=== PATIENT | male | born 1960 | race Caucasian/White ===

== ENCOUNTER → 2016-06-09 | Outpatient (CLI) | payer OTHER ==
--- NOTE | 2016-06-09 14:08 | XR ---
EXAMINATION TYPE: XR chest 2V DATE OF EXAM: 06/09/2016 1:55 PM COMPARISON: NONE HISTORY: Shortness of breath TECHNIQUE: Frontal and lateral views of the chest are obtained. FINDINGS: Scattered senescent parenchymal changes noted. Hyperinflation compatible with COPD. No evidence for infiltrate. No evidence for atelectasis. Heart size is stable. Mediastinal structures are stable and grossly unremarkable. No evidence for hilar prominence. Degenerative changes dorsal spine. IMPRESSION: 1. No evidence for acute pulmonary disease.
== END | disposition home or self-care (01) ==
LOC: RADXRMAIN 13:35
PROVIDERS: ATTEND Family Medicine
DX: F17.200 Nicotine dependence, unspecified, uncomplicated (principal); R93.8 Abnormal findings on diagnostic imaging of other specified body structures
CPT/HCPCS: 71020

== ENCOUNTER → 2018-01-22 | Outpatient (CLI) | payer OTHER ==
[2018-01-22 09:22] LABS: ALT 46 U/L (21-72); AST 28 U/L (17-59); Cholesterol 141 mg/dL (<200); HDL Cholesterol 36 mg/dL (40-60); LDL Cholesterol,Calculated 95 mg/dL (0-99); Triglycerides 49 mg/dL (<150)
== END | disposition home or self-care (01) ==
LOC: LABWHC1 08:12
PROVIDERS: ATTEND Internal Medicine Cardiovascular Disease
DX: E78.2 Mixed hyperlipidemia (principal)
CPT/HCPCS: 36415; 80061; 84450; 84460

== ENCOUNTER 2019-10-10 07:30 | Emergency (ER) | payer OTHER ==
[2019-10-10] MEDS ORDERED: DIPH,PERTUS(ACELL)TETVAC-LF 0.5 ML VIAL IM ONE (07:53)
--- NOTE | 2019-10-10 07:57 | ED ---
General Adult HPI - General Chief complaint: Fall Stated complaint: fall Time Seen by Provider: 10/10/19 07:43 Source: patient, RN notes reviewed, old records reviewed Mode of arrival: ambulatory Limitations: no limitations - History of Present Illness Initial comments: 59 yo male presenting for evaluation of left ankle pain. Patient had fallen from a ladder landing on his left ankle this occurred yesterday. He's had increased pain and swelling in the left ankle since the fall. He denies head neck or back trauma. His only complaint is left ankle pain. He did have an abrasion on the medial aspect of his left ankle and is uncertain of when his last tetanus immunization was. No anticoagulation. - Related Data Home Medications Medication Instructions Recorded Confirmed Aspirin 325 mg PO HS 07/02/14 07/02/14 Previous Rx's Medication Instructions Recorded Aspirin 325 mg PO DAILY tab 07/03/14 Atorvastatin [Lipitor] 80 mg PO HS #90 tab 07/03/14 Metoprolol Tartrate [Lopressor] 25 mg PO BID #180 tab 07/03/14 Nitroglycerin Sl Tabs [Nitrostat] 0.4 mg SUBLINGUAL Q5M PRN #25 tab 07/03/14 Prasugrel [Effient] 10 mg PO DAILY #90 tab 07/03/14 Allergies Allergy/AdvReac Type Severity Reaction Status Date / Time No Known Allergies Allergy Verified 10/10/19 07:39 Review of Systems ROS Statement: Those systems with pertinent positive or pertinent negative responses have been documented in the HPI. ROS Other: All systems not noted in ROS Statement are negative. Past Medical History Past Medical History: Coronary Artery Disease (CAD), GERD/Reflux, Hyperlipidemia, Hypertension, Myocardial Infarction ([place]) Additional Past Medical History / Comment(s): ( NSTEMI 07-02-14), KIDNEY STONES. RT INGUINAL HERNIA History of Any Multi-Drug Resistant Organisms: None Reported Past Surgical History: Appendectomy, Heart Catheterization With Stent, Tonsillectomy Additional Past Surgical History / Comment(s): 1989 HAD POLYP REMOVED FROM THROAT-BENIGN, 07-02-14 STENT TO LAS Past Anesthesia/Blood Transfusion Reactions: No Reported Reaction Date of Last Stent Placement:: 07-02-14 Past Psychological History: No Psychological Hx Reported Smoking Status: Current every day smoker Past Alcohol Use History: None Reported Past Drug Use History: None Reported - Past Family History Father Family Medical History: Myocardial Infarction ([place]) Additional Family Medical History / Comment(s): from massive mi age 42 Mother Family Medical History: Unable to Obtain General Exam Limitations: no limitations General appearance: alert, in no apparent distress Head exam: Present: atraumatic, normocephalic Eye exam: Present: normal appearance, PERRL Neck exam: Present: normal inspection Respiratory exam: Present: normal lung sounds bilaterally. Absent: respiratory distress, wheezes Cardiovascular Exam: Present: regular rate, normal rhythm GI/Abdominal exam: Present: soft. Absent: distended, tenderness, guarding Extremities exam: Present: tenderness, joint swelling, calf tenderness, other (Left ankle is swollen, ecchymotic, there is soft tissue swelling and abrasion on the medial aspect. No laceration noted. Patient is able to move all digits. ) Course Vital Signs 10/10/19 07:33 Temperature 97.7 F Pulse Rate 81 Respiratory 18 Rate Blood Pressure 116/73 O2 Sat by Pulse 99 Oximetry Procedures - Orthopedic Splinting/Casting Injury #1 Side: left Lower Extremity Injury Location: ankle Lower Extremity Immobilizer: stirrup splint Other Orthopedic Equipment: crutches Additional Comments: Patient has normal cap refill, normal sensation, neurovascularly intact both before and after splinting. Medical Decision Making - Medical Decision Making 59-year-old with left ankle injury. X-rays performed, negative for acute fracture dislocation, showing significant soft tissue swelling which is apparent on exam. I'll ultrasound performed which is negative for DVT. Patient has large amount of soft tissue swelling and ecchymosis, there is concern for ligamentous injury. He is placed in a splint in the emergency department. He is instructed to elevate and ice the extremity. He will take Motrin for pain. He has crutches and will be nonweightbearing. He is given orthopedic follow-up. Disposition Clinical Impression: Ankle sprain Disposition: HOME SELF-CARE Condition: Good Instructions (If sedation given, give patient instructions): Ankle Sprain (ED) Is patient prescribed a controlled substance at d/c from ED?: No Referrals: Alethea Dior MD [Primary Care Provider] - 1-2 days Les Ramos DO [Medical Doctor] - 1-2 days Time of Disposition: 09:37
--- NOTE | 2019-10-10 08:34 | XR ---
EXAMINATION TYPE: XR tibia fibula LT, XR ankle complete LT DATE OF EXAM: 10/10/2019 CLINICAL HISTORY: Left ankle and lower extremity pain after fall off of a ladder and subsequent contu varun. TECHNIQUE: Two views of the left leg are obtained. COMPARISON: None. FINDINGS: There is no acute fracture or dislocation seen in the left tibia or fibula. The left knee and ankle joints appear within normal limits. Subcutaneous soft tissue swelling is seen of the mid a nd distal medial left lower extremity. Soft tissue swelling is also seen over the ankle joint. Small calcaneal heel spur. IMPRESSION: Subcutaneous soft tissue swelling over the medial lower extremity and ankle without acute fracture or dislocation seen in the left ankle, tibia or fibula.
--- NOTE | 2019-10-10 09:18 | US ---
EXAMINATION TYPE: US venous doppler duplex LE LT DATE OF EXAM: 10/10/2019 9:07 AM COMPARISON: US 2008 CLINICAL HISTORY: dvt sp trauma. Left lower leg pain and swelling following fall off ladder couple da ys ago SIDE PERFORMED: Left TECHNIQUE: The lower extremity deep venous system is examined utilizing real time linear array sonog danielle with graded compression, doppler sonography and color-flow sonography. VESSELS IMAGED: External Iliac Vein (EIV) Common Femoral Vein Deep Femoral Vein Greater Saphenous Vein * Femoral Vein Popliteal Vein Small Saphenous Vein * Proximal Calf Veins (* superficial vessels) Grayscale, color doppler, spectral doppler imaging performed of the deep veins of the left lower extr emities. There is normal flow, compressibility, vascular waveforms. Left Leg: Appears negative for DVT IMPRESSION: No sonographic evidence of deep venous thrombosis within the left lower extremities.
[2019-10-10 09:54] VITALS: BP 111/84; PULSE 71; RESP 16; TEMP 97.5
== END 2019-10-10 09:54 | disposition home or self-care (01) ==
LOC: EC 07:30
DX: S93.402A Sprain of unspecified ligament of left ankle, initial encounter (principal); I25.10 Atherosclerotic heart disease of native coronary artery without angina pectoris; I10 Essential (primary) hypertension; I25.2 Old myocardial infarction; F17.200 Nicotine dependence, unspecified, uncomplicated; Z23 Encounter for immunization; Z79.82 Long term (current) use of aspirin; Z95.5 Presence of coronary angioplasty implant and graft; W11.XXXA Fall on and from ladder, initial encounter; Y93.89 Activity, other specified; Y92.89 Other specified places as the place of occurrence of the external cause
CPT/HCPCS: 29515; 90471; 90715; 99284

== ENCOUNTER → 2020-07-08 | Outpatient (CLI) | payer OTHER ==
[2020-07-08 20:55] LABS: Chol/HDL Ratio 4.56
== END | disposition home or self-care (01) ==
LOC: LABWHC1 12:13
PROVIDERS: ATTEND Internal Medicine Cardiovascular Disease
DX: E78.2 Mixed hyperlipidemia (principal)
CPT/HCPCS: 36415; 80061; 84450; 84460

== ENCOUNTER → 2021-07-30 | Outpatient (CLI) | payer OTHER ==
--- NOTE | 2021-07-30 10:08 | CTL ---
EXAMINATION TYPE: CT Low Dose Lung DATE OF EXAM ORDERED: 07/30/2021 HISTORY: 61-year-old male presents with history of tobacco use. Lung cancer screening CT DLP: 117.[address] CTDI: 3.1 mGy Automated exposure control for dose reduction was used. SCREENING VISIT: Baseline COMPARISON: Chest x-ray 06/09/2016 TECHNIQUE: Low dose computed tomography scan was performed through the chest with coronal and sagitta l reconstructions. CT DIAGNOSTIC QUALITY: Satisfactory FINDINGS: Heart is normal size without pericardial effusion. Three-vessel coronary artery calcifications are pr esent. Mild to moderate atherosclerotic arch calcifications with a bovine configuration to the aortic arch. Numerous nonenlarged and borderline and mildly enlarged mediastinal lymph nodes are present. These me asure up to 1 cm upper paratracheal, 1.4 cm prevascular space, 1.2 cm short axis AP window, 2.4 x 1.7 cm lower right paratracheal, and 1.7 cm short axis subcarinal. There is moderate to advanced centrilobular emphysema. No consolidation or pleural effusion. There is a 2.4 cm large nodule at the periphery of the right base and smaller 1.0 cm nodule anterior basilar right lower lobe. Further PET/CT evaluation recommended. Visualized upper abdomen shows no gross abnormality. Bones: Mild degenerative disc disease with disc bulges mid to lower thoracic spine. Osteopenia. No os seous destructive process seen. IMPRESSION: 1. COPD with moderate to advanced emphysema. Large 2.4 cm nodule and smaller adjacent 1.0 cm nodule a t the right base. Neoplasm not excluded and further PET/CT evaluation is recommended. 2. Nonspecific numerous nonenlarged and borderline and mildly enlarged mediastinal lymph nodes, large st measuring 2.4 x 1.7 cm lower paratracheal. This can be concurrently evaluated on PET/CT. 3. CAD with 3 vessel coronary artery calcifications. CT LUNG RAD AND CT CHEST RECOMMENDATION: Lung-Rad 4B or 4X Very Suspicious: Follow-up Chest CT with o r without contrast or PET/CT and/or tissue sampling. PET/CT may be used when there is a > 8 mm solid component. S Modifier (other clinically significant findings): None
== END | disposition home or self-care (01) ==
LOC: RADCTMAIN 08:36
PROVIDERS: ATTEND Family Medicine
DX: Z12.2 Encounter for screening for malignant neoplasm of respiratory organs (principal); Z87.891 Personal history of nicotine dependence; R91.1 Solitary pulmonary nodule; J44.9 Chronic obstructive pulmonary disease, unspecified
CPT/HCPCS: 71271

== ENCOUNTER → 2021-08-27 | Outpatient (CLI) | payer OTHER ==
--- NOTE | 2021-08-27 15:50 | PE ---
EXAMINATION TYPE: PET CT fusion skull to thigh DATE OF EXAM: 08/27/2021 COMPARISON: Low-dose lung screening CT July 30, 2021 HISTORY: Solitary pulmonary nodule, abnormal CT. TECHNIQUE: Following the intravenous administration of 11.26 mCi of F-18 FDG, whole body images are performed from the skull base to the midthigh. Images are reviewed on the computer in the coronal, a xial, and sagittal planes. Reconstructed rotating images are created on independent workstation and reviewed on the computer. A localization and attenuation correction CT is performed in conjunction with the PET scan. Blood glucose level equals 91. SCAN: Initial Scan FINDINGS: SKULL BASE AND NECK: No areas of abnormal hypermetabolic uptake. CHEST, MEDIASTINUM, AND HILAR REGION: Persistent moderate to advanced underlying emphysematous change with fairly moderate diffuse fibrosis redemonstrated. Redemonstration of posterior 2.4 x 2.0 cm righ t basilar nodule with abnormal hypermetabolic uptake, max SUV is 4.14 on axial image 131. There is 9 mm smaller nodule just anterior and superior to this without abnormal hypermetabolic uptake redemonst rated. Prominent mediastinal lymph nodes redemonstrated some are greater than 1.0 cm short axis but n o abnormal hypermetabolic uptake. ABDOMEN AND PELVIS: Normal excretion. No adrenal masses are identified. OSSEOUS STRUCTURES: No abnormal hypermetabolic uptake. OTHER CT: Mild to moderate calcified plaque bilateral carotid bulbs. Moderate to severe coronary yani ry calcification redemonstrated. Mild calcified plaque of the aorta extends into branch vessels. Ther e is large right inguinal hernia containing multiple nondilated small bowel loops along with fat and mesenteric vessels. IMPRESSION: Suspicious hypermetabolic uptake in the larger posterior right basilar nodule worrisome f or neoplasm. No abnormal hypermetabolic uptake to suggest abnormal thoracic adenopathy or metastatic disease. Note is made of bowel containing large right inguinal hernia.
== END | disposition home or self-care (01) ==
LOC: RADPETMAIN 08:21
PROVIDERS: ATTEND Family Medicine
DX: K40.90 Unilateral inguinal hernia, without obstruction or gangrene, not specified as recurrent (principal)
CPT/HCPCS: 78815; A9552

== ENCOUNTER → 2021-12-10 | Outpatient (CLI) | payer OTHER ==
--- NOTE | 2021-12-10 11:59 | US ---
EXAMINATION TYPE: US carotid duplex BILAT DATE OF EXAM: 12/10/2021 COMPARISON: NONE CLINICAL HISTORY: I77.9 DISORDER OF ARTERIES AND ARTERIOLES. stenosis TECHNIQUE: Carotid duplex ultrasound examination. Indirect Doppler criteria was utilized. FINDINGS: EXAM MEASUREMENTS: RIGHT: Peak Systolic Velocity (PSV) cm/sec ----- Right CCA: 113 ----- Right ICA: 79.3 ----- Right ECA: 125 ICA/CCA ratio: .7 RIGHT: End Diastole cm/sec ----- Right CCA: 29.9 ----- Right ICA: 33.8 ----- Right ECA: 16.2 LEFT: Peak Systolic Velocity (PSV) cm/sec ----- Left CCA: 96.9 ----- Left ICA: 74.3 ----- Left ECA: 111 ICA/CCA ratio: .8 LEFT: End Diastole cm/sec ----- Left CCA: 21.7 ----- Left ICA: 29 ----- Left ECA: 9.06 VERTEBRALS (direction of flow): Right Vertebral: Antegrade Left Vertebral: Antegrade Rhythm: Normal PATENTS EXAMINER NOTES: Intimal thickening is present. Bilateral plaque visualized. IMPRESSION: Atheromatous plaquing without significant flow-limiting stenosis bilateral carotid vessels. Criteria for Assigning % of Stenosis / Diameter reduction (Estimation based on the indirect measurements of the internal carotid artery velocities (ICA PSV). 1. Normal (no stenosis)=ICA PSV < 125 cm/s: ratio < 2.0: ICA EDV<40 cm/s. 2. Less than 50% stenosis=ICA PSV < 125 cm/s: ratio < 2.0: ICA EDV<40 cm/s. 3. 50 to 69% stenosis=ICA PSV of 125 to 230 cm/s: ration 2.0 ? 4.0: ICA EDV 40-100 cm/s. 4. Greater than 70% stenosis to near occlusion= ICA PSV > 230 cm/s: ratio > 4.0: ICA EDV > 100 cm/s. 5. Near occlusion= ICA PSV velocities may be low or undetectable: variable ratio and ICA EDV. 6. Total occlusion=unable to detect flow.
== END | disposition home or self-care (01) ==
LOC: RADUSWWP 10:55
PROVIDERS: ATTEND Family Medicine
DX: I65.23 Occlusion and stenosis of bilateral carotid arteries (principal)
CPT/HCPCS: 93880

== ENCOUNTER 2022-01-11 12:12 | Day surgery (SDC) | payer OTHER ==
[~2022-01-11 12:12] MED LIST: ALBUTEROL NEB (CONC) 2.5 MG/0.5 ML INHALATION ONE; LACTATED RINGERS 1,000 ML IV SCH; LIDOCAINE 2% (PF) 20 MG/ML 5 ML VIAL INHALATION ONE; LIDOCAINE VISCOUS 300 MG/15 ML CUP MUCOUS MEM ONE; SODIUM CHLORIDE 0.9% 1,000 ML IV SCH
[2022-01-11] MEDS ORDERED: fentaNYL (PF) 50 MCG/ML 2 ML AMP ONE (13:25)
[2022-01-11] MEDS ORDERED: LIDOCAINE 4% LTA KIT (4 ML) TOPICAL ONE (13:25)
[2022-01-11] MEDS ORDERED: PHENYLEPHRINE-0.9% NACL SYG 1,000 MCG/10 ML SYRINGE ONE (13:25)
[2022-01-11] MEDS ORDERED: LIDOCAINE 2% INJ 20 MG/ML (2 ML VIAL) ONE (13:25)
[2022-01-11] MEDS ORDERED: PROPOFOL 10 MG/ML 20 ML VIAL IV ONE (13:25)
[2022-01-11] MEDS ORDERED: SUCCINYLCHOLINE CHLORIDE 200 MG/10 ML VIAL IV ONE (13:25)
[2022-01-11] MEDS ORDERED: ePHEDrine 50 MG/ML 1 ML VIAL ONE (13:25)
[2022-01-11] MEDS ORDERED: MIDAZOLAM 2 MG/2 ML VIAL ONE (13:25)
--- NOTE | 2022-01-11 13:37 | CT ---
EXAMINATION TYPE: CT Chest whitney Higgins Protocol DATE OF EXAM: 01/11/2022 COMPARISON: 08/27/2021, 07/30/2021 HISTORY: Pre bronchial navigation CT DLP: 692 mGycm Automated exposure control for dose reduction was used. FINDINGS: Hypertrophic changes in the spine and chronic rib cage deformities on the right noted small hiatal he rnia is seen. Structures of the upper abdomen demonstrate no additional abnormality. Nonspecific 2 mm lucency involving the left transverse process of T12 with fusion of the vertebral costal junction. T his should be monitored on a short-term basis given the presence of lung nodule. Early metastatic dis ease would be difficult to exclude. Coronary artery calcification and atherosclerotic change aorta. Shotty adenopathy in the mediastinum. Suspect pathologic adenopathy in the left hilum measuring short axis of 1.5 cm. Diffuse emphysematou s changes are seen with centrilobular and paraseptal emphysematous changes. Large mass at the right l zechariah base measuring 3.5 cm noted. Additional right lower lobe pulmonary nodules measuring 1 cm again n oted. IMPRESSION: 1. Preprocedural planning with large right lower lobe lung mass. See above. 2. Diffuse emphysematous changes. 3. Coronary artery calcification. 4. Pathologic adenopathy left hilum measuring 1.5 cm short axis.
[2022-01-11] MEDS ORDERED: SODIUM CHLORIDE 0.9% 500 ML 500 ML IV ONE (15:08)
--- NOTE | 2022-01-11 15:14 | P.PCN ---
Date of Procedure: 01/11/22 Operative Findings: Operative Findings: 1 right lower lobe mass 2 Mediastinal lymphadenopathy Postoperative Diagnosis: 1 right lower lobe mass 2 mediastinal lymphadenopathy Procedure(s) Performed: 1 flexible bronchoscopy, airway inspection 2 navigation bronchoscopy, transbronchial biopsy of a right on the right lower lobe mass, brushing of the right lower lobe mass, transbronchial needle aspirate of the right lower lobe mass 3 endobronchial ultrasound 4 EBUS guided transbronchial needle aspirate of subcarinal station 7 and paratracheal lymph nodes Surgeon: Lisa Barnes Director Orange #1: Renate Christopher Estimated Blood Loss (ml): 5 cc Pathology: TBBX, brushings and needle aspirate of the right lower lobe mass i The TBNA of station 7 and station 4R lymph nodes Condition: stable Disposition: same day Operative Findings: The patient had a preoperative computed tomography scan of the chest using the Veran protocol. The CAT scan images were reviewed. The right lower lobe opacity was identified it was mapped appropriately. The CAT scan images are uploaded into a USB and then into the [employer] tower. After obtaining the consent the patient was taken to the OR suite he was i ntubated and put on mechanical ventilation by anesthesia then the scope was advanced to the ET tube until the Trachea was seen and it was normal and then the elsy appears normal then the scope advanced to the left main and ERIN LB1- LB3 were seen and no endobronchial lesions were seen then the scope advanced to the lingula and the LB4 and LB5 were seen and no endobronchial lesions were seen the scope retracted and advanced to the left lower lobes LB6 to LB12 were seen one by one and no endobronchial lesions, then the scope was retracted back to the elsy and advanced to the Right main and RUL RB1 and RB2 and RB3 were seen one by one and no endobronchial lesions were seen the scope. The bronchoscope was then retracted and advanced to the BI and RML RB4 and RB5 were seen and no endobronchial lesions were seen then it was retracted and advanced to the RLL RB6 to RB12 were seen one by one and no endobronchial lesions. Navigation bronchoscopy was performed. The main elsy and the secondary elsy on the left were used as the reference points and appropriate calibration was done. Following that, using a navigation guidance , the bronchoscope was advanced to the right lower lobe superior segment and various transbronchial biopsies, transbronchial brushings and transbronchial needle aspirate of of the right lower lobe opacity was done without any complications. Then EBUS was used and the lymph nodes were examined. Direct measurement of the mediastinal lymph nodes revealed a 20x15 mm station 4R lymph node, 25x20 mm station 7 lymph node . Several other smaller lymph nodes were seen scattered in the paratracheal region involving precarinal, left paratracheal thoracic area. I performed transbronchial needle aspirate of station 7 and a total of 5 passes FNA without major bleeding station 4 R lymph nodes were a total of 3 passes were obtained. No major bleeding and the scope was removed and taken out in total the patient was send to the floor in stable condition The bronchoscope was removed, the patient will be extubated and then transferred to recovery. A follow-up chest x-ray will be done in recovery.
[2022-01-11 15:23] VITALS: TEMP 97
[2022-01-11 15:24] VITALS: RESP 16
--- NOTE | 2022-01-11 16:09 | XR ---
EXAMINATION TYPE: XR chest 1V DATE OF EXAM: 01/11/2022 4:03 PM COMPARISON: Chest radiographs from 01/07/2022, CT chest 01/11/2022. TECHNIQUE: XR chest 1V Frontal view of the chest. CLINICAL INDICATION:Male, 61 years old with history of RLL biopsy; FINDINGS: Lungs/Pleura: There is flattening of the diaphragm with increased lucency of the lungs. No evidence o f pneumothorax, pleural effusion or focal consolidation. Prominent/coarsened interstitial lung markin gs bilaterally. No pneumothorax, pleural effusion or focal consolidation. Known right lower lobe nodu les not well visualized. Pulmonary vascularity: Unremarkable. Heart/mediastinum: Cardiomediastinal silhouette is unremarkable. Atherosclerotic calcifications are seen in the aorta. Musculoskeletal: No acute osseous pathology. IMPRESSION: 1. No pneumothorax. 2. COPD changes with prominent interstitial lung markings likely representing fibrotic changes. 3. Known right lower lobe nodule is not well visualized.
[2022-01-11 16:24] VITALS: BP 132/79; PULSE 75
== END 2022-01-11 16:50 | disposition home or self-care (01) ==
LOC: ORWHC2ENDO 12:12
PROVIDERS: ATTEND Internal Medicine Critical Care Medicine
DX: R91.1 Solitary pulmonary nodule (principal); I25.2 Old myocardial infarction; I25.10 Atherosclerotic heart disease of native coronary artery without angina pectoris; I10 Essential (primary) hypertension; K21.9 Gastro-esophageal reflux disease without esophagitis; Z79.52 Long term (current) use of systemic steroids; Z79.899 Other long term (current) drug therapy; Z95.5 Presence of coronary angioplasty implant and graft; J44.9 Chronic obstructive pulmonary disease, unspecified; Z90.89 Acquired absence of other organs; Z98.890 Other specified postprocedural states; Z84.89 Family history of other specified conditions; Z87.891 Personal history of nicotine dependence
CPT/HCPCS: 31629; 88104; 88305; 88173; 88342; 88341; 71045; 71250; 31625; 31633; 31627; 31652; J2250; J0330; J3010; J2370; J2704; J2001; 31623

== ENCOUNTER → 2022-01-28 | Outpatient (CLI) | payer OTHER ==
[2022-01-28 10:50] LABS: Partial Thromboplastin Time 24.7 sec (22.0-30.0); Prothrombin Time 10.6 sec (9.0-12.0)
[2022-01-28 14:51] LABS: Basophils # (A) 0.05 X 10*3/uL (0.00-0.10); Basophils % (A) 0.6 %; Eosinophils # (A) 0.12 X 10*3/uL (0.04-0.35); Eosinophils % (A) 1.3 %; HCT 46.7 % (39.6-50.0); HGB 15.8 g/dL (13.0-17.0); Immature Grans, Automated 0.3 %; Lymphocytes # (A) 2.54 X 10*3/uL (0.90-5.00); Lymphocytes % (A) 28.2 %; MCH 32.4 pg (27.0-32.0); MCHC 33.8 g/dL (32.0-37.0); MCV 95.7 fL (80.0-97.0); Mean Platelet Volume 9.4 fL (9.5-12.2); Monocytes # (A) 0.67 X 10*3/uL (0.20-1.00); Monocytes % (A) 7.4 %; NRBC Per 100 WBC 0 /100 WBCS (0.0-0.0); Neutrophils # (A) 5.59 X 10*3/uL (1.80-7.70); Neutrophils % (A) 62.2 %; Platelet Count 195 X 10*3/uL (140-440); RBC 4.88 X 10*6/uL (4.40-5.60); RDW 13.7 % (11.5-14.5)
[2022-01-28 16:13] LABS: African American GFR (CKD) 96.1 (60.0-200.0); Anion Gap 9.3 mmol/L (10.00-18.00); Blood Urea Nitrogen 17.7 mg/dL (9.0-27.0); Carbon Dioxide 23.4 mmol/L (20.0-27.5); Non-African American GFR(CKD) 82.9 (60.0-200.0)
== END | disposition home or self-care (01) ==
LOC: LABPAT 09:28
PROVIDERS: ATTEND Thoracic Surgery (Cardiothoracic Vascular Surgery)
DX: Z01.812 Encounter for preprocedural laboratory examination (principal); R91.1 Solitary pulmonary nodule
CPT/HCPCS: 80051; 82565; 82947; 84520; 85025; 85610; 85730; 86850; 86900; 86901

== ENCOUNTER 2022-02-04 05:52 | Inpatient (IN) | payer OTHER ==
[2022-02-04] MEDS ORDERED: DEXAMETHASONE SOD PHOSPHATE 4 MG/ML 1 ML VIAL IV ONE (05:53)
[2022-02-04] MEDS ORDERED: LACTATED RINGERS 1,000 ML IV SCH (05:53)
[2022-02-04] MEDS ORDERED: MIDAZOLAM 2 MG/2 ML VIAL IV PRN (05:53)
[2022-02-04] MEDS ORDERED: ONDANSETRON 4 MG/2 ML VIAL IVP ONE (05:53)
[2022-02-04] MEDS ORDERED: LIDOCAINE 1% (10MG/ML) FOR IV START INTRADERMA PRN (05:53)
[2022-02-04] MEDS ORDERED: HYDROmorphone 0.5 MG/0.5 ML SYRINGE IVP PRN ×2 (07:00→15:03)
[2022-02-04] MEDS ORDERED: MIDAZOLAM 2 MG/2 ML VIAL IV ONE (07:07)
[2022-02-04] MEDS ORDERED: ALBUMIN HUMAN 5% (25gm) 500 ML VIAL IVPB ONE (07:15)
[2022-02-04] MEDS ORDERED: ROPIVACAINE 5 MG/ML 30 ML VIAL ONE (07:15)
[2022-02-04] MEDS ORDERED: LIDOCAINE 2% INJ 20 MG/ML (2 ML VIAL) ONE (07:15)
[2022-02-04] MEDS ORDERED: GLYCOPYRROLATE 0.2 MG/ML 2 ML VIAL ONE (07:15)
[2022-02-04] MEDS ORDERED: SODIUM CHLORIDE 0.9% (PF) 10 ML VIAL ONE (07:15)
[2022-02-04] MEDS ORDERED: PHENYLEPHRINE-0.9% NACL SYG 1,000 MCG/10 ML SYRINGE ONE (07:15)
[2022-02-04] MEDS ORDERED: NEOSTIGMINE 1 MG/ML 10 ML VIAL ONE (07:15)
[2022-02-04] MEDS ORDERED: DEXAMETHASONE SOD PHOSPHATE 4 MG/ML 1 ML VIAL ONE (07:15)
[2022-02-04] MEDS ORDERED: ePHEDrine 50 MG/ML 1 ML VIAL ONE (07:15)
[2022-02-04] MEDS ORDERED: SUCCINYLCHOLINE CHLORIDE 200 MG/10 ML VIAL IV ONE (07:15)
[2022-02-04] MEDS ORDERED: MIDAZOLAM 2 MG/2 ML VIAL ONE (07:15)
[2022-02-04] MEDS ORDERED: PROPOFOL 10 MG/ML 20 ML VIAL IV ONE (07:15)
[2022-02-04] MEDS ORDERED: fentaNYL (PF) 50 MCG/ML 2 ML AMP ONE (07:15)
[2022-02-04] MEDS ORDERED: ROCURONIUM 10 MG/ML (5 ML VIAL) IV ONE (07:15)
[2022-02-04] MEDS ORDERED: HYDROmorphone (PF) 1 MG/ML ONE (07:15)
[2022-02-04] MEDS ORDERED: BUPIVACAINE (PF) 0.25% 30 ML VIAL SQ ONE ×4 (07:29→08:15)
[2022-02-04 09:30] LABS: Allen Test Performed? Yes
[2022-02-04 09:33] LABS: ABG Base Excess -9.3 mmol/L; ABG HCO3 18 mmol/L (21-25); ABG Oxygen Saturation 89.7 % (94-97); ABG PCO2 45 mmHg (35-45); ABG PH 7.22 (7.35-7.45); ABG PO2 65 mmHg (83-108); ABG TCO2 20 mmol/L (19-24)
[2022-02-04] MEDS ORDERED: LACTATED RINGERS 1,000 ML IV ONE ×2 (10:04→12:57)
[2022-02-04 10:40] LABS: Allen Test Performed? Yes
[2022-02-04 10:43] LABS: ABG Base Excess -8.2 mmol/L; ABG HCO3 19 mmol/L (21-25); ABG Oxygen Saturation 89.7 % (94-97); ABG PCO2 45 mmHg (35-45); ABG PH 7.24 (7.35-7.45); ABG PO2 64 mmHg (83-108); ABG TCO2 21 mmol/L (19-24)
[2022-02-04 11:44] LABS: Allen Test Performed? Yes
[2022-02-04 11:45] LABS: ABG Base Excess -10.7 mmol/L; ABG HCO3 17 mmol/L (21-25); ABG Oxygen Saturation 96.2 % (94-97); ABG PCO2 37 mmHg (35-45); ABG PH 7.25 (7.35-7.45); ABG PO2 88 mmHg (83-108); ABG TCO2 18 mmol/L (19-24)
[2022-02-04 14:42] LABS: Allen Test Performed? Yes
[2022-02-04 14:47] LABS: ABG Base Excess -7.5 mmol/L; ABG HCO3 20 mmol/L (21-25); ABG Oxygen Saturation 99.9 % (94-97); ABG PCO2 48 mmHg (35-45); ABG PH 7.23 (7.35-7.45); ABG PO2 215 mmHg (83-108); ABG TCO2 22 mmol/L (19-24)
[2022-02-04] MEDS ORDERED: IPRATROPIUM-ALBUTEROL 3 ML NEB IH PRN (15:03)
[2022-02-04] MEDS ORDERED: ONDANSETRON 4 MG/2 ML VIAL IVP PRN (15:03)
[2022-02-04] MEDS ORDERED: traMADol 50 MG TAB PO PRN ×2 (15:03)
[2022-02-04] MEDS ORDERED: DEXTROSE 5%-0.45% NACL 1,000 ML IV SCH (15:03)
[2022-02-04] MEDS ORDERED: SODIUM BICARB 8.4% 50 ML SYR (1 MEQ/ML) IV STA (15:24)
--- NOTE | 2022-02-04 15:32 | XR ---
EXAMINATION TYPE: XR chest 1V DATE OF EXAM: 02/04/2022 3:23 PM COMPARISON: Chest radiograph 01/11/2022, CT chest 01/11/2022. TECHNIQUE: XR chest 1V Frontal view of the chest. CLINICAL INDICATION:Male, 61 years old with history of post lobectomy; FINDINGS: Lungs/Pleura: Postsurgical changes from lobectomy with small right apical pneumothorax. COPD changes with similar bibasilar reticular interstitial opacities. Pulmonary vascularity: Unremarkable. Heart/mediastinum: Cardiomediastinal silhouette is unremarkable. Musculoskeletal: No acute osseous pathology. Other findings: None Lines/Tubes: Right thoracotomy tube is present and directed towards the lung apex without evidence of pneumothorax . IMPRESSION: 1. Post surgical changes from lobectomy with small right apical pneumothorax. Right thoracotomy tube tip is demonstrated at the right lung apex. 2. COPD changes with prominent bilateral interstitial reticular opacities likely are present fibroti c changes.
--- NOTE | 2022-02-04 15:36 | P.OP ---
Date of Procedure: 02/04/22 Preoperative Diagnosis: Lung Nodule Postoperative Diagnosis: Right lung carcinoma Procedure(s) Performed: 1. Bronchoscopy 2. Right video assisted thorascopic surgery converted to open anterolateral thoracotomy 3. Right lower lobe wedge resection of lung nodule 4. Right lower lobectomy 5. Mediastinal lymph node dissection 6. Intercostal nerve block 3 levels Implants: #28 F Chest tube Anesthesia: GETA Surgeon: Andrew Drew Estimated Blood Loss (ml): 750 IV fluids (ml): 3,000 Pathology: other (Right lower lobe wedge, lobectomy, LN stations 4,7,12) Condition: stable Disposition: ICU Indications for Procedure: This patient is a 61 year-old male who an extensive smoking history who had a lung cancer screening CT earlier this year that revealed two right lower lobe nodules, one of which was PET avid as well as some mediastinal lymphadenopathy. He underwent EBUS which did show some atypical cells in station 7 but other nodes were negative. He also underwent navigational bronchoscopy in an attempt to biopsy the nodule which was unsuccessful. Given these findings and no evidence of any other metastatic disease the decision was made to proceed with wedge biopsy followed by lobectomy if carcinoma. All risks, benefits and alternatives to surgery were discussed with the patient and he was in agreement to proceed. Operative Findings: Unable to tolerate single lung ventilation towards the end of the procedure. Converted to open to take posterior fissure and lymph nodes. Description of Procedure: The patient was brought to the operating room and placed in the supine position. He was intubated with a double lumen tube and general anesthesia was induced. Bronchoscopy was performed to check placement of the tube and for diagnostic purposes. There were no endobronchial lesions or secretions noted on either side. The patient was positioned in the left lateral decubitus position and the right chest was prepped and draped in the usual sterile fashion. A time-out was performed and antibiotics were given. I made a 2cm incision in the 7th ICS posterior axillary line. I made another 2cm incision 9th ICS mid axillary line and 6th ICS anterior axillary line. 0.25% m arcaine was used to create intercostal nerve blocks in these areas. The right lower lobe was inspected and the tumor was identified. The lung was fibrotic with severe adhesions to the upper lobe. These were taken down with harmonic. Several firings of the endo PARMJIT were used to wedge out the lower lobe mass. This was sent for frozen section analysis which was positive for carcinoma. The harmonic scalpel was used to take down the mediastinal pleura anteriorly and posteriorly as well as the inferior pulmonary ligament. The inferior pulmonary vein was identified, encircled and stapled using a vascular load. Next the anterior great fissure was taken using a firing of the endo PARMJIT purple load. Blunt dissection was carried out in the fissure to locate the ongoing pulmonary artery. The 3 separate branches of the PA were encircled and stapled separately given their proximity to the middle lobe branch. Next the bronchus to the lower lobe was identified, encircled with a vessel loop and stapled after a test clamp was performed which was negative. A level 12 node was taken at this point. At this point, the patient was not tolerating single lung ventilation due to very low reserve. We attempted to isolate and un-isolate multiple times but I could not see adequately enough to take the posterior fissue with the stapler. I decided to convert the procedure to an anterolateral thoracotomy. We then briefly isolated the lung for a few seconds and completed the posterior fissure with 2 firings of the endo PARMJIT purple load. The specimen was passed off to pathology. I then took level 4 and 7 lymph node stations. We could only isolate for a few seconds at a time, There were no major level 8 or 9 nodes noted. The chest was irrigated and a leak test was performed which was negative. A 28F chest tube was placed via the inferior camera incision and the thoracotomy was closed in layers of vicrl and PDS with 4 pericostal sutures. Skin glue was applied and the chest tube was attached to suction without air leak. The patient was extubated by the end of the procedure and went to recovery in stable condition. All counts were correct.
[2022-02-04] MEDS ORDERED: SODIUM BICARB 8.4% 50 ML VIAL (1 MEQ/ML) IV ONE (15:38)
[2022-02-04 16:24] LABS: ABG Base Excess 2.2 mmol/L; ABG HCO3 27 mmol/L (21-25); ABG PCO2 47 mmHg (35-45); ABG PH 7.37 (7.35-7.45); ABG TCO2 29 mmol/L (19-24); Allen Test Performed? Yes
[2022-02-04 16:26] LABS: ABG PO2 57 mmHg (83-108)
--- NOTE | 2022-02-04 16:40 | P.CNPUL ---
History of Present Illness Consult date: 02/04/22 Reason for consult: lung mass History of present illness: 61-year-old male patient with chronic smoking, COPD with a preserved FEV1 of 90% of predicted, And then impaired diffusion capacity of around 30% of predicted, was found to have a large right lower lobe mass and mediastinal lymphadenopathy. This was urgently found on a low-dose CAT scan of the chest that was done on 07/30/2021. PET scan showed also some mild metabolic activity in the right lower lobe pulmonary nodule. The mediastinum showed no metabolic activity. The patient did not follow with any physicians and [place] [facility] mid [place] for the same problem. At that point, I performed a medication bronchoscopy and endobronchial ultrasound and mediastinal lymph node sampling. The medication bronchoscopy was nondiagnostic. Nevertheless, the right lower lobe pulmonary nodule was and a CAT scan of the chest that was done on 01/12/2020 showed a right lower lobe mass measuring 3.5 cm in size. Additional right lower lobe pulmonary nodules measured 1 cm again was noted. The mediastinal lymph nodes were again enlarged and based on that the patient was taken to the operating room for a lobectomy. The patient underwent a initial right video-assisted thoracoscopic surgery that was converted to open anterolateral thoracotomy. 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 Following that, the patient underwent a right lower lobectomy and mediastinal lymph node sampling. Intercostal nerve block at 3 different levels were also done. The patient currently is extubated and the patient is currently on oxygen at 5 L per minute nasal cannula. His chest tube output is minimal at this point in time and there is no evidence of any air leak. . Blood gases showed a pH of 7.23 with a pCO2 of 48 and pO2 of 215 and this was done and FiO2 of 100% while the patient was still intubated. Another blood gases was sent from recovery and is also still pending for now.. The postoperative chest x-ray showed post thoracotomy changes in the right lower lobe. The patient has a right-sided chest tube in place. There could be a tiny right apical pneumothorax. Otherwise there is also some increased interstitial markings bilaterally in addition to COPD. the patient is calm and comfortable. The patient is currently on IV fluids with normal saline at the rate of 75 mL an hour. The patient will have a Bardales catheter inserted. A CBC will be also sent as the patient probably had excessive blood loss intraoperatively. A unit of packed RBCs also on hold for now. The patient is arousable. He is still in the postoperative state and is quite drowsy at very easily arousable. Pain seems to be under adequate control for now. He was given 2 doses of 50 mEq of sodium bicarb and the follow-up blood gases showed a pH of 7.37 with a pCO2 of 47 and a pO2 of 57. I'm going to increase the oxygen flow to 8 L nasal cannula. Review of Systems ROS unobtainable: due to mental status Past Medical History Past Medical History: Coronary Artery Disease (CAD), GERD/Reflux, Hyperlipidemia, Hypertension, Myocardial Infarction ([place]) Additional Past Medical History / Comment(s): PET SCAN ON 08/27/21 SHOWS RIGHT BASILAR LUNG NODULE. ( NSTEMI 07-02-14), KIDNEY STONES. RT INGUINAL HERNIA, emphysema Last Myocardial Infarction Date:: DATE UNKNOWN History of Any Multi-Drug Resistant Organisms: None Reported Past Surgical History: Appendectomy, Heart Catheterization With Stent, Tonsillectomy Additional Past Surgical History / Comment(s): 1989 HAD POLYP REMOVED FROM THROAT-BENIGN, 07-02-14 STENT TO LAS, recent aide. bronchoscopy Past Anesthesia/Blood Transfusion Reactions: No Reported Reaction Date of Last Stent Placement:: 07-02-14 Smoking Status: Current every day smoker - Past Family History Father Family Medical History: Myocardial Infarction ([place]) Additional Family Medical History / Comment(s): from [place] age 42 Mother Family Medical History: Unable to Obtain Medications and Allergies Home Medications Medication Instructions Recorded Confirmed Type Aspirin 325 mg PO HS 07/02/14 02/02/22 History Atorvastatin [Lipitor] 80 mg PO HS #90 tab 07/03/14 02/04/22 Rx Metoprolol Tartrate [Lopressor] 25 mg PO BID #180 tab 07/03/14 02/04/22 Rx Nitroglycerin Sl Tabs [Nitrostat] 0.4 mg SUBLINGUAL Q5M PRN #25 tab 07/03/14 02/04/22 Rx Fluticasone/Umeclidin/Vilanter 1 inhalation INHALATION HS 02/02/22 02/04/22 History [Trelegy Ellipta 100-62.5-25] Allergies Allergy/AdvReac Type Severity Reaction Status Date / Time No Known Allergies Allergy Verified 02/01/22 10:40 Physical Exam Vitals: Vital Signs Temp Pulse Pulse Resp BP BP BP 02/04/22 16:01 96.8 F L 79 16 86/41 02/04/22 15:05 97 F L 72 12 100/52 96/42 02/04/22 07:30 66 16 02/04/22 07:18 69 16 105/73 02/04/22 06:27 97.3 F L 73 18 107/64 Pulse Ox 02/04/22 16:01 95 02/04/22 15:05 98 02/04/22 07:30 95 02/04/22 07:18 96 02/04/22 06:27 95 Intake and Output 02/04/22 02/04/22 02/04/22 06:59 14:59 22:59 Intake Total 400 2650 0 Output Total 750 Balance 400 1900 0 Intake: IV 400 2650 Blood Product 0 Unit 0 Output: Estimated Blood Loss 750 Other: Weight 79.8 kg Gen. appearance the patient is calm and comfortable breathing normally on 5 L O2 nasal cannula. Breathing is nonlabored Head exam was generally normal. There was no scleral icterus or corneal arcus. Mucous membranes were moist. Neck was supple and without jugular venous distension, thyromegaly, or carotid bruits. Carotids were easily palpable bilaterally. There was no adenopathy. Lungs sounds are diminished in the right lung base. No wheezes overall currently crackles this point in time. There is a right-sided chest tube in place. Cardiac exam revealed the PMI to be normally situated and sized. The rhythm was regular and no extrasystoles were noted during several minutes of auscultation. The first and second heart sounds were normal and physiologic splitting of the second heart sound was noted. There were no murmurs, rubs, clicks, or gallops. Abdominal exam revealed normal bowel sounds. The abdomen was soft, non-tender, and without masses, organomegaly, or appreciable enlargement of the abdominal aorta. Examination of the extremities revealed easily palpable radial, femoral and pedal pulses. There was no cyanosis, clubbing or edema. Examination of the skin revealed no evidence of significant rashes, suspicious appearing nevi or other concerning lesions. Surgical wound site over the right chest area is dry clean and intact. The patient has not care line in his left radial artery. Neurologically, he is arousable. Moving all 4 extremities. Neurologic exam is nonfocal. Results - Laboratory Findings ABG ABG pH 7.23 (7.35-7.45) L 02/04/22 14:30 ABG pCO2 48 mmHg (35-45) H 02/04/22 14:30 ABG pO2 215 mmHg (83-108) H 02/04/22 14:30 ABG O2 Saturation 99.9 % (94-97) H 02/04/22 14:30 Abnormal lab findings: Abnormal Labs 01/28/22 02/04/22 02/04/22 09:58 09:19 10:39 ABG pH 7.22 L 7.24 L ABG pCO2 ABG pO2 65 L 64 L ABG HCO3 18 L 19 L ABG Total CO2 ABG O2 Saturation 89.7 L 89.7 L Crossmatch See Detail 02/04/22 02/04/22 11:30 14:30 ABG pH 7.25 L 7.23 L ABG pCO2 48 H ABG pO2 215 H ABG HCO3 17 L 20 L ABG Total CO2 18 L ABG O2 Saturation 99.9 H Crossmatch - Diagnostic Findings Chest x-ray: image reviewed Assessment and Plan Plan: Right lower lobe mass 3.5 cm along with mediastinal lymphadenopathy. No indication bronchoscopy and EBUS sampling of the distal lymph nodes were nondiagnostic. The patient underwent a lesion wedge resection of the right lower lobe followed by a completion right lower lobectomy and mediastinal lymph node sampling. This was initially started with a thoracoscopic approach and following that the patient underwent open anterolateral thoracotomy. Currently postop day #0. The patient was extubated Acute hypoxic history failure currently on 5 L O2 nasal cannula and O2 flow is going to be adjusted. Most recent blood gases were noted COPD with impairment in diffusion capacity, preserved FEV1 based on the preop already function test Chronic smoker Known history of coronary artery disease History of non-ST segment elevation myocardial infarction June 2014 Hypertension Hyperlipidemia Plan Transfer the patient to the intensive care unit Titrate oxygen flow to maintain a saturation above 90% Increase his IV fluids to normal saline at the rate of 125 mL an hour. His blood pressure is currently soft Inserted bardales Do a quick CBC and complete metabolic profile and transfuse if needed Provide the patient incentive spirometer Monitor the output from the right-sided chest tube and currently there is no evidence of any air leak Daily chest x-rays DuoNeb nebulized treatment [id number] Compression devices to lower extremities for DVT prophylaxis We'll continue to follow and the patient is going to be changed to the intensive care unit for now.
[2022-02-04] MEDS ORDERED: SODIUM CHLORIDE 0.9% 1,000 ML IV SCH (16:45)
[2022-02-04] MEDS ORDERED: SODIUM CHLORIDE 0.9% 1,000 ML IV ONE (17:26)
[2022-02-04 17:59] LABS: Glucose,Whole Blood 143 mg/dL (70-110)
[2022-02-04] MEDS: HEPARIN SODIUM,PORCINE/PF 5,000 UNIT/0.5 ML SYRINGE SQ SCH (18:12)
[2022-02-04 18:27] LABS: ALT 27 U/L (4-49); AST 41 U/L (17-59); African American GFR (CKD) >90 (>60 ml/min/1.73 sqM); Alkaline Phosphatase 50 U/L (38-126); Anion Gap 9 mmol/L; Blood Urea Nitrogen 17 mg/dL (9-20); Calcium 7.3 mg/dL (8.4-10.2); Carbon Dioxide 23 mmol/L (22-30); Chloride 104 mmol/L (98-107); Glucose 147 mg/dL (74-99); Non-African American GFR(CKD) >90 (>60 ml/min/1.73 sqM); Potassium 3.9 mmol/L (3.5-5.1); Sodium 136 mmol/L (137-145); Total Bilirubin 1.6 mg/dL (0.2-1.3); Total Protein 4.8 g/dL (6.3-8.2)
[2022-02-04 18:29] LABS: Basophils % (A) 0 %; Eosinophils % (A) 0 %; HCT 35.2 % (39.0-53.0); HGB 11.6 gm/dL (13.0-17.5); Lymphocytes # (A) 0.6 k/uL (1.0-4.8); Lymphocytes % (A) 7 %; MCH 32.5 pg (25.0-35.0); MCHC 33.1 g/dL (31.0-37.0); MCV 98.2 fL (80.0-100.0); Mean Platelet Volume 7.3; Monocytes # (A) 0.4 k/uL (0-1.0); Monocytes % (A) 4 %; Neutrophils # (A) 8.2 k/uL (1.3-7.7); Neutrophils % (A) 89 %; Platelet Count 121 k/uL (150-450); RBC 3.58 m/uL (4.30-5.90); RDW 13.5 % (11.5-15.5); WBC 9.2 k/uL (3.8-10.6)
[2022-02-04] MEDS: IPRATROPIUM-ALBUTEROL 3 ML NEB IH SCH ×2 (18:32→21:00)
[2022-02-04 18:38] LABS: ABG Base Excess 1.1 mmol/L; ABG HCO3 26 mmol/L (21-25); ABG Oxygen Saturation 91.2 % (94-97); ABG PCO2 41 mmHg (35-45); ABG TCO2 27 mmol/L (19-24); Allen Test Performed? Yes
[2022-02-04 18:45] LABS: ABG PO2 56 mmHg (83-108)
[2022-02-04 18:46] LABS: INR 1.1 (<1.2); Partial Thromboplastin Time 24.8 sec (22.0-30.0); Prothrombin Time 11.7 sec (9.0-12.0)
[2022-02-04] MEDS ORDERED: FUROSEMIDE 10 MG/ML 2 ML VIAL IV ONE (18:58)
[2022-02-04] MEDS: POTASSIUM CHLORIDE 10 MEQ in WATER FOR INJECTION 1 100ML.BAG IVPB SCH ×2 (19:13→20:50)
--- NOTE | 2022-02-04 20:13 | XR ---
EXAMINATION TYPE: XR chest 1V portable DATE OF EXAM: 02/04/2022 HISTORY: Shortness of breath. COMPARISON: 02/04/22 TECHNIQUE: Single view of the chest is submitted. FINDINGS: Right-sided chest tube is unchanged in position. Previously noted tiny right apical pneumothorax is n ot redemonstrated at this time. Interstitial infiltrates throughout both lung gleason remain essentially unchanged. The heart is stable. Hilar and mediastinal structures are within normal limits. Degenerative changes are seen of the dorsal spine. IMPRESSION: 1. Right-sided chest tube is unchanged in position. Previously noted tiny right apical pneumothorax is not redemonstrated at this time.
[2022-02-04] MEDS ORDERED: ALBUMIN HUMAN 5% 250 ML in EMPTY BAG 1 BAG IVPB STA (20:22)
[2022-02-04] MEDS ORDERED: ALBUMIN HUMAN 5% 250 ML IVPB ONE (20:28)
[2022-02-04] MEDS ORDERED: ALBUMIN HUMAN 5% 250 ML in EMPTY BAG 1 BAG IVPB ONE (21:30)
[2022-02-05] MEDS: POTASSIUM CHLORIDE 10 MEQ in WATER FOR INJECTION 1 100ML.BAG IVPB SCH (00:42)
[2022-02-05] MEDS: ATORVASTATIN 80 MG TAB PO SCH ×2 (00:43→20:55)
[2022-02-05] MEDS: ASPIRIN 325 MG TAB PO SCH ×2 (00:43→20:55)
[2022-02-05] MEDS: HEPARIN SODIUM,PORCINE/PF 5,000 UNIT/0.5 ML SYRINGE SQ SCH ×3 (00:43→16:55)
[2022-02-05] MEDS: METOPROLOL TARTRATE 25 MG TAB PO SCH ×2 (00:43→08:40)
[2022-02-05 05:20] LABS: Basophils % (A) 0 %; Eosinophils % (A) 0 %; HCT 31.5 % (39.0-53.0); HGB 10.2 gm/dL (13.0-17.5); Lymphocytes # (A) 1.5 k/uL (1.0-4.8); Lymphocytes % (A) 16 %; MCH 31.8 pg (25.0-35.0); MCHC 32.4 g/dL (31.0-37.0); MCV 97.9 fL (80.0-100.0); Mean Platelet Volume 7.7; Monocytes # (A) 0.6 k/uL (0-1.0); Monocytes % (A) 6 %; Neutrophils # (A) 7.4 k/uL (1.3-7.7); Neutrophils % (A) 77 %; Platelet Count 114 k/uL (150-450); RBC 3.22 m/uL (4.30-5.90); RDW 13.9 % (11.5-15.5); WBC 9.6 k/uL (3.8-10.6)
[2022-02-05 05:25] LABS: ALT 28 U/L (4-49); AST 72 U/L (17-59); African American GFR (CKD) >90 (>60 ml/min/1.73 sqM); Alkaline Phosphatase 46 U/L (38-126); Anion Gap 6 mmol/L; Blood Urea Nitrogen 16 mg/dL (9-20); Calcium 7.2 mg/dL (8.4-10.2); Carbon Dioxide 24 mmol/L (22-30); Chloride 101 mmol/L (98-107); Glucose 139 mg/dL (74-99); Non-African American GFR(CKD) >90 (>60 ml/min/1.73 sqM); Sodium 131 mmol/L (137-145); Total Bilirubin 0.7 mg/dL (0.2-1.3); Total Protein 4.7 g/dL (6.3-8.2)
[2022-02-05] MEDS: IPRATROPIUM-ALBUTEROL 3 ML NEB IH SCH ×4 (07:09→19:05)
--- NOTE | 2022-02-05 07:18 | P.PN ---
Subjective Progress Note Date: 02/05/22 Principal diagnosis: Lung nodule, right lung carcinoma. History of current tobacco dependence, COPD, marijuana use, coronary artery disease with myocardial infarction status post drug-eluting stent to the LAD and June 2014, hypertension, hyperlipidemia, family history of premature coronary artery disease POD #1 bronchoscopy, right video-assisted thoracoscopic surgery converted to open with anterolateral thoracotomy, right lower lobe wedge resection of lung nodule with subsequent right lower lobectomy, mediastinal lymph node dissection, intercostal nerve blocks at 3 levels The patient was seen and examined this morning sitting up in bed in the intensive care unit in no acute distress. Denies significant pain and in fact has taken no pain medication since surgery, denies shortness of breath currently although did have some shortness of breath last night which improved after IV Lasix was given. Does complain of some right arm numbness but does state he's had this before when driving, usually relieved with moving the arm. Currently remains on 6 L high flow nasal cannula with oxygen saturation 92-93%. Sandhu catheter was placed in the recovery room and urine output has been adequate overnight. The patient did get 1 unit packed blood cells yesterday. He was assisted to get up into a recliner this morning which he did without difficulty. No other new concerns. Objective - Vital Signs Vital signs: Vital Signs Temp 97.7 F 02/05/22 04:00 Pulse 78 02/05/22 06:00 Resp 19 02/05/22 06:00 BP 91/63 02/05/22 06:00 Pulse Ox 96 02/05/22 06:00 FiO2 Intake & Output 02/04/22 02/05/22 02/05/22 18:59 06:59 18:59 Intake Total 3110 1680 Output Total 1100 1760 Balance 2009 Weight 85.5 kg Intake: IV 2800 1130 Albumin 250 Arterial pressure bag 30 D5 0.45 NaCl- 500 Kefzol 50 Potassium 300 Intake, IV Titration 150 Amount Dextrose 5%-0.45% NaCl 1, 100 000 ml @ 50 mls/hr IV . Q20H BHAVNA Rx#:[id number] ceFAZolin 2 gm In Sodium 50 Chloride 0.9% 50 ml @ 100 mls/hr IVPB Q8HR BHAVNA Rx# :[id number] Oral 400 Blood Product 310 Rc As-1 Unit 310 [id number] Output: Chest Tube Drainage 300 Chest Tube Left 300 Urine 350 1460 Estimated Blood Loss 750 Other: Voiding Method Indwelling Catheter Indwelling Catheter ABP, PAP, CO, CI - Last Documented Arterial Blood Pressure 112/49 - Exam CONSTITUTIONAL: Appears comfortable, cooperative, no acute distress RESPIRATORY: Lungs sounds diminished bilaterally. Respirations even, nonlabored. Currently on 6 L high flow nasal cannula with oxygen saturation 92- 93%. Able to achieve 500-800 mL on incentive spirometry. Strong cough. CARDIOVASCULAR: S1, S2 present. Regular rate and rhythm, sinus rhythm on telemetry. Palpable peripheral pulses bilaterally. No edema present. No calf pain or tenderness noted. SCDs present. GASTROINTESTINAL: Abdomen soft, nontender, nondistended. Active bowel sounds present 4 quadrants. Tolerating clear liquids GENITOURINARY: Sandhu present draining clear, yellow urine. Output 60-90 mL/h overnight INTEGUMENTARY: Skin is warm and dry with evidence of good perfusion. Thoracic incision well approximated and covered with dry intact dressing. NEUROLOGIC: Cranial nerves II through XII intact MUSKULOSKELETAL: Able to move all extremities, strength equal bilaterally PSYCHIATRIC: Alert and oriented to person place and time, appropriate affect, intact judgment and insight INVASIVE LINES AND TUBES: Right pleural chest tubes present and connected to wall suction, minimal intermittent air leak present with coughing, 140 mL serosanguineous drainage overnight, 400 mL since surgery - Allied health notes Allied health notes reviewed: nursing - Labs CBC & Chem 7: 02/05/22 04:47 02/05/22 04:47 Labs: Abnormal Lab Results - Last 24 Hours (Table) 01/28/22 02/04/22 02/04/22 Range/Units 09:58 09:19 10:39 RBC (4.30-5.90) m/uL Hgb (13.0-17.5) gm/dL Hct (39.0-53.0) % Plt Count (150-450) k/uL Neutrophils # (1.3-7.7) k/uL Lymphocytes # (1.0-4.8) k/uL ABG pH 7.22 L 7.24 L (7.35-7.45) ABG pCO2 (35-45) mmHg ABG pO2 65 L 64 L (83-108) mmHg ABG HCO3 18 L 19 L (21-25) mmol/L ABG Total CO2 (19-24) mmol/L ABG O2 Saturation 89.7 L 89.7 L (94-97) % Sodium (137-145) mmol/L Creatinine (0.66-1.25) mg/dL Glucose (74-99) mg/dL POC Glucose (mg/dL) (70-110) mg/dL Calcium (8.4-10.2) mg/dL Total Bilirubin (0.2-1.3) mg/dL AST (17-59) U/L Total Protein (6.3-8.2) g/dL Albumin (3.5-5.0) g/dL Crossmatch See Detail 02/04/22 02/04/22 02/04/22 Range/Units 11:30 14:30 16:16 RBC (4.30-5.90) m/uL Hgb (13.0-17.5) gm/dL Hct (39.0-53.0) % Plt Count (150-450) k/uL Neutrophils # (1.3-7.7) k/uL Lymphocytes # (1.0-4.8) k/uL ABG pH 7.25 L 7.23 L (7.35-7.45) ABG pCO2 48 H 47 H (35-45) mmHg ABG pO2 215 H 57 L* (83-108) mmHg ABG HCO3 17 L 20 L 27 H (21-25) mmol/L ABG Total CO2 18 L 29 H (19-24) mmol/L ABG O2 Saturation 99.9 H 91.0 L (94-97) % Sodium (137-145) mmol/L Creatinine (0.66-1.25) mg/dL Glucose (74-99) mg/dL POC Glucose (mg/dL) (70-110) mg/dL Calcium (8.4-10.2) mg/dL Total Bilirubin (0.2-1.3) mg/dL AST (17-59) U/L Total Protein (6.3-8.2) g/dL Albumin (3.5-5.0) g/dL Crossmatch 02/04/22 02/04/22 02/04/22 Range/Units 17:56 18:02 18:02 RBC 3.58 L (4.30-5.90) m/uL Hgb 11.6 L (13.0-17.5) gm/dL Hct 35.2 L (39.0-53.0) % Plt Count 121 L (150-450) k/uL Neutrophils # 8.2 H (1.3-7.7) k/uL Lymphocytes # 0.6 L (1.0-4.8) k/uL ABG pH (7.35-7.45) ABG pCO2 (35-45) mmHg ABG pO2 (83-108) mmHg ABG HCO3 (21-25) mmol/L ABG Total CO2 (19-24) mmol/L ABG O2 Saturation (94-97) % Sodium 136 L (137-145) mmol/L Creatinine (0.66-1.25) mg/dL Glucose 147 H (74-99) mg/dL POC Glucose (mg/dL) 143 H (70-110) mg/dL Calcium 7.3 L (8.4-10.2) mg/dL Total Bilirubin 1.6 H (0.2-1.3) mg/dL AST (17-59) U/L Total Protein 4.8 L (6.3-8.2) g/dL Albumin 3.0 L (3.5-5.0) g/dL Crossmatch 02/04/22 02/05/22 02/05/22 Range/Units 18:32 04:47 04:47 RBC 3.22 L (4.30-5.90) m/uL Hgb 10.2 L (13.0-17.5) gm/dL Hct 31.5 L (39.0-53.0) % Plt Count 114 L (150-450) k/uL Neutrophils # (1.3-7.7) k/uL Lymphocytes # (1.0-4.8) k/uL ABG pH (7.35-7.45) ABG pCO2 (35-45) mmHg ABG pO2 56 L* (83-108) mmHg ABG HCO3 26 H (21-25) mmol/L ABG Total CO2 27 H (19-24) mmol/L ABG O2 Saturation 91.2 L (94-97) % Sodium 131 L (137-145) mmol/L Creatinine 0.63 L (0.66-1.25) mg/dL Glucose 139 H (74-99) mg/dL POC Glucose (mg/dL) (70-110) mg/dL Calcium 7.2 L (8.4-10.2) mg/dL Total Bilirubin (0.2-1.3) mg/dL AST 72 H (17-59) U/L Total Protein 4.7 L (6.3-8.2) g/dL Albumin 3.0 L (3.5-5.0) g/dL Crossmatch - Imaging and Cardiology Chest x-ray: report reviewed, image reviewed Assessment and Plan Assessment: 1. 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 Acute hypoxic respiratory failure currently on 6 L high flow nasal cannula 3. Current tobacco dependence, smokes 1 pk/day x 44 years 4. COPD, FEV1 90% with DLCO 30% 5. Marijuana use 6. History of coronary artery disease with myocardial infarction status post drug-eluting stent to the LAD and June 2014 7. History of hypertension, treated 8. Hyperlipidemia, treated 9. Family history of premature coronary artery disease Plan: 1. Continue left pleural chest tube to continuous wall suction for another 24 hours. Monitor for air leak resolution 2. Wean O2 as tolerated. Encourage incentive spirometry is 10 times every hour while awake. Bronchodilators per pulmonology 3. Increase activity, ambulate as tolerated. May disconnect suction for short periods of time to allow patient to ambulate in the hallway 4. GI/DVT prophylaxis 5. Monitor daily labs and x-rays. Final pathology pending, will follow 6. Pain control with current medication regimen. Encourage pain medication minimum 3 times daily 7. Discontinue arterial line 8. Discontinue Sandhu catheter. May bladder scan and straight cathed for greater than 300 mL residual 9. Hep-Lock IV 10. Continue home medications 11. Smoking cessation counseling provided, will provide community resources upon discharge. Patient denies need for smoking cessation medications 12. Likely will transfer out of intensive care unit later today 13. More recommendations to follow
[2022-02-05] MEDS ORDERED: MIDODRINE 5 MG TAB PO SCH (08:32)
[2022-02-05] MEDS: PANTOPRAZOLE 40 MG TABLET PO SCH (08:40)
--- NOTE | 2022-02-05 08:51 | P.PN ---
Subjective Progress Note Date: 02/05/22 61-year-old male patient with chronic smoking, COPD with a preserved FEV1 of 90% of predicted, And then impaired diffusion capacity of around 30% of predicted, was found to have a large right lower lobe mass and mediastinal lymphadenopathy. This was urgently found on a low-dose CAT scan of the chest that was done on 07/30/2021. PET scan showed also some mild metabolic activity in the right lower lobe pulmonary nodule. The mediastinum showed no metabolic activity. The patient did not follow with any physicians and he presented to me and mid December for the same problem. At that point, I performed a medication bronchoscopy and endobronchial ultrasound and mediastinal lymph node sampling. The medication bronchoscopy was nondiagnostic. Nevertheless, the right lower lobe pulmonary nodule was and a CAT scan of the chest that was done on 01/12/2020 showed a right lower lobe mass measuring 3.5 cm in size. Additional right lower lobe pulmonary nodules measured 1 cm again was noted. The mediastinal lymph nodes were again enlarged and based on that the patient was taken to the operating room for a lobectomy. The patient underwent a initial right video-assisted thoracoscopic surgery that was converted to open anterolateral thoracotomy. 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 Following that, the patient underwent a right lower lobectomy and mediastinal lymph node sampling. Intercostal nerve block at 3 different levels were also done. The patient currently is extubated and the patient is currently on oxygen at 5 L per minute nasal cannula. His chest tube output is minimal at this point in time and there is no evidence of any air leak. . Blood gases showed a pH of 7.23 with a pCO2 of 48 and pO2 of 215 and this was done and FiO2 of 100% while the patient was still intubated. Another blood gases was sent from recovery and is also still pending for now.. The postoperative chest x-ray showed post thoracotomy changes in the right lower lobe. The patient has a right-sided chest tube in place. There could be a tiny right apical pneumothorax. Otherwise there is also some increased interstitial markings bilaterally in addition to COPD. the patient is calm and comfortable. The patient is currently on IV fluids with normal saline at the rate of 75 mL an hour. The patient will have a Sandhu catheter inserted. A CBC will be also sent as the patient probably had excessive blood loss intraoperatively. A unit of packed RBCs also on hold for now. The patient is arousable. He is still in the postoperative state and is quite drowsy at very easily arousable. Pain seems to be under adequate control for now. He was given 2 doses of 50 mEq of sodium bicarb and the follow-up blood gases showed a pH of 7.37 with a pCO2 of 47 and a pO2 of 57. I'm going to increase the oxygen flow to 8 L nasal cannula. On 02/05/2022, the patient is awake and alert and sitting up on a chair. The patient is currently on 5 L of oxygen by nasal cannula. He has a right-sided chest tube with intermittent air leak and the total amount of output from the right-sided chest tube has been in the order of 600 mL since he arrived from the operating room. His pain is under adequate control for now. His blood pressure is soft with a systolic blood pressure being 79 and the mean arterial pressures around 60. He is in sinus tachycardia. He is slightly bronchospastic and wheezy on examination. Surgical wound site is dry clean and intact. No nausea. No vomiting. No diarrhea. No abdominal pain. Chest x-ray shows no evidence of any pneumothorax. There is background COPD on the chest x-ray in the right- sided chest tube is in a good location. The patient's white cell count of 9.6 with a hemoglobin of 10.2. Platelet count is at 114. BUN is at 60 with a creatinine of 0.6. Sodium level is at 131. IV fluids in the form of 0.9 at the rate of 50 mL an hour. At the same time, the patient is using incentive spirometer, pulling approximately 500. Objective - Vital Signs Vital signs: Vital Signs Temp 97.7 F 02/05/22 04:00 Pulse 88 02/05/22 07:20 Resp 20 02/05/22 07:00 BP 91/63 02/05/22 06:00 Pulse Ox 100 02/05/22 07:00 FiO2 Intake & Output 02/04/22 02/05/22 02/05/22 18:59 06:59 18:59 Intake Total 3110 1733 53 Output Total 1100 1875 100 Balance 2009 Weight 85.5 kg Intake: IV 2800 1183 53 Albumin 250 Arterial pressure bag 33 3 D5 0.45 NaCl- 550 50 Kefzol 50 Potassium 300 Intake, IV Titration 150 Amount Dextrose 5%-0.45% NaCl 1, 100 000 ml @ 50 mls/hr IV . Q20H [facility] Rx#:[id number] ceFAZolin 2 gm In Sodium 50 Chloride 0.9% 50 ml @ 100 mls/hr IVPB Q8HR [facility] Rx# :[id number] Oral 400 Blood Product 310 Rc As-1 Unit 310 [id number] Output: Chest Tube Drainage 350 50 Chest Tube Left 350 50 Urine 350 1525 50 Estimated Blood Loss 750 Other: Voiding Method Indwelling Catheter Indwelling Catheter ABP, PAP, CO, CI - Last Documented Arterial Blood Pressure 92/50 - Exam CONSTITUTIONAL: Appears comfortable, cooperative, no acute distress RESPIRATORY: Lungs sounds diminished bilaterally. Respirations even, nonlabored. Currently on 6 L high flow nasal cannula with oxygen saturation 92- 93%. Able to achieve 500-800 mL on incentive spirometry. Strong cough. CARDIOVASCULAR: S1, S2 present. Regular rate and rhythm, sinus rhythm on telemetry. Palpable peripheral pulses bilaterally. No edema present. No calf pain or tenderness noted. SCDs present. GASTROINTESTINAL: Abdomen soft, nontender, nondistended. Active bowel sounds present 4 quadrants. Tolerating clear liquids GENITOURINARY: Sandhu present draining clear, yellow urine. Output 60-90 mL/h overnight INTEGUMENTARY: Skin is warm and dry with evidence of good perfusion. Thoracic incision well approximated and covered with dry intact dressing. NEUROLOGIC: Cranial nerves II through XII intact MUSKULOSKELETAL: Able to move all extremities, strength equal bilaterally PSYCHIATRIC: Alert and oriented to person place and time, appropriate affect, intact judgment and insight INVASIVE LINES AND TUBES: Right pleural chest tubes present and connected to wall suction, minimal intermittent air leak present with coughing, 140 mL serosanguineous drainage overnight, 400 mL since surgery - Labs CBC & Chem 7: 02/05/22 04:47 02/05/22 04:47 Labs: Abnormal Lab Results - Last 24 Hours (Table) 01/28/22 02/04/22 02/04/22 Range/Units 09:58 09:19 10:39 RBC (4.30-5.90) m/uL Hgb (13.0-17.5) gm/dL Hct (39.0-53.0) % Plt Count (150-450) k/uL Neutrophils # (1.3-7.7) k/uL Lymphocytes # (1.0-4.8) k/uL ABG pH 7.22 L 7.24 L (7.35-7.45) ABG pCO2 (35-45) mmHg ABG pO2 65 L 64 L (83-108) mmHg ABG HCO3 18 L 19 L (21-25) mmol/L ABG Total CO2 (19-24) mmol/L ABG O2 Saturation 89.7 L 89.7 L (94-97) % Sodium (137-145) mmol/L Creatinine (0.66-1.25) mg/dL Glucose (74-99) mg/dL POC Glucose (mg/dL) (70-110) mg/dL Calcium (8.4-10.2) mg/dL Total Bilirubin (0.2-1.3) mg/dL AST (17-59) U/L Total Protein (6.3-8.2) g/dL Albumin (3.5-5.0) g/dL Crossmatch See Detail 02/04/22 02/04/22 02/04/22 Range/Units 11:30 14:30 16:16 RBC (4.30-5.90) m/uL Hgb (13.0-17.5) gm/dL Hct (39.0-53.0) % Plt Count (150-450) k/uL Neutrophils # (1.3-7.7) k/uL Lymphocytes # (1.0-4.8) k/uL ABG pH 7.25 L 7.23 L (7.35-7.45) ABG pCO2 48 H 47 H (35-45) mmHg ABG pO2 215 H 57 L* (83-108) mmHg ABG HCO3 17 L 20 L 27 H (21-25) mmol/L ABG Total CO2 18 L 29 H (19-24) mmol/L ABG O2 Saturation 99.9 H 91.0 L (94-97) % Sodium (137-145) mmol/L Creatinine (0.66-1.25) mg/dL Glucose (74-99) mg/dL POC Glucose (mg/dL) (70-110) mg/dL Calcium (8.4-10.2) mg/dL Total Bilirubin (0.2-1.3) mg/dL AST (17-59) U/L Total Protein (6.3-8.2) g/dL Albumin (3.5-5.0) g/dL Crossmatch 02/04/22 02/04/22 02/04/22 Range/Units 17:56 18:02 18:02 RBC 3.58 L (4.30-5.90) m/uL Hgb 11.6 L (13.0-17.5) gm/dL Hct 35.2 L (39.0-53.0) % Plt Count 121 L (150-450) k/uL Neutrophils # 8.2 H (1.3-7.7) k/uL Lymphocytes # 0.6 L (1.0-4.8) k/uL ABG pH (7.35-7.45) ABG pCO2 (35-45) mmHg ABG pO2 (83-108) mmHg ABG HCO3 (21-25) mmol/L ABG Total CO2 (19-24) mmol/L ABG O2 Saturation (94-97) % Sodium 136 L (137-145) mmol/L Creatinine (0.66-1.25) mg/dL Glucose 147 H (74-99) mg/dL POC Glucose (mg/dL) 143 H (70-110) mg/dL Calcium 7.3 L (8.4-10.2) mg/dL Total Bilirubin 1.6 H (0.2-1.3) mg/dL AST (17-59) U/L Total Protein 4.8 L (6.3-8.2) g/dL Albumin 3.0 L (3.5-5.0) g/dL Crossmatch 02/04/22 02/05/22 02/05/22 Range/Units 18:32 04:47 04:47 RBC 3.22 L (4.30-5.90) m/uL Hgb 10.2 L (13.0-17.5) gm/dL Hct 31.5 L (39.0-53.0) % Plt Count 114 L (150-450) k/uL Neutrophils # (1.3-7.7) k/uL Lymphocytes # (1.0-4.8) k/uL ABG pH (7.35-7.45) ABG pCO2 (35-45) mmHg ABG pO2 56 L* (83-108) mmHg ABG HCO3 26 H (21-25) mmol/L ABG Total CO2 27 H (19-24) mmol/L ABG O2 Saturation 91.2 L (94-97) % Sodium 131 L (137-145) mmol/L Creatinine 0.63 L (0.66-1.25) mg/dL Glucose 139 H (74-99) mg/dL POC Glucose (mg/dL) (70-110) mg/dL Calcium 7.2 L (8.4-10.2) mg/dL Total Bilirubin (0.2-1.3) mg/dL AST 72 H (17-59) U/L Total Protein 4.7 L (6.3-8.2) g/dL Albumin 3.0 L (3.5-5.0) g/dL Crossmatch Assessment and Plan Plan: Right lower lobe mass 3.5 cm along with mediastinal lymphadenopathy. No indication bronchoscopy and EBUS sampling of the distal lymph nodes were nondiagnostic. The patient underwent a lesion wedge resection of the right lower lobe followed by a completion right lower lobectomy and mediastinal lymph node sampling. This was initially started with a thoracoscopic approach and following that the patient underwent open anterolateral thoracotomy. Currently postop day #1. Today's evaluation, the patient is doing well awake and alert in the right-sided chest tube is in place. There is intermittent air leak and that is no evidence of pneumothorax on today's chest x-ray. Output from the chest tube is minimal. Pain is under adequate control Acute hypoxic history failure currently on 5 L O2 nasal cannula and O2 flow is going to be adjusted. COPD with impairment in diffusion capacity, preserved FEV1 based on the preop pulmonary function tests Chronic smoker Known history of coronary artery disease History of non-ST segment elevation myocardial infarction June 2014 Hypertension Hyperlipidemia Plan Keep the patient to the intensive care unit Titrate oxygen flow to maintain a saturation above 90%, currently on 5 L Keep the patient on IV fluids with normal saline today to 50 mL an hour Encourage oral intake and diet will be Gradually advanced pain is under adequate control. Do a quick CBC and complete metabolic profile and transfuse if needed Provide the patient incentive spirometer Monitor the output from the right-sided chest tube and currently there is no evidence of any air leak Daily chest x-rays DuoNeb nebulized treatment [id number] I will start The patient Oma Gutierrez and the patient has provided inhaler from home with his Compression devices to lower extremities for DVT prophylaxis, and addition to heparin subcu Pain control with Tylenol, tramadol and Dilaudid Monitor blood pressure and keep the patient ICU for today.
[2022-02-05] MEDS: SODIUM CHLORIDE 0.9% 1,000 ML IV SCH (09:46)
[2022-02-05] MEDS: MIDODRINE 5 MG TAB PO SCH ×2 (12:35→16:55)
[2022-02-05] MEDS: ACETAMINOPHEN TAB 500 MG TAB PO PRN (17:13)
[2022-02-06] MEDS: METOPROLOL TARTRATE 25 MG TAB PO SCH (00:12)
[2022-02-06] MEDS: HEPARIN SODIUM,PORCINE/PF 5,000 UNIT/0.5 ML SYRINGE SQ SCH ×4 (00:17→23:59)
[2022-02-06] MEDS: ACETAMINOPHEN TAB 500 MG TAB PO PRN ×4 (00:17→21:22)
[2022-02-06 04:36] LABS: HCT 31.8 % (39.0-53.0); HGB 10.6 gm/dL (13.0-17.5); MCH 32.5 pg (25.0-35.0); MCHC 33.2 g/dL (31.0-37.0); Mean Platelet Volume 7.6; Platelet Count 122 k/uL (150-450); RBC 3.24 m/uL (4.30-5.90); RDW 13.7 % (11.5-15.5); WBC 8.7 k/uL (3.8-10.6)
[2022-02-06 04:56] LABS: African American GFR (CKD) >90 (>60 ml/min/1.73 sqM); Anion Gap 6 mmol/L; Blood Urea Nitrogen 15 mg/dL (9-20); Calcium 7.6 mg/dL (8.4-10.2); Carbon Dioxide 25 mmol/L (22-30); Chloride 102 mmol/L (98-107); Glucose 97 mg/dL (74-99); Non-African American GFR(CKD) >90 (>60 ml/min/1.73 sqM); Potassium 3.6 mmol/L (3.5-5.1); Sodium 133 mmol/L (137-145)
[2022-02-06] MEDS ORDERED: Potassium Replacement Protocol 1 EACH MISC MISCELLANE PRN (05:38)
[2022-02-06] MEDS ORDERED: POTASSIUM CHLORIDE ER 20 MEQ TAB.ER PO SCH (06:00)
[2022-02-06] MEDS ORDERED: KETOROLAC 15 MG/ML 1 ML VIAL IVP PRN (07:13)
--- NOTE | 2022-02-06 07:31 | P.PN ---
Subjective Progress Note Date: 02/06/22 Principal diagnosis: Lung nodule, right lung carcinoma. History of current tobacco dependence, COPD, marijuana use, coronary artery disease with myocardial infarction status post drug-eluting stent to the LAD and June 2014, hypertension, hyperlipidemia, family history of premature coronary artery disease POD #2 bronchoscopy, right video-assisted thoracoscopic surgery converted to open with anterolateral thoracotomy, right lower lobe wedge resection of lung nodule with subsequent right lower lobectomy, mediastinal lymph node dissection, intercostal nerve blocks at 3 levels The patient was seen and examined this morning sitting up in the recliner in the intensive care unit in no acute distress. Denies pain and in fact has only taken Tylenol, denies shortness of breath. States right arm numbness has resolved. Currently remains on 4 L high flow nasal cannula with oxygen saturation 100%. Chest tube without air leak this morning. Sandhu catheter discontinued yesterday, patient continues to void. Blood pressure better with initiation of midodrine. Patient has ambulated in the hallway several times with standby assist. Overall patient seems stable. No other new concerns. Objective - Vital Signs Vital signs: Vital Signs Temp 37.5 F L 02/06/22 04:00 Pulse 75 02/06/22 06:00 Resp 20 02/06/22 06:00 BP 110/58 02/06/22 06:00 Pulse Ox 100 02/06/22 06:00 FiO2 Intake & Output 02/05/22 02/06/22 02/06/22 18:59 06:59 18:59 Intake Total 659 950 Output Total 910 1080 Balance -251 -130 Intake: IV 659 550 Arterial pressure bag 9 D5 0.45 NaCl- 100 Sodium Chloride 0.9% 1, 550 550 000 ml @ 50 mls/hr IV . Q20H [facility] Rx#:[id number] Oral 400 Output: Chest Tube Drainage 50 Chest Tube Left 50 Drainage 280 180 Right Chest 280 180 Urine 580 900 Other: Voiding Method Indwelling Catheter Urinal # Voids 1 ABP, PAP, CO, CI - Last Documented Arterial Blood Pressure 85/40 - Exam CONSTITUTIONAL: Appears comfortable, cooperative, no acute distress RESPIRATORY: Lungs sounds diminished bilaterally. Respirations even, nonlabor ed. Currently on 4 L high flow nasal cannula with oxygen saturation 100%, decreased oxygen 2 L nasal cannula with saturation 95%. Able to achieve 1000 mL on incentive spirometry. Strong cough. CARDIOVASCULAR: S1, S2 present. Regular rate and rhythm, sinus rhythm on telemetry. Palpable peripheral pulses bilaterally. No edema present. No calf pain or tenderness noted. SCDs present. GASTROINTESTINAL: Abdomen soft, nontender, nondistended. Active bowel sounds present 4 quadrants. Tolerating diet GENITOURINARY: Continues to void INTEGUMENTARY: Skin is warm and dry with evidence of good perfusion. Thoracic incision well approximated and covered with dry intact dressing. NEUROLOGIC: Cranial nerves II through XII intact MUSKULOSKELETAL: Able to move all extremities, strength equal bilaterally PSYCHIATRIC: Alert and oriented to person place and time, appropriate affect, intact judgment and insight INVASIVE LINES AND TUBES: Right pleural chest tubes present and connected to wall suction, no air leak this morning, 110 mL serosanguineous drainage overnight, 500 mL in the last 24 hours - Labs CBC & Chem 7: 02/06/22 04:16 02/06/22 04:13 Labs: Abnormal Lab Results - Last 24 Hours (Table) 02/06/22 02/06/22 Range/Units 04:13 04:16 RBC 3.24 L (4.30-5.90) m/uL Hgb 10.6 L (13.0-17.5) gm/dL Hct 31.8 L (39.0-53.0) % Plt Count 122 L (150-450) k/uL Sodium 133 L (137-145) mmol/L Calcium 7.6 L (8.4-10.2) mg/dL - Imaging and Cardiology Chest x-ray: image reviewed Assessment and Plan Assessment: 1. 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 Acute hypoxic respiratory failure, currently on 2 L nasal cannula 3. Current tobacco dependence, smokes 1 pk/day x 44 years 4. COPD, FEV1 90% with DLCO 30% 5. Marijuana use 6. History of coronary artery disease with myocardial infarction status post drug-eluting stent to the LAD and June 2014 7. History of hypertension, treated 8. Hyperlipidemia, treated 9. Family history of premature coronary artery disease Plan: 1. Right pleural chest tube placed to waterseal. If no air leak tomorrow and chest x-ray is stable we'll likely discontinue chest tube 2. Wean O2 as tolerated. Encourage incentive spirometry is 10 times every hour while awake. Bronchodilators per pulmonology 3. Increase activity, ambulate as tolerated 4. GI/DVT prophylaxis 5. Monitor daily labs and x-rays. Final pathology pending, will follow 6. Pain control with current medication regimen 7. Hep-Lock IV 8. Lopressor decreased to 12.5 mg twice a day with hold parameters, continue midodrine 9. Smoking cessation counseling provided, will provide community resources upon discharge. Patient denies need for smoking cessation medications 10. Likely will transfer out of intensive care unit later today if blood pressure remains stable 11. More recommendations to follow
--- NOTE | 2022-02-06 07:33 | XR ---
EXAMINATION TYPE: XR chest 1V portable DATE OF EXAM: 02/06/2022 HISTORY: post lobectomy COMPARISON: 02/04/2022 TECHNIQUE: Single view of the chest is submitted. FINDINGS: Right-sided chest tube is in place. No evidence for sizable pneumothorax. Mild right-sided volume los s. Interstitial pattern throughout both lungs persists The heart is stable. Hilar and mediastinal structures are within normal limits. Degenerative changes are seen of the dorsal spine. IMPRESSION: 1. Stable postoperative change without evidence for pneumothorax. 2. Prominent nonspecific interstitial pattern persists.
[2022-02-06] MEDS: IPRATROPIUM-ALBUTEROL 3 ML NEB IH SCH ×4 (08:03→19:19)
[2022-02-06] MEDS: SODIUM CHLORIDE 0.9% 1,000 ML IV SCH (08:33)
[2022-02-06] MEDS: PANTOPRAZOLE 40 MG TABLET PO SCH (08:56)
[2022-02-06] MEDS: MIDODRINE 5 MG TAB PO SCH ×3 (08:56→17:33)
[2022-02-06] MEDS: METOPROLOL TARTRATE 12.5 MG TAB PO SCH ×2 (08:57→21:22)
--- NOTE | 2022-02-06 10:04 | P.PN ---
Subjective Progress Note Date: 02/06/22 61-year-old male patient with chronic smoking, COPD with a preserved FEV1 of 90% of predicted, And then impaired diffusion capacity of around 30% of predicted, was found to have a large right lower lobe mass and mediastinal lymphadenopathy. This was urgently found on a low-dose CAT scan of the chest that was done on 07/30/2021. PET scan showed also some mild metabolic activity in the right lower lobe pulmonary nodule. The mediastinum showed no metabolic activity. The patient did not follow with any physicians and he presented to me and mid December for the same problem. At that point, I performed a medication bronchoscopy and endobronchial ultrasound and mediastinal lymph node sampling. The medication bronchoscopy was nondiagnostic. Nevertheless, the right lower lobe pulmonary nodule was and a CAT scan of the chest that was done on 01/12/2020 showed a right lower lobe mass measuring 3.5 cm in size. Additional right lower lobe pulmonary nodules measured 1 cm again was noted. The mediastinal lymph nodes were again enlarged and based on that the patient was taken to the operating room for a lobectomy. The patient underwent a initial right video-assisted thoracoscopic surgery that was converted to open anterolateral thoracotomy. 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 Following that, the patient underwent a right lower lobectomy and mediastinal lymph node sampling. Intercostal nerve block at 3 different levels were also done. The patient currently is extubated and the patient is currently on oxygen at 5 L per minute nasal cannula. His chest tube output is minimal at this point in time and there is no evidence of any air leak. . Blood gases showed a pH of 7.23 with a pCO2 of 48 and pO2 of 215 and this was done and FiO2 of 100% while the patient was still intubated. Another blood gases was sent from recovery and is also still pending for now.. The postoperative chest x-ray showed post thoracotomy changes in the right lower lobe. The patient has a right-sided chest tube in place. There could be a tiny right apical pneumothorax. Otherwise there is also some increased interstitial markings bilaterally in addition to COPD. the patient is calm and comfortable. The patient is currently on IV fluids with normal saline at the rate of 75 mL an hour. The patient will have a Sandhu catheter inserted. A CBC will be also sent as the patient probably had excessive blood loss intraoperatively. A unit of packed RBCs also on hold for now. The patient is arousable. He is still in the postoperative state and is quite drowsy at very easily arousable. Pain seems to be under adequate control for now. He was given 2 doses of 50 mEq of sodium bicarb and the follow-up blood gases showed a pH of 7.37 with a pCO2 of 47 and a pO2 of 57. I'm going to increase the oxygen flow to 8 L nasal cannula. On 02/05/2022, the patient is awake and alert and sitting up on a chair. The patient is currently on 5 L of oxygen by nasal cannula. He has a right-sided chest tube with intermittent air leak and the total amount of output from the right-sided chest tube has been in the order of 600 mL since he arrived from the operating room. His pain is under adequate control for now. His blood pressure is soft with a systolic blood pressure being 79 and the mean arterial pressures around 60. He is in sinus tachycardia. He is slightly bronchospastic and wheezy on examination. Surgical wound site is dry clean and intact. No nausea. No vomiting. No diarrhea. No abdominal pain. Chest x-ray shows no evidence of any pneumothorax. There is background COPD on the chest x-ray in the right- sided chest tube is in a good location. The patient's white cell count of 9.6 with a hemoglobin of 10.2. Platelet count is at 114. BUN is at 60 with a creatinine of 0.6. Sodium level is at 131. IV fluids in the form of 0.9 at the rate of 50 mL an hour. At the same time, the patient is using incentive spirometer, pulling approximately 500. 02/06/2022, the patient is awake and alert and sitting up on a chair. He is tender spirometer and is pulling approximately 2000. His chest x-ray shows no evidence of any pneumothorax. The right-sided chest tube is still in place and there is no evidence of any significant air leak. Total amount of output since the patient arrived from the operating room is in the order of 900 mL. Pain is under adequate control. The patient underwent a thoracotomy. Hemodynamically stable. No significant hypotension. Blood work from today shows a white cell count of 8.7 with hemoglobin of 10.6. Sodium is at 133, BUN is at 15 with a creatinine of 0.7. No other significant events otherwise for now. Chest tube will be kept for another 24 hours and this will be pulled out tomorrow. He is currently on 2 L and he can possibly be weaned down to room air oxygen. Objective - Vital Signs Vital signs: Vital Signs Temp 97.8 F 02/06/22 08:00 Pulse 78 02/06/22 09:00 Resp 20 02/06/22 09:00 BP 94/55 02/06/22 09:00 Pulse Ox 92 L 02/06/22 09:00 FiO2 Intake & Output 02/05/22 02/06/22 02/06/22 18:59 06:59 18:59 Intake Total 659 950 150 Output Total 910 1080 150 Balance -251 -130 0 Intake: IV 659 550 150 Arterial pressure bag 9 D5 0.45 NaCl- 100 Sodium Chloride 0.9% 1, 550 550 150 000 ml @ 50 mls/hr IV . Q20H [facility] Rx#:[id number] Oral 400 Output: Chest Tube Drainage 50 Chest Tube Left 50 Drainage 280 180 50 Right Chest 280 180 50 Urine 580 900 100 Other: Voiding Method Indwelling Catheter Urinal # Voids 1 1 ABP, PAP, CO, CI - Last Documented Arterial Blood Pressure 85/40 - Exam CONSTITUTIONAL: Appears comfortable, cooperative, no acute distress RESPIRATORY: Lungs sounds diminished bilaterally. Respirations even, nonlabored. Currently on 4 L high flow nasal cannula with oxygen saturation 100%, decreased oxygen 2 L nasal cannula with saturation 95%. Able to achieve 1000 mL on incentive spirometry. Strong cough. CARDIOVASCULAR: S1, S2 present. Regular rate and rhythm, sinus rhythm on telemetry. Palpable peripheral pulses bilaterally. No edema present. No calf pain or tenderness noted. SCDs present. GASTROINTESTINAL: Abdomen soft, nontender, nondistended. Active bowel sounds present 4 quadrants. Tolerating diet GENITOURINARY: Continues to void INTEGUMENTARY: Skin is warm and dry with evidence of good perfusion. Thoracic incision well approximated and covered with dry intact dressing. NEUROLOGIC: Cranial nerves II through XII intact MUSKULOSKELETAL: Able to move all extremities, strength equal bilaterally PSYCHIATRIC: Alert and oriented to person place and time, appropriate affect, intact judgment and insight INVASIVE LINES AND TUBES: Right pleural chest tubes present and connected to wall suction, no air leak this morning, 110 mL serosanguineous drainage overnight, 500 mL in the last 24 hours - Labs CBC & Chem 7: 02/06/22 04:16 02/06/22 04:13 Labs: Abnormal Lab Results - Last 24 Hours (Table) 02/06/22 02/06/22 Range/Units 04:13 04:16 RBC 3.24 L (4.30-5.90) m/uL Hgb 10.6 L (13.0-17.5) gm/dL Hct 31.8 L (39.0-53.0) % Plt Count 122 L (150-450) k/uL Sodium 133 L (137-145) mmol/L Calcium 7.6 L (8.4-10.2) mg/dL Assessment and Plan Plan: Right lower lobe mass 3.5 cm along with mediastinal lymphadenopathy. No in dication bronchoscopy and EBUS sampling of the distal lymph nodes were nondiagnostic. The patient underwent a lesion wedge resection of the right lower lobe followed by a completion right lower lobectomy and mediastinal lymph node sampling. This was initially started with a thoracoscopic approach and following that the patient underwent open anterolateral thoracotomy. Currently postop day #2. Acute hypoxic history failure currently on 2 L O2 nasal cannula and O2 flow is going to be adjusted. COPD with impairment in diffusion capacity, preserved FEV1 based on the preop pulmonary function tests Chronic smoker Known history of coronary artery disease History of non-ST segment elevation myocardial infarction June 2014 Hypertension Hyperlipidemia Plan Keep the patient to the intensive care unit Titrate oxygen flow to maintain a saturation above 90%, currently on 2 L IV fluids to KVO and initiated Lopressor Regular food Monitor the output from the right-sided chest tube and currently there is no evidence of any air leak, the right-sided chest tube has been attached to water seal Daily chest x-rays DuoNeb nebulized treatment [id number] Trelegy Ellipta and the patient has provided inhaler from home with his Compression devices to lower extremities for DVT prophylaxis, and addition to heparin subcu Pain control with Tylenol, tramadol and Dilaudid We'll continue to follow
--- NOTE | 2022-02-06 19:29 | P.ANPRN ---
Procedure Note - Anesthesia - Nerve Block Performed Right Erector Spinae Single Time Out Performed: Yes Date of Procedure: 02/04/22 Procedure Start Time: :06 Procedure Stop Time: 07:12 Location of Patient: PreOp Indication: Acute Post-Operative Pain, Requested by Surgeon Sedation Type: Sedate with meaningful contact maintained Preparation: Sterile Prep Position: Prone Needle Types: Pajunk Needle Gauge: 21 Ultrasound used to visualize needle placement: Yes Ultrasound used to observe medication spread: Yes Blood Aspirated: No Pain Paresthesia on Injection Noted: No Resistance on Injection: Normal Image Stored and Saved: Yes Events: Uneventful and Well Tolerated (ropi .5% 15cc plus ns10cc plus dexamethasone 4mg at T6)
[2022-02-06] MEDS: ATORVASTATIN 80 MG TAB PO SCH (21:22)
[2022-02-06] MEDS: ASPIRIN 325 MG TAB PO SCH (21:22)
[2022-02-07 04:11] LABS: HGB 10.7 gm/dL (13.0-17.5); MCH 31.7 pg (25.0-35.0); MCHC 32.3 g/dL (31.0-37.0); MCV 98.3 fL (80.0-100.0); Mean Platelet Volume 7.3; Platelet Count 137 k/uL (150-450); RBC 3.36 m/uL (4.30-5.90); RDW 13.6 % (11.5-15.5); WBC 9.9 k/uL (3.8-10.6)
[2022-02-07 04:23] LABS: African American GFR (CKD) >90 (>60 ml/min/1.73 sqM); Anion Gap 8 mmol/L; Blood Urea Nitrogen 13 mg/dL (9-20); Calcium 8.1 mg/dL (8.4-10.2); Carbon Dioxide 24 mmol/L (22-30); Chloride 103 mmol/L (98-107); Glucose 87 mg/dL (74-99); Non-African American GFR(CKD) >90 (>60 ml/min/1.73 sqM); Sodium 135 mmol/L (137-145)
[2022-02-07] MEDS ORDERED: FUROSEMIDE 10 MG/ML 2 ML VIAL IV STA ×2 (08:00→16:37)
[2022-02-07] MEDS ORDERED: POTASSIUM CHLORIDE ER 10 MEQ TAB.ER.PRT PO STA (08:00)
[2022-02-07] MEDS: HEPARIN SODIUM,PORCINE/PF 5,000 UNIT/0.5 ML SYRINGE SQ SCH ×3 (08:12→23:22)
[2022-02-07] MEDS: MIDODRINE 5 MG TAB PO SCH ×3 (08:12→17:59)
[2022-02-07] MEDS: METOPROLOL TARTRATE 12.5 MG TAB PO SCH ×2 (08:12→20:55)
[2022-02-07] MEDS: PANTOPRAZOLE 40 MG TABLET PO SCH (08:12)
--- NOTE | 2022-02-07 08:23 | P.PN ---
Subjective Progress Note Date: 02/07/22 Principal diagnosis: Lung nodule, right lung carcinoma. History of chronic ongoing tobacco dependence, COPD with a preoperative FEV1 90% of predicted value and a DLCO of around 30% of predicted value, marijuana use, coronary artery disease with non- ST elevated myocardial infarction status post drug-eluting stent to the LAD and June 2014, ischemic cardiomyopathy with an ejection fraction of 35%, hypertension, hyperlipidemia, family history of premature coronary artery dis ease. POD #3 bronchoscopy, right video-assisted thoracoscopic surgery converted to open with anterolateral thoracotomy, right lower lobe wedge resection of lung nodule with subsequent right lower lobectomy, mediastinal lymph node dissection, intercostal nerve blocks at 3 levels. The patient was seen and examined in follow-up today on 02/07/2022 at his bedside in the intensive care unit. Transfer orders have been placed for 4 S. medical surgical with telemetry and he is waiting for bed. Currently sitting up to the bedside chair, is awake, alert, oriented 3 and is in no acute distress. Currently rates his pain 1 out of 10 on the pain scale and denies any complaints of shortness of breath with sitting in the chair. He reports he has been up ambulating in the intensive care unit hallway with standby assistance from nursing staff and does report that he is slightly short winded with ambulating. Pathology results remain pending. He remains on 2 L nasal cannula of oxygen with oxygen saturations 95% and he is achieving 7434-9418 mL on his incentive spirometry. Bedside telemetry showing normal sinus rhythm heart rate 96 BPM. No further reports of hypotension reported and his blood pressure is currently 110/68 mmHg. He continues on Midorine 10 mg by mouth 3 times a day and meto prolol tartrate 12.5 mg by mouth twice a day. Right pleural chest tube remains in place on water seal, no air leak is present. Draining thin serosanguineous drainage with 90 mL output overnight and 150 mL output in the last 24 hours. Patient does report that there has been some scant leakage of drainage around the chest tube throughout the night. He has been afebrile last 24 hours. Objective - Vital Signs Vital signs: Vital Signs Temp 97.7 F 02/07/22 00:00 Pulse 71 02/07/22 06:00 Resp 22 02/07/22 06:00 BP 110/68 02/07/22 06:00 Pulse Ox 100 02/07/22 06:00 FiO2 Intake & Output 02/06/22 02/07/22 02/07/22 18:59 06:59 18:59 Intake Total 450 Output Total 1170 740 Balance -720 -740 Weight 79.9 kg Intake: IV 150 Sodium Chloride 0.9% 1, 150 000 ml @ 50 mls/hr IV . Q20H [facility] Rx#:[id number] Oral 300 Output: Drainage 100 90 Right Chest 100 90 Urine 1070 650 Other: Voiding Method Urinal Urinal # Voids 1 ABP, PAP, CO, CI - Last Documented Arterial Blood Pressure 85/40 - Exam CONSTITUTIONAL: Appears comfortable, cooperative, no acute distress. Currently sitting up to the bedside chair. RESPIRATORY: Lungs sounds diminished bilaterally. Respirations are symmetrical and nonlabored. Currently on 2 L nasal cannula with oxygen saturation 95%. Able to achieve 2427-7598 mL on his incentive spirometry. Strong nonproductive cough. CARDIOVASCULAR: S1, S2 present, negative for S3, gallop or murmur. Regular rate and rhythm, sinus rhythm on telemetry with heart rate 93 BPM. Palpable peripheral pulses bilaterally. No edema present. No calf pain or tenderness no abby. SCDs present. GASTROINTESTINAL: Abdomen soft, nontender, nondistended. Active bowel sounds p resent 4 quadrants. Passing flatus. Tolerating diet. GENITOURINARY: Continues to void. INTEGUMENTARY: Skin is warm and dry with no clubbing or cyanosis. Right chest thoracotomy incision well approximated and covered with dry intact dressing. NEUROLOGIC: Cranial nerves II through XII intact. No focal deficits. MUSKULOSKELETAL: Able to move all extremities, strength equal bilaterally. PSYCHIATRIC: Alert and oriented to person place and time, appropriate affect, intact judgment and insight. INVASIVE LINES AND TUBES: Right pleural chest tube present and is to waterseal, no air leak this morning, 90 mL thin serosanguineous drainage overnight, 150 mL in the last 24 hours. - Allied health notes Allied health notes reviewed: nursing - Labs CBC & Chem 7: 02/07/22 03:33 02/07/22 03:33 Labs: Abnormal Lab Results - Last 24 Hours (Table) 02/07/22 02/07/22 Range/Units 03:33 03:33 RBC 3.36 L (4.30-5.90) m/uL Hgb 10.7 L (13.0-17.5) gm/dL Hct 33.0 L (39.0-53.0) % Plt Count 137 L (150-450) k/uL Sodium 135 L (137-145) mmol/L Creatinine 0.65 L (0.66-1.25) mg/dL Calcium 8.1 L (8.4-10.2) mg/dL - Imaging and Cardiology Chest x-ray: report reviewed, image reviewed Assessment and Plan Assessment: 1. 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 Acute hypoxic respiratory failure, currently on 2 L nasal cannula 3. Chronic ongoing tobacco dependence, smokes 1 pk/day x 44 years 4. COPD, FEV1 90% with DLCO 30% 5. Marijuana use 6. History of coronary artery disease with myocardial infarction status post drug-eluting stent to the LAD and June 2014 7. History of ischemic cardiomyopathy with an ejection fraction of 35% 8. History of hypertension, treated 9. Hyperlipidemia, treated 10. Family history of premature coronary artery disease Plan: 1. His right pleural chest tube was removed without incident. 2. Wean O2 as tolerated. Encourage incentive spirometry is 10 times every hour while awake. Bronchodilators per pulmonology management. 3. Increase activity, ambulate as tolerated. 4. GI/DVT prophylaxis. 5. Monitor daily labs and chest x-rays. Final pathology pending, will follow. 6. Pain control with current medication regimen. 7. Lasix 20 mg IV 1 now and potassium chloride 10 mEq by mouth 1 now. 8. Continue Lopressor 12.5 mg twice a day with hold parameters, continue midodrine. 9. Smoking cessation counseling provided, will provide community resources upon discharge. Patient denies need for smoking cessation medications. 10. Transfer out of intensive care unit when bed available to fourth floor medical surgical unit with remote telemetry. 11. Discharge planning is in place, anticipate discharge home in the next 24 hours. 12. More recommendations to follow based on patient's clinical course. Time with Patient: Greater than 30
[2022-02-07] MEDS: IPRATROPIUM-ALBUTEROL 3 ML NEB IH SCH ×4 (08:31→20:45)
--- NOTE | 2022-02-07 10:40 | P.PN ---
Subjective Progress Note Date: 02/07/22 Principal diagnosis: Status post thoracotomy, right lower lobectomy, mediastinal lymph node dissection. Postoperative day #3 02/06/2022, the patient is awake and alert and sitting up on a chair. He is tender spirometer and is pulling approximately 2000. His chest x-ray shows no evidence of any pneumothorax. The right-sided chest tube is still in place and there is no evidence of any significant air leak. Total amount of output since the patient arrived from the operating room is in the order of 900 mL. Pain is under adequate control. The patient underwent a thoracotomy. Hemodynamically stable. No significant hypotension. Blood work from today shows a white cell count of 8.7 with hemoglobin of 10.6. Sodium is at 133, BUN is at 15 with a creatinine of 0.7. No other significant events otherwise for now. Chest tube will be kept for another 24 hours and this will be pulled out tomorrow. He is currently on 2 L and he can possibly be weaned down to room air oxygen. Reevaluated today on 02/07/2022, patient remains in the ICU, doing well, his chest tube has been removed, he is on 2 L nasal cannula, he is hemodynamically stable, not in any distress, his other fluids at KVO. Labs are basically unremarkable. WBC count is 9.9 hemoglobin is 10.7. Electrolytes and renal profile are normal. Patient could be transferred to medical surgical floor with telemetry Objective - Vital Signs Vital signs: Vital Signs Temp 97.7 F 02/07/22 00:00 Pulse 71 02/07/22 06:00 Resp 22 02/07/22 06:00 BP 110/68 02/07/22 06:00 Pulse Ox 100 02/07/22 06:00 FiO2 Intake & Output 02/06/22 02/07/22 02/07/22 18:59 06:59 18:59 Intake Total 450 Output Total 1170 740 Balance -720 -740 Weight 79.9 kg Intake: IV 150 Sodium Chloride 0.9% 1, 150 000 ml @ 50 mls/hr IV . Q20H [facility] Rx#:[id number] Oral 300 Output: Drainage 100 90 Right Chest 100 90 Urine 1070 650 Other: Voiding Method Urinal Urinal # Voids 1 ABP, PAP, CO, CI - Last Documented Arterial Blood Pressure 85/40 - Exam Physical Exam: Revealed a 61-year-old white male in no distress Head: Atraumatic, normocephalic. HEENT:[Neck is supple.] [No neck masses.] [No thyromegaly.] [No JVD.] Chest: [Clear throughout, no crackles, no rhonchi, no wheezes.] Cardiac Exam: [Normal S1 and S2, no S3 gallop, no murmur.] Abdomen: [Soft, nontender, no megaly, no rebound, no guarding, normal bowel sounds.] Extremities: [No clubbing, no edema, no cyanosis.] Neurological Exam: [No focal neurologic deficit.] Psychiatric: Normal mood affect and normal mental status examination. Skin: No rashes - Labs CBC & Chem 7: 02/07/22 03:33 02/07/22 03:33 Labs: Abnormal Lab Results - Last 24 Hours (Table) 02/07/22 02/07/22 Range/Units 03:33 03:33 RBC 3.36 L (4.30-5.90) m/uL Hgb 10.7 L (13.0-17.5) gm/dL Hct 33.0 L (39.0-53.0) % Plt Count 137 L (150-450) k/uL Sodium 135 L (137-145) mmol/L Creatinine 0.65 L (0.66-1.25) mg/dL Calcium 8.1 L (8.4-10.2) mg/dL Assessment and Plan Assessment: Impression: Status post thoracotomy, right lower lobectomy and mediastinal lymph node dissection Tobacco dependence syndrome [id number] smoking history Underlying COPD FEV1 90% with low DLCO of 30% History of ischemic cardiomyopathy ejection fraction of 35% with underlying coronary artery disease Benign essential hypertension Recommendation: Continue present supportive care measures Continue incentive spirometry Continue bronchodilators Ambulate Transfer out of ICU to a monitor bed Consider discharge planning in the next 24-48 hours. We will continue to follow Time with Patient: Less than 30
--- NOTE | 2022-02-07 11:55 | XR ---
EXAMINATION TYPE: XR chest 2V DATE OF EXAM: 02/07/2022 COMPARISON: 02/06/2022 HISTORY: 61-year-old male follow-up postlumpectomy TECHNIQUE: PA and lateral views FINDINGS: Right-sided chest tube remains in place. A small right apical pneumothorax is redemonstrated measurin g 1.3 cm, increased compared to 3 mm, previously. Interstitial changes persist but show slight improv ement. Suspect a small loculated pleural air at the right base. There is also blunting of the right c ostophrenic angle, possible trace right effusion. IMPRESSION: 1. Right-sided chest tube in place. A small right-sided pneumothorax is now demonstrated measuring 1. 3 cm. In retrospect, this is in comparison to 3 mm, previously. 2. Interstitial infiltrates show slight improvement. Possible trace right effusion.
[2022-02-07] MEDS: ASPIRIN 325 MG TAB PO SCH (20:55)
[2022-02-07] MEDS: ATORVASTATIN 80 MG TAB PO SCH (20:55)
[2022-02-08 03:25] VITALS: TEMP 97.6
--- NOTE | 2022-02-08 07:30 | P.PN ---
Subjective Progress Note Date: 02/08/22 Principal diagnosis: Lung nodule, right lung carcinoma. History of current tobacco dependence, COPD, marijuana use, coronary artery disease with myocardial infarction status post drug-eluting stent to the LAD and June 2014, hypertension, hyperlipidemia, family history of premature coronary artery disease POD #4 bronchoscopy, right video-assisted thoracoscopic surgery converted to open with anterolateral thoracotomy, right lower lobe wedge resection of lung nodule with subsequent right lower lobectomy, mediastinal lymph node dissection, intercostal nerve blocks at 3 levels The patient was seen and examined this morning sitting up in bed on the medical surgical unit in no acute distress. Denies pain and hasn't taken any pain medication in 24 hours, denies shortness of breath. Was on 2 L nasal cannula, oxygen saturation on room air noted to be between 93-98%, will check oxygen saturation with ambulation. Able to achieve 6392-2885 mL on his incentive spirometer. Chest tube was discontinued yesterday without incident, follow-up chest x-ray remains stable. Patient has ambulated in the hallway several times with standby assist. Overall patient seems stable. No other new concerns. Objective - Vital Signs Vital signs: Vital Signs Temp 97.6 F 02/08/22 02:00 Pulse 72 02/08/22 02:00 Resp 17 02/08/22 02:00 BP 100/64 02/08/22 02:00 Pulse Ox 98 02/08/22 02:00 FiO2 Intake & Output 02/07/22 02/08/22 02/08/22 18:59 06:59 18:59 Intake Total 480 Output Total 1400 Balance -1400 480 Intake: Oral 480 Output: Urine 1400 Other: # Voids 1 ABP, PAP, CO, CI - Last Documented Arterial Blood Pressure 85/40 - Exam CONSTITUTIONAL: Appears comfortable, cooperative, no acute distress RESPIRATORY: Lungs sounds diminished bilaterally. Respirations even, nonlabored. Currently on room air with oxygen saturation 93-98%. Able to achieve 8023-6613 mL on incentive spirometry. Strong cough. CARDIOVASCULAR: S1, S2 present. Regular rate and rhythm. Palpable peripheral pulses bilaterally. No edema present. No calf pain or tenderness noted. SCDs present. GASTROINTESTINAL: Abdomen soft, nontender, nondistended. Active bowel sounds present 4 quadrants. Tolerating diet GENITOURINARY: Continues to void INTEGUMENTARY: Skin is warm and dry with evidence of good perfusion. Thoracic incision well approximated and covered with dry intact dressing. NEUROLOGIC: Cranial nerves II through XII intact MUSKULOSKELETAL: Able to move all extremities, strength equal bilaterally PSYCHIATRIC: Alert and oriented to person place and time, appropriate affect, intact judgment and insight - Allied health notes Allied health notes reviewed: nursing - Labs CBC & Chem 7: 02/07/22 03:33 02/07/22 03:33 - Imaging and Cardiology Chest x-ray: image reviewed Assessment and Plan Assessment: 1. 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 Acute hypoxic respiratory failure, currently on 2 L nasal cannula 3. Current tobacco dependence, smokes 1 pk/day x 44 years 4. COPD, FEV1 90% with DLCO 30% 5. Marijuana use 6. History of coronary artery disease with myocardial infarction status post drug-eluting stent to the LAD and June 2014 7. History of hypertension, treated 8. Hyperlipidemia, treated 9. Family history of premature coronary artery disease Plan: 1. Chest x-ray stable this morning 2. Check oxygen saturation with ambulation on room air. If below 88% will send patient home with oxygen. Encourage incentive spirometry is 10 times every hour while awake. Bronchodilators per pulmonology 3. Increase activity, ambulate as tolerated 4. GI/DVT prophylaxis 5. Final pathology pending, will follow 6. Pain control with current medication regimen 7. Continue midodrine 8. Smoking cessation counseling provided, will provide community resources upon discharge. Patient denies need for smoking cessation medications 9. Discharge planning in progress. Anticipate discharge to home today. Follow -up appointments have been made Note: Home oxygen test performed by RN, at rest oxygen saturation is 88%, with ambulation patient's oxygen saturation drops to 84%, patient will need home oxygen set up with diagnosis COPD.
[2022-02-08] MEDS: IPRATROPIUM-ALBUTEROL 3 ML NEB IH SCH ×2 (08:15→11:30)
[2022-02-08 08:21] VITALS: BP 103/67
[2022-02-08 08:27] VITALS: RESP 18
--- NOTE | 2022-02-08 08:31 | XR ---
EXAMINATION TYPE: XR chest 1V portable DATE OF EXAM: 02/08/2022 HISTORY: Shortness of breath. COMPARISON: 02/07/2022 TECHNIQUE: Single view of the chest is submitted. FINDINGS: Right apical pneumothorax is slightly smaller in size and measures 1.1 cm versus 1.3 cm previously. H ydropneumothorax seen at the right lung base with fluid level noted. Right-sided chest tube has been removed. Hyperinflation of the left lung. Prominence of the pulmonary interstitium persists. The heart is stable. Hilar and mediastinal structures are within normal limits. Degenerative changes are seen of the dorsal spine. IMPRESSION: 1. Right apical pneumothorax is slightly smaller in size. Right basilar hydropneumothorax component persists. Right-sided chest tube has been removed.
[2022-02-08] MEDS: MIDODRINE 5 MG TAB PO SCH (08:50)
[2022-02-08] MEDS: METOPROLOL TARTRATE 12.5 MG TAB PO SCH (08:50)
[2022-02-08] MEDS: HEPARIN SODIUM,PORCINE/PF 5,000 UNIT/0.5 ML SYRINGE SQ SCH (08:50)
[2022-02-08] MEDS: PANTOPRAZOLE 40 MG TABLET PO SCH (08:51)
--- NOTE | 2022-02-08 10:30 | P.DS ---
Providers Date of admission: 02/04/22 05:52 Expected date of discharge: 02/08/22 Attending physician: Andrew Drew MD Consults: 02/04/22 15:03 Consult Physician Routine Consulting Provider: Lisa Barnes Consult Reason/Comments: known to you, post op lobectomy Do you want consulting provider notified?: Already Contacted Primary care physician: Alethea Dior [facility] Course: FINAL DIAGNOSIS: 1. 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 Acute hypoxic respiratory failure 3. Current tobacco dependence 4. COPD, FEV1 90% with DLCO 30% 5. Marijuana use 6. History of coronary artery disease, myocardial infarction, status post drug- eluting stent to the LAD in June 2014 7. History of hypertension, treated 8. Hyperlipidemia, treated 9. Family history of premature coronary artery disease PRINCIPAL PROCEDURE: 1. Bronchoscopy 2. Right video-assisted thoracoscopic surgery converted to open with anterolateral thoracotomy 3. Right lower lobe wedge resection of the lung nodule with subsequent right lower lobectomy 4. Mediastinal lymph node dissection 5. Intercostal nerve blocks at 3 levels HISTORY OF PRESENT ILLNESS: This is a 61-year-old male who follows an outpatient basis with Dr Giacomo Patiño. He had undergone low-dose chest CT back which showed 2 right lower lobe nodules. Subsequently he underwent PET/CT which demonstrated suspicious hypermetabolic uptake in the larger posterior right basilar nodule worrisome for neoplasm. The patient was referred to Dr. Drew from cardiothoracic surgery. Initially he was recommended to undergo EBUS with potential navigational bronchoscopy and biopsy with Dr. Barnes. Unfortunately the samples were nondiagnostic and he was subsequently recommended to undergo right video-assisted thoracoscopic wedge resection with subsequent lobectomy if frozenn section was positive for carcinoma. The usual perioperative course was discussed in detail with the patient, all risks and benefits were explained, all questions were answered, and consent was obtained to proceed with surgery. The patient was scheduled for surgery at the earliest possible date after obtaining cardiac clearance. HOSPITAL COURSE: The patient was brought to the hospital on 02/04/22, taken to the preoperative area, prepared in the usual fashion, and subsequently taken to the operating room where Dr. Drew initially performed a right VATS for wedge resection of the right lower lobe nodule, frozen section was positive for carcinoma and subsequent right lower lobectomy was performed through a converted thoracotomy approach. Upon completion of surgery the patient was extubated and taken to the recovery room for further hemodynamic monitoring. He was eventually admitted to the intensive care unit. He did have some hypotension requiring initiation of midodrine. Chest x-rays remained stable, he did have a small intermittent air leak on postop day #1 which resolved quickly and his chest tube was placed to waterseal. He had no air leak and chest x-ray was stable on postoperative day #3, subsequently the chest tube was discontinued without incident. He was transferred to medical surgical unit for further monitoring and rehabilitation. Follow-up chest x-ray was stable. His oxygen was titrated down although he was to be discharged on 2 LPM NC, he was tolerating oral diet, his pain was controlled, and he was ready to be discharged to home on postoperative day #4. He received written and verbal instruction regarding his medications, activity restrictions, signs and symptoms requiring physician notification, and follow-up appointments. Patient Condition at Discharge: Stable Plan - Discharge Summary Discharge Rx Participant: Yes New Discharge Prescriptions: New Midodrine [ProAmatine] 10 mg PO AC-TID #90 tab Acetaminophen Tab [Tylenol] 1,000 mg PO Q6HR PRN tab PRN Reason: Fever And/ Or Pain Continue Aspirin 325 mg PO HS Atorvastatin [Lipitor] 80 mg PO HS #90 tab Nitroglycerin Sl Tabs [Nitrostat] 0.4 mg SUBLINGUAL Q5M PRN #25 tab PRN Reason: Chest Pain Fluticasone/Umeclidin/Vilanter [Trelegy Ellipta 100-62.5-25] 1 inhalation INHALATION HS Changed Metoprolol Tartrate [Lopressor] 12.5 mg PO BID #180 Discharge Medication List Aspirin 325 mg PO HS 07/02/14 [History] Atorvastatin [Lipitor] 80 mg PO HS #90 tab 07/03/14 [Rx] Nitroglycerin Sl Tabs [Nitrostat] 0.4 mg SUBLINGUAL Q5M PRN #25 tab 07/03/14 [Rx] Fluticasone/Umeclidin/Vilanter [Trelegy Ellipta 100-62.5-25] 1 inhalation IN HALATION HS 02/02/22 [History] Acetaminophen Tab [Tylenol] 1,000 mg PO Q6HR PRN tab 02/08/22 [Rx] Metoprolol Tartrate [Lopressor] 12.5 mg PO BID #180 02/08/22 [Rx] Midodrine [ProAmatine] 10 mg PO AC-TID #90 tab 02/08/22 [Rx] Follow up Appointment(s)/Referral(s): [facility] [NON-STAFF] - As Needed (oxygen) Alethea Dior MD [Primary Care Provider] - As Needed Andrew Drew MD [STAFF PHYSICIAN] - 02/15/22 1:15 pm Lisa Barnes MD [STAFF PHYSICIAN] - 02/22/22 8:30 am Activity/Diet/Wound Care/Special Instructions: DISCHARGE INSTRUCTIONS: 1. No driving for 2 weeks, or until physician gives their ok. 2. No lifting, pushing, or pulling more than 10 pounds for 2 weeks. The physician will advise of any restriction changes. 3. Continue pain control per as needed orders. Alternate acetaminophen (Tylenol) and ibuprofen (Motrin/Advil) for pain. 4. Continue with incentive spirometry and splinting until otherwise directed by the physician. 5. Leave chest tube dressing for 48 hours. After that, remove all dressings and shower daily. 6. Routine incision care. No powders, lotions, ointments on incisions. 7. Please call surgeon/[employer]PER[employer]OR for temp greater than 101 F or purulent drainage from incisions. Discharge Disposition: HOME SELF-CARE
[2022-02-08 11:21] LABS: African American GFR (CKD) 117.2 (60.0-200.0); Anion Gap 8.6 mmol/L (10.00-18.00); Blood Urea Nitrogen 14.7 mg/dL (9.0-27.0); Calcium 8.2 mg/dL (8.7-10.3); Carbon Dioxide 24.4 mmol/L (20.0-27.5); Non-African American GFR(CKD) 101.1 (60.0-200.0)
[2022-02-08 11:52] VITALS: PULSE 99
--- NOTE | 2022-02-08 13:07 | P.PN ---
Subjective Progress Note Date: 02/08/22 02/06/2022, the patient is awake and alert and sitting up on a chair. He is tender spirometer and is pulling approximately 2000. His chest x-ray shows no evidence of any pneumothorax. The right-sided chest tube is still in place and there is no evidence of any significant air leak. Total amount of output since the patient arrived from the operating room is in the order of 900 mL. Pain is under adequate control. The patient underwent a thoracotomy. Hemodynamically stable. No significant hypotension. Blood work from today shows a white cell count of 8.7 with hemoglobin of 10.6. Sodium is at 133, BUN is at 15 with a creatinine of 0.7. No other significant events otherwise for now. Chest tube will be kept for another 24 hours and this will be pulled out tomorrow. He is currently on 2 L and he can possibly be weaned down to room air oxygen. Reevaluated today on 02/07/2022, patient remains in the ICU, doing well, his chest tube has been removed, he is on 2 L nasal cannula, he is hemodynamically stable, not in any distress, his other fluids at KVO. Labs are basically unremarkable. WBC count is 9.9 hemoglobin is 10.7. Electrolytes and renal profile are normal. Patient could be transferred to medical surgical floor with telemetry The patient is seen today 7 2021 in follow-up on the regular medical floor. He is currently sitting up at the bedside. Awake and alert in no acute distress. No worsening shortness of breath, cough or congestion. Maintaining O2 saturations in the 90s on room air. Sodium 135. Potassium 4.0. BUN 15. Creatinine 0.7. Glucose 90. He continues well with the incentive spirometer. He remains on bronchodilators. Pain is well controlled. Chest x-ray reveals a 1.1 cm right apical pneumothorax improved compared to previous. Right basilar hydropneumothorax component persists. Pathology pending. Objective - Vital Signs Vital signs: Vital Signs Temp 97.6 F 02/08/22 08:00 Pulse 99 02/08/22 11:41 Resp 18 02/08/22 08:26 BP 103/67 02/08/22 08:00 Pulse Ox 92 L 02/08/22 08:16 FiO2 Intake & Output 02/07/22 02/08/22 02/08/22 18:59 06:59 18:59 Intake Total 480 480 Output Total 1400 Balance -1400 480 480 Intake: Oral 480 480 Output: Urine 1400 Other: Voiding Method Urinal # Voids 1 ABP, PAP, CO, CI - Last Documented Arterial Blood Pressure 85/40 - Exam CONSTITUTIONAL: Appears comfortable, cooperative, no acute distress RESPIRATORY: Lungs sounds diminished bilaterally. Respirations even, nonlabored. Currently on room air. Able to achieve 2000 mL on incentive spirometry. Strong cough. CARDIOVASCULAR: S1, S2 present. Regular rate and rhythm, sinus rhythm on telemetry. Palpable peripheral pulses bilaterally. No edema present. No calf pain or tenderness noted. SCDs present. GASTROINTESTINAL: Abdomen soft, nontender, nondistended. Active bowel sounds present 4 quadrants. Tolerating diet GENITOURINARY: Continues to void INTEGUMENTARY: Skin is warm and dry with evidence of good perfusion. Thoracic incision well approximated and covered with dry intact dressing. NEUROLOGIC: Cranial nerves II through XII intact MUSKULOSKELETAL: Able to move all extremities, strength equal bilaterally PSYCHIATRIC: Alert and oriented to person place and time, appropriate affect, intact judgment and insight INVASIVE LINES AND TUBES: Right pleural chest tube removed previously - Labs CBC & Chem 7: 02/07/22 03:33 02/08/22 07:00 Labs: Abnormal Lab Results - Last 24 Hours (Table) 02/08/22 Range/Units 07:00 Anion Gap 8.60 L (10.00-18.00) mmol/L BUN/Creatinine Ratio 21.00 H (12.00-20.00) Ratio Calcium 8.2 L (8.7-10.3) mg/dL Assessment and Plan Assessment: Right lower lobe mass 3.5 cm along with mediastinal lymphadenopathy. Previous bronchoscopy and EBUS sampling of the distal lymph nodes were nondiagnostic. The patient underwent a lesion wedge resection of the right lower lobe followed by a completion right lower lobectomy and mediastinal lymph node sampling. This was initially started with a thoracoscopic approach and following that the patient underwent open anterolateral thoracotomy. Currently postop day #4. Acute hypoxic history failure currently on room air COPD with impairment in diffusion capacity, preserved FEV1 based on the preop pulmonary function tests Chronic smoker Known history of coronary artery disease History of non-ST segment elevation myocardial infarction June 2014 Hypertension Hyperlipidemia Plan: The patient was seen and evaluated Currently stable and on room air Will be checked for possible home oxygen Plan is for discharge today Continue with the incentive spirometer Follow up in the office in 1 week I have personally seen and examined the patient, performed the documentation and the assessment and plan as written. Number of minutes spent on the visit: 10.
== END 2022-02-08 12:52 | disposition home or self-care (01) | DRG 163 ==
LOC: 2ORMAIN 05:52 → 2SICU 15:18 → 4SSUR 02-07 17:54
PROVIDERS: ADMIT Thoracic Surgery (Cardiothoracic Vascular Surgery); ATTEND Thoracic Surgery (Cardiothoracic Vascular Surgery)
PROC: 0BJ08ZZ Inspection of Tracheobronchial Tree, Via Natural or Artificial Opening Endoscopic (ICD-10-PCS; 2022-02-04)
PROC: 3E0T3BZ Introduction of Anesthetic Agent into Peripheral Nerves and Plexi, Percutaneous Approach (ICD-10-PCS; 2022-02-04)
PROC: 30233N1 Transfusion of Nonautologous Red Blood Cells into Peripheral Vein, Percutaneous Approach (ICD-10-PCS; 2022-02-04)
PROC: 0BTF0ZZ Resection of Right Lower Lung Lobe, Open Approach (ICD-10-PCS; principal; 2022-02-04 07:30)
PROC: 07T70ZZ Resection of Thorax Lymphatic, Open Approach (ICD-10-PCS; 2022-02-04 07:30)
PROC: 5A0945A Assistance with Respiratory Ventilation, 24-96 Consecutive Hours, High Flow/Velocity Cannula (ICD-10-PCS; 2022-02-05)
PROC: 3E033XZ Introduction of Vasopressor into Peripheral Vein, Percutaneous Approach (ICD-10-PCS; 2022-02-06)
DX: C34.31 Malignant neoplasm of lower lobe, right bronchus or lung (principal); J96.01 Acute respiratory failure with hypoxia; J94.8 Other specified pleural conditions; J93.82 Other air leak; I10 Essential (primary) hypertension; J43.9 Emphysema, unspecified; I95.9 Hypotension, unspecified; F17.210 Nicotine dependence, cigarettes, uncomplicated; I25.10 Atherosclerotic heart disease of native coronary artery without angina pectoris; E78.5 Hyperlipidemia, unspecified; I25.5 Ischemic cardiomyopathy; Z53.32 Thoracoscopic surgical procedure converted to open procedure; Z79.899 Other long term (current) drug therapy; Z79.82 Long term (current) use of aspirin; I25.2 Old myocardial infarction; Z95.5 Presence of coronary angioplasty implant and graft; Z82.49 Family history of ischemic heart disease and other diseases of the circulatory system
CPT/HCPCS: 64999; 71045; 71046; 80048; 80053; 82805; 85025; 85027; 85610; 85730; 86850; 86900; 86901; 86920; 88305; 88307; 88309; 88313; 88331; 88341; 88342; 94640; 94760

== ENCOUNTER 2022-02-21 04:55 | Inpatient (IN) | payer OTHER ==
[2022-02-21] MEDS ORDERED: IPRATROPIUM-ALBUTEROL 3 ML NEB INHALATION STA ×2 (05:08→06:39)
--- NOTE | 2022-02-21 05:09 | ED ---
SOB HPI - General Chief Complaint: Shortness of Breath Stated Complaint: Difficulty Breathing, Post Lung Surgery Time Seen by Provider: 02/21/22 05:08 Source: patient, RN notes reviewed, old records reviewed, Caregiver Mode of arrival: wheelchair Limitations: no limitations - History of Present Illness Initial Comments: This is a 61-year-old male to the emergency department for evaluation. Patient suffers from severe also severe COPD coming in for COPD exacerbation today. Positive nausea significant exertional shortness of breath and dyspnea. Pos itive chest pain MD Complaint: shortness of breath, cough, pain with inspiration, anxiety -: days(s) Severity: moderate, severe Severity scale (1-10): 10 Quality: crushing Consistency: constant Improves With: nothing Known History Of: COPD Context: recent URI Associated Symptoms: chest pain, cough Treatments Prior to Arrival: none, oxygen - Related Data Home Medications Medication Instructions Recorded Confirmed Aspirin 325 mg PO HS 07/02/14 02/02/22 Fluticasone/Umeclidin/Vilanter 1 inhalation INHALATION HS 02/02/22 02/04/22 [Trelegy Ellipta 100-62.5-25] Previous Rx's Medication Instructions Recorded Atorvastatin [Lipitor] 80 mg PO HS #90 tab 07/03/14 Nitroglycerin Sl Tabs [Nitrostat] 0.4 mg SUBLINGUAL Q5M PRN #25 tab 07/03/14 Acetaminophen Tab [Tylenol] 1,000 mg PO Q6HR PRN tab 02/08/22 Metoprolol Tartrate [Lopressor] 12.5 mg PO BID #180 02/08/22 Midodrine [ProAmatine] 10 mg PO AC-TID #90 tab 02/08/22 Allergies Allergy/AdvReac Type Severity Reaction Status Date / Time No Known Allergies Allergy Verified 02/21/22 05:00 Review of Systems ROS Statement: Those systems with pertinent positive or pertinent negative responses have been documented in the HPI. ROS Other: All systems not noted in ROS Statement are negative. Past Medical History Past Medical History: Coronary Artery Disease (CAD), GERD/Reflux, Hyperlipidemia, Hypertension, Myocardial Infarction (AL) Additional Past Medical History / Comment(s): PET SCAN ON 08/27/21 SHOWS RIGHT BASILAR LUNG NODULE. ( NSTEMI 2-18-15), KIDNEY STONES. RT INGUINAL HERNIA, emphysema Last Myocardial Infarction Date:: DATE UNKNOWN History of Any Multi-Drug Resistant Organisms: None Reported Past Surgical History: Appendectomy, Heart Catheterization With Stent, Tonsillectomy Additional Past Surgical History / Comment(s): 1989 HAD POLYP REMOVED FROM THROAT-BENIGN, 07-02-14 STENT TO LAS, recent aide. bronchoscopy Past Anesthesia/Blood Transfusion Reactions: No Reported Reaction Date of Last Stent Placement:: 07-02-14 Past Psychological History: No Psychological Hx Reported Smoking Status: Current every day smoker - Past Family History Father Family Medical History: Myocardial Infarction (AL) Additional Family Medical History / Comment(s): from massive mi age 42 Mother Family Medical History: Unable to Obtain General Exam Limitations: no limitations General appearance: alert, in no apparent distress Head exam: Present: atraumatic, normocephalic, normal inspection Eye exam: Present: normal appearance, PERRL, EOMI. Absent: scleral icterus, conjunctival injection, periorbital swelling ENT exam: Present: normal exam, mucous membranes moist Neck exam: Present: normal inspection. Absent: tenderness, meningismus, lym phadenopathy Respiratory exam: Present: respiratory distress, wheezes, decreased breath sounds, prolonged expiratory. Absent: rales, rhonchi, stridor Cardiovascular Exam: Present: normal rhythm, tachycardia, normal heart sounds. Absent: systolic murmur, diastolic murmur, rubs, gallop, clicks GI/Abdominal exam: Present: soft, normal bowel sounds. Absent: distended, tenderness, guarding, rebound, rigid Extremities exam: Present: normal inspection, full ROM, normal capillary refill. Absent: tenderness, pedal edema, joint swelling, calf tenderness Back exam: Present: normal inspection Neurological exam: Present: alert, oriented X3, CN II-XII intact Psychiatric exam: Present: normal affect, normal mood Skin exam: Present: warm, dry, intact, normal color. Absent: rash Course Vital Signs 02/21/22 02/21/22 02/21/22 05:00 05:07 05:16 Temperature 97.5 F L Pulse Rate 114 H 104 H Respiratory 16 Rate Blood Pressure 121/74 O2 Sat by Pulse 88 L 88 L Oximetry 02/21/22 02/21/22 05:26 05:35 Temperature Pulse Rate 106 H Respiratory 18 Rate Blood Pressure O2 Sat by Pulse Oximetry - Reevaluation(s) Reevaluation #1: 02/21/22 06:46 Medical record is reviewed Reevaluation #2: 02/21/22 06:46 Patient has no real improvement here in the ER still with chest pain shortness of breath Reevaluation #3: 02/21/22 06:46 Patient informed results and questions answered - Consultations Consultation #1: Spoke with PMH were greatly admit the patient Medical Decision Making - Medical Decision Making 61 male to the emergency room for evaluation shortness with cough and congestion. Patient persistent chest pain here in the ER. Patient having severe COPD exacerbation hypoxia PE and right-sided pleural effusion [facility] for further evaluation and management - Lab Data Result diagrams: 02/21/22 05:29 02/21/22 05:29 Lab Results 02/21/22 02/21/22 02/21/22 Range/Units 05:29 05:29 05:29 WBC 12.4 H (3.8-10.6) k/uL RBC 3.90 L (4.30-5.90) m/uL Hgb 12.6 L (13.0-17.5) gm/dL Hct 37.5 L (39.0-53.0) % MCV 96.2 (80.0-100.0) fL MCH 32.4 (25.0-35.0) pg MCHC 33.6 (31.0-37.0) g/dL RDW 14.0 (11.5-15.5) % Plt Count 378 D (150-450) k/uL MPV 7.8 Neutrophils % 82 % Lymphocytes % 8 % Monocytes % 7 % Eosinophils % 2 % Basophils % 1 % Neutrophils # 10.1 H (1.3-7.7) k/uL Lymphocytes # 1.0 (1.0-4.8) k/uL Monocytes # 0.9 (0-1.0) k/uL Eosinophils # 0.2 (0-0.7) k/uL Basophils # 0.1 (0-0.2) k/uL Hypochromasia Moderate PT 10.7 (9.0-12.0) sec INR 1.0 (<1.2) APTT 27.2 (22.0-30.0) sec D-Dimer 4.91 H (<0.60) mg/L FEU Sodium 134 L (137-145) mmol/L Potassium 4.8 (3.5-5.1) mmol/L Chloride 99 (98-107) mmol/L Carbon Dioxide 23 (22-30) mmol/L Anion Gap 12 mmol/L BUN 16 (9-20) mg/dL Creatinine 0.65 L (0.66-1.25) mg/dL Est GFR (CKD-EPI)AfAm >90 (>60 ml/min/1.73 sqM) Est GFR (CKD-EPI)NonAf >90 (>60 ml/min/1.73 sqM) Glucose 120 H (74-99) mg/dL Calcium 8.4 (8.4-10.2) mg/dL Total Bilirubin 0.9 (0.2-1.3) mg/dL AST 56 (17-59) U/L ALT 64 H (4-49) U/L Alkaline Phosphatase 194 H (38-126) U/L Troponin I (0.000-0.034) ng/mL NT-Pro-B Natriuret Pep pg/mL Total Protein 6.2 L (6.3-8.2) g/dL Albumin 3.4 L (3.5-5.0) g/dL 02/21/22 02/21/22 Range/Units 05:29 05:29 WBC (3.8-10.6) k/uL RBC (4.30-5.90) m/uL Hgb (13.0-17.5) gm/dL Hct (39.0-53.0) % MCV (80.0-100.0) fL MCH (25.0-35.0) pg MCHC (31.0-37.0) g/dL RDW (11.5-15.5) % Plt Count (150-450) k/uL MPV Neutrophils % % Lymphocytes % % Monocytes % % Eosinophils % % Basophils % % Neutrophils # (1.3-7.7) k/uL Lymphocytes # (1.0-4.8) k/uL Monocytes # (0-1.0) k/uL Eosinophils # (0-0.7) k/uL Basophils # (0-0.2) k/uL Hypochromasia PT (9.0-12.0) sec INR (<1.2) APTT (22.0-30.0) sec D-Dimer (<0.60) mg/L FEU Sodium (137-145) mmol/L Potassium (3.5-5.1) mmol/L Chloride (98-107) mmol/L Carbon Dioxide (22-30) mmol/L Anion Gap mmol/L BUN (9-20) mg/dL Creatinine (0.66-1.25) mg/dL Est GFR (CKD-EPI)AfAm (>60 ml/min/1.73 sqM) Est GFR (CKD-EPI)NonAf (>60 ml/min/1.73 sqM) Glucose (74-99) mg/dL Calcium (8.4-10.2) mg/dL Total Bilirubin (0.2-1.3) mg/dL AST (17-59) U/L ALT (4-49) U/L Alkaline Phosphatase (38-126) U/L Troponin I <0.012 (0.000-0.034) ng/mL NT-Pro-B Natriuret Pep 513 pg/mL Total Protein (6.3-8.2) g/dL Albumin (3.5-5.0) g/dL - EKG Data -: EKG Interpreted by Me (EKG is sinus tachycardia 102 IA 125 QRS 84 QTC 400) - Radiology Data Radiology results: report reviewed (Chest x-ray CT chest positive for PE, significant right-sided pleural effusion possible pneumonia), image reviewed Critical Care Time Critical Care Time: Yes Total Critical Care Time: 31 Disposition Clinical Impression: Acute pulmonary edema, Community acquired pneumonia, Acute exacerbation of chronic obstructive pulmonary disease, Mass of lower lobe of right lung, Mediast inal lymphadenopathy, Pleural effusion, right, Right pulmonary embolus Disposition: ADMITTED IP TO THIS HOSP Condition: Fair Is patient prescribed a controlled substance at d/c from ED?: No Referrals: Alethea Dior MD [Primary Care Provider] - 1-2 days Time of Disposition: 06:45
--- NOTE | 2022-02-21 05:26 | XR ---
EXAMINATION TYPE: XR chest 1V portable DATE OF EXAM: 02/21/2022 COMPARISON: 02/08/2022 HISTORY: Short of breath TECHNIQUE: FINDINGS: There is some airspace consolidation right lower lobe. There is 50% opacification right hem ithorax. There is coarse interstitial infiltrate throughout the left lower lobe. Heart size is probab ly normal. No obvious heart failure. Bony thorax is intact IMPRESSION: Increasing right lower lobe pneumonia and right pleural effusion compared to old exam. No obvious heart failure.
[2022-02-21 05:59] LABS: Basophils # (A) 0.1 k/uL (0-0.2); Basophils % (A) 1 %; Eosinophils # (A) 0.2 k/uL (0-0.7); Eosinophils % (A) 2 %; HCT 37.5 % (39.0-53.0); HGB 12.6 gm/dL (13.0-17.5); Hypochromasia Moderate; Lymphocytes % (A) 8 %; MCH 32.4 pg (25.0-35.0); MCHC 33.6 g/dL (31.0-37.0); MCV 96.2 fL (80.0-100.0); Mean Platelet Volume 7.8; Monocytes # (A) 0.9 k/uL (0-1.0); Monocytes % (A) 7 %; Neutrophils # (A) 10.1 k/uL (1.3-7.7); Neutrophils % (A) 82 %; WBC 12.4 k/uL (3.8-10.6)
[2022-02-21 06:02] LABS: Platelet Count 378 k/uL (150-450)
[2022-02-21 06:18] LABS: Partial Thromboplastin Time 27.2 sec (22.0-30.0); Prothrombin Time 10.7 sec (9.0-12.0)
[2022-02-21 06:21] LABS: ALT 64 U/L (4-49); AST 56 U/L (17-59); African American GFR (CKD) >90 (>60 ml/min/1.73 sqM); Albumin 3.4 g/dL (3.5-5.0); Alkaline Phosphatase 194 U/L (38-126); Anion Gap 12 mmol/L; Blood Urea Nitrogen 16 mg/dL (9-20); Calcium 8.4 mg/dL (8.4-10.2); Carbon Dioxide 23 mmol/L (22-30); Chloride 99 mmol/L (98-107); Glucose 120 mg/dL (74-99); Non-African American GFR(CKD) >90 (>60 ml/min/1.73 sqM); Potassium 4.8 mmol/L (3.5-5.1); Sodium 134 mmol/L (137-145); Total Bilirubin 0.9 mg/dL (0.2-1.3); Total Protein 6.2 g/dL (6.3-8.2)
--- NOTE | 2022-02-21 06:21 | CT ---
EXAMINATION TYPE: CT angio chest DATE OF EXAM: 02/21/2022 COMPARISON: None HISTORY: SOB CT DLP: 372 mGycm Automated exposure control for dose reduction was used. CONTRAST: Performed with IV Contrast, patient injected with 100 mL of Isovue 370. Images obtained from the thoracic inlet through diaphragm with the IV contrast. There are Three-D pos tprocessed images. There is extensive bullous pulmonary emphysema. There is large right pleural effusion. There is some atelectasis right lower lobe. There is mediastinal and bronchial enlarged lymph nodes up to 2.5 cm. There are multiple filling defects in the right upper lobe and right lower lobe pulmonary artery. The thoracic aorta is atheromatous. No dissection. Heart size is normal. No pericardial effusion. There is apparent right lower lobectomy with a stump of the right lower lobe pulmonary artery seen distally . IMPRESSION: Multiple pulmonary emboli in the right upper lobe and right lower lobe pulmonary artery. Normal right heart size. No evidence of right heart strain. Extensive bullous emphysema. Large loculated right pleural effusion. Mediastinal and bronchial adenop athy. Right pleural effusion is essentially new compared to chest CT scan 01/11/2022. This exam was discussed with emergency room attending staff at 6:15 AM.
[2022-02-21] MEDS ORDERED: NALOXONE 0.4 MG/ML 1 ML VIAL IV PRN (06:39)
[2022-02-21] MEDS ORDERED: HEPARIN SODIUM 1,000 UN/ML (10ML VL) IV ONE (06:39)
[2022-02-21] MEDS ORDERED: ALBUTEROL NEBULIZED 2.5 MG/3 ML INHALATION PRN (06:39)
[2022-02-21] MEDS ORDERED: HEPARIN SODIUM 1,000 UN/ML (10ML VL) IV PRN (06:39)
[2022-02-21] MEDS: HEPARIN SOD,PORK IN 0.45% NACL 25,000 UNIT in 0.45% NACL 1 250ML.BAG IV SCH ×2 (06:52→22:43)
[2022-02-21] MEDS ORDERED: AZITHROMYCIN 500 MG in SODIUM CHLORIDE 0.9% 250 ML IVPB STA (06:54)
[2022-02-21] MEDS: PANTOPRAZOLE 40 MG/10 ML VIAL IV SCH (09:05)
--- NOTE | 2022-02-21 09:13 | P.GSCN ---
History of Present Illness Consult date: 02/21/22 Reason for Consult: Pulmonary embolism Requesting physician: Jorge Talamantes History of present illness: This is a pleasant 61-year-old male with a past medical history of coronary artery disease, tobacco dependence for over 50 years, 1 PPD, hyperlipidemia, and recent diagnosis of small cell and squamous cell carcinoma. Patient recently underwent a right lung wedge resection and right lower lobe lobectomy on 02/04/2022 with discharge on 02/08/2022. He has not yet established with oncology. He came into the emergency department for increased shortness of breath with exertion and right chest pain. States that he can only walk a couple steps without having to rest, needing home oxygen when up and walking. He was noted to be hypoxic on admission with an oxygen level of 88% on room air. He is now on 3 L nasal cannula. Labs were positive for an elevated d-dimer of 4.9. He had a CTA chest that reported multiple pulmonary emboli in the right upper lobe and right lower lobe pulmonary artery. Normal right heart size. No evidence of right heart strain. There is extensive bullous emphysema, large loculated right pleural effusion. Mediastinal and bronchial adenopathy. Right pleural effusion essentially new compared to chest CT 01/11/2022. He is currently sitting up at the bedside. States he does still continue to have right chest sided pain, no shortness of breath while sitting. Denies any fevers or chills, no abdominal pain, nausea or vomiting. Labs: WBC 12.4 hemoglobin 12.6 hematocrit 37 platelet count 378,000 PT 10.7 INR 1.0 d-dimer 4.9 sodium 134 potassium 4.8 BUN 16 creatinine 0.65 glucose 120, total bilirubin 0.9 a L2 64 alk phos 194 troponin less than 0.012 Review of Systems A 14 point review systems was completed all pertinent positives and negatives as stated in the HPI. Past Medical History Past Medical History: Coronary Artery Disease (CAD), GERD/Reflux, Hyperlipidem ia, Hypertension, Myocardial Infarction (CT) Additional Past Medical History / Comment(s): PET SCAN ON 08/27/21 SHOWS RIGHT BASILAR LUNG NODULE. ( NSTEMI 2-18-15), KIDNEY STONES. RT INGUINAL HERNIA, emphysema Last Myocardial Infarction Date:: DATE UNKNOWN History of Any Multi-Drug Resistant Organisms: None Reported Past Surgical History: Appendectomy, Heart Catheterization With Stent, Tonsillectomy Additional Past Surgical History / Comment(s): 1989 HAD POLYP REMOVED FROM THROAT-BENIGN, 07-02-14 STENT TO LAS, recent aide. bronchoscopy Past Anesthesia/Blood Transfusion Reactions: No Reported Reaction Date of Last Stent Placement:: 07-02-14 Past Psychological History: No Psychological Hx Reported Smoking Status: Current every day smoker - Past Family History Father Family Medical History: Myocardial Infarction (CT) Additional Family Medical History / Comment(s): from massive mi age 42 Mother Family Medical History: Unable to Obtain Medications and Allergies Home Medications Medication Instructions Recorded Confirmed Type Aspirin 325 mg PO HS 07/02/14 02/21/22 History Atorvastatin [Lipitor] 80 mg PO HS #90 tab 07/03/14 02/21/22 Rx Nitroglycerin Sl Tabs [Nitrostat] 0.4 mg SUBLINGUAL Q5M PRN #25 tab 07/03/14 02/21/22 Rx Fluticasone/Umeclidin/Vilanter 1 puff INHALATION RT-HS 02/02/22 02/21/22 History [Trelegy Ellipta 100-62.5-25] Acetaminophen Tab [Tylenol] 1,000 mg PO Q6HR PRN tab 02/08/22 02/21/22 Rx Metoprolol Tartrate [Lopressor] 12.5 mg PO BID #180 02/08/22 02/21/22 Rx Midodrine [ProAmatine] 10 mg PO AC-TID #90 tab 02/08/22 02/21/22 Rx Protandim Life Advantage 2 cap PO DAILY 02/21/22 02/21/22 History Allergies Allergy/AdvReac Type Severity Reaction Status Date / Time No Known Allergies Allergy Verified 02/21/22 07:42 Surgical - Exam Vital Signs Temp Pulse Resp BP Pulse Ox 97.5 F L 114 H 16 121/74 88 L 02/21/22 05:00 02/21/22 05:00 02/21/22 05:00 02/21/22 05:00 02/21/22 05:00 General appearance: The patient is alert, oriented, appears in no acute distress. HET: Head is normocephalic and atraumatic. Neck: Supple. Trachea midline. No audible carotid bruit. Heart: S1 S2. Regular rate and rhythm. Tachycardic. Lungs: Clear to auscultation bilaterally. Diminished on the right. Abdomen: Soft, nontender, nondistended. Extremities: Normal skin color and turgor. No cyanosis, rash, ulceration, clubbing, or edema. Neurological: No focal deficits. Alert and oriented. Results - Labs 02/21/22 05:29 02/21/22 05:29 Abnormal Lab Results - Last 24 Hours (Table) 02/21/22 02/21/22 02/21/22 Range/Units 05:29 05:29 05:29 WBC 12.4 H (3.8-10.6) k/uL RBC 3.90 L (4.30-5.90) m/uL Hgb 12.6 L (13.0-17.5) gm/dL Hct 37.5 L (39.0-53.0) % Neutrophils # 10.1 H (1.3-7.7) k/uL D-Dimer 4.91 H (<0.60) mg/L FEU Sodium 134 L (137-145) mmol/L Creatinine 0.65 L (0.66-1.25) mg/dL Glucose 120 H (74-99) mg/dL ALT 64 H (4-49) U/L Alkaline Phosphatase 194 H (38-126) U/L Total Protein 6.2 L (6.3-8.2) g/dL Albumin 3.4 L (3.5-5.0) g/dL Diabetes panel 02/21/22 Range/Units 05:29 Sodium 134 L (137-145) mmol/L Potassium 4.8 (3.5-5.1) mmol/L Chloride 99 (98-107) mmol/L Carbon Dioxide 23 (22-30) mmol/L BUN 16 (9-20) mg/dL Creatinine 0.65 L (0.66-1.25) mg/dL Glucose 120 H (74-99) mg/dL Calcium 8.4 (8.4-10.2) mg/dL AST 56 (17-59) U/L ALT 64 H (4-49) U/L Alkaline Phosphatase 194 H (38-126) U/L Total Protein 6.2 L (6.3-8.2) g/dL Albumin 3.4 L (3.5-5.0) g/dL Calcium panel 10/10/22 Range/Units 05:29 Calcium 8.4 (8.4-10.2) mg/dL Albumin 3.4 L (3.5-5.0) g/dL Pituitary panel 02/21/22 Range/Units 05:29 Sodium 134 L (137-145) mmol/L Potassium 4.8 (3.5-5.1) mmol/L Chloride 99 (98-107) mmol/L Carbon Dioxide 23 (22-30) mmol/L BUN 16 (9-20) mg/dL Creatinine 0.65 L (0.66-1.25) mg/dL Glucose 120 H (74-99) mg/dL Calcium 8.4 (8.4-10.2) mg/dL Adrenal panel 02/21/22 Range/Units 05:29 Sodium 134 L (137-145) mmol/L Potassium 4.8 (3.5-5.1) mmol/L Chloride 99 (98-107) mmol/L Carbon Dioxide 23 (22-30) mmol/L BUN 16 (9-20) mg/dL Creatinine 0.65 L (0.66-1.25) mg/dL Glucose 120 H (74-99) mg/dL Calcium 8.4 (8.4-10.2) mg/dL Total Bilirubin 0.9 (0.2-1.3) mg/dL AST 56 (17-59) U/L ALT 64 H (4-49) U/L Alkaline Phosphatase 194 H (38-126) U/L Total Protein 6.2 L (6.3-8.2) g/dL Albumin 3.4 L (3.5-5.0) g/dL - Imaging Comments: Chest CT angiogram reviewed as stated in HPI Assessment and Plan Assessment: 1. Pulmonary emboli 2. Right pleural effusion 3. Hypoxia 4. Status post wedge resection and right lower lobe lobectomy 02/04/2022 5. 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 History of coronary artery disease status post stenting Plan: 1. Continue IV heparin 2. Consult oncology for recommendations on oral anticoagulation and establish with patient 3. Continue ICU management 4. Echocardiogram pending 5. At this time there is no indication for any vascular surgical intervention 6. Defer oral anticoagulation to oncology, timing dependent on cardiothoracic surgery Thank you for this consultation. The impression and plan of care has been dictated as directed. Dr. Bloom I performed a history and examination of this patient, discussed the same with the dictator. I agree with the dictator's note ,documented as a scribe. Any additional findings or plans will be noted.
--- NOTE | 2022-02-21 09:21 | P.GSCN ---
History of Present Illness Consult date: 02/21/22 Reason for Consult: Known to our service from previous lobectomy Requesting physician: Jorge Talamantes History of present illness: This is a 61-year-old male patient who follows on an outpatient basis with Dr. Giacomo Patiño for primary care and Dr. Barnes for pulmonology. He has a previous medical history of lung cancer status post right lower lobectomy, previous tobacco dependence, COPD, occasional marijuana use, coronary artery disease with myocardial infarction status post drug-eluting stents to the LAD in June 2014, hypertension, hyperlipidemia, and family history of premature coronary artery disease. On 02/04/2022 he underwent right lower lobectomy with lymph node dissection, originally a VATS procedure which converted to full open thoracotomy. His postoperative course was uneventful and he was discharged to home on February 07 on home oxygen at 2 L/m. 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 He was seen last week in follow- up with the surgery and, incision is healing well, no further treatment necessary from thoracic surgery. He was recommended to follow up with oncology for further cancer treatment. He was supposed to follow-up with Dr. Barnes in the in the office tomorrow, unfortunately he developed significant shortness of breath and some right-sided chest pain and reported to [facility] for evaluation and treatment. Chest x-ray demonstrated large right-sided pleural effusion. WBC 12.4, hemoglobin 12.6, d-dimer was quite elevated at 4.91, creatinine 0.65, troponin negative, BNP 513. Subsequently he underwent CTA of the chest which was positive for right-sided upper and lower pulmonary embolism along with right-sided large pleural effusion. He was started on IV heparin and admitted to the intensive care unit. Consultation was placed to vascular surgery for his pulmonary embolism, Dr. Barnes for pulmonary management, and Dr. Drew as the patient is known to our service. Review of Systems Review of systems was completed and was negative except as noted - Cardiovascular Reports as per HPI, Reports chest pain, Reports dyspnea on exertion, Reports shortness of breath Past Medical History Past Medical History: Coronary Artery Disease (CAD), Cancer, GERD/Reflux, Hyperlipidemia, Hypertension, Myocardial Infarction ([place]) Additional Past Medical History / Comment(s): PET SCAN ON 08/27/21 SHOWS RIGHT BASILAR LUNG NODULE. ( NSTEMI 07-02-14), KIDNEY STONES. RT INGUINAL HERNIA, emphysema Last Myocardial Infarction Date:: DATE UNKNOWN History of Any Multi-Drug Resistant Organisms: None Reported Past Surgical History: Appendectomy, Heart Catheterization With Stent, Tonsillectomy Additional Past Surgical History / Comment(s): 1989 HAD POLYP REMOVED FROM THROAT-BENIGN, 07-02-14 STENT TO LAS, recent aide. bronchoscopy; right lower lobectomy through thoracotomy approach 02/04/2022 Past Anesthesia/Blood Transfusion Reactions: No Reported Reaction Date of Last Stent Placement:: 07-02-14 Past Psychological History: No Psychological Hx Reported Smoking Status: Current every day smoker Past Alcohol Use History: None Reported Past Drug Use History: Marijuana - Past Family History Father Family Medical History: Myocardial Infarction ([place]) Additional Family Medical History / Comment(s): from massive mi age 42 Mother Family Medical History: Unable to Obtain Medications and Allergies Home Medications Medication Instructions Recorded Confirmed Type Aspirin 325 mg PO HS 07/02/14 02/21/22 History Atorvastatin [Lipitor] 80 mg PO HS #90 tab 07/03/14 02/21/22 Rx Nitroglycerin Sl Tabs [Nitrostat] 0.4 mg SUBLINGUAL Q5M PRN #25 tab 07/03/14 02/21/22 Rx Fluticasone/Umeclidin/Vilanter 1 puff INHALATION RT-HS 02/02/22 02/21/22 History [Trelegy Ellipta 100-62.5-25] Acetaminophen Tab [Tylenol] 1,000 mg PO Q6HR PRN tab 02/08/22 02/21/22 Rx Metoprolol Tartrate [Lopressor] 12.5 mg PO BID #180 02/08/22 02/21/22 Rx Midodrine [ProAmatine] 10 mg PO AC-TID #90 tab 02/08/22 02/21/22 Rx Protandim Life Advantage 2 cap PO DAILY 02/21/22 02/21/22 History Allergies Allergy/AdvReac Type Severity Reaction Status Date / Time No Known Allergies Allergy Verified 02/21/22 07:42 Surgical - Exam Vital Signs Temp Pulse Resp BP Pulse Ox 97.5 F L 114 H 16 121/74 88 L 02/21/22 05:00 02/21/22 05:00 02/21/22 05:00 02/21/22 05:00 02/21/22 05:00 CONSTITUTIONAL: Awake and alert, appears comfortable, cooperative, well- developed, well-nourished, no pain, no acute distress EYES: Pupils equal, round, reactive to light, normal ocular movement ENT: Moist mucous membranes without oral lesions present NECK: No masses, no bruits, trachea midline RESPIRATORY: Lungs sounds diminished bilaterally, right greater than left. Respirations even, nonlabored. Currently on 3 L nasal cannula. Strong cough. No chest wall deformities. CARDIOVASCULAR: S1, S2 present. Tachy but regular rate and rhythm, sinus tach on telemetry. Palpable peripheral pulses bilaterally. No edema present. No calf pain or tenderness noted. GASTROINTESTINAL: Abdomen soft, nontender, nondistended without masses or organomegaly noted. There is no rebound or guarding present. Active bowel sounds present 4 quadrants. GENITOURINARY: Deferred INTEGUMENTARY: Skin is warm and dry with evidence of good perfusion. Right thoracotomy incision well healed NEUROLOGIC: Cranial nerves II through XII intact, normal coordination, no obvious motor or sensory deficits, speech is normal MUSKULOSKELETAL: Able to move all extremities, strength equal bilaterally, normal posture PSYCHIATRIC: Alert and oriented to person place and time, appropriate affect, intact judgment and insight Results - Labs 02/21/22 05:29 02/21/22 05:29 Abnormal Lab Results - Last 24 Hours (Table) 02/21/22 02/21/22 02/21/22 Range/Units 05:29 05:29 05:29 WBC 12.4 H (3.8-10.6) k/uL RBC 3.90 L (4.30-5.90) m/uL Hgb 12.6 L (13.0-17.5) gm/dL Hct 37.5 L (39.0-53.0) % Neutrophils # 10.1 H (1.3-7.7) k/uL D-Dimer 4.91 H (<0.60) mg/L FEU Sodium 134 L (137-145) mmol/L Creatinine 0.65 L (0.66-1.25) mg/dL Glucose 120 H (74-99) mg/dL ALT 64 H (4-49) U/L Alkaline Phosphatase 194 H (38-126) U/L Total Protein 6.2 L (6.3-8.2) g/dL Albumin 3.4 L (3.5-5.0) g/dL Diabetes panel 02/21/22 Range/Units 05:29 Sodium 134 L (137-145) mmol/L Potassium 4.8 (3.5-5.1) mmol/L Chloride 99 (98-107) mmol/L Carbon Dioxide 23 (22-30) mmol/L BUN 16 (9-20) mg/dL Creatinine 0.65 L (0.66-1.25) mg/dL Glucose 120 H (74-99) mg/dL Calcium 8.4 (8.4-10.2) mg/dL AST 56 (17-59) U/L ALT 64 H (4-49) U/L Alkaline Phosphatase 194 H (38-126) U/L Total Protein 6.2 L (6.3-8.2) g/dL Albumin 3.4 L (3.5-5.0) g/dL Calcium panel 02/21/22 Range/Units 05:29 Calcium 8.4 (8.4-10.2) mg/dL Albumin 3.4 L (3.5-5.0) g/dL Pituitary panel 02/21/22 Range/Units 05:29 Sodium 134 L (137-145) mmol/L Potassium 4.8 (3.5-5.1) mmol/L Chloride 99 (98-107) mmol/L Carbon Dioxide 23 (22-30) mmol/L BUN 16 (9-20) mg/dL Creatinine 0.65 L (0.66-1.25) mg/dL Glucose 120 H (74-99) mg/dL Calcium 8.4 (8.4-10.2) mg/dL Adrenal panel 02/21/22 Range/Units 05:29 Sodium 134 L (137-145) mmol/L Potassium 4.8 (3.5-5.1) mmol/L Chloride 99 (98-107) mmol/L Carbon Dioxide 23 (22-30) mmol/L BUN 16 (9-20) mg/dL Creatinine 0.65 L (0.66-1.25) mg/dL Glucose 120 H (74-99) mg/dL Calcium 8.4 (8.4-10.2) mg/dL Total Bilirubin 0.9 (0.2-1.3) mg/dL AST 56 (17-59) U/L ALT 64 H (4-49) U/L Alkaline Phosphatase 194 H (38-126) U/L Total Protein 6.2 L (6.3-8.2) g/dL Albumin 3.4 L (3.5-5.0) g/dL - Imaging Chest x-ray: report reviewed, image reviewed CT scan - chest: report reviewed, image reviewed Assessment and Plan Assessment: 1. Right-sided pulmonary embolus 2. Right-sided pleural effusion 3. Shortness of breath, chest pain secondary to above 4. Acute on chronic hypoxic respiratory failure, currently on home oxygen 5. 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 Previous tobacco dependence 7. COPD 8. Occasional marijuana use 9. Coronary artery disease with myocardial infarction status post drug-eluting stents to the LAD in June 2014 10. Hypertension 11. Hyperlipidemia 12. Family history of premature coronary artery disease Plan: The patient was seen and examined at the bedside in the emergency room with family present. Chart/diagnostics were reviewed. The case was discussed with Dr. Hodges. We will order incentive spirometry which should be encouraged. Wean O2 as tolerated. Recommend consultation to oncology. Patient may need thoracentesis for removal of pleural effusion, should be completed prior to initiation of oral anticoagulation, will defer to pulmonology. Increase activity as tolerated. Medical management of other comorbidities per internal medicine, pulmonology, vascular surgery. We will continue to follow along while hospitalized and make further recommendations as appropriate. Thank you for this consultation. I have personally seen and examined the patient, performed the documentation and the assessment and plan as written. Number of minutes spent on the visit: 30. BENJAMIN Freire
--- NOTE | 2022-02-21 11:30 | P.CONS ---
History of Present Illness - Reason for Consult Consult date: 02/21/22 - Chief Complaint Shortness of breath - History of Present Illness Mr. 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 He notes waking up on the morning of 02/16/2022, when he noted a pulling sensation in the area of the right upper abdomen/right lower chest wall. Since this time, he has developed progressive dyspnea on exertion, which worsen over the last 2-3 days necessitating the need for persistent supplemental oxygen use. Postoperatively, he had only been using supplemental oxygen at night as a precaution. He then noticed having occasional dyspnea with conversation, which is also new. He denies any fevers, chills, sick contacts, worsening cough, headaches, blurry vision, or ataxia. Given his progressive symptoms, he presented to the ED for additional management and monitoring. In the ED, he was found to have tachycardia with heart rates ranging from the 110s to the 120s. He is saturating in the upper to mid 90s on 3 L of supplemental oxygen. Labs are significant for neutrophilic leukocytosis with white blood cell count 12.4 menses ANC 10.1), d-dimer 4.91, T 64, alkaline phosphatase 194. Troponin was negative with proBNP measured at 513. CT angiogram on 02/21/2022 revealed multiple pulmonary emboli in the right upper lobe and right lower lobe. There is no evidence of right heart strain, but did note large loculated right pleural effusion. He was started on antibiotics incl uding ceftriaxone and azithromycin with blood cultures been obtained. Oncology was counseled that for additional management recommendations. Review of Systems 14 point review of systems was conducted with pertinent positives and negatives as noted per HPI Past Medical History Past Medical History: Coronary Artery Disease (CAD), Cancer, GERD/Reflux, Hyperlipidemia, Hypertension, Myocardial Infarction ([place]) Additional Past Medical History / Comment(s): PET SCAN ON 08/27/21 SHOWS RIGHT BASILAR LUNG NODULE. ( NSTEMI 2-18-15), KIDNEY STONES. RT INGUINAL HERNIA, emphysema Last Myocardial Infarction Date:: DATE UNKNOWN History of Any Multi-Drug Resistant Organisms: None Reported Past Surgical History: Appendectomy, Heart Catheterization With Stent, Tonsillectomy Additional Past Surgical History / Comment(s): 1989 HAD POLYP REMOVED FROM THROAT-BENIGN, 07-02-14 STENT TO LAS, recent aide. bronchoscopy; right lower lobectomy through thoracotomy approach 02/04/2022 Past Anesthesia/Blood Transfusion Reactions: No Reported Reaction Date of Last Stent Placement:: 07-02-14 Past Psychological History: No Psychological Hx Reported Smoking Status: Current every day smoker Past Alcohol Use History: None Reported Past Drug Use History: Marijuana - Past Family History Father Family Medical History: Myocardial Infarction ([place]) Additional Family Medical History / Comment(s): from massive mi age 42 Mother Family Medical History: Unable to Obtain Medications and Allergies Home Medications Medication Instructions Recorded Confirmed Type Aspirin 325 mg PO HS 07/02/14 02/21/22 History Atorvastatin [Lipitor] 80 mg PO HS #90 tab 07/03/14 02/21/22 Rx Nitroglycerin Sl Tabs [Nitrostat] 0.4 mg SUBLINGUAL Q5M PRN #25 tab 07/03/14 02/21/22 Rx Fluticasone/Umeclidin/Vilanter 1 puff INHALATION RT-HS 02/02/22 02/21/22 History [Trelegy Ellipta 100-62.5-25] Acetaminophen Tab [Tylenol] 1,000 mg PO Q6HR PRN tab 02/08/22 02/21/22 Rx Metoprolol Tartrate [Lopressor] 12.5 mg PO BID #180 02/08/22 02/21/22 Rx Midodrine [ProAmatine] 10 mg PO AC-TID #90 tab 02/08/22 02/21/22 Rx Protandim Life Advantage 2 cap PO DAILY 02/21/22 02/21/22 History Allergies Allergy/AdvReac Type Severity Reaction Status Date / Time No Known Allergies Allergy Verified 02/21/22 07:42 Physical Exam Vitals: Vital Signs Temp Pulse Resp BP Pulse Ox 02/21/22 09:03 98.1 F 116 H 18 113/78 97 02/21/22 08:59 122 H 02/21/22 08:45 114 H 02/21/22 05:35 18 02/21/22 05:26 106 H 02/21/22 05:16 104 H 02/21/22 05:07 88 L 02/21/22 05:00 97.5 F L 114 H 16 121/74 88 L Intake and Output 02/20/22 02/21/22 02/21/22 22:59 06:59 14:59 Other: Weight 79.832 kg Seated upright in bed, no acute distress - Constitutional Seated upright in bed, no acute distress General appearance: average body habitus, cooperative, no acute distress, thin - EENT Eyes: EOMI - Respiratory Respiratory: right: diminished (Diminished sounds in the right lung base), left: other (Inspiratory crackles noted at the left lung base), negative: rhonchi, wheezing - Cardiovascular Regular tachycardia ankle Peripheral Edema: left: Trace - Gastrointestinal General gastrointestinal: normal bowel sounds, no tenderness - Musculoskeletal Clubbing of the digits bilaterally - Psychiatric Psychiatric: A&O x's 3, appropriate affect, intact judgment & insight Results CBC & Chem 7: 02/21/22 05:29 02/21/22 05:29 Labs: Abnormal Lab Results - Last 24 Hours (Table) 02/21/22 02/21/22 02/21/22 Range/Units 05:29 05:29 05:29 WBC 12.4 H (3.8-10.6) k/uL RBC 3.90 L (4.30-5.90) m/uL Hgb 12.6 L (13.0-17.5) gm/dL Hct 37.5 L (39.0-53.0) % Neutrophils # 10.1 H (1.3-7.7) k/uL D-Dimer 4.91 H (<0.60) mg/L FEU Sodium 134 L (137-145) mmol/L Creatinine 0.65 L (0.66-1.25) mg/dL Glucose 120 H (74-99) mg/dL ALT 64 H (4-49) U/L Alkaline Phosphatase 194 H (38-126) U/L Total Protein 6.2 L (6.3-8.2) g/dL Albumin 3.4 L (3.5-5.0) g/dL Assessment and Plan Assessment: Mr. Hernandez is a 61-year-old gentleman with a past medical history significant for smoking, COPD, CAD c/b [place], and recently diagnosed limited stage small cell lung cancer with mixed squamous cell histology presenting with progressive dyspnea on exertion and at rest found to have pulmonary emboli and large locul ated right pleural effusion. (1) Right pulmonary embolus Current Visit: Yes Status: Acute Code(s): I26.99 - OTHER PULMONARY EMBOLISM WITHOUT ACUTE COR PULMONALE SNOMED Code(s): 75010537 (2) Pleural effusion, right Current Visit: Yes Status: Acute Code(s): J90 - PLEURAL EFFUSION, NOT ELSEWHERE CLASSIFIED SNOMED Code(s): 94007483 (3) Small cell lung cancer Current Visit: Yes Status: Acute Code(s): C34.90 - MALIGNANT NEOPLASM OF UNSP PART OF UNSP BRONCHUS OR LUNG SNOMED Code(s): 441890544 Plan: #Pulmonary embolism -2 risk factors for pulmonary embolism include recent right lower lobe lobectomy with right resection and mediastinoscopy along with known malignancy. He has not been smoking since his procedure on 02/04/2022 -He does not have any evidence of right heart strain radiographically, but does have tachycardia with supplementary oxygen use -Agree with heparin drip at this time -Prior to discharge, he'll need to be transitioned to oral therapeutic anticoagulation with Eliquis -Recommend obtaining Dopplers of the lower extremities bilaterally to assess for origin of the PE -Given his history of malignancy, he will require indefinite anticoagulation at least during the duration of his treatment #Large right pleural effusion -Noted on CTA, which is new from prior CT chest on 01/11/2022 -He has no clinical signs or symptoms of infection currently -Potential etiologies for his pleural effusion R likely exudative, including secondary to malignancy, pulmonary embolism, or recent surgery -Agree with pulmonology consult for potential diagnostic and therapeutic thoracentesis during admission -He should have this procedure done prior to transitioning to oral Eliquis #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 9 mm nodule seen at that time and the ipsilateral right lower lobe was not SUV avid with no SUV avid lymph nodes -Right lower lobe lobectomy along with additional wedge resection and mediastinal lymph node dissection performed on 02/04/2022 revealed 2 synchronous tumors with the largest measuring 3.5 cm both consistent with small cell lung cancer with foci of moderately differentiated squamous cell carcinoma -2 lymph nodes at R12 and station 7 were positive for small cell carcinoma -He currently has stage IIIB ([id number]) limited stage small cell lung cancer -As part of his staging, he should have brain MRI performed to definitively assess whether he would be a candidate for concurrent chemo radiation therapy. This should ideally be done prior to discharge given the small cell histology to avoid delays in initiating treatment as an outpatient #Neutrophilic leukocytosis -Likely reactive secondary to pulmonary embolism, less likely secondary to infection -Infectious workup ordered along with initiation of antibiotics -Continue to monitor
--- NOTE | 2022-02-21 11:30 | P.CONS ---
History of Present Illness - Reason for Consult Consult date: 02/21/22 - Chief Complaint Shortness of breath - History of Present Illness Mr. Hernandez is a 61-year-old gentleman with a past medical history significant for cigarette smoking/work in a factory complicated by COPD, CAD complicated by [place] status post drug-eluting stent in June 2014, and recently diagnosed limited stage small cell lung cancer status post right lower lobectomy with wedge resection and mediastinal lymph node dissection on 02/04/2022 who presented to the ED with increased shortness of breath. He notes waking up on the morning of 02/16/2022, when he noted a pulling sensation in the area of the right upper abdomen/right lower chest wall. Since this time, he has developed progressive dyspnea on exertion, which worsen over the last 2-3 days necessitating the need for persistent supplemental oxygen use. Postoperatively, he had only been using supplemental oxygen at night as a precaution. He then noticed having occasional dyspnea with conversation, which is also new. He denies any fevers, chills, sick contacts, worsening cough, headaches, blurry vision, or ataxia. Given his progressive symptoms, he presented to the ED for additional management and monitoring. In the ED, he was found to have tachycardia with heart rates ranging from the 110s to the 120s. He is saturating in the upper to mid 90s on 3 L of supplemental oxygen. Labs are significant for neutrophilic leukocytosis with white blood cell count 12.4 menses ANC 10.1), d-dimer 4.91, T 64, alkaline phosphatase 194. Troponin was negative with proBNP measured at 513. CT angiogram on 02/21/2022 revealed multiple pulmonary emboli in the right upper lobe and right lower lobe. There is no evidence of right heart strain, but did note large loculated right pleural effusion. He was started on antibiotics incl uding ceftriaxone and azithromycin with blood cultures been obtained. Oncology was counseled that for additional management recommendations. Review of Systems 14 point review of systems was conducted with pertinent positives and negatives as noted per HPI Past Medical History Past Medical History: Coronary Artery Disease (CAD), Cancer, GERD/Reflux, Hyperlipidemia, Hypertension, Myocardial Infarction ([place]) Additional Past Medical History / Comment(s): PET SCAN ON 08/27/21 SHOWS RIGHT BASILAR LUNG NODULE. ( NSTEMI 2-18-15), KIDNEY STONES. RT INGUINAL HERNIA, emphysema Last Myocardial Infarction Date:: DATE UNKNOWN History of Any Multi-Drug Resistant Organisms: None Reported Past Surgical History: Appendectomy, Heart Catheterization With Stent, Tonsillectomy Additional Past Surgical History / Comment(s): 1989 HAD POLYP REMOVED FROM THROAT-BENIGN, 07-02-14 STENT TO LAS, recent aide. bronchoscopy; right lower lobectomy through thoracotomy approach 02/04/2022 Past Anesthesia/Blood Transfusion Reactions: No Reported Reaction Date of Last Stent Placement:: 07-02-14 Past Psychological History: No Psychological Hx Reported Smoking Status: Current every day smoker Past Alcohol Use History: None Reported Past Drug Use History: Marijuana - Past Family History Father Family Medical History: Myocardial Infarction ([place]) Additional Family Medical History / Comment(s): from massive [place] age 42 Mother Family Medical History: Unable to Obtain Medications and Allergies Home Medications Medication Instructions Recorded Confirmed Type Aspirin 325 mg PO HS 07/02/14 02/21/22 History Atorvastatin [Lipitor] 80 mg PO HS #90 tab 07/03/14 02/21/22 Rx Nitroglycerin Sl Tabs [Nitrostat] 0.4 mg SUBLINGUAL Q5M PRN #25 tab 07/03/14 02/21/22 Rx Fluticasone/Umeclidin/Vilanter 1 puff INHALATION RT-HS 02/02/22 02/21/22 History [Trelegy Ellipta 100-62.5-25] Acetaminophen Tab [Tylenol] 1,000 mg PO Q6HR PRN tab 02/08/22 02/21/22 Rx Metoprolol Tartrate [Lopressor] 12.5 mg PO BID #180 02/08/22 02/21/22 Rx Midodrine [ProAmatine] 10 mg PO AC-TID #90 tab 02/08/22 02/21/22 Rx Protandim Life Advantage 2 cap PO DAILY 02/21/22 02/21/22 History Allergies Allergy/AdvReac Type Severity Reaction Status Date / Time No Known Allergies Allergy Verified 02/21/22 07:42 Physical Exam Vitals: Vital Signs Temp Pulse Resp BP Pulse Ox 02/21/22 09:03 98.1 F 116 H 18 113/78 97 02/21/22 08:59 122 H 02/21/22 08:45 114 H 02/21/22 05:35 18 02/21/22 05:26 106 H 02/21/22 05:16 104 H 02/21/22 05:07 88 L 02/21/22 05:00 97.5 F L 114 H 16 121/74 88 L Intake and Output 02/20/22 02/21/22 02/21/22 22:59 06:59 14:59 Other: Weight 79.832 kg Seated upright in bed, no acute distress - Constitutional Seated upright in bed, no acute distress General appearance: average body habitus, cooperative, no acute distress, thin - EENT Eyes: EOMI - Respiratory Respiratory: right: diminished (Diminished sounds in the right lung base), left: other (Inspiratory crackles noted at the left lung base), negative: rhonchi, wheezing - Cardiovascular Regular tachycardia ankle Peripheral Edema: left: Trace - Gastrointestinal General gastrointestinal: normal bowel sounds, no tenderness - Musculoskeletal Clubbing of the digits bilaterally - Psychiatric Psychiatric: A&O x's 3, appropriate affect, intact judgment & insight Results CBC & Chem 7: 02/21/22 05:29 02/21/22 05:29 Labs: Abnormal Lab Results - Last 24 Hours (Table) 02/21/22 02/21/22 02/21/22 Range/Units 05:29 05:29 05:29 WBC 12.4 H (3.8-10.6) k/uL RBC 3.90 L (4.30-5.90) m/uL Hgb 12.6 L (13.0-17.5) gm/dL Hct 37.5 L (39.0-53.0) % Neutrophils # 10.1 H (1.3-7.7) k/uL D-Dimer 4.91 H (<0.60) mg/L FEU Sodium 134 L (137-145) mmol/L Creatinine 0.65 L (0.66-1.25) mg/dL Glucose 120 H (74-99) mg/dL ALT 64 H (4-49) U/L Alkaline Phosphatase 194 H (38-126) U/L Total Protein 6.2 L (6.3-8.2) g/dL Albumin 3.4 L (3.5-5.0) g/dL Assessment and Plan Assessment: Mr. Hernandez is a 61-year-old gentleman with a past medical history significant for smoking, COPD, CAD c/b [place], and recently diagnosed limited stage small cell lung cancer with mixed squamous cell histology presenting with progressive dyspnea on exertion and at rest found to have pulmonary emboli and large locul ated right pleural effusion. (1) Right pulmonary embolus Current Visit: Yes Status: Acute Code(s): I26.99 - OTHER PULMONARY EMBOLISM WITHOUT ACUTE COR PULMONALE SNOMED Code(s): 55959333 (2) Pleural effusion, right Current Visit: Yes Status: Acute Code(s): J90 - PLEURAL EFFUSION, NOT ELSEWHERE CLASSIFIED SNOMED Code(s): 63801244 (3) Small cell lung cancer Current Visit: Yes Status: Acute Code(s): C34.90 - MALIGNANT NEOPLASM OF UNSP PART OF UNSP BRONCHUS OR LUNG SNOMED Code(s): 936710910 Plan: #Pulmonary embolism -2 risk factors for pulmonary embolism include recent right lower lobe lobectomy with right resection and mediastinoscopy along with known malignancy. He has not been smoking since his procedure on 02/04/2022 -He does not have any evidence of right heart strain radiographically, but does have tachycardia with supplementary oxygen use -Agree with heparin drip at this time -Prior to discharge, he'll need to be transitioned to oral therapeutic anticoagulation with Eliquis -Recommend obtaining Dopplers of the lower extremities bilaterally to assess for origin of the PE -Given his history of malignancy, he will require indefinite anticoagulation at least during the duration of his treatment #Large right pleural effusion -Noted on CTA, which is new from prior CT chest on 01/11/2022 -He has no clinical signs or symptoms of infection currently -Potential etiologies for his pleural effusion R likely exudative, including secondary to malignancy, pulmonary embolism, or recent surgery -Agree with pulmonology consult for potential diagnostic and therapeutic thoracentesis during admission -He should have this procedure done prior to transitioning to oral Eliquis #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 9 mm nodule seen at that time and the ipsilateral right lower lobe was not SUV avid with no SUV avid lymph nodes -Right lower lobe lobectomy along with additional wedge resection and mediastinal lymph node dissection performed on 02/04/2022 revealed 2 synchronous tumors with the largest measuring 3.5 cm both consistent with small cell lung cancer with foci of moderately differentiated squamous cell carcinoma -2 lymph nodes at R12 and station 7 were positive for small cell carcinoma -He currently has stage IIIB ([id number]) limited stage small cell lung cancer -As part of his staging, he should have brain MRI performed to definitively assess whether he would be a candidate for concurrent chemo radiation therapy. This should ideally be done prior to discharge given the small cell histology to avoid delays in initiating treatment as an outpatient #Neutrophilic leukocytosis -Likely reactive secondary to pulmonary embolism, less likely secondary to infection -Infectious workup ordered along with initiation of antibiotics -Continue to monitor
[2022-02-21] MEDS: SODIUM CHLORIDE 0.9% 1,000 ML IV SCH (12:05)
--- NOTE | 2022-02-21 14:38 | P.CNPUL ---
History of Present Illness Consult date: 02/21/22 Reason for consult: dyspnea History of present illness: This is a very pleasant 49-year-old male patient underwent recent right lower lobe resection for underlying lung mass and the patient was discharged home on oxygen at 2 L. The patient was doing while he was ambulating without any major difficulties and he was improving and he was at the point where he took himself off the oxygen. Over the past few days, he became more short of breath when he developed pain across the chest anteriorly and apically and posteriorly worse with breathing and movement. No hemoptysis. No syncope. He came into the emergency department and a CT angiogram was done and the patient was found to have multiple pulmonary emboli in the right upper lobe and right lower lobe pulmonary artery. Normal RV size and there was no evidence of any strain. There is extensive bullous emphysema and a large loculated right-sided pleural effusion. There is also mediastinal and bronchial adenopathy. Right pleural effusion essentially normal and it is postsurgical in nature. Based on this, the patient was hospitalized and he was started on IV heparin. His d-dimer is at 4.9. His PTT therapeutic for now. His chemistry is within normal limits. His BNP level is 513. His troponin level is at 0.01. The white cell count that 12.4 and hemoglobin is 12.6. Is currently sitting up on a chair. No calf pain or tenderness. The surgical notes over the right chest area is very clean and intact. THE patient underwent his surgery and this was a fall (thoracotomy. The patient was found to have moderately differentiated invasive small cell carcinoma along with a synchronous small cell lung cancer stage III the based on the pathologic Review of Systems Constitutional: Reports fatigue, Reports weakness Eyes: denies as per HPI, denies blurred vision, denies bulging eye, denies decreased vision, denies diplopia, denies discharge, denies dry eye, denies irritation, denies itching, denies pain, denies photophobia, denies loss of peripheral vision, denies loss of vision, denies tunnel vision/blind spots Ears: deny: decreased hearing, ear discharge, earache, tinnitus Ears, nose, mouth and throat: Reports as per HPI Breasts: absent: as per HPI, gynecomastia Cardiovascular: Reports as per HPI, Reports chest pain, Reports decreased exercise tolerance, Reports dyspnea on exertion Respiratory: Reports dyspnea Gastrointestinal: Reports as per HPI Genitourinary: Reports as per HPI Musculoskeletal: Reports as per HPI Musculoskeletal: absent: ankle pain, ankle stiffness, ankle swelling Integumentary: Reports as per HPI Neurological: Reports as per HPI Psychiatric: Reports as per HPI Endocrine: Reports as per HPI Hematologic/Lymphatic: Reports as per HPI Allergic/Immunologic: Reports as per HPI Past Medical History Past Medical History: Coronary Artery Disease (CAD), Cancer, GERD/Reflux, Hyperlipidemia, Hypertension, Myocardial Infarction ([place]) Additional Past Medical History / Comment(s): PET SCAN ON 08/27/21 SHOWS RIGHT BASILAR LUNG NODULE. ( NSTEMI 07-02-14), KIDNEY STONES. RT INGUINAL HERNIA, emphysema Last Myocardial Infarction Date:: DATE UNKNOWN History of Any Multi-Drug Resistant Organisms: None Reported Past Surgical History: Appendectomy, Heart Catheterization With Stent, Tonsillectomy Additional Past Surgical History / Comment(s): 1989 HAD POLYP REMOVED FROM THROAT-BENIGN, 07-02-14 STENT TO LAS, recent aide. bronchoscopy; right lower lobectomy through thoracotomy approach 02/04/2022 Past Anesthesia/Blood Transfusion Reactions: No Reported Reaction Date of Last Stent Placement:: 07-02-14 Past Psychological History: No Psychological Hx Reported Smoking Status: Current every day smoker Past Alcohol Use History: None Reported Past Drug Use History: Marijuana - Past Family History Father Family Medical History: Myocardial Infarction ([place]) Additional Family Medical History / Comment(s): from massive mi age 42 Mother Family Medical History: Unable to Obtain Medications and Allergies Home Medications Medication Instructions Recorded Confirmed Type Aspirin 325 mg PO HS 07/02/14 02/21/22 History Atorvastatin [Lipitor] 80 mg PO HS #90 tab 07/03/14 02/21/22 Rx Nitroglycerin Sl Tabs [Nitrostat] 0.4 mg SUBLINGUAL Q5M PRN #25 tab 07/03/14 02/21/22 Rx Fluticasone/Umeclidin/Vilanter 1 puff INHALATION RT-HS 02/02/22 02/21/22 History [Trelegy Ellipta 100-62.5-25] Acetaminophen Tab [Tylenol] 1,000 mg PO Q6HR PRN tab 02/08/22 02/21/22 Rx Metoprolol Tartrate [Lopressor] 12.5 mg PO BID #180 02/08/22 02/21/22 Rx Midodrine [ProAmatine] 10 mg PO AC-TID #90 tab 02/08/22 02/21/22 Rx Protandim Life Advantage 2 cap PO DAILY 02/21/22 02/21/22 History Allergies Allergy/AdvReac Type Severity Reaction Status Date / Time No Known Allergies Allergy Verified 02/21/22 07:42 Physical Exam Vitals: Vital Signs Temp Pulse Resp BP Pulse Ox 02/21/22 13:46 98.2 F 114 H 18 125/70 96 02/21/22 12:08 111 H 20 117/72 98 02/21/22 11:00 112 H 18 124/75 94 L 02/21/22 09:03 98.1 F 116 H 18 113/78 97 02/21/22 08:59 122 H 02/21/22 08:45 114 H 02/21/22 05:35 18 02/21/22 05:26 106 H 02/21/22 05:16 104 H 02/21/22 05:07 88 L 02/21/22 05:00 97.5 F L 114 H 16 121/74 88 L Intake and Output 02/20/22 02/21/22 02/21/22 22:59 06:59 14:59 Other: Weight 79.832 kg CONSTITUTIONAL: Awake and alert, appears comfortable, cooperative, well- developed, well-nourished, no pain, no acute distress EYES: Pupils equal, round, reactive to light, normal ocular movement ENT: Moist mucous membranes without oral lesions present NECK: No masses, no bruits, trachea midline RESPIRATORY: Lungs sounds diminished bilaterally, right greater than left. Respirations even, nonlabored. Currently on 3 L nasal cannula. Strong cough. No chest wall deformities. CARDIOVASCULAR: S1, S2 present. Tachy but regular rate and rhythm, sinus tach on telemetry. Palpable peripheral pulses bilaterally. No edema present. No calf pain or tenderness noted. GASTROINTESTINAL: Abdomen soft, nontender, nondistended without masses or organomegaly noted. There is no rebound or guarding present. Active bowel sounds present 4 quadrants. GENITOURINARY: Deferred INTEGUMENTARY: Skin is warm and dry with evidence of good perfusion. Right thoracotomy incision well healed NEUROLOGIC: Cranial nerves II through XII intact, normal coordination, no obvious motor or sensory deficits, speech is normal MUSKULOSKELETAL: Able to move all extremities, strength equal bilaterally, normal posture PSYCHIATRIC: Alert and oriented to person place and time, appropriate affect, intact judgment and insight Results - Laboratory Findings CBC and BMP: 02/21/22 05:29 02/21/22 05:29 PT/INR, D-dimer PT 10.7 sec (9.0-12.0) 02/21/22 05:29 INR 1.0 (<1.2) 02/21/22 05:29 D-Dimer 4.91 mg/L FEU (<0.60) H 02/21/22 05:29 Abnormal lab findings: Abnormal Labs 02/21/22 02/21/22 02/21/22 05:29 05:29 05:29 WBC 12.4 H RBC 3.90 L Hgb 12.6 L Hct 37.5 L Neutrophils # 10.1 H APTT D-Dimer 4.91 H Sodium 134 L Creatinine 0.65 L Glucose 120 H ALT 64 H Alkaline Phosphatase 194 H Total Protein 6.2 L Albumin 3.4 L Procalcitonin 02/21/22 02/21/22 05:29 12:46 WBC RBC Hgb Hct Neutrophils # APTT 54.6 H D-Dimer Sodium Creatinine Glucose ALT Alkaline Phosphatase Total Protein Albumin Procalcitonin 0.45 H - Diagnostic Findings CT scan - chest: image reviewed Assessment and Plan Plan: Acute bilateral pulmonary embolism post thoracotomy and right lower lobe resection. Acute shortness of breath secondary to pulmonary embolism, rule out underlying DVT. Lung cancer a combination of non-small cell lung cancer , squamous cell car cinoma of the lung, T3 N0 M0 and limited stage small cell lung cancer COPD Right-sided pleural effusion, post thoracotomy History of smoking. His marijuana use History of coronary artery disease with previous CT and previous coronary stenting of the LAD Hypertension Hyperlipidemia Plan Supplement this patient with O2 to maintain a saturation above 90% IV heparin Then a Doppler of the lower legs and with his bilaterally Obtain echocardiogram to evaluate pulmonary artery pressures Minimal tachycardia without any significant hemodynamic instability currently on 2 L O2. The patient can be moved to telemetry unit. Continue bronchodilators and use of incentive spirometer Surgical one-sided dry clean and intact We'll continue to follow
[2022-02-21] MEDS: IPRATROPIUM 0.5 MG/2.5 ML NEBU INHALATION SCH (15:02)
--- NOTE | 2022-02-21 15:45 | US ---
EXAMINATION TYPE: US venous doppler duplex LE BI DATE OF EXAM: 02/21/2022 2:39 PM COMPARISON: Left lower extremity venous ultrasound 10/02/2019. CLINICAL HISTORY: PE. Right PE. On IV heparin. SIDE PERFORMED: Bilateral TECHNIQUE: The lower extremity deep venous system is examined utilizing real time linear array sonog danielle with graded compression, doppler sonography and color-flow sonography. VESSELS IMAGED: Common Femoral Vein Deep Femoral Vein Greater Saphenous Vein * Femoral Vein Popliteal Vein Small Saphenous Vein * Proximal Calf Veins (* superficial vessels) Grayscale, color doppler, spectral doppler imaging performed of the deep veins of the lower extremiti es. There is normal flow, compressibility, vascular waveforms. Right Leg: Negative for DVT Left Leg: Negative for DVT IMPRESSION: No ultrasound evidence of deep venous thrombosis of the bilateral lower extremities.
[2022-02-21] MEDS ORDERED: ACETAMINOPHEN TAB 325 MG TAB PO STA (18:37)
[2022-02-21] MEDS: SYMBICORT 80-4.5 MCG INHALER INHALATION SCH (19:42)
[2022-02-21] MEDS: ATORVASTATIN 80 MG TAB PO SCH (21:41)
[2022-02-21] MEDS: METOPROLOL TARTRATE 12.5 MG TAB PO SCH (21:41)
--- NOTE | 2022-02-21 22:35 | P.HPIM ---
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 Patient had recently right lung wedge resection and right lower lobe lobectomy on 02/04/2022 and was discharged home on 02/08/2022. Patient is supposed to follow-up with oncology as an outpatient. Patient was hypoxic with pulse ox 88% on room air and was placed on oxygen via nasal cannula. He was also tachycardic. He was found to have elevated D-dimer level. Otherwise denied any complaints of leg swelling currently. Patient states that he always had left ankle swelling on and off. Denies any leg pain. Patient has been afebrile. No cough or sputum production. No headache or diz ziness or lightheadedness. CTA chest showed multiple pulmonary emboli in the right upper lobe and right lower lobe pulmonary artery. Normal heart size and no evidence of right heart strain. Extensive bullous emphysema, large loculated right pleural effusion. Mediastinal endobronchial adenopathy. Right pleural effusion essentially new compared to CT scan on 01/11/2022. EKG showed sinus tachycardia with occasional PVCs. Laboratory data showed WBC 12.4 hemoglobin 12.6 and platelets 378 D-dimer level is 4.91 Sodium 134 potassium 4.8 chloride 99 bicarb is 23 BUN 16 and creatinine 0.65 and blood sugar 120, AST 56, ALT 64 and alk phos 194 Review of Systems Constitutional: Patient denies any fever or chills . Generalized weakness. Abdomen: Patient denied any nausea or vomiting or abd. pain Cardiovascular: Patient denies any chest pain or short of breath no palpi tations. Respiratory: patient denied any cough . no sputum production. Patient does have exertional shortness of breath Neurologic: Patient denied any numbness or tingling headache. Musculoskeletal: Patient denies any complaints of joint swelling or deformity. Skin: Negative Psychiatric: Negative Endocrine: No heat or cold intolerance. No recent weight gain. Genitourinary: No dysuria or hematuria. All other 14 point ROS negative except the above Past Medical History Past Medical History: Coronary Artery Disease (CAD), Cancer, GERD/Reflux, Hyperlipidemia, Hypertension, Myocardial Infarction ([place]) Additional Past Medical History / Comment(s): PET SCAN ON 08/27/21 SHOWS RIGHT BASILAR LUNG NODULE. ( NSTEMI 07-02-14), KIDNEY STONES. RT INGUINAL HERNIA, emphysema Last Myocardial Infarction Date:: DATE UNKNOWN History of Any Multi-Drug Resistant Organisms: None Reported Past Surgical History: Appendectomy, Heart Catheterization With Stent, Tonsillectomy Additional Past Surgical History / Comment(s): 1989 HAD POLYP REMOVED FROM THROAT-BENIGN, 07-02-14 STENT TO LAS, recent aide. bronchoscopy; right lower lobectomy through thoracotomy approach 02/04/2022 Past Anesthesia/Blood Transfusion Reactions: No Reported Reaction Date of Last Stent Placement:: 07-02-14 Past Psychological History: No Psychological Hx Reported Smoking Status: Current every day smoker Past Alcohol Use History: None Reported Past Drug Use History: Marijuana - Past Family History Father Family Medical History: Myocardial Infarction ([place]) Additional Family Medical History / Comment(s): from massive mi age 42 Mother Family Medical History: Unable to Obtain Medications and Allergies Home Medications Medication Instructions Recorded Confirmed Type Aspirin 325 mg PO HS 07/02/14 02/21/22 History Atorvastatin [Lipitor] 80 mg PO HS #90 tab 07/03/14 02/21/22 Rx Nitroglycerin Sl Tabs [Nitrostat] 0.4 mg SUBLINGUAL Q5M PRN #25 tab 07/03/14 02/21/22 Rx Fluticasone/Umeclidin/Vilanter 1 puff INHALATION RT-HS 02/02/22 02/21/22 History [Trelegy Ellipta 100-62.5-25] Acetaminophen Tab [Tylenol] 1,000 mg PO Q6HR PRN tab 02/08/22 02/21/22 Rx Metoprolol Tartrate [Lopressor] 12.5 mg PO BID #180 02/08/22 02/21/22 Rx Midodrine [ProAmatine] 10 mg PO AC-TID #90 tab 02/08/22 02/21/22 Rx Protandim Life Advantage 2 cap PO DAILY 02/21/22 02/21/22 History Allergies Allergy/AdvReac Type Severity Reaction Status Date / Time No Known Allergies Allergy Verified 02/21/22 07:42 Physical Exam Vitals: Vital Signs Temp Pulse Resp BP Pulse Ox 02/21/22 09:03 98.1 F 116 H 18 113/78 97 02/21/22 08:59 122 H 02/21/22 08:45 114 H 02/21/22 05:35 18 02/21/22 05:26 106 H 02/21/22 05:16 104 H 02/21/22 05:07 88 L 02/21/22 05:00 97.5 F L 114 H 16 121/74 88 L Intake and Output 02/20/22 02/21/22 02/21/22 22:59 06:59 14:59 Other: Weight 79.832 kg PHYSICAL EXAMINATION: Patient is lying in the bed comfortably, no acute distress, awake alert and orie nted.. HEENT: Normocephalic. Neck is supple. Pupils reactive. Nostrils clear. Oral cavity is moist. Neck reveals no JVD, carotid bruits, or thyromegaly. CHEST EXAMINATION: Trachea is central. Symmetrical expansion. Right basilar diminished sounds. No wheezing or rhonchi.. CARDIAC: Normal S1, S2 with no gallops. No murmurs ABDOMEN: Soft. Bowel sounds present. Nontender. No organomegaly. No abdominal bruits. Extremities: reveal no edema. No clubbing or cyanosis Neurologically awake, alert, oriented x3 with well-coordinated movements. No focal deficits noted Skin: No rash or skin lesions. Psychiatric: Coperative. Nonsuicidal, Musculoskeletal: No joint swelling or deformity. Normal range of motion. Results CBC & Chem 7: 02/21/22 05:29 02/21/22 05:29 Labs: Abnormal Lab Results - Last 24 Hours (Table) 02/21/22 02/21/22 02/21/22 Range/Units 05:29 05:29 05:29 WBC 12.4 H (3.8-10.6) k/uL RBC 3.90 L (4.30-5.90) m/uL Hgb 12.6 L (13.0-17.5) gm/dL Hct 37.5 L (39.0-53.0) % Neutrophils # 10.1 H (1.3-7.7) k/uL D-Dimer 4.91 H (<0.60) mg/L FEU Sodium 134 L (137-145) mmol/L Creatinine 0.65 L (0.66-1.25) mg/dL Glucose 120 H (74-99) mg/dL ALT 64 H (4-49) U/L Alkaline Phosphatase 194 H (38-126) U/L Total Protein 6.2 L (6.3-8.2) g/dL Albumin 3.4 L (3.5-5.0) g/dL Thrombosis Risk Factor Assmnt - DVT/VTE Prophylaxis DVT/VTE Prophylaxis: Pharmacologic Prophylaxis ordered Assessment and Plan Assessment: Acute multiple pulmonary emboli in the right upper lobe and right lower lobe pulmonary artery. 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 There is port right lung wedge resection and right lower lobe lobectomy on 02/04/2022. Large right-sided pleural effusion Mediastinal lymphadenopathy Emphysematous changes /COPD Coronary artery disease history of stent placement Hypertension Hyperlipidemia History of smoking DVT prophylaxis patient is already on heparin drip Plan: Patient will be continued on heparin drip and oxygen supplementation. Continue telemetry monitoring. 2D echocardiogram was ordered and bilateral lower extremity duplex scan to rule out DVT. Patient was given a dose of ceftriaxone and azithromycin. Follow-up CBC and BMP tomorrow Current with duo nebs and incentive spirometry and follow-up closely. Pulmonary, oncology and vascular surgery is on board. Prognosis is guarded at this time. Time with Patient: Greater than 30
[2022-02-22] MEDS: SYMBICORT 80-4.5 MCG INHALER INHALATION SCH ×2 (07:36→20:02)
[2022-02-22] MEDS: IPRATROPIUM 0.5 MG/2.5 ML NEBU INHALATION SCH ×4 (07:36→20:02)
[2022-02-22 08:52] LABS: ALT 52 U/L (4-49); AST 46 U/L (17-59); African American GFR (CKD) >90 (>60 ml/min/1.73 sqM); Alkaline Phosphatase 172 U/L (38-126); Anion Gap 10 mmol/L; Blood Urea Nitrogen 12 mg/dL (9-20); Carbon Dioxide 23 mmol/L (22-30); Chloride 100 mmol/L (98-107); Glucose 99 mg/dL (74-99); Non-African American GFR(CKD) >90 (>60 ml/min/1.73 sqM); Potassium 4.3 mmol/L (3.5-5.1); Sodium 133 mmol/L (137-145); Total Bilirubin 0.9 mg/dL (0.2-1.3); Total Protein 5.7 g/dL (6.3-8.2)
[2022-02-22] MEDS: PANTOPRAZOLE 40 MG/10 ML VIAL IV SCH (08:56)
[2022-02-22] MEDS: METOPROLOL TARTRATE 12.5 MG TAB PO SCH ×2 (08:56→20:50)
[2022-02-22] MEDS: SODIUM CHLORIDE 0.9% 1,000 ML IV SCH (08:57)
[2022-02-22] MEDS ORDERED: AZITHROMYCIN 500 MG in SODIUM CHLORIDE 0.9% 250 ML IVPB SCH (09:00)
--- NOTE | 2022-02-22 09:04 | XR ---
EXAMINATION TYPE: XR chest 1V DATE OF EXAM: 02/22/2022 COMPARISON: Chest x-ray and CT 02/21/2022 HISTORY: Pleural effusion TECHNIQUE: Single frontal view of the chest is obtained. FINDINGS: There is abnormal increased attenuation at the right lung base, the right hemidiaphragm is obscured as on prior exam. Interstitial changes are again seen within the lungs. Heart is obscured. Prominence of the pulmonary artery could be indicative of pulmonary artery hypertension. Aorta is den se. There is no pneumothorax. There are overlying leads. There may be spinal curvature. IMPRESSION: Findings are similar to prior exam and consistent with patient's history of pleural effu varun. Possible interstitial lung disease, pulmonary artery hypertension. There is underlying emphysem a, mediastinal adenopathy.
--- NOTE | 2022-02-22 09:12 | P.PN ---
Subjective Progress Note Date: 02/22/22 Principal diagnosis: Pulmonary emboli Patient seen and examined sitting up at the bedside. No acute changes through the night. He is using his incentive spirometer. He is currently on 4 L nasal cannula, remains tachycardic. He is denying any shortness of breath while at rest, again mostly with exertion. Denies any chest pain. Still has some right sided chest wall discomfort. painting technician at bedside to perform echocardiogram. Yesterday patient underwent venous duplex of bilateral lower extremities which was negative for DVT. Objective - Vital Signs Vital signs: Vital Signs Temp 97.7 F 02/22/22 04:00 Pulse 112 H 02/22/22 07:50 Resp 18 02/22/22 07:50 BP 125/69 02/22/22 04:00 Pulse Ox 91 L 02/22/22 07:37 FiO2 Intake & Output 02/21/22 02/22/22 02/22/22 18:59 06:59 18:59 Intake Total 227.765 Balance 227.765 Weight 79.832 kg Intake: Intake, IV Titration 227.765 Amount Heparin Sod,Pork in 0.45% 227.765 NaCl 25,000 unit In 0.45 % NaCl 1 250ml.bag @ 18 UNITS/KG/HR 14.37 mls/hr IV .[id number] [facility] Rx#: [id number] Other: Voiding Method Toilet Urinal # Voids 1 - Exam General appearance: The patient is alert, oriented, appears in no acute distress. HET: Head is normocephalic and atraumatic. Neck: Supple. Heart: S1 S2. Regular rate and rhythm. Lungs: Diminished.. Abdomen: Soft, nontender, nondistended. Extremities: Normal skin color and turgor. Neurological: No focal deficits. Strength and sensation are grossly intact. - Labs CBC & Chem 7: 02/21/22 05:29 02/22/22 07:58 Labs: Abnormal Lab Results - Last 24 Hours (Table) 02/21/22 02/21/22 02/22/22 Range/Units 05:29 12:46 07:58 APTT 54.6 H (22.0-30.0) sec Sodium 133 L (137-145) mmol/L Creatinine 0.63 L (0.66-1.25) mg/dL Calcium 8.0 L (8.4-10.2) mg/dL ALT 52 H (4-49) U/L Alkaline Phosphatase 172 H (38-126) U/L Total Protein 5.7 L (6.3-8.2) g/dL Albumin 3.0 L (3.5-5.0) g/dL Procalcitonin 0.45 H (0.02-0.09) ng/mL 02/22/22 Range/Units 07:58 APTT 48.3 H (22.0-30.0) sec Sodium (137-145) mmol/L Creatinine (0.66-1.25) mg/dL Calcium (8.4-10.2) mg/dL ALT (4-49) U/L Alkaline Phosphatase (38-126) U/L Total Protein (6.3-8.2) g/dL Albumin (3.5-5.0) g/dL Procalcitonin (0.02-0.09) ng/mL Microbiology - Last 24 Hours (Table) 02/21/22 05:20 Blood Culture - Preliminary Blood No Growth after 24 hours Assessment and Plan Assessment: 1. Pulmonary emboli 2. Right pleural effusion 3. Hypoxia 4. Status post wedge resection and right lower lobe lobectomy 02/04/2022 5. 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 History of coronary artery disease status post stenting Plan: 1. Continue IV heparin, transition to oral anticoagulation per recommendations from oncology 2. Consult oncology for recommendations on oral anticoagulation and establish with patient 3. Echocardiogram pending 4. At this time there is no indication for any vascular surgical intervention 5. Patient is cleared to eat by Vascular surgery if cleared by other consultants Thank you for this consultation. The impression and plan of care has been dictated as directed. Dr. Bloom I performed a history and examination of this patient, discussed the same with the dictator. I agree with the dictator's note ,documented as a scribe. Any additional findings or plans will be noted.
--- NOTE | 2022-02-22 09:26 | P.PN ---
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 Previous tobacco dependence, COPD, occasional marijuana use, coronary artery disease with myocardial infarction status post drug-eluting stents to the LAD in June 2014, hypertension, hyperlipidemia, family history of premature coronary artery disease The patient was seen and examined sitting up in bed calmly cardiac stepdown unit in no acute distress with daughter at the bedside. Denies pain, states shortness of breath has improved. Remains in sinus rhythm and hemodynamically stable. Currently on 2 L nasal cannula with oxygen saturation 100%, able to achieve 2000 mL on his incentive spirometry. Lower extremity dopplers were negative for DVT. Patient remains on heparin IV. Was seen by oncology, will follow-up for oncological treatment. Patient has been ambulating in the room without difficulty. No other new concerns. Objective - Vital Signs Vital signs: Vital Signs Temp 97.7 F 02/22/22 04:00 Pulse 112 H 02/22/22 07:50 Resp 18 02/22/22 07:50 BP 125/69 02/22/22 04:00 Pulse Ox 91 L 02/22/22 07:37 FiO2 Intake & Output 02/21/22 02/22/22 02/22/22 18:59 06:59 18:59 Intake Total 227.765 Balance 227.765 Weight 79.832 kg Intake: Intake, IV Titration 227.765 Amount Heparin Sod,Pork in 0.45% 227.765 NaCl 25,000 unit In 0.45 % NaCl 1 250ml.bag @ 18 UNITS/KG/HR 14.37 mls/hr IV .[id number] [facility] Rx#: [id number] Other: Voiding Method Toilet Urinal # Voids 1 - Exam CONSTITUTIONAL: Appears comfortable, cooperative, no acute distress RESPIRATORY: Lungs sounds diminished bilaterally. Respirations even, nonlabored. Currently on 2 L nasal cannula with oxygen saturation 100%. Able to achieve 2000 mL on incentive spirometry. Strong cough. CARDIOVASCULAR: S1, S2 present. Regular rate and rhythm, sinus rhythm on telemetry. Palpable peripheral pulses bilaterally. No edema present. No calf pain or tenderness noted. SCDs present. GASTROINTESTINAL: Abdomen soft, nontender, nondistended. Active bowel sounds present 4 quadrants. Tolerating diet. GENITOURINARY: Continues to void clear, yellow urine INTEGUMENTARY: Skin is warm and dry with evidence of good perfusion. Thoracic incision well approximated without redness or drainage NEUROLOGIC: Cranial nerves II through XII intact MUSKULOSKELETAL: Able to move all extremities, strength equal bilaterally, gait normal PSYCHIATRIC: Alert and oriented to person place and time, appropriate affect, intact judgment and insight - Allied health notes Allied health notes reviewed: nursing - Labs CBC & Chem 7: 02/21/22 05:29 02/22/22 07:58 Labs: Abnormal Lab Results - Last 24 Hours (Table) 02/21/22 02/21/22 02/22/22 Range/Units 05:29 12:46 07:58 APTT 54.6 H (22.0-30.0) sec Sodium 133 L (137-145) mmol/L Creatinine 0.63 L (0.66-1.25) mg/dL Calcium 8.0 L (8.4-10.2) mg/dL ALT 52 H (4-49) U/L Alkaline Phosphatase 172 H (38-126) U/L Total Protein 5.7 L (6.3-8.2) g/dL Albumin 3.0 L (3.5-5.0) g/dL Procalcitonin 0.45 H (0.02-0.09) ng/mL Microbiology - Last 24 Hours (Table) 02/21/22 05:20 Blood Culture - Preliminary Blood No Growth after 24 hours - Imaging and Cardiology Chest x-ray: report reviewed, image reviewed Assessment and Plan Assessment: 1. Right-sided pulmonary embolus 2. Right-sided pleural effusion 3. Shortness of breath, chest pain secondary to above 4. Acute on chronic hypoxic respiratory failure, currently on home oxygen 5. 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 Previous tobacco dependence 7. COPD 8. Occasional marijuana use 9. Coronary artery disease with myocardial infarction status post drug-eluting stents to the LAD in June 2014 10. Hypertension 11. Hyperlipidemia 12. Family history of premature coronary artery disease Plan: 1. No surgical intervention planned from thoracic surgery standpoint. Patient may eat 2. Wean O2 as tolerated. Encourage incentive spirometry use 10 times every hour while awake 3. Continue anticoagulation, transition to oral prior to discharge. 4. Recommendations for thoracentesis per pulmonology 5. Cancer management per oncology 6. Will continue to follow while hospitalized although will not right daily notes. Please call us with any further questions 7. Medical management of the comorbidities per internal medicine
[2022-02-22 09:36] LABS: Basophils % (A) 0 %; Eosinophils # (A) 0.2 k/uL (0-0.7); Eosinophils % (A) 2 %; HCT 35.2 % (39.0-53.0); HGB 11.4 gm/dL (13.0-17.5); Hypochromasia Moderate; Lymphocytes # (A) 1.1 k/uL (1.0-4.8); Lymphocytes % (A) 11 %; MCH 31.4 pg (25.0-35.0); MCHC 32.3 g/dL (31.0-37.0); MCV 97.2 fL (80.0-100.0); Mean Platelet Volume 8.9; Monocytes # (A) 0.8 k/uL (0-1.0); Monocytes % (A) 8 %; Neutrophils # (A) 8.3 k/uL (1.3-7.7); Neutrophils % (A) 78 %; Platelet Count 336 k/uL (150-450); RBC 3.62 m/uL (4.30-5.90); RDW 14.4 % (11.5-15.5); WBC 10.6 k/uL (3.8-10.6)
--- NOTE | 2022-02-22 12:56 | P.PN ---
Subjective Progress Note Date: 02/22/22 Today's evaluation of 02/22/2022, the patient is still having some shortness of breath although less compared to yesterday. He seems to be breathing easier compared to yesterday. No chest pain. No pleurisy. He remains on IV heparin. His beaches for acute bouts of pulmonary embolism. He also developed a moderate-sized right-sided pleural effusion with some limited localization. This effusion was not present preoperatively and it developed postop. This is most likely a reactive effusion. Malignancy within the fluid is felt to be less likely. That was at 0.6 with a hemoglobin 11.4 and a platelet count of 336. PTT therapeutic. Respiratory electrolytes are all within normal limits. Pro-calcitonin levels of 0.46. Objective - Vital Signs Vital signs: Vital Signs Temp 97.9 F 02/22/22 08:00 Pulse 100 02/22/22 11:55 Resp 18 02/22/22 11:55 BP 104/64 02/22/22 08:00 Pulse Ox 95 02/22/22 08:00 FiO2 Intake & Output 02/21/22 02/22/22 02/22/22 18:59 06:59 18:59 Intake Total 227.765 Output Total 350 Balance 227.765 -350 Weight 79.832 kg Intake: Intake, IV Titration 227.765 Amount Heparin Sod,Pork in 0.45% 227.765 NaCl 25,000 unit In 0.45 % NaCl 1 250ml.bag @ 18 UNITS/KG/HR 14.37 mls/hr IV .[id number] [facility] Rx#: [id number] Output: Urine 350 Other: Voiding Method Toilet Urinal Urinal # Voids 1 - Exam CONSTITUTIONAL: Awake and alert, appears comfortable, cooperative, well- developed, well-nourished, no pain, no acute distress EYES: Pupils equal, round, reactive to light, normal ocular movement ENT: Moist mucous membranes without oral lesions present NECK: No masses, no bruits, trachea midline RESPIRATORY: Lungs sounds diminished bilaterally, right greater than left. Respirations even, nonlabored. Currently on 3 L nasal cannula. Strong cough. No chest wall deformities. CARDIOVASCULAR: S1, S2 present. Tachy but regular rate and rhythm, sinus tach on telemetry. Palpable peripheral pulses bilaterally. No edema present. No calf pain or tenderness noted. GASTROINTESTINAL: Abdomen soft, nontender, nondistended without masses or organomegaly noted. There is no rebound or guarding present. Active bowel sounds present 4 quadrants. GENITOURINARY: Deferred INTEGUMENTARY: Skin is warm and dry with evidence of good perfusion. Right thoracotomy incision well healed NEUROLOGIC: Cranial nerves II through XII intact, normal coordination, no obvious motor or sensory deficits, speech is normal MUSKULOSKELETAL: Able to move all extremities, strength equal bilaterally, normal posture PSYCHIATRIC: Alert and oriented to person place and time, appropriate affect, intact judgment and insight - Labs CBC & Chem 7: 02/22/22 07:58 02/22/22 07:58 Labs: Abnormal Lab Results - Last 24 Hours (Table) 02/21/22 02/22/22 02/22/22 Range/Units 12:46 07:58 07:58 RBC 3.62 L (4.30-5.90) m/uL Hgb 11.4 L (13.0-17.5) gm/dL Hct 35.2 L (39.0-53.0) % Neutrophils # 8.3 H (1.3-7.7) k/uL APTT 54.6 H (22.0-30.0) sec Sodium 133 L (137-145) mmol/L Creatinine 0.63 L (0.66-1.25) mg/dL Calcium 8.0 L (8.4-10.2) mg/dL ALT 52 H (4-49) U/L Alkaline Phosphatase 172 H (38-126) U/L Total Protein 5.7 L (6.3-8.2) g/dL Albumin 3.0 L (3.5-5.0) g/dL 02/22/22 Range/Units 07:58 RBC (4.30-5.90) m/uL Hgb (13.0-17.5) gm/dL Hct (39.0-53.0) % Neutrophils # (1.3-7.7) k/uL APTT 48.3 H (22.0-30.0) sec Sodium (137-145) mmol/L Creatinine (0.66-1.25) mg/dL Calcium (8.4-10.2) mg/dL ALT (4-49) U/L Alkaline Phosphatase (38-126) U/L Total Protein (6.3-8.2) g/dL Albumin (3.5-5.0) g/dL Microbiology - Last 24 Hours (Table) 02/21/22 05:20 Blood Culture - Preliminary Blood No Growth after 24 hours Assessment and Plan Plan: Acute bilateral pulmonary embolism post thoracotomy and right lower lobe resection. The patient remains on IV heparin. Patient is therapeutic. Doppler of the lower extremity was done and there is no evidence of DVT Acute shortness of breath secondary to pulmonary embolism Acute hypoxic respiratory failure secondary to above Lung cancer a combination of non-small cell lung cancer , squamous cell carcinoma of the lung, T3 N0 M0 and limited stage small cell lung cancer COPD Right-sided pleural effusion, post thoracotomy History of smoking. His marijuana use History of coronary artery disease with previous AK and previous coronary stenting of the LAD Hypertension Hyperlipidemia Plan Supplement this patient with O2 to maintain a saturation above 90% Stop IV heparin for 45 minutes and this needs to be followed up by thoracentesis of the right lung for diagnostic and therapeutic versus Doppler of the lower extremity was negative Echo of the heart is still pending Continue bronchodilators and use of incentive spirometer Surgical one-sided dry clean and intact We'll continue to follow
[2022-02-22] MEDS ORDERED: LIDOCAINE 1% INJ 10MG/ML (20 ML MDV) ONE (14:40)
--- NOTE | 2022-02-22 14:51 | P.PCN ---
Date of Procedure: 02/22/22 Preoperative Diagnosis: Right-sided pleural effusion Postoperative Diagnosis: Right-sided pleural effusion, suspect chylothorax Procedure(s) Performed: Right-sided thoracentesis Anesthesia: MAC Surgeon: Lisa Barnes Estimated Blood Loss (ml): 0 Pathology: other Condition: stable Disposition: floor Operative Findings: A time out was performed and the chest x-ray was reviewed, the appropriate side was confirmed and marked. My hands were washed immediately prior to the procedure. I wore a surgical cap, mask with protective eyewear, sterile gown and sterile gloves throughout the procedure. The patient was prepped and draped in a sterile manner using chlorhexidine scrub after the appropriate level was percussed and confirmed by ultrasound. 1% lidocaine was used to anesthesize the skin, subcutaneous tissue, superior aspect of the rib periosteum and parietal pleura. A finder needle was then introduced over the superior aspect of the rib to locate the pleural fluid; 2colored fluid was aspirated at a depth of approximately 2 cm. A 10-blade scalpel was used to candido the skin at the insertion site. The [id number] needle was then introduced through the skin incision into the pleural space using negative aspiration pressure and the red colometric indicator to confirm appropriate positioning of the needle. The thoracentesis catheter was then threaded without difficulty. 650 ml of turbid milky, CREAMY color fluid was aspirated and this was suggestive of chylothorax and the fluid was removed without difficulty. The catheter was then removed. No immediate complications were noted during the procedure. A post-procedure chest x-ray is pending at the time of this note. The fluid will be sent for studies. Estimated blood loss is 0cc
--- NOTE | 2022-02-22 15:18 | XR ---
EXAMINATION TYPE: XR chest 1V DATE OF EXAM: 02/22/2022 COMPARISON: Prior chest x-ray same dated earlier time HISTORY: Status post thoracentesis TECHNIQUE: Single frontal view of the chest is obtained. FINDINGS: There may be some slight interval improved aeration at right lung base. No evident pneumot horax. No other interval change. IMPRESSION: No evident complication status post thoracentesis.
[2022-02-22] MEDS: HEPARIN SOD,PORK IN 0.45% NACL 25,000 UNIT in 0.45% NACL 1 250ML.BAG IV SCH (20:48)
[2022-02-22] MEDS: HYDROcodone/APAP 5-325MG 1 EACH TAB PO PRN (20:49)
[2022-02-22] MEDS: ATORVASTATIN 80 MG TAB PO SCH (20:49)
[2022-02-23 06:14] LABS: Cholesterol,Body Fluid 93 mg/dL; Glucose, Body Fluid 13 mg/dL; Total Protein, Body Fluid 4220 mg/dL
[2022-02-23 07:01] LABS: Appearance,BF Turbid
[2022-02-23] MEDS: SYMBICORT 80-4.5 MCG INHALER INHALATION SCH ×2 (08:00→20:36)
[2022-02-23] MEDS: IPRATROPIUM 0.5 MG/2.5 ML NEBU INHALATION SCH ×4 (08:00→20:36)
[2022-02-23] MEDS: SODIUM CHLORIDE 0.9% 1,000 ML IV SCH (08:02)
[2022-02-23] MEDS: PANTOPRAZOLE 40 MG/10 ML VIAL IV SCH (09:24)
[2022-02-23] MEDS: METOPROLOL TARTRATE 12.5 MG TAB PO SCH ×2 (09:24→20:05)
--- NOTE | 2022-02-23 09:59 | P.PN ---
Subjective Progress Note Date: 02/23/22 Principal diagnosis: Pulmonary emboli Should seen and examined today as a follow-up for pulmonary emboli in the right lower lobe. Yesterday patient underwent thoracentesis for right pleural effusion, with suspected chylothorax per procedure note. Today patient states he is feeling better, breathing easier, low shortness of breath. Patient is afebrile. He remains on 4 L of nasal cannula with oxygen saturation between 91 and 98%. Yesterday he underwent echocardiogram, with findings of RS BP 92 mmHg, moderate to severe right ventricular dilation, severe pulmonary hypertension. EF 55%. Again this is all likely related to severe pulmonary hypertension versus heart strain. Objective - Vital Signs Vital signs: Vital Signs Temp 98.0 F 02/23/22 04:00 Pulse 90 02/23/22 08:11 Resp 16 02/23/22 04:00 BP 105/67 02/23/22 04:00 Pulse Ox 91 L 02/23/22 04:00 FiO2 Intake & Output 02/22/22 02/23/22 02/23/22 18:59 06:59 18:59 Intake Total 523.106 51.934 240 Output Total 350 Balance 173.106 51.934 240 Weight 78.5 kg Intake: IV 115.04 Heparin Sod,Pork in 0.45% 115.04 NaCl 25,000 unit In 0.45 % NaCl 1 250ml.bag @ 18 UNITS/KG/HR 14.37 mls/hr IV .[id number] [facility] Rx#: [id number] Intake, IV Titration 408.066 51.934 Amount Heparin Sod,Pork in 0.45% 198.066 51.934 NaCl 25,000 unit In 0.45 % NaCl 1 250ml.bag @ 18 UNITS/KG/HR 14.37 mls/hr IV .[id number] [facility] Rx#: [id number] Sodium Chloride 0.9% 1, 160 000 ml @ 20 mls/hr IV . Q24H [facility] Rx#:[id number] cefTRIAXone 1 gm In 50 Sodium Chloride 0.9% 50 ml @ 100 mls/hr IVPB Q12HR [facility] Rx#:[id number] Oral 240 Output: Urine 350 Other: Voiding Method Urinal Urinal # Voids 1 - Exam General appearance: The patient is alert, oriented, appears in no acute distress. HET: Head is normocephalic and atraumatic. Neck: Supple. Heart: S1 S2. Regular rate and rhythm. Lungs: Clear to auscultation, diminished right lower lobe Abdomen: Soft, nontender, nondistended. Extremities: Normal skin color and turgor. Neurological: No focal deficits. Strength and sensation are grossly intact. - Labs CBC & Chem 7: 02/22/22 07:58 02/22/22 07:58 Labs: Microbiology - Last 24 Hours (Table) 02/21/22 05:20 Blood Culture - Preliminary Blood No Growth after 48 hours 02/22/22 14:47 Body Fluid Culture - Preliminary Pleural Fluid Assessment and Plan Assessment: 1. Pulmonary emboli 2. Right pleural effusion 3. Hypoxia 4. Status post wedge resection and right lower lobe lobectomy 02/04/2022 5. 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 History of coronary artery disease status post stenting Plan: 1. May transition to oral anticoagulation per recommendations from oncology once cleared by pulmonology and cardiothoracic surgery 2. Oncology on consultation 3. Echocardiogram reviewed 4. At this time there is no indication for any vascular surgical intervention Thank you for this consultation. The impression and plan of care has been dictated as directed. Dr. Petersen I performed a history and examination of this patient, discussed the same with the dictator. I agree with the dictator's note ,documented as a scribe. Any additional findings or plans will be noted.
[2022-02-23 10:03] LABS: Basophils # (A) 0.1 k/uL (0-0.2); Basophils % (A) 1 %; Eosinophils # (A) 0.2 k/uL (0-0.7); Eosinophils % (A) 2 %; HCT 33.8 % (39.0-53.0); HGB 10.5 gm/dL (13.0-17.5); Hypochromasia Marked; Lymphocytes # (A) 1.1 k/uL (1.0-4.8); Lymphocytes % (A) 12 %; MCH 30.8 pg (25.0-35.0); MCHC 31.2 g/dL (31.0-37.0); MCV 98.8 fL (80.0-100.0); Mean Platelet Volume 8.3; Monocytes # (A) 0.6 k/uL (0-1.0); Monocytes % (A) 7 %; Neutrophils # (A) 7.2 k/uL (1.3-7.7); Neutrophils % (A) 77 %; Platelet Count 336 k/uL (150-450); RBC 3.42 m/uL (4.30-5.90); RDW 14.6 % (11.5-15.5); WBC 9.5 k/uL (3.8-10.6)
[2022-02-23 10:31] LABS: African American GFR (CKD) >90 (>60 ml/min/1.73 sqM); Anion Gap 9 mmol/L; Blood Urea Nitrogen 15 mg/dL (9-20); Calcium 7.7 mg/dL (8.4-10.2); Carbon Dioxide 22 mmol/L (22-30); Chloride 101 mmol/L (98-107); Glucose 117 mg/dL (74-99); Non-African American GFR(CKD) >90 (>60 ml/min/1.73 sqM); Sodium 132 mmol/L (137-145)
--- NOTE | 2022-02-23 12:45 | P.PN ---
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 Previous tobacco dependence, COPD, occasional marijuana use, coronary artery disease with myocardial infarction s tatus post drug-eluting stents to the LAD in June 2014, hypertension, hyperlipidemia, family history of premature coronary artery disease. POD #1 right-sided thoracentesis with 650 mL of turbid milky, creamy colored fluid drained by Dr. Barnes. The patient was seen and examined in follow-up today 02/23/2022 at the bedside on the cardiac stepdown unit. Currently he is sitting up to the bedside edge, is eating his lunch, is awake, alert, oriented 3 and is in no acute apparent distress. Oxygen saturation are 95% on 4 L nasal cannula and he is achieving 2250 mL on his incentive spirometry with encouragement. Yesterday he underwent a right-sided thoracentesis completed by Dr. Barnes with 650 mL of turbid milky, creamy drainage drained. This was suspected for chylothorax and we are waiting triglyceride levels. He has been placed on a no fat diet. Remote telemetry showing sinus tachycardia heart rate 101 BPM. He has been afebrile for last 24 hours. Laboratory results this morning show a WBC count of 9.5, hemoglobin 10.5, hematocrit 33.8, platelets 336, PTT 37.5, sodium 132, potassium 4.0, BUN 15, creatinine 0.68, glucose 117, and calcium 7.7. He remains on heparin drip per protocol. Objective - Vital Signs Vital signs: Vital Signs Temp 96.8 F L 02/23/22 09:20 Pulse 90 02/23/22 12:02 Resp 16 02/23/22 11:55 BP 112/61 02/23/22 11:55 Pulse Ox 95 02/23/22 11:55 FiO2 Intake & Output 02/22/22 02/23/22 02/23/22 18:59 06:59 18:59 Intake Total 523.106 51.934 240 Output Total 350 Balance 173.106 51.934 240 Weight 78.5 kg Intake: IV 115.04 Heparin Sod,Pork in 0.45% 115.04 NaCl 25,000 unit In 0.45 % NaCl 1 250ml.bag @ 18 UNITS/KG/HR 14.37 mls/hr IV .[id number] [facility] Rx#: [id number] Intake, IV Titration 408.066 51.934 Amount Heparin Sod,Pork in 0.45% 198.066 51.934 NaCl 25,000 unit In 0.45 % NaCl 1 250ml.bag @ 18 UNITS/KG/HR 14.37 mls/hr IV .[id number] [facility] Rx#: [id number] Sodium Chloride 0.9% 1, 160 000 ml @ 20 mls/hr IV . Q24H [facility] Rx#:[id number] cefTRIAXone 1 gm In 50 Sodium Chloride 0.9% 50 ml @ 100 mls/hr IVPB Q12HR [facility] Rx#:[id number] Oral 240 Output: Urine 350 Other: Voiding Method Urinal Urinal # Voids 1 1 - Exam CONSTITUTIONAL: Sitting up to the bedside edge on the cardiac stepdown unit, appears comfortable, cooperative, no apparent acute distress. HEENT: Neck is supple, no JVD, no lymphadenopathy. RESPIRATORY: Lungs sounds essentially clear throughout, diminished to his bilateral bases, right greater than left. Respirations are symmetrical and nonlabored. Currently on 4 L nasal cannula with oxygen saturations 95%. Able to achieve 2250 mL on his incentive spirometry. Strong cough. CARDIOVASCULAR: Regular rhythm and rate. S1 and S2 present, negative for S3, gallop or murmur. Sternum is stable. Palpable peripheral pulses bilaterally, No calf pain or tenderness noted. GASTROINTESTINAL: Abdomen soft, nontender, nondistended. Active bowel sounds present 4 quadrants. Tolerating diet. Passing flatus. No guarding or rigidity. GENITOURINARY: Continues to void. INTEGUMENTARY: Skin is warm and dry with no evidence of clubbing or cyanosis. Right-sided thoracotomy incision, clean, dry and approximated. No drainage or redness is present. NEUROLOGIC: Cranial nerves II through XII intact. No focal deficits. MUSKULOSKELETAL: Able to move all extremities, strength equal bilaterally, generalized weakness. PSYCHIATRIC: Alert and oriented to person place and time, appropriate affect, intact judgment and insight. - Allied health notes Allied health notes reviewed: nursing - Labs CBC & Chem 7: 02/23/22 09:12 02/23/22 09:12 Labs: Abnormal Lab Results - Last 24 Hours (Table) 02/23/22 02/23/22 02/23/22 Range/Units 09:12 09:12 09:12 RBC 3.42 L (4.30-5.90) m/uL Hgb 10.5 L (13.0-17.5) gm/dL Hct 33.8 L (39.0-53.0) % APTT 37.5 H (22.0-30.0) sec Sodium 132 L (137-145) mmol/L Glucose 117 H (74-99) mg/dL Calcium 7.7 L (8.4-10.2) mg/dL Microbiology - Last 24 Hours (Table) 02/21/22 05:20 Blood Culture - Preliminary Blood No Growth after 48 hours 02/22/22 14:47 Body Fluid Culture - Preliminary Pleural Fluid Assessment and Plan Assessment: 1. Right-sided pulmonary embolus 2. Right-sided pleural effusion, possible chylothorax, status post right-sided thoracentesis with 650 mL of milky, turbid, creamy pleural fluid drained by Dr. Barnes 3. Shortness of breath, chest pain secondary to above 4. Acute on chronic hypoxic respiratory failure, currently on home oxygen 5. 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 Previous tobacco dependence 7. COPD 8. Occasional marijuana use 9. Coronary artery disease with myocardial infarction status post drug-eluting stents to the LAD in June 2014 10. Hypertension 11. Hyperlipidemia 12. Family history of premature coronary artery disease Plan: 1. No surgical intervention planned from thoracic surgery standpoint. 2. Wean O2 as tolerated. Encourage incentive spirometry use 10 times every hour while awake. 3. Continue heparin drip per protocol, transition to oral prior to discharge. 4. If right-sided pleural effusion reaccumulated's, may need a right-sided pigtail catheter placed if the fluid comes back positive for chylothorax. Pleural fluid triglyceride level remains pending. 5. Cancer management per oncology recommendations. MRI of the brain pending. 6. Will continue to follow while hospitalized although will not write daily notes. Please call us with any further questions. 7. He will be placed on a no fat diet. Discussed with dietitian and the patient. 8. Medical management of the comorbidities per internal medicine, and other consultants. 9. Continue to monitor her daily chest x-rays. 10. More recommendations to follow based on patient's clinical course. Time with Patient: Greater than 30
--- NOTE | 2022-02-23 12:52 | P.PN ---
Subjective Progress Note Date: 02/23/22 Today's evaluation of 02/22/2022, the patient is still having some shortness of breath although less compared to yesterday. He seems to be breathing easier compared to yesterday. No chest pain. No pleurisy. He remains on IV heparin. His [place] for acute bouts of pulmonary embolism. He also developed a moderate-sized right-sided pleural effusion with some limited localization. This effusion was not present preoperatively and it developed postop. This is most likely a reactive effusion. Malignancy within the fluid is felt to be less likely. That was at 0.6 with a hemoglobin 11.4 and a platelet count of 336. PTT therapeutic. Respiratory electrolytes are all within normal limits. Pro-calcitonin levels of 0.46. Today's evaluation of 02/23/2022, the patient is feeling better. I performed a thoracentesis on this patient yesterday and the fluid was milky consistent with chylothorax. The fluid cholesterol level is elevated. Awaiting for triglycerides. Meanwhile, the patient is feeling much better. He was given advice to eliminate fats from his diet and dietary advice was given. He is on IV heparin. He'll be switched to oral anticoagulants with liquids. Overall, is doing better. Is using this in the spirometer. Surgical wound site dry clean and intact. He has some occasional limited cough and congestion. He is active. He is tolerating foods. Objective - Vital Signs Vital signs: Vital Signs Temp 96.8 F L 02/23/22 09:20 Pulse 90 02/23/22 12:02 Resp 16 02/23/22 11:55 BP 112/61 02/23/22 11:55 Pulse Ox 95 02/23/22 11:55 FiO2 Intake & Output 02/22/22 02/23/22 02/23/22 18:59 06:59 18:59 Intake Total 523.106 51.934 240 Output Total 350 Balance 173.106 51.934 240 Weight 78.5 kg Intake: IV 115.04 Heparin Sod,Pork in 0.45% 115.04 NaCl 25,000 unit In 0.45 % NaCl 1 250ml.bag @ 18 UNITS/KG/HR 14.37 mls/hr IV .[id number] [facility] Rx#: [id number] Intake, IV Titration 408.066 51.934 Amount Heparin Sod,Pork in 0.45% 198.066 51.934 NaCl 25,000 unit In 0.45 % NaCl 1 250ml.bag @ 18 UNITS/KG/HR 14.37 mls/hr IV .[id number] [facility] Rx#: [id number] Sodium Chloride 0.9% 1, 160 000 ml @ 20 mls/hr IV . Q24H [facility] Rx#:[id number] cefTRIAXone 1 gm In 50 Sodium Chloride 0.9% 50 ml @ 100 mls/hr IVPB Q12HR [facility] Rx#:[id number] Oral 240 Output: Urine 350 Other: Voiding Method Urinal Urinal # Voids 1 1 - Exam CONSTITUTIONAL: Awake and alert, appears comfortable, cooperative, well- developed, well-nourished, no pain, no acute distress EYES: Pupils equal, round, reactive to light, normal ocular movement ENT: Moist mucous membranes without oral lesions present NECK: No masses, no bruits, trachea midline RESPIRATORY: Lungs sounds diminished bilaterally, right greater than left. Respirations even, nonlabored. Currently on 3 L nasal cannula. Strong cough. No chest wall deformities. CARDIOVASCULAR: S1, S2 present. Tachy but regular rate and rhythm, sinus tach on telemetry. Palpable peripheral pulses bilaterally. No edema present. No calf pain or tenderness noted. GASTROINTESTINAL: Abdomen soft, nontender, nondistended without masses or organomegaly noted. There is no rebound or guarding present. Active bowel sounds present 4 quadrants. GENITOURINARY: Deferred INTEGUMENTARY: Skin is warm and dry with evidence of good perfusion. Right thoracotomy incision well healed NEUROLOGIC: Cranial nerves II through XII intact, normal coordination, no obvious motor or sensory deficits, speech is normal MUSKULOSKELETAL: Able to move all extremities, strength equal bilaterally, normal posture PSYCHIATRIC: Alert and oriented to person place and time, appropriate affect, intact judgment and insight - Labs CBC & Chem 7: 02/23/22 09:12 02/23/22 09:12 Labs: Abnormal Lab Results - Last 24 Hours (Table) 02/23/22 02/23/22 02/23/22 Range/Units 09:12 09:12 09:12 RBC 3.42 L (4.30-5.90) m/uL Hgb 10.5 L (13.0-17.5) gm/dL Hct 33.8 L (39.0-53.0) % APTT 37.5 H (22.0-30.0) sec Sodium 132 L (137-145) mmol/L Glucose 117 H (74-99) mg/dL Calcium 7.7 L (8.4-10.2) mg/dL Microbiology - Last 24 Hours (Table) 02/21/22 05:20 Blood Culture - Preliminary Blood No Growth after 48 hours 02/22/22 14:47 Body Fluid Culture - Preliminary Pleural Fluid Assessment and Plan Plan: Acute bilateral pulmonary embolism post thoracotomy and right lower lobe resection. The patient is currently on IV heparin Right-sided pleural effusion/chylothorax is highly suspected Acute shortness of breath secondary to pulmonary embolism and pleural effusion, improved with treatment Acute hypoxic respiratory failure secondary to above, currently on 2 L of 02 nasal cannula Lung cancer a combination of non-small cell lung cancer , squamous cell carcinoma of the lung (T3 N0 M0) and limited stage small cell lung cancer COPD History of smoking. His marijuana use History of coronary artery disease with previous CO and previous coronary stenting of the LAD Hypertension Hyperlipidemia Plan Supplement this patient with O2 to maintain a saturation above 90% Discharge fat from the diet regarding chylothorax discontinue the IV heparin and put the patient Eliquis 10 mg by mouth twice a day Doppler of the lower extremity was negative Echo of the heart is still pending Continue bronchodilators and use of incentive spirometer Surgical one-sided dry clean and intact We'll continue to follow
--- NOTE | 2022-02-23 13:30 | P.PN ---
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 He is able to ambulate longer distances without dyspnea Objective - Vital Signs Vital signs: Vital Signs Temp 96.8 F L 02/23/22 09:20 Pulse 90 02/23/22 12:02 Resp 16 02/23/22 11:55 BP 112/61 02/23/22 11:55 Pulse Ox 95 02/23/22 11:55 FiO2 Intake & Output 02/22/22 02/23/22 02/23/22 18:59 06:59 18:59 Intake Total 523.106 51.934 240 Output Total 350 Balance 173.106 51.934 240 Weight 78.5 kg Intake: IV 115.04 Heparin Sod,Pork in 0.45% 115.04 NaCl 25,000 unit In 0.45 % NaCl 1 250ml.bag @ 18 UNITS/KG/HR 14.37 mls/hr IV .[id number] [facility] Rx#: [id number] Intake, IV Titration 408.066 51.934 Amount Heparin Sod,Pork in 0.45% 198.066 51.934 NaCl 25,000 unit In 0.45 % NaCl 1 250ml.bag @ 18 UNITS/KG/HR 14.37 mls/hr IV .[id number] [facility] Rx#: [id number] Sodium Chloride 0.9% 1, 160 000 ml @ 20 mls/hr IV . Q24H [facility] Rx#:[id number] cefTRIAXone 1 gm In 50 Sodium Chloride 0.9% 50 ml @ 100 mls/hr IVPB Q12HR [facility] Rx#:[id number] Oral 240 Output: Urine 350 Other: Voiding Method Urinal Urinal # Voids 1 1 - Constitutional General appearance: Present: average body habitus, cooperative, no acute distress - EENT Eyes: Present: EOMI - Respiratory Details: Increased breath sounds at the right lung base - Cardiovascular Rhythm: regular - Gastrointestinal General gastrointestinal: Present: normal bowel sounds. Absent: distended, tenderness - Integumentary Integumentary: Absent: rash - Neurologic Neurologic: Present: CNII-XII intact - Psychiatric Psychiatric: Present: A&O x's 3, intact judgment & insight - Labs CBC & Chem 7: 02/23/22 09:12 02/23/22 09:12 Labs: Abnormal Lab Results - Last 24 Hours (Table) 02/23/22 02/23/22 02/23/22 Range/Units 09:12 09:12 09:12 RBC 3.42 L (4.30-5.90) m/uL Hgb 10.5 L (13.0-17.5) gm/dL Hct 33.8 L (39.0-53.0) % APTT 37.5 H (22.0-30.0) sec Sodium 132 L (137-145) mmol/L Glucose 117 H (74-99) mg/dL Calcium 7.7 L (8.4-10.2) mg/dL Microbiology - Last 24 Hours (Table) 02/21/22 05:20 Blood Culture - Preliminary Blood No Growth after 48 hours 02/22/22 14:47 Body Fluid Culture - Preliminary Pleural Fluid Assessment and Plan Assessment: Mr. Hernandez is a 61-year-old gentleman with a past medical history significant for smoking, COPD, CAD c/b [place], and recently diagnosed limited stage small cell lung cancer with mixed squamous cell histology presenting with progressive dyspnea on exertion and at rest found to have pulmonary emboli and large loculated right pleural effusion. (1) Right pulmonary embolus Current Visit: Yes Status: Acute Code(s): I26.99 - OTHER PULMONARY EMBOLISM WITHOUT ACUTE COR PULMONALE SNOMED Code(s): 96610314 (2) Pleural effusion, right Current Visit: Yes Status: Acute Code(s): J90 - PLEURAL EFFUSION, NOT ELSEWHERE CLASSIFIED SNOMED Code(s): 03658698 (3) Small cell lung cancer Current Visit: Yes Status: Acute Code(s): C34.90 - MALIGNANT NEOPLASM OF UNSP PART OF UNSP BRONCHUS OR LUNG SNOMED Code(s): 648763130 Plan: #Pulmonary embolism -2 risk factors for pulmonary embolism include recent right lower lobe lobectomy with right resection and mediastinoscopy along with known malignancy. He has not been smoking since his procedure on 02/04/2022 -He does not have any evidence of right heart strain radiographically, but does have tachycardia with supplementary oxygen use -Doppler of lower extremities negative for DVT -Agree with heparin drip at this time, can transition to oral eliquis if no further interventions are being planned -He will require indefinite anticoagulation at least during the duration of his treatment #Large right pleural effusion -Noted on CTA, which is new from prior CT chest on 01/11/2022 -He has no clinical signs or symptoms of infection currently -Thoracentesis on 02/22/22 consistent with 650 cc of chylothorax -This is likely secondary to recent thoracic surgery, malignancy is also possible -Follow up with pulmonology if additional procedures are planned at this time -If not, he can be transitioned to oral Eliquis #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 9 mm nodule seen at that time and the ipsilateral right lower lobe was not SUV avid with no SUV avid lymph nodes -Right lower lobe lobectomy along with additional wedge resection and mediastinal lymph node dissection performed on 02/04/2022 revealed 2 synchronous tumors with the largest measuring 3.5 cm both consistent with small cell lung cancer with foci of moderately differentiated squamous cell carcinoma -2 lymph nodes at R12 and station 7 were positive for small cell carcinoma -He currently has stage IIIB ([id number]) limited stage small cell lung cancer -Brain MRI ordered today to complete staging #Neutrophilic leukocytosis -Likely reactive secondary to pulmonary embolism, less likely secondary to i nfection -Has resolved on today's CBC
--- NOTE | 2022-02-23 13:30 | P.PN ---
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 He is able to ambulate longer distances without dyspnea Objective - Vital Signs Vital signs: Vital Signs Temp 96.8 F L 02/23/22 09:20 Pulse 90 02/23/22 12:02 Resp 16 02/23/22 11:55 BP 112/61 02/23/22 11:55 Pulse Ox 95 02/23/22 11:55 FiO2 Intake & Output 02/22/22 02/23/22 02/23/22 18:59 06:59 18:59 Intake Total 523.106 51.934 240 Output Total 350 Balance 173.106 51.934 240 Weight 78.5 kg Intake: IV 115.04 Heparin Sod,Pork in 0.45% 115.04 NaCl 25,000 unit In 0.45 % NaCl 1 250ml.bag @ 18 UNITS/KG/HR 14.37 mls/hr IV .[id number] [facility] Rx#: [id number] Intake, IV Titration 408.066 51.934 Amount Heparin Sod,Pork in 0.45% 198.066 51.934 NaCl 25,000 unit In 0.45 % NaCl 1 250ml.bag @ 18 UNITS/KG/HR 14.37 mls/hr IV .[id number] [facility] Rx#: [id number] Sodium Chloride 0.9% 1, 160 000 ml @ 20 mls/hr IV . Q24H [facility] Rx#:[id number] cefTRIAXone 1 gm In 50 Sodium Chloride 0.9% 50 ml @ 100 mls/hr IVPB Q12HR [facility] Rx#:[id number] Oral 240 Output: Urine 350 Other: Voiding Method Urinal Urinal # Voids 1 1 - Constitutional General appearance: Present: average body habitus, cooperative, no acute distress - EENT Eyes: Present: EOMI - Respiratory Details: Increased breath sounds at the right lung base - Cardiovascular Rhythm: regular - Gastrointestinal General gastrointestinal: Present: normal bowel sounds. Absent: distended, tenderness - Integumentary Integumentary: Absent: rash - Neurologic Neurologic: Present: CNII-XII intact - Psychiatric Psychiatric: Present: A&O x's 3, intact judgment & insight - Labs CBC & Chem 7: 02/23/22 09:12 02/23/22 09:12 Labs: Abnormal Lab Results - Last 24 Hours (Table) 02/23/22 02/23/22 02/23/22 Range/Units 09:12 09:12 09:12 RBC 3.42 L (4.30-5.90) m/uL Hgb 10.5 L (13.0-17.5) gm/dL Hct 33.8 L (39.0-53.0) % APTT 37.5 H (22.0-30.0) sec Sodium 132 L (137-145) mmol/L Glucose 117 H (74-99) mg/dL Calcium 7.7 L (8.4-10.2) mg/dL Microbiology - Last 24 Hours (Table) 02/21/22 05:20 Blood Culture - Preliminary Blood No Growth after 48 hours 02/22/22 14:47 Body Fluid Culture - Preliminary Pleural Fluid Assessment and Plan Assessment: Mr. Hernandez is a 61-year-old gentleman with a past medical history significant for smoking, COPD, CAD c/b RI, and recently diagnosed limited stage small cell lung cancer with mixed squamous cell histology presenting with progressive dyspnea on exertion and at rest found to have pulmonary emboli and large loculated right pleural effusion. (1) Right pulmonary embolus Current Visit: Yes Status: Acute Code(s): I26.99 - OTHER PULMONARY EMBOLISM WITHOUT ACUTE COR PULMONALE SNOMED Code(s): 33573203 (2) Pleural effusion, right Current Visit: Yes Status: Acute Code(s): J90 - PLEURAL EFFUSION, NOT ELSEWHERE CLASSIFIED SNOMED Code(s): 62498422 (3) Small cell lung cancer Current Visit: Yes Status: Acute Code(s): C34.90 - MALIGNANT NEOPLASM OF UNSP PART OF UNSP BRONCHUS OR LUNG SNOMED Code(s): 863726862 Plan: #Pulmonary embolism -2 risk factors for pulmonary embolism include recent right lower lobe lobectomy with right resection and mediastinoscopy along with known malignancy. He has not been smoking since his procedure on 02/04/2022 -He does not have any evidence of right heart strain radiographically, but does have tachycardia with supplementary oxygen use -Doppler of lower extremities negative for DVT -Agree with heparin drip at this time, can transition to oral eliquis if no further interventions are being planned -He will require indefinite anticoagulation at least during the duration of his treatment #Large right pleural effusion -Noted on CTA, which is new from prior CT chest on 01/11/2022 -He has no clinical signs or symptoms of infection currently -Thoracentesis on 02/22/22 consistent with 650 cc of chylothorax -This is likely secondary to recent thoracic surgery, malignancy is also possible -Follow up with pulmonology if additional procedures are planned at this time -If not, he can be transitioned to oral Eliquis #Mixed histology small cell lung cancer and squamous cell carcinoma -He does have history of smoking cigarettes and cigars for 50 years along with 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 9 mm nodule seen at that time and the ipsilateral right lower lobe was not SUV avid with no SUV avid lymph nodes -Right lower lobe lobectomy along with additional wedge resection and mediastinal lymph node dissection performed on 02/04/2022 revealed 2 synchronous tumors with the largest measuring 3.5 cm both consistent with small cell lung cancer with foci of moderately differentiated squamous cell carcinoma -2 lymph nodes at R12 and station 7 were positive for small cell carcinoma -He currently has stage IIIB ([id number]) limited stage small cell lung cancer -Brain MRI ordered today to complete staging #Neutrophilic leukocytosis -Likely reactive secondary to pulmonary embolism, less likely secondary to i nfection -Has resolved on today's CBC
--- NOTE | 2022-02-23 13:43 | CA ---
Transthoracic Echo Report Name: Santiago Hernandez Age: 61 Gender: M : 1960 Exam Date: 02/22/2022 08:37 Exam Location: [facility] Ht (in): 62 Wt (lb): 176 Ordering Physician: Jorge Talamantes DO Attending/Referring Phys: [id number], Albin Stucco Mason Fannie Faria RDCS Procedure CPT: Indications: PE Cardiac Hx: Technical Quality: Fair Contrast 1: Total Dose (mL): Contrast 2: Total Dose (mL): MEASUREMENTS (Male / Female) Normal Values 2D ECHO RV Internal Dim ED PLAX 3.2 cm M-MODE Aortic Root Diameter MM 2.9 cm LA Systolic Diameter MM 2.8 cm LA Ao Ratio MM 1.0 AV Cusp Separation MM 1.7 cm DOPPLER MV Area PHT 3.0 cm??? Mitral E Point Velocity 74.5 cm/s Mitral A Point Velocity 95.5 cm/s Mitral E to A Ratio 0.8 MV Deceleration Time 249.9 ms TR Peak Velocity 472.6 cm/s TR Peak Gradient 89.4 mmHg Right Ventricular Systolic Press 92.0 mmHg FINDINGS Left Ventricle Left ventricular ejection fraction is estimated at 55%. Right Ventricle Moderate to severe right ventricular dilatation measures 3.9 cm. Right ventricular systolic pressure estimated at 92 mm hg. Right Atrium Normal right atrial size. Left Atrium Left atrial size at the upper limits of normal. Mitral Valve Mitral valve thickened. Mild mitral regurgitation. Aortic Valve Trileaflet aortic valve. Aortic valve sclerosis. Tricuspid Valve Structurally normal tricuspid valve. Severe tricuspid regurgitation. Pulmonic Valve Structurally normal pulmonic valve. Pericardium Echo free space anterior to the right ventricle likely represents a fat pad. Pleural effusion. Aorta Normal size aortic root and proximal ascending aorta. CONCLUSIONS Normal left ventricular ejection fraction 55% Moderate to severe right ventricular dilation Severe pulmonary hypertension RVSP 92 Mild mitral regurgitation No pericardial effusion Previewed by: Dr. Dany Fish DO (Electronically Signed) Final Date: 22 February 2022 09:41
--- NOTE | 2022-02-23 13:43 | CA ---
Transthoracic Echo Report Name: Santiago Hernandez Age: 61 Gender: M : 1960 Exam Date: 02/22/2022 08:37 Exam Location: [facility] Ht (in): 62 Wt (lb): 176 Ordering Physician: Jorge Talamantes DO Attending/Referring Phys: [id number], Albin Stoker [employer]icer Fannie Faria RDCS Procedure CPT: Indications: PE Cardiac Hx: Technical Quality: Fair Contrast 1: Total Dose (mL): Contrast 2: Total Dose (mL): MEASUREMENTS (Male / Female) Normal Values 2D ECHO RV Internal Dim ED PLAX 3.2 cm M-MODE Aortic Root Diameter MM 2.9 cm LA Systolic Diameter MM 2.8 cm LA Ao Ratio MM 1.0 AV Cusp Separation MM 1.7 cm DOPPLER MV Area PHT 3.0 cm??? Mitral E Point Velocity 74.5 cm/s Mitral A Point Velocity 95.5 cm/s Mitral E to A Ratio 0.8 MV Deceleration Time 249.9 ms TR Peak Velocity 472.6 cm/s TR Peak Gradient 89.4 mmHg Right Ventricular Systolic Press 92.0 mmHg FINDINGS Left Ventricle Left ventricular ejection fraction is estimated at 55%. Right Ventricle Moderate to severe right ventricular dilatation measures 3.9 cm. Right ventricular systolic pressure estimated at 92 mm hg. Right Atrium Normal right atrial size. Left Atrium Left atrial size at the upper limits of normal. Mitral Valve Mitral valve thickened. Mild mitral regurgitation. Aortic Valve Trileaflet aortic valve. Aortic valve sclerosis. Tricuspid Valve Structurally normal tricuspid valve. Severe tricuspid regurgitation. Pulmonic Valve Structurally normal pulmonic valve. Pericardium Echo free space anterior to the right ventricle likely represents a fat pad. Pleural effusion. Aorta Normal size aortic root and proximal ascending aorta. CONCLUSIONS Normal left ventricular ejection fraction 55% Moderate to severe right ventricular dilation Severe pulmonary hypertension RVSP 92 Mild mitral regurgitation No pericardial effusion Previewed by: Dr. Dany Fish DO (Electronically Signed) Final Date: 22 February 2022 09:41
[2022-02-23] MEDS: HEPARIN SOD,PORK IN 0.45% NACL 25,000 UNIT in 0.45% NACL 1 250ML.BAG IV SCH (13:49)
[2022-02-23] MEDS: APIXABAN 5 MG TAB PO SCH ×2 (13:49→20:04)
[2022-02-23 14:15] VITALS: BMI 24.1
--- NOTE | 2022-02-23 17:40 | XR ---
EXAMINATION TYPE: XR chest 2V DATE OF EXAM: 02/23/2022 COMPARISON: 02/22/2022 HISTORY: 61-year-old male status post right thoracentesis TECHNIQUE: PA and lateral views FINDINGS: Residual moderate right pleural effusion remains. Interstitial prominence is redemonstrated. Right he art margin partially obscured. No appreciable pneumothorax. IMPRESSION: Residual moderate right pleural effusion with adjacent atelectasis and/or consolidation. No appreciab le pneumothorax. Possible background vascular congestion.
[2022-02-23] MEDS: ATORVASTATIN 80 MG TAB PO SCH (20:04)
[2022-02-23] MEDS: HYDROcodone/APAP 5-325MG 1 EACH TAB PO PRN (20:04)
[2022-02-24] MEDS: SODIUM CHLORIDE 0.9% 1,000 ML IV SCH (05:11)
--- NOTE | 2022-02-24 07:57 | XR ---
EXAMINATION TYPE: XR chest 1V portable DATE OF EXAM: 02/24/2022 Comparison: 02/23/2022 Clinical History: 61-year-old male Pleural effusion Findings: Continued moderate right pleural effusion. No appreciable pneumothorax. Adjacent right basilar opacit y. Interstitial changes throughout the left lung show slight interval increase. Right heart margin ob scured by adjacent pleural parenchymal opacity. Impression: Continued moderate right pleural effusion with adjacent atelectasis and/or consolidation. Interstitia l densities throughout the left lung are increasing. Correlate as to etiology.
[2022-02-24] MEDS: SYMBICORT 80-4.5 MCG INHALER INHALATION SCH ×2 (08:44→19:57)
[2022-02-24] MEDS: IPRATROPIUM 0.5 MG/2.5 ML NEBU INHALATION SCH ×4 (08:44→19:57)
[2022-02-24] MEDS: PANTOPRAZOLE 40 MG TABLET PO SCH (09:11)
[2022-02-24] MEDS: METOPROLOL TARTRATE 12.5 MG TAB PO SCH ×2 (09:11→21:01)
[2022-02-24] MEDS: APIXABAN 5 MG TAB PO SCH ×2 (09:11→21:01)
--- NOTE | 2022-02-24 10:09 | P.PN ---
Subjective Progress Note Date: 02/24/22 Principal diagnosis: Right-sided pulmonary embolus, right-sided pleural effusion, possible chylothorax, shortness of breath, chest pain on admission, acute on chronic hypoxic respiratory failure, currently on home oxygen, synchronous small cell carcinoma with moderately differentiated invasive squamous cell carcinoma status post right lower lobectomy 02/04/2022. Previous tobacco dependence, COPD, occasional marijuana use, coronary artery disease with myocardial infarction s tatus post drug-eluting stents to the LAD in June 2014, hypertension, hyperlipidemia, family history of premature coronary artery disease. POD #2 right-sided thoracentesis with 650 mL of turbid milky, creamy colored fluid drained by Dr. Barnes. The patient was seen and examined in follow-up today 02/24/2022 at his bedside on the cardiac stepdown unit. He denies any complaints of pain or shortness of breath at this time and reports he has been up ambulating in his room. Oxygen saturations are 97% on 4 L nasal cannula and he is achieving 2250 mL on his incentive spirometry with encouragement. Remote telemetry showing normal sinus rhythm heart rate 97 BPM. Heparin drip was discontinued yesterday and he was started on Eliquis 10 mg by mouth twice a day for anticoagulation by pulmon nathaly/critical care medicine. His been afebrile the last 24 hours. Pleural fluid triglyceride level remains pending. Chest x-ray report continues to show a moderate right pleural effusion with adjacent atelectasis and/or consolidation. He was started on a no fat diet, due to possible right chylothorax. Objective - Vital Signs Vital signs: Vital Signs Temp 97.2 F L 02/24/22 08:55 Pulse 92 02/24/22 08:56 Resp 16 02/24/22 08:55 BP 113/62 02/24/22 08:55 Pulse Ox 97 02/24/22 08:55 FiO2 Intake & Output 02/23/22 02/24/22 02/24/22 18:59 06:59 18:59 Intake Total 720 236 Balance 720 236 Weight 78.5 kg Intake: Oral 720 236 Other: Voiding Method Toilet # Voids 1 1 - Exam CONSTITUTIONAL: Sitting up to the bedside edge on the cardiac stepdown unit eating his breakfast, appears comfortable, cooperative, no apparent acute distress. HEENT: Neck is supple, no JVD, no lymphadenopathy. RESPIRATORY: Lungs sounds essentially clear throughout, diminished to his bilateral bases, right greater than left. Respirations are symmetrical and nonlabored. Currently on 4 L nasal cannula with oxygen saturations 97%. Able t o achieve 2250 mL on his incentive spirometry. Strong cough. CARDIOVASCULAR: Regular rhythm and rate. S1 and S2 present, negative for S3, gallop or murmur. Palpable peripheral pulses bilaterally, No calf pain or tenderness noted. GASTROINTESTINAL: Abdomen soft, nontender, nondistended. Active bowel sounds present 4 quadrants. Tolerating diet. Passing flatus. No guarding or rigidity. GENITOURINARY: Continues to void. INTEGUMENTARY: Skin is warm and dry with no evidence of clubbing or cyanosis. Right-sided thoracotomy incision, clean, dry and approximated. No drainage or redness is present. NEUROLOGIC: Cranial nerves II through XII intact. No focal deficits. MUSKULOSKELETAL: Able to move all extremities, strength equal bilaterally. PSYCHIATRIC: Alert and oriented to person place and time, appropriate affect, intact judgment and insight. - Labs CBC & Chem 7: 02/23/22 09:12 02/23/22 09:12 Labs: Abnormal Lab Results - Last 24 Hours (Table) 02/23/22 02/23/22 Range/Units 09:12 09:12 RBC 3.42 L (4.30-5.90) m/uL Hgb 10.5 L (13.0-17.5) gm/dL Hct 33.8 L (39.0-53.0) % Sodium 132 L (137-145) mmol/L Glucose 117 H (74-99) mg/dL Calcium 7.7 L (8.4-10.2) mg/dL Microbiology - Last 24 Hours (Table) 02/21/22 05:20 Blood Culture - Preliminary Blood No Growth after 72 hours 02/22/22 14:47 Gram Stain - Preliminary Pleural Fluid Body Fluid Culture - Preliminary - Imaging and Cardiology Chest x-ray: report reviewed, image reviewed Assessment and Plan Assessment: 1. Right-sided pulmonary embolus 2. Right-sided pleural effusion, possible chylothorax, status post right-sided thoracentesis by with 650 mL of milky, turbid, creamy pleural fluid drained by Dr. Barnes 3. Shortness of breath, chest pain secondary to above 4. Acute on chronic hypoxic respiratory failure, currently on home oxygen 5. 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 Previous tobacco dependence 7. COPD 8. Occasional marijuana use 9. Coronary artery disease with myocardial infarction status post drug-eluting stents to the LAD in June 2014 10. Hypertension 11. Hyperlipidemia 12. Family history of premature coronary artery disease Plan: 1. No surgical intervention planned from thoracic surgery standpoint. 2. Wean O2 as tolerated. Encourage incentive spirometry use 10 times every hour while awake. 3. Heparin was discontinued yesterday and the patient was started on Eliquis 10 mg PO twice a day by pulmonary/critical care medicine. 4. If right-sided pleural effusion reaccumulated's, may need a right-sided pigtail catheter placed if the fluid comes back positive for chylothorax. Pleural fluid triglyceride level remains pending. 5. Cancer management per oncology recommendations. MRI of the brain pending. 6. Will continue to follow while hospitalized although will not write daily notes. Please call us with any further questions. 7. Continue no fat diet. Discussed with dietitian and the patient. 8. Medical management of the comorbidities per internal medicine, and other consultants. 9. Continue to monitor her daily chest x-rays. 10. More recommendations to follow based on patient's clinical course. Time with Patient: Greater than 30
--- NOTE | 2022-02-24 10:48 | P.PN ---
Subjective Progress Note Date: 02/22/22 Patient is a 61-year-old male with a known history of coronary artery disease history of stent placement, hypertension, hyperlipidemia, GERD, history of recently diagnosed small cell and squamous cell carcinoma, had PET scan on 08/27/2021 showed right basilar lung nodule, history of renal stones, currently everyday smoker syndrome medical problems presents to ER with complaints of exertional shortness of breath and right-sided chest pain. Patient had recently right lung wedge resection and right lower lobe lobectomy on 02/04/2022 and was discharged home on 02/08/2022. Patient is supposed to follow-up with oncology as an outpatient. Patient was hypoxic with pulse ox 88% on room air and was placed on oxygen via nasal cannula. He was also tachycardic. He was found to have elevated D-dimer level. Otherwise denied any complaints of leg swelling currently. Patient states that he always had left ankle swelling on and off. Denies any leg pain. Patient has been afebrile. No cough or sputum production. No headache or dizziness or lightheadedness. CTA chest showed multiple pulmonary emboli in the right upper lobe and right lower lobe pulmonary artery. Normal heart size and no evidence of right heart strain. Extensive bullous emphysema, large loculated right pleural effusion. Mediastinal endobronchial adenopathy. Right pleural effusion essentially new compared to CT scan on 01/11/2022. EKG showed sinus tachycardia with occasional PVCs. Laboratory data showed WBC 12.4 hemoglobin 12.6 and platelets 378 D-dimer level is 4.91 Sodium 134 potassium 4.8 chloride 99 bicarb is 23 BUN 16 and creatinine 0.65 and blood sugar 120, AST 56, ALT 64 and alk phos 194 02/22/2022 Patient is currently lying in bed. Awake alert and oriented. Breathing seems to be better. Patient is undergoing right thoracentesis. No complaints of chest pain. No nausea vomiting abdominal pain. Tolerating oral diet. No fever no chills. Patient is being covered on anticoagulation. Laboratory data showed WBC 10.6 hemoglobin 11.4 and platelets 336 Sodium 133 potassium 4.3 chloride 100 bicarb is 23 BUN 12 and creatinine 0.[address] surgery is on board. Current medications reviewed. Objective - Vital Signs Vital signs: Vital Signs Temp 98.0 F 02/22/22 19:59 Pulse 104 H 02/22/22 20:14 Resp 22 02/22/22 19:59 BP 115/68 02/22/22 19:59 Pulse Ox 94 L 02/22/22 19:59 FiO2 Intake & Output 02/22/22 02/22/22 02/23/22 06:59 18:59 06:59 Intake Total 227.765 523.106 51.934 Output Total 350 Balance 227.765 173.106 51.934 Weight 79.832 kg Intake: IV 115.04 Heparin Sod,Pork in 0.45% 115.04 NaCl 25,000 unit In 0.45 % NaCl 1 250ml.bag @ 18 UNITS/KG/HR 14.37 mls/hr IV .[id number] [facility] Rx#: [id number] Intake, IV Titration 227.765 408.066 51.934 Amount Heparin Sod,Pork in 0.45% 227.765 198.066 51.934 NaCl 25,000 unit In 0.45 % NaCl 1 250ml.bag @ 18 UNITS/KG/HR 14.37 mls/hr IV .[id number] [facility] Rx#: [id number] Sodium Chloride 0.9% 1, 160 000 ml @ 20 mls/hr IV . Q24H [facility] Rx#:[id number] cefTRIAXone 1 gm In 50 Sodium Chloride 0.9% 50 ml @ 100 mls/hr IVPB Q12HR [facility] Rx#:[id number] Output: Urine 350 Other: Voiding Method Toilet Urinal Urinal # Voids 1 - Exam PHYSICAL EXAMINATION: Patient is lying in the bed comfortably, no acute distress, awake alert and oriented.. HEENT: Normocephalic. Neck is supple. Pupils reactive. Nostrils clear. Oral cavity is moist. Neck reveals no JVD, carotid bruits, or thyromegaly. CHEST EXAMINATION: Trachea is central. Symmetrical expansion. Right basilar diminished sounds. No wheezing or rhonchi.. CARDIAC: Normal S1, S2 with no gallops. No murmurs ABDOMEN: Soft. Bowel sounds present. Nontender. No organomegaly. No abdominal bruits. Extremities: reveal no edema. No clubbing or cyanosis Neurologically awake, alert, oriented x3 with well-coordinated movements. No focal deficits noted Skin: No rash or skin lesions. Psychiatric: Coperative. Nonsuicidal, Musculoskeletal: No joint swelling or deformity. Normal range of motion. - Labs CBC & Chem 7: 02/23/22 09:12 02/23/22 09:12 Labs: Abnormal Lab Results - Last 24 Hours (Table) 02/22/22 02/22/22 02/22/22 Range/Units 07:58 07:58 07:58 RBC 3.62 L (4.30-5.90) m/uL Hgb 11.4 L (13.0-17.5) gm/dL Hct 35.2 L (39.0-53.0) % Neutrophils # 8.3 H (1.3-7.7) k/uL APTT 48.3 H (22.0-30.0) sec Sodium 133 L (137-145) mmol/L Creatinine 0.63 L (0.66-1.25) mg/dL Calcium 8.0 L (8.4-10.2) mg/dL ALT 52 H (4-49) U/L Alkaline Phosphatase 172 H (38-126) U/L Total Protein 5.7 L (6.3-8.2) g/dL Albumin 3.0 L (3.5-5.0) g/dL Microbiology - Last 24 Hours (Table) 02/21/22 05:20 Blood Culture - Preliminary Blood No Growth after 24 hours Assessment and Plan Assessment: Acute multiple pulmonary emboli in the right upper lobe and right lower lobe pulmonary artery. 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 There is port right lung wedge resection and right lower lobe lobectomy on 02/04/2022. Large right-sided pleural effusion. Status post thoracentesis on 02/22/2022. Follow-up fluid analysis. Mediastinal lymphadenopathy Emphysematous changes /COPD Coronary artery disease history of stent placement Hypertension Hyperlipidemia History of smoking DVT prophylaxis patient is already on heparin drip Plan: Patient will be continued on heparin drip and oxygen supplementation. Continue telemetry monitoring. 2D echocardiogram was ordered and bilateral lower extremity duplex scan to ruled out DVT. Patient was given a dose of ceftriaxone and azithromycin in the ER. Follow-up CBC and BMP tomorrow Current with duo nebs and incentive spirometry and follow-up closely. Pulmonary, oncology and vascular surgery is on board. Prognosis is guarded at this time. Time with Patient: Greater than 30
--- NOTE | 2022-02-24 10:57 | P.PN ---
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 Patient had recently right lung wedge resection and right lower lobe lobectomy on 02/04/2022 and was discharged home on 02/08/2022. Patient is supposed to follow-up with oncology as an outpatient. Patient was hypoxic with pulse ox 88% on room air and was placed on oxygen via nasal cannula. He was also tachycardic. He was found to have elevated D-dimer level. Otherwise denied any complaints of leg swelling currently. Patient states that he always had left ankle swelling on and off. Denies any leg pain. Patient has been afebrile. No cough or sputum production. No headache or dizziness or lightheadedness. CTA chest showed multiple pulmonary emboli in the right upper lobe and right lower lobe pulmonary artery. Normal heart size and no evidence of right heart strain. Extensive bullous emphysema, large loculated right pleural effusion. Mediastinal endobronchial adenopathy. Right pleural effusion essentially new compared to CT scan on 01/11/2022. EKG showed sinus tachycardia with occasional PVCs. Laboratory data showed WBC 12.4 hemoglobin 12.6 and platelets 378 D-dimer level is 4.91 Sodium 134 potassium 4.8 chloride 99 bicarb is 23 BUN 16 and creatinine 0.65 and blood sugar 120, AST 56, ALT 64 and alk phos 194 02/22/2022 Patient is currently lying in bed. Awake alert and oriented. Breathing seems to be better. Patient is undergoing right thoracentesis. No complaints of chest pain. No nausea vomiting abdominal pain. Tolerating oral diet. No fever no chills. Patient is being covered on anticoagulation. Laboratory data showed WBC 10.6 hemoglobin 11.4 and platelets 336 Sodium 133 potassium 4.3 chloride 100 bicarb is 23 BUN 12 and creatinine 0.[address] surgery is on board. 02/23/2022 Patient is currently resting in bed. Awake alert and oriented 3. Breathing status is better. Requiring 4 L oxygen via nasal cannula. Patient is status post right thoracentesis. Fluid is most likely chylothorax and pulmonary is evaluating. Patient is being continued on heparin drip for pulmonary embolism which is being changed to oral anticoagulation today. Otherwise no complaints of fever or chills. No nausea vomiting or abdominal pain. Tolerating oral diet. pulmonary and CT surgery is on board. Laboratory data showed WBC 9.4 hemoglobin 10.5 and platelets 336 sodium 132 potassium 4.0 chloride 101 bicarb is 22 BUN 15 and creatinine 0.68 and calcium 7.7. Current medications reviewed. Objective - Vital Signs Vital signs: Vital Signs Temp 96.8 F L 02/23/22 09:20 Pulse 96 02/23/22 20:48 Resp 16 02/23/22 17:00 BP 111/66 02/23/22 17:00 Pulse Ox 92 L 02/23/22 17:00 FiO2 Intake & Output 02/23/22 02/23/22 02/24/22 06:59 18:59 06:59 Intake Total 51.934 720 Balance 51.934 720 Weight 78.5 kg 78.5 kg Intake: Intake, IV Titration 51.934 Amount Heparin Sod,Pork in 0.45% 51.934 NaCl 25,000 unit In 0.45 % NaCl 1 250ml.bag @ 18 UNITS/KG/HR 14.37 mls/hr IV .[id number] [facility] Rx#: [id number] Oral 720 Other: Voiding Method Urinal # Voids 1 1 - Exam PHYSICAL EXAMINATION: Patient is lying in the bed comfortably, no acute distress, awake alert and oriented.. HEENT: Normocephalic. Neck is supple. Pupils reactive. Nostrils clear. Oral cavity is moist. Neck reveals no JVD, carotid bruits, or thyromegaly. CHEST EXAMINATION: Trachea is central. Symmetrical expansion. Right basilar diminished sounds. No wheezing or rhonchi.. CARDIAC: Normal S1, S2 with no gallops. No murmurs ABDOMEN: Soft. Bowel sounds present. Nontender. No organomegaly. No abdominal bruits. Extremities: reveal no edema. No clubbing or cyanosis Neurologically awake, alert, oriented x3 with well-coordinated movements. No focal deficits noted Skin: No rash or skin lesions. Psychiatric: Coperative. Nonsuicidal, Musculoskeletal: No joint swelling or deformity. Normal range of motion. - Labs CBC & Chem 7: 02/23/22 09:12 02/23/22 09:12 Labs: Abnormal Lab Results - Last 24 Hours (Table) 02/23/22 02/23/22 02/23/22 Range/Units 09:12 09:12 09:12 RBC 3.42 L (4.30-5.90) m/uL Hgb 10.5 L (13.0-17.5) gm/dL Hct 33.8 L (39.0-53.0) % APTT 37.5 H (22.0-30.0) sec Sodium 132 L (137-145) mmol/L Glucose 117 H (74-99) mg/dL Calcium 7.7 L (8.4-10.2) mg/dL Microbiology - Last 24 Hours (Table) 02/22/22 14:47 Gram Stain - Preliminary Pleural Fluid Body Fluid Culture - Preliminary 02/21/22 05:20 Blood Culture - Preliminary Blood No Growth after 48 hours Assessment and Plan Assessment: Acute multiple pulmonary emboli in the right upper lobe and right lower lobe pulmonary artery. 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 There is port right lung wedge resection and right lower lobe lobectomy on 02/04/2022. Large right-sided pleural effusion. Status post thoracentesis on 02/22/2022. Mediastinal lymphadenopathy Emphysematous changes /COPD Coronary artery disease history of stent placement Hypertension Hyperlipidemia History of smoking DVT prophylaxis patient is already on heparin drip Plan: Continue with oxygen supplementation. Changed to oral anticoagulation. Continue telemetry monitoring. 2D echocardiogram was ordered and bilateral lower extremity duplex scan to ruled out DVT. Patient is status post right thoracentesis. Likely chylothorax. Awaiting reports. Patient was given a dose of ceftriaxone and azithromycin in the ER. Follow-up CBC and BMP tomorrow Current with duo nebs and incentive spirometry and follow-up closely. Pulmonary, oncology and vascular surgery is on board. Prognosis is guarded at this time. Time with Patient: Greater than 30
--- NOTE | 2022-02-24 11:47 | MR ---
EXAMINATION TYPE: MR brain wo/w con DATE OF EXAM: 02/24/2022 COMPARISON: None HISTORY: Patient with small cell lung cancer. TECHNIQUE: Multiplanar, multisequence images of the brain and brainstem is performed without and with IV contras t, utilizing 7.5 mL intravenous Gadavist . FINDINGS: Diffusion weighted images demonstrate no evidence of a recent infarct or other diffusion ab normality. There is no extra-axial fluid collection or significant white matter signal abnormality. The ventricular system and cisternal spaces are normal in size and appearance. The brain volume is age appropriate. Midline structures demonstrate normal morphology. The craniocervical junction appears within normal limits. Post contrast images demonstrate no abnormal enhancement. The dural venous sinuses appear pa tent. Changes of mild chronic sinusitis. There are a few scattered areas of abnormal signal in the wh ite matter which are nonspecific. Nonspecific signal seen in frontal bone measuring approximately 1 c m. IMPRESSION: 1. Minimal nonspecific white matter changes most typical of remote ischemia. 2. No enhancing mass suggest intracranial metastases. However, there is signal alteration involving t he frontal bone. Recommend correlation with CT scan with bone windows to assess for early metastases.
--- NOTE | 2022-02-24 12:55 | P.PN ---
Subjective Progress Note Date: 02/24/22 Today's evaluation of 02/22/2022, the patient is still having some shortness of breath although less compared to yesterday. He seems to be breathing easier compared to yesterday. No chest pain. No pleurisy. He remains on IV heparin. His beaches for acute bouts of pulmonary embolism. He also developed a moderate-sized right-sided pleural effusion with some limited localization. This effusion was not present preoperatively and it developed postop. This is most likely a reactive effusion. Malignancy within the fluid is felt to be less likely. That was at 0.6 with a hemoglobin 11.4 and a platelet count of 336. PTT therapeutic. Respiratory electrolytes are all within normal limits. Pro-calcitonin levels of 0.46. Today's evaluation of 02/23/2022, the patient is feeling better. I performed a thoracentesis on this patient yesterday and the fluid was milky consistent with chylothorax. The fluid cholesterol level is elevated. Awaiting for triglycerides. Meanwhile, the patient is feeling much better. He was given advice to eliminate fats from his diet and dietary advice was given. He is on IV heparin. He'll be switched to oral anticoagulants with liquids. Overall, is doing better. Is using this in the spirometer. Surgical wound site dry clean and intact. He has some occasional limited cough and congestion. He is active. He is tolerating foods. 02/24/2022, the patient is doing well. No specific complaints. He improved significantly after his thoracentesis. The repeat chest x-ray today shows no significant cardiac examination of the right-sided pleural effusion. He was also placed on oral antibiotic recommendation without liquids. MRI of the brain showed no [employer] metastases. The patient is using the incentive spirometer. He is active. His oxygen is at 4 L nasal cannula. He was started on liquids yesterday family has by mouth twice a day and currently is off IV heparin. Objective - Vital Signs Vital signs: Vital Signs Temp 97.2 F L 02/24/22 08:55 Pulse 100 02/24/22 12:04 Resp 16 02/24/22 08:55 BP 113/62 02/24/22 08:55 Pulse Ox 97 02/24/22 08:55 FiO2 Intake & Output 02/23/22 02/24/22 02/24/22 18:59 06:59 18:59 Intake Total 720 236 Balance 720 236 Weight 78.5 kg Intake: Oral 720 236 Other: Voiding Method Toilet # Voids 1 1 - Exam CONSTITUTIONAL: Awake and alert, appears comfortable, cooperative, well- developed, well-nourished, no pain, no acute distress, 4 liters EYES: Pupils equal, round, reactive to light, normal ocular movement ENT: Moist mucous membranes without oral lesions present NECK: No masses, no bruits, trachea midline RESPIRATORY: Lungs sounds diminished bilaterally, right greater than left. Respirations even, nonlabored. Currently on 3 L nasal cannula. Strong cough. No chest wall deformities. CARDIOVASCULAR: S1, S2 present. Tachy but regular rate and rhythm, sinus tach on telemetry. Palpable peripheral pulses bilaterally. No edema present. No calf pain or tenderness noted. GASTROINTESTINAL: Abdomen soft, nontender, nondistended without masses or organomegaly noted. There is no rebound or guarding present. Active bowel s ounds present 4 quadrants. GENITOURINARY: Deferred INTEGUMENTARY: Skin is warm and dry with evidence of good perfusion. Right thoracotomy incision well healed NEUROLOGIC: Cranial nerves II through XII intact, normal coordination, no obvious motor or sensory deficits, speech is normal MUSKULOSKELETAL: Able to move all extremities, strength equal bilaterally, normal posture PSYCHIATRIC: Alert and oriented to person place and time, appropriate affect, intact judgment and insight - Labs CBC & Chem 7: 02/23/22 09:12 02/23/22 09:12 Labs: Microbiology - Last 24 Hours (Table) 02/21/22 05:20 Blood Culture - Preliminary Blood No Growth after 72 hours 02/22/22 14:47 Gram Stain - Preliminary Pleural Fluid Body Fluid Culture - Preliminary Assessment and Plan Plan: Acute bilateral pulmonary embolism post thoracotomy and right lower lobe resection. The patient is currently on Eliquis Right-sided pleural effusion/chylothorax is highly suspected, repeat chest x-ray shows no evidence of the recommendation Acute shortness of breath secondary to pulmonary embolism and pleural effusion, improved with treatment Acute hypoxic respiratory failure secondary to above, currently on 4 L of 02 nasal cannula Lung cancer a combination of non-small cell lung cancer , squamous cell carcinoma of the lung (T3 N0 M0) and limited stage small cell lung cancer COPD History of smoking. His marijuana use History of coronary artery disease with previous [place] and previous coronary stenting of the LAD Hypertension Hyperlipidemia Plan Clinically stable and I think the patient can be potentially discharged home today on oxygen at 4 L. He can gradually wean down FiO2 as tolerated to mental institution about 90%. Discharge fat from the diet regarding chylothorax Eliquis 10 mg by mouth twice a day Doppler of the lower extremity was negative Echo of the heart is still pending Continue bronchodilators and use of incentive spirometer Trelegy Ellipta as maintenance one inhalation a day Echo of the heart was normal MRI of the brain was negative for metastases Surgical one-sided dry clean and intact Possible discharge home today to be followed up with me in the office in 1-2 weeks.
--- NOTE | 2022-02-24 15:34 | CT ---
EXAMINATION TYPE: CT brain wo/w con CT DLP: 2214.4 mGycm, Automated exposure control for dose reduction was used. DATE OF EXAM: 02/24/2022 3:09 PM COMPARISON: MRI brain 02/24/2022. CLINICAL INDICATION:Male, 61 years old with history of Abn MRI, concerns for early bone mets; PHH, Ab normal MRI TECHNIQUE: Axial CT images of the brain were obtained followed by contrast enhanced axial images of t he brain with 100 cc of ISO-view 300 IV contrast. One or more CT dose reduction strategies were utili zed during this examination. FINDINGS: Extra-axial spaces: No abnormal extra-axial fluid collections. Ventricular system: Within normal limits Cerebral parenchyma: No acute intraparenchymal hemorrhage or mass effect. The meeks-white junction is well differentiated. No abnormal enhancement is seen after the administration of intravenous contras t. Cerebellum: Unremarkable. Mass effect: No evidence of midline shift. Intracranial vasculature: Atherosclerotic calcifications of the intracranial vessels. Soft tissues: Normal. Calvarium/osseous structures: No depressed skull fracture. There is a 1.5 x 0.7 cm lytic lesion withi n the left frontal bone just superior to the frontal sinuses (series 204, image 29). This corresponds to MRI finding. No contrast enhancement on the postcontrast images. There is thinning of the cortex along the posterior aspect. Paranasal sinuses and mastoid air cells: Mastoid air cells are clear. Mild mucosal thickening of the bilateral maxillary sinuses with air-fluid levels. Visualized orbits: Orbital contents are intact. IMPRESSION: 1. No acute intracranial process or abnormal contrast enhancement. 2. Indeterminate left frontal bone 1.5 cm lytic lesion. No contrast enhancement identified. The vast etiologies include metastasis, granuloma, hemangioma, multiple myeloma, and arachnoid granulation. C onsider further evaluation nuchal medicine bone scan. 3. Bilateral maxillary air-fluid levels. Clinical correlation for acute sinusitis is recommended.
[2022-02-24] MEDS: HYDROcodone/APAP 5-325MG 1 EACH TAB PO PRN (21:01)
[2022-02-24] MEDS: ATORVASTATIN 80 MG TAB PO SCH (21:01)
[2022-02-25] MEDS: PANTOPRAZOLE 40 MG TABLET PO SCH (06:28)
--- NOTE | 2022-02-25 07:33 | XR ---
EXAMINATION TYPE: XR chest 2V DATE OF EXAM: 02/25/2022 COMPARISON: 02/24/2022 INDICATION: Right pleural effusion TECHNIQUE: Frontal and lateral views of the chest are obtained. FINDINGS: The heart size is normal. The pulmonary vasculature is normal. There is a small to moderate right pleural effusion, stable from comparison. Mild diffuse increased l zechariah markings are present above the fusion through the left mid lower lung field.. IMPRESSION: 1. [id number] stable right pleural effusion 2. Mild stable diffuse infiltrate through the left midlung and at the right base.
[2022-02-25] MEDS: IPRATROPIUM 0.5 MG/2.5 ML NEBU INHALATION SCH ×4 (08:20→20:24)
[2022-02-25] MEDS: SYMBICORT 80-4.5 MCG INHALER INHALATION SCH ×2 (08:31→20:24)
[2022-02-25] MEDS: APIXABAN 5 MG TAB PO SCH (08:58)
[2022-02-25] MEDS: METOPROLOL TARTRATE 12.5 MG TAB PO SCH ×2 (08:58→20:02)
[2022-02-25 09:23] LABS: Basophils # (A) 0.1 k/uL (0-0.2); Basophils % (A) 1 %; Eosinophils # (A) 0.2 k/uL (0-0.7); Eosinophils % (A) 2 %; HCT 35.1 % (39.0-53.0); HGB 11.1 gm/dL (13.0-17.5); Hypochromasia Marked; Lymphocytes % (A) 10 %; MCH 30.8 pg (25.0-35.0); MCHC 31.6 g/dL (31.0-37.0); MCV 97.5 fL (80.0-100.0); Monocytes # (A) 0.8 k/uL (0-1.0); Monocytes % (A) 8 %; Neutrophils # (A) 7.8 k/uL (1.3-7.7); Neutrophils % (A) 78 %; Platelet Count 398 k/uL (150-450); RDW 14.3 % (11.5-15.5)
[2022-02-25 09:34] LABS: African American GFR (CKD) >90 (>60 ml/min/1.73 sqM); Anion Gap 10 mmol/L; Blood Urea Nitrogen 11 mg/dL (9-20); Carbon Dioxide 23 mmol/L (22-30); Chloride 100 mmol/L (98-107); Glucose 112 mg/dL (74-99); Non-African American GFR(CKD) >90 (>60 ml/min/1.73 sqM); Potassium 4.4 mmol/L (3.5-5.1); Sodium 133 mmol/L (137-145)
[2022-02-25] MEDS: SODIUM CHLORIDE 0.9% 1,000 ML IV SCH (09:57)
[2022-02-25] MEDS: HEPARIN SOD,PORK IN 0.45% NACL 25,000 UNIT in 0.45% NACL 1 250ML.BAG IV SCH (09:58)
--- NOTE | 2022-02-25 11:28 | P.PN ---
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 Previous tobacco dependence, COPD, occasional marijuana use, coronary artery disease with myocardial infarction status post drug-eluting stents to the LAD in June 2014, hypertension, hyperlipidemia, family history of premature coronary artery disease. POD #3 right-sided thoracentesis with 650 mL of turbid milky, creamy colored fluid drained by Dr. Barnes. The patient was seen and examined today 02/25/2022 at his bedside on the cardiac stepdown unit. Currently sitting up to the bedside edge, is awake, alert, oriented 3 and is eating his breakfast. Denies any complaints of pain or shortness of breath at this time. He remains on 4 L nasal cannula of oxygen with oxygen saturations 96% and he is achieving 2250 mL to 2500 mL on his incentive spirometry with encouragement. His pleural fluid triglyceride levels came back elevated at 715 mg/dL indicating the pleural fluid to be positive for chylothorax. His Eliquis was has been put on hold and he has been restarted on the heparin drip per low intensity protocol for anticoagulation for pulmonary embolus. A repeat chest x-ray was completed this morning which continues to show a small to moderate stable right-sided pleural effusion. We will continue to monitor his chest x-rays over the weekend with possible right-sided Rx catheter placement on 02/28/2022. This has been discussed with the patient. Remote telemetry is showing normal sinus rhythm heart rate 88 BPM. He has been afebrile the last 24 hours. He reports he has been up ambulating in his room without difficulty, although he occasionally has some shortness of breath with ambulating. He continues on a no fat diet for the chylothorax. Objective - Vital Signs Vital signs: Vital Signs Temp 97.9 F 02/25/22 04:00 Pulse 102 H 02/25/22 08:32 Resp 183 H 02/25/22 08:00 BP 115/74 02/25/22 08:00 Pulse Ox 96 02/25/22 08:22 FiO2 Intake & Output 02/24/22 02/25/22 02/25/22 18:59 06:59 18:59 Intake Total 698 118 Balance 698 118 Intake: Oral 698 118 Other: Voiding Method Toilet Toilet # Voids 1 2 - Exam CONSTITUTIONAL: Sitting up to the bedside edge on the cardiac stepdown unit eating his breakfast, appears comfortable, cooperative, no apparent acute distress. HEENT: Neck is supple, no JVD, no lymphadenopathy. RESPIRATORY: Lungs sounds essentially clear throughout, diminished to his bilateral bases, right greater than left. Respirations are symmetrical and nonlabored. Currently on 4 L nasal cannula with oxygen saturations 96%. Able to achieve 3509-8197 mL on his incentive spirometry. Strong cough. CARDIOVASCULAR: Regular rhythm and rate. S1 and S2 present, negative for S3, gallop or murmur. Palpable peripheral pulses bilaterally, No calf pain or tenderness noted. GASTROINTESTINAL: Abdomen soft, nontender, nondistended. Active bowel sounds present 4 quadrants. Tolerating diet. Passing flatus. No guarding or rigidity. GENITOURINARY: Continues to void. INTEGUMENTARY: Skin is warm and dry with no evidence of clubbing or cyanosis. Right-sided thoracotomy incision, clean, dry and approximated. No drainage or redness is present. NEUROLOGIC: Cranial nerves II through XII intact. No focal deficits. MUSKULOSKELETAL: Able to move all extremities, strength equal bilaterally. PSYCHIATRIC: Alert and oriented to person place and time, appropriate affect, intact judgment and insight. - Allied health notes Allied health notes reviewed: nursing - Labs CBC & Chem 7: 02/25/22 08:46 02/25/22 08:46 Labs: Abnormal Lab Results - Last 24 Hours (Table) 02/25/22 02/25/22 Range/Units 08:46 08:46 RBC 3.60 L (4.30-5.90) m/uL Hgb 11.1 L (13.0-17.5) gm/dL Hct 35.1 L (39.0-53.0) % Neutrophils # 7.8 H (1.3-7.7) k/uL Sodium 133 L (137-145) mmol/L Creatinine 0.58 L (0.66-1.25) mg/dL Glucose 112 H (74-99) mg/dL Calcium 8.0 L (8.4-10.2) mg/dL Microbiology - Last 24 Hours (Table) 02/21/22 05:20 Blood Culture - Preliminary Blood No Growth after 96 hours 02/22/22 14:47 Gram Stain - Preliminary Pleural Fluid Body Fluid Culture - Preliminary - Imaging and Cardiology Chest x-ray: report reviewed, image reviewed Assessment and Plan Assessment: 1. Right-sided pulmonary embolus 2. Right-sided pleural effusion, chylothorax, status post right-sided thoracentesis by with 650 mL of milky, turbid, creamy pleural fluid drained by Dr. Barnes 3. Shortness of breath, chest pain secondary to above 4. Acute on chronic hypoxic respiratory failure, currently on home oxygen 5. 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 Previous tobacco dependence 7. COPD 8. Occasional marijuana use 9. Coronary artery disease with myocardial infarction status post drug-eluting stents to the LAD in June 2014 10. Hypertension 11. Hyperlipidemia 12. Family history of premature coronary artery disease Plan: 1. No surgical intervention planned from thoracic surgery standpoint. 2. Wean O2 as tolerated. Encourage incentive spirometry use 10 times every hour while awake. 3. Eliquis was placed on hold, the patient was restarted on a upper drip low intensity per protocol. In anticipation for possible right-sided Pleurx catheter be placed on 02/28/2022. Pleural fluid triglyceride levels came back elevated at 713 mg/dL indicating right-sided chylothorax. 4. Continue to monitor daily chest x-rays. 5. Cancer management per oncology recommendations. 6. Continue no fat diet, being followed by dietitian. 8. Medical management of the comorbidities per internal medicine, and other consultants. 9. Out of bed for all meals. Increase activity as tolerated. 10. More recommendations to follow based on patient's clinical course. Time with Patient: Greater than 30
[2022-02-25] MEDS: SENNOSIDES-DOCUSATE SODIUM 1 EACH TAB PO SCH ×2 (12:01→20:02)
[2022-02-25 12:31] LABS: INR 1.1 (<1.2); Partial Thromboplastin Time 27.1 sec (22.0-30.0); Prothrombin Time 11.9 sec (9.0-12.0)
--- NOTE | 2022-02-25 13:43 | P.PN ---
Subjective Progress Note Date: 02/25/22 Today's evaluation of 02/22/2022, the patient is still having some shortness of breath although less compared to yesterday. He seems to be breathing easier compared to yesterday. No chest pain. No pleurisy. He remains on IV heparin. His beaches for acute bouts of pulmonary embolism. He also developed a moderate-sized right-sided pleural effusion with some limited localization. This effusion was not present preoperatively and it developed postop. This is most likely a reactive effusion. Malignancy within the fluid is felt to be less likely. That was at 0.6 with a hemoglobin 11.4 and a platelet count of 336. PTT therapeutic. Respiratory electrolytes are all within normal limits. Pro-calcitonin levels of 0.46. Today's evaluation of 02/23/2022, the patient is feeling better. I performed a thoracentesis on this patient yesterday and the fluid was milky consistent with chylothorax. The fluid cholesterol level is elevated. Awaiting for triglycerides. Meanwhile, the patient is feeling much better. He was given advice to eliminate fats from his diet and dietary advice was given. He is on IV heparin. He'll be switched to oral anticoagulants with liquids. Overall, is doing better. Is using this in the spirometer. Surgical wound site dry clean and intact. He has some occasional limited cough and congestion. He is active. He is tolerating foods. 02/24/2022, the patient is doing well. No specific complaints. He improved significantly after his thoracentesis. The repeat chest x-ray today shows no significant cardiac examination of the right-sided pleural effusion. He was also placed on oral antibiotic recommendation without liquids. 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 The patient is using the incentive spirometer. He is active. His oxygen is at 4 L nasal cannula. He was started on liquids yesterday family has by mouth twice a day and currently is off IV heparin. 02/25/2022, the patient is on 4 L of oxygen by nasal cannula. No significant shortness of breath. Repeat chest x-ray from today shows a small to moderate- sized right-sided pleural effusion. The fluid triglyceride was elevated and this was consistent with chylothorax. We are planning to put the Pleurx catheter and prior to him being discharged. Based on that, adequate was di scontinued and the patienton IV heparin. The tentative plan is to glide and put the catheter on Monday and following that discharge the patient. I reviewed the CAT scan of the head and I'm not obviously concerned of a metastatic area to his frontal bone. I reviewed the reports. This is something that is to be followed. An outpatient PET scan may also give us some more insight on his staging. His last PET scan was done in August 2019. Objective - Vital Signs Vital signs: Vital Signs Temp 97.5 F L 02/25/22 12:00 Pulse 91 02/25/22 12:33 Resp 16 02/25/22 12:00 BP 102/55 02/25/22 12:00 Pulse Ox 97 02/25/22 12:00 FiO2 Intake & Output 02/24/22 02/25/22 02/25/22 18:59 06:59 18:59 Intake Total 698 358 Balance 698 358 Intake: Oral 698 358 Other: Voiding Method Toilet Toilet # Voids 1 2 - Exam CONSTITUTIONAL: Awake and alert, appears comfortable, cooperative, well- developed, well-nourished, no pain, no acute distress, 4 liters EYES: Pupils equal, round, reactive to light, normal ocular movement ENT: Moist mucous membranes without oral lesions present NECK: No masses, no bruits, trachea midline RESPIRATORY: Lungs sounds diminished bilaterally, right greater than left. Respirations even, nonlabored. Currently on 3 L nasal cannula. Strong cough. No chest wall deformities. CARDIOVASCULAR: S1, S2 present. Tachy but regular rate and rhythm, sinus tach on telemetry. Palpable peripheral pulses bilaterally. No edema present. No calf pain or tenderness noted. GASTROINTESTINAL: Abdomen soft, nontender, nondistended without masses or organomegaly noted. There is no rebound or guarding present. Active bowel sounds present 4 quadrants. GENITOURINARY: Deferred INTEGUMENTARY: Skin is warm and dry with evidence of good perfusion. Right thoracotomy incision well healed NEUROLOGIC: Cranial nerves II through XII intact, normal coordination, no obvious motor or sensory deficits, speech is normal MUSKULOSKELETAL: Able to move all extremities, strength equal bilaterally, normal posture PSYCHIATRIC: Alert and oriented to person place and time, appropriate affect, intact judgment and insight - Labs CBC & Chem 7: 02/25/22 08:46 02/25/22 08:46 Labs: Abnormal Lab Results - Last 24 Hours (Table) 02/25/22 02/25/22 Range/Units 08:46 08:46 RBC 3.60 L (4.30-5.90) m/uL Hgb 11.1 L (13.0-17.5) gm/dL Hct 35.1 L (39.0-53.0) % Neutrophils # 7.8 H (1.3-7.7) k/uL Sodium 133 L (137-145) mmol/L Creatinine 0.58 L (0.66-1.25) mg/dL Glucose 112 H (74-99) mg/dL Calcium 8.0 L (8.4-10.2) mg/dL Microbiology - Last 24 Hours (Table) 02/21/22 05:20 Blood Culture - Preliminary Blood No Growth after 96 hours 02/22/22 14:47 Gram Stain - Preliminary Pleural Fluid Body Fluid Culture - Preliminary Assessment and Plan Plan: Acute bilateral pulmonary embolism post thoracotomy and right lower lobe resection. The patient is currently on IV heparin Right-sided pleural effusion/chylothorax is highly suspected, repeat chest x-ray shows small to moderate-sized the recommendation of the pleural fluid, recommending a Pleurx catheter insertion Acute shortness of breath secondary to pulmonary embolism and pleural effusion, improved with treatment Acute hypoxic respiratory failure secondary to above, currently on 4 L of 02 nasal cannula Lung cancer a combination of non-small cell lung cancer , squamous cell carcinoma of the lung (T3 N0 M0) and limited stage small cell lung cancer COPD History of smoking. His marijuana use History of coronary artery disease with previous AR and previous coronary stenting of the LAD Hypertension Hyperlipidemia Plan Keep the patient on IV heparin Pleurx catheter insertion on Monday and following that the patient canEliquis Clinically stable and I think the patient can be potentially discharged home today on oxygen at 4 L. He can gradually wean down FiO2 as tolerated to [facility] about 90%. Eliminate fat from the diet regarding chylothorax Doppler of the lower extremity was negative Continue bronchodilators and use of incentive spirometer Trelegy Ellipta as maintenance one inhalation a day MRI of the brain was negative for metastases Surgical one-sided dry clean and intact
[2022-02-25] MEDS: HEPARIN SODIUM 1,000 UN/ML (10ML VL) IV PRN (18:59)
[2022-02-25] MEDS: ATORVASTATIN 80 MG TAB PO SCH (20:02)
[2022-02-26] MEDS: HYDROcodone/APAP 5-325MG 1 EACH TAB PO PRN ×2 (01:02→19:51)
[2022-02-26] MEDS: HEPARIN SOD,PORK IN 0.45% NACL 25,000 UNIT in 0.45% NACL 1 250ML.BAG IV SCH ×2 (03:41→19:49)
[2022-02-26] MEDS: SODIUM CHLORIDE 0.9% 1,000 ML IV SCH ×2 (06:04→19:50)
[2022-02-26] MEDS: PANTOPRAZOLE 40 MG TABLET PO SCH (06:04)
--- NOTE | 2022-02-26 07:37 | XR ---
EXAMINATION TYPE: XR chest 1V portable DATE OF EXAM: 02/26/2022 COMPARISON: Chest x-ray 02/25/2022, CT chest 02/21/2022 HISTORY: Right-sided pleural effusion TECHNIQUE: Single frontal view of the chest is obtained. FINDINGS: Abnormal density at the right lung base obscures the hemidiaphragm and right heart border. Interstitium is increased. No evident pneumothorax. Aorta is dense. IMPRESSION: Findings are similar to prior exam. Probable right pleural effusion and associated atele ctasis, correlate to exclude pneumonia, there is underlying emphysema, patient with known pulmonary e mboli
[2022-02-26] MEDS: SENNOSIDES-DOCUSATE SODIUM 1 EACH TAB PO SCH ×2 (08:19→19:47)
[2022-02-26] MEDS: METOPROLOL TARTRATE 12.5 MG TAB PO SCH ×2 (08:19→19:49)
[2022-02-26] MEDS: SYMBICORT 80-4.5 MCG INHALER INHALATION SCH ×2 (08:41→19:40)
[2022-02-26] MEDS: IPRATROPIUM 0.5 MG/2.5 ML NEBU INHALATION SCH ×4 (08:41→19:40)
--- NOTE | 2022-02-26 09:30 | P.PN ---
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 Previous tobacco dependence, COPD, occasional marijuana use, coronary artery disease with myocardial infarction status post drug-eluting stents to the LAD in June 2014, hypertension, hyperlipidemia, family history of premature coronary artery disease. POD #4 right-sided thoracentesis with 650 mL of turbid milky, creamy colored fluid drained by Dr. Barnes. The patient was seen and examined in follow-up today 02/26/2022 at his bedside on the cardiac stepdown unit. He denies any complaints of pain or shortness of breath at this time. He remains on 4 L nasal cannula oxygen with oxygen saturations 97%. He continues to achieve 2250 mL on his incentive spirometry with encouragement. The pleural fluid sent for triglyceride levels was elevated and was consistent with chylothorax. The Eliquis was placed on hold and he was started on a heparin drip at low intensity per protocol for possible Pleurx catheter placement on 02/28/2022 to be performed by Dr. Andrew Drew. The patient remains on a no fat diet for his chylothorax. He has been afebrile the last 24 hours. Remote telemetry is showing normal sinus rhythm heart rate 94 BPM. Chest x-ray report shows similar findings from prior exam with probable right pleural effusion and associated atelectasis. Objective - Vital Signs Vital signs: Vital Signs Temp 97.7 F 02/26/22 08:15 Pulse 88 02/26/22 08:54 Resp 18 02/26/22 08:15 BP 105/65 02/26/22 08:15 Pulse Ox 98 02/26/22 08:15 FiO2 Intake & Output 02/25/22 02/26/22 02/26/22 18:59 06:59 18:59 Intake Total 780.78 265.726 Balance 780.78 265.726 Intake: IV 160 0.9 160 Intake, IV Titration 84.78 105.726 Amount Heparin Sod,Pork in 0.45% 84.78 105.726 NaCl 25,000 unit In 0.45 % NaCl 1 250ml.bag @ 12 UNITS/KG/HR 9.42 mls/hr IV .Q24H [facility] Rx#: [id number] Oral 696 Other: Voiding Method Toilet Toilet # Voids 1 - Exam CONSTITUTIONAL: Sitting up to the bedside edge on the cardiac stepdown unit eating his breakfast, appears comfortable, cooperative, no apparent acute distress. HEENT: Neck is supple, no JVD, no lymphadenopathy. RESPIRATORY: Lungs sounds essentially clear throughout, diminished to his bilateral bases, right greater than left. Respirations are symmetrical and nonlabored. Currently on 4 L nasal cannula with oxygen saturations 97%. Able to achieve 2250 mL on his incentive spirometry. Strong cough. CARDIOVASCULAR: Regular rhythm and rate. S1 and S2 present, negative for S3, gallop or murmur. Palpable peripheral pulses bilaterally, No calf pain or tenderness noted. GASTROINTESTINAL: Abdomen soft, nontender, nondistended. Active bowel sounds present 4 quadrants. Tolerating diet. Passing flatus. No guarding or rigidity. GENITOURINARY: Continues to void. INTEGUMENTARY: Skin is warm and dry with no evidence of clubbing or cyanosis. Right-sided thoracotomy incision, clean, dry and approximated. No drainage or redness is present. NEUROLOGIC: Cranial nerves II through XII intact. No focal deficits. MUSKULOSKELETAL: Able to move all extremities, strength equal bilaterally. PSYCHIATRIC: Alert and oriented to person place and time, appropriate affect, intact judgment and insight. - Allied health notes Allied health notes reviewed: nursing - Labs CBC & Chem 7: 02/25/22 08:46 02/25/22 08:46 Labs: Abnormal Lab Results - Last 24 Hours (Table) 02/25/22 02/25/22 02/26/22 Range/Units 08:46 08:46 01:11 RBC 3.60 L (4.30-5.90) m/uL Hgb 11.1 L (13.0-17.5) gm/dL Hct 35.1 L (39.0-53.0) % Neutrophils # 7.8 H (1.3-7.7) k/uL APTT 40.2 H (22.0-30.0) sec Sodium 133 L (137-145) mmol/L Creatinine 0.58 L (0.66-1.25) mg/dL Glucose 112 H (74-99) mg/dL Calcium 8.0 L (8.4-10.2) mg/dL Microbiology - Last 24 Hours (Table) 02/21/22 05:20 Blood Culture - Preliminary Blood No Growth after 120 hours 02/22/22 14:47 Gram Stain - Preliminary Pleural Fluid Body Fluid Culture - Preliminary - Imaging and Cardiology Chest x-ray: report reviewed, image reviewed Assessment and Plan Assessment: 1. Right-sided pulmonary embolus 2. Right-sided pleural effusion, chylothorax, status post right-sided thoracentesis by with 650 mL of milky, turbid, creamy pleural fluid drained by Dr. Barnes 3. Shortness of breath, chest pain secondary to above 4. Acute on chronic hypoxic respiratory failure, currently on home oxygen 5. 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 Previous tobacco dependence 7. COPD 8. Occasional marijuana use 9. Coronary artery disease with myocardial infarction status post drug-eluting stents to the LAD in June 2014 10. Hypertension 11. Hyperlipidemia 12. Family history of premature coronary artery disease Plan: 1. We will continue to monitor his daily chest x-rays, plan is for possible right-sided Pleurx catheter placement on 02/28/2022. Triglycerides in the pleural fluid came back elevated consistent with chylothorax. 2. Wean O2 as tolerated. Encourage incentive spirometry use 10 times every hour while awake. 3. Continue to hold Eliquis and continue heparin drip low intensity per protocol. 4. Continue to monitor daily chest x-rays. 5. Cancer management per oncology recommendations. 6. Continue no fat diet, being followed by dietitian. 8. Medical management of the comorbidities per internal medicine, and other consultants. 9. Out of bed for all meals. Increase activity as tolerated. 10. More recommendations to follow based on patient's clinical course. Time with Patient: Greater than 30
[2022-02-26 11:07] LABS: Basophils # (A) 0.1 k/uL (0-0.2); Basophils % (A) 1 %; Eosinophils # (A) 0.2 k/uL (0-0.7); Eosinophils % (A) 2 %; HCT 34.2 % (39.0-53.0); HGB 10.7 gm/dL (13.0-17.5); Hypochromasia Marked; Lymphocytes # (A) 1.1 k/uL (1.0-4.8); Lymphocytes % (A) 11 %; MCH 30.4 pg (25.0-35.0); MCHC 31.2 g/dL (31.0-37.0); MCV 97.6 fL (80.0-100.0); Mean Platelet Volume 7.9; Monocytes # (A) 0.7 k/uL (0-1.0); Monocytes % (A) 7 %; Neutrophils # (A) 7.7 k/uL (1.3-7.7); Neutrophils % (A) 77 %; Platelet Count 398 k/uL (150-450); RDW 14.4 % (11.5-15.5); WBC 9.9 k/uL (3.8-10.6)
[2022-02-26 11:30] LABS: INR 1.1 (<1.2); Partial Thromboplastin Time 32.5 sec (22.0-30.0); Prothrombin Time 11.5 sec (9.0-12.0)
[2022-02-26] MEDS: HEPARIN SODIUM 1,000 UN/ML (10ML VL) IV PRN (11:39)
--- NOTE | 2022-02-26 13:03 | P.PN ---
Subjective Progress Note Date: 02/26/22 Today's evaluation of 02/22/2022, the patient is still having some shortness of breath although less compared to yesterday. He seems to be breathing easier compared to yesterday. No chest pain. No pleurisy. He remains on IV heparin. His [place] for acute bouts of pulmonary embolism. He also developed a moderate-sized right-sided pleural effusion with some limited localization. This effusion was not present preoperatively and it developed postop. This is most likely a reactive effusion. Malignancy within the fluid is felt to be less likely. That was at 0.6 with a hemoglobin 11.4 and a platelet count of 336. PTT therapeutic. Respiratory electrolytes are all within normal limits. Pro-calcitonin levels of 0.46. Today's evaluation of 02/23/2022, the patient is feeling better. I performed a thoracentesis on this patient yesterday and the fluid was milky consistent with chylothorax. The fluid cholesterol level is elevated. Awaiting for triglycerides. Meanwhile, the patient is feeling much better. He was given advice to eliminate fats from his diet and dietary advice was given. He is on IV heparin. He'll be switched to oral anticoagulants with liquids. Overall, is doing better. Is using this in the spirometer. Surgical wound site dry clean and intact. He has some occasional limited cough and congestion. He is active. He is tolerating foods. 02/24/2022, the patient is doing well. No specific complaints. He improved significantly after his thoracentesis. The repeat chest x-ray today shows no significant cardiac examination of the right-sided pleural effusion. He was also placed on oral antibiotic recommendation without liquids. 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 The patient is using the incentive spirometer. He is active. His oxygen is at 4 L nasal cannula. He was started on liquids yesterday family has by mouth twice a day and currently is off IV heparin. 02/25/2022, the patient is on 4 L of oxygen by nasal cannula. No significant shortness of breath. Repeat chest x-ray from today shows a small to moderate- sized right-sided pleural effusion. The fluid triglyceride was elevated and this was consistent with chylothorax. We are planning to put the Pleurx catheter and prior to him being discharged. Based on that, adequate was di scontinued and the patienton IV heparin. The tentative plan is to glide and put the catheter on Monday and following that discharge the patient. I reviewed the CAT scan of the head and I'm not obviously concerned of a metastatic area to his frontal bone. I reviewed the reports. This is something that is to be followed. An outpatient PET scan may also give us some more insight on his staging. His last PET scan was done in August 2019. On today's evaluation of 02/26/2022, the patient is doing well. No specific complaints on 3 L oxygen by nasal cannula. Repeat chest x-ray shows a small to moderate-sized right-sided pleural effusion which is rather stable. No pneumothorax. Surgical incisions of the rectum and intact. The patient remains on IV heparin. The plan is for a Pleurx catheter insertion on Monday. Objective - Vital Signs Vital signs: Vital Signs Temp 98.2 F 02/26/22 11:50 Pulse 86 02/26/22 11:52 Resp 16 02/26/22 11:50 BP 100/54 02/26/22 11:50 Pulse Ox 97 02/26/22 11:50 FiO2 Intake & Output 02/25/22 02/26/22 02/26/22 18:59 06:59 18:59 Intake Total 780.78 265.726 346.093 Balance 780.78 265.726 346.093 Intake: IV 160 0.9 160 Intake, IV Titration 84.78 105.726 106.093 Amount Heparin Sod,Pork in 0.45% 84.78 105.726 106.093 NaCl 25,000 unit In 0.45 % NaCl 1 250ml.bag @ 12 UNITS/KG/HR 9.42 mls/hr IV .Q24H [facility] Rx#: [id number] Oral 696 240 Other: Voiding Method Toilet Toilet Toilet # Voids 1 - Exam CONSTITUTIONAL: Awake and alert, appears comfortable, cooperative, well- developed, well-nourished, no pain, no acute distress, 4 liters EYES: Pupils equal, round, reactive to light, normal ocular movement ENT: Moist mucous membranes without oral lesions present NECK: No masses, no bruits, trachea midline RESPIRATORY: Lungs sounds diminished bilaterally, right greater than left. Respirations even, nonlabored. Currently on 3 L nasal cannula. Strong cough. No chest wall deformities. CARDIOVASCULAR: S1, S2 present. Tachy but regular rate and rhythm, sinus tach on telemetry. Palpable peripheral pulses bilaterally. No edema present. No calf pain or tenderness noted. GASTROINTESTINAL: Abdomen soft, nontender, nondistended without masses or organomegaly noted. There is no rebound or guarding present. Active bowel sounds present 4 quadrants. GENITOURINARY: Deferred INTEGUMENTARY: Skin is warm and dry with evidence of good perfusion. Right thoracotomy incision well healed NEUROLOGIC: Cranial nerves II through XII intact, normal coordination, no obvious motor or sensory deficits, speech is normal MUSKULOSKELETAL: Able to move all extremities, strength equal bilaterally, normal posture PSYCHIATRIC: Alert and oriented to person place and time, appropriate affect, intact judgment and insight - Labs CBC & Chem 7: 02/26/22 10:13 02/25/22 08:46 Labs: Abnormal Lab Results - Last 24 Hours (Table) 02/26/22 02/26/22 02/26/22 Range/Units 01:11 10:13 10:13 RBC 3.50 L (4.30-5.90) m/uL Hgb 10.7 L (13.0-17.5) gm/dL Hct 34.2 L (39.0-53.0) % APTT 40.2 H 32.5 H (22.0-30.0) sec Microbiology - Last 24 Hours (Table) 02/21/22 05:20 Blood Culture - Preliminary Blood No Growth after 120 hours 02/22/22 14:47 Gram Stain - Preliminary Pleural Fluid Body Fluid Culture - Preliminary Assessment and Plan Plan: Acute bilateral pulmonary embolism post thoracotomy and right lower lobe resection. 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 His marijuana use History of coronary artery disease with previous NC and previous coronary stenting of the LAD Hypertension Hyperlipidemia Plan No major change in his condition Keep the patient on IV heparin Pleurx catheter insertion on Monday Clinically stable and I think the patient can be potentially discharged home today on oxygen at 4 L. He can gradually wean down FiO2 as tolerated to [facility] about 90%. Eliminate fat from the diet regarding chylothorax Doppler of the lower extremity was negative Continue bronchodilators and use of incentive spirometer Trelegy Ellipta as maintenance one inhalation a day MRI of the brain was negative for metastases Surgical one-sided dry clean and intact
[2022-02-26] MEDS: ATORVASTATIN 80 MG TAB PO SCH (19:49)
[2022-02-27] MEDS: PANTOPRAZOLE 40 MG TABLET PO SCH (06:09)
--- NOTE | 2022-02-27 07:47 | XR ---
EXAMINATION TYPE: XR chest 1V portable DATE OF EXAM: 02/27/2022 COMPARISON: Chest x-ray 02/26/2022 HISTORY: Right pleural effusion TECHNIQUE: Single frontal view of the chest is obtained. FINDINGS: Findings are stable compared to prior exam. IMPRESSION: No interval change, findings consistent with pleural effusion. There are interstitial ch anges within the lungs, underlying emphysema. Patient with known pulmonary emboli.
[2022-02-27] MEDS: METOPROLOL TARTRATE 12.5 MG TAB PO SCH ×2 (08:12→20:31)
[2022-02-27] MEDS: SENNOSIDES-DOCUSATE SODIUM 1 EACH TAB PO SCH ×2 (08:12→22:50)
[2022-02-27 08:36] LABS: HCT 34.5 % (39.0-53.0); HGB 10.9 gm/dL (13.0-17.5); Hypochromasia Marked; MCH 30.6 pg (25.0-35.0); MCHC 31.4 g/dL (31.0-37.0); MCV 97.3 fL (80.0-100.0); Mean Platelet Volume 8.2; Platelet Count 424 k/uL (150-450); Poikilocytosis Slight; RBC 3.55 m/uL (4.30-5.90); RDW 14.7 % (11.5-15.5); WBC 10.2 k/uL (3.8-10.6)
--- NOTE | 2022-02-27 08:46 | P.PN ---
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 Previous tobacco dependence, COPD, occasional marijuana use, coronary artery disease with myocardial infarction status post drug-eluting stents to the LAD in June 2014, hypertension, hyperlipidemia, family history of premature coronary artery disease. POD #5 right-sided thoracentesis with 650 mL of turbid milky, creamy colored fluid drained by Dr. Barnes. The patient was seen and examined in follow-up today 02/27/2022 at his bedside on the cardiac stepdown unit. He is currently sitting up to the bedside chair, is awake, alert, oriented 3 and is in no acute apparent distress. Denies any complaints of pain or shortness of breath. Oxygen saturation are 97% on 3 L nasal cannula and he is achieving 2250 mL on his incentive spirometry with encouragement. Heparin drip remains confusing per low intensity protocol for history of pulmonary embolus. He is tentatively scheduled for a right chest Pleurx catheter placement by Dr. Andrew Drew tomorrow 02/28/2022. Computed tomography scan of the chest without contrast is pending this morning. He will be nothing by mouth after midnight. Laboratory results this morning show a WBC count of 10.2, hemoglobin 10.9, hematocrit 34.5, and platelets 424. He's been afebrile the last 24 hours. Objective - Vital Signs Vital signs: Vital Signs Temp 97.8 F 02/27/22 08:10 Pulse 97 02/27/22 08:13 Resp 18 02/27/22 08:13 BP 100/63 02/27/22 08:10 Pulse Ox 96 02/27/22 08:10 FiO2 Intake & Output 02/26/22 02/27/22 02/27/22 18:59 06:59 18:59 Intake Total 1064.093 288.478 Balance 1064.093 288.478 Intake: IV 160 0.9 160 Intake, IV Titration 106.093 128.478 Amount Heparin Sod,Pork in 0.45% 106.093 128.478 NaCl 25,000 unit In 0.45 % NaCl 1 250ml.bag @ 12 UNITS/KG/HR 9.42 mls/hr IV .Q24H [facility] Rx#: [id number] Oral 958 Other: Voiding Method Toilet Toilet Toilet # Voids 1 - Exam CONSTITUTIONAL: Sitting up to the bedside chair on the cardiac stepdown unit eating his breakfast, appears comfortable, cooperative, no apparent acute distress. HEENT: Neck is supple, no JVD, no lymphadenopathy. RESPIRATORY: Lungs sounds essentially clear throughout, diminished to his bilateral bases, right greater than left. Respirations are symmetrical and nonlabored. Currently on 3 L nasal cannula with oxygen saturations 97%. Able to achieve 2250 mL on his incentive spirometry. Strong cough. CARDIOVASCULAR: Regular rhythm and rate. S1 and S2 present, negative for S3, gallop or murmur. Palpable peripheral pulses bilaterally, No calf pain or tenderness noted. GASTROINTESTINAL: Abdomen soft, nontender, nondistended. Active bowel sounds present 4 quadrants. Tolerating diet. Passing flatus. No guarding or rigidity. GENITOURINARY: Continues to void. INTEGUMENTARY: Skin is warm and dry with no evidence of clubbing or cyanosis. Right-sided thoracotomy incision, clean, dry and approximated. No drainage or redness is present. NEUROLOGIC: Cranial nerves II through XII intact. No focal deficits. MUSKULOSKELETAL: Able to move all extremities, strength equal bilaterally. PSYCHIATRIC: Alert and oriented to person place and time, appropriate affect, intact judgment and insight. - Allied health notes Allied health notes reviewed: nursing - Labs CBC & Chem 7: 02/27/22 08:12 02/25/22 08:46 Labs: Abnormal Lab Results - Last 24 Hours (Table) 02/26/22 02/26/22 02/26/22 Range/Units 10:13 10:13 18:19 RBC 3.50 L (4.30-5.90) m/uL Hgb 10.7 L (13.0-17.5) gm/dL Hct 34.2 L (39.0-53.0) % APTT 32.5 H 62.1 H (22.0-30.0) sec 02/27/22 Range/Units 08:12 RBC 3.55 L (4.30-5.90) m/uL Hgb 10.9 L (13.0-17.5) gm/dL Hct 34.5 L (39.0-53.0) % APTT (22.0-30.0) sec Microbiology - Last 24 Hours (Table) 02/21/22 05:20 Blood Culture - Final Blood No Growth after 144 hours - Imaging and Cardiology Chest x-ray: report reviewed, image reviewed Assessment and Plan Assessment: 1. Right-sided pulmonary embolus 2. Right-sided pleural effusion, chylothorax, status post right-sided thoracentesis by with 650 mL of milky, turbid, creamy pleural fluid drained by Dr. Barnes 3. Shortness of breath, chest pain secondary to above 4. Acute on chronic hypoxic respiratory failure, currently on home oxygen 5. 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 Previous tobacco dependence 7. COPD 8. Occasional marijuana use 9. Coronary artery disease with myocardial infarction status post drug-eluting stents to the LAD in June 2014 10. Hypertension 11. Hyperlipidemia 12. Family history of premature coronary artery disease Plan: 1. We will continue to monitor his daily chest x-rays, plan is for possible right-sided Pleurx catheter placement tomorrow 02/28/2022. Tr iglycerides in the pleural fluid came back elevated consistent with chylothorax. 2. Wean O2 as tolerated. Encourage incentive spirometry use 10 times every hour while awake. 3. Continue to hold Eliquis and continue heparin drip low intensity per protocol. 4. Continue to monitor daily chest x-rays. Computed tomography scan of the chest without contrast today is pending. 5. Cancer management per oncology recommendations. 6. Continue no fat diet, being followed by dietitian. He will be nothing by mouth after midnight. 8. Medical management of the comorbidities per internal medicine, and other consultants. 9. Out of bed for all meals. Increase activity as tolerated. 10. More recommendations to follow based on patient's clinical course. Time with Patient: Less than 30
[2022-02-27] MEDS: IPRATROPIUM 0.5 MG/2.5 ML NEBU INHALATION SCH ×4 (09:04→20:50)
[2022-02-27 09:05] LABS: African American GFR (CKD) >90 (>60 ml/min/1.73 sqM); Anion Gap 9 mmol/L; Blood Urea Nitrogen 11 mg/dL (9-20); Calcium 7.8 mg/dL (8.4-10.2); Carbon Dioxide 25 mmol/L (22-30); Chloride 99 mmol/L (98-107); Glucose 133 mg/dL (74-99); Non-African American GFR(CKD) >90 (>60 ml/min/1.73 sqM); Potassium 4.4 mmol/L (3.5-5.1); Sodium 133 mmol/L (137-145)
[2022-02-27] MEDS: SYMBICORT 80-4.5 MCG INHALER INHALATION SCH ×2 (09:05→20:50)
--- NOTE | 2022-02-27 11:12 | CT ---
EXAMINATION TYPE: CT chest wo con DATE OF EXAM: 02/27/2022 COMPARISON: CT 02/21/2022 HISTORY: Rt siided chylothorax CT DLP: 348.6 mGycm. Automated Exposure Control for Dose Reduction was Utilized. TECHNIQUE: CT scan of the thorax is performed without IV contrast. FINDINGS: Lack of contrast may limit the exam. LUNGS: The lungs are stable, right-sided pleural effusion is again seen with associated atelectasis. There are scattered foci of high attenuation in the right hilar region which may represent postoperat [place] change. Coronary artery calcifications are present. Emphysematous changes within the lungs is sta ble. MEDIASTINUM: Lack of IV contrast is noted to limit evaluation for mediastinal and especially hilar ad enopathy. Median sternal adenopathy is again seen. No cardiomegaly or pericardial effusion is seen. OTHER: No additional significant double change is seen. IMPRESSION: No significant interval change is evident. Findings consistent with right-sided pleural e ffusion and associated compressive atelectasis. Mediastinal adenopathy. Question postop changes. Emph ysema.
--- NOTE | 2022-02-27 11:57 | P.PN ---
Subjective Progress Note Date: 02/27/22 Today's evaluation of 02/22/2022, the patient is still having some shortness of breath although less compared to yesterday. He seems to be breathing easier compared to yesterday. No chest pain. No pleurisy. He remains on IV heparin. His [place] for acute bouts of pulmonary embolism. He also developed a moderate-sized right-sided pleural effusion with some limited localization. This effusion was not present preoperatively and it developed postop. This is most likely a reactive effusion. Malignancy within the fluid is felt to be less likely. That was at 0.6 with a hemoglobin 11.4 and a platelet count of 336. PTT therapeutic. Respiratory electrolytes are all within normal limits. Pro-calcitonin levels of 0.46. Today's evaluation of 02/23/2022, the patient is feeling better. I performed a thoracentesis on this patient yesterday and the fluid was milky consistent with chylothorax. The fluid cholesterol level is elevated. Awaiting for triglycerides. Meanwhile, the patient is feeling much better. He was given advice to eliminate fats from his diet and dietary advice was given. He is on IV heparin. He'll be switched to oral anticoagulants with liquids. Overall, is doing better. Is using this in the spirometer. Surgical wound site dry clean and intact. He has some occasional limited cough and congestion. He is active. He is tolerating foods. 02/24/2022, the patient is doing well. No specific complaints. He improved significantly after his thoracentesis. The repeat chest x-ray today shows no significant cardiac examination of the right-sided pleural effusion. He was also placed on oral antibiotic recommendation without liquids. MRI of the brain showed no [employer] metastases. The patient is using the incentive spirometer. He is active. His oxygen is at 4 L nasal cannula. He was started on liquids yesterday family has by mouth twice a day and currently is off IV heparin. 02/25/2022, the patient is on 4 L of oxygen by nasal cannula. No significant shortness of breath. Repeat chest x-ray from today shows a small to moderate- sized right-sided pleural effusion. The fluid triglyceride was elevated and this was consistent with chylothorax. We are planning to put the Pleurx catheter and prior to him being discharged. Based on that, adequate was di scontinued and the patienton IV heparin. The tentative plan is to glide and put the catheter on Monday and following that discharge the patient. I reviewed the CAT scan of the head and I'm not obviously concerned of a metastatic area to his frontal bone. I reviewed the reports. This is something that is to be followed. An outpatient PET scan may also give us some more insight on his staging. His last PET scan was done in August 2019. On today's evaluation of 02/26/2022, the patient is doing well. No specific complaints on 3 L oxygen by nasal cannula. Repeat chest x-ray shows a small to moderate-sized right-sided pleural effusion which is rather stable. No pneumothorax. Surgical incisions of the rectum and intact. The patient remains on IV heparin. The plan is for a Pleurx catheter insertion on Monday. 02/27/2022, the patient remains on 3 L. Repeat CAT scan of the chest was done and showed the recommendation of the right-sided chylothorax. The patient is still on IV heparin. The patient is awaiting a Pleurx catheterization tomorrow. Low-fat diet. No measures or difficulties otherwise for now. His clinically stable. Surgical wound is dry and clean and intact. Objective - Vital Signs Vital signs: Vital Signs Temp 97.8 F 02/27/22 08:10 Pulse 88 02/27/22 09:16 Resp 18 02/27/22 08:13 BP 100/63 02/27/22 08:10 Pulse Ox 96 02/27/22 08:10 FiO2 Intake & Output 02/26/22 02/27/22 02/27/22 18:59 06:59 18:59 Intake Total 1064.093 288.478 Balance 1064.093 288.478 Intake: IV 160 0.9 160 Intake, IV Titration 106.093 128.478 Amount Heparin Sod,Pork in 0.45% 106.093 128.478 NaCl 25,000 unit In 0.45 % NaCl 1 250ml.bag @ 12 UNITS/KG/HR 9.42 mls/hr IV .Q24H [facility] Rx#: [id number] Oral 958 Other: Voiding Method Toilet Toilet Toilet # Voids 1 - Exam CONSTITUTIONAL: Awake and alert, appears comfortable, cooperative, well-develope d, well-nourished, no pain, no acute distress, 4 liters EYES: Pupils equal, round, reactive to light, normal ocular movement ENT: Moist mucous membranes without oral lesions present NECK: No masses, no bruits, trachea midline RESPIRATORY: Lungs sounds diminished bilaterally, right greater than left. Respirations even, nonlabored. Currently on 3 L nasal cannula. Strong cough. No chest wall deformities. CARDIOVASCULAR: S1, S2 present. Tachy but regular rate and rhythm, sinus tach on telemetry. Palpable peripheral pulses bilaterally. No edema present. No calf pain or tenderness noted. GASTROINTESTINAL: Abdomen soft, nontender, nondistended without masses or organomegaly noted. There is no rebound or guarding present. Active bowel sounds present 4 quadrants. GENITOURINARY: Deferred INTEGUMENTARY: Skin is warm and dry with evidence of good perfusion. Right thoracotomy incision well healed NEUROLOGIC: Cranial nerves II through XII intact, normal coordination, no obvious motor or sensory deficits, speech is normal MUSKULOSKELETAL: Able to move all extremities, strength equal bilaterally, normal posture PSYCHIATRIC: Alert and oriented to person place and time, appropriate affect, intact judgment and insight - Labs CBC & Chem 7: 02/27/22 08:12 02/27/22 08:12 Labs: Abnormal Lab Results - Last 24 Hours (Table) 02/26/22 02/27/22 02/27/22 Range/Units 18:19 08:12 08:12 RBC 3.55 L (4.30-5.90) m/uL Hgb 10.9 L (13.0-17.5) gm/dL Hct 34.5 L (39.0-53.0) % APTT 62.1 H 55.6 H (22.0-30.0) sec Sodium (137-145) mmol/L Creatinine (0.66-1.25) mg/dL Glucose (74-99) mg/dL Calcium (8.4-10.2) mg/dL 02/27/22 Range/Units 08:12 RBC (4.30-5.90) m/uL Hgb (13.0-17.5) gm/dL Hct (39.0-53.0) % APTT (22.0-30.0) sec Sodium 133 L (137-145) mmol/L Creatinine 0.59 L (0.66-1.25) mg/dL Glucose 133 H (74-99) mg/dL Calcium 7.8 L (8.4-10.2) mg/dL Microbiology - Last 24 Hours (Table) 02/21/22 05:20 Blood Culture - Final Blood No Growth after 144 hours Assessment and Plan Plan: Acute bilateral pulmonary embolism post thoracotomy and right lower lobe resection. 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 His marijuana use History of coronary artery disease with previous NE and previous coronary stenting of the LAD Hypertension Hyperlipidemia Plan CAT scan of the chest was noted Pleurx catheter insertion for chylothorax tomorrow Low-fat diet No major change in his condition Keep the patient on IV heparin Pleurx catheter insertion on Monday Clinically stable and I think the patient can be potentially discharged home today on oxygen at 4 L. He can gradually wean down FiO2 as tolerated to [facility] about 90%. Eliminate fat from the diet regarding chylothorax Doppler of the lower extremity was negative Continue bronchodilators and use of incentive spirometer Trelegy Ellipta as maintenance one inhalation a day MRI of the brain was negative for metastases Surgical one-sided dry clean and intact
[2022-02-27] MEDS: ATORVASTATIN 80 MG TAB PO SCH (20:31)
--- NOTE | 2022-02-28 00:52 | P.PN ---
Subjective Progress Note Date: 02/24/22 Patient is a 61-year-old male with a known history of coronary artery disease history of stent placement, hypertension, hyperlipidemia, GERD, history of recently diagnosed small cell and squamous cell carcinoma, had PET scan on 08/27/2021 showed right basilar lung nodule, history of renal stones, currently everyday smoker syndrome medical problems presents to ER with complaints of exertional shortness of breath and right-sided chest pain. Patient had recently right lung wedge resection and right lower lobe lobectomy on 02/04/2022 and was discharged home on 02/08/2022. Patient is supposed to follow-up with oncology as an outpatient. Patient was hypoxic with pulse ox 88% on room air and was placed on oxygen via nasal cannula. He was also tachycardic. He was found to have elevated D-dimer level. Otherwise denied any complaints of leg swelling currently. Patient states that he always had left ankle swelling on and off. Denies any leg pain. Patient has been afebrile. No cough or sputum production. No headache or dizziness or lightheadedness. CTA chest showed multiple pulmonary emboli in the right upper lobe and right lower lobe pulmonary artery. Normal heart size and no evidence of right heart strain. Extensive bullous emphysema, large loculated right pleural effusion. Mediastinal endobronchial adenopathy. Right pleural effusion essentially new compared to CT scan on 01/11/2022. EKG showed sinus tachycardia with occasional PVCs. Laboratory data showed WBC 12.4 hemoglobin 12.6 and platelets 378 D-dimer level is 4.91 Sodium 134 potassium 4.8 chloride 99 bicarb is 23 BUN 16 and creatinine 0.65 and blood sugar 120, AST 56, ALT 64 and alk phos 194 02/22/2022 Patient is currently lying in bed. Awake alert and oriented. Breathing seems to be better. Patient is undergoing right thoracentesis. No complaints of chest pain. No nausea vomiting abdominal pain. Tolerating oral diet. No fever no chills. Patient is being covered on anticoagulation. Laboratory data showed WBC 10.6 hemoglobin 11.4 and platelets 336 Sodium 133 potassium 4.3 chloride 100 bicarb is 23 BUN 12 and creatinine 0.[address] surgery is on board. 02/23/2022 Patient is currently resting in bed. Awake alert and oriented 3. Breathing status is better. Requiring 4 L oxygen via nasal cannula. Patient is status post right thoracentesis. Fluid is most likely chylothorax and pulmonary is evaluating. Patient is being continued on heparin drip for pulmonary embolism which is being changed to oral anticoagulation today. Otherwise no complaints of fever or chills. No nausea vomiting or abdominal pain. Tolerating oral diet. pulmonary and CT surgery is on board. Laboratory data showed WBC 9.4 hemoglobin 10.5 and platelets 336 sodium 132 potassium 4.0 chloride 101 bicarb is 22 BUN 15 and creatinine 0.68 and calcium 7.7. 02/24/2022 Patient is currently lying in bed. Awake alert and oriented x3. Patient is status post paracentesis. Chest x-ray showed right-sided pleural effusion. Anticoagulation changed to Eliquis. MRI of the brain showed no metastatic to brain lesions. Patient is being continued on 4 L oxygen encourage incentive spirometry. Pulmonary and CT surgery is on board. Laboratory data reviewed Current medications reviewed. Objective - Vital Signs Vital signs: Vital Signs Temp 98.1 F 02/24/22 17:15 Pulse 109 H 02/24/22 17:15 Resp 16 02/24/22 17:15 BP 132/83 02/24/22 17:15 Pulse Ox 92 L 02/24/22 17:15 FiO2 Intake & Output 02/24/22 02/24/22 02/25/22 06:59 18:59 06:59 Intake Total 698 Balance 698 Intake: Oral 698 Other: Voiding Method Toilet # Voids 1 1 - Exam PHYSICAL EXAMINATION: Patient is lying in the bed comfortably, no acute distress, awake alert and oriented.. HEENT: Normocephalic. Neck is supple. Pupils reactive. Nostrils clear. Oral cavity is moist. Neck reveals no JVD, carotid bruits, or thyromegaly. CHEST EXAMINATION: Trachea is central. Symmetrical expansion. Right basilar diminished sounds. No wheezing or rhonchi.. CARDIAC: Normal S1, S2 with no gallops. No murmurs ABDOMEN: Soft. Bowel sounds present. Nontender. No organomegaly. No abdominal bruits. Extremities: reveal no edema. No clubbing or cyanosis Neurologically awake, alert, oriented x3 with well-coordinated movements. No focal deficits noted Skin: No rash or skin lesions. Psychiatric: Coperative. Nonsuicidal, Musculoskeletal: No joint swelling or deformity. Normal range of motion. - Labs CBC & Chem 7: 10/16/22 08:12 02/27/22 08:12 Labs: Microbiology - Last 24 Hours (Table) 02/22/22 14:47 Gram Stain - Preliminary Pleural Fluid Body Fluid Culture - Preliminary 02/21/22 05:20 Blood Culture - Preliminary Blood No Growth after 72 hours Assessment and Plan Assessment: Acute multiple pulmonary emboli in the right upper lobe and right lower lobe pulmonary artery. 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 There is port right lung wedge resection and right lower lobe lobectomy on 02/04/2022. Large right-sided pleural effusion. Status post thoracentesis on 02/22/2022. Mediastinal lymphadenopathy Emphysematous changes /COPD Coronary artery disease history of stent placement Hypertension Hyperlipidemia History of smoking DVT prophylaxis patient is already on heparin drip Plan: Continue with oxygen supplementation. Changed to oral anticoagulation. Continue telemetry monitoring. 2D echocardiogram was ordered and bilateral lower extremity duplex scan to ruled out DVT. Patient is status post right thoracentesis. Likely chylothorax. Awaiting reports. Patient was given a dose of ceftriaxone and azithromycin in the ER. Follow-up CBC and BMP tomorrow Current with duo nebs and incentive spirometry and follow-up closely. Pulmonary, oncology and vascular surgery is on board. Prognosis is guarded at this time. Time with Patient: Greater than 30
--- NOTE | 2022-02-28 00:53 | P.PN ---
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 Patient had recently right lung wedge resection and right lower lobe lobectomy on 02/04/2022 and was discharged home on 02/08/2022. Patient is supposed to follow-up with oncology as an outpatient. Patient was hypoxic with pulse ox 88% on room air and was placed on oxygen via nasal cannula. He was also tachycardic. He was found to have elevated D-dimer level. Otherwise denied any complaints of leg swelling currently. Patient states that he always had left ankle swelling on and off. Denies any leg pain. Patient has been afebrile. No cough or sputum production. No headache or dizziness or lightheadedness. CTA chest showed multiple pulmonary emboli in the right upper lobe and right lower lobe pulmonary artery. Normal heart size and no evidence of right heart strain. Extensive bullous emphysema, large loculated right pleural effusion. Mediastinal endobronchial adenopathy. Right pleural effusion essentially new compared to CT scan on 01/11/2022. EKG showed sinus tachycardia with occasional PVCs. Laboratory data showed WBC 12.4 hemoglobin 12.6 and platelets 378 D-dimer level is 4.91 Sodium 134 potassium 4.8 chloride 99 bicarb is 23 BUN 16 and creatinine 0.65 and blood sugar 120, AST 56, ALT 64 and alk phos 194 02/22/2022 Patient is currently lying in bed. Awake alert and oriented. Breathing seems to be better. Patient is undergoing right thoracentesis. No complaints of chest pain. No nausea vomiting abdominal pain. Tolerating oral diet. No fever no chills. Patient is being covered on anticoagulation. Laboratory data showed WBC 10.6 hemoglobin 11.4 and platelets 336 Sodium 133 potassium 4.3 chloride 100 bicarb is 23 BUN 12 and creatinine 0.[address] surgery is on board. 02/23/2022 Patient is currently resting in bed. Awake alert and oriented 3. Breathing status is better. Requiring 4 L oxygen via nasal cannula. Patient is status post right thoracentesis. Fluid is most likely chylothorax and pulmonary is evaluating. Patient is being continued on heparin drip for pulmonary embolism which is being changed to oral anticoagulation today. Otherwise no complaints of fever or chills. No nausea vomiting or abdominal pain. Tolerating oral diet. pulmonary and CT surgery is on board. Laboratory data showed WBC 9.4 hemoglobin 10.5 and platelets 336 sodium 132 potassium 4.0 chloride 101 bicarb is 22 BUN 15 and creatinine 0.68 and calcium 7.7. 02/24/2022 Patient is currently lying in bed. Awake alert and oriented x3. Patient is status post paracentesis. Chest x-ray showed right-sided pleural effusion. Anticoagulation changed to Eliquis. MRI of the brain showed no metastatic to brain lesions. Patient is being continued on 4 L oxygen encourage incentive spirometry. Pulmonary and CT surgery is on board. Laboratory data reviewed 02/25/2022 Patient is currently resting on the side of the bed. Awake alert and oriented x3. Repeat chest x-ray showed small to moderate-sized right-sided pleural effusion. Fluid triglyceride level is elevated and is consistent with chylothorax. Plan for Pleurx catheter placement prior to be discharged. Eliquis will be on hold and patient was started heparin drip. Possible Pleurx catheter placement on Monday. Otherwise outpatient PET scan follow-up for possible metastatic bone lesions. Patient has been afebrile. No complaints of chest pain or worsening shortness of breath. No headache or dizziness or lightheadedness. Laboratory data showed WBC 10.0 hemoglobin 11.1 and platelets 398 Sodium 133 potassium 4.4 chloride 100 BUN 11 and creatinine 0.58 and calcium 8.0. Current medications reviewed. Objective - Vital Signs Vital signs: Vital Signs Temp 98.2 F 02/27/22 16:00 Pulse 84 02/27/22 21:01 Resp 18 02/27/22 16:00 BP 99/64 02/27/22 16:00 Pulse Ox 92 L 02/27/22 16:00 FiO2 Intake & Output 02/27/22 02/27/22 02/28/22 06:59 18:59 06:59 Intake Total 117.871 6198 Balance 133.898 6376 Intake: IV 160 0.9 160 Intake, IV Titration 128.478 Amount Heparin Sod,Pork in 0.45% 128.478 NaCl 25,000 unit In 0.45 % NaCl 1 250ml.bag @ 12 UNITS/KG/HR 9.42 mls/hr IV .Q24H [facility] Rx#: [id number] Oral 1198 Other: Voiding Method Toilet Toilet # Voids 1 - Exam PHYSICAL EXAMINATION: Patient is lying in the bed comfortably, no acute distress, awake alert and oriented.. HEENT: Normocephalic. Neck is supple. Pupils reactive. Nostrils clear. Oral cavity is moist. Neck reveals no JVD, carotid bruits, or thyromegaly. CHEST EXAMINATION: Trachea is central. Symmetrical expansion. Right basilar diminished sounds. No wheezing or rhonchi.. CARDIAC: Normal S1, S2 with no gallops. No murmurs ABDOMEN: Soft. Bowel sounds present. Nontender. No organomegaly. No abdominal bruits. Extremities: reveal no edema. No clubbing or cyanosis Neurologically awake, alert, oriented x3 with well-coordinated movements. No focal deficits noted Skin: No rash or skin lesions. Psychiatric: Coperative. Nonsuicidal, Musculoskeletal: No joint swelling or deformity. Normal range of motion. - Labs CBC & Chem 7: 02/27/22 08:12 02/27/22 08:12 Labs: Abnormal Lab Results - Last 24 Hours (Table) 02/27/22 02/27/22 02/27/22 Range/Units 08:12 08:12 08:12 RBC 3.55 L (4.30-5.90) m/uL Hgb 10.9 L (13.0-17.5) gm/dL Hct 34.5 L (39.0-53.0) % APTT 55.6 H (22.0-30.0) sec Sodium 133 L (137-145) mmol/L Creatinine 0.59 L (0.66-1.25) mg/dL Glucose 133 H (74-99) mg/dL Calcium 7.8 L (8.4-10.2) mg/dL Microbiology - Last 24 Hours (Table) 02/21/22 05:20 Blood Culture - Final Blood No Growth after 144 hours Assessment and Plan Assessment: Acute multiple pulmonary emboli in the right upper lobe and right lower lobe pulmonary artery. 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 There is port right lung wedge resection and right lower lobe lobectomy on 02/04/2022. Large right-sided pleural effusion. Status post thoracentesis on 02/22/2022. Mediastinal lymphadenopathy Emphysematous changes /COPD Coronary artery disease history of stent placement Hypertension Hyperlipidemia History of smoking DVT prophylaxis patient is already on heparin drip Plan: Continue with oxygen supplementation. Changed to oral anticoagulation. Started back on heparin drip for possible procedure on Monday. Continue telemetry monitoring. 2D echocardiogram was ordered and bilateral lower extremity duplex scan to ruled out DVT. Patient is status post right thoracentesis. Likely chylothorax. Awaiting reports. Elevated triglyceride level. Due to worsening right pleural effusion again, plan: Pleurx catheter to be placed on Monday. Current with duo nebs and incentive spirometry and follow-up closely. Pulmonary, oncology and vascular surgery is on board. Prognosis is guarded at this time. Time with Patient: Greater than 30
--- NOTE | 2022-02-28 01:00 | P.PN ---
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 Patient had recently right lung wedge resection and right lower lobe lobectomy on 02/04/2022 and was discharged home on 02/08/2022. Patient is supposed to follow-up with oncology as an outpatient. Patient was hypoxic with pulse ox 88% on room air and was placed on oxygen via nasal cannula. He was also tachycardic. He was found to have elevated D-dimer level. Otherwise denied any complaints of leg swelling currently. Patient states that he always had left ankle swelling on and off. Denies any leg pain. Patient has been afebrile. No cough or sputum production. No headache or dizziness or lightheadedness. CTA chest showed multiple pulmonary emboli in the right upper lobe and right lower lobe pulmonary artery. Normal heart size and no evidence of right heart strain. Extensive bullous emphysema, large loculated right pleural effusion. Mediastinal endobronchial adenopathy. Right pleural effusion essentially new compared to CT scan on 01/11/2022. EKG showed sinus tachycardia with occasional PVCs. Laboratory data showed WBC 12.4 hemoglobin 12.6 and platelets 378 D-dimer level is 4.91 Sodium 134 potassium 4.8 chloride 99 bicarb is 23 BUN 16 and creatinine 0.65 and blood sugar 120, AST 56, ALT 64 and alk phos 194 02/22/2022 Patient is currently lying in bed. Awake alert and oriented. Breathing seems to be better. Patient is undergoing right thoracentesis. No complaints of chest pain. No nausea vomiting abdominal pain. Tolerating oral diet. No fever no chills. Patient is being covered on anticoagulation. Laboratory data showed WBC 10.6 hemoglobin 11.4 and platelets 336 Sodium 133 potassium 4.3 chloride 100 bicarb is 23 BUN 12 and creatinine 0.[address] surgery is on board. 02/23/2022 Patient is currently resting in bed. Awake alert and oriented 3. Breathing status is better. Requiring 4 L oxygen via nasal cannula. Patient is status post right thoracentesis. Fluid is most likely chylothorax and pulmonary is evaluating. Patient is being continued on heparin drip for pulmonary embolism which is being changed to oral anticoagulation today. Otherwise no complaints of fever or chills. No nausea vomiting or abdominal pain. Tolerating oral diet. pulmonary and CT surgery is on board. Laboratory data showed WBC 9.4 hemoglobin 10.5 and platelets 336 sodium 132 potassium 4.0 chloride 101 bicarb is 22 BUN 15 and creatinine 0.68 and calcium 7.7. 02/24/2022 Patient is currently lying in bed. Awake alert and oriented x3. Patient is status post paracentesis. Chest x-ray showed right-sided pleural effusion. Anticoagulation changed to Eliquis. MRI of the brain showed no metastatic to brain lesions. Patient is being continued on 4 L oxygen encourage incentive spirometry. Pulmonary and CT surgery is on board. Laboratory data reviewed 02/25/2022 Patient is currently resting on the side of the bed. Awake alert and oriented x3. Repeat chest x-ray showed small to moderate-sized right-sided pleural effusion. Fluid triglyceride level is elevated and is consistent with chylothorax. Plan for Pleurx catheter placement prior to be discharged. Eliquis will be on hold and patient was started heparin drip. Possible Pleurx catheter placement on Monday. Otherwise outpatient PET scan follow-up for possible metastatic bone lesions. Patient has been afebrile. No complaints of chest pain or worsening shortness of breath. No headache or dizziness or lightheadedness. Laboratory data showed WBC 10.0 hemoglobin 11.1 and platelets 398 Sodium 133 potassium 4.4 chloride 100 BUN 11 and creatinine 0.58 and calcium 8.0. 02/26/2022 No other acute overnight issues today. Currently requiring 2 L to 3 L via nasal cannula. Continued on heparin drip and Pleurx catheter placement on Monday. Patient denies any cough or sputum production. No fever no chills. Tolerating oral diet. No headache or dizziness or lightheadedness. Current medications reviewed. Objective - Vital Signs Vital signs: Vital Signs Temp 98.2 F 02/26/22 11:50 Pulse 86 02/26/22 11:52 Resp 16 02/26/22 11:50 BP 100/54 02/26/22 11:50 Pulse Ox 97 02/26/22 11:50 FiO2 Intake & Output 02/25/22 02/26/22 02/26/22 18:59 06:59 18:59 Intake Total 780.78 265.726 346.093 Balance 780.78 265.726 346.093 Intake: IV 160 0.9 160 Intake, IV Titration 84.78 105.726 106.093 Amount Heparin Sod,Pork in 0.45% 84.78 105.726 106.093 NaCl 25,000 unit In 0.45 % NaCl 1 250ml.bag @ 12 UNITS/KG/HR 9.42 mls/hr IV .Q24H [facility] Rx#: [id number] Oral [id number] Other: Voiding Method Toilet Toilet Toilet # Voids 1 - Exam PHYSICAL EXAMINATION: Patient is lying in the bed comfortably, no acute distress, awake alert and oriented.. HEENT: Normocephalic. Neck is supple. Pupils reactive. Nostrils clear. Oral cavity is moist. Neck reveals no JVD, carotid bruits, or thyromegaly. CHEST EXAMINATION: Trachea is central. Symmetrical expansion. Right basilar diminished sounds. No wheezing or rhonchi.. CARDIAC: Normal S1, S2 with no gallops. No murmurs ABDOMEN: Soft. Bowel sounds present. Nontender. No organomegaly. No abdominal bruits. Extremities: reveal no edema. No clubbing or cyanosis Neurologically awake, alert, oriented x3 with well-coordinated movements. No focal deficits noted Skin: No rash or skin lesions. Psychiatric: Coperative. Nonsuicidal, Musculoskeletal: No joint swelling or deformity. Normal range of motion. - Labs CBC & Chem 7: 02/27/22 08:12 02/27/22 08:12 Labs: Abnormal Lab Results - Last 24 Hours (Table) 02/26/22 02/26/22 02/26/22 Range/Units 01:11 10:13 10:13 RBC 3.50 L (4.30-5.90) m/uL Hgb 10.7 L (13.0-17.5) gm/dL Hct 34.2 L (39.0-53.0) % APTT 40.2 H 32.5 H (22.0-30.0) sec Microbiology - Last 24 Hours (Table) 02/21/22 05:20 Blood Culture - Preliminary Blood No Growth after 120 hours 02/22/22 14:47 Gram Stain - Preliminary Pleural Fluid Body Fluid Culture - Preliminary Assessment and Plan Assessment: Acute multiple pulmonary emboli in the right upper lobe and right lower lobe pulmonary artery. 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 There is port right lung wedge resection and right lower lobe lobectomy on 02/04/2022. Large right-sided pleural effusion. Status post thoracentesis on 02/22/2022. Mediastinal lymphadenopathy Emphysematous changes /COPD Coronary artery disease history of stent placement Hypertension Hyperlipidemia History of smoking DVT prophylaxis patient is already on heparin drip Plan: Continue with oxygen supplementation. Changed to oral anticoagulation. Started back on heparin drip for possible procedure on Monday. Continue telemetry monitoring. 2D echocardiogram was ordered and bilateral lower extremity duplex scan to ruled out DVT. Patient is status post right thoracentesis. Likely chylothorax. Awaiting reports. Elevated triglyceride level. Due to worsening right pleural effusion again, plan: Pleurx catheter to be placed on Monday. Current with duo nebs and incentive spirometry and follow-up closely. Pulmonary, oncology and vascular surgery is on board. Prognosis is guarded at this time. Time with Patient: Greater than 30
--- NOTE | 2022-02-28 01:01 | P.PN ---
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 Patient had recently right lung wedge resection and right lower lobe lobectomy on 02/04/2022 and was discharged home on 02/08/2022. Patient is supposed to follow-up with oncology as an outpatient. Patient was hypoxic with pulse ox 88% on room air and was placed on oxygen via nasal cannula. He was also tachycardic. He was found to have elevated D-dimer level. Otherwise denied any complaints of leg swelling currently. Patient states that he always had left ankle swelling on and off. Denies any leg pain. Patient has been afebrile. No cough or sputum production. No headache or dizziness or lightheadedness. CTA chest showed multiple pulmonary emboli in the right upper lobe and right lower lobe pulmonary artery. Normal heart size and no evidence of right heart strain. Extensive bullous emphysema, large loculated right pleural effusion. Mediastinal endobronchial adenopathy. Right pleural effusion essentially new compared to CT scan on 01/11/2022. EKG showed sinus tachycardia with occasional PVCs. Laboratory data showed WBC 12.4 hemoglobin 12.6 and platelets 378 D-dimer level is 4.91 Sodium 134 potassium 4.8 chloride 99 bicarb is 23 BUN 16 and creatinine 0.65 and blood sugar 120, AST 56, ALT 64 and alk phos 194 02/22/2022 Patient is currently lying in bed. Awake alert and oriented. Breathing seems to be better. Patient is undergoing right thoracentesis. No complaints of chest pain. No nausea vomiting abdominal pain. Tolerating oral diet. No fever no chills. Patient is being covered on anticoagulation. Laboratory data showed WBC 10.6 hemoglobin 11.4 and platelets 336 Sodium 133 potassium 4.3 chloride 100 bicarb is 23 BUN 12 and creatinine 0.[address] surgery is on board. 02/23/2022 Patient is currently resting in bed. Awake alert and oriented 3. Breathing status is better. Requiring 4 L oxygen via nasal cannula. Patient is status post right thoracentesis. Fluid is most likely chylothorax and pulmonary is evaluating. Patient is being continued on heparin drip for pulmonary embolism which is being changed to oral anticoagulation today. Otherwise no complaints of fever or chills. No nausea vomiting or abdominal pain. Tolerating oral diet. pulmonary and CT surgery is on board. Laboratory data showed WBC 9.4 hemoglobin 10.5 and platelets 336 sodium 132 potassium 4.0 chloride 101 bicarb is 22 BUN 15 and creatinine 0.68 and calcium 7.7. 02/24/2022 Patient is currently lying in bed. Awake alert and oriented x3. Patient is status post paracentesis. Chest x-ray showed right-sided pleural effusion. Anticoagulation changed to Eliquis. MRI of the brain showed no metastatic to brain lesions. Patient is being continued on 4 L oxygen encourage incentive spirometry. Pulmonary and CT surgery is on board. Laboratory data reviewed 02/25/2022 Patient is currently resting on the side of the bed. Awake alert and oriented x3. Repeat chest x-ray showed small to moderate-sized right-sided pleural effusion. Fluid triglyceride level is elevated and is consistent with chylothorax. Plan for Pleurx catheter placement prior to be discharged. Eliquis will be on hold and patient was started heparin drip. Possible Pleurx catheter placement on Monday. Otherwise outpatient PET scan follow-up for possible metastatic bone lesions. Patient has been afebrile. No complaints of chest pain or worsening shortness of breath. No headache or dizziness or lightheadedness. Laboratory data showed WBC 10.0 hemoglobin 11.1 and platelets 398 Sodium 133 potassium 4.4 chloride 100 BUN 11 and creatinine 0.58 and calcium 8.0. 02/26/2022 No other acute overnight issues today. Currently requiring 2 L to 3 L via nasal cannula. Continued on heparin drip and Pleurx catheter placement on Monday. Patient denies any cough or sputum production. No fever no chills. Tolerating oral diet. No headache or dizziness or lightheadedness. 02/27/2022 Patient is resting in the bed. Awake alert and oriented x3. Requiring 3 L of oxygen via nasal cannula. Repeat CT showed recurrence of right pleural effusion and is planning for Pleurx catheter placement on Monday. Eliquis is on hold and started on heparin drip. Otherwise patient denies any complaints of chest pain or worsening shortness breath. No nausea vomiting abdominal pain or diarrhea. Tolerating oral diet. No headache or dizziness or lightheadedness. No fever no chills. Anticipate discharge after Pleurx catheter placement Current medications reviewed. Objective - Vital Signs Vital signs: Vital Signs Temp 98.2 F 02/27/22 16:00 Pulse 88 02/27/22 16:39 Resp 18 02/27/22 16:00 BP 99/64 02/27/22 16:00 Pulse Ox 92 L 02/27/22 16:00 FiO2 Intake & Output 02/26/22 02/27/22 02/27/22 18:59 06:59 18:59 Intake Total 1064.093 288.478 Balance 1064.093 288.478 Intake: IV 160 0.9 160 Intake, IV Titration 106.093 128.478 Amount Heparin Sod,Pork in 0.45% 106.093 128.478 NaCl 25,000 unit In 0.45 % NaCl 1 250ml.bag @ 12 UNITS/KG/HR 9.42 mls/hr IV .Q24H [facility] Rx#: [id number] Oral 958 Other: Voiding Method Toilet Toilet Toilet # Voids 1 - Exam PHYSICAL EXAMINATION: Patient is lying in the bed comfortably, no acute distress, awake alert and oriented.. HEENT: Normocephalic. Neck is supple. Pupils reactive. Nostrils clear. Oral cavity is moist. Neck reveals no JVD, carotid bruits, or thyromegaly. CHEST EXAMINATION: Trachea is central. Symmetrical expansion. Right basilar diminished sounds. No wheezing or rhonchi.. CARDIAC: Normal S1, S2 with no gallops. No murmurs ABDOMEN: Soft. Bowel sounds present. Nontender. No organomegaly. No abdominal bruits. Extremities: reveal no edema. No clubbing or cyanosis Neurologically awake, alert, oriented x3 with well-coordinated movements. No f ocal deficits noted Skin: No rash or skin lesions. Psychiatric: Coperative. Nonsuicidal, Musculoskeletal: No joint swelling or deformity. Normal range of motion. - Labs CBC & Chem 7: 02/27/22 08:12 02/27/22 08:12 Labs: Abnormal Lab Results - Last 24 Hours (Table) 02/26/22 02/27/22 02/27/22 Range/Units 18:19 08:12 08:12 RBC 3.55 L (4.30-5.90) m/uL Hgb 10.9 L (13.0-17.5) gm/dL Hct 34.5 L (39.0-53.0) % APTT 62.1 H 55.6 H (22.0-30.0) sec Sodium (137-145) mmol/L Creatinine (0.66-1.25) mg/dL Glucose (74-99) mg/dL Calcium (8.4-10.2) mg/dL 02/27/22 Range/Units 08:12 RBC (4.30-5.90) m/uL Hgb (13.0-17.5) gm/dL Hct (39.0-53.0) % APTT (22.0-30.0) sec Sodium 133 L (137-145) mmol/L Creatinine 0.59 L (0.66-1.25) mg/dL Glucose 133 H (74-99) mg/dL Calcium 7.8 L (8.4-10.2) mg/dL Microbiology - Last 24 Hours (Table) 02/21/22 05:20 Blood Culture - Final Blood No Growth after 144 hours Assessment and Plan Assessment: Acute multiple pulmonary emboli in the right upper lobe and right lower lobe pulmonary artery. 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 There is port right lung wedge resection and right lower lobe lobectomy on 02/04/2022. Large right-sided pleural effusion. Status post thoracentesis on 02/22/2022. Mediastinal lymphadenopathy Emphysematous changes /COPD Coronary artery disease history of stent placement Hypertension Hyperlipidemia History of smoking DVT prophylaxis patient is already on heparin drip Plan: Continue with oxygen supplementation. Changed to oral anticoagulation. Started back on heparin drip for possible procedure on Monday. Continue telemetry monitoring. 2D echocardiogram was ordered and bilateral lower extremity duplex scan to ruled out DVT. Patient is status post right thoracentesis. Likely chylothorax. Awaiting reports. Elevated triglyceride level. Due to worsening right pleural effusion again, plan: Pleurx catheter to be placed on Monday. Current with duo nebs and incentive spirometry and follow-up closely. Pulmonary, oncology and vascular surgery is on board. Prognosis is guarded at this time. Time with Patient: Greater than 30
[2022-02-28] MEDS ORDERED: LACTATED RINGERS 1,000 ML IV ONE (07:17)
[2022-02-28] MEDS ORDERED: ONDANSETRON 4 MG/2 ML VIAL ONE (07:24)
[2022-02-28] MEDS: SODIUM CHLORIDE 0.9% 1,000 ML IV SCH (07:50)
[2022-02-28] MEDS ORDERED: ONDANSETRON 4 MG/2 ML VIAL IVP ONE (07:50)
[2022-02-28] MEDS ORDERED: fentaNYL (PF) 50 MCG/ML 50 ML VIAL ONE (07:54)
[2022-02-28] MEDS ORDERED: MIDAZOLAM 2 MG/2 ML VIAL ONE (07:54)
[2022-02-28] MEDS ORDERED: PROPOFOL 10 MG/ML 20 ML VIAL IV ONE (07:54)
[2022-02-28] MEDS ORDERED: PHENYLEPHRINE-0.9% NACL SYG 1,000 MCG/10 ML SYRINGE ONE (07:54)
[2022-02-28] MEDS ORDERED: KETAMINE 10 MG/ML 20 ML VIAL ONE (07:54)
[2022-02-28] MEDS: SYMBICORT 80-4.5 MCG INHALER INHALATION SCH (08:06)
[2022-02-28] MEDS: IPRATROPIUM 0.5 MG/2.5 ML NEBU INHALATION SCH ×3 (08:06→16:07)
[2022-02-28] MEDS ORDERED: LIDOCAINE 1% INJ 10MG/ML (20 ML MDV) SQ ONE ×2 (08:24)
--- NOTE | 2022-02-28 08:51 | P.OP ---
Date of Procedure: 02/28/22 Preoperative Diagnosis: 1. Lung Cancer 2. Chylothorax Postoperative Diagnosis: Same Procedure(s) Performed: Right sided pleurx insertion with flouroscopy Implants: PleurX Anesthesia: local Surgeon: Andrew Drew Estimated Blood Loss (ml): 5 Pathology: other Condition: stable Disposition: PACU Indications for Procedure: This patient is a 61 year-old male who was diagnosed with the right lower lobe lung nodule. He previously underwent right lower lobectomy with very limited mediastinal lymph node dissection. Despite this, he developed a pleural effusion and was admitted to the hospital with bilateral pulmonary embolus. The pleural effusion was tapped and triglyceride level was high. A low output chylothorax was suspected and the decision was made to insert a pleurX and send the patient home on anticoagulation for PE and low fat diet. Operative Findings: Minimal 20cc of cloudy yellow fluid evacuated from right pleural space. Description of Procedure: The patient was brought to the operating room and placed on the table in the supine position. He was sedated and his right chest was prepped and draped in the usual sterile fashion. A time-out was performed and antibiotics were given. 1% lidocaine was used to anesthetize an area in the 5th intercostal space anterior axillary line and a second area anteriorly near the costal margin. A 1cm incision was made anteriorly. The needle was introduced into the chest with return of serous fluid. The guidewire was inserted and position was checked with fluoroscope. The catheter was tunneled from anterior to posterior and inserted into the chest via sheath under vision. The pleura was drained for about 20cc of cloudy fluid which was sent for fluid analysis. The catheter was anchored to the skin with silk and the incision was closed with 3-0 monocryl. A sterile dressing was applied.
[2022-02-28] MEDS ORDERED: APIXABAN 5 MG TAB PO SCH (09:00)
--- NOTE | 2022-02-28 09:28 | XR ---
EXAMINATION TYPE: XR chest 1V portable DATE OF EXAM: 02/28/2022 8:59 AM COMPARISON: Chest radiographs from 02/27/2022, CT chest 02/27/2022 TECHNIQUE: XR chest 1V portable Frontal view of the chest. CLINICAL INDICATION:Male, 61 years old with history of post pleurx cath insertion; FINDINGS: Lungs/Pleura: No pneumothorax. Small right pleural effusion. Bibasilar patchy airspace opacities. Und erlying emphysematous changes. Pulmonary vascularity: Unremarkable. Heart/mediastinum: Cardiomediastinal silhouette is stable. Atherosclerotic calcifications are seen i n the aorta. Musculoskeletal: No acute osseous pathology. Other findings: None Lines/Tubes: Interval placement of right-sided Pleurx catheter with tip directed towards the hilum. IMPRESSION: 1. Interval placement of right Pleurx catheter without pneumothorax. 2. Small right pleural effusion with bibasilar patchy airspace opacities which may represent atelect asis versus infiltrate. 3. COPD changes.
[2022-02-28] MEDS: SENNOSIDES-DOCUSATE SODIUM 1 EACH TAB PO SCH (10:06)
[2022-02-28] MEDS: PANTOPRAZOLE 40 MG TABLET PO SCH (10:06)
[2022-02-28] MEDS: METOPROLOL TARTRATE 12.5 MG TAB PO SCH (10:06)
--- NOTE | 2022-02-28 10:34 | FL ---
Intraoperative/procedural fluoroscopic services were provided for right Pleurx catheter placement. To lilly fluoroscopy time is 1 second with a total of 1 submitted image to PACS. Please see the operative note for further details.
[2022-02-28 10:39] LABS: African American GFR (CKD) >90 (>60 ml/min/1.73 sqM); Anion Gap 9 mmol/L; Blood Urea Nitrogen 9 mg/dL (9-20); Calcium 7.8 mg/dL (8.4-10.2); Carbon Dioxide 24 mmol/L (22-30); Chloride 100 mmol/L (98-107); Glucose 94 mg/dL (74-99); Non-African American GFR(CKD) >90 (>60 ml/min/1.73 sqM); Potassium 4.8 mmol/L (3.5-5.1); Sodium 133 mmol/L (137-145)
[2022-02-28 10:50] LABS: Basophils # (A) 0.1 k/uL (0-0.2); Basophils % (A) 1 %; Eosinophils # (A) 0.1 k/uL (0-0.7); Eosinophils % (A) 2 %; HCT 34.9 % (39.0-53.0); HGB 11.2 gm/dL (13.0-17.5); Hypochromasia Marked; Lymphocytes # (A) 1.5 k/uL (1.0-4.8); Lymphocytes % (A) 16 %; MCH 31.1 pg (25.0-35.0); MCHC 32.2 g/dL (31.0-37.0); MCV 96.4 fL (80.0-100.0); Mean Platelet Volume 8.4; Monocytes # (A) 0.7 k/uL (0-1.0); Monocytes % (A) 7 %; Neutrophils % (A) 74 %; Platelet Count 421 k/uL (150-450); RBC 3.62 m/uL (4.30-5.90); RDW 14.4 % (11.5-15.5); WBC 9.5 k/uL (3.8-10.6)
[2022-02-28 11:01] LABS: Cholesterol,BF Source Body Fluid; Glucose, BF Source Body Fluid; LDH, Body Fluid Source Body Fluid; T. Protein, Body Fluid Source Body Fluid
[2022-02-28 13:56] VITALS: PULSE 94; RESP 16
--- NOTE | 2022-02-28 15:52 | P.PN ---
Subjective Progress Note Date: 02/28/22 The patient is seen today 02/28/2022 in follow-up on the selective care unit. He is currently sitting up in bed. Awake and alert in no acute distress. He did undergo a right-sided Pleurx catheter placement for his chylothorax. He remains on a low-fat diet. He is continuing to maintain good O2 saturations in the 90s on 3 L/m per nasal cannula. Surgical wound is dry and intact. Chest x- ray revealed interval placement of a right-sided Pleurx catheter without pneumothorax. Small right effusion with patchy by basilar airspace opacities. Atelectasis versus infiltrate. COPD changes. Blood culture reveals no growth. Pleural fluid cultures pending. White count 9.5. Hemoglobin 11.2. Sodium 133. Potassium 4.8. BUN 9. Creatinine 0.60. He remains on Symbicort, albuterol, anticoagulated with Eliquis. Objective - Vital Signs Vital signs: Vital Signs Temp 97.3 F L 02/28/22 09:35 Pulse 94 02/28/22 12:00 Resp 16 02/28/22 12:00 BP 108/65 02/28/22 12:00 Pulse Ox 94 L 02/28/22 12:00 FiO2 Intake & Output 02/27/22 02/28/22 02/28/22 18:59 06:59 18:59 Intake Total 1198 320 450 Output Total 1 Balance 1198 320 449 Intake: IV 450 Intake, IV Titration 80 Amount Sodium Chloride 0.9% 1, 80 000 ml @ 20 mls/hr IV . Q24H [facility] Rx#:[id number] Oral 1198 240 Output: Estimated Blood Loss 1 Other: Voiding Method Toilet Toilet # Voids 2 - Exam CONSTITUTIONAL: Awake and alert, pleasant 61-year-old male patient, on 3 L nasal cannula, appears comfortable, cooperative, well-developed, well-nourished, no pain, no acute distress EYES: Pupils equal, round, reactive to light, normal ocular movement ENT: Moist mucous membranes without oral lesions present NECK: No masses, no bruits, trachea midline RESPIRATORY: Lungs sounds diminished bilaterally, right greater than left. Respirations even, nonlabored. Strong cough. Right-sided Pleurx catheter placed today CARDIOVASCULAR: S1, S2 present. Regular rate and rhythm, sinus tach on telemetry. Palpable peripheral pulses bilaterally. No edema present. No calf pain or tenderness noted. GASTROINTESTINAL: Abdomen soft, nontender, nondistended without masses or organomegaly noted. There is no rebound or guarding present. Active bowel sounds present 4 quadrants. GENITOURINARY: Deferred INTEGUMENTARY: Skin is warm and dry with evidence of good perfusion. Right thoracotomy incision well healed. New right-sided Pleurx catheter placed NEUROLOGIC: Cranial nerves II through XII intact, normal coordination, no o bvious motor or sensory deficits, speech is normal MUSKULOSKELETAL: Able to move all extremities, strength equal bilaterally, normal posture PSYCHIATRIC: Alert and oriented to person place and time, appropriate affect, intact judgment and insight - Labs CBC & Chem 7: 02/28/22 09:39 02/28/22 09:39 Labs: Abnormal Lab Results - Last 24 Hours (Table) 02/28/22 02/28/22 Range/Units 09:39 09:39 RBC 3.62 L (4.30-5.90) m/uL Hgb 11.2 L (13.0-17.5) gm/dL Hct 34.9 L (39.0-53.0) % Sodium 133 L (137-145) mmol/L Creatinine 0.60 L (0.66-1.25) mg/dL Calcium 7.8 L (8.4-10.2) mg/dL Assessment and Plan Assessment: Acute bilateral pulmonary embolism post thoracotomy and right lower lobe resection. 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 His marijuana use History of coronary artery disease with previous SC and previous coronary stenting of the LAD Hypertension Hyperlipidemia Plan The patient was seen and evaluated Chest x-ray, labs and medications reviewed Pleurx catheter placed right chest today, educated on its use Cleared for discharge from the pulmonary standpoint Follow up in the office in 1 week I have personally seen and examined the patient, performed the documentation and the assessment and plan as written. Number of minutes spent on the visit: 20.
[2022-02-28 17:26] VITALS: BP 103/68; TEMP 97.7
== END 2022-02-28 16:52 | disposition home or self-care (01) | DRG 299 ==
LOC: EC 04:55 → 2SICU 06:41 → 3SCARD 15:18
PROVIDERS: ADMIT Hospitalist; ATTEND Hospitalist
PROC: 0W993ZX Drainage of Right Pleural Cavity, Percutaneous Approach, Diagnostic (ICD-10-PCS; principal; 2022-02-22)
PROC: 0W9930Z Drainage of Right Pleural Cavity with Drainage Device, Percutaneous Approach (ICD-10-PCS; 2022-02-28)
DX: T81.718A Complication of other artery following a procedure, not elsewhere classified, initial encounter (principal); J96.21 Acute and chronic respiratory failure with hypoxia; C34.31 Malignant neoplasm of lower lobe, right bronchus or lung; J94.0 Chylous effusion; J98.11 Atelectasis; I26.94 Multiple subsegmental thrombotic pulmonary emboli without acute cor pulmonale; Z90.2 Acquired absence of lung [part of]; D72.828 Other elevated white blood cell count; E78.5 Hyperlipidemia, unspecified; F41.9 Anxiety disorder, unspecified; I10 Essential (primary) hypertension; I25.10 Atherosclerotic heart disease of native coronary artery without angina pectoris; K21.9 Gastro-esophageal reflux disease without esophagitis; I25.2 Old myocardial infarction; R11.0 Nausea; I27.20 Pulmonary hypertension, unspecified; I49.3 Ventricular premature depolarization; Z99.81 Dependence on supplemental oxygen; J43.9 Emphysema, unspecified; Z79.82 Long term (current) use of aspirin; Z79.899 Other long term (current) drug therapy; Z82.49 Family history of ischemic heart disease and other diseases of the circulatory system; Z87.442 Personal history of urinary calculi; Z95.5 Presence of coronary angioplasty implant and graft; R59.0 Localized enlarged lymph nodes; Z28.310 Unvaccinated for COVID-19; Z28.21 Immunization not carried out because of patient refusal; Z60.2 Problems related to living alone; Z71.3 Dietary counseling and surveillance; Z87.891 Personal history of nicotine dependence
CPT/HCPCS: 36415; 70470; 70553; 71045; 71046; 71250; 71275; 76000; 80048; 80053; 82465; 82945; 83615; 83880; 84145; 84157; 84478; 84484; 85025; 85027; 85379; 85610; 85730; 87040; 87070; 87205; 88108; 88305; 88341; 88342; 89050; 93005; 93306; 93970; 94640; 94760; 96365; 96366; 96367; 96375; 99291

== ENCOUNTER → 2022-03-18 | Outpatient (CLI) | payer OTHER ==
--- NOTE | 2022-03-20 09:29 | PE ---
EXAMINATION TYPE: PET CT fusion skull to thigh DATE OF EXAM: 03/18/2022 CLINICAL INDICATION:Male, 61 years old with history of C34.91 Lung Ca TECHNIQUE: Following the intravenous administration of 11.1 mCi of F-18 FDG, whole body images are performed from the skull base to the midthigh. Images are reviewed on the computer in the coronal, a xial, and sagittal planes. Reconstructed rotating images are created on independent workstation and reviewed on the computer. A non-contrast CT is performed in conjunction with the PET scan. Glucose level 114 mg/dL COMPARISON: CT 02/27/2022, PET/CT 08/27/2021, FINDINGS: Mediastinal SUV mean is 1.4. Hepatic parenchyma SUV mean is 1.6. SKULL BASE AND NECK: No suspicious FDG activity. CHEST, MEDIASTINUM, AND HILAR REGION: Mediastinal lymph nodes with increased FDG activity: * Right upper paratracheal max SUV 5.7, 1.6 measuring 11 mm previously 8 mm. * Subcarinal lymph node max SUV 18.1 previously 2.0 measuring 3.1 x 1.7 cm previously 0.6 cm in shor t axis. * Additional Mediastinal lymph nodes with mild increased FDG activity including right low paratrache al max SUV 2.7, previously 1.7. There is mild increased FDG activity medially in the right middle lobe max SUV 3.3 which could relate to atelectasis. Mild physiologic uptake seen within the intercostal muscles bilaterally. ABDOMEN AND PELVIS: No suspicious FDG activity. OSSEOUS STRUCTURES: No suspicious FDG activity. OTHER CT: Atherosclerosis of the arterial vasculature there is a right tunneled chest tube. Thickened pleura on the right with small pleural effusion is present. Large right inguinal hernia containing l oops of small bowel. Fat containing left inguinal hernia. IMPRESSION: Progression of disease with increased size and metabolic activity of mediastinal lymph nodes.
== END | disposition home or self-care (01) ==
LOC: RADPETMAIN 14:41
PROVIDERS: ATTEND Internal Medicine Hematology & Oncology
DX: C34.91 Malignant neoplasm of unspecified part of right bronchus or lung (principal)
CPT/HCPCS: 78815; A9552

== ENCOUNTER → 2022-03-22 | Outpatient (CLI) | payer OTHER ==
--- NOTE | 2022-03-22 10:57 | XR ---
EXAMINATION TYPE: XR chest 2V DATE OF EXAM: 03/22/2022 COMPARISON: 02/28/2022 INDICATION: Short of breath TECHNIQUE: Frontal and lateral views of the chest are obtained. FINDINGS: The heart size is normal. The pulmonary vasculature is somewhat prominent. There is a small to moderate right pleural effusion. Catheters present on the right. Diffuse increase d lung markings at the lung bases bilaterally.. IMPRESSION: 1. Small to moderate right pleural effusion with catheter present on right. 2. Bibasilar increased lung markings, similar to comparison
== END | disposition home or self-care (01) ==
LOC: RADXRMAIN 10:04
PROVIDERS: ATTEND Thoracic Surgery (Cardiothoracic Vascular Surgery)
DX: R06.02 Shortness of breath (principal)
CPT/HCPCS: 71046

== ENCOUNTER 2022-06-26 12:22 | Inpatient (IN) | payer OTHER ==
[2022-06-26] MEDS ORDERED: IPRATROPIUM-ALBUTEROL 3 ML NEB INHALATION STA (12:48)
[2022-06-26] MEDS ORDERED: SODIUM CHLORIDE 0.9% 1,000 ML IV STA (12:48)
[2022-06-26] MEDS ORDERED: SODIUM CHLORIDE 0.9% 500 ML 500 ML IV STA (12:48)
[2022-06-26] MEDS ORDERED: methylPREDNISolone SOD SUCCI 125 MG/2 ML VIAL IV STA (12:49)
--- NOTE | 2022-06-26 12:52 | ED ---
SOB HPI - General Chief Complaint: Shortness of Breath Stated Complaint: SOB Time Seen by Provider: 06/26/22 12:38 Source: patient, RN notes reviewed Mode of arrival: ambulatory Limitations: no limitations - History of Present Illness Initial Comments: 62-year-old male with a history of small cell lung cancer COPD recent hospitalization where he found to be neutropenic who presents with complaints of 2 days of progressively worsening shortness of breath with cough minimal phlegm production chills but no fevers or sweats. Some chest pain with cough and deep breathing. He is unable to keep his oxygenation up at home family states his action take only goes up to 5 L which is what he is on. Very dyspneic with marked exertional dyspnea with conversation. No other current complaints or modifying factors MD Complaint: shortness of breath, cough - Related Data Home Medications Medication Instructions Recorded Confirmed Fluticasone/Umeclidin/Vilanter 1 puff INHALATION RT-HS 02/02/22 06/26/22 [Trelegy Ellipta 100-62.5-25] Protandim Life Advantage 2 cap PO DAILY 02/21/22 06/26/22 Omeprazole [PriLOSEC] 20 mg PO AC-BRKFST 04/21/22 06/26/22 Simethicone [Gas-X] 125 mg PO ACHS PRN 04/21/22 06/26/22 Albuterol Inhaler [Ventolin Hfa 1 - 2 puff INHALATION RT-Q6H PRN 06/08/22 Inhaler] Albuterol Nebulized [Ventolin 2.5 mg INHALATION RT-QID PRN 06/08/22 06/26/22 Nebulized] Apixaban [Eliquis] 5 mg PO BID 06/08/22 06/26/22 Lidocaine Viscous 2% [Xylocaine 15 ml PO AC-TID PRN 06/08/22 06/26/22 Viscous] Multivitamins, Thera [Multivitamin 1 tab PO DAILY 06/08/22 06/26/22 (formulary)] LORazepam [Ativan] 0.5 mg PO DAILY PRN 06/26/22 06/26/22 Previous Rx's Medication Instructions Recorded Atorvastatin [Lipitor] 80 mg PO HS #90 tab 07/03/14 Nitroglycerin Sl Tabs [Nitrostat] 0.4 mg SUBLINGUAL Q5M PRN #25 tab 07/03/14 Acetaminophen Tab [Tylenol] 650 mg PO Q6HR PRN tab 06/17/22 Ipratropium-Albuterol Nebulize 3 ml INHALATION RT-Q2H PRN each 06/17/22 [Duoneb 0.5 mg-3 mg/3 ml Soln] Ipratropium-Albuterol Nebulize 3 ml INHALATION RT-QID #100 each 06/17/22 [Duoneb 0.5 mg-3 mg/3 ml Soln] Metoprolol Tartrate [Lopressor] 12.5 mg PO BID 30 Days #60 tab 06/17/22 Allergies Allergy/AdvReac Type Severity Reaction Status Date / Time No Known Allergies Allergy Verified 06/26/22 16:43 Review of Systems ROS Statement: Those systems with pertinent positive or pertinent negative responses have been documented in the HPI. ROS Other: All systems not noted in ROS Statement are negative. Past Medical History Past Medical History: Coronary Artery Disease (CAD), Cancer, GERD/Reflux, Hyperlipidemia, Hypertension, Myocardial Infarction ([place]) Additional Past Medical History / Comment(s): PET SCAN ON 08/27/21 SHOWS RIGHT BASILAR LUNG NODULE. ( NSTEMI 07-02-14), KIDNEY STONES. RT INGUINAL HERNIA, emphysema Last Myocardial Infarction Date:: DATE UNKNOWN History of Any Multi-Drug Resistant Organisms: None Reported Past Surgical History: Appendectomy, Heart Catheterization With Stent, Tonsillectomy Additional Past Surgical History / Comment(s): 1989 HAD POLYP REMOVED FROM THROAT-BENIGN, 07-02-14 STENT TO LAS, recent aide. bronchoscopy; right lower lobectomy through thoracotomy approach 02/04/2022 Past Anesthesia/Blood Transfusion Reactions: No Reported Reaction Date of Last Stent Placement:: 07-02-14 Past Psychological History: No Psychological Hx Reported Smoking Status: Former smoker Past Alcohol Use History: None Reported Past Drug Use History: Marijuana - Past Family History Father Family Medical History: Myocardial Infarction ([place]) Additional Family Medical History / Comment(s): from massive mi age 42 Mother Family Medical History: Unable to Obtain General Exam - General Exam Comments Initial Comments: Is a well-developed thin appearing male who is awake alert oriented 4 demonstrate evidence of respiratory distress Limitations: no limitations General appearance: alert, anxious Head exam: Present: atraumatic, normocephalic, normal inspection Eye exam: Present: normal appearance, PERRL, EOMI. Absent: scleral icterus, conjunctival injection, periorbital swelling ENT exam: Present: mucous membranes dry Neck exam: Present: normal inspection, full ROM, other. Absent: tenderness, meningismus, lymphadenopathy Respiratory exam: Present: rhonchi (Work-related his breath sounds with rhonchi in the left base), decreased breath sounds (Sensitivity or bruits). Absent: respiratory distress, wheezes, rales, stridor Cardiovascular Exam: Present: normal rhythm, tachycardia, normal heart sounds. Absent: systolic murmur, diastolic murmur, rubs, gallop, clicks GI/Abdominal exam: Present: soft, normal bowel sounds. Absent: distended, tenderness, guarding, rebound, rigid Extremities exam: Present: full ROM, normal capillary refill, pedal edema (Trace edema). Absent: tenderness, joint swelling, calf tenderness Back exam: Present: normal inspection Neurological exam: Present: alert, oriented X3, CN II-XII intact Psychiatric exam: Present: normal affect, normal mood Skin exam: Present: warm, dry, intact, normal color. Absent: rash Course Vital Signs 06/26/22 06/26/22 06/26/22 12:33 12:53 13:03 Temperature 98.3 F Pulse Rate 127 H 120 H 120 H Respiratory 24 22 24 Rate Blood Pressure 90/62 101/67 O2 Sat by Pulse 75 L 94 L Oximetry 06/26/22 06/26/22 06/26/22 14:07 15:05 17:00 Temperature Pulse Rate 111 H 96 111 H Respiratory 18 20 20 Rate Blood Pressure 102/73 133/97 102/72 O2 Sat by Pulse 100 96 94 L Oximetry 06/26/22 18:14 Temperature 98.1 F Pulse Rate 108 H Respiratory 18 Rate Blood Pressure 100/84 O2 Sat by Pulse 98 Oximetry - Reevaluation(s) Reevaluation #1: 06/26/22 18:45 Reevaluation the patient he did state that he felt improved after the initial treatment. Medical Decision Making - Medical Decision Making I did discuss findings with patient family also with Dr. Patiño who did come to s ee the patient patient be admitted with consultation by pulmonary medicine as well as oncology. He is feeling much improved at this time however he does have right lower lobe infiltrate with right-sided effusion no known lung cancer tachycardia elevated lactic acid. The lactic acid is likely elevated secondary to poor perfusion from dehydration not from infectious process.Was pt. sent in by a medical professional or institution ([facility] Valladares, [employer]N SHELLER OPERATOR, urgent care, hospital, or correction...) When possible be specific @ -[No] Did you speak to anyone other than the patient for history (EMS, parent, family, police, friend...)? What history was obtained from this source @ -[No] Did you review nursing and triage notes (agree or disagree)? Why? @ -[I reviewed and agree with nursing and triage notes] Were old charts reviewed (outside hosp., previous admission, EMS record, old EKG, old radiological studies, urgent care reports/EKG's, correction records)? Report findings @ old charts were reviewed] Differential Diagnosis (chest pain, altered mental status, abdominal pain women, abdominal pain men, vaginal bleeding, weakness, fever, dyspnea, syncope, headache, dizziness, GI bleed, back pain, seizure, CVA, palpatations, mental health, musculoskeletal)? @ -[Dyspnea secondary to pneumonia secondary to a PE secondary to COPD exacerbation the greater to anemia] EKG interpreted by me (3pts min.). @ -[As above] X-rays interpreted by me (1pt min.). @ -[As above] CT interpreted by me (1pt min.). @ -[As above] U/S interpreted by me (1pt. min.). @ -[None done] What testing was considered but not performed or refused? (CT, X-rays, U/S, labs)? Why? @ -[None] What meds were considered but not given or refused? Why? @ -[None] Did you discuss the management of the patient with other professionals (professionals i.e. REDDY Valladares, CORN SHELLER OPERATOR, lab, RT, psych nurse, social staff worker, certified technician specialist, teacher, employee service officer, shoe parts caser)? Give summary @ -[No] Was smoking cessation discussed for >3mins.? @ -[No] Was critical care preformed (if so, how long)? @ -[S 31 minutes] Were there social determinants of health that impacted care today? How? (Homelessness, low income, unemployed, alcoholism, drug addiction, transportation, low edu. Level, literacy, decrease access to med. care, fpc, rehab)? @ -[No] Was there de-escalation of care discussed even if they declined (Discuss DNR or withdrawal of care, Hospice)? DNR status @ -[No] What co-morbidities impacted this encounter? (DM, HTN, Smoking, COPD, CAD, Cancer, CVA, ARF, Chemo, Hep., AIDS, mental health diagnosis, sleep apnea, mo rbid obesity)? @ -Lung cancer, COPD] Was patient admitted / discharged? Hospital course, mention meds given and route, prescriptions, significant lab abnormalities, going to OR and other pertinent info. @ -[hospital course] admitted Undiagnosed new problem with uncertain prognosis? @ -[No] Drug Therapy requiring intensive monitoring for toxicity (Heparin, Nitro, Insulin, Cardizem)? @ -[No] Were any procedures done? @ -[No] Diagnosis/symptom? @ -[default] Acute, or Chronic, or Acute on Chronic? @ -[default] Uncomplicated (without systemic symptoms) or Complicated (systemic symptoms)? @ -[default] Side effects of treatment? @ -[No] Exacerbation, Progression, or Severe Exacerbation? @ -[No] Poses a threat to life or bodily function? How? (Chest pain, [place], [place], pneumonia, PE, COPD, DKA, ARF, appy, cholecystitis, CVA, Diverticulitis, Homicidal, Suicidal, threat to staff... and all critical care pts) @ -[Yes of not treated, COPD, lung cancer] - Lab Data Result diagrams: 06/26/22 14:02 06/26/22 13:25 Lab Results 06/26/22 06/26/22 06/26/22 Range/Units 13:25 13:25 13:25 WBC (3.8-10.6) k/uL RBC (4.30-5.90) m/uL Hgb (13.0-17.5) gm/dL Hct (39.0-53.0) % MCV (80.0-100.0) fL MCH (25.0-35.0) pg MCHC (31.0-37.0) g/dL RDW (11.5-15.5) % Plt Count (150-450) k/uL MPV Neutrophils % % Lymphocytes % % Monocytes % % Eosinophils % % Basophils % % Neutrophils # (1.3-7.7) k/uL Lymphocytes # (1.0-4.8) k/uL Monocytes # (0-1.0) k/uL Eosinophils # (0-0.7) k/uL Basophils # (0-0.2) k/uL Hypochromasia Poikilocytosis Anisocytosis Microcytosis Macrocytosis PT (9.0-12.0) sec INR (<1.2) APTT (22.0-30.0) sec D-Dimer (<0.60) mg/L FEU Sodium 131 L (137-145) mmol/L Potassium 4.0 (3.5-5.1) mmol/L Chloride 101 (98-107) mmol/L Carbon Dioxide 23 (22-30) mmol/L Anion Gap 7 mmol/L BUN 10 (9-20) mg/dL Creatinine 0.60 L (0.66-1.25) mg/dL Est GFR (CKD-EPI)AfAm >90 (>60 ml/min/1.73 sqM) Est GFR (CKD-EPI)NonAf >90 (>60 ml/min/1.73 sqM) Glucose 98 (74-99) mg/dL Lactic Ac Sepsis Rflx Plasma Lactic Acid Darek 2.3 H* (0.7-2.0) mmol/L Calcium 7.9 L (8.4-10.2) mg/dL Magnesium 1.9 (1.6-2.3) mg/dL Total Bilirubin 1.2 (0.2-1.3) mg/dL AST 35 (17-59) U/L ALT 39 (4-49) U/L Alkaline Phosphatase 116 (38-126) U/L Troponin I <0.012 (0.000-0.034) ng/mL NT-Pro-B Natriuret Pep pg/mL Total Protein 6.0 L (6.3-8.2) g/dL Albumin 3.2 L (3.5-5.0) g/dL Influenza Type A (PCR) (Not Detectd) Influenza Type B (PCR) (Not Detectd) RSV (PCR) (Not Detectd) SARS-CoV-2 (PCR) (Not Detectd) 06/26/22 06/26/22 06/26/22 Range/Units 13:25 14:02 14:06 WBC 8.0 (3.8-10.6) k/uL RBC 3.10 L (4.30-5.90) m/uL Hgb 9.2 L (13.0-17.5) gm/dL Hct 27.4 L (39.0-53.0) % MCV 88.5 (80.0-100.0) fL MCH 29.5 (25.0-35.0) pg MCHC 33.3 (31.0-37.0) g/dL RDW 25.8 H (11.5-15.5) % Plt Count 188 D (150-450) k/uL MPV 8.1 Neutrophils % 74 % Lymphocytes % 14 % Monocytes % 8 % Eosinophils % 1 % Basophils % 0 % Neutrophils # 5.9 (1.3-7.7) k/uL Lymphocytes # 1.2 (1.0-4.8) k/uL Monocytes # 0.7 (0-1.0) k/uL Eosinophils # 0.1 (0-0.7) k/uL Basophils # 0.0 (0-0.2) k/uL Hypochromasia Slight Poikilocytosis Moderate Anisocytosis Marked Microcytosis Slight Macrocytosis Slight PT (9.0-12.0) sec INR (<1.2) APTT (22.0-30.0) sec D-Dimer (<0.60) mg/L FEU Sodium (137-145) mmol/L Potassium (3.5-5.1) mmol/L Chloride (98-107) mmol/L Carbon Dioxide (22-30) mmol/L Anion Gap mmol/L BUN (9-20) mg/dL Creatinine (0.66-1.25) mg/dL Est GFR (CKD-EPI)AfAm (>60 ml/min/1.73 sqM) Est GFR (CKD-EPI)NonAf (>60 ml/min/1.73 sqM) Glucose (74-99) mg/dL Lactic Ac Sepsis Rflx Plasma Lactic Acid Darek (0.7-2.0) mmol/L Calcium (8.4-10.2) mg/dL Magnesium (1.6-2.3) mg/dL Total Bilirubin (0.2-1.3) mg/dL AST (17-59) U/L ALT (4-49) U/L Alkaline Phosphatase (38-126) U/L Troponin I (0.000-0.034) ng/mL NT-Pro-B Natriuret Pep 555 pg/mL Total Protein (6.3-8.2) g/dL Albumin (3.5-5.0) g/dL Influenza Type A (PCR) Not Detected (Not Detectd) Influenza Type B (PCR) Not Detected (Not Detectd) RSV (PCR) Not Detected (Not Detectd) SARS-CoV-2 (PCR) Not Detected (Not Detectd) 06/26/22 06/26/22 Range/Units 14:32 15:58 WBC (3.8-10.6) k/uL RBC (4.30-5.90) m/uL Hgb (13.0-17.5) gm/dL Hct (39.0-53.0) % MCV (80.0-100.0) fL MCH (25.0-35.0) pg MCHC (31.0-37.0) g/dL RDW (11.5-15.5) % Plt Count (150-450) k/uL MPV Neutrophils % % Lymphocytes % % Monocytes % % Eosinophils % % Basophils % % Neutrophils # (1.3-7.7) k/uL Lymphocytes # (1.0-4.8) k/uL Monocytes # (0-1.0) k/uL Eosinophils # (0-0.7) k/uL Basophils # (0-0.2) k/uL Hypochromasia Poikilocytosis Anisocytosis Microcytosis Macrocytosis PT 11.6 (9.0-12.0) sec INR 1.1 (<1.2) APTT 25.0 (22.0-30.0) sec D-Dimer 1.27 H (<0.60) mg/L FEU Sodium (137-145) mmol/L Potassium (3.5-5.1) mmol/L Chloride (98-107) mmol/L Carbon Dioxide (22-30) mmol/L Anion Gap mmol/L BUN (9-20) mg/dL Creatinine (0.66-1.25) mg/dL Est GFR (CKD-EPI)AfAm (>60 ml/min/1.73 sqM) Est GFR (CKD-EPI)NonAf (>60 ml/min/1.73 sqM) Glucose (74-99) mg/dL Lactic Ac Sepsis Rflx Y Plasma Lactic Acid Darek (0.7-2.0) mmol/L Calcium (8.4-10.2) mg/dL Magnesium (1.6-2.3) mg/dL Total Bilirubin (0.2-1.3) mg/dL AST (17-59) U/L ALT (4-49) U/L Alkaline Phosphatase (38-126) U/L Troponin I (0.000-0.034) ng/mL NT-Pro-B Natriuret Pep pg/mL Total Protein (6.3-8.2) g/dL Albumin (3.5-5.0) g/dL Influenza Type A (PCR) (Not Detectd) Influenza Type B (PCR) (Not Detectd) RSV (PCR) (Not Detectd) SARS-CoV-2 (PCR) (Not Detectd) - EKG Data -: EKG Interpreted by Me EKG Comments: EKG interpreted by me sinus tachycardia rate 132. Interval 139 QRS duration 95 QT since QTC to 76/354 pulmonary disease pattern left anterior fascicular block - Radiology Data Interpreted by me: Imaging interpreted by me x-ray shows evidence a right lower lobe infiltrate computed tomography scan to rule out PE did rule out PE however is evidence of consolidation infiltrate and progression of the known lung cancer. Critical Care Time Critical Care Time: Yes Total Critical Care Time: 31 Disposition Clinical Impression: Lung cancer, Pneumonia, COPD exacerbation, Anemia, Elevated lactic acid level Disposition: ADMITTED IP TO THIS HOSP Condition: Fair Referrals: Alethea Dior MD [Primary Care Provider] - 1-2 days Time of Disposition: 18:25 Decision Date: 06/26/22 Decision Time: 18:25
--- NOTE | 2022-06-26 13:29 | XR ---
EXAMINATION TYPE: XR chest 2V DATE OF EXAM: 06/26/2022 1:17 PM COMPARISON: Chest radiographs from 05/17/2022 TECHNIQUE: XR chest 2V Frontal and lateral views of the chest. CLINICAL INDICATION:Male, 62 years old with history of difficulty breathing; FINDINGS: Lungs/Pleura: Multifocal airspace opacities. No evidence of pneumothorax. Blunting of right costophre mele angle. Pulmonary vascularity: Unremarkable. Heart/mediastinum: Cardiomediastinal silhouette is unremarkable. Musculoskeletal: No acute osseous pathology. IMPRESSION: 1. Multifocal airspace opacities concerning for pneumonia versus congestive heart failure, correlate with serum BNP. 2. Right pleural effusion, similar to prior.
[2022-06-26 14:20] LABS: Anisocytosis Marked; Basophils % (A) 0 %; Eosinophils # (A) 0.1 k/uL (0-0.7); Eosinophils % (A) 1 %; HCT 27.4 % (39.0-53.0); HGB 9.2 gm/dL (13.0-17.5); Hypochromasia Slight; Lymphocytes # (A) 1.2 k/uL (1.0-4.8); Lymphocytes % (A) 14 %; MCH 29.5 pg (25.0-35.0); MCHC 33.3 g/dL (31.0-37.0); MCV 88.5 fL (80.0-100.0); Macrocytosis Slight; Mean Platelet Volume 8.1; Microcytosis Slight; Monocytes # (A) 0.7 k/uL (0-1.0); Monocytes % (A) 8 %; Neutrophils # (A) 5.9 k/uL (1.3-7.7); Neutrophils % (A) 74 %; Poikilocytosis Moderate; RDW 25.8 % (11.5-15.5)
[2022-06-26 14:21] LABS: Platelet Count 188 k/uL (150-450)
[2022-06-26 14:24] LABS: ALT 39 U/L (4-49); AST 35 U/L (17-59); African American GFR (CKD) >90 (>60 ml/min/1.73 sqM); Albumin 3.2 g/dL (3.5-5.0); Alkaline Phosphatase 116 U/L (38-126); Anion Gap 7 mmol/L; Blood Urea Nitrogen 10 mg/dL (9-20); Calcium 7.9 mg/dL (8.4-10.2); Carbon Dioxide 23 mmol/L (22-30); Chloride 101 mmol/L (98-107); Glucose 98 mg/dL (74-99); Magnesium 1.9 mg/dL (1.6-2.3); Non-African American GFR(CKD) >90 (>60 ml/min/1.73 sqM); Sodium 131 mmol/L (137-145); Total Bilirubin 1.2 mg/dL (0.2-1.3)
[2022-06-26 16:29] LABS: INR 1.1 (<1.2); Prothrombin Time 11.6 sec (9.0-12.0)
--- NOTE | 2022-06-26 18:15 | CT ---
EXAMINATION TYPE: CT angio chest DATE OF EXAM: 06/26/2022 COMPARISON: 06/08/2022 HISTORY: SOB, hx lung ca, Suspect PE CT DLP: 302.3 mGycm Automated exposure control for dose reduction was used. CONTRAST: Performed with IV Contrast, patient injected with 100 mL of Isovue 370. Images obtained from the thoracic inlet to the diaphragm with the IV contrast. There are 3-D post pro cessed images. There is extensive pulmonary emphysema. There is airspace consolidation in the right mid and lower herman ng field. There is loculated right pleural effusion. There is narrowing of the distal right pulmonary artery with increased density posterior right pulmonary hilum that is consistent with tumor mass. No significant arterial flow seen in the basilar branches of the right lower lobe pulmonary artery. Thoracic aorta appears intact. No aneurysm or dissection. There is enlarged left bronchial lymph node s up to 2 cm. The thoracic spine is intact. No compression fracture. Sternum is intact. No evidence of rib fracture . IMPRESSION: Extensive infiltrate right lower lobe with loculated pleural fluid slightly increased compared to old exam. There is apparent tumor encasement of the right pulmonary artery on the posterior wall. There is tumor encasement of the right lower lobe pulmonary veins with occlusion. There is bilateral enlarg ed lymph nodes at the pulmonary abdirizak and more on the right side. Mass and adenopathy at the pulmonary abdirizak appears increased compared to the old exam. No evidence of filling defect within the pulmonary arteries to suggest pulmonary embolism.
[2022-06-26] MEDS ORDERED: PIPERACILLIN-TAZOBACTAM 3.375 GM in SODIUM CHLORIDE 0.9% 100 ML IVPB STA (18:47)
[2022-06-26] MEDS ORDERED: PNEUMONIA PROTOCOL UTILIZED 1 EACH MISC PO PRN (18:51)
[2022-06-26] MEDS ORDERED: LORazepam 0.5 MG TAB PO PRN (22:45)
[2022-06-26] MEDS: METOPROLOL TARTRATE 12.5 MG TAB PO SCH (22:59)
[2022-06-26] MEDS: APIXABAN 5 MG TAB PO SCH (22:59)
[2022-06-26] MEDS: ATORVASTATIN 80 MG TAB PO SCH (22:59)
--- NOTE | 2022-06-27 03:04 | HP ---
HISTORY AND PHYSICAL CHIEF COMPLAINT: Shortness of breath. HISTORY OF PRESENT ILLNESS: This is a 62-year-old gentleman with past medical history of multiple medical issues including COPD, lung cancer, was recently admitted with acute hypoxic respiratory failure. The patient improved significantly, the patient went home and currently, the patient is complaining of increasing shortness of breath. The patient is unable to even get up and walk a short distance or even talking will cause increasing shortness of breath. The patient came to [facility] the patient is hypoxic and the patient is on nonbreather mask and is admitted for further evaluation and treatment. There is no history of any fever, rigors, or chills at this time. PAST MEDICAL HISTORY: Reviewed include COPD and lung cancer and the rest of the history and rest of the chart is also reviewed. HOME MEDICATIONS: Reviewed Prilosec. Doses and rest of the medications reviewed. ALLERGIES: None. FAMILY HISTORY: History of myocardial infarction in the family. SOCIAL HISTORY: Previous history of smoking, THC. REVIEW OF SYSTEMS: Fourteen-point review is negative as mentioned earlier. PHYSICAL EXAMINATION: VITAL SIGNS: Pulse is 111, blood pressure ntd respirations 18. HEENT: Conjunctivae normal. NECK: No JVD. breathing efforts increased. ABDOMEN: Soft, nontender. LEGS: No edema. NERVOUS SYSTEM: No focal deficits. SKIN: No ulcer, rash, or bleeding. JOINTS: No active deforming arthropathy. LABORATORY DATA: WBC 8. Hemoglobin 10.2. The rest of the labs are reviewed. ASSESSMENT: 1. Chronic obstructive pulmonary disease acute exacerbation with possibly right lower lobe pneumonia with acute hypoxic respiratory failure. 2. History of lung cancer. 3. Hypertension. 4. Hyperlipidemia. 5. Coronary artery disease. 6. Multiple medical issues. RECOMMENDATIONS: This is a 62-year-old gentleman who presented with multiple complex medical issues, we will monitor the patient closely. We will initiate intensive bronchodilator treatment, empiric antibiotics and will consult Pulmonary. Home medication will be continued when they are confirmed. Hematology/Oncology also will be consulted. Overall prognosis extremely guarded because of multiple complex medical issues. See orders for details. IV steroids also will be given. Discussed with the patient. MMODL / IJN: [id number] / MTDD
[2022-06-27] MEDS ORDERED: PIPERACILLIN-TAZOBACTAM 3.375 GM in SODIUM CHLORIDE 0.9% 100 ML IVPB SCH ×3 (04:00)
[2022-06-27] MEDS: methylPREDNISolone SOD SUCCI 125 MG/2 ML VIAL IV SCH ×4 (05:40→18:19)
--- NOTE | 2022-06-27 07:25 | XR ---
EXAMINATION TYPE: XR chest 1V DATE OF EXAM: 06/27/2022 HISTORY: Shortness of breath. COMPARISON: 06/26/2022 TECHNIQUE: Single view of the chest is submitted. FINDINGS: Demonstrated are scattered senescent parenchymal change. Reticulonodular perihilar and basilar infiltrates persist. Small right-sided pleural effusion. The heart is stable. Hilar and mediastinal structures are within normal limits. Degenerative changes are seen of the dorsal spine. IMPRESSION: 1. Stable nonspecific infiltrates noted.
[2022-06-27] MEDS: IPRATROPIUM-ALBUTEROL 3 ML NEB INHALATION PRN ×2 (07:30→11:07)
[2022-06-27] MEDS: IPRATROPIUM 0.5 MG/2.5 ML NEBU INHALATION SCH ×2 (07:30→11:07)
[2022-06-27] MEDS ORDERED: SYMBICORT 80-4.5 MCG INHALER INHALATION SCH (08:00)
[2022-06-27] MEDS: METOPROLOL TARTRATE 12.5 MG TAB PO SCH ×2 (09:08→21:09)
[2022-06-27] MEDS: MULTIVITAMINS, THERA 1 EACH TAB PO SCH (09:08)
[2022-06-27] MEDS: PANTOPRAZOLE 40 MG TABLET PO SCH (09:08)
[2022-06-27] MEDS: APIXABAN 5 MG TAB PO SCH ×2 (09:08→21:09)
[2022-06-27] MEDS ORDERED: NITROGLYCERIN SL TABS 0.4 MG TAB SUBLINGUAL PRN (11:49)
[2022-06-27] MEDS ORDERED: SIMETHICONE 80 MG CHEWABLE PO PRN (11:49)
[2022-06-27] MEDS ORDERED: DEXTROSE 50% SYRINGE 50 ML IVP PRN ×2 (11:50)
[2022-06-27 12:44] LABS: Glucose,Whole Blood 155 mg/dL (70-110)
[2022-06-27] MEDS: BUDESONIDE 1 MG/2 ML NEBU INHALATION SCH ×2 (13:08→21:40)
[2022-06-27] MEDS: FORMOTEROL FUMARATE 20 MCG/2 ML NEBU INHALATION SCH ×2 (13:09→21:40)
[2022-06-27] MEDS: IPRATROPIUM-ALBUTEROL 3 ML NEB INHALATION SCH ×3 (13:09→21:40)
[2022-06-27] MEDS: CEFEPIME 2 GM in SODIUM CHLORIDE 0.9% 100 ML IVPB SCH ×2 (13:16→21:08)
[2022-06-27] MEDS: INSULIN ASPART (NovoLOG) 100 UNIT/ML VIAL SQ SCH ×3 (13:18→21:09)
--- NOTE | 2022-06-27 13:55 | PN ---
PROGRESS NOTE DATE OF SERVICE: 06/27/2022 HISTORY OF PRESENT ILLNESS: This is a 62-year-old gentleman admitted with COPD acute exacerbation; possible pneumonia, is being closely monitored. The patient is seen with shortness of breath. The patient apparently is desaturating on movement or even bending forward. The patient was started on bronchodilators, steroids. The patient is hospitalized recently. REVIEW OF SYSTEMS: A 14-point review is negative as mentioned earlier. CURRENT MEDICATIONS: Reviewed include DuoNeb, dose and rest of medications noted. PHYSICAL EXAMINATION: VITAL SIGNS: Pulse is 102, blood pressure n, respirations 18. LUNGS: Breathing efforts are markedly increased. Bilateral scattered rhonchi and crackles CARDIOVASCULAR: S1-S2. ABDOMEN: Soft. NERVOUS SYSTEM: Diffusely weak. LABORATORY DATA: Reviewed. ASSESSMENT: 1. Chronic obstructive pulmonary disease acute exacerbation with possible right lower pneumonia possibly gram-negative with acute hypoxic respiratory failure on non- rebreather mask. 2. History of lung cancer. 3. Hypertension. 4. Hyperlipidemia. 5. Coronary artery disease. 6. Multiple medical issues. RECOMMENDATIONS AND DISCUSSION: I recommend to continue current medications and symptomatic treatment. Optimize bronchodilator treatment, steroids. I would recommend cefepime cultures. Pulmonary consultation. Infectious Disease consultation. The prognosis guarded because of multiple complex medical issues. Further recommendation to follow. Hematology/Oncology also will be consulted. See orders for details. Prognosis guarded. Discussed the patient at length. See orders for further details. MMODL / IJN: [id number] / MTDD
[2022-06-27] MEDS ORDERED: VANCOMYCIN IV PER PHARMACY 1 EACH MISC MISCELLANE PRN (16:07)
[2022-06-27] MEDS ORDERED: FUROSEMIDE 10 MG/ML 4 ML VIAL IV STA (16:08)
--- NOTE | 2022-06-27 16:21 | P.CNPUL ---
History of Present Illness Consult date: 06/27/22 Reason for consult: dyspnea, hypoxemia History of present illness: A 62-year-old male patient with severe bullous emphysema, a chronic smoker is more than [id number] smoking history. 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 Postop course was complicated by development of chylothorax for which a Pleurx catheter was inserted and ultimately this was removed. His postop course was also complicated by development of pulmonary embolism and the patient was treated with anticoagulants and the patient continues to be on anti-coagulation with Eliquis. PET/CT that was done on 03/18/2022 showed progression of his disease with increase in the size and the metabolic activity of the mediastinal mass/lymphadenopathy. Based on that, the patient was started on treatment and the patient was given systemic chemotherapy with a combination of carboplatinum and TRANSMISSION AND COORDINATION ENGINEER-16. He also completed radiation therapy. Since then, the patient's health has been in generally getting worse. He was hospitalized back in early June with worsening shortness of breath. At that time, he was having issues related to chemotherapy toxicity with pancytopenia. He was quite leukopenic and he was also anemic. His platelet count also dropped. During his hospital stay, the patient gradually improved and he was ultimately discharged home on oxygen. During his hospital stay, he also had a transient ischemic attack with some left-sided weakness. And neuro workup was done including a CT angiogram of the brain that showed no acute abnormalities. The patient ultimately recovered and he was started on aspirate 1 mg by mouth daily. Anti-coagulation was resumed. During this current hospitalization admission, the patient noticed that he was getting more hypoxic. Even with limited amount of activity, his pulse ox was dropping and his oxygen requirements gradually we will going up and he was using 5 L oxygen by nasal cannula. He decided to come into the hospital because of worsening shortness of breath. In the emergency, the patient was found to be quite short of breath. He had minimal amount of sputum production. No fever or chills. No reported chest pain. He was quite dyspneic. No altered mentation. Immediately, a CT angiogram was done and this rules out the possibility of pulmonary embolism. There was new areas of infiltration of the right lower lobe compared to the previous CAT scan and there was also tumor encasement of the right pulmonary artery on the posterior wall. There was also tumor encasement of the right lower lobe pulmonary vein and there was bilateral enlarged lymph nodes at the level of the abdirizak. The mass and the lymphadenopathy appears to have increased in size compared to the earlier examination. This is based on the radiologist's report. Patient is currently on high flow oxygen at 10 L in addition to a nonrebreather facemask. His current pulse ox 100%. WBC count is at 8 with a hemoglobin 9.2 and a platelet count of 188. Normal coagulation profile. D-dimer is at 1.27. Influenza screen, Covid 19 screen and RSV were all negative. He was started on IV Solu-Medrol. Is on DuoNeb about treatments [id number]. He was also started on IV cefepime and vancomycin is to be added. No major swelling in the lower extremities bilaterally. Review of Systems Constitutional Constitutional: no fever, no night sweats, no significant weight gain, significant weight loss 10 pounds , no exercise intolerance Eyes Eyes: no dry eyes, no vision change, no irritation ENMT Ears: no difficulty hearing, no ear pain Nose: no frequent nosebleeds, no nose problems, no sinus problems Mouth/Throat: no sore throat, no bleeding gums, no snoring, no dry mouth, no mouth ulcers, no oral abnormalities, no teeth problems Cardiovascular Cardiovascular: no chest pain, no arm pain on exertion, shortness of breath when walking, no shortness of breath when lying down, no palpitations, no known heart murmur Respiratory Respiratory: shortness of breath Gastrointestinal Gastrointestinal: no abdominal pain, no nausea, no vomiting, no constipation, normal appetite, no diarrhea, not vomiting blood, no dyspepsia, no GERD Genitourinary Genitourinary: no incontinence, no difficulty urinating, no hematuria, no increased frequency Musculoskeletal Musculoskeletal: no muscle aches, no muscle weakness, no arthralgias/joint pain, no back pain, no swelling in the extremities Integumentary Skin: no abnormal mole, no jaundice, no rashes, no laceration Neurologic Neurologic: no loss of consciousness, no weakness, no numbness, no seizures, no dizziness, no migraines, no headaches, no tremor Psychiatric Psych: no depression, no sleep disturbances, feeling safe in a relationship, no alcohol abuse, no anxiety, no hallucinations, no suicidal thoughts Endocrine Endocrine: fatigue Hematologic/Lymphatic Hematologic/Lymphatic no swollen glands, no bruising, no excessive bleeding Allergic/Immunologic Allergy/Immunologic: no runny nose, no sinus pressure, no itching, no hives, no frequent sneezing Past Medical History Past Medical History: Coronary Artery Disease (CAD), Cancer, COPD, CVA/TIA, GERD/Reflux, Hyperlipidemia, Hypertension, Myocardial Infarction ([place]), Pulmonary Embolus ([place]), Renal Disease Additional Past Medical History / Comment(s): Pt recently admitted to [facility] on 06/09/22 with SOB, bicytopenia/anemia with transfusions/L sided weakness which resolved with negative cat scan but MRI showed evolving R frontal lobe infarction. Other hx: R sided lung cancer with surgery/chemo and radiation, large R pleural effusion with thoracentesis/pleurx, home oxygen at 5L/NC, NSTEMI 2014, nephrolithiasis/passed stones on his own, R inguinal hernia. Last Myocardial Infarction Date:: 07/02/14 History of Any Multi-Drug Resistant Organisms: None Reported Past Surgical History: Appendectomy, Heart Catheterization With Stent, Tonsillectomy Additional Past Surgical History / Comment(s): Transbronchoscopy, 02/04/22 R thoracotomy with R lower lobectomy/wedge resection, R thoracentesis/pleurx, 2014 benign throat bx, PCI with stent 2014 Past Anesthesia/Blood Transfusion Reactions: No Reported Reaction Additional Past Anesthesia/Blood Transfusion Reaction / Comment(s): Pt has received bloos without reaction. Date of Last Stent Placement:: 07-02-14 Smoking Status: Former smoker - Past Family History Father Family Medical History: Myocardial Infarction ([place]) Additional Family Medical History / Comment(s): from massive mi age 42 Mother Family Medical History: Cancer Additional Family Medical History / Comment(s): Mother of cancer/pt cannot recall type Medications and Allergies Home Medications Medication Instructions Recorded Confirmed Type Atorvastatin [Lipitor] 80 mg PO HS #90 tab 07/03/14 06/26/22 Rx Nitroglycerin Sl Tabs [Nitrostat] 0.4 mg SUBLINGUAL Q5M PRN #25 tab 07/03/14 0 06/26/22 Rx Fluticasone/Umeclidin/Vilanter 1 puff INHALATION RT-HS 02/02/22 06/26/22 History [Trelegy Ellipta 100-62.5-25] Protandim Life Advantage 2 cap PO DAILY 02/21/22 06/26/22 History Omeprazole [PriLOSEC] 20 mg PO AC-BRKFST 04/21/22 06/26/22 History Simethicone [Gas-X] 125 mg PO ACHS PRN 04/21/22 06/26/22 History Albuterol Inhaler [Ventolin Hfa 1 - 2 puff INHALATION RT-Q6H PRN 06/08/22 06/26/22 History Inhaler] Albuterol Nebulized [Ventolin 2.5 mg INHALATION RT-QID PRN 06/08/22 06/26/22 History Nebulized] Apixaban [Eliquis] 5 mg PO BID 06/08/22 06/26/22 History Lidocaine Viscous 2% [Xylocaine 15 ml PO AC-TID PRN 06/08/22 06/26/22 History Viscous] Multivitamins, Thera [Multivitamin 1 tab PO DAILY 06/08/22 06/26/22 History (formulary)] Acetaminophen Tab [Tylenol] 650 mg PO Q6HR PRN tab 06/17/22 06/26/22 Rx Ipratropium-Albuterol Nebulize 3 ml INHALATION RT-Q2H PRN each 06/17/22 06/26/22 Rx [Duoneb 0.5 mg-3 mg/3 ml Soln] Ipratropium-Albuterol Nebulize 3 ml INHALATION RT-QID #100 each 06/17/22 06/26/22 Rx [Duoneb 0.5 mg-3 mg/3 ml Soln] Metoprolol Tartrate [Lopressor] 12.5 mg PO BID 30 Days #60 tab 06/17/22 06/26/22 Rx LORazepam [Ativan] 0.5 mg PO DAILY PRN 06/26/22 06/26/22 History Allergies Allergy/AdvReac Type Severity Reaction Status Date / Time No Known Allergies Allergy Verified 06/26/22 16:43 Physical Exam Vitals: Vital Signs Temp Pulse Resp BP Pulse Ox 06/27/22 15:16 112 H 18 109/74 100 06/27/22 11:42 103 H 20 107/69 97 06/27/22 11:24 104 H 06/27/22 11:09 102 H 06/27/22 10:07 98 18 102/66 98 06/27/22 09:01 113 H 22 109/70 94 L 06/27/22 07:44 108 H 06/27/22 07:33 100 95 06/27/22 06:14 96 96/66 97 06/27/22 03:33 94 97/65 100 06/27/22 02:40 82 16 100 06/26/22 23:00 108 H 18 99/40 94 L 06/26/22 20:09 120 H 20 94/60 94 L 06/26/22 18:14 98.1 F 108 H 18 100/84 98 06/26/22 17:00 111 H 20 102/72 94 L Intake and Output 06/27/22 06/27/22 06/27/22 06:59 14:59 22:59 Other: Weight 73.936 kg General Appearance no diaphoresis, no respiratory distress, speech not interrupted by breaths, no dyspnea, no pallor, not cachectic, well nourished, appears well, the patient is currently on 15 L also supplemented himself with 100% nonrebreather facemask. Breathing is labored. He looks slightly pale. HEENT no pursed lip breathing, no jugular venous distention, no mucous membrane cyanosis, no perioral cyanosis, mallampati classification: class 1 Chest no barrel chest, no retractions, no sternocleidomastoid muscle contractions, no supraclavicular retractions, no intercostal retractions, no prolonged expiratory wheezing, no decreased air movement, no rhonchi, no hyperinflation, (normal) adventitious sounds: rales / crackles: bilaterally: midlung gleason, decreased air movement Heart no right ventricular heave, no distant heart sounds, no s3 gallop, (no rmal) jugular vein: jugular venous distention: by 0cm, (normal) jugular vein GI bowel sounds: Abdominal exam revealed normal bowel sounds. The abdomen was soft, non-tender, and without masses, organomegaly, or appreciable enlargement of the abdominal aorta. Extremities no cyanosis, no clubbing, no edema Neurologic no decreased mental status, no somnolence, no confusion Assisstive Devices: ambulates with no assitive devices Gait and Mobility: gait WNL, full weight bearing Examination of the skin revealed no evidence of significant rashes, suspicious appearing nevi or other concerning lesions. Results - Laboratory Findings CBC and BMP: 06/26/22 14:02 06/26/22 13:25 PT/INR, D-dimer PT 11.6 sec (9.0-12.0) 06/26/22 15:58 INR 1.1 (<1.2) 06/26/22 15:58 D-Dimer 1.27 mg/L FEU (<0.60) H 06/26/22 15:58 Abnormal lab findings: Abnormal Labs 06/26/22 06/26/22 06/26/22 13:25 13:25 14:02 RBC 3.10 L Hgb 9.2 L Hct 27.4 L RDW 25.8 H D-Dimer Sodium 131 L Creatinine 0.60 L POC Glucose (mg/dL) Plasma Lactic Acid Darek 2.3 H* Calcium 7.9 L Total Protein 6.0 L Albumin 3.2 L 06/26/22 06/27/22 15:58 12:40 RBC Hgb Hct RDW D-Dimer 1.27 H Sodium Creatinine POC Glucose (mg/dL) 155 H Plasma Lactic Acid Darek Calcium Total Protein Albumin - Diagnostic Findings Chest x-ray: image reviewed CT scan - chest: image reviewed Assessment and Plan Plan: Acute right lung pneumonia. Noted the patient is post right lobectomy involving the right lower lobe. There is a new area of consolidation in the right lung base which was absent on previous evaluation. Rule out a hospital-acquired pneumonia. At same time, the patient is a chronic right-sided pleural effusion, unchanged compared to the previous CAT scan. Acute hypoxic respiratory failure secondary to above. No evidence of any pulmonary embolism. Rule out an early ARDS Acute on chronic shortness of breath secondary to above Advanced COPD with extensive bullous changes in the upper lobes maintain on Trelegy Ellipta on outpatient basis Chronic hypoxic respiratory failure maintained on oxygen at 2 L/m nasal cannula Squamous cell carcinoma of the lung, T3 N0 M0 and the patient has undergone previous right lower lobe resection Small cell lung cancer with positive subcarinal lymph nodes and the patient is completing chemotherapy and radiation therapy History of pulmonary embolism. The patient bilateral multilobar pulmonary embolism and he was receiving and the coagulation with Eliquis on outpatient basis. This pulmonary embolism occurred following his thoracotomy and right lower lobe resection and the patient was being treated with anticoagulants. Acute leukopenia, chemotherapy-induced and the patient received Neulasta on an outpatient basis recovered and the white cell count has improved Acute thrombocytopenia, chemotherapy-induced, improved Acute anemia, chemotherapy-induced. Hemoglobin is 9.2 Generalized weakness secondary to above Difficulty swallowing likely secondary to radiation to the chest, rule out a component of radiation esophagitis History of chylothorax and the patient has undergone previous Pleurx catheter insertion. Currently the catheter is out and the patient has some loculated stable right-sided pleural effusion History of coronary artery disease with previous stenting of the LAD, currently stable Plan The patient will be transferred to the intensive care unit The patient was placed on Airvo 60 L an appetite of 90% The patient becomes with a combination of vancomycin and cefepime Continue bronchodilators Continue steroids Lasix 40 mg IV 1 Continue to coagulation with Eliquis Resume all medications IV to 50 mL an hour normal saline CAT scan of the chest was reviewed We'll continue to follow Condition is critical and prognosis poor based above-mentioned comorbidities.
[2022-06-27 17:07] LABS: African American GFR (CKD) >90 (>60 ml/min/1.73 sqM); Anion Gap 5 mmol/L; Blood Urea Nitrogen 12 mg/dL (9-20); Calcium 8.1 mg/dL (8.4-10.2); Carbon Dioxide 25 mmol/L (22-30); Chloride 106 mmol/L (98-107); Glucose 163 mg/dL (74-99); Non-African American GFR(CKD) >90 (>60 ml/min/1.73 sqM); Sodium 136 mmol/L (137-145)
[2022-06-27] MEDS: SODIUM CHLORIDE 0.9% 1,000 ML IV SCH (18:30)
[2022-06-27] MEDS: VANCOMYCIN 1,250 MG in SODIUM CHLORIDE 0.9% 250 ML IVPB SCH (18:30)
[2022-06-27 19:39] LABS: Glucose,Whole Blood 185 mg/dL (70-110)
--- NOTE | 2022-06-27 19:46 | P.CONS ---
History of Present Illness - Reason for Consult Consult date: 06/27/22 lung cancer Requesting physician: Jigar Barron - Chief Complaint SOB - History of Present Illness Mr. Hernandez is a 62-year-old male patient with severe emphysema, chronic smoker with more than [id number] smoking history, and recent diagnosis of SCLC and squamous cell lung cancer. Patient was admitted earlier this month for worsening shortness of breath and was discharged home on oxygen. He now presents to the ER for progressing SOB. He c/o productive cough with brown sputum. Denies fevers, CP, dizziness, n/v/d, no other reported complaints when seen. CTA showed new areas of infiltration of the right lower lobe compared to the previous CT, tumor encasement of the right pulmonary artery on the posterior wall, tumor encasement of the right lower lobe pulmonary vein and bilateral enlarged lymph nodes at the level of the abdirizak, which appear to have increased in size compared to previous imaging. No evidence of PE. Influenza screen, Covid 19 screen and RSV were all negative. Blood cultures pending. He was started on IV Solu-Medrol, DuoNeb treatments, and IV abx. Oncology history: Pt has low-dose CT scan of the lung on 07/30/21 because 44 year pk Hx smoking. This showed numerous borderline/mildly enlarged lymph nodes including 1 cm upper paratracheal 1.4 cm prevascular, 1.2 cm AP window and 2.4 x 1.7 cm lower right paratracheal, 1.7 cm subcarinal. There was a 2.4 cm nodule in the periphery of the right base and a smaller 1 cm nodule in the anterior right lower lobe. PET 08/27/21 showed metabolic uptake in the 2.4 cm lung nodule, no uptake in the smaller right basilar nodule, and no uptake in the mediastinal nodes. Referred to Pulmonary, had navigational bronchoscopy and mediastinal node sampling 01/11/22. Aspiration from station 7 lymph node showed suspicious cytologic features, small cell carcinoma not entirely excluded. The addendum states that the findings were suspicious for involvement with small cell carcinoma but assessment was limited, specimens from other sites were nondiagnostic. He had lobectomy and mediastinal node sampling on 02/04/22. Further dissection had shown mixed small cell and squamous cell carcinoma. The specimen showed 1 cm small cell carcinoma, with a 4 mm focus of squamous cell carcinoma. 2 out of 4 lymph nodes were positive for small cell carcinoma with extranodal extension. He was readmitted 02/21/22, found to have multiple pulmonary emboli in the right upper and right lower lobe. Was also noted to have a large located right pleural effusion. Placed in anticoagulation, drainage of the pleural fluid with Pleurx catheter placed. Pleural fluid analysis showed exudate, cytology was neg. MRI of the brain, no evidence of parenchymal disease. There was signal alteration involving the frontal bone. CT of the brain showed indeterminate 1.5 cm lytic-appearing lesion with differential diagnoses including both malignant and nonmalignant etiologies. He has had 3 pleural fluid cytologies-all negative. Repeat PET showed progressive disease in the mediastinum with 3-4 lymph nodes enlarged and active. There is no evidence of distant disease. Started concurrent chemo/radiation with ACID EXTRACTOR-16 and carboplatin, and has received 3 cycles, last cycle on 06/01/22-delay due to low counts, GCSF added. He has completed XRT. Review of Systems 10 point ROS negative except as stated in HPI Past Medical History Past Medical History: Coronary Artery Disease (CAD), Cancer, GERD/Reflux, Hyperlipidemia, Hypertension, Myocardial Infarction ([place]) Additional Past Medical History / Comment(s): PET SCAN ON 08/27/21 SHOWS RIGHT BASILAR LUNG NODULE. ( NSTEMI 07-02-14), KIDNEY STONES. RT INGUINAL HERNIA, emphysema Last Myocardial Infarction Date:: DATE UNKNOWN History of Any Multi-Drug Resistant Organisms: None Reported Past Surgical History: Appendectomy, Heart Catheterization With Stent, Tonsillectomy Additional Past Surgical History / Comment(s): 1989 HAD POLYP REMOVED FROM THROAT-BENIGN, 07-02-14 STENT TO LAS, recent aide. bronchoscopy; right lower lobectomy through thoracotomy approach 02/04/2022 Past Anesthesia/Blood Transfusion Reactions: No Reported Reaction Date of Last Stent Placement:: 07-02-14 Past Psychological History: No Psychological Hx Reported Smoking Status: Former smoker Past Alcohol Use History: None Reported Past Drug Use History: Marijuana - Past Family History Father Family Medical History: Myocardial Infarction ([place]) Additional Family Medical History / Comment(s): from massive mi age 42 Mother Family Medical History: Unable to Obtain Medications and Allergies Home Medications Medication Instructions Recorded Confirmed Type Atorvastatin [Lipitor] 80 mg PO HS #90 tab 07/03/14 06/26/22 Rx Nitroglycerin Sl Tabs [Nitrostat] 0.4 mg SUBLINGUAL Q5M PRN #25 tab 07/03/14 06/26/22 Rx Fluticasone/Umeclidin/Vilanter 1 puff INHALATION RT-HS 02/02/22 06/26/22 History [Trelegy Ellipta 100-62.5-25] Protandim Life Advantage 2 cap PO DAILY 02/21/22 06/26/22 History Omeprazole [PriLOSEC] 20 mg PO AC-BRKFST 04/21/22 06/26/22 History Simethicone [Gas-X] 125 mg PO ACHS PRN 04/21/22 06/26/22 History Albuterol Inhaler [Ventolin Hfa 1 - 2 puff INHALATION RT-Q6H PRN 06/08/22 06/26/22 History Inhaler] Albuterol Nebulized [Ventolin 2.5 mg INHALATION RT-QID PRN 06/08/22 06/26/22 History Nebulized] Apixaban [Eliquis] 5 mg PO BID 06/08/22 06/26/22 History Lidocaine Viscous 2% [Xylocaine 15 ml PO AC-TID PRN 06/08/22 06/26/22 History Viscous] Multivitamins, Thera [Multivitamin 1 tab PO DAILY 06/08/22 06/26/22 History (formulary)] Acetaminophen Tab [Tylenol] 650 mg PO Q6HR PRN tab 06/17/22 06/26/22 Rx Ipratropium-Albuterol Nebulize 3 ml INHALATION RT-Q2H PRN each 06/17/22 06/26/22 Rx [Duoneb 0.5 mg-3 mg/3 ml Soln] Ipratropium-Albuterol Nebulize 3 ml INHALATION RT-QID #100 each 06/17/22 06/26/22 Rx [Duoneb 0.5 mg-3 mg/3 ml Soln] Metoprolol Tartrate [Lopressor] 12.5 mg PO BID 30 Days #60 tab 06/17/22 06/26/22 Rx LORazepam [Ativan] 0.5 mg PO DAILY PRN 06/26/22 06/26/22 History Allergies Allergy/AdvReac Type Severity Reaction Status Date / Time No Known Allergies Allergy Verified 06/26/22 16:43 Physical Exam Vitals: Vital Signs Temp Pulse Resp BP Pulse Ox 06/27/22 07:44 108 H 06/27/22 07:33 100 95 06/27/22 06:14 96 96/66 97 06/27/22 03:33 94 97/65 100 06/27/22 02:40 82 16 100 06/26/22 23:00 108 H 18 99/40 94 L 06/26/22 20:09 120 H 20 94/60 94 L 06/26/22 18:14 98.1 F 108 H 18 100/84 98 06/26/22 17:00 111 H 20 102/72 94 L 06/26/22 15:05 96 20 133/97 96 06/26/22 14:07 111 H 18 102/73 100 06/26/22 13:03 120 H 24 101/67 94 L 06/26/22 12:53 120 H 22 06/26/22 12:33 98.3 F 127 H 24 90/62 75 L - Constitutional General appearance: average body habitus, cooperative, mild distress - EENT Eyes: anicteric sclerae, EOMI ENT: hearing grossly normal - Neck Neck: no lymphadenopathy - Respiratory breathing labored Respiratory: bilateral: diminished - Cardiovascular tachycardia Rhythm: regular Heart sounds: normal: S1, S2 Abnormal Heart Sounds: no systolic murmur, no diastolic murmur, no rub, no S3 Ga llop, no S4 Gallop, no click, no other leg Peripheral Edema: bilateral: None - Gastrointestinal General gastrointestinal: no absent bowel sounds, no decreased bowel sounds, no distended, no hepatomegaly, no hyperactive bowel sounds, normal bowel sounds, no organomegaly, no rigid, no scaphoid, soft, no splenomegaly, no tenderness, no umbilical hernia, no ventral hernia - Integumentary Integumentary: normal - Neurologic Neurologic: CNII-XII intact - Musculoskeletal Musculoskeletal: generalized weakness - Psychiatric Psychiatric: A&O x's 3, appropriate affect, intact judgment & insight Results CBC & Chem 7: 06/26/22 14:02 06/27/22 16:32 Labs: Abnormal Lab Results - Last 24 Hours (Table) 06/26/22 06/26/22 06/26/22 Range/Units 13:25 13:25 14:02 RBC 3.10 L (4.30-5.90) m/uL Hgb 9.2 L (13.0-17.5) gm/dL Hct 27.4 L (39.0-53.0) % RDW 25.8 H (11.5-15.5) % D-Dimer (<0.60) mg/L FEU Sodium 131 L (137-145) mmol/L Creatinine 0.60 L (0.66-1.25) mg/dL Plasma Lactic Acid Darek 2.3 H* (0.7-2.0) mmol/L Calcium 7.9 L (8.4-10.2) mg/dL Total Protein 6.0 L (6.3-8.2) g/dL Albumin 3.2 L (3.5-5.0) g/dL 06/26/22 Range/Units 15:58 RBC (4.30-5.90) m/uL Hgb (13.0-17.5) gm/dL Hct (39.0-53.0) % RDW (11.5-15.5) % D-Dimer 1.27 H (<0.60) mg/L FEU Sodium (137-145) mmol/L Creatinine (0.66-1.25) mg/dL Plasma Lactic Acid Darek (0.7-2.0) mmol/L Calcium (8.4-10.2) mg/dL Total Protein (6.3-8.2) g/dL Albumin (3.5-5.0) g/dL Chest x-ray: report reviewed CT scan - chest: report reviewed Assessment and Plan (1) Dyspnea Current Visit: Yes Status: Acute Priority: High Code(s): R06.00 - DYSPNEA, UNSPECIFIED SNOMED Code(s): 072846023 (2) Small cell lung cancer Current Visit: Yes Status: Acute Priority: High Code(s): C34.90 - MALIGNANT NEOPLASM OF UNSP PART OF UNSP BRONCHUS OR LUNG SNOMED Code(s): 627830955 Plan: Small cell lung cancer: -Completed 3rd cycle of Carbo-ACID EXTRACTOR on 05/30-06/01 with addition of GCSF, given 06/02. XRT treatment is complete. Treatment currently delayed to low counts and hospital admissions. -Plan was to hold treatment and reassess in 2 weeks. If pt doing better then may consider completing last cycle of chemo, possibly dose reduction. Mild anemia, chemo induced -Hgb 9.2, no aucte intervention, will continue to monitor counts Shortness of breath at rest -Patient reporting his respiratory status is not at its baseline, definitely worse. Associated with a productive cough. CTA showed new areas of infiltration of the right lower lobe compared to the previous CT, tumor encasement of the right pulmonary artery on the posterior wall, tumor encasement of the right lower lobe pulmonary vein and bilateral enlarged lymph nodes at the level of the abdirizak, which appear to have increased in size compared to previous imaging. No evidence of PE. Suspect increase in size of tumors is a combination of infection and possibly inflammation from recent completion of radiation. Pt is on steroids. Will see how he progresses through this hospitalization -Patient being followed and teated by Pulmonology/ Critical care -Blood cultures and sputum culture pending Dr randallests: I have seen and examined pt, performed H&P, developed impression and plan of care. Discussed with dictator. Agree with documentation, dictated as a scribe.
[2022-06-27 20:43] LABS: Glucose,Whole Blood 205 mg/dL (70-110)
[2022-06-27] MEDS: ATORVASTATIN 80 MG TAB PO SCH (21:09)
--- NOTE | 2022-06-27 21:33 | P.CONS ---
History of Present Illness - Reason for Consult Consult date: 06/27/22 Pneumonia Requesting physician: Kale Patiño - Chief Complaint Increasing shortness of breath x days - History of Present Illness Patient is a 62-year-old male with a past medical history significant for emphysema chronic smoker and also small cell lung cancer as well as squamous cell cancer of the lung status post right lower lobectomy postop course complicated by chylothorax for the Pleurx catheter has been placed also with a history of PE patient was recently admitted to the hospital and did receive antibiotic therapy for possible pneumonia and subsequently discharged home patient now presenting back to the hospital for evaluation of increasing shortness of breath with the patient mentions seem to have been getting worse since he left the hospital patient denies having any chest pain he did have a cough mild to moderate intensity did not bring up any sputum patient denies having any nausea no vomiting no choking on the food no abdominal pain or any diarrhea main symptom remains to be worsening shortness of breath on minimal exertion with the same to the patient was evaluated by the ER physician on arrival to the ER the patient was afebrile and no fever has been recorded subsequently, patient noticed to be tachycardic and hypoxic requiring high flow oxygen did have a normal white count creatinine was normal liver enzymes are normal influenza RSV and COVID testing was negative patient did have a chest x- ray multifocal airspace opacity concerning for pneumonia versus congestive heart failure he also have a CT angiogram of the chest extensive infiltrate right lower lobe with loculated pleural fluid slightly increased compared to old exam and apparent tumor in the placement of the right pulmonary artery patient was started on cefepime and vancomycin infectious disease was consulted for further management of antibiotic therapy Review of Systems Positive point has been mentioned in the HPI rest of the systems are negative Past Medical History Past Medical History: Coronary Artery Disease (CAD), Cancer, COPD, CVA/TIA, GERD/Reflux, Hyperlipidemia, Hypertension, Myocardial Infarction (MO), Pulmonary Embolus (PE), Renal Disease Additional Past Medical History / Comment(s): Pt recently admitted to [facility] on 06/09/22 with SOB, bicytopenia/anemia with transfusions/L sided weakness which resolved with negative cat scan but MRI showed evolving R frontal lobe infarction. Other hx: R sided lung cancer with surgery/chemo and radiation, large R pleural effusion with thoracentesis/pleurx, home oxygen at 5L/NC, NSTEMI 2014, nephrolithiasis/passed stones on his own, R inguinal hernia. Last Myocardial Infarction Date:: 07/02/14 History of Any Multi-Drug Resistant Organisms: None Reported Past Surgical History: Appendectomy, Heart Catheterization With Stent, Tonsillec isaias Additional Past Surgical History / Comment(s): Transbronchoscopy, 02/04/22 R thoracotomy with R lower lobectomy/wedge resection, R thoracentesis/pleurx, 2014 benign throat bx, PCI with stent 2014 Past Anesthesia/Blood Transfusion Reactions: No Reported Reaction Additional Past Anesthesia/Blood Transfusion Reaction / Comm: Pt has received bloos without reaction. Date of Last Stent Placement:: 07-02-14 Smoking Status: Former smoker - Past Family History Father Family Medical History: Myocardial Infarction (MO) Additional Family Medical History / Comment(s): from massive mi age 42 Mother Family Medical History: Cancer Additional Family Medical History / Comment(s): Mother of cancer/pt cannot recall type Medications and Allergies Home Medications Medication Instructions Recorded Confirmed Type Atorvastatin [Lipitor] 80 mg PO HS #90 tab 07/03/14 06/26/22 Rx Nitroglycerin Sl Tabs [Nitrostat] 0.4 mg SUBLINGUAL Q5M PRN #25 tab 07/03/14 06/26/22 Rx Fluticasone/Umeclidin/Vilanter 1 puff INHALATION RT-HS 02/02/22 06/26/22 History [Trelegy Ellipta 100-62.5-25] Protandim Life Advantage 2 cap PO DAILY 02/21/22 06/26/22 History Omeprazole [PriLOSEC] 20 mg PO AC-BRKFST 04/21/22 06/26/22 History Simethicone [Gas-X] 125 mg PO ACHS PRN 04/21/22 06/26/22 History Albuterol Inhaler [Ventolin Hfa 1 - 2 puff INHALATION RT-Q6H PRN 06/08/22 06/26/22 History Inhaler] Albuterol Nebulized [Ventolin 2.5 mg INHALATION RT-QID PRN 06/08/22 06/26/22 History Nebulized] Apixaban [Eliquis] 5 mg PO BID 06/08/22 06/26/22 History Lidocaine Viscous 2% [Xylocaine 15 ml PO AC-TID PRN 06/08/22 06/26/22 History Viscous] Multivitamins, Thera [Multivitamin 1 tab PO DAILY 06/08/22 06/26/22 History (formulary)] Acetaminophen Tab [Tylenol] 650 mg PO Q6HR PRN tab 06/17/22 06/26/22 Rx Ipratropium-Albuterol Nebulize 3 ml INHALATION RT-Q2H PRN each 06/17/22 06/26/22 Rx [Duoneb 0.5 mg-3 mg/3 ml Soln] Ipratropium-Albuterol Nebulize 3 ml INHALATION RT-QID #100 each 06/17/22 06/26/22 Rx [Duoneb 0.5 mg-3 mg/3 ml Soln] Metoprolol Tartrate [Lopressor] 12.5 mg PO BID 30 Days #60 tab 06/17/22 06/26/22 Rx LORazepam [Ativan] 0.5 mg PO DAILY PRN 06/26/22 06/26/22 History Allergies Allergy/AdvReac Type Severity Reaction Status Date / Time No Known Allergies Allergy Verified 06/26/22 16:43 Physical Exam Vitals: Vital Signs Temp Pulse Resp BP Pulse Ox 06/27/22 11:42 103 H 20 107/69 97 06/27/22 11:24 104 H 06/27/22 11:09 102 H 06/27/22 10:07 98 18 102/66 98 06/27/22 09:01 113 H 22 109/70 94 L 06/27/22 07:44 108 H 06/27/22 07:33 100 95 06/27/22 06:14 96 96/66 97 06/27/22 03:33 94 97/65 100 06/27/22 02:40 82 16 100 06/26/22 23:00 108 H 18 99/40 94 L 06/26/22 20:09 120 H 20 94/60 94 L 06/26/22 18:14 98.1 F 108 H 18 100/84 98 06/26/22 17:00 111 H 20 102/72 94 L 06/26/22 15:05 96 20 133/97 96 06/26/22 14:07 111 H 18 102/73 100 06/26/22 13:03 120 H 24 101/67 94 L 06/26/22 12:53 120 H 22 06/26/22 12:33 98.3 F 127 H 24 90/62 75 L Intake and Output 06/26/22 06/27/22 06/27/22 22:59 06:59 14:59 Other: Weight 73.936 kg GENERAL DESCRIPTION: Middle-aged male lying in bed, no distress. No tachypnea or accessory muscle of respiration use. HEENT: Shows Pallor , no scleral icterus. Oral mucous membrane is dry. No pharyngeal erythema or thrush NECK: Trachea central, no thyromegaly. LUNGS: Unlabored breathing. Coarse breath sounds bilaterally. No wheeze or crackle. HEART: S1, S2, regular rate and rhythm. No loud murmur ABDOMEN: Soft, no tenderness , guarding or rigidity, no organomegaly EXTREMITIES: No edema of feet. SKIN: No rash, no masses palpable. NEUROLOGICAL: The patient is awake, alert, oriented x3, mood and affect normal. Results CBC & Chem 7: 07/10/22 03:56 07/10/22 03:56 Labs: Abnormal Lab Results - Last 24 Hours (Table) 06/26/22 06/26/22 06/26/22 Range/Units 13:25 13:25 14:02 RBC 3.10 L (4.30-5.90) m/uL Hgb 9.2 L (13.0-17.5) gm/dL Hct 27.4 L (39.0-53.0) % RDW 25.8 H (11.5-15.5) % D-Dimer (<0.60) mg/L FEU Sodium 131 L (137-145) mmol/L Creatinine 0.60 L (0.66-1.25) mg/dL Plasma Lactic Acid Darek 2.3 H* (0.7-2.0) mmol/L Calcium 7.9 L (8.4-10.2) mg/dL Total Protein 6.0 L (6.3-8.2) g/dL Albumin 3.2 L (3.5-5.0) g/dL 06/26/22 Range/Units 15:58 RBC (4.30-5.90) m/uL Hgb (13.0-17.5) gm/dL Hct (39.0-53.0) % RDW (11.5-15.5) % D-Dimer 1.27 H (<0.60) mg/L FEU Sodium (137-145) mmol/L Creatinine (0.66-1.25) mg/dL Plasma Lactic Acid Darek (0.7-2.0) mmol/L Calcium (8.4-10.2) mg/dL Total Protein (6.3-8.2) g/dL Albumin (3.5-5.0) g/dL Assessment and Plan (1) Pneumonia Status: Acute Code(s): J18.9 - PNEUMONIA, UNSPECIFIED ORGANISM SNOMED Code(s): 759860112 Plan: 1patient presented to hospital with increasing shortness of breath which is likely multifactorial in this patient who do have a history of emphysema also with a history of lung cancer now with evidence of right-sided loculated fluid concerning for possible empyema and has been in and out of the hospital we will need to cover for resistant gram-positive as well as gram-negative. 2we will try to obtain sputum for Gram stain and culture and check his inflammatory markers 3patient will benefit from drainage of the fluid which should be sent for culture 4patient to continue the vancomycin and cefepime while watching his kidney function closely We will follow on clinical condition and cultures to further adjust medication if needed Thank you for this consultation we will follow the patient along with you Time with Patient: Greater than 30
[2022-06-28] MEDS: methylPREDNISolone SOD SUCCI 125 MG/2 ML VIAL IV SCH ×5 (00:38→23:56)
[2022-06-28] MEDS: VANCOMYCIN 1,250 MG in SODIUM CHLORIDE 0.9% 250 ML IVPB SCH ×2 (00:59→08:47)
[2022-06-28] MEDS: CEFEPIME 2 GM in SODIUM CHLORIDE 0.9% 100 ML IVPB SCH ×3 (04:35→20:55)
[2022-06-28 06:43] LABS: Glucose,Whole Blood 151 mg/dL (70-110)
[2022-06-28] MEDS: INSULIN ASPART (NovoLOG) 100 UNIT/ML VIAL SQ SCH ×4 (06:48→21:10)
[2022-06-28] MEDS: PANTOPRAZOLE 40 MG TABLET PO SCH (06:48)
[2022-06-28 07:04] LABS: Anisocytosis Marked; Basophils % (A) 0 %; Eosinophils % (A) 0 %; HCT 25.8 % (39.0-53.0); HGB 8.1 gm/dL (13.0-17.5); Hypochromasia Moderate; Lymphocytes # (A) 0.3 k/uL (1.0-4.8); Lymphocytes % (A) 2 %; MCH 28.8 pg (25.0-35.0); MCHC 31.3 g/dL (31.0-37.0); MCV 92.1 fL (80.0-100.0); Macrocytosis Moderate; Mean Platelet Volume 8.8; Monocytes # (A) 0.5 k/uL (0-1.0); Monocytes % (A) 4 %; Neutrophils # (A) 12.8 k/uL (1.3-7.7); Neutrophils % (A) 93 %; Platelet Count 189 k/uL (150-450); Poikilocytosis Moderate; WBC 13.7 k/uL (3.8-10.6)
[2022-06-28 07:05] LABS: RDW 26.1 % (11.5-15.5)
[2022-06-28 07:11] LABS: ALT 81 U/L (4-49); AST 61 U/L (17-59); African American GFR (CKD) >90 (>60 ml/min/1.73 sqM); Albumin 2.7 g/dL (3.5-5.0); Alkaline Phosphatase 92 U/L (38-126); Anion Gap 4 mmol/L; Blood Urea Nitrogen 17 mg/dL (9-20); Calcium 7.8 mg/dL (8.4-10.2); Carbon Dioxide 24 mmol/L (22-30); Chloride 107 mmol/L (98-107); Glucose 139 mg/dL (74-99); Non-African American GFR(CKD) >90 (>60 ml/min/1.73 sqM); Potassium 3.9 mmol/L (3.5-5.1); Sodium 135 mmol/L (137-145); Total Bilirubin 0.5 mg/dL (0.2-1.3); Total Protein 5.2 g/dL (6.3-8.2)
[2022-06-28] MEDS: IPRATROPIUM-ALBUTEROL 3 ML NEB INHALATION SCH ×4 (07:48→19:17)
[2022-06-28] MEDS: BUDESONIDE 1 MG/2 ML NEBU INHALATION SCH ×2 (07:48→19:17)
[2022-06-28] MEDS: FORMOTEROL FUMARATE 20 MCG/2 ML NEBU INHALATION SCH ×2 (07:48→19:17)
[2022-06-28] MEDS ORDERED: FUROSEMIDE 10 MG/ML 4 ML VIAL IV STA (08:26)
--- NOTE | 2022-06-28 08:26 | P.PN ---
Subjective Progress Note Date: 06/28/22 A 62-year-old male patient with severe bullous emphysema, a chronic smoker is more than [id number] smoking history. 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 Postop course was complicated by development of chylothorax for which a Pleurx catheter was inserted and ultimately this was removed. His postop course was also complicated by development of pulmonary embolism and the patient was treated with anticoagulants and the patient continues to be on anti-coagulation with Eliquis. PET/CT that was done on 03/18/2022 showed progression of his disease with increase in the size and the metabolic activity of the mediastinal mass/lymphadenopathy. Based on that, the patient was started on treatment and the patient was given systemic chemotherapy with a combination of carboplatinum and PAIRER SUBSTANDARD-16. He also completed radiation therapy. Since then, the patient's health has been in generally getting worse. He was hospitalized back in early June with worsening shortness of breath. At that time, he was having issues related to chemotherapy toxicity with pancytopenia. He was quite leukopenic and he was also anemic. His platelet count also dropped. During his hospital stay, the patient gradually improved and he was ultimately discharged home on oxygen. During his hospital stay, he also had a transient ischemic attack with some left-sided weakness. And neuro workup was done including a CT angiogram of the brain that showed no acute abnormalities. The patient ultimately recovered and he was started on aspirate 1 mg by mouth daily. Anti-coagulation was resumed. During this current hospitalization admission, the patient noticed that he was getting more hypoxic. Even with limited amount of activity, his pulse ox was dropping and his oxygen requirements gradually we will going up and he was using 5 L oxygen by nasal cannula. He decided to come into the hospital because of worsening shortness of breath. In the emergency, the patient was found to be quite short of breath. He had minimal amount of sputum production. No fever or chills. No reported chest pain. He was quite dyspneic. No altered mentation. Immediately, a CT angiogram was done and this rules out the possibility of pulmonary embolism. There was new areas of infiltration of the right lower lobe compared to the previous CAT scan and there was also tumor encasement of the right pulmonary artery on the posterior wall. There was also tumor encasement of the right lower lobe pulmonary vein and there was bilateral enlarged lymph nodes at the level of the abdirizak. The mass and the lymphadenopathy appears to have increased in size compared to the earlier examination. This is based on the radiologist's report. Patient is currently on high flow oxygen at 10 L in addition to a nonrebreather facemask. His current pulse ox 100%. WBC count is at 8 with a hemoglobin 9.2 and a platelet count of 188. Normal coagulation profile. D-dimer is at 1.27. Influenza screen, Covid 19 screen and RSV were all negative. He was started on IV Solu-Medrol. Is on DuoNeb about treatments [id number]. He was also started on IV cefepime and vancomycin is to be added. No major swelling in the lower extremities bilaterally. Today's evaluation of 06/28/2022, the patient is currently in the intensive care unit currently on high flow oxygen at 60 L with an FiO2 of 90%. He seems a more comfortable compared to yesterday. Breathing is less labored and his pulse ox is around 96-98%. Chest x-ray still showing bilateral pulmonary infiltrates most on the right lung and there is some infiltration of the left. Based on his immunosuppression frequent hospitalizations, the patient was started on a combination of cefepime and vancomycin. Currently is afebrile. He is hemodynamically stable. Cardiac rhythm is sinus. His echoes at 15.7 with a hemoglobin of 8.1 and a platelet count of 189. Sodium is at 139 with a potassium level of 3.9. BUN is at 70 with a creatinine of 0.5. Pro-calcitonin level is still pending. LFTs are mildly elevated with an AST of 61, ALT of 81, alkaline phosphatase of 92. His albumin level is at 2.7. No major swelling in lower extremities. Remains on anticoagulants with Eliquis. Remains on bronchodilators. Remains on IV Solu-Medrol 60 mg every 6 hours. Objective - Vital Signs Vital signs: Vital Signs Temp 97.6 F 06/28/22 00:00 Pulse 101 H 06/28/22 08:11 Resp 25 H 06/28/22 07:00 BP 119/73 06/28/22 07:00 Pulse Ox 97 06/28/22 07:00 FiO2 90 06/28/22 07:48 Intake & Output 06/27/22 06/28/22 06/28/22 18:59 06:59 18:59 Intake Total 1750 50 Output Total 1600 75 Balance 150 -25 Weight 73.936 kg 93.4 kg Intake: Intake, IV Titration 1000 50 Amount Cefepime 2 gm In Sodium 200 Chloride 0.9% 100 ml @ 25 mls/hr IVPB Q8H BHAVNA Rx#: [id number] Sodium Chloride 0.9% 1, 550 50 000 ml @ 50 mls/hr IV . Q20H BHAVNA Rx#:[id number] Vancomycin 1,250 mg In 250 Sodium Chloride 0.9% 250 ml @ 125 mls/hr IVPB Q8HR BHAVNA Rx#:[id number] Oral 750 Output: Urine 1600 75 Other: Voiding Method Urinal - Exam General Appearance no diaphoresis, no respiratory distress, speech not interrupted by breaths, no dyspnea, no pallor, not cachectic, well nourished, appears well, the patient is currently on high flow oxygen with 60 L an FiO2 of 90% , seems to much more comfortable compared to yesterday in terms of his breathing. Not using accessory muscles of breathing. He had a full breakfast t his morning HEENT no pursed lip breathing, no jugular venous distention, no mucous membrane cyanosis, no perioral cyanosis, mallampati classification: class 1 Chest no barrel chest, no retractions, no sternocleidomastoid muscle contractions, no supraclavicular retractions, no intercostal retractions, no prolonged expiratory wheezing, no decreased air movement, no rhonchi, no hyperinflation, (normal) adventitious sounds: rales / crackles: bilaterally: midlung gleason, decreased air movement Heart no right ventricular heave, no distant heart sounds, no s3 gallop, (normal) jugular vein: jugular venous distention: by 0cm, (normal) jugular vein GI bowel sounds: Abdominal exam revealed normal bowel sounds. The abdomen was soft, non-tender, and without masses, organomegaly, or appreciable enlargement of the abdominal aorta. Extremities no cyanosis, no clubbing, no edema Neurologic no decreased mental status, no somnolence, no confusion Assisstive Devices: ambulates with no assitive devices Gait and Mobility: gait WNL, full weight bearing Examination of the skin revealed no evidence of significant rashes, suspicious appearing nevi or other concerning lesions. - Labs CBC & Chem 7: 06/28/22 05:49 06/28/22 05:49 Labs: Abnormal Lab Results - Last 24 Hours (Table) 06/26/22 06/27/22 06/27/22 Range/Units 13:25 12:40 16:32 WBC (3.8-10.6) k/uL RBC (4.30-5.90) m/uL Hgb (13.0-17.5) gm/dL Hct (39.0-53.0) % RDW (11.5-15.5) % Neutrophils # (1.3-7.7) k/uL Lymphocytes # (1.0-4.8) k/uL Sodium 136 L (137-145) mmol/L Creatinine 0.57 L (0.66-1.25) mg/dL Glucose 163 H (74-99) mg/dL POC Glucose (mg/dL) 155 H (70-110) mg/dL Hemoglobin A1c 6.6 H (0.0-6.0) % Calcium 8.1 L (8.4-10.2) mg/dL AST (17-59) U/L ALT (4-49) U/L C-Reactive Protein (<1.0) mg/dL Total Protein (6.3-8.2) g/dL Albumin (3.5-5.0) g/dL 06/27/22 06/27/22 06/28/22 Range/Units 19:38 20:42 05:49 WBC (3.8-10.6) k/uL RBC (4.30-5.90) m/uL Hgb (13.0-17.5) gm/dL Hct (39.0-53.0) % RDW (11.5-15.5) % Neutrophils # (1.3-7.7) k/uL Lymphocytes # (1.0-4.8) k/uL Sodium 135 L (137-145) mmol/L Creatinine 0.52 L (0.66-1.25) mg/dL Glucose 139 H (74-99) mg/dL POC Glucose (mg/dL) 185 H 205 H (70-110) mg/dL Hemoglobin A1c (0.0-6.0) % Calcium 7.8 L (8.4-10.2) mg/dL AST 61 H (17-59) U/L ALT 81 H (4-49) U/L C-Reactive Protein 7.0 H (<1.0) mg/dL Total Protein 5.2 L (6.3-8.2) g/dL Albumin 2.7 L (3.5-5.0) g/dL 06/28/22 06/28/22 Range/Units 05:49 06:41 WBC 13.7 H (3.8-10.6) k/uL RBC 2.80 L (4.30-5.90) m/uL Hgb 8.1 L (13.0-17.5) gm/dL Hct 25.8 L (39.0-53.0) % RDW 26.1 H (11.5-15.5) % Neutrophils # 12.8 H (1.3-7.7) k/uL Lymphocytes # 0.3 L (1.0-4.8) k/uL Sodium (137-145) mmol/L Creatinine (0.66-1.25) mg/dL Glucose (74-99) mg/dL POC Glucose (mg/dL) 151 H (70-110) mg/dL Hemoglobin A1c (0.0-6.0) % Calcium (8.4-10.2) mg/dL AST (17-59) U/L ALT (4-49) U/L C-Reactive Protein (<1.0) mg/dL Total Protein (6.3-8.2) g/dL Albumin (3.5-5.0) g/dL Microbiology - Last 24 Hours (Table) 06/27/22 16:37 Sputum Culture - Preliminary Sputum 06/26/22 13:25 Blood Culture - Preliminary Blood No Growth after 24 hours 06/26/22 13:25 Blood Culture - Preliminary Blood No Growth after 24 hours Assessment and Plan Plan: Acute right lung pneumonia. Noted the patient is post right lobectomy involving the right lower lobe. There is a new area of consolidation in the right lung base which was absent on previous evaluation. Rule out a hospital-acquired pneumonia. At same time, the patient is a chronic right-sided pleural effusion, unchanged compared to the previous CAT scan. Chest x-ray from today is showing stable bilateral pulmonary infiltrates. Currently on high flow oxygen with 60 L an FiO2 of 90% Acute hypoxic respiratory failure secondary to above. No evidence of any pulmonary embolism. Rule out an early ARDS Acute on chronic shortness of breath secondary to above Advanced COPD with extensive bullous changes in the upper lobes maintain on Trelegy Ellipta on outpatient basis Chronic hypoxic respiratory failure maintained on oxygen at 2 L/m nasal cannula Squamous cell carcinoma of the lung, T3 N0 M0 and the patient has undergone previous right lower lobe resection Small cell lung cancer with positive subcarinal lymph nodes and the patient is completing chemotherapy and radiation therapy History of pulmonary embolism. The patient bilateral multilobar pulmonary embolism and he was receiving and the coagulation with Eliquis on outpatient basis. This pulmonary embolism occurred following his thoracotomy and right lower lobe resection and the patient was being treated with anticoagulants. Acute leukopenia, chemotherapy-induced and the patient received Neulasta on an outpatient basis recovered and the white cell count has improved Acute thrombocytopenia, chemotherapy-induced, improved Acute anemia, chemotherapy-induced. Hemoglobin is 9.2 Generalized weakness secondary to above Difficulty swallowing likely secondary to radiation to the chest, rule out a component of radiation esophagitis History of chylothorax and the patient has undergone previous Pleurx catheter insertion. Currently the catheter is out and the patient has some loculated stable right-sided pleural effusion History of coronary artery disease with previous stenting of the LAD, currently stable Plan The patient was placed on Airvo 60 L an appetite of 90%, keep the same setting for now and gradually wean down FiO2 Continue the combination of vancomycin and cefepime Continue bronchodilators Continue steroids Lasix 40 mg IV 1 Continue to coagulation with Eliquis IV to KVO. CAT scan of the chest was reviewed Blood cultures are negative Check pro calcitonin level We'll continue to follow Condition is critical and prognosis poor based above-mentioned comorbidities.
[2022-06-28] MEDS: METOPROLOL TARTRATE 12.5 MG TAB PO SCH ×2 (08:46→21:09)
[2022-06-28] MEDS: APIXABAN 5 MG TAB PO SCH ×2 (08:46→21:09)
[2022-06-28] MEDS: MULTIVITAMINS, THERA 1 EACH TAB PO SCH (08:47)
--- NOTE | 2022-06-28 09:05 | XR ---
EXAMINATION TYPE: XR chest 1V portable DATE OF EXAM: 06/28/2022 COMPARISON: 06/27/2022 INDICATION: Short of breath TECHNIQUE: Single frontal view of the chest is obtained. FINDINGS: The heart size is normal. The pulmonary vasculature is normal. There is diffuse increased lung markings. Correlate for pulmonary fibrosis. Small right pleural effus ion remains present. IMPRESSION: 1. Stable diffuse increased lung markings in the lung bases. Findings may be superimposed on pulmonar y fibrosis. 2. Small right pleural effusion, stable.
[2022-06-28 12:59] LABS: Glucose,Whole Blood 173 mg/dL (70-110)
[2022-06-28] MEDS: SODIUM CHLORIDE 0.9% 1,000 ML IV SCH (14:45)
[2022-06-28] MEDS ORDERED: VANCOMYCIN TROUGH DUE 1 EACH MISC MISCELLANE ONE (15:00)
[2022-06-28 16:15] LABS: Glucose,Whole Blood 163 mg/dL (70-110)
[2022-06-28] MEDS: VANCOMYCIN 1,500 MG in SODIUM CHLORIDE 0.9% 500 ML 500 ML IVPB SCH (17:39)
[2022-06-28 20:08] LABS: Glucose,Whole Blood 146 mg/dL (70-110)
[2022-06-28] MEDS: ATORVASTATIN 80 MG TAB PO SCH (21:09)
[2022-06-29] MEDS: ACETAMINOPHEN TAB 325 MG TAB PO PRN (00:05)
[2022-06-29] MEDS: VANCOMYCIN 1,500 MG in SODIUM CHLORIDE 0.9% 500 ML 500 ML IVPB SCH ×3 (02:17→18:10)
[2022-06-29] MEDS: CEFEPIME 2 GM in SODIUM CHLORIDE 0.9% 100 ML IVPB SCH (03:36)
[2022-06-29] MEDS: methylPREDNISolone SOD SUCCI 125 MG/2 ML VIAL IV SCH ×4 (05:50→23:55)
[2022-06-29 06:36] LABS: Glucose,Whole Blood 146 mg/dL (70-110)
[2022-06-29] MEDS: INSULIN ASPART (NovoLOG) 100 UNIT/ML VIAL SQ SCH ×4 (06:52→21:00)
[2022-06-29 06:59] LABS: Anisocytosis Marked; Basophils % (A) 0 %; Eosinophils % (A) 0 %; HCT 26.2 % (39.0-53.0); HGB 8.3 gm/dL (13.0-17.5); Hypochromasia Moderate; Lymphocytes # (A) 0.5 k/uL (1.0-4.8); Lymphocytes % (A) 4 %; MCH 29.3 pg (25.0-35.0); MCHC 31.6 g/dL (31.0-37.0); MCV 92.8 fL (80.0-100.0); Macrocytosis Moderate; Mean Platelet Volume 8.3; Monocytes # (A) 0.4 k/uL (0-1.0); Monocytes % (A) 3 %; Neutrophils # (A) 11.5 k/uL (1.3-7.7); Neutrophils % (A) 92 %; Platelet Count 213 k/uL (150-450); Poikilocytosis Moderate; RBC 2.83 m/uL (4.30-5.90); WBC 12.5 k/uL (3.8-10.6)
--- NOTE | 2022-06-29 07:05 | PN ---
PROGRESS NOTE DATE OF SERVICE: 06/28/2022 SUBJECTIVE: This is a 62-year-old gentleman admitted with COPD acute exacerbation, pneumonia, possibly hospital-acquired pneumonia, is being closely monitored. The patient is on non-rebreather mask. The patient is monitored in ICU. Dr. Barnes is following the patient as well as Dr. Nova. The patient is on broad-spectrum antibiotics. Cultures are negative so far. PAST MEDICAL HISTORY: Reviewed. REVIEW OF SYSTEMS: A 14-point review of system is negative. MEDICATIONS: Include DuoNeb. Dose and rest of medication noted. PHYSICAL EXAMINATION: VITAL SIGNS: Pulse is 100, blood pressure 102/69, respirations 18. HEENT: Conjunctivae normal. CHEST: The patient had significant difficulty in breathing. Accessory muscles respiration acting. CARDIOVASCULAR: S1, S2 muffled. RESPIRATIONS: Bilateral scattered rhonchi and crackles. ABDOMEN: Soft. NERVOUS SYSTEM: Nonfocal. LABORATORY DATA: Labs are reviewed. Chest x-ray reviewed personally. ASSESSMENT: 1. Chronic obstructive pulmonary disease acute exacerbation with possible right lower lobe pneumonia, possibly gram-negative, possibly hospital-acquired pneumonia with acute hypoxic respiratory failure, on non-rebreather mask. 2. History of lung cancer and lobectomy. 3. Hypertension. 4. Hyperlipidemia. 5. Coronary artery disease. 6. Multiple medical issues. RECOMMENDATIONS: Recommend to continue current management and symptomatic treatment. Continue with bronchodilators. Continue with empiric antibiotics. Follow the cultures. Continue with IV steroids. Monitor blood sugars closely. Closely follow with multiple consultants. Prognosis extremely guarded. The patient is on a combination of vancomycin and cefepime. Further recommendations to follow. MMODL / IJN: [id number] /
[2022-06-29 07:07] LABS: RDW 25.5 % (11.5-15.5)
[2022-06-29] MEDS: PANTOPRAZOLE 40 MG TABLET PO SCH (07:10)
[2022-06-29 07:12] LABS: African American GFR (CKD) >90 (>60 ml/min/1.73 sqM); Anion Gap 2 mmol/L; Blood Urea Nitrogen 19 mg/dL (9-20); Calcium 8.1 mg/dL (8.4-10.2); Carbon Dioxide 28 mmol/L (22-30); Chloride 105 mmol/L (98-107); Glucose 136 mg/dL (74-99); Non-African American GFR(CKD) >90 (>60 ml/min/1.73 sqM); Potassium 4.7 mmol/L (3.5-5.1); Sodium 135 mmol/L (137-145)
--- NOTE | 2022-06-29 07:19 | XR ---
EXAMINATION TYPE: XR chest 1V portable DATE OF EXAM: 06/29/2022 6:38 AM COMPARISON: Chest radiograph from one day prior. TECHNIQUE: XR chest 1V portable Portable AP radiograph of the chest. CLINICAL INDICATION:Male, 62 years old with history of SOB; FINDINGS: Lungs/Pleura: Similar multifocal airspace opacities. No evidence of pneumothorax . Blunting of the ri ght costophrenic angle. Pulmonary vascularity: Unremarkable. Heart/mediastinum: Cardiomediastinal silhouette is unremarkable. Musculoskeletal: No acute osseous pathology. Other findings: None Lines/Tubes: IMPRESSION: Similar multifocal airspace opacities. Similar small right pleural effusion.
[2022-06-29] MEDS: BUDESONIDE 1 MG/2 ML NEBU INHALATION SCH ×2 (07:40→20:19)
[2022-06-29] MEDS: IPRATROPIUM-ALBUTEROL 3 ML NEB INHALATION SCH ×4 (07:40→20:19)
[2022-06-29] MEDS: FORMOTEROL FUMARATE 20 MCG/2 ML NEBU INHALATION SCH ×2 (07:40→20:19)
[2022-06-29] MEDS ORDERED: NOREPINEPHRIN 4 MG-0.9% NS PMX 4 MG/250 ML ML IV ONE (07:52)
[2022-06-29] MEDS: METOPROLOL TARTRATE 12.5 MG TAB PO SCH ×2 (08:43→21:00)
[2022-06-29] MEDS: MULTIVITAMINS, THERA 1 EACH TAB PO SCH (08:44)
[2022-06-29] MEDS: APIXABAN 5 MG TAB PO SCH ×2 (08:44→20:59)
[2022-06-29] MEDS: LORazepam 0.5 MG TAB PO PRN (08:50)
--- NOTE | 2022-06-29 09:46 | P.PN ---
Subjective Progress Note Date: 06/29/22 A 62-year-old male patient with severe bullous emphysema, a chronic smoker is more than [id number] smoking history. 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 Postop course was complicated by development of chylothorax for which a Pleurx catheter was inserted and ultimately this was removed. His postop course was also complicated by development of pulmonary embolism and the patient was treated with anticoagulants and the patient continues to be on anti-coagulation with Eliquis. PET/CT that was done on 03/18/2022 showed progression of his disease with increase in the size and the metabolic activity of the mediastinal mass/lymphadenopathy. Based on that, the patient was started on treatment and the patient was given systemic chemotherapy with a combination of carboplatinum and HEAD OF ACQUISITIONS-16. He also completed radiation therapy. Since then, the patient's health has been in generally getting worse. He was hospitalized back in early June with worsening shortness of breath. At that time, he was having issues related to chemotherapy toxicity with pancytopenia. He was quite leukopenic and he was also anemic. His platelet count also dropped. During his hospital stay, the patient gradually improved and he was ultimately discharged home on oxygen. During his hospital stay, he also had a transient ischemic attack with some left-sided weakness. And neuro workup was done including a CT angiogram of the brain that showed no acute abnormalities. The patient ultimately recovered and he was started on aspirate 1 mg by mouth daily. Anti-coagulation was resumed. During this current hospitalization admission, the patient noticed that he was getting more hypoxic. Even with limited amount of activity, his pulse ox was dropping and his oxygen requirements gradually we will going up and he was using 5 L oxygen by nasal cannula. He decided to come into the hospital because of worsening shortness of breath. In the emergency, the patient was found to be quite short of breath. He had minimal amount of sputum production. No fever or chills. No reported chest pain. He was quite dyspneic. No altered mentation. Immediately, a CT angiogram was done and this rules out the possibility of pulmonary embolism. There was new areas of infiltration of the right lower lobe compared to the previous CAT scan and there was also tumor encasement of the right pulmonary artery on the posterior wall. There was also tumor encasement of the right lower lobe pulmonary vein and there was bilateral enlarged lymph nodes at the level of the abdirizak. The mass and the lymphadenopathy appears to have increased in size compared to the earlier examination. This is based on the radiologist's report. Patient is currently on high flow oxygen at 10 L in addition to a nonrebreather facemask. His current pulse ox 100%. WBC count is at 8 with a hemoglobin 9.2 and a platelet count of 188. Normal coagulation profile. D-dimer is at 1.27. Influenza screen, Covid 19 screen and RSV were all negative. He was started on IV Solu-Medrol. Is on DuoNeb about treatments [id number]. He was also started on IV cefepime and vancomycin is to be added. No major swelling in the lower extremities bilaterally. Today's evaluation of 06/28/2022, the patient is currently in the intensive care unit currently on high flow oxygen at 60 L with an FiO2 of 90%. He seems a more comfortable compared to yesterday. Breathing is less labored and his pulse ox is around 96-98%. Chest x-ray still showing bilateral pulmonary infiltrates most on the right lung and there is some infiltration of the left. Based on his immunosuppression frequent hospitalizations, the patient was started on a combination of cefepime and vancomycin. Currently is afebrile. He is hemodynamically stable. Cardiac rhythm is sinus. His echoes at 15.7 with a hemoglobin of 8.1 and a platelet count of 189. Sodium is at 139 with a potassium level of 3.9. BUN is at 70 with a creatinine of 0.5. Pro-calcitonin level is still pending. LFTs are mildly elevated with an AST of 61, ALT of 81, alkaline phosphatase of 92. His albumin level is at 2.7. No major swelling in lower extremities. Remains on anticoagulants with Eliquis. Remains on bronchodilators. Remains on IV Solu-Medrol 60 mg every 6 hours 06/29/2022, the patient is being seen for a follow-up. Remains on high flow oxygen with 60 L with an FiO2 of 80%. Chest x-ray findings of essentially unchanged. Bilateral pulmonary infiltrates worse on the right and the patient also has a chronic right-sided pleural effusion. In terms of antibiotic coverage, he is on a combination of cefepime and vancomycin for now. His pro calcitonin level was 0.06. He remains on bronchodilators. He remains on steroids. He is using the incentive spirometer and falling approximately 2000. In terms of his white count, he is white count is at 12.5 with a hemoglobin 8.3 and a platelet count of 213. Sodium is at 135, potassium is 4.7, BUN 19 and a creatinine of 0.6. Cultures are all negative including sputum and blood. His viral screen was also negative. His breathing is still labored. He desaturates upon talking. Nevertheless, one breathing through his nose, is able to maintain a saturation above 90%. His current pulse ox is around 93%. No significant tachycardia. Mild tachypnea. He is not using it is a muscle breathing. He is tolerating his diet for now. Objective - Vital Signs Vital signs: Vital Signs Temp 97 F L 06/29/22 00:00 Pulse 95 06/29/22 08:10 Resp 22 06/29/22 07:00 BP 107/73 06/29/22 07:00 Pulse Ox 97 06/29/22 07:42 FiO2 80 06/29/22 07:42 Intake & Output 06/28/22 06/29/22 06/29/22 18:59 06:59 18:59 Intake Total 670 1000 110 Output Total 2024 575 140 Balance -1355 425 -30 Weight 94.4 kg Intake: IV 50 100 10 Sodium Chloride 0.9% 1, 50 100 10 000 ml @ 50 mls/hr IV . Q20H [facility] Rx#:[id number] Intake, IV Titration 370 700 Amount Cefepime 2 gm In Sodium 200 Chloride 0.9% 100 ml @ 25 mls/hr IVPB Q8H [facility] Rx#: [id number] Sodium Chloride 0.9% 1, 120 000 ml @ 50 mls/hr IV . Q20H [facility] Rx#:[id number] Vancomycin 1,250 mg In 250 Sodium Chloride 0.9% 250 ml @ 125 mls/hr IVPB Q8HR [facility] Rx#:[id number] Vancomycin 1,500 mg In 500 Sodium Chloride 0.9% 500 ml 500 ml @ 167 mls/hr IVPB Q8H [facility] Rx#: [id number] Oral 250 200 100 Output: Urine 2024 575 140 Other: Voiding Method Urinal Urinal - Exam General Appearance no diaphoresis, no respiratory distress, speech not interrupted by breaths, no dyspnea, no pallor, not cachectic, well nourished, appears well, the patient is currently on high flow oxygen with 60 L an FiO2 of 80% , seems to much more comfortable compared to yesterday in terms of his breathing. Not using accessory muscles of breathing. He had a full breakfast t his morning HEENT no pursed lip breathing, no jugular venous distention, no mucous membrane cyanosis, no perioral cyanosis, mallampati classification: class 1 Chest no barrel chest, no retractions, no sternocleidomastoid muscle contractions, no supraclavicular retractions, no intercostal retractions, no prolonged expiratory wheezing, no decreased air movement, no rhonchi, no hyperinflation, (normal) adventitious sounds: rales / crackles: bilaterally: midlung gleason, decreased air movement Heart no right ventricular heave, no distant heart sounds, no s3 gallop, (normal) jugular vein: jugular venous distention: by 0cm, (normal) jugular vein GI bowel sounds: Abdominal exam revealed normal bowel sounds. The abdomen was soft, non-tender, and without masses, organomegaly, or appreciable enlargement of the abdominal aorta. Extremities no cyanosis, no clubbing, no edema Neurologic no decreased mental status, no somnolence, no confusion Assisstive Devices: ambulates with no assitive devices Gait and Mobility: gait WNL, full weight bearing Examination of the skin revealed no evidence of significant rashes, suspicious appearing nevi or other concerning lesions. - Labs CBC & Chem 7: 06/29/22 06:26 06/29/22 06:26 Labs: Abnormal Lab Results - Last 24 Hours (Table) 06/28/22 06/28/22 06/28/22 Range/Units 12:58 16:14 20:06 WBC (3.8-10.6) k/uL RBC (4.30-5.90) m/uL Hgb (13.0-17.5) gm/dL Hct (39.0-53.0) % RDW (11.5-15.5) % Neutrophils # (1.3-7.7) k/uL Lymphocytes # (1.0-4.8) k/uL Sodium (137-145) mmol/L Creatinine (0.66-1.25) mg/dL Glucose (74-99) mg/dL POC Glucose (mg/dL) 173 H 163 H 146 H (70-110) mg/dL Calcium (8.4-10.2) mg/dL 06/29/22 06/29/22 06/29/22 Range/Units 06:26 06:26 06:34 WBC 12.5 H (3.8-10.6) k/uL RBC 2.83 L (4.30-5.90) m/uL Hgb 8.3 L (13.0-17.5) gm/dL Hct 26.2 L (39.0-53.0) % RDW 25.5 H (11.5-15.5) % Neutrophils # 11.5 H (1.3-7.7) k/uL Lymphocytes # 0.5 L (1.0-4.8) k/uL Sodium 135 L (137-145) mmol/L Creatinine 0.61 L (0.66-1.25) mg/dL Glucose 136 H (74-99) mg/dL POC Glucose (mg/dL) 146 H (70-110) mg/dL Calcium 8.1 L (8.4-10.2) mg/dL Microbiology - Last 24 Hours (Table) 06/26/22 13:25 Blood Culture - Preliminary Blood No Growth after 48 hours 06/26/22 13:25 Blood Culture - Preliminary Blood No Growth after 48 hours 06/27/22 16:37 Gram Stain - Preliminary Sputum Sputum Culture - Preliminary Assessment and Plan Plan: Acute right lung pneumonia. Noted the patient is post right lobectomy involving the right lower lobe. There is a new area of consolidation in the right lung base which was absent on previous evaluation. Rule out a hospital-acquired pneumonia. At same time, the patient is a chronic right-sided pleural effusion, unchanged compared to the previous CAT scan. Chest x-ray from today is showing stable bilateral pulmonary infiltrates. Currently on high flow oxygen with 60 L an FiO2 of 80%, I would say there is limited improvement since yesterday and his condition is essentially unchanged. The exact etiology for his underlying pneumonia is not clear. Noted the patient was immunosuppressed. Fungal elements cannot be completely ruled out. Atypical microorganisms and anaerobes are not covered at this point in time and for that reason I'm going to do some antibiotic changes. Acute hypoxic respiratory failure secondary to above. No evidence of any pulmonary embolism. Rule out an early ARDS Acute on chronic shortness of breath secondary to above Advanced COPD with extensive bullous changes in the upper lobes maintain on Trelegy Ellipta on outpatient basis Chronic hypoxic respiratory failure maintained on oxygen at 2 L/m nasal cannula Squamous cell carcinoma of the lung, T3 N0 M0 and the patient has undergone previous right lower lobe resection Small cell lung cancer with positive subcarinal lymph nodes and the patient is completing chemotherapy and radiation therapy History of pulmonary embolism. The patient bilateral multilobar pulmonary embolism and he was receiving and the coagulation with Eliquis on outpatient basis. This pulmonary embolism occurred following his thoracotomy and right lower lobe resection and the patient was being treated with anticoagulants. Acute leukopenia, chemotherapy-induced and the patient received Neulasta on an outpatient basis recovered and the white cell count has improved Acute thrombocytopenia, chemotherapy-induced, improved Acute anemia, chemotherapy-induced. Hemoglobin is 9.2 Generalized weakness secondary to above Difficulty swallowing likely secondary to radiation to the chest, rule out a component of radiation esophagitis History of chylothorax and the patient has undergone previous Pleurx catheter insertion. Currently the catheter is out and the patient has some loculated stable right-sided pleural effusion History of coronary artery disease with previous stenting of the LAD, currently stable Plan The patient was placed on Airvo 60 L an appetite of 90%, keep the same setting for now and gradually wean down FiO2 Continue the combination of vancomycin and stop the cefepime and switch this patient IV Zosyn which will give him a better anaerobic coverage. I'm going also to add Levaquin 750 mg by mouth on a daily basis. Possibility of fungal pneumonias are also within the differential diagnosis. I'm going to add Eraxis through his antibiotic regimen. Check Legionella urine antigen Continue bronchodilators Continue steroids Lasix 40 mg IV 1 Continue to coagulation with Eliquis IV to KVO. CAT scan of the chest was reviewed Blood cultures are negative Check pro calcitonin level, and the levels are low. We'll continue to follow Condition is critical and prognosis poor based above-mentioned comorbidities.
[2022-06-29] MEDS ORDERED: LEVOFLOXACIN 750MG-D5W PMX 750 MG in DEXTROSE/WATER 1 150ML.BAG IVPB SCH (10:00)
[2022-06-29] MEDS: PIPERACILLIN-TAZOBACTAM 3.375 GM in SODIUM CHLORIDE 0.9% 100 ML IVPB SCH ×2 (10:10→18:18)
[2022-06-29] MEDS ORDERED: ANIDULAFUNGIN 200 MG in SODIUM CHLORIDE 0.9% 200 ML IVPB ONE (10:15)
[2022-06-29] MEDS: LEVOFLOXACIN 750 MG TAB PO SCH (10:44)
[2022-06-29 11:14] LABS: Glucose,Whole Blood 233 mg/dL (70-110)
[2022-06-29 16:48] LABS: Glucose,Whole Blood 159 mg/dL (70-110)
[2022-06-29 20:24] LABS: Glucose,Whole Blood 196 mg/dL (70-110)
[2022-06-29] MEDS: ATORVASTATIN 80 MG TAB PO SCH (21:00)
--- NOTE | 2022-06-29 21:30 | P.PN ---
Subjective Progress Note Date: 06/28/22 Principal diagnosis: Pneumonia Patient is a 62-year-old male with a past medical history significant for emphysema chronic smoker and also small cell lung cancer as well as squamous cell cancer of the lung status post right lower lobectomy postop course complicated by chylothorax for the Pleurx catheter has been placed also with a history of PE, patient presented to the hospital with increasing shortness of breath and hypoxemia CT with evidence of extensive infiltrate right lower lobe and loculated effusion. On today's evaluation that is 06/28/2022, patient denies having any fever or chills, breathing slightly comfortably/shortness of breath on exertion continued to have dry hacking cough no nausea no vomiting no abdominal pain or diarrhea Objective - Vital Signs Vital signs: Vital Signs Temp 97.2 F L 06/28/22 08:00 Pulse 98 06/28/22 11:13 Resp 34 H 06/28/22 11:00 BP 107/74 06/28/22 11:00 Pulse Ox 89 L 06/28/22 11:00 FiO2 90 06/28/22 11:13 Intake & Output 06/27/22 06/28/22 06/28/22 18:59 06:59 18:59 Intake Total 1750 245 Output Total 1600 1675 Balance 150 -1430 Weight 73.936 kg 93.4 kg Intake: Intake, IV Titration 1000 245 Amount Cefepime 2 gm In Sodium 200 Chloride 0.9% 100 ml @ 25 mls/hr IVPB Q8H [facility] Rx#: [id number] Sodium Chloride 0.9% 1, 550 120 000 ml @ 50 mls/hr IV . Q20H [facility] Rx#:[id number] Vancomycin 1,250 mg In 250 125 Sodium Chloride 0.9% 250 ml @ 125 mls/hr IVPB Q8HR [facility] Rx#:[id number] Oral 750 Output: Urine 1600 1675 Other: Voiding Method Urinal - Exam GENERAL DESCRIPTION: A middle-age male up in the chair in no distress RESPIRATORY SYSTEM: Unlabored breathing , coarse breath sounds bilaterally HEART: S1 S2 regular rate and rhythm , ABDOMEN: Soft , no tenderness EXTREMITIES: No edema feet - Labs CBC & Chem 7: 06/29/22 06:26 06/29/22 06:26 Labs: Abnormal Lab Results - Last 24 Hours (Table) 06/26/22 06/27/22 06/27/22 Range/Units 13:25 12:40 16:32 WBC (3.8-10.6) k/uL RBC (4.30-5.90) m/uL Hgb (13.0-17.5) gm/dL Hct (39.0-53.0) % RDW (11.5-15.5) % Neutrophils # (1.3-7.7) k/uL Lymphocytes # (1.0-4.8) k/uL Sodium 136 L (137-145) mmol/L Creatinine 0.57 L (0.66-1.25) mg/dL Glucose 163 H (74-99) mg/dL POC Glucose (mg/dL) 155 H (70-110) mg/dL Hemoglobin A1c 6.6 H (0.0-6.0) % Calcium 8.1 L (8.4-10.2) mg/dL AST (17-59) U/L ALT (4-49) U/L C-Reactive Protein (<1.0) mg/dL Total Protein (6.3-8.2) g/dL Albumin (3.5-5.0) g/dL 06/27/22 06/27/22 06/28/22 Range/Units 19:38 20:42 05:49 WBC (3.8-10.6) k/uL RBC (4.30-5.90) m/uL Hgb (13.0-17.5) gm/dL Hct (39.0-53.0) % RDW (11.5-15.5) % Neutrophils # (1.3-7.7) k/uL Lymphocytes # (1.0-4.8) k/uL Sodium 135 L (137-145) mmol/L Creatinine 0.52 L (0.66-1.25) mg/dL Glucose 139 H (74-99) mg/dL POC Glucose (mg/dL) 185 H 205 H (70-110) mg/dL Hemoglobin A1c (0.0-6.0) % Calcium 7.8 L (8.4-10.2) mg/dL AST 61 H (17-59) U/L ALT 81 H (4-49) U/L C-Reactive Protein 7.0 H (<1.0) mg/dL Total Protein 5.2 L (6.3-8.2) g/dL Albumin 2.7 L (3.5-5.0) g/dL 06/28/22 06/28/22 Range/Units 05:49 06:41 WBC 13.7 H (3.8-10.6) k/uL RBC 2.80 L (4.30-5.90) m/uL Hgb 8.1 L (13.0-17.5) gm/dL Hct 25.8 L (39.0-53.0) % RDW 26.1 H (11.5-15.5) % Neutrophils # 12.8 H (1.3-7.7) k/uL Lymphocytes # 0.3 L (1.0-4.8) k/uL Sodium (137-145) mmol/L Creatinine (0.66-1.25) mg/dL Glucose (74-99) mg/dL POC Glucose (mg/dL) 151 H (70-110) mg/dL Hemoglobin A1c (0.0-6.0) % Calcium (8.4-10.2) mg/dL AST (17-59) U/L ALT (4-49) U/L C-Reactive Protein (<1.0) mg/dL Total Protein (6.3-8.2) g/dL Albumin (3.5-5.0) g/dL Microbiology - Last 24 Hours (Table) 06/27/22 16:37 Gram Stain - Preliminary Sputum Sputum Culture - Preliminary 06/26/22 13:25 Blood Culture - Preliminary Blood No Growth after 24 hours 06/26/22 13:25 Blood Culture - Preliminary Blood No Growth after 24 hours Assessment and Plan (1) Pneumonia Current Visit: Yes Status: Acute Code(s): J18.9 - PNEUMONIA, UNSPECIFIED ORGANISM SNOMED Code(s): 727900427 Plan: 1patient presented to hospital with increasing shortness of breath which is likely multifactorial in this patient who do have a history of emphysema also with a history of lung cancer now with evidence of right-sided loculated fluid concerning for possible empyema and has been in and out of the hospital we will need to cover for resistant gram-positive as well as gram-negative. 2we will try to obtain sputum for Gram stain and culture , the patient pro calcitonin came back as 0.06 which is normal 3patient will benefit from drainage of the fluid and getting microbiological diagnosis 4patient antibiotic has been switched over to Zosyn, Levaquin and Eraxis by pulmonary kidney function need to monitor closely Time with Patient: Less than 30
--- NOTE | 2022-06-29 21:32 | P.PN ---
Subjective Progress Note Date: 06/29/22 Principal diagnosis: Pneumonia Patient is a 62-year-old male with a past medical history significant for emphysema chronic smoker and also small cell lung cancer as well as squamous cell cancer of the lung status post right lower lobectomy postop course complicated by chylothorax for the Pleurx catheter has been placed also with a history of PE, patient presented to the hospital with increasing shortness of breath and hypoxemia CT with evidence of extensive infiltrate right lower lobe and loculated effusion. On today's evaluation that is 06/29/2022, patient remains to be afebrile, the patient is breathing slightly comfortably and is down to 72% FiO2, the patient continued to have dry hacking cough no nausea no vomiting no abdominal pain or diarrhea Objective - Vital Signs Vital signs: Vital Signs Temp 96.8 F L 06/29/22 12:00 Pulse 98 06/29/22 12:00 Resp 27 H 06/29/22 12:00 BP 97/62 06/29/22 12:00 Pulse Ox 95 06/29/22 12:00 FiO2 70 06/29/22 12:30 Intake & Output 06/28/22 06/29/22 06/29/22 18:59 06:59 18:59 Intake Total 670 1000 815 Output Total 2024 575 490 Balance -1355 425 325 Weight 94.4 kg Intake: IV 50 100 30 Sodium Chloride 0.9% 1, 50 100 30 000 ml @ 50 mls/hr IV . Q20H [facility] Rx#:[id number] Intake, IV Titration 370 700 685 Amount Anidulafungin 200 mg In 84 Sodium Chloride 0.9% 200 ml @ 84 mls/hr IVPB ONCE ONE Rx#:[id number] Cefepime 2 gm In Sodium 200 Chloride 0.9% 100 ml @ 25 mls/hr IVPB Q8H [facility] Rx#: [id number] Piperacillin-Tazobactam 3 100 .375 gm In Sodium Chloride 0.9% 100 ml @ 25 mls/hr IVPB Q8H [facility] Rx#: [id number] Sodium Chloride 0.9% 1, 120 000 ml @ 50 mls/hr IV . Q20H [facility] Rx#:[id number] Vancomycin 1,250 mg In 250 Sodium Chloride 0.9% 250 ml @ 125 mls/hr IVPB Q8HR [facility] Rx#:[id number] Vancomycin 1,500 mg In 500 501 Sodium Chloride 0.9% 500 ml 500 ml @ 167 mls/hr IVPB Q8H [facility] Rx#: [id number] Oral 250 200 100 Output: Urine 4465 487 886 Other: Voiding Method Urinal Urinal Urinal - Exam GENERAL DESCRIPTION: A middle-age male up in the chair in no distress RESPIRATORY SYSTEM: Unlabored breathing , coarse breath sounds bilaterally HEART: S1 S2 regular rate and rhythm , ABDOMEN: Soft , no tenderness EXTREMITIES: No edema feet - Labs CBC & Chem 7: 06/29/22 06:26 06/29/22 06:26 Labs: Abnormal Lab Results - Last 24 Hours (Table) 06/28/22 06/28/22 06/28/22 Range/Units 12:58 16:14 20:06 WBC (3.8-10.6) k/uL RBC (4.30-5.90) m/uL Hgb (13.0-17.5) gm/dL Hct (39.0-53.0) % RDW (11.5-15.5) % Neutrophils # (1.3-7.7) k/uL Lymphocytes # (1.0-4.8) k/uL Sodium (137-145) mmol/L Creatinine (0.66-1.25) mg/dL Glucose (74-99) mg/dL POC Glucose (mg/dL) 173 H 163 H 146 H (70-110) mg/dL Calcium (8.4-10.2) mg/dL 06/29/22 06/29/22 06/29/22 Range/Units 06:26 06:26 06:34 WBC 12.5 H (3.8-10.6) k/uL RBC 2.83 L (4.30-5.90) m/uL Hgb 8.3 L (13.0-17.5) gm/dL Hct 26.2 L (39.0-53.0) % RDW 25.5 H (11.5-15.5) % Neutrophils # 11.5 H (1.3-7.7) k/uL Lymphocytes # 0.5 L (1.0-4.8) k/uL Sodium 135 L (137-145) mmol/L Creatinine 0.61 L (0.66-1.25) mg/dL Glucose 136 H (74-99) mg/dL POC Glucose (mg/dL) 146 H (70-110) mg/dL Calcium 8.1 L (8.4-10.2) mg/dL 06/29/22 Range/Units 11:12 WBC (3.8-10.6) k/uL RBC (4.30-5.90) m/uL Hgb (13.0-17.5) gm/dL Hct (39.0-53.0) % RDW (11.5-15.5) % Neutrophils # (1.3-7.7) k/uL Lymphocytes # (1.0-4.8) k/uL Sodium (137-145) mmol/L Creatinine (0.66-1.25) mg/dL Glucose (74-99) mg/dL POC Glucose (mg/dL) 233 H (70-110) mg/dL Calcium (8.4-10.2) mg/dL Microbiology - Last 24 Hours (Table) 06/27/22 16:37 Gram Stain - Final Sputum Sputum Culture - Final 06/26/22 13:25 Blood Culture - Preliminary Blood No Growth after 48 hours 06/26/22 13:25 Blood Culture - Preliminary Blood No Growth after 48 hours Assessment and Plan (1) Pneumonia Current Visit: Yes Status: Acute Code(s): J18.9 - PNEUMONIA, UNSPECIFIED ORGANISM SNOMED Code(s): 083917879 Plan: 1patient presented to hospital with increasing shortness of breath which is likely multifactorial in this patient who do have a history of emphysema also with a history of lung cancer now with evidence of right-sided loculated fluid concerning for possible empyema and has been in and out of the hospital we will need to cover for resistant gram-positive as well as gram-negative. 2we will try to obtain sputum for Gram stain and culture , the patient pro calcitonin came back as 0.06 which is normal 3patient will benefit from drainage of the fluid , or bronchoscopy and sputum has been negative so far for microbiological diagnosis 4patient is currently covered with vancomycin Zosyn, Levaquin and Eraxis, will discuss with pulmonary to narrow down on his antibiotics Time with Patient: Less than 30
[2022-06-30] MEDS: VANCOMYCIN 1,500 MG in SODIUM CHLORIDE 0.9% 500 ML 500 ML IVPB SCH ×3 (02:43→10:57)
[2022-06-30] MEDS: PIPERACILLIN-TAZOBACTAM 3.375 GM in SODIUM CHLORIDE 0.9% 100 ML IVPB SCH ×3 (02:43→17:44)
[2022-06-30 06:38] LABS: Glucose,Whole Blood 161 mg/dL (70-110)
[2022-06-30] MEDS: methylPREDNISolone SOD SUCCI 125 MG/2 ML VIAL IV SCH ×4 (06:45→23:17)
[2022-06-30] MEDS: INSULIN ASPART (NovoLOG) 100 UNIT/ML VIAL SQ SCH ×4 (06:45→20:52)
[2022-06-30] MEDS: PANTOPRAZOLE 40 MG TABLET PO SCH (06:46)
--- NOTE | 2022-06-30 07:17 | XR ---
EXAMINATION TYPE: XR chest 1V portable DATE OF EXAM: 06/30/2022 HISTORY: Shortness of breath. COMPARISON: 06/29/2022 TECHNIQUE: Single view of the chest is submitted. FINDINGS: Demonstrated are scattered senescent parenchymal change. Reticulonodular and airspace infiltrates persist bilaterally right greater than left without signific ant change. The heart is stable. Hilar and mediastinal structures are within normal limits. Degenerative changes are seen of the dorsal spine. IMPRESSION: 1. Reticulonodular and airspace infiltrates persist bilaterally right greater than left without sign ificant change.
[2022-06-30] MEDS: IPRATROPIUM-ALBUTEROL 3 ML NEB INHALATION SCH ×4 (08:05→19:43)
[2022-06-30] MEDS: FORMOTEROL FUMARATE 20 MCG/2 ML NEBU INHALATION SCH ×2 (08:13→19:43)
[2022-06-30] MEDS: BUDESONIDE 1 MG/2 ML NEBU INHALATION SCH ×2 (08:26→19:43)
[2022-06-30] MEDS ORDERED: VANCOMYCIN TROUGH DUE 1 EACH MISC MISCELLANE ONE (09:00)
--- NOTE | 2022-06-30 09:18 | P.PN ---
Subjective Progress Note Date: 06/30/22 A 62-year-old male patient with severe bullous emphysema, a chronic smoker is more than [id number] smoking history. 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 Postop course was complicated by development of chylothorax for which a Pleurx catheter was inserted and ultimately this was removed. His postop course was also complicated by development of pulmonary embolism and the patient was treated with anticoagulants and the patient continues to be on anti-coagulation with Eliquis. PET/CT that was done on 03/18/2022 showed progression of his disease with increase in the size and the metabolic activity of the mediastinal mass/lymphadenopathy. Based on that, the patient was started on treatment and the patient was given systemic chemotherapy with a combination of carboplatinum and DIRECTOR INTERNAL AUDIT-16. He also completed radiation therapy. Since then, the patient's health has been in generally getting worse. He was hospitalized back in early June with worsening shortness of breath. At that time, he was having issues related to chemotherapy toxicity with pancytopenia. He was quite leukopenic and he was also anemic. His platelet count also dropped. During his hospital stay, the patient gradually improved and he was ultimately discharged home on oxygen. During his hospital stay, he also had a transient ischemic attack with some left-sided weakness. And neuro workup was done including a CT angiogram of the brain that showed no acute abnormalities. The patient ultimately recovered and he was started on aspirate 1 mg by mouth daily. Anti-coagulation was resumed. During this current hospitalization admission, the patient noticed that he was getting more hypoxic. Even with limited amount of activity, his pulse ox was dropping and his oxygen requirements gradually we will going up and he was using 5 L oxygen by nasal cannula. He decided to come into the hospital because of worsening shortness of breath. In the emergency, the patient was found to be quite short of breath. He had minimal amount of sputum production. No fever or chills. No reported chest pain. He was quite dyspneic. No altered mentation. Immediately, a CT angiogram was done and this rules out the possibility of pulmonary embolism. There was new areas of infiltration of the right lower lobe compared to the previous CAT scan and there was also tumor encasement of the right pulmonary artery on the posterior wall. There was also tumor encasement of the right lower lobe pulmonary vein and there was bilateral enlarged lymph nodes at the level of the abdirizak. The mass and the lymphadenopathy appears to have increased in size compared to the earlier examination. This is based on the radiologist's report. Patient is currently on high flow oxygen at 10 L in addition to a nonrebreather facemask. His current pulse ox 100%. WBC count is at 8 with a hemoglobin 9.2 and a platelet count of 188. Normal coagulation profile. D-dimer is at 1.27. Influenza screen, Covid 19 screen and RSV were all negative. He was started on IV Solu-Medrol. Is on DuoNeb about treatments [id number]. He was also started on IV cefepime and vancomycin is to be added. No major swelling in the lower extremities bilaterally. Today's evaluation of 06/28/2022, the patient is currently in the intensive care unit currently on high flow oxygen at 60 L with an FiO2 of 90%. He seems a more comfortable compared to yesterday. Breathing is less labored and his pulse ox is around 96-98%. Chest x-ray still showing bilateral pulmonary infiltrates most on the right lung and there is some infiltration of the left. Based on his immunosuppression frequent hospitalizations, the patient was started on a combination of cefepime and vancomycin. Currently is afebrile. He is hemodynamically stable. Cardiac rhythm is sinus. His echoes at 15.7 with a hemoglobin of 8.1 and a platelet count of 189. Sodium is at 139 with a potassium level of 3.9. BUN is at 70 with a creatinine of 0.5. Pro-calcitonin level is still pending. LFTs are mildly elevated with an AST of 61, ALT of 81, alkaline phosphatase of 92. His albumin level is at 2.7. No major swelling in lower extremities. Remains on anticoagulants with Eliquis. Remains on bronchodilators. Remains on IV Solu-Medrol 60 mg every 6 hours 06/29/2022, the patient is being seen for a follow-up. Remains on high flow oxygen with 60 L with an FiO2 of 80%. Chest x-ray findings of essentially unchanged. Bilateral pulmonary infiltrates worse on the right and the patient also has a chronic right-sided pleural effusion. In terms of antibiotic coverage, he is on a combination of cefepime and vancomycin for now. His pro calcitonin level was 0.06. He remains on bronchodilators. He remains on steroids. He is using the incentive spirometer and falling approximately 2000. In terms of his white count, he is white count is at 12.5 with a hemoglobin 8.3 and a platelet count of 213. Sodium is at 135, potassium is 4.7, BUN 19 and a creatinine of 0.6. Cultures are all negative including sputum and blood. His viral screen was also negative. His breathing is still labored. He desaturates upon talking. Nevertheless, one breathing through his nose, is able to maintain a saturation above 90%. His current pulse ox is around 93%. No significant tachycardia. Mild tachypnea. He is not using it is a muscle breathing. He is tolerating his diet for now. Extreme 2022, the patient is on high flow oxygen at 5 L with an FiO2 of 70%. Remains on broad-spectrum antibiotic and antifungal agents. He is currently on a combination of Zosyn, vancomycin, Levaquin and Eraxis. No positive cultures. Chest x-ray findings of essentially unchanged. The pro-calcitonin level was low. No blood work from today. The blood work from yesterday was noted. He is supposed to have a CBC and a basic metabolic profile. His speech is improved. Is able to speak longer sentences. His pulse ox is around 91-92% on the above-mentioned settings. He remains on IV steroids. Fluid balance has been in the order of 930 mL negative. The patient is tolerating diet. No aspiration. Legionella urine antigen came back negative. Objective - Vital Signs Vital signs: Vital Signs Temp 97 F L 06/30/22 00:00 Pulse 99 06/30/22 09:00 Resp 25 H 06/30/22 09:00 BP 106/70 06/30/22 09:00 Pulse Ox 91 L 06/30/22 09:00 FiO2 70 06/30/22 09:00 Intake & Output 06/29/22 06/30/22 06/30/22 18:59 06:59 18:59 Intake Total 1215 1409 20 Output Total 690 750 350 Balance 525 659 -330 Weight 77.2 kg Intake: IV 70 100 20 .9NS 40 100 20 Sodium Chloride 0.9% 1, 30 000 ml @ 50 mls/hr IV . Q20H [facility] Rx#:[id number] Intake, IV Titration 1045 1009 Amount Anidulafungin 200 mg In 252 Sodium Chloride 0.9% 200 ml @ 84 mls/hr IVPB ONCE ONE Rx#:[id number] Piperacillin-Tazobactam 3 125 175 .375 gm In Sodium Chloride 0.9% 100 ml @ 25 mls/hr IVPB Q8H [facility] Rx#: [id number] Vancomycin 1,500 mg In 668 834 Sodium Chloride 0.9% 500 ml 500 ml @ 167 mls/hr IVPB Q8H [facility] Rx#: [id number] Oral 100 300 Output: Urine 690 750 350 Other: Voiding Method Urinal Urinal # Voids 1 # Bowel Movements 1 - Exam General Appearance no diaphoresis, no respiratory distress, speech not interrupted by breaths, no dyspnea, no pallor, not cachectic, well nourished, appears well, the patient is currently on high flow oxygen with 55 L an FiO2 of 70% , seems to much more comfortable compared to yesterday in terms of his breathing. Not using accessory muscles of breathing. He had a full breakfast this morning HEENT no pursed lip breathing, no jugular venous distention, no mucous membrane cyanosis, no perioral cyanosis, mallampati classification: class 1 Chest no barrel chest, no retractions, no sternocleidomastoid muscle contractions, no supraclavicular retractions, no intercostal retractions, no prolonged expiratory wheezing, no decreased air movement, no rhonchi, no hyperinflation, (normal) adventitious sounds: rales / crackles: bilaterally: midlung gleason, decreased air movement Heart no right ventricular heave, no distant heart sounds, no s3 gallop, (normal) jugular vein: jugular venous distention: by 0cm, (normal) jugular vein GI bowel sounds: Abdominal exam revealed normal bowel sounds. The abdomen was soft, non-tender, and without masses, organomegaly, or appreciable enlargement of the abdominal aorta. Extremities no cyanosis, no clubbing, no edema Neurologic no decreased mental status, no somnolence, no confusion Assisstive Devices: ambulates with no assitive devices Gait and Mobility: gait WNL, full weight bearing Examination of the skin revealed no evidence of significant rashes, suspicious appearing nevi or other concerning lesions. - Labs CBC & Chem 7: 06/29/22 06:26 06/29/22 06:26 Labs: Abnormal Lab Results - Last 24 Hours (Table) 06/29/22 06/29/22 06/29/22 Range/Units 11:12 16:46 20:22 POC Glucose (mg/dL) 233 H 159 H 196 H (70-110) mg/dL 06/30/22 Range/Units 06:36 POC Glucose (mg/dL) 161 H (70-110) mg/dL Microbiology - Last 24 Hours (Table) 06/26/22 13:25 Blood Culture - Preliminary Blood No Growth after 72 hours 06/26/22 13:25 Blood Culture - Preliminary Blood No Growth after 72 hours 06/27/22 16:37 Gram Stain - Final Sputum Sputum Culture - Final Assessment and Plan Plan: Acute right lung pneumonia. Noted the patient is post right lobectomy involving the right lower lobe. There is a new area of consolidation in the right lung base which was absent on previous evaluation. Rule out a hospital-acquired pneumonia. At same time, the patient is a chronic right-sided pleural effusion, unchanged compared to the previous CAT scan. Chest x-ray from today is showing stable bilateral pulmonary infiltrates. Currently on high flow oxygen with 60 L an FiO2 of 80%, I would say there is limited improvement since yesterday and his condition is essentially unchanged. The exact etiology for his underlying pneumonia is not clear. Noted the patient was immunosuppressed. Fungal elements cannot be completely ruled out. The patient remains on broad-spectrum antibiotics for now. Limited improvement in oxygenation over the past 24 hours. Currently is on 55 L with an FiO2 of 70%. Acute hypoxic respiratory failure secondary to above. No evidence of any pulmonary embolism. Rule out an early ARDS Acute on chronic shortness of breath secondary to above Advanced COPD with extensive bullous changes in the upper lobes maintain on Trelegy Ellipta on outpatient basis Chronic hypoxic respiratory failure maintained on oxygen at 2 L/m nasal cannula Squamous cell carcinoma of the lung, T3 N0 M0 and the patient has undergone previous right lower lobe resection Small cell lung cancer with positive subcarinal lymph nodes and the patient is completing chemotherapy and radiation therapy History of pulmonary embolism. The patient bilateral multilobar pulmonary embolism and he was receiving and the coagulation with Eliquis on outpatient basis. This pulmonary embolism occurred following his thoracotomy and right lower lobe resection and the patient was being treated with anticoagulants. Acute leukopenia, chemotherapy-induced and the patient received Neulasta on an outpatient basis recovered and the white cell count has improved Acute thrombocytopenia, chemotherapy-induced, improved Acute anemia, chemotherapy-induced. Hemoglobin is 9.2 Generalized weakness secondary to above Difficulty swallowing likely secondary to radiation to the chest, rule out a component of radiation esophagitis History of chylothorax and the patient has undergone previous Pleurx catheter insertion. Currently the catheter is out and the patient has some loculated stable right-sided pleural effusion History of coronary artery disease with previous stenting of the LAD, currently stable Plan The patient was placed on Airvo 55 L with an FiO2 of 70%. We'll gradually wean We'll continue same antibiotic coverage Check Legionella urine antigen was checked and this was negative Continue bronchodilators Continue steroids Lasix 20 mg IV every 12 hours Continue to coagulation with Eliquis IV to KVO. CAT scan of the chest was reviewed Blood cultures are negative Check pro calcitonin level, and the levels are low. We'll continue to follow Condition is critical and prognosis poor based above-mentioned comorbidities.
[2022-06-30] MEDS: ANIDULAFUNGIN 100 MG in SODIUM CHLORIDE 0.9% 100 ML IVPB SCH (09:57)
[2022-06-30] MEDS: FUROSEMIDE 10 MG/ML 2 ML VIAL IV SCH ×2 (09:57→20:52)
[2022-06-30] MEDS: LEVOFLOXACIN 750 MG TAB PO SCH (09:58)
[2022-06-30] MEDS: METOPROLOL TARTRATE 12.5 MG TAB PO SCH ×2 (09:58→20:51)
[2022-06-30] MEDS: APIXABAN 5 MG TAB PO SCH ×2 (09:58→20:51)
[2022-06-30] MEDS: MULTIVITAMINS, THERA 1 EACH TAB PO SCH (09:58)
--- NOTE | 2022-06-30 11:07 | PN ---
PROGRESS NOTE DATE OF SERVICE: 06/29/2022 SUBJECTIVE: This is a 62-year-old gentleman admitted with COPD acute exacerbation, pneumonia, also had possibly hospital acquired pneumonia, broad-spectrum IV antibiotics. The patient is monitored in ICU. The patient continues to be hypoxic, although . The cultures including blood cultures, sputum culture are negative so far on exam. PAST MEDICAL HISTORY: Reviewed. REVIEW OF SYSTEMS: A 14-point review of systems is negative as mentioned earlier. CURRENT MEDICATIONS: Reviewed include as well as vancomycin. Dose and rest of medication noted. PHYSICAL EXAMINATION: VITAL SIGNS: Pulse is 112, blood pressure isn, respirations 27. HEENT: Conjunctivae are normal. NECK: No jugular venous distention. CARDIOVASCULAR: S1 and S2 muffled. RESPIRATORY: Scattered rhonchi and crackles. ABDOMEN: Soft. NERVOUS SYSTEM: Nonfocal. LABORATORY DATA: Labs are reviewed. Hemoglobin 8.3. ASSESSMENT: 1. Chronic obstructive pulmonary disease acute exacerbation with possible right lower lobe pneumonia, possibly gram-negative with possible hospital-acquired pneumonia with acute hypoxic respiratory failure on non-rebreather mask. 2. History of lung cancer and lobectomy. 3. Hypertension. 4. Hyperlipidemia. 5. Coronary artery disease. 6. Multiple medical issues. RECOMMENDATIONS: Recommend to continue current medications and symptomatic treatment. Otherwise continue the antibiotics and antifungals. The prognosis is extremely guarded because of the multiple complex medical issues and closely follow with Infectious Disease and Pulmonary and further recommendations to follow. We will see orders for details. MMODL / IJN: [id number] / MTDD
[2022-06-30 11:43] LABS: Glucose,Whole Blood 177 mg/dL (70-110)
[2022-06-30 13:48] LABS: Anisocytosis Marked; Basophils % (A) 0 %; Eosinophils % (A) 0 %; HCT 28.8 % (39.0-53.0); HGB 9.2 gm/dL (13.0-17.5); Hypochromasia Moderate; Lymphocytes # (A) 0.4 k/uL (1.0-4.8); Lymphocytes % (A) 3 %; MCH 29.5 pg (25.0-35.0); MCV 92.1 fL (80.0-100.0); Macrocytosis Moderate; Mean Platelet Volume 8.5; Microcytosis Slight; Monocytes # (A) 0.7 k/uL (0-1.0); Monocytes % (A) 5 %; Neutrophils # (A) 13.3 k/uL (1.3-7.7); Neutrophils % (A) 92 %; Platelet Count 275 k/uL (150-450); Poikilocytosis Moderate; RBC 3.12 m/uL (4.30-5.90); WBC 14.5 k/uL (3.8-10.6)
[2022-06-30 13:51] LABS: African American GFR (CKD) >90 (>60 ml/min/1.73 sqM); Anion Gap 6 mmol/L; Blood Urea Nitrogen 19 mg/dL (9-20); Calcium 7.9 mg/dL (8.4-10.2); Carbon Dioxide 26 mmol/L (22-30); Chloride 103 mmol/L (98-107); Glucose 142 mg/dL (74-99); Non-African American GFR(CKD) >90 (>60 ml/min/1.73 sqM); Potassium 3.6 mmol/L (3.5-5.1); Sodium 135 mmol/L (137-145)
[2022-06-30 13:54] LABS: RDW 25.5 % (11.5-15.5)
[2022-06-30] MEDS ORDERED: Potassium Replacement Protocol 1 EACH MISC MISCELLANE PRN (14:47)
[2022-06-30] MEDS ORDERED: POTASSIUM CHLORIDE ER 20 MEQ TAB.ER PO SCH (15:30)
[2022-06-30 16:50] LABS: Glucose,Whole Blood 134 mg/dL (70-110)
[2022-06-30] MEDS: VANCOMYCIN 1,250 MG in SODIUM CHLORIDE 0.9% 250 ML IVPB SCH (19:59)
[2022-06-30 20:45] LABS: Glucose,Whole Blood 149 mg/dL (70-110)
[2022-06-30] MEDS: ATORVASTATIN 80 MG TAB PO SCH (20:51)
--- NOTE | 2022-06-30 21:38 | P.PN ---
Subjective Progress Note Date: 06/30/22 Principal diagnosis: Pneumonia Patient is a 62-year-old male with a past medical history significant for emphysema chronic smoker and also small cell lung cancer as well as squamous cell cancer of the lung status post right lower lobectomy postop course complicated by chylothorax for the Pleurx catheter has been placed also with a history of PE, patient presented to the hospital with increasing shortness of breath and hypoxemia CT with evidence of extensive infiltrate right lower lobe and loculated effusion. On today's evaluation that is 06/30/2022, patient continues to be afebrile, the patient is breathing slightly comfortably and is down to 65 % FiO2, the patient did have a dry hacking cough , with occasional sputum, no nausea no vomiting no abdominal pain or diarrhea Objective - Vital Signs Vital signs: Vital Signs Temp 97 F L 06/30/22 00:00 Pulse 96 06/30/22 11:00 Resp 27 H 06/30/22 11:00 BP 111/75 06/30/22 11:00 Pulse Ox 94 L 06/30/22 11:00 FiO2 70 06/30/22 11:00 Intake & Output 06/29/22 06/30/22 06/30/22 18:59 06:59 18:59 Intake Total 1215 1409 487 Output Total 690 750 750 Balance 525 659 -263 Weight 77.2 kg Intake: IV 70 100 20 .9NS 40 100 20 Sodium Chloride 0.9% 1, 30 000 ml @ 50 mls/hr IV . Q20H [facility] Rx#:[id number] Intake, IV Titration 1045 1009 467 Amount Anidulafungin 200 mg In 252 200 Sodium Chloride 0.9% 200 ml @ 84 mls/hr IVPB ONCE ONE Rx#:[id number] Piperacillin-Tazobactam 3 125 175 100 .375 gm In Sodium Chloride 0.9% 100 ml @ 25 mls/hr IVPB Q8H [facility] Rx#: [id number] Vancomycin 1,500 mg In 668 834 167 Sodium Chloride 0.9% 500 ml 500 ml @ 167 mls/hr IVPB Q8H [facility] Rx#: [id number] Oral 100 300 Output: Urine 690 750 750 Other: Voiding Method Urinal Urinal # Voids 1 # Bowel Movements 1 - Exam GENERAL DESCRIPTION: A middle-age male up in the chair in no distress RESPIRATORY SYSTEM: Unlabored breathing , coarse breath sounds bilaterally HEART: S1 S2 regular rate and rhythm , ABDOMEN: Soft , no tenderness EXTREMITIES: No edema feet - Labs CBC & Chem 7: 06/30/22 10:50 06/30/22 10:50 Labs: Abnormal Lab Results - Last 24 Hours (Table) 06/29/22 06/29/22 06/30/22 Range/Units 16:46 20:22 06:36 POC Glucose (mg/dL) 159 H 196 H 161 H (70-110) mg/dL Microbiology - Last 24 Hours (Table) 06/26/22 13:25 Blood Culture - Preliminary Blood No Growth after 72 hours 06/26/22 13:25 Blood Culture - Preliminary Blood No Growth after 72 hours 06/27/22 16:37 Gram Stain - Final Sputum Sputum Culture - Final Assessment and Plan (1) Pneumonia Current Visit: Yes Status: Acute Code(s): J18.9 - PNEUMONIA, UNSPECIFIED ORGANISM SNOMED Code(s): 575655995 Plan: 1patient presented to hospital with increasing shortness of breath which is likely multifactorial in this patient who do have a history of emphysema also with a history of lung cancer now with evidence of right-sided loculated fluid concerning for possible empyema and has been in and out of the hospital we will need to cover for resistant gram-positive as well as gram-negative. 2we will try to obtain sputum for Gram stain and culture , the patient pro calcitonin came back as 0.06 which is normal 3patient is currently covered with vancomycin Zosyn, Levaquin and Eraxis, kidney function need to monitor closely which is stable at this point Time with Patient: Less than 30
[2022-06-30] MEDS: LORazepam 0.5 MG TAB PO PRN (23:17)
--- NOTE | 2022-07-01 00:55 | PN ---
PROGRESS NOTE DATE OF SERVICE: 06/30/2022 SUBJECTIVE: This is a 62-year-old gentleman, who was admitted with COPD acute exacerbation as well as possible acute pneumonia, possibly is on Airvo at this time. The patient is feeling slightly comfortable. The most recent chest x-ray was reviewed personally by me, showed persistent opacities bilaterally, right more than the left. PAST MEDICAL HISTORY: Reviewed. REVIEW OF SYSTEMS: A 14-point review of systems is negative except as mentioned earlier. CURRENT MEDICATIONS: Reviewed include DuoNeb. Dose and rest of medication noted. PHYSICAL EXAMINATION: VITAL SIGNS: Pulse is 100, blood pressure 91/60, respirations 23. CHEST: Bilateral scattered rhonchi and crackles. ABDOMEN: Soft. CARDIOVASCULAR: S1, S2 normal. NERVOUS SYSTEM: Nonfocal. LABORATORY DATA: Reviewed. ASSESSMENT: 1. Chronic obstructive pulmonary disease acute exacerbation with possible right lower lobe pneumonia, possibly gram-negative with hospital-acquired pneumonia and acute hypoxic respiratory failure on Airvo. 2. History of lung cancer and lobectomy. 3. Hypertension. 4. Hyperlipidemia. 5. Coronary artery disease. 6. Multiple medical issues. RECOMMENDATIONS: Recommend to continue current management and symptomatic treatment. Continue with empiric antibiotics and antifungals. Continue the rest of medications. Prognosis guarded because of the multiple complex medical issues and further recommendations to follow. The patient is on Eliquis. MMODL / IJN: [id number] /
[2022-07-01] MEDS: PIPERACILLIN-TAZOBACTAM 3.375 GM in SODIUM CHLORIDE 0.9% 100 ML IVPB SCH ×3 (02:14→17:24)
[2022-07-01] MEDS: VANCOMYCIN 1,250 MG in SODIUM CHLORIDE 0.9% 250 ML IVPB SCH ×3 (03:04→18:39)
[2022-07-01 04:13] LABS: Anisocytosis Marked; Basophils % (A) 0 %; Eosinophils % (A) 0 %; HGB 8.9 gm/dL (13.0-17.5); Hypochromasia Moderate; Lymphocytes # (A) 0.6 k/uL (1.0-4.8); Lymphocytes % (A) 4 %; MCH 29.2 pg (25.0-35.0); MCHC 31.8 g/dL (31.0-37.0); MCV 91.8 fL (80.0-100.0); Macrocytosis Moderate; Mean Platelet Volume 8.3; Microcytosis Slight; Monocytes # (A) 0.7 k/uL (0-1.0); Monocytes % (A) 5 %; Neutrophils # (A) 12.5 k/uL (1.3-7.7); Neutrophils % (A) 91 %; Platelet Count 254 k/uL (150-450); Poikilocytosis Moderate; RBC 3.05 m/uL (4.30-5.90); WBC 13.8 k/uL (3.8-10.6)
[2022-07-01 04:21] LABS: RDW 25.9 % (11.5-15.5)
[2022-07-01 04:45] LABS: African American GFR (CKD) >90 (>60 ml/min/1.73 sqM); Anion Gap 4 mmol/L; Blood Urea Nitrogen 24 mg/dL (9-20); Carbon Dioxide 30 mmol/L (22-30); Chloride 100 mmol/L (98-107); Glucose 132 mg/dL (74-99); Non-African American GFR(CKD) >90 (>60 ml/min/1.73 sqM); Potassium 3.6 mmol/L (3.5-5.1); Sodium 134 mmol/L (137-145)
[2022-07-01] MEDS ORDERED: POTASSIUM CHLORIDE ER 20 MEQ TAB.ER PO SCH (06:00)
[2022-07-01] MEDS: methylPREDNISolone SOD SUCCI 125 MG/2 ML VIAL IV SCH ×4 (06:03→23:25)
[2022-07-01 07:04] LABS: Glucose,Whole Blood 136 mg/dL (70-110)
[2022-07-01] MEDS: PANTOPRAZOLE 40 MG TABLET PO SCH (07:06)
[2022-07-01] MEDS: INSULIN ASPART (NovoLOG) 100 UNIT/ML VIAL SQ SCH ×4 (07:06→20:08)
--- NOTE | 2022-07-01 07:16 | XR ---
EXAMINATION TYPE: XR chest 1V portable DATE OF EXAM: 07/01/2022 6:05 AM COMPARISON: Chest radiographs from 06/30/2022 TECHNIQUE: XR chest 1V portable Portable AP radiograph of the chest. CLINICAL INDICATION:Male, 62 years old with history of Assess lungs; FINDINGS: Lungs/Pleura: Blunting of the right costophrenic angle redemonstrated. Reticular-nodular and airspace infiltrates persist bilaterally with right greater than left. No pneumothorax. Right apical pleural thickening. Pulmonary vascularity: Unremarkable. Heart/mediastinum: Cardiomediastinal silhouette is unremarkable. Musculoskeletal: No acute osseous pathology. IMPRESSION: Overall unchanged examination with similar multifocal airspace opacities and small right pleural effu varun.
[2022-07-01] MEDS: FORMOTEROL FUMARATE 20 MCG/2 ML NEBU INHALATION SCH ×2 (07:31→19:45)
[2022-07-01] MEDS: IPRATROPIUM-ALBUTEROL 3 ML NEB INHALATION SCH ×4 (07:31→19:45)
[2022-07-01] MEDS: BUDESONIDE 1 MG/2 ML NEBU INHALATION SCH ×2 (07:31→19:44)
[2022-07-01] MEDS: MULTIVITAMINS, THERA 1 EACH TAB PO SCH (08:44)
[2022-07-01] MEDS: METOPROLOL TARTRATE 12.5 MG TAB PO SCH ×2 (08:45→20:07)
[2022-07-01] MEDS: APIXABAN 5 MG TAB PO SCH ×2 (08:45→20:07)
[2022-07-01] MEDS: LEVOFLOXACIN 750 MG TAB PO SCH (08:45)
[2022-07-01] MEDS: FUROSEMIDE 10 MG/ML 2 ML VIAL IV SCH ×2 (08:46→20:08)
[2022-07-01] MEDS ORDERED: RX INFO: IV CONTRAST WAS GIVEN 1 EACH MISC MISCELLANE PRN (09:22)
--- NOTE | 2022-07-01 09:23 | P.PN ---
Subjective Progress Note Date: 07/01/22 A 62-year-old male patient with severe bullous emphysema, a chronic smoker is more than [id number] smoking history. 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 Postop course was complicated by development of chylothorax for which a Pleurx catheter was inserted and ultimately this was removed. His postop course was also complicated by development of pulmonary embolism and the patient was treated with anticoagulants and the patient continues to be on anti-coagulation with Eliquis. PET/CT that was done on 03/18/2022 showed progression of his disease with increase in the size and the metabolic activity of the mediastinal mass/lymphadenopathy. Based on that, the patient was started on treatment and the patient was given systemic chemotherapy with a combination of carboplatinum and [employer]-16. He also completed radiation therapy. Since then, the patient's health has been in generally getting worse. He was hospitalized back in early June with worsening shortness of breath. At that time, he was having issues related to chemotherapy toxicity with pancytopenia. He was quite leukopenic and he was also anemic. His platelet count also dropped. During his hospital stay, the patient gradually improved and he was ultimately discharged home on oxygen. During his hospital stay, he also had a transient ischemic attack with some left-sided weakness. And neuro workup was done including a CT angiogram of the brain that showed no acute abnormalities. The patient ultimately recovered and he was started on aspirate 1 mg by mouth daily. Anti-coagulation was resumed. During this current hospitalization admission, the patient noticed that he was getting more hypoxic. Even with limited amount of activity, his pulse ox was dropping and his oxygen requirements gradually we will going up and he was using 5 L oxygen by nasal cannula. He decided to come into the hospital because of worsening shortness of breath. In the emergency, the patient was found to be quite short of breath. He had minimal amount of sputum production. No fever or chills. No reported chest pain. He was quite dyspneic. No altered mentation. Immediately, a CT angiogram was done and this rules out the possibility of pulmonary embolism. There was new areas of infiltration of the right lower lobe compared to the previous CAT scan and there was also tumor encasement of the right pulmonary artery on the posterior wall. There was also tumor encasement of the right lower lobe pulmonary vein and there was bilateral enlarged lymph nodes at the level of the abdirizak. The mass and the lymphadenopathy appears to have increased in size compared to the earlier examination. This is based on the radiologist's report. Patient is currently on high flow oxygen at 10 L in addition to a nonrebreather facemask. His current pulse ox 100%. WBC count is at 8 with a hemoglobin 9.2 and a platelet count of 188. Normal coagulation profile. D-dimer is at 1.27. Influenza screen, Covid 19 screen and RSV were all negative. He was started on IV Solu-Medrol. Is on DuoNeb about treatments [id number]. He was also started on IV cefepime and vancomycin is to be added. No major swelling in the lower extremities bilaterally. Today's evaluation of 06/28/2022, the patient is currently in the intensive care unit currently on high flow oxygen at 60 L with an FiO2 of 90%. He seems a more comfortable compared to yesterday. Breathing is less labored and his pulse ox is around 96-98%. Chest x-ray still showing bilateral pulmonary infiltrates most on the right lung and there is some infiltration of the left. Based on his immunosuppression frequent hospitalizations, the patient was started on a combination of cefepime and vancomycin. Currently is afebrile. He is hemodynamically stable. Cardiac rhythm is sinus. His echoes at 15.7 with a hemoglobin of 8.1 and a platelet count of 189. Sodium is at 139 with a potassium level of 3.9. BUN is at 70 with a creatinine of 0.5. Pro-calcitonin level is still pending. LFTs are mildly elevated with an AST of 61, ALT of 81, alkaline phosphatase of 92. His albumin level is at 2.7. No major swelling in lower extremities. Remains on anticoagulants with Eliquis. Remains on bronchodilators. Remains on IV Solu-Medrol 60 mg every 6 hours 06/29/2022, the patient is being seen for a follow-up. Remains on high flow oxygen with 60 L with an FiO2 of 80%. Chest x-ray findings of essentially unchanged. Bilateral pulmonary infiltrates worse on the right and the patient also has a chronic right-sided pleural effusion. In terms of antibiotic coverage, he is on a combination of cefepime and vancomycin for now. His pro calcitonin level was 0.06. He remains on bronchodilators. He remains on steroids. He is using the incentive spirometer and falling approximately 2000. In terms of his white count, he is white count is at 12.5 with a hemoglobin 8.3 and a platelet count of 213. Sodium is at 135, potassium is 4.7, BUN 19 and a creatinine of 0.6. Cultures are all negative including sputum and blood. His viral screen was also negative. His breathing is still labored. He desaturates upon talking. Nevertheless, one breathing through his nose, is able to maintain a saturation above 90%. His current pulse ox is around 93%. No significant tachycardia. Mild tachypnea. He is not using it is a muscle breathing. He is tolerating his diet for now. Extreme 2022, the patient is on high flow oxygen at 5 L with an FiO2 of 70%. Remains on broad-spectrum antibiotic and antifungal agents. He is currently on a combination of Zosyn, vancomycin, Levaquin and Eraxis. No positive cultures. Chest x-ray findings of essentially unchanged. The pro-calcitonin level was low. No blood work from today. The blood work from yesterday was noted. He is supposed to have a CBC and a basic metabolic profile. His speech is improved. Is able to speak longer sentences. His pulse ox is around 91-92% on the above-mentioned settings. He remains on IV steroids. Fluid balance has been in the order of 930 mL negative. The patient is tolerating diet. No aspiration. Legionella urine antigen came back negative. 07/01/2022, the patient remains on high flow oxygen at 60 L an FiO2 of 60%. He desaturates rather easily. Chest x-ray findings of essentially unchanged. Clinically unchanged and the patient is not showing any significant progress over the past few days. Meanwhile, he is on a broad-spectrum antibiotic coverage and the patient is currently on IV Zosyn, IV vancomycin, IV Eraxis, and by mouth Levaquin. He is afebrile. He is hemodynamically stable. His WBC count of 15.8 with a hemoglobin of 8.9. BUN is at 24 with a creatinine of 0.7 and a sodium level is at 134. Mental status is adequate. Moving all 4 extremities. Using the senna spirometer. Objective - Vital Signs Vital signs: Vital Signs Temp 96.6 F L 07/01/22 08:00 Pulse 96 07/01/22 09:00 Resp 24 07/01/22 09:00 BP 123/83 07/01/22 09:00 Pulse Ox 92 L 07/01/22 09:00 FiO2 60 07/01/22 08:00 Intake & Output 06/30/22 07/01/22 07/01/22 18:59 06:59 18:59 Intake Total 961 690 230 Output Total 1275 2750 200 Balance -314 -2060 30 Weight 73.7 kg Intake: IV 60 690 30 .9NS 60 90 30 Piperacillin-Tazobactam 3 100 .375 gm In Sodium Chloride 0.9% 100 ml @ 25 mls/hr IVPB Q8H [facility] Rx#: [id number] Vancomycin 1,250 mg In 500 Sodium Chloride 0.9% 250 ml @ 125 mls/hr IVPB Q8H [facility] Rx#:[id number] Intake, IV Titration 901 Amount Anidulafungin 200 mg In 200 Sodium Chloride 0.9% 200 ml @ 84 mls/hr IVPB ONCE ONE Rx#:[id number] Piperacillin-Tazobactam 3 200 .375 gm In Sodium Chloride 0.9% 100 ml @ 25 mls/hr IVPB Q8H [facility] Rx#: [id number] Vancomycin 1,500 mg In 501 Sodium Chloride 0.9% 500 ml 500 ml @ 167 mls/hr IVPB Q8H [facility] Rx#: [id number] Oral 200 Output: Urine 1275 2750 200 Other: Voiding Method Urinal Urinal Urinal # Voids 1 # Bowel Movements 1 - Exam General Appearance no diaphoresis, no respiratory distress, speech not interrupted by breaths, no dyspnea, no pallor, not cachectic, well nourished, appears well, the patient is currently on high flow oxygen with 60 L an FiO2 of 60% , seems to much more comfortable compared to yesterday in terms of his b reathing. Not using accessory muscles of breathing. He had a full breakfast this morning HEENT no pursed lip breathing, no jugular venous distention, no mucous membrane cyanosis, no perioral cyanosis, mallampati classification: class 1 Chest no barrel chest, no retractions, no sternocleidomastoid muscle contractions, no supraclavicular retractions, no intercostal retractions, no prolonged expiratory wheezing, no decreased air movement, no rhonchi, no hyperinflation, (normal) adventitious sounds: rales / crackles: bilaterally: midlung gleason, decreased air movement Heart no right ventricular heave, no distant heart sounds, no s3 gallop, (normal) jugular vein: jugular venous distention: by 0cm, (normal) jugular vein GI bowel sounds: Abdominal exam revealed normal bowel sounds. The abdomen was soft, non-tender, and without masses, organomegaly, or appreciable enlargement of the abdominal aorta. Extremities no cyanosis, no clubbing, no edema Neurologic no decreased mental status, no somnolence, no confusion Assisstive Devices: ambulates with no assitive devices Gait and Mobility: gait WNL, full weight bearing Examination of the skin revealed no evidence of significant rashes, suspicious appearing nevi or other concerning lesions. - Labs CBC & Chem 7: 07/01/22 03:35 07/01/22 03:35 Labs: Abnormal Lab Results - Last 24 Hours (Table) 06/30/22 06/30/22 06/30/22 Range/Units 10:50 10:50 11:41 WBC 14.5 H (3.8-10.6) k/uL RBC 3.12 L (4.30-5.90) m/uL Hgb 9.2 L (13.0-17.5) gm/dL Hct 28.8 L (39.0-53.0) % RDW 25.5 H (11.5-15.5) % Neutrophils # 13.3 H (1.3-7.7) k/uL Lymphocytes # 0.4 L (1.0-4.8) k/uL Sodium 135 L (137-145) mmol/L BUN (9-20) mg/dL Creatinine 0.57 L (0.66-1.25) mg/dL Glucose 142 H (74-99) mg/dL POC Glucose (mg/dL) 177 H (70-110) mg/dL Calcium 7.9 L (8.4-10.2) mg/dL 06/30/22 06/30/22 07/01/22 Range/Units 16:49 20:43 03:35 WBC (3.8-10.6) k/uL RBC (4.30-5.90) m/uL Hgb (13.0-17.5) gm/dL Hct (39.0-53.0) % RDW (11.5-15.5) % Neutrophils # (1.3-7.7) k/uL Lymphocytes # (1.0-4.8) k/uL Sodium 134 L (137-145) mmol/L BUN 24 H (9-20) mg/dL Creatinine (0.66-1.25) mg/dL Glucose 132 H (74-99) mg/dL POC Glucose (mg/dL) 134 H 149 H (70-110) mg/dL Calcium 8.0 L (8.4-10.2) mg/dL 07/01/22 07/01/22 Range/Units 03:35 07:02 WBC 13.8 H (3.8-10.6) k/uL RBC 3.05 L (4.30-5.90) m/uL Hgb 8.9 L (13.0-17.5) gm/dL Hct 28.0 L (39.0-53.0) % RDW 25.9 H (11.5-15.5) % Neutrophils # 12.5 H (1.3-7.7) k/uL Lymphocytes # 0.6 L (1.0-4.8) k/uL Sodium (137-145) mmol/L BUN (9-20) mg/dL Creatinine (0.66-1.25) mg/dL Glucose (74-99) mg/dL POC Glucose (mg/dL) 136 H (70-110) mg/dL Calcium (8.4-10.2) mg/dL Microbiology - Last 24 Hours (Table) 06/26/22 13:25 Blood Culture - Preliminary Blood No Growth after 96 hours 06/26/22 13:25 Blood Culture - Preliminary Blood No Growth after 96 hours Assessment and Plan Plan: Acute right lung pneumonia. Noted the patient is post right lobectomy involving the right lower lobe. There is a new area of consolidation in the right lung base which was absent on previous evaluation. Rule out a hospital-acquired pn eumonia. At same time, the patient is a chronic right-sided pleural effusion, unchanged compared to the previous CAT scan. Chest x-ray from today is showing stable bilateral pulmonary infiltrates. The patient remains on broad-spectrum antibiotics for now. Limited improvement in oxygenation over the past 24 hours. Currently is on 60 L with an FiO2 of 60%. I'm going to suggest repeating a CAT scan of the chest with contrast of the patient is not showing any significant improvement. This may be needed to explain his ongoing hypoxemia. He remains on broad-spectrum antibiotics for now. Acute hypoxic respiratory failure secondary to above. No evidence of any pulmonary embolism. Rule out an early ARDS Acute on chronic shortness of breath secondary to above Advanced COPD with extensive bullous changes in the upper lobes maintain on Trelegy Ellipta on outpatient basis Chronic hypoxic respiratory failure maintained on oxygen at 2 L/m nasal cannula Squamous cell carcinoma of the lung, T3 N0 M0 and the patient has undergone previous right lower lobe resection Small cell lung cancer with positive subcarinal lymph nodes and the patient is completing chemotherapy and radiation therapy History of pulmonary embolism. The patient bilateral multilobar pulmonary embolism and he was receiving and the coagulation with Eliquis on outpatient basis. This pulmonary embolism occurred following his thoracotomy and right lower lobe resection and the patient was being treated with anticoagulants. Acute leukopenia, chemotherapy-induced and the patient received Neulasta on an outpatient basis recovered and the white cell count has improved Acute thrombocytopenia, chemotherapy-induced, improved Acute anemia, chemotherapy-induced. Hemoglobin is 8.9 Generalized weakness secondary to above Difficulty swallowing likely secondary to radiation to the chest, rule out a component of radiation esophagitis History of chylothorax and the patient has undergone previous Pleurx catheter insertion. Currently the catheter is out and the patient has some loculated stable right-sided pleural effusion History of coronary artery disease with previous stenting of the LAD, currently stable Plan The patient was placed on Airvo 60 L with an FiO2 of 60%. We'll gradually wean We'll continue same antibiotic coverage Check Legionella urine antigen was checked and this was negative Continue bronchodilators Continue steroids, currently on 60 mg of IV Solu-Medrol every 6 hours. Lasix 20 mg IV every 12 hours Continue to coagulation with Eliquis IV to KVO. CAT scan of the chest was reviewed, I'm going to repeat a CAT scan and based on the ongoing hypoxemia and failure to recover with broad-spectrum antibiotics Blood cultures are negative Check pro calcitonin level, and the levels are low. We'll continue to follow Condition is critical and prognosis poor based above-mentioned comorbidities.
[2022-07-01] MEDS: ANIDULAFUNGIN 100 MG in SODIUM CHLORIDE 0.9% 100 ML IVPB SCH (09:46)
[2022-07-01 11:22] LABS: Glucose,Whole Blood 136 mg/dL (70-110)
--- NOTE | 2022-07-01 12:05 | CT ---
EXAMINATION TYPE: CT chest w con DATE OF EXAM: 07/01/2022 COMPARISON: 06/26/2022, 06/08/2022, 03/18/2022 HISTORY: 62-year-old male Persistent bilateral infiltrates TECHNIQUE: Contiguous axial scanning of the chest after the administration of 100 mL of Isovue 300. Coronal/sagittal reconstructions performed. CT DLP: 327.5mGycm. Automatic exposure control utilized for a dose reduction. FINDINGS: Heart normal size without pericardial effusion. No reflux of contrast into the hepatic veins. LAD cor onary artery calcifications are present. Borderline ectatic aortic root at 3.5 cm and ascending aorta 2.6 cm. Moderate atherosclerotic arch ca lcifications with a bovine configuration to the aortic arch. Some prevascular space lymph nodes show further decrease in size now measuring 8 mm versus 1.0 cm, pr eviously. Precarinal node measures 1.1 cm versus 1.2 cm, previously. Left hilar node measures 2.5 cm versus 3.1 cm, previously. No progressive mediastinal or hilar lymphadenopathy seen. Mildly enlarged caliber to the main right and left pulmonary arteries measuring up to 2.6 cm suggesti ng underlying pulmonary artery hypertension. Satisfactory opacification of the pulmonary arterial sys tem with mild breathing motion artifact limiting the evaluation. No definite new pulmonary embolus is seen. Soft tissue density along the posterior margin of the right lower lobar pulmonary artery branch with poor opacification of many subsequent right lower lobe smaller arterial branches is similar. The lume n of the right lower lobar artery remains mildly narrowed and the lumen of many basilar right lower l obe segmental and more distal branches remains nonopacified. Ongoing reticular and groundglass changes throughout the mid and lower lungs with advanced background emphysematous change. The dependent consolidation within the right midlung persists but has consider ably improved, for example, axial image 27. Chronic thick-walled pleural fluid collection posterior right base measuring 10.6 x 3.6 cm, unchanged . Visualized upper abdomen shows no gross abnormality. Bones: Mild degenerative disc disease mid to lower thoracic spine. Osteopenia. IMPRESSION: 1. COPD with advanced emphysema and pulmonary arterial hypertension. 2. Redemonstrated soft tissue thickening posterior wall of the right lower lobar pulmonary artery bra nch and resulting mild luminal narrowing. Subsequent basilar right lower lobar pulmonary arterial bra nches remain nonopacified. We favor chronic thromboemboli rather than tumor encasement as reported on 06/26/2022; overall appearance is unchanged. No new pulmonary embolus is seen. 3. Chronic thick-walled pleural fluid collection measuring 10.6 x 3.6 cm at the posterior right base. There is residual but improving air space disease posterior right midlung suggesting improving pneum onia. 4. However, the other groundglass changes throughout the lower lungs appears similar. Query component of underlying fibrosis/UIP. 5. Some of the mediastinal and left hilar nodes show decreasing size compared to 06/26/2022.
[2022-07-01 12:43] VITALS: BMI 23.3
[2022-07-01 16:18] LABS: Glucose,Whole Blood 149 mg/dL (70-110)
[2022-07-01 20:07] LABS: Glucose,Whole Blood 188 mg/dL (70-110)
[2022-07-01] MEDS: ATORVASTATIN 80 MG TAB PO SCH (20:07)
--- NOTE | 2022-07-01 22:56 | P.PN ---
Subjective Progress Note Date: 07/01/22 Principal diagnosis: Pneumonia Patient is a 62-year-old male with a past medical history significant for emphysema chronic smoker and also small cell lung cancer as well as squamous cell cancer of the lung status post right lower lobectomy postop course complicated by chylothorax for the Pleurx catheter has been placed also with a history of PE, patient presented to the hospital with increasing shortness of breath and hypoxemia CT with evidence of extensive infiltrate right lower lobe and loculated effusion. On today's evaluation that is 07/01/2022, patient remains to be afebrile, the patient is breathing slightly comfortably and is down to 60 % FiO2, the patient denies any worsening cough and no sputum production, no nausea no vomiting or diarrhea Objective - Vital Signs Vital signs: Vital Signs Temp 96.7 F L 07/01/22 12:00 Pulse 99 07/01/22 12:00 Resp 28 H 07/01/22 12:00 BP 104/71 07/01/22 12:00 Pulse Ox 93 L 07/01/22 12:00 FiO2 60 07/01/22 12:00 Intake & Output 06/30/22 07/01/22 07/01/22 18:59 06:59 18:59 Intake Total 961 690 585 Output Total 1275 2750 1600 Balance -314 -4242 -1018 Weight 73.7 kg 73.7 kg Intake: IV 60 690 285 .9NS 60 90 60 Piperacillin-Tazobactam 3 100 100 .375 gm In Sodium Chloride 0.9% 100 ml @ 25 mls/hr IVPB Q8H [facility] Rx#: [id number] Vancomycin 1,250 mg In 500 125 Sodium Chloride 0.9% 250 ml @ 125 mls/hr IVPB Q8H [facility] Rx#:[id number] Intake, IV Titration 901 100 Amount Anidulafungin 100 mg In 100 Sodium Chloride 0.9% 100 ml @ 84 mls/hr IVPB DAILY @1000 [facility] Rx#:[id number] Anidulafungin 200 mg In 200 Sodium Chloride 0.9% 200 ml @ 84 mls/hr IVPB ONCE ONE Rx#:[id number] Piperacillin-Tazobactam 3 200 .375 gm In Sodium Chloride 0.9% 100 ml @ 25 mls/hr IVPB Q8H [facility] Rx#: [id number] Vancomycin 1,500 mg In 501 Sodium Chloride 0.9% 500 ml 500 ml @ 167 mls/hr IVPB Q8H [facility] Rx#: [id number] Oral 200 Output: Urine 1275 2750 1600 Other: Voiding Method Urinal Urinal Urinal # Voids 1 # Bowel Movements 1 - Exam GENERAL DESCRIPTION: A middle-age male up in the chair in no distress RESPIRATORY SYSTEM: Unlabored breathing , coarse breath sounds bilaterally HEART: S1 S2 regular rate and rhythm , ABDOMEN: Soft , no tenderness EXTREMITIES: No edema feet - Labs CBC & Chem 7: 07/01/22 03:35 07/01/22 03:35 Labs: Abnormal Lab Results - Last 24 Hours (Table) 06/30/22 06/30/22 06/30/22 Range/Units 10:50 10:50 16:49 WBC 14.5 H (3.8-10.6) k/uL RBC 3.12 L (4.30-5.90) m/uL Hgb 9.2 L (13.0-17.5) gm/dL Hct 28.8 L (39.0-53.0) % RDW 25.5 H (11.5-15.5) % Neutrophils # 13.3 H (1.3-7.7) k/uL Lymphocytes # 0.4 L (1.0-4.8) k/uL Sodium 135 L (137-145) mmol/L BUN (9-20) mg/dL Creatinine 0.57 L (0.66-1.25) mg/dL Glucose 142 H (74-99) mg/dL POC Glucose (mg/dL) 134 H (70-110) mg/dL Calcium 7.9 L (8.4-10.2) mg/dL 06/30/22 07/01/22 07/01/22 Range/Units 20:43 03:35 03:35 WBC 13.8 H (3.8-10.6) k/uL RBC 3.05 L (4.30-5.90) m/uL Hgb 8.9 L (13.0-17.5) gm/dL Hct 28.0 L (39.0-53.0) % RDW 25.9 H (11.5-15.5) % Neutrophils # 12.5 H (1.3-7.7) k/uL Lymphocytes # 0.6 L (1.0-4.8) k/uL Sodium 134 L (137-145) mmol/L BUN 24 H (9-20) mg/dL Creatinine (0.66-1.25) mg/dL Glucose 132 H (74-99) mg/dL POC Glucose (mg/dL) 149 H (70-110) mg/dL Calcium 8.0 L (8.4-10.2) mg/dL 07/01/22 07/01/22 Range/Units 07:02 11:20 WBC (3.8-10.6) k/uL RBC (4.30-5.90) m/uL Hgb (13.0-17.5) gm/dL Hct (39.0-53.0) % RDW (11.5-15.5) % Neutrophils # (1.3-7.7) k/uL Lymphocytes # (1.0-4.8) k/uL Sodium (137-145) mmol/L BUN (9-20) mg/dL Creatinine (0.66-1.25) mg/dL Glucose (74-99) mg/dL POC Glucose (mg/dL) 136 H 136 H (70-110) mg/dL Calcium (8.4-10.2) mg/dL Microbiology - Last 24 Hours (Table) 06/26/22 13:25 Blood Culture - Preliminary Blood No Growth after 96 hours 06/26/22 13:25 Blood Culture - Preliminary Blood No Growth after 96 hours Assessment and Plan (1) Pneumonia Current Visit: Yes Status: Acute Code(s): J18.9 - PNEUMONIA, UNSPECIFIED ORGANISM SNOMED Code(s): 481222287 Plan: 1patient presented to hospital with increasing shortness of breath which is likely multifactorial in this patient who do have a history of emphysema also with a history of lung cancer now with evidence of right-sided loculated fluid concerning for possible empyema and has been in and out of the hospital we will need to cover for resistant gram-positive as well as gram-negative. 2we will try to obtain sputum for Gram stain and culture , the patient pro calcitonin came back as 0.06 which is normal 3patient seemed to have shown clinical improvement and is currently being treated with vancomycin Zosyn, Levaquin and Eraxis, kidney function will be monitored closely which is stable at 0.72 Time with Patient: Less than 30
[2022-07-01] MEDS: LORazepam 0.5 MG TAB PO PRN (23:30)
--- NOTE | 2022-07-01 23:50 | PN ---
PROGRESS NOTE DATE OF SERVICE: 07/01/2022 SUBJECTIVE: This is a 62-year-old gentleman, who was admitted with COPD acute exacerbation with possible right lower lobe pneumonia. He is still on AIRVO. A CT scan which was done today and reviewed personally by me showed COPD and multiple lung abnormalities also. The patient is on broad spectrum IV antibiotics. The patient is closely monitored in ICU. Multiple consultants are following the patient closely. The cultures are negative so far. PAST MEDICAL HISTORY: Reviewed. REVIEW OF SYSTEMS: A 14-point review of systems is negative except as mentioned earlier. MEDICATIONS: Reviewed include DuoNeb, dose and rest of medication noted. PHYSICAL EXAMINATION: VITAL SIGNS: Pulse is 99, blood pressure 104/70, respirations 35. HEENT: Conjunctivae normal. NECK: No JVD. CARDIOVASCULAR: S1, S2 muffled. RESPIRATIONS: Breath sounds diminished in the bases. Bilateral scattered rhonchi and crackles. Expiratory wheezing. ABDOMEN: Soft. LABORATORY DATA: WBC 13.6. Rest of the labs and CT reviewed personally by me. ASSESSMENT: 1. Chronic obstructive pulmonary disease acute exacerbation with possible right lower lobe pneumonia, possibly gram-negative with possible acute pneumonia with acute hypoxic respiratory failure, on AIRVO. 2. History of lung cancer and lobectomy, right. 3. Hypertension. 4. Hyperlipidemia. 5. History of coronary artery disease. 6. Multiple medical issues. RECOMMENDATIONS: Recommend to continue current management and symptomatic treatment. Try to wean the patient off AIRVO. Continue with bronchodilators, steroids, and empiric antibiotics. Cultures otherwise negative so far. See orders for further details. Further recommendations to follow. MMODL / IJN: [id number] /
[2022-07-02] MEDS: VANCOMYCIN 1,250 MG in SODIUM CHLORIDE 0.9% 250 ML IVPB SCH ×3 (02:01→19:29)
[2022-07-02] MEDS: PIPERACILLIN-TAZOBACTAM 3.375 GM in SODIUM CHLORIDE 0.9% 100 ML IVPB SCH ×3 (02:01→18:31)
[2022-07-02] MEDS: methylPREDNISolone SOD SUCCI 125 MG/2 ML VIAL IV SCH ×4 (05:12→23:19)
[2022-07-02 06:40] LABS: Glucose,Whole Blood 154 mg/dL (70-110)
--- NOTE | 2022-07-02 07:05 | XR ---
EXAMINATION TYPE: XR chest 1V portable DATE OF EXAM: 07/02/2022 HISTORY: Shortness of breath. COMPARISON: 07/01/2022 TECHNIQUE: Single view of the chest is submitted. FINDINGS: Demonstrated are scattered senescent parenchymal change. Persistent coarse infiltrates seen bilaterally greatest at the right lower lobe. Small effusion noted as well versus pleural thickening. The heart is stable. Hilar and mediastinal structures are within normal limits. Degenerative changes are seen of the dorsal spine. IMPRESSION: 1. Persistent coarse infiltrates seen bilaterally greatest at the right lower lobe. Small effusion n oted as well versus pleural thickening.
[2022-07-02] MEDS: PANTOPRAZOLE 40 MG TABLET PO SCH (07:12)
[2022-07-02] MEDS: INSULIN ASPART (NovoLOG) 100 UNIT/ML VIAL SQ SCH ×4 (07:12→20:14)
[2022-07-02] MEDS: BUDESONIDE 1 MG/2 ML NEBU INHALATION SCH ×2 (07:39→19:31)
[2022-07-02] MEDS: IPRATROPIUM-ALBUTEROL 3 ML NEB INHALATION SCH ×4 (07:39→19:31)
[2022-07-02] MEDS: FORMOTEROL FUMARATE 20 MCG/2 ML NEBU INHALATION SCH ×2 (07:39→19:41)
[2022-07-02] MEDS: LEVOFLOXACIN 750 MG TAB PO SCH (08:27)
[2022-07-02] MEDS: METOPROLOL TARTRATE 12.5 MG TAB PO SCH ×2 (08:27→20:14)
[2022-07-02] MEDS: MULTIVITAMINS, THERA 1 EACH TAB PO SCH (08:27)
[2022-07-02] MEDS: APIXABAN 5 MG TAB PO SCH ×2 (08:28→20:14)
[2022-07-02] MEDS: FUROSEMIDE 10 MG/ML 2 ML VIAL IV SCH (08:28)
--- NOTE | 2022-07-02 09:18 | P.PN ---
Subjective Progress Note Date: 07/02/22 A 62-year-old male patient with severe bullous emphysema, a chronic smoker is more than [id number] smoking history. 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 Postop course was complicated by development of chylothorax for which a Pleurx catheter was inserted and ultimately this was removed. His postop course was also complicated by development of pulmonary embolism and the patient was treated with anticoagulants and the patient continues to be on anti-coagulation with Eliquis. PET/CT that was done on 03/18/2022 showed progression of his disease with increase in the size and the metabolic activity of the mediastinal mass/lymphadenopathy. Based on that, the patient was started on treatment and the patient was given systemic chemotherapy with a combination of carboplatinum and HEEL SEAM [id number]. He also completed radiation therapy. Since then, the patient's health has been in generally getting worse. He was hospitalized back in early June with worsening shortness of breath. At that time, he was having issues related to chemotherapy toxicity with pancytopenia. He was quite leukopenic and he was also anemic. His platelet count also dropped. During his hospital stay, the patient gradually improved and he was ultimately discharged home on oxygen. During his hospital stay, he also had a transient ischemic attack with some left-sided weakness. And neuro workup was done including a CT angiogram of the brain that showed no acute abnormalities. The patient ultimately recovered and he was started on aspirate 1 mg by mouth daily. Anti-coagulation was resumed. During this current hospitalization admission, the patient noticed that he was getting more hypoxic. Even with limited amount of activity, his pulse ox was dropping and his oxygen requirements gradually we will going up and he was using 5 L oxygen by nasal cannula. He decided to come into the hospital because of worsening shortness of breath. In the emergency, the patient was found to be quite short of breath. He had minimal amount of sputum production. No fever or chills. No reported chest pain. He was quite dyspneic. No altered mentation. Immediately, a CT angiogram was done and this rules out the possibility of pulmonary embolism. There was new areas of infiltration of the right lower lobe compared to the previous CAT scan and there was also tumor encasement of the right pulmonary artery on the posterior wall. There was also tumor encasement of the right lower lobe pulmonary vein and there was bilateral enlarged lymph nodes at the level of the abdirizak. The mass and the lymphadenopathy appears to have increased in size compared to the earlier examination. This is based on the radiologist's report. Patient is currently on high flow oxygen at 10 L in addition to a nonrebreather facemask. His current pulse ox 100%. WBC count is at 8 with a hemoglobin 9.2 and a platelet count of 188. Normal coagulation profile. D-dimer is at 1.27. Influenza screen, Covid 19 screen and RSV were all negative. He was started on IV Solu-Medrol. Is on DuoNeb about treatments [id number]. He was also started on IV cefepime and vancomycin is to be added. No major swelling in the lower extremities bilaterally. Today's evaluation of 06/28/2022, the patient is currently in the intensive care unit currently on high flow oxygen at 60 L with an FiO2 of 90%. He seems a more comfortable compared to yesterday. Breathing is less labored and his pulse ox is around 96-98%. Chest x-ray still showing bilateral pulmonary infiltrates most on the right lung and there is some infiltration of the left. Based on his immunosuppression frequent hospitalizations, the patient was started on a combination of cefepime and vancomycin. Currently is afebrile. He is hemodynamically stable. Cardiac rhythm is sinus. His echoes at 15.7 with a hemoglobin of 8.1 and a platelet count of 189. Sodium is at 139 with a potassium level of 3.9. BUN is at 70 with a creatinine of 0.5. Pro-calcitonin level is still pending. LFTs are mildly elevated with an AST of 61, ALT of 81, alkaline phosphatase of 92. His albumin level is at 2.7. No major swelling in lower extremities. Remains on anticoagulants with Eliquis. Remains on bronchodilators. Remains on IV Solu-Medrol 60 mg every 6 hours 06/29/2022, the patient is being seen for a follow-up. Remains on high flow oxygen with 60 L with an FiO2 of 80%. Chest x-ray findings of essentially unchanged. Bilateral pulmonary infiltrates worse on the right and the patient also has a chronic right-sided pleural effusion. In terms of antibiotic coverage, he is on a combination of cefepime and vancomycin for now. His pro calcitonin level was 0.06. He remains on bronchodilators. He remains on steroids. He is using the incentive spirometer and falling approximately 2000. In terms of his white count, he is white count is at 12.5 with a hemoglobin 8.3 and a platelet count of 213. Sodium is at 135, potassium is 4.7, BUN 19 and a creatinine of 0.6. Cultures are all negative including sputum and blood. His viral screen was also negative. His breathing is still labored. He desaturates upon talking. Nevertheless, one breathing through his nose, is able to maintain a saturation above 90%. His current pulse ox is around 93%. No significant tachycardia. Mild tachypnea. He is not using it is a muscle breathing. He is tolerating his diet for now. Extreme 2022, the patient is on high flow oxygen at 5 L with an FiO2 of 70%. Remains on broad-spectrum antibiotic and antifungal agents. He is currently on a combination of Zosyn, vancomycin, Levaquin and Eraxis. No positive cultures. Chest x-ray findings of essentially unchanged. The pro-calcitonin level was low. No blood work from today. The blood work from yesterday was noted. He is supposed to have a CBC and a basic metabolic profile. His speech is improved. Is able to speak longer sentences. His pulse ox is around 91-92% on the above-mentioned settings. He remains on IV steroids. Fluid balance has been in the order of 930 mL negative. The patient is tolerating diet. No aspiration. Legionella urine antigen came back negative. 07/01/2022, the patient remains on high flow oxygen at 60 L an FiO2 of 60%. He desaturates rather easily. Chest x-ray findings of essentially unchanged. Clinically unchanged and the patient is not showing any significant progress over the past few days. Meanwhile, he is on a broad-spectrum antibiotic coverage and the patient is currently on IV Zosyn, IV vancomycin, IV Eraxis, and by mouth Levaquin. He is afebrile. He is hemodynamically stable. His WBC count of 15.8 with a hemoglobin of 8.9. BUN is at 24 with a creatinine of 0.7 and a sodium level is at 134. Mental status is adequate. Moving all 4 extremities. Using the senna spirometer. 07/02/2022, patient remains on high flow oxygen. He remains on 60 L with an FiO2 of 60%. Based on his ongoing issues with oxygen desaturation, I repeated his CAT scan of the chest. I reviewed the CAT scan and as expected the patient has advanced emphysema with diffuse COPD changes throughout the lung gleason bilaterally. There is also some narrowing in the pulmonary artery branches and this favored chronic thromboemboli involving the right lower lobe pulmonary artery branches. There is an area of large fluid collection which is chronic measuring 10 x 3.6 cm in size in the posterior right lung base. There is also residual but improving airspace disease in the right midlung suggestive of an improving pneumonia. There is also evidence of mediastinal lymphadenopathy consistent with his underlying history of small cell lung cancer. As such, there is some limited improvement in his pneumonia. There is also chronic thromboemboli involving the right lower lobe pulmonary artery branch. The patient continues to be on broad-spectrum antibiotics. He is currently receiving a combination of antibiotics including Eraxis, Zosyn, Levaquin and vancomycin. He remains on IV Solu-Medrol 60 mg every 6 hours. Cultures are all negative. In terms of his blood work, there are all pending from today. His vancomycin trough level is at 18. He is sitting up on a chair. His pulse ox is 88% on the current high flow settings. He desaturates easily. However he does recover. Mental status is adequate. His tolerating his diet. Objective - Vital Signs Vital signs: Vital Signs Temp 97.7 F 07/02/22 08:51 Pulse 92 07/02/22 08:51 Resp 24 07/02/22 08:51 BP 103/75 07/02/22 08:51 Pulse Ox 94 L 07/02/22 08:51 FiO2 60 07/02/22 07:39 Intake & Output 07/01/22 07/02/22 07/02/22 18:59 06:59 18:59 Intake Total 1320 720 230 Output Total 2200 2250 Balance -880 -1530 230 Weight 73.7 kg 70.5 kg Intake: IV 570 720 30 .9NS 120 120 30 Piperacillin-Tazobactam 3 200 100 .375 gm In Sodium Chloride 0.9% 100 ml @ 25 mls/hr IVPB Q8H [facility] Rx#: [id number] Vancomycin 1,250 mg In 250 500 Sodium Chloride 0.9% 250 ml @ 125 mls/hr IVPB Q8H [facility] Rx#:[id number] Intake, IV Titration 100 Amount Anidulafungin 100 mg In 100 Sodium Chloride 0.9% 100 ml @ 84 mls/hr IVPB DAILY @1000 [facility] Rx#:[id number] Oral 650 200 Output: Urine 2200 2250 Other: Voiding Method Urinal Urinal Urinal # Voids 1 1 # Bowel Movements 1 - Exam General Appearance no diaphoresis, no respiratory distress, speech not interrupted by breaths, no dyspnea, no pallor, not cachectic, well nourished, appears well, the patient is currently on high flow oxygen with 60 L an FiO2 of 60% , seems to much more comfortable compared to yesterday in terms of his breathing. Not using accessory muscles of breathing. He had a full breakfast this morning HEENT no pursed lip breathing, no jugular venous distention, no mucous membrane cyanosis, no perioral cyanosis, mallampati classification: class 1 Chest no barrel chest, no retractions, no sternocleidomastoid muscle contractions, no supraclavicular retractions, no intercostal retractions, no prolonged expiratory wheezing, no decreased air movement, no rhonchi, no hyperinflation, (normal) adventitious sounds: rales / crackles: bilaterally: midlung gleason, decreased air movement Heart no right ventricular heave, no distant heart sounds, no s3 gallop, (normal) jugular vein: jugular venous distention: by 0cm, (normal) jugular vein GI bowel sounds: Abdominal exam revealed normal bowel sounds. The abdomen was soft, non-tender, and without masses, organomegaly, or appreciable enlargement of the abdominal aorta. Extremities no cyanosis, no clubbing, no edema Neurologic no decreased mental status, no somnolence, no confusion Assisstive Devices: ambulates with no assitive devices Gait and Mobility: gait WNL, full weight bearing Examination of the skin revealed no evidence of significant rashes, suspicious appearing nevi or other concerning lesions. - Labs CBC & Chem 7: 07/01/22 03:35 07/01/22 03:35 Labs: Abnormal Lab Results - Last 24 Hours (Table) 07/01/22 07/01/22 07/01/22 Range/Units 11:20 16:15 20:04 POC Glucose (mg/dL) 136 H 149 H 188 H (70-110) mg/dL 07/02/22 Range/Units 06:38 POC Glucose (mg/dL) 154 H (70-110) mg/dL Microbiology - Last 24 Hours (Table) 06/26/22 13:25 Blood Culture - Preliminary Blood No Growth after 120 hours 06/26/22 13:25 Blood Culture - Preliminary Blood No Growth after 120 hours Assessment and Plan Plan: Acute right lung pneumonia. Noted the patient is post right lobectomy involving the right lower lobe. There is a new area of consolidation in the right lung base which was absent on previous evaluation. Rule out a hospital-acquired pneumonia. At same time, the patient is a chronic right-sided pleural effusion, unchanged compared to the previous CAT scan. Chest x-ray from today is showing stable bilateral pulmonary infiltrates. The patient remains on broad-spectrum antibiotics for now. Limited improvement in oxygenation over the past 24 hours. Currently is on 60 L with an FiO2 of 60%. The repeat CAT scan showed chronic Soma emboli in the right lower lobe pulmonary artery branch. The patient remains on anticoagulation. There is also improvement of the right mid lung pneumonia. A chronic right lower lobe pleural fluid/pocket related to previous chylothorax, unchanged measuring 10 x 3.6 cm in size. Acute hypoxic respiratory failure secondary to above. No evidence of any pulmonary embolism. Rule out an early ARDS Acute on chronic shortness of breath secondary to above Advanced COPD with extensive bullous changes in the upper lobes maintain on Trelegy Ellipta on outpatient basis Chronic hypoxic respiratory failure maintained on oxygen at 2 L/m nasal cannula Squamous cell carcinoma of the lung, T3 N0 M0 and the patient has undergone previous right lower lobe resection Small cell lung cancer with positive subcarinal lymph nodes and the patient is completing chemotherapy and radiation therapy History of pulmonary embolism. The patient bilateral multilobar pulmonary embolism and he was receiving and the coagulation with Eliquis on outpatient basis. This pulmonary embolism occurred following his thoracotomy and right lower lobe resection and the patient was being treated with anticoagulants. Acute leukopenia, chemotherapy-induced and the patient received Neulasta on an outpatient basis recovered and the white cell count has improved Acute thrombocytopenia, chemotherapy-induced, improved Acute anemia, chemotherapy-induced. Hemoglobin is 8.9 Generalized weakness secondary to above Difficulty swallowing likely secondary to radiation to the chest, rule out a component of radiation esophagitis History of chylothorax and the patient has undergone previous Pleurx catheter insertion. Currently the catheter is out and the patient has some loculated stable right-sided pleural effusion History of coronary artery disease with previous stenting of the LAD, currently stable Plan Based on the CAT scan results, no other interventions are suspected and we'll stay the course. We'll continue the same treatment until being the antibiotics, steroids and oxygen supplementation. The patient was placed on Airvo 60 L with an FiO2 of 60%. We'll gradually wean We'll continue same antibiotic coverage Check Legionella urine antigen was checked and this was negative Continue bronchodilators Continue steroids, currently on 60 mg of IV Solu-Medrol every 6 hours. Lasix 20 mg IV every 24 hours and we will going to reduce the Lasix dose as the patient has been in a negative fluid balance. Continue to coagulation with Eliquis IV to KVO. Blood cultures are negative Check pro calcitonin level, and the levels are low. We'll continue to follow Condition is critical and prognosis poor based above-mentioned comorbidities.
[2022-07-02] MEDS: ANIDULAFUNGIN 100 MG in SODIUM CHLORIDE 0.9% 100 ML IVPB SCH (09:55)
[2022-07-02] MEDS ORDERED: VANCOMYCIN TROUGH DUE 1 EACH MISC MISCELLANE ONE (10:00)
[2022-07-02 10:42] LABS: Anisocytosis Marked; Basophils % (A) 0 %; Eosinophils # (A) 0.1 k/uL (0-0.7); Eosinophils % (A) 1 %; HCT 33.6 % (39.0-53.0); HGB 10.4 gm/dL (13.0-17.5); Hypochromasia Marked; Lymphocytes # (A) 0.4 k/uL (1.0-4.8); Lymphocytes % (A) 2 %; MCH 29.9 pg (25.0-35.0); MCV 96.2 fL (80.0-100.0); Macrocytosis Marked; Mean Platelet Volume 7.2; Monocytes # (A) 0.8 k/uL (0-1.0); Monocytes % (A) 5 %; Neutrophils # (A) 13.4 k/uL (1.3-7.7); Neutrophils % (A) 91 %; Platelet Count 262 k/uL (150-450); Poikilocytosis Moderate; RBC 3.49 m/uL (4.30-5.90); WBC 14.7 k/uL (3.8-10.6)
[2022-07-02 10:45] LABS: RDW 26.5 % (11.5-15.5)
[2022-07-02 10:52] LABS: African American GFR (CKD) >90 (>60 ml/min/1.73 sqM); Anion Gap 5 mmol/L; Blood Urea Nitrogen 29 mg/dL (9-20); Calcium 7.9 mg/dL (8.4-10.2); Carbon Dioxide 27 mmol/L (22-30); Chloride 101 mmol/L (98-107); Glucose 182 mg/dL (74-99); Non-African American GFR(CKD) >90 (>60 ml/min/1.73 sqM); Sodium 133 mmol/L (137-145)
[2022-07-02 10:55] LABS: Potassium 3.9 mmol/L (3.5-5.1)
[2022-07-02 11:33] LABS: Glucose,Whole Blood 199 mg/dL (70-110)
[2022-07-02 16:31] LABS: Glucose,Whole Blood 158 mg/dL (70-110)
[2022-07-02] MEDS: MAG HYDROX/AL HYDROX/SIMETH 30 ML, LIDOCAINE VISCOUS 2% 30 ML, diphenhydrAMINE ELIXIR 7... PO SCH ×8 (16:51→21:17)
[2022-07-02 20:11] LABS: Glucose,Whole Blood 153 mg/dL (70-110)
[2022-07-02] MEDS: ATORVASTATIN 80 MG TAB PO SCH (20:14)
--- NOTE | 2022-07-02 20:41 | P.PN ---
Subjective Progress Note Date: 07/02/22 Principal diagnosis: Pneumonia Patient is a 62-year-old male with a past medical history significant for emphysema chronic smoker and also small cell lung cancer as well as squamous cell cancer of the lung status post right lower lobectomy postop course complicated by chylothorax for the Pleurx catheter has been placed also with a history of PE, patient presented to the hospital with increasing shortness of breath and hypoxemia CT with evidence of extensive infiltrate right lower lobe and loculated effusion. On today's evaluation that is 07/02/2022, patient continues to be afebrile, the patient is breathing slightly comfortably and FiO2 is currently at 60 %, the patient denies any worsening cough which is mostly dry in nature no nausea no vomiting no abdominal pain or diarrhea Objective - Vital Signs Vital signs: Vital Signs Temp 98 F 07/02/22 12:00 Pulse 108 H 07/02/22 12:00 Resp 30 H 07/02/22 12:00 BP 102/69 07/02/22 12:00 Pulse Ox 94 L 07/02/22 12:00 FiO2 60 07/02/22 12:00 Intake & Output 07/01/22 07/02/22 07/02/22 18:59 06:59 18:59 Intake Total 1320 720 560 Output Total 2200 2250 550 Balance -880 -1530 10 Weight 73.7 kg 70.5 kg Intake: IV 570 720 60 .9NS 120 120 60 Piperacillin-Tazobactam 3 200 100 .375 gm In Sodium Chloride 0.9% 100 ml @ 25 mls/hr IVPB Q8H [facility] Rx#: [id number] Vancomycin 1,250 mg In 250 500 Sodium Chloride 0.9% 250 ml @ 125 mls/hr IVPB Q8H [facility] Rx#:[id number] Intake, IV Titration 100 Amount Anidulafungin 100 mg In 100 Sodium Chloride 0.9% 100 ml @ 84 mls/hr IVPB DAILY @1000 [facility] Rx#:[id number] Oral 650 500 Output: Urine 2200 2250 550 Other: Voiding Method Urinal Urinal Urinal # Voids 1 1 # Bowel Movements 1 - Exam GENERAL DESCRIPTION: A middle-age male up in the chair in no distress RESPIRATORY SYSTEM: Unlabored breathing , coarse breath sounds bilaterally HEART: S1 S2 regular rate and rhythm , ABDOMEN: Soft , no tenderness EXTREMITIES: No edema feet - Labs CBC & Chem 7: 07/02/22 10:17 07/02/22 10:17 Labs: Abnormal Lab Results - Last 24 Hours (Table) 07/01/22 07/01/22 07/02/22 Range/Units 16:15 20:04 06:38 WBC (3.8-10.6) k/uL RBC (4.30-5.90) m/uL Hgb (13.0-17.5) gm/dL Hct (39.0-53.0) % RDW (11.5-15.5) % Neutrophils # (1.3-7.7) k/uL Lymphocytes # (1.0-4.8) k/uL Macrocytosis Sodium (137-145) mmol/L BUN (9-20) mg/dL Creatinine (0.66-1.25) mg/dL Glucose (74-99) mg/dL POC Glucose (mg/dL) 149 H 188 H 154 H (70-110) mg/dL Calcium (8.4-10.2) mg/dL 07/02/22 07/02/22 07/02/22 Range/Units 10:17 10:17 11:31 WBC 14.7 H (3.8-10.6) k/uL RBC 3.49 L (4.30-5.90) m/uL Hgb 10.4 L (13.0-17.5) gm/dL Hct 33.6 L (39.0-53.0) % RDW 26.5 H (11.5-15.5) % Neutrophils # 13.4 H (1.3-7.7) k/uL Lymphocytes # 0.4 L (1.0-4.8) k/uL Macrocytosis Marked A Sodium 133 L (137-145) mmol/L BUN 29 H (9-20) mg/dL Creatinine 0.58 L (0.66-1.25) mg/dL Glucose 182 H (74-99) mg/dL POC Glucose (mg/dL) 199 H (70-110) mg/dL Calcium 7.9 L (8.4-10.2) mg/dL Microbiology - Last 24 Hours (Table) 06/26/22 13:25 Blood Culture - Preliminary Blood No Growth after 120 hours 06/26/22 13:25 Blood Culture - Preliminary Blood No Growth after 120 hours Assessment and Plan (1) Pneumonia Current Visit: Yes Status: Acute Code(s): J18.9 - PNEUMONIA, UNSPECIFIED ORGANISM SNOMED Code(s): 802803892 Plan: 1patient presented to hospital with increasing shortness of breath which is likely multifactorial in this patient who do have a history of emphysema also w ith a history of lung cancer now with evidence of right-sided loculated fluid concerning for possible empyema and has been in and out of the hospital we will need to cover for resistant gram-positive as well as gram-negative. 2we will try to obtain sputum for Gram stain and culture , the patient pro calcitonin came back as 0.06 which is normal 3patient seemed to have shown clinical improvement and patient did have a repeat CT chest completed on 07/01/2022 which did show some improvement 4-patient to continue with vancomycin Zosyn, Levaquin and Eraxis, kidney function will be monitored closely Time with Patient: Less than 30
[2022-07-03] MEDS: LORazepam 0.5 MG TAB PO PRN ×2 (00:36→20:20)
[2022-07-03] MEDS: VANCOMYCIN 1,250 MG in SODIUM CHLORIDE 0.9% 250 ML IVPB SCH ×3 (02:12→19:11)
[2022-07-03] MEDS: PIPERACILLIN-TAZOBACTAM 3.375 GM in SODIUM CHLORIDE 0.9% 100 ML IVPB SCH ×3 (02:12→18:35)
[2022-07-03] MEDS: methylPREDNISolone SOD SUCCI 125 MG/2 ML VIAL IV SCH ×4 (05:30→23:44)
[2022-07-03 06:23] LABS: Glucose,Whole Blood 182 mg/dL (70-110)
[2022-07-03] MEDS: INSULIN ASPART (NovoLOG) 100 UNIT/ML VIAL SQ SCH ×4 (06:26→20:15)
[2022-07-03] MEDS: PANTOPRAZOLE 40 MG TABLET PO SCH (06:26)
[2022-07-03 06:55] LABS: African American GFR (CKD) >90 (>60 ml/min/1.73 sqM); Non-African American GFR(CKD) >90 (>60 ml/min/1.73 sqM)
--- NOTE | 2022-07-03 07:44 | P.PN ---
Subjective Progress Note Date: 07/03/22 A 62-year-old male patient with severe bullous emphysema, a chronic smoker is more than [id number] smoking history. 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 Postop course was complicated by development of chylothorax for which a Pleurx catheter was inserted and ultimately this was removed. His postop course was also complicated by development of pulmonary embolism and the patient was treated with anticoagulants and the patient continues to be on anti-coagulation with Eliquis. PET/CT that was done on 03/18/2022 showed progression of his disease with increase in the size and the metabolic activity of the mediastinal mass/lymphadenopathy. Based on that, the patient was started on treatment and the patient was given systemic chemotherapy with a combination of carboplatinum and [employer]-16. He also completed radiation therapy. Since then, the patient's health has been in generally getting worse. He was hospitalized back in early June with worsening shortness of breath. At that time, he was having issues related to chemotherapy toxicity with pancytopenia. He was quite leukopenic and he was also anemic. His platelet count also dropped. During his hospital stay, the patient gradually improved and he was ultimately discharged home on oxygen. During his hospital stay, he also had a transient ischemic attack with some left-sided weakness. And neuro workup was done including a CT angiogram of the brain that showed no acute abnormalities. The patient ultimately recovered and he was started on aspirate 1 mg by mouth daily. Anti-coagulation was resumed. During this current hospitalization admission, the patient noticed that he was getting more hypoxic. Even with limited amount of activity, his pulse ox was dropping and his oxygen requirements gradually we will going up and he was using 5 L oxygen by nasal cannula. He decided to come into the hospital because of worsening shortness of breath. In the emergency, the patient was found to be quite short of breath. He had minimal amount of sputum production. No fever or chills. No reported chest pain. He was quite dyspneic. No altered mentation. Immediately, a CT angiogram was done and this rules out the possibility of pulmonary embolism. There was new areas of infiltration of the right lower lobe compared to the previous CAT scan and there was also tumor encasement of the right pulmonary artery on the posterior wall. There was also tumor encasement of the right lower lobe pulmonary vein and there was bilateral enlarged lymph nodes at the level of the abdirizak. The mass and the lymphadenopathy appears to have increased in size compared to the earlier examination. This is based on the radiologist's report. Patient is currently on high flow oxygen at 10 L in addition to a nonrebreather facemask. His current pulse ox 100%. WBC count is at 8 with a hemoglobin 9.2 and a platelet count of 188. Normal coagulation profile. D-dimer is at 1.27. Influenza screen, Covid 19 screen and RSV were all negative. He was started on IV Solu-Medrol. Is on DuoNeb about treatments [id number]. He was also started on IV cefepime and vancomycin is to be added. No major swelling in the lower extremities bilaterally. Today's evaluation of 06/28/2022, the patient is currently in the intensive care unit currently on high flow oxygen at 60 L with an FiO2 of 90%. He seems a more comfortable compared to yesterday. Breathing is less labored and his pulse ox is around 96-98%. Chest x-ray still showing bilateral pulmonary infiltrates most on the right lung and there is some infiltration of the left. Based on his immunosuppression frequent hospitalizations, the patient was started on a combination of cefepime and vancomycin. Currently is afebrile. He is hemodynamically stable. Cardiac rhythm is sinus. His echoes at 15.7 with a hemoglobin of 8.1 and a platelet count of 189. Sodium is at 139 with a potassium level of 3.9. BUN is at 70 with a creatinine of 0.5. Pro-calcitonin level is still pending. LFTs are mildly elevated with an AST of 61, ALT of 81, alkaline phosphatase of 92. His albumin level is at 2.7. No major swelling in lower extremities. Remains on anticoagulants with Eliquis. Remains on bronchodilators. Remains on IV Solu-Medrol 60 mg every 6 hours 06/29/2022, the patient is being seen for a follow-up. Remains on high flow oxygen with 60 L with an FiO2 of 80%. Chest x-ray findings of essentially unchanged. Bilateral pulmonary infiltrates worse on the right and the patient also has a chronic right-sided pleural effusion. In terms of antibiotic coverage, he is on a combination of cefepime and vancomycin for now. His pro calcitonin level was 0.06. He remains on bronchodilators. He remains on steroids. He is using the incentive spirometer and falling approximately 2000. In terms of his white count, he is white count is at 12.5 with a hemoglobin 8.3 and a platelet count of 213. Sodium is at 135, potassium is 4.7, BUN 19 and a creatinine of 0.6. Cultures are all negative including sputum and blood. His viral screen was also negative. His breathing is still labored. He desaturates upon talking. Nevertheless, one breathing through his nose, is able to maintain a saturation above 90%. His current pulse ox is around 93%. No significant tachycardia. Mild tachypnea. He is not using it is a muscle breathing. He is tolerating his diet for now. Extreme 2022, the patient is on high flow oxygen at 5 L with an FiO2 of 70%. Remains on broad-spectrum antibiotic and antifungal agents. He is currently on a combination of Zosyn, vancomycin, Levaquin and Eraxis. No positive cultures. Chest x-ray findings of essentially unchanged. The pro-calcitonin level was low. No blood work from today. The blood work from yesterday was noted. He is supposed to have a CBC and a basic metabolic profile. His speech is improved. Is able to speak longer sentences. His pulse ox is around 91-92% on the above-mentioned settings. He remains on IV steroids. Fluid balance has been in the order of 930 mL negative. The patient is tolerating diet. No aspiration. Legionella urine antigen came back negative. 07/01/2022, the patient remains on high flow oxygen at 60 L an FiO2 of 60%. He desaturates rather easily. Chest x-ray findings of essentially unchanged. Clinically unchanged and the patient is not showing any significant progress over the past few days. Meanwhile, he is on a broad-spectrum antibiotic coverage and the patient is currently on IV Zosyn, IV vancomycin, IV Eraxis, and by mouth Levaquin. He is afebrile. He is hemodynamically stable. His WBC count of 15.8 with a hemoglobin of 8.9. BUN is at 24 with a creatinine of 0.7 and a sodium level is at 134. Mental status is adequate. Moving all 4 extremities. Using the senna spirometer. 07/02/2022, patient remains on high flow oxygen. He remains on 60 L with an FiO2 of 60%. Based on his ongoing issues with oxygen desaturation, I repeated his CAT scan of the chest. I reviewed the CAT scan and as expected the patient has advanced emphysema with diffuse COPD changes throughout the lung gleason bilaterally. There is also some narrowing in the pulmonary artery branches and this favored chronic thromboemboli involving the right lower lobe pulmonary artery branches. There is an area of large fluid collection which is chronic measuring 10 x 3.6 cm in size in the posterior right lung base. There is also residual but improving airspace disease in the right midlung suggestive of an improving pneumonia. There is also evidence of mediastinal lymphadenopathy consistent with his underlying history of small cell lung cancer. As such, there is some limited improvement in his pneumonia. There is also chronic thromboemboli involving the right lower lobe pulmonary artery branch. The patient continues to be on broad-spectrum antibiotics. He is currently receiving a combination of antibiotics including Eraxis, Zosyn, Levaquin and vancomycin. He remains on IV Solu-Medrol 60 mg every 6 hours. Cultures are all negative. In terms of his blood work, there are all pending from today. His vancomycin trough level is at 18. He is sitting up on a chair. His pulse ox is 88% on the current high flow settings. He desaturates easily. However he does recover. Mental status is adequate. His tolerating his diet. 07/03/2022, the patient remains on high flow oxygen. This morning he is on 60 L an FiO2 of 60%. He is in good spirits. His breathing comfortably. He gets short of breath with limited amount of activity. No significant cough. No fever or sputum production. No fever or chills. No altered mentation. Repeat CAT scan of the chest showed some improvement in the right lower lobe pneumonia. There is a loculated right-sided pleural effusion measuring 10 x 3 cm in size and the patient also has extensive emphysema with upper lobe predominance and diffuse bullous changes. There is also mediastinal lymphadenopathy consistent with residual small cell lung cancer. He remains on the same antibiotic coverag e. He is on steroids. There is some chronic thromboembolic changes in the right lower lobe pulmonary artery branches and for that reason the patient has limited on anticoagulation with Eliquis. No new labs are available from today. In fact her blood work is still pending. White cell count from yesterday that 14.7 with a hemoglobin of 10.4. In terms of therapy, the patient is still on broad-spectrum antibiotics. The current antibiotic coverage includes Eraxis, Zosyn and vancomycin and Levaquin. He remains on IV Solu-Medrol at a dose of 60 mg every 6 hours. No oropharyngeal candidiasis at this point in time. IV fluids are currently at KVO and the patient is also being diuresed with Lasix 20 mg IV every 24 hours and the fluid balance over the past 24 hours has been in the order of -2.4 L. Objective - Vital Signs Vital signs: Vital Signs Temp 97.7 F 07/03/22 04:00 Pulse 95 07/03/22 07:00 Resp 26 H 07/03/22 07:00 BP 109/69 07/03/22 07:00 Pulse Ox 90 L 07/03/22 07:00 FiO2 60 07/03/22 04:00 Intake & Output 07/02/22 07/03/22 07/03/22 18:59 06:59 18:59 Intake Total 920 470 10 Output Total 950 850 250 Balance -30 -380 -240 Weight 71.4 kg Intake: IV 120 470 10 .9NS 120 120 10 Piperacillin-Tazobactam 3 100 .375 gm In Sodium Chloride 0.9% 100 ml @ 25 mls/hr IVPB Q8H BHAVNA Rx#: [id number] Vancomycin 1,250 mg In 250 Sodium Chloride 0.9% 250 ml @ 125 mls/hr IVPB Q8H [facility]AVNA Rx#:[id number] Oral 800 Output: Urine 950 850 250 Other: Voiding Method Urinal Urinal # Voids 1 # Bowel Movements 1 - Exam General Appearance no diaphoresis, no respiratory distress, speech not interrupted by breaths, no dyspnea, no pallor, not cachectic, well nourished, appears well, the patient is currently on high flow oxygen with 60 L an FiO2 of 60% , seems to much more comfortable compared to yesterday in terms of his breathing. Not using accessory muscles of breathing. He had a full breakfast this morning HEENT no pursed lip breathing, no jugular venous distention, no mucous membrane cyanosis, no perioral cyanosis, mallampati classification: class 1 Chest no barrel chest, no retractions, no sternocleidomastoid muscle contract ions, no supraclavicular retractions, no intercostal retractions, no prolonged expiratory wheezing, no decreased air movement, no rhonchi, no hyperinflation, (normal) adventitious sounds: rales / crackles: bilaterally: midlung gleason, decreased air movement Heart no right ventricular heave, no distant heart sounds, no s3 gallop, (normal) jugular vein: jugular venous distention: by 0cm, (normal) jugular vein GI bowel sounds: Abdominal exam revealed normal bowel sounds. The abdomen was soft, non-tender, and without masses, organomegaly, or appreciable enlargement of the abdominal aorta. Extremities no cyanosis, no clubbing, no edema Neurologic no decreased mental status, no somnolence, no confusion Assisstive Devices: ambulates with no assitive devices Gait and Mobility: gait WNL, full weight bearing Examination of the skin revealed no evidence of significant rashes, suspicious appearing nevi or other concerning lesions. - Labs CBC & Chem 7: 07/02/22 10:17 07/03/22 06:25 Labs: Abnormal Lab Results - Last 24 Hours (Table) 07/02/22 07/02/22 07/02/22 Range/Units 10:17 10:17 11:31 WBC 14.7 H (3.8-10.6) k/uL RBC 3.49 L (4.30-5.90) m/uL Hgb 10.4 L (13.0-17.5) gm/dL Hct 33.6 L (39.0-53.0) % RDW 26.5 H (11.5-15.5) % Neutrophils # 13.4 H (1.3-7.7) k/uL Lymphocytes # 0.4 L (1.0-4.8) k/uL Macrocytosis Marked A Sodium 133 L (137-145) mmol/L BUN 29 H (9-20) mg/dL Creatinine 0.58 L (0.66-1.25) mg/dL Glucose 182 H (74-99) mg/dL POC Glucose (mg/dL) 199 H (70-110) mg/dL Calcium 7.9 L (8.4-10.2) mg/dL 07/02/22 07/02/22 07/03/22 Range/Units 16:30 20:09 06:21 WBC (3.8-10.6) k/uL RBC (4.30-5.90) m/uL Hgb (13.0-17.5) gm/dL Hct (39.0-53.0) % RDW (11.5-15.5) % Neutrophils # (1.3-7.7) k/uL Lymphocytes # (1.0-4.8) k/uL Macrocytosis Sodium (137-145) mmol/L BUN (9-20) mg/dL Creatinine (0.66-1.25) mg/dL Glucose (74-99) mg/dL POC Glucose (mg/dL) 158 H 153 H 182 H (70-110) mg/dL Calcium (8.4-10.2) mg/dL 07/03/22 Range/Units 06:25 WBC (3.8-10.6) k/uL RBC (4.30-5.90) m/uL Hgb (13.0-17.5) gm/dL Hct (39.0-53.0) % RDW (11.5-15.5) % Neutrophils # (1.3-7.7) k/uL Lymphocytes # (1.0-4.8) k/uL Macrocytosis Sodium (137-145) mmol/L BUN (9-20) mg/dL Creatinine 0.58 L (0.66-1.25) mg/dL Glucose (74-99) mg/dL POC Glucose (mg/dL) (70-110) mg/dL Calcium (8.4-10.2) mg/dL Microbiology - Last 24 Hours (Table) 06/26/22 13:25 Blood Culture - Final Blood No Growth after 144 hours 06/26/22 13:25 Blood Culture - Final Blood No Growth after 144 hours Assessment and Plan Plan: Acute right lung pneumonia. Noted the patient is post right lobectomy involving the right lower lobe. There is a new area of consolidation in the right lung base which was absent on previous evaluation. Rule out a hospital-acquired pneumonia. At same time, the patient is a chronic right-sided pleural effusion, unchanged compared to the previous CAT scan. Chest x-ray from today is showing stable bilateral pulmonary infiltrates. The patient remains on broad-spectrum antibiotics for now. Limited improvement in oxygenation over the past 24 hours. Currently is on 60 L with an FiO2 of 60%. The repeat CAT scan showed chronic rhrombo emboli in the right lower lobe pulmonary artery branch. The patient remains on anticoagulation. There is also improvement of the right mid lung pneumonia. A chronic right lower lobe pleural fluid/pocket related to previous chylothorax, unchanged measuring 10 x 3.6 cm in size. The patient is stable for now. Oxygen is stable. We'll try to wean down the FiO2 and the flow gradually. Awaiting labs from today. Acute hypoxic respiratory failure secondary to above. No evidence of any pulmonary embolism. Rule out an early ARDS Acute on chronic shortness of breath secondary to above Advanced COPD with extensive bullous changes in the upper lobes maintain on Trelegy Ellipta on outpatient basis Chronic hypoxic respiratory failure maintained on oxygen at 2 L/m nasal cannula Squamous cell carcinoma of the lung, T3 N0 M0 and the patient has undergone previous right lower lobe resection Small cell lung cancer with positive subcarinal lymph nodes and the patient is completing chemotherapy and radiation therapy. The patient completed radiation therapy and the patient has taken only a single session of systemic chemotherapy with [place] and [employer]-16. History of pulmonary embolism. The patient bilateral multilobar pulmonary embolism and he was receiving and the coagulation with Eliquis on outpatient basis. This pulmonary embolism occurred following his thoracotomy and right lower lobe resection and the patient was being treated with anticoagulants. Acute leukopenia, chemotherapy-induced and the patient received Neulasta on an outpatient basis recovered and the white cell count has improved Acute thrombocytopenia, chemotherapy-induced, improved Acute anemia, chemotherapy-induced. Hemoglobin is 8.9 Generalized weakness secondary to above Difficulty swallowing likely secondary to radiation to the chest, rule out a component of radiation esophagitis History of chylothorax and the patient has undergone previous Pleurx catheter insertion. Currently the catheter is out and the patient has some loculated stable right-sided pleural effusion History of coronary artery disease with previous stenting of the LAD, currently stable Plan Based on the CAT scan results, no other interventions are suspected and we'll stay the course. We'll continue the same treatment until being the antibiotics, steroids and oxygen supplementation. There is interval improvement in the right lower lobe pulmonary infiltrate The patient was placed on Airvo 60 L with an FiO2 of 60%. We'll gradually wean, we'll try to go down to 50 L with an FiO2 of 50% and possible We'll continue same antibiotic coverage Check Legionella urine antigen was checked and this was negative Continue bronchodilators Continue steroids, currently on 60 mg of IV Solu-Medrol every 6 hours. Lasix 20 mg IV every 24 hours and and the patient remains in negative fluid balance Continue to coagulation with Eliquis IV to KVO. Blood cultures are negative Check pro calcitonin level, and the levels are low. We'll continue to follow Condition is critical and prognosis poor based above-mentioned comorbidities. I had a discussion with the daughter and the patient and went over the images and explained to them ongoing treatment and prognosis.
[2022-07-03] MEDS: BUDESONIDE 1 MG/2 ML NEBU INHALATION SCH ×2 (07:46→19:54)
[2022-07-03] MEDS: IPRATROPIUM-ALBUTEROL 3 ML NEB INHALATION SCH ×4 (07:46→19:53)
[2022-07-03] MEDS: FORMOTEROL FUMARATE 20 MCG/2 ML NEBU INHALATION SCH ×2 (07:47→19:53)
[2022-07-03] MEDS: APIXABAN 5 MG TAB PO SCH ×2 (09:15→20:15)
[2022-07-03] MEDS: METOPROLOL TARTRATE 12.5 MG TAB PO SCH ×2 (09:15→20:15)
[2022-07-03] MEDS: MULTIVITAMINS, THERA 1 EACH TAB PO SCH (09:15)
[2022-07-03] MEDS: LEVOFLOXACIN 750 MG TAB PO SCH (09:16)
[2022-07-03] MEDS: MAG HYDROX/AL HYDROX/SIMETH 30 ML, LIDOCAINE VISCOUS 2% 30 ML, diphenhydrAMINE ELIXIR 7... PO SCH ×12 (09:16→21:50)
[2022-07-03] MEDS: FUROSEMIDE 10 MG/ML 2 ML VIAL IV SCH (09:16)
[2022-07-03] MEDS: ANIDULAFUNGIN 100 MG in SODIUM CHLORIDE 0.9% 100 ML IVPB SCH (09:19)
[2022-07-03 11:34] LABS: Glucose,Whole Blood 160 mg/dL (70-110)
[2022-07-03 16:14] LABS: Glucose,Whole Blood 151 mg/dL (70-110)
--- NOTE | 2022-07-03 17:57 | P.PN ---
Subjective Progress Note Date: 07/03/22 Principal diagnosis: Pneumonia Patient is a 62-year-old male with a past medical history significant for emphysema chronic smoker and also small cell lung cancer as well as squamous cell cancer of the lung status post right lower lobectomy postop course complicated by chylothorax for the Pleurx catheter has been placed also with a history of PE, patient presented to the hospital with increasing shortness of breath and hypoxemia CT with evidence of extensive infiltrate right lower lobe and loculated effusion. On today's evaluation that is 07/03/2022, patient remains to be afebrile, the patient is breathing comfortably and FiO2 is currently at 60 %, the patient c ontinued to have a dry cough, no nausea no vomiting no abdominal pain or diarrhea Objective - Vital Signs Vital signs: Vital Signs Temp 97.7 F 07/03/22 04:00 Pulse 106 H 07/03/22 08:09 Resp 26 H 07/03/22 07:00 BP 109/69 07/03/22 07:00 Pulse Ox 90 L 07/03/22 07:47 FiO2 55 07/03/22 08:09 Intake & Output 07/02/22 07/03/22 07/03/22 18:59 06:59 18:59 Intake Total 920 470 10 Output Total 950 850 250 Balance -30 -380 -240 Weight 71.4 kg Intake: IV 120 470 10 .9NS 120 120 10 Piperacillin-Tazobactam 3 100 .375 gm In Sodium Chloride 0.9% 100 ml @ 25 mls/hr IVPB Q8H [facility] Rx#: [id number] Vancomycin 1,250 mg In 250 Sodium Chloride 0.9% 250 ml @ 125 mls/hr IVPB Q8H [facility] Rx#:[id number] Oral 800 Output: Urine 950 850 250 Other: Voiding Method Urinal Urinal # Voids 1 # Bowel Movements 1 - Exam GENERAL DESCRIPTION: A middle-age male up in the chair in no distress RESPIRATORY SYSTEM: Unlabored breathing , coarse breath sounds bilaterally HEART: S1 S2 regular rate and rhythm , ABDOMEN: Soft , no tenderness EXTREMITIES: No edema feet - Labs CBC & Chem 7: 07/02/22 10:17 07/03/22 06:25 Labs: Abnormal Lab Results - Last 24 Hours (Table) 07/02/22 07/02/22 07/02/22 Range/Units 10:17 10:17 11:31 WBC 14.7 H (3.8-10.6) k/uL RBC 3.49 L (4.30-5.90) m/uL Hgb 10.4 L (13.0-17.5) gm/dL Hct 33.6 L (39.0-53.0) % RDW 26.5 H (11.5-15.5) % Neutrophils # 13.4 H (1.3-7.7) k/uL Lymphocytes # 0.4 L (1.0-4.8) k/uL Macrocytosis Marked A Sodium 133 L (137-145) mmol/L BUN 29 H (9-20) mg/dL Creatinine 0.58 L (0.66-1.25) mg/dL Glucose 182 H (74-99) mg/dL POC Glucose (mg/dL) 199 H (70-110) mg/dL Calcium 7.9 L (8.4-10.2) mg/dL 07/02/22 07/02/22 07/03/22 Range/Units 16:30 20:09 06:21 WBC (3.8-10.6) k/uL RBC (4.30-5.90) m/uL Hgb (13.0-17.5) gm/dL Hct (39.0-53.0) % RDW (11.5-15.5) % Neutrophils # (1.3-7.7) k/uL Lymphocytes # (1.0-4.8) k/uL Macrocytosis Sodium (137-145) mmol/L BUN (9-20) mg/dL Creatinine (0.66-1.25) mg/dL Glucose (74-99) mg/dL POC Glucose (mg/dL) 158 H 153 H 182 H (70-110) mg/dL Calcium (8.4-10.2) mg/dL 07/03/22 Range/Units 06:25 WBC (3.8-10.6) k/uL RBC (4.30-5.90) m/uL Hgb (13.0-17.5) gm/dL Hct (39.0-53.0) % RDW (11.5-15.5) % Neutrophils # (1.3-7.7) k/uL Lymphocytes # (1.0-4.8) k/uL Macrocytosis Sodium (137-145) mmol/L BUN (9-20) mg/dL Creatinine 0.58 L (0.66-1.25) mg/dL Glucose (74-99) mg/dL POC Glucose (mg/dL) (70-110) mg/dL Calcium (8.4-10.2) mg/dL Microbiology - Last 24 Hours (Table) 06/26/22 13:25 Blood Culture - Final Blood No Growth after 144 hours 06/26/22 13:25 Blood Culture - Final Blood No Growth after 144 hours Assessment and Plan (1) Pneumonia Current Visit: Yes Status: Acute Code(s): J18.9 - PNEUMONIA, UNSPECIFIED ORGANISM SNOMED Code(s): 828661500 Plan: 1patient presented to hospital with increasing shortness of breath which is likely multifactorial in this patient who do have a history of emphysema also with a history of lung cancer now with evidence of right-sided loculated fluid concerning for possible empyema and has been in and out of the hospital we will need to cover for resistant gram-positive as well as gram-negative. 2we will try to obtain sputum for Gram stain and culture , the patient pro calcitonin came back as 0.06 which is normal 3patient did have minimal clinical improvement and patient did have a repeat CT chest completed on 07/01/2022 also showed some improvement 4-patient currently being treated with vancomycin Zosyn, Levaquin and Eraxis, kidney function remains to be stable and will be monitored closely Time with Patient: Less than 30
[2022-07-03 20:05] LABS: Glucose,Whole Blood 155 mg/dL (70-110)
[2022-07-03] MEDS: ATORVASTATIN 80 MG TAB PO SCH (20:15)
[2022-07-04] MEDS: IPRATROPIUM-ALBUTEROL 3 ML NEB INHALATION PRN ×2 (00:08→03:42)
[2022-07-04] MEDS: PIPERACILLIN-TAZOBACTAM 3.375 GM in SODIUM CHLORIDE 0.9% 100 ML IVPB SCH ×3 (02:01→18:18)
[2022-07-04] MEDS: VANCOMYCIN 1,250 MG in SODIUM CHLORIDE 0.9% 250 ML IVPB SCH ×2 (03:15→10:17)
[2022-07-04] MEDS: PANTOPRAZOLE 40 MG TABLET PO SCH (06:23)
[2022-07-04] MEDS: methylPREDNISolone SOD SUCCI 125 MG/2 ML VIAL IV SCH ×3 (06:23→18:18)
[2022-07-04 06:38] LABS: Glucose,Whole Blood 137 mg/dL (70-110)
[2022-07-04] MEDS: INSULIN ASPART (NovoLOG) 100 UNIT/ML VIAL SQ SCH ×4 (06:44→20:27)
--- NOTE | 2022-07-04 07:20 | XR ---
EXAMINATION TYPE: XR chest 1V portable DATE OF EXAM: 07/04/2022 COMPARISON: 07/02/2022 INDICATION: Pneumonia TECHNIQUE: Single frontal view of the chest is obtained. FINDINGS: The heart size is normal. The pulmonary vasculature is normal. Bibasilar infiltrates are present. Some linear opacities at the right base. There is a meniscus along the lateral right lung margins suggestive for pleural effusion. Bibasilar findings may be superimpos ed pulmonary fibrosis. IMPRESSION: 1. Bibasilar infiltrates, greater on the right. Correlate for pneumonia and atelectasis. 2. Underlying pulmonary fibrosis may be present.
[2022-07-04 07:31] LABS: Anisocytosis Marked; HCT 35.5 % (39.0-53.0); HGB 10.8 gm/dL (13.0-17.5); Hypochromasia Marked; MCH 30.1 pg (25.0-35.0); MCHC 30.4 g/dL (31.0-37.0); MCV 99.1 fL (80.0-100.0); Macrocytosis Marked; Mean Platelet Volume 7.9; Platelet Count 265 k/uL (150-450); Poikilocytosis Slight; RBC 3.58 m/uL (4.30-5.90); WBC 19.9 k/uL (3.8-10.6)
[2022-07-04 07:36] LABS: RDW 26.7 % (11.5-15.5)
[2022-07-04 07:48] LABS: ALT 67 U/L (4-49); AST 33 U/L (17-59); African American GFR (CKD) >90 (>60 ml/min/1.73 sqM); Albumin 3.3 g/dL (3.5-5.0); Alkaline Phosphatase 81 U/L (38-126); Anion Gap 4 mmol/L; Blood Urea Nitrogen 24 mg/dL (9-20); Calcium 8.2 mg/dL (8.4-10.2); Carbon Dioxide 29 mmol/L (22-30); Chloride 102 mmol/L (98-107); Glucose 114 mg/dL (74-99); Non-African American GFR(CKD) >90 (>60 ml/min/1.73 sqM); Potassium 4.4 mmol/L (3.5-5.1); Sodium 135 mmol/L (137-145); Total Bilirubin 0.8 mg/dL (0.2-1.3); Total Protein 5.8 g/dL (6.3-8.2)
[2022-07-04] MEDS: FORMOTEROL FUMARATE 20 MCG/2 ML NEBU INHALATION SCH ×2 (08:17→21:09)
[2022-07-04] MEDS: IPRATROPIUM-ALBUTEROL 3 ML NEB INHALATION SCH ×4 (08:17→21:09)
[2022-07-04] MEDS: BUDESONIDE 1 MG/2 ML NEBU INHALATION SCH ×2 (08:17→21:09)
[2022-07-04] MEDS: MULTIVITAMINS, THERA 1 EACH TAB PO SCH (08:56)
[2022-07-04] MEDS: FUROSEMIDE 10 MG/ML 2 ML VIAL IV SCH (08:56)
[2022-07-04] MEDS: LEVOFLOXACIN 750 MG TAB PO SCH (08:56)
[2022-07-04] MEDS: APIXABAN 5 MG TAB PO SCH ×2 (08:56→20:35)
[2022-07-04] MEDS: METOPROLOL TARTRATE 12.5 MG TAB PO SCH ×2 (08:56→20:35)
[2022-07-04] MEDS: MAG HYDROX/AL HYDROX/SIMETH 30 ML, LIDOCAINE VISCOUS 2% 30 ML, diphenhydrAMINE ELIXIR 7... PO SCH ×12 (08:58→20:40)
[2022-07-04 11:39] LABS: Glucose,Whole Blood 168 mg/dL (70-110)
[2022-07-04] MEDS: ANIDULAFUNGIN 100 MG in SODIUM CHLORIDE 0.9% 100 ML IVPB SCH (12:44)
--- NOTE | 2022-07-04 13:34 | P.PN ---
Subjective Progress Note Date: 07/04/22 Principal diagnosis: Acute hypoxic respiratory failure, multifactorial. A 62-year-old male patient with severe bullous emphysema, a chronic smoker is more than [id number] smoking history. 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 Postop course was complicated by development of chylothorax for which a Pleurx catheter was inserted and ultimately this was removed. His postop course was also complicated by development of pulmonary embolism and the patient was treated with anticoagulants and the patient continues to be on anti-coagulation with Eliquis. PET/CT that was done on 03/18/2022 showed progression of his disease with increase in the size and the metabolic activity of the mediastinal mass/lymphadenopathy. Based on that, the patient was started on treatment and the patient was given systemic chemotherapy with a combination of carboplatinum and CONTRACTS DIRECTOR-16. He also completed radiation therapy. Since then, the patient's health has been in generally getting worse. He was hospitalized back in early June with worsening shortness of breath. At that time, he was having issues related to chemotherapy toxicity with pancytopenia. He was quite leukopenic and he was also anemic. His platelet count also dropped. During his hospital stay, the patient gradually improved and he was ultimately discharged home on oxygen. During his hospital stay, he also had a transient ischemic attack with some left-sided weakness. And neuro workup was done including a CT angiogram of the brain that showed no acute abnormalities. The patient ultimately recovered and he was started on aspirate 1 mg by mouth daily. Anti-coagulation was resumed. During this current hospitalization admission, the patient noticed that he was getting more hypoxic. Even with limited amount of activity, his pulse ox was dropping and his oxygen requirements gradually we will going up and he was using 5 L oxygen by nasal cannula. He decided to come into the hospital because of worsening shortness of breath. In the emergency, the patient was found to be quite short of breath. He had minimal amount of sputum production. No fever or chills. No reported chest pain. He was quite dyspneic. No altered mentation. Immediately, a CT angiogram was done and this rules out the possibility of pulmonary embolism. There was new areas of infiltration of the right lower lobe compared to the previous CAT scan and there was also tumor encasement of the right pulmonary artery on the posterior wall. There was also tumor encasement of the right lower lobe pulmonary vein and there was bilateral enlarged lymph nodes at the level of the abdirizak. The mass and the lymphadenopathy appears to have increased in size compared to the earlier examination. This is based on the radiologist's report. Patient is currently on high flow oxygen at 10 L in addition to a nonrebreather facemask. His current pulse ox 100%. WBC count is at 8 with a hemoglobin 9.2 and a platelet count of 188. Normal coagulation profile. D-dimer is at 1.27. Influenza screen, Covid 19 screen and RSV were all negative. He was started on IV Solu-Medrol. Is on DuoNeb about treatments [id number]. He was also started on IV cefepime and vancomycin is to be added. No major swelling in the lower extremities bilaterally. Today's evaluation of 06/28/2022, the patient is currently in the intensive care unit currently on high flow oxygen at 60 L with an FiO2 of 90%. He seems a more comfortable compared to yesterday. Breathing is less labored and his pulse ox is around 96-98%. Chest x-ray still showing bilateral pulmonary infiltrates most on the right lung and there is some infiltration of the left. Based on his immunosuppression frequent hospitalizations, the patient was started on a combination of cefepime and vancomycin. Currently is afebrile. He is hemodynamically stable. Cardiac rhythm is sinus. His echoes at 15.7 with a hemoglobin of 8.1 and a platelet count of 189. Sodium is at 139 with a potassium level of 3.9. BUN is at 70 with a creatinine of 0.5. Pro-calcitonin level is still pending. LFTs are mildly elevated with an AST of 61, ALT of 81, alkaline phosphatase of 92. His albumin level is at 2.7. No major swelling in lower extremities. Remains on anticoagulants with Eliquis. Remains on bronchodilators. Remains on IV Solu-Medrol 60 mg every 6 hours 06/29/2022, the patient is being seen for a follow-up. Remains on high flow oxygen with 60 L with an FiO2 of 80%. Chest x-ray findings of essentially unchanged. Bilateral pulmonary infiltrates worse on the right and the patient also has a chronic right-sided pleural effusion. In terms of antibiotic coverage, he is on a combination of cefepime and vancomycin for now. His pro calcitonin level was 0.06. He remains on bronchodilators. He remains on steroids. He is using the incentive spirometer and falling approximately 2000. In terms of his white count, he is white count is at 12.5 with a hemoglobin 8.3 and a platelet count of 213. Sodium is at 135, potassium is 4.7, BUN 19 and a creatinine of 0.6. Cultures are all negative including sputum and blood. His viral screen was also negative. His breathing is still labored. He desaturates upon talking. Nevertheless, one breathing through his nose, is able to maintain a saturation above 90%. His current pulse ox is around 93%. No significant tachycardia. Mild tachypnea. He is not using it is a muscle breathing. He is tolerating his diet for now. Extreme 2022, the patient is on high flow oxygen at 5 L with an FiO2 of 70%. Remains on broad-spectrum antibiotic and antifungal agents. He is currently on a combination of Zosyn, vancomycin, Levaquin and Eraxis. No positive cultures. Chest x-ray findings of essentially unchanged. The pro-calcitonin level was low. No blood work from today. The blood work from yesterday was noted. He is supposed to have a CBC and a basic metabolic profile. His speech is improved. Is able to speak longer sentences. His pulse ox is around 91-92% on the above-mentioned settings. He remains on IV steroids. Fluid balance has been in the order of 930 mL negative. The patient is tolerating diet. No aspiration. Legionella urine antigen came back negative. 07/01/2022, the patient remains on high flow oxygen at 60 L an FiO2 of 60%. He desaturates rather easily. Chest x-ray findings of essentially unchanged. Clinically unchanged and the patient is not showing any significant progress over the past few days. Meanwhile, he is on a broad-spectrum antibiotic co verage and the patient is currently on IV Zosyn, IV vancomycin, IV Eraxis, and by mouth Levaquin. He is afebrile. He is hemodynamically stable. His WBC count of 15.8 with a hemoglobin of 8.9. BUN is at 24 with a creatinine of 0.7 and a sodium level is at 134. Mental status is adequate. Moving all 4 extremities. Using the senna spirometer. 07/02/2022, patient remains on high flow oxygen. He remains on 60 L with an FiO2 of 60%. Based on his ongoing issues with oxygen desaturation, I repeated his CAT scan of the chest. I reviewed the CAT scan and as expected the patient has advanced emphysema with diffuse COPD changes throughout the lung gleason bilaterally. There is also some narrowing in the pulmonary artery branches and this favored chronic thromboemboli involving the right lower lobe pulmonary artery branches. There is an area of large fluid collection which is chronic measuring 10 x 3.6 cm in size in the posterior right lung base. There is also residual but improving airspace disease in the right midlung suggestive of an improving pneumonia. There is also evidence of mediastinal lymphadenopathy consistent with his underlying history of small cell lung cancer. As such, there is some limited improvement in his pneumonia. There is also chronic thromboemboli involving the right lower lobe pulmonary artery branch. The patient continues to be on broad-spectrum antibiotics. He is currently receiving a combination of antibiotics including Eraxis, Zosyn, Levaquin and vancomycin. He remains on IV Solu-Medrol 60 mg every 6 hours. Cultures are all negative. In terms of his blood work, there are all pending from today. His vancomycin trough level is at 18. He is sitting up on a chair. His pulse ox is 88% on the current high flow settings. He desaturates easily. However he does recover. Mental status is adequate. His tolerating his diet. Reevaluated today on 07/04/2022, patient remains in the ICU, maintained on a nonrebreather mask, airvo at 60 L and 55% FiO2. Patient is maximized on antibiotics and antifungal he is on Zosyn and Levaquin and vancomycin and Eraxis these are being addressed by infectious disease on the case. Clinically the patient is marginal at best, if he does not improve, may require intubation and mechanical ventilation. Continues to have leukocytosis with WBC of 19.9 hemoglobin 10.80 left lites are normal renal profile is normal. Chest x-ray continues to show by basilar infiltrates mostly on the right side, underlying interstitial lung disease or possibly lymphangitic carcinomatosis days to be considered considering that the patient is not improving much with bronchodilators and antibiotics Objective - Vital Signs Vital signs: Vital Signs Temp 97.7 F 07/04/22 12:00 Pulse 106 H 07/04/22 12:24 Resp 22 07/04/22 12:24 BP 113/81 07/04/22 12:00 Pulse Ox 90 L 07/04/22 12:24 FiO2 60 07/04/22 12:24 Intake & Output 07/03/22 07/04/22 07/04/22 18:59 06:59 18:59 Intake Total 720 440 510 Output Total 1575 1000 2050 Balance -905 560 -1540 Weight 76 kg Intake: IV 120 440 510 .9NS 120 90 60 Piperacillin-Tazobactam 3 100 100 .375 gm In Sodium Chloride 0.9% 100 ml @ 25 mls/hr IVPB Q8H [facility] Rx#: [id number] Vancomycin 1,250 mg In 250 250 Sodium Chloride 0.9% 250 ml @ 125 mls/hr IVPB Q8H [facility] Rx#:[id number] anidulafungin 100 Oral 600 Output: Urine 1575 1000 2050 Other: Voiding Method Urinal Urinal Urinal # Voids 1 # Bowel Movements 1 1 1 - Exam Physical Exam: Revealed a 62-year-old white male in no distress, however he is on relatively high FiO2 as noted. Head: Atraumatic, normocephalic. HEENT:[Neck is supple.] [No neck masses.] [No thyromegaly.] [No JVD.] Chest: Minimal crackles at the bases no rhonchi and no wheezes Cardiac Exam: [Normal S1 and S2, no S3 gallop, no murmur.] Abdomen: [Soft, nontender, no megaly, no rebound, no guarding, normal bowel sounds.] Extremities: [No clubbing, no edema, no cyanosis.] Neurological Exam: [No focal neurologic deficit.] Alert oriented 3. Psychiatric: Normal mood affect and normal mental status examination. Skin: No rashes - Labs CBC & Chem 7: 07/04/22 07:07 07/04/22 07:07 Labs: Abnormal Lab Results - Last 24 Hours (Table) 07/03/22 07/03/22 07/04/22 Range/Units 16:12 20:04 06:36 WBC (3.8-10.6) k/uL RBC (4.30-5.90) m/uL Hgb (13.0-17.5) gm/dL Hct (39.0-53.0) % MCHC (31.0-37.0) g/dL RDW (11.5-15.5) % Macrocytosis Sodium (137-145) mmol/L BUN (9-20) mg/dL Creatinine (0.66-1.25) mg/dL Glucose (74-99) mg/dL POC Glucose (mg/dL) 151 H 155 H 137 H (70-110) mg/dL Calcium (8.4-10.2) mg/dL ALT (4-49) U/L Total Protein (6.3-8.2) g/dL Albumin (3.5-5.0) g/dL 07/04/22 07/04/22 07/04/22 Range/Units 07:07 07:07 11:38 WBC 19.9 H (3.8-10.6) k/uL RBC 3.58 L (4.30-5.90) m/uL Hgb 10.8 L (13.0-17.5) gm/dL Hct 35.5 L (39.0-53.0) % MCHC 30.4 L (31.0-37.0) g/dL RDW 26.7 H (11.5-15.5) % Macrocytosis Marked A Sodium 135 L (137-145) mmol/L BUN 24 H (9-20) mg/dL Creatinine 0.58 L (0.66-1.25) mg/dL Glucose 114 H (74-99) mg/dL POC Glucose (mg/dL) 168 H (70-110) mg/dL Calcium 8.2 L (8.4-10.2) mg/dL ALT 67 H (4-49) U/L Total Protein 5.8 L (6.3-8.2) g/dL Albumin 3.3 L (3.5-5.0) g/dL Assessment and Plan Assessment: Impression: Acute hypoxic respiratory failure, multifactorial secondary to below Acute right lower lobe pneumonia, possibly hospital-acquired pneumonia Chronic right-sided pleural effusion and previous history of chylothorax. Unchanged in size. Advanced COPD. Underlying interstitial lung disease is to be considered. Squamous cell carcinoma requiring a right lower lobectomy T3 N0 M0 Small cell lung cancer with positive subcarinal nodes, patient finished chemotherapy and radiation therapy History of pulmonary embolism, remains on anticoagulation therapy is pulmonary embolism occurred following thoracotomy and right lower lobe resection Chemotherapy-induced leukopenia Chronic anemia, chemotherapy-induced. Generalized weakness and medical debility History of radiation esophagitis. History of chylothorax. History of underlying coronary artery disease with previous stent of LAD Recommendation: Continue oxygen and titrate accordingly Continue antibiotics as per ID on the case Continue bronchodilators Continue IV Solu-Medrol Continue diuretics and keep the patient in negative balance continue anticoagulation therapy/eliquis Continue to monitor in the ICU Blood cultures remain negative Patient is critically ill may require eventually intubation and mechanical ventilation if he doesn't demonstrate any improvement We will continue to follow. Critical care time is over 30 minutes Time with Patient: Greater than 30
--- NOTE | 2022-07-04 14:24 | P.PN ---
Subjective Progress Note Date: 07/04/22 Principal diagnosis: Pneumonia Patient is a 62-year-old male with a past medical history significant for emphysema chronic smoker and also small cell lung cancer as well as squamous cell cancer of the lung status post right lower lobectomy postop course complicated by chylothorax for the Pleurx catheter has been placed also with a history of PE, patient presented to the hospital with increasing shortness of breath and hypoxemia CT with evidence of extensive infiltrate right lower lobe and loculated effusion. On today's evaluation that is 07/04/2022, patient continues to be afebrile, the patient is breathing comfortably and FiO2 is currently stable at 60 %, the patient continued to have cough but denies any worsening or any purulent secretions, no nausea no vomiting no abdominal pain or diarrhea Objective - Vital Signs Vital signs: Vital Signs Temp 97.7 F 07/04/22 08:00 Pulse 108 H 07/04/22 11:00 Resp 29 H 07/04/22 11:00 BP 117/77 07/04/22 11:00 Pulse Ox 92 L 07/04/22 11:00 FiO2 100 07/04/22 11:00 Intake & Output 07/03/22 07/04/22 07/04/22 18:59 06:59 18:59 Intake Total 720 440 400 Output Total 1575 1000 1450 Balance -855 -560 -1050 Weight 76 kg Intake: IV 120 440 400 .9NS 120 90 50 Piperacillin-Tazobactam 3 100 100 .375 gm In Sodium Chloride 0.9% 100 ml @ 25 mls/hr IVPB Q8H [facility] Rx#: [id number] Vancomycin 1,250 mg In 250 250 Sodium Chloride 0.9% 250 ml @ 125 mls/hr IVPB Q8H [facility] Rx#:[id number] Oral 600 Output: Urine 1575 1000 1450 Other: Voiding Method Urinal Urinal Urinal # Voids 1 # Bowel Movements 1 1 1 - Exam GENERAL DESCRIPTION: A middle-age male up in the chair in no distress RESPIRATORY SYSTEM: Unlabored breathing , coarse breath sounds bilaterally HEART: S1 S2 regular rate and rhythm , ABDOMEN: Soft , no tenderness EXTREMITIES: No edema feet - Labs CBC & Chem 7: 07/04/22 07:07 07/04/22 07:07 Labs: Abnormal Lab Results - Last 24 Hours (Table) 07/03/22 07/03/22 07/03/22 Range/Units 11:32 16:12 20:04 WBC (3.8-10.6) k/uL RBC (4.30-5.90) m/uL Hgb (13.0-17.5) gm/dL Hct (39.0-53.0) % MCHC (31.0-37.0) g/dL RDW (11.5-15.5) % Macrocytosis Sodium (137-145) mmol/L BUN (9-20) mg/dL Creatinine (0.66-1.25) mg/dL Glucose (74-99) mg/dL POC Glucose (mg/dL) 160 H 151 H 155 H (70-110) mg/dL Calcium (8.4-10.2) mg/dL ALT (4-49) U/L Total Protein (6.3-8.2) g/dL Albumin (3.5-5.0) g/dL 07/04/22 07/04/22 07/04/22 Range/Units 06:36 07:07 07:07 WBC 19.9 H (3.8-10.6) k/uL RBC 3.58 L (4.30-5.90) m/uL Hgb 10.8 L (13.0-17.5) gm/dL Hct 35.5 L (39.0-53.0) % MCHC 30.4 L (31.0-37.0) g/dL RDW 26.7 H (11.5-15.5) % Macrocytosis Marked A Sodium 135 L (137-145) mmol/L BUN 24 H (9-20) mg/dL Creatinine 0.58 L (0.66-1.25) mg/dL Glucose 114 H (74-99) mg/dL POC Glucose (mg/dL) 137 H (70-110) mg/dL Calcium 8.2 L (8.4-10.2) mg/dL ALT 67 H (4-49) U/L Total Protein 5.8 L (6.3-8.2) g/dL Albumin 3.3 L (3.5-5.0) g/dL Assessment and Plan (1) Pneumonia Current Visit: Yes Status: Acute Code(s): J18.9 - PNEUMONIA, UNSPECIFIED ORGANISM SNOMED Code(s): 151254670 Plan: 1patient presented to hospital with increasing shortness of breath which is likely multifactorial in this patient who do have a history of emphysema also with a history of lung cancer now with evidence of right-sided loculated fluid concerning for possible empyema and has been in and out of the hospital we will need to cover for resistant gram-positive as well as gram-negative. 2we will try to obtain sputum for Gram stain and culture , the patient pro calcitonin came back as 0.06 which is normal 3patient did have minimal clinical improvement and patient did have a repeat CT chest completed on 07/01/2022 also showed some improvement 4-patient to continue with Zosyn, Levaquin and Eraxis, however switch vancomycin to Zyvox to decrease risk of nephrotoxicity Time with Patient: Less than 30
--- NOTE | 2022-07-04 15:53 | P.PN ---
Subjective Progress Note Date: 07/04/22 Principal diagnosis: lung cancer Patient reports feeling improved today. Still reporting shortness of breath. Currently on 25 L high flow nasal cannula. No other reported complaints at this time Objective - Vital Signs Vital signs: Vital Signs Temp 97.7 F 07/04/22 12:00 Pulse 110 H 07/04/22 14:00 Resp 16 07/04/22 14:00 BP 111/77 07/04/22 14:00 Pulse Ox 90 L 07/04/22 14:00 FiO2 60 07/04/22 14:00 Intake & Output 07/03/22 07/04/22 07/04/22 18:59 06:59 18:59 Intake Total 720 440 530 Output Total 1575 1000 2350 Balance -887 -560 -1820 Weight 76 kg Intake: IV 120 440 530 .9NS 120 90 80 Piperacillin-Tazobactam 3 100 100 .375 gm In Sodium Chloride 0.9% 100 ml @ 25 mls/hr IVPB Q8H [facility] Rx#: [id number] Vancomycin 1,250 mg In 250 250 Sodium Chloride 0.9% 250 ml @ 125 mls/hr IVPB Q8H [facility] Rx#:[id number] anidulafungin 100 Oral 600 Output: Urine 1575 1000 2350 Other: Voiding Method Urinal Urinal Urinal # Voids 1 # Bowel Movements 1 1 1 - Constitutional General appearance: Present: average body habitus, mild distress - EENT Eyes: Present: anicteric sclerae, EOMI ENT: Present: hearing grossly normal - Respiratory Details: conversational dyspnea Respiratory: bilateral: diminished - Cardiovascular Rhythm: regular Heart sounds: normal: S1, S2 Abnormal Heart Sounds: Absent: systolic murmur, diastolic murmur, rub, S3 Gallop, S4 Gallop, click, other - Integumentary Integumentary: Present: normal - Neurologic Neurologic Comment(s): grossly intact - Musculoskeletal Musculoskeletal: Present: strength equal bilaterally - Psychiatric Psychiatric: Present: A&O x's 3, appropriate affect, intact judgment & insight - Labs CBC & Chem 7: 07/04/22 07:07 07/04/22 07:07 Labs: Abnormal Lab Results - Last 24 Hours (Table) 07/03/22 07/03/22 07/04/22 Range/Units 16:12 20:04 06:36 WBC (3.8-10.6) k/uL RBC (4.30-5.90) m/uL Hgb (13.0-17.5) gm/dL Hct (39.0-53.0) % MCHC (31.0-37.0) g/dL RDW (11.5-15.5) % Macrocytosis Sodium (137-145) mmol/L BUN (9-20) mg/dL Creatinine (0.66-1.25) mg/dL Glucose (74-99) mg/dL POC Glucose (mg/dL) 151 H 155 H 137 H (70-110) mg/dL Calcium (8.4-10.2) mg/dL ALT (4-49) U/L Total Protein (6.3-8.2) g/dL Albumin (3.5-5.0) g/dL 07/04/22 07/04/22 07/04/22 Range/Units 07:07 07:07 11:38 WBC 19.9 H (3.8-10.6) k/uL RBC 3.58 L (4.30-5.90) m/uL Hgb 10.8 L (13.0-17.5) gm/dL Hct 35.5 L (39.0-53.0) % MCHC 30.4 L (31.0-37.0) g/dL RDW 26.7 H (11.5-15.5) % Macrocytosis Marked A Sodium 135 L (137-145) mmol/L BUN 24 H (9-20) mg/dL Creatinine 0.58 L (0.66-1.25) mg/dL Glucose 114 H (74-99) mg/dL POC Glucose (mg/dL) 168 H (70-110) mg/dL Calcium 8.2 L (8.4-10.2) mg/dL ALT 67 H (4-49) U/L Total Protein 5.8 L (6.3-8.2) g/dL Albumin 3.3 L (3.5-5.0) g/dL Assessment and Plan (1) Small cell lung cancer Current Visit: Yes Status: Acute Priority: High Code(s): C34.90 - MALIGNANT NEOPLASM OF UNSP PART OF UNSP BRONCHUS OR LUNG SNOMED Code(s): 699320185 Plan: Small cell lung cancer: -Completed 3rd cycle of Carbo-PET NUTRITION SPECIALIST on 05/30-06/01 with addition of GCSF, given 06/02. XRT treatment is complete. Treatment currently delayed to low counts and hospital admissions. -Plan was to hold treatment and reassess in 2 weeks. If pt doing better then may consider completing last cycle of chemo, possibly dose reduction. Mild anemia, chemo induced -Hgb 10.8, no acute intervention, will continue to monitor counts Shortness of breath at rest -Repeat CT chest showed no evidence of PE. Repeat Chest x-ray showed persistent course infiltrates bilaterally greater on the right. -Reports improvement in breathing today -Patient is being followed by pulmonology and infectious disease. Blood cultures negative. He is continued on IV steroids and scheduled DuoNeb treatments. Currently being treated with Zosyn, Levaquin, and Eraxis. -Will see how he progresses through this hospitalization, and reassess in outpatient setting once discharged to reassess patient prior to next chemo treatment. F/U appt in discharge plan attests: I have seen and examined pt, performed H&P, developed impression and plan of care. Discussed with dictator. Agree with documentation, dictated as a scribe.
[2022-07-04 16:15] LABS: Glucose,Whole Blood 151 mg/dL (70-110)
[2022-07-04 20:09] LABS: Glucose,Whole Blood 135 mg/dL (70-110)
[2022-07-04] MEDS: LORazepam 0.5 MG TAB PO PRN (20:35)
[2022-07-04] MEDS: LINEZOLID 600 MG TAB PO SCH (20:35)
[2022-07-04] MEDS: ATORVASTATIN 80 MG TAB PO SCH (20:35)
[2022-07-05] MEDS: methylPREDNISolone SOD SUCCI 125 MG/2 ML VIAL IV SCH ×4 (00:02→18:11)
--- NOTE | 2022-07-05 00:08 | P.PN ---
Subjective Progress Note Date: 07/02/22 Patient is a 62-year-old male with a known history of COPD, small cell lung cancer and squamous cell lung cancer status post right lobectomy, chylothorax status post Pleurx catheter insertion and removal, pulmonary embolism and recent PET scan showing progression of the disease and is being treated with systemic chemotherapy and underwent radiation therapy presents to ER due to worsening shortness of breath. 07/02/2022 Patient is in the MICU. Currently on Airvo at 60 L and 60% FiO2. Patient. CT chest done yesterday showed COPD with advanced emphysema and pulmonary arterial hypertension. Redemonstrated soft tissue thickening posterior wall of the right lower lobe pulmonary artery branch and resulting mild luminal narrowing. Chronic thick-walled pleural fluid collection at the posterior right base. Groundglass changes throughout the lower lungs appear similar. Patient is being continued broad-spectrum antibiotics Levaquin Zosyn and vancomycin and also on Eraxis. Currently on IV steroids. Laboratory data showed WBC 14.7 hemoglobin 10.4, MCV 96.2 and platelets 262 sodium 133 potassium 3.9 chloride 101 bicarb is 27 BUN 29 and creatinine 0.58 and calcium 7.9. Current medications reviewed. Objective - Vital Signs Vital signs: Vital Signs Temp 97.8 F 07/02/22 20:00 Pulse 104 H 07/02/22 21:00 Resp 22 07/02/22 21:00 BP 116/81 07/02/22 21:00 Pulse Ox 91 L 07/02/22 21:00 FiO2 60 07/02/22 20:00 Intake & Output 07/02/22 07/02/22 07/03/22 06:59 18:59 06:59 Intake Total 720 920 30 Output Total 2250 950 350 Balance -1530 -30 -320 Weight 70.5 kg Intake: IV 720 120 30 .9NS 120 120 30 Piperacillin-Tazobactam 3 100 .375 gm In Sodium Chloride 0.9% 100 ml @ 25 mls/hr IVPB Q8H [facility] Rx#: [id number] Vancomycin 1,250 mg In 500 Sodium Chloride 0.9% 250 ml @ 125 mls/hr IVPB Q8H [facility] Rx#:[id number] Oral 800 Output: Urine 2250 950 350 Other: Voiding Method Urinal Urinal # Voids 1 1 # Bowel Movements 1 - Exam PHYSICAL EXAMINATION: Patient is lying in the bed comfortably, no acute distress, awake alert and oriented.. HEENT: Normocephalic. Neck is supple. Pupils reactive. Nostrils clear. Oral cavity is moist. Neck reveals no JVD, carotid bruits, or thyromegaly. CHEST EXAMINATION: Trachea is central. Symmetrical expansion. Bilateral decreased air movement and scattered crackles. No wheezing or rhonchi.. CARDIAC: Normal S1, S2 with no gallops. No murmurs ABDOMEN: Soft. Bowel sounds present. Nontender. No organomegaly. No abdominal bruits. Extremities: reveal no edema. No clubbing or cyanosis Neurologically awake, alert, oriented x3 with well-coordinated movements. No focal deficits noted Skin: No rash or skin lesions. Psychiatric: Coperative. Nonsuicidal, Musculoskeletal: No joint swelling or deformity. Normal range of motion. - Labs CBC & Chem 7: 07/04/22 07:07 07/04/22 07:07 Labs: Abnormal Lab Results - Last 24 Hours (Table) 07/02/22 07/02/22 07/02/22 Range/Units 06:38 10:17 10:17 WBC 14.7 H (3.8-10.6) k/uL RBC 3.49 L (4.30-5.90) m/uL Hgb 10.4 L (13.0-17.5) gm/dL Hct 33.6 L (39.0-53.0) % RDW 26.5 H (11.5-15.5) % Neutrophils # 13.4 H (1.3-7.7) k/uL Lymphocytes # 0.4 L (1.0-4.8) k/uL Macrocytosis Marked A Sodium 133 L (137-145) mmol/L BUN 29 H (9-20) mg/dL Creatinine 0.58 L (0.66-1.25) mg/dL Glucose 182 H (74-99) mg/dL POC Glucose (mg/dL) 154 H (70-110) mg/dL Calcium 7.9 L (8.4-10.2) mg/dL 07/02/22 07/02/22 07/02/22 Range/Units 11:31 16:30 20:09 WBC (3.8-10.6) k/uL RBC (4.30-5.90) m/uL Hgb (13.0-17.5) gm/dL Hct (39.0-53.0) % RDW (11.5-15.5) % Neutrophils # (1.3-7.7) k/uL Lymphocytes # (1.0-4.8) k/uL Macrocytosis Sodium (137-145) mmol/L BUN (9-20) mg/dL Creatinine (0.66-1.25) mg/dL Glucose (74-99) mg/dL POC Glucose (mg/dL) 199 H 158 H 153 H (70-110) mg/dL Calcium (8.4-10.2) mg/dL Microbiology - Last 24 Hours (Table) 06/26/22 13:25 Blood Culture - Final Blood No Growth after 144 hours 06/26/22 13:25 Blood Culture - Final Blood No Growth after 144 hours Assessment and Plan Assessment: Acute right lower lobe pneumonia pneumonia Acute hypoxic respiratory failure currently requiring high flow oxygen via AIRVO Advanced COPD and chronic hypoxic respiratory failure on 2 L oxygen at home. Squamous cell carcinoma and small cell lung cancer status post right lower lobe resection and on chemotherapy and completed radiation therapy. History of PE History of right chylothorax status post Pleurx catheter placement and removal Generalized weakness Coronary with history of stent placement DVT prophylaxis patient is already on anticoagulation Plan: Patient will be continued on high flow oxygen Currently on broad-spectrum antibiotics, Eraxis and IV steroids. On DuoNebs and Pulmicort, Perforomist. Anticoagulation with Eliquis Blood cultures negative. ID and pulmonary is on board. DVT prophylaxis on Protonix. Continue to follow closely. Prognosis is guarded at this time. Time with Patient: Greater than 30
--- NOTE | 2022-07-05 00:13 | P.PN ---
Subjective Progress Note Date: 07/03/22 Patient is a 62-year-old male with a known history of COPD, small cell lung cancer and squamous cell lung cancer status post right lobectomy, chylothorax status post Pleurx catheter insertion and removal, pulmonary embolism and recent PET scan showing progression of the disease and is being treated with systemic chemotherapy and underwent radiation therapy presents to ER due to worsening shortness of breath. 07/02/2022 Patient is in the MICU. Currently on Airvo at 60 L and 60% FiO2. Patient. CT chest done yesterday showed COPD with advanced emphysema and pulmonary arterial hypertension. Redemonstrated soft tissue thickening posterior wall of the right lower lobe pulmonary artery branch and resulting mild luminal narrowing. Chronic thick-walled pleural fluid collection at the posterior right base. Groundglass changes throughout the lower lungs appear similar. Patient is being continued broad-spectrum antibiotics Levaquin Zosyn and vancomycin and also on Eraxis. Currently on IV steroids. Laboratory data showed WBC 14.7 hemoglobin 10.4, MCV 96.2 and platelets 262 sodium 133 potassium 3.9 chloride 101 bicarb is 27 BUN 29 and creatinine 0.58 and calcium 7.9. 07/03/2022 Patient remains in the MICU. Currently on 60 L at FiO2 60%. Sitting which is comfortable. Awake alert and oriented x3. No complaints of chest pain or worsening shortness of breath. No cough or sputum production. Patient remains on broad-spectrum antibiotics and Eraxis. Also on anticoagulation with Eliquis. Continued on IV steroids and DuoNebs. Patient also on IV Lasix 20 mg daily. Laboratory data showed creatinine level 0.58 and blood sugar is controlled. ID and pulmonary is on board. Current medications reviewed. Objective - Vital Signs Vital signs: Vital Signs Temp 97.5 F L 07/03/22 20:00 Pulse 101 H 07/03/22 22:00 Resp 15 07/03/22 22:00 BP 128/84 07/03/22 22:00 Pulse Ox 93 L 07/03/22 22:00 FiO2 55 07/03/22 20:00 Intake & Output 07/03/22 07/03/22 07/04/22 06:59 18:59 06:59 Intake Total 470 720 40 Output Total 850 1575 450 Balance -380 -855 -410 Weight 71.4 kg Intake: IV 470 120 40 .9NS 120 120 40 Piperacillin-Tazobactam 3 100 .375 gm In Sodium Chloride 0.9% 100 ml @ 25 mls/hr IVPB Q8H [facility] Rx#: [id number] Vancomycin 1,250 mg In 250 Sodium Chloride 0.9% 250 ml @ 125 mls/hr IVPB Q8H [facility] Rx#:[id number] Oral 600 Output: Urine 850 1575 450 Other: Voiding Method Urinal Urinal Urinal # Voids 1 # Bowel Movements 1 - Exam PHYSICAL EXAMINATION: Patient is lying in the bed comfortably, no acute distress, awake alert and oriented.. HEENT: Normocephalic. Neck is supple. Pupils reactive. Nostrils clear. Oral cavity is moist. Neck reveals no JVD, carotid bruits, or thyromegaly. CHEST EXAMINATION: Trachea is central. Symmetrical expansion. Bilateral decreased air movement and scattered crackles. No wheezing or rhonchi.. CARDIAC: Normal S1, S2 with no gallops. No murmurs ABDOMEN: Soft. Bowel sounds present. Nontender. No organomegaly. No abdominal bruits. Extremities: reveal no edema. No clubbing or cyanosis Neurologically awake, alert, oriented x3 with well-coordinated movements. No focal deficits noted Skin: No rash or skin lesions. Psychiatric: Coperative. Nonsuicidal, Musculoskeletal: No joint swelling or deformity. Normal range of motion. - Labs CBC & Chem 7: 07/04/22 07:07 07/04/22 07:07 Labs: Abnormal Lab Results - Last 24 Hours (Table) 07/03/22 07/03/22 07/03/22 Range/Units 06:21 06:25 11:32 Creatinine 0.58 L (0.66-1.25) mg/dL POC Glucose (mg/dL) 182 H 160 H (70-110) mg/dL 07/03/22 07/03/22 Range/Units 16:12 20:04 Creatinine (0.66-1.25) mg/dL POC Glucose (mg/dL) 151 H 155 H (70-110) mg/dL Assessment and Plan Assessment: Acute right lower lobe pneumonia pneumonia. Repeat CT chest showed improvement in the right lower lobe pneumonia and loculated right-sided pleural effusion and extensive emphysematous/bullous changes and mediastinal lymphadenopathy Acute hypoxic respiratory failure currently requiring high flow oxygen via AIRVO Advanced COPD and chronic hypoxic respiratory failure on 2 L oxygen at home. Squamous cell carcinoma and small cell lung cancer status post right lower lobe resection and on chemotherapy and completed radiation therapy. History of PE History of right chylothorax status post Pleurx catheter placement and removal Generalized weakness Coronary with history of stent placement DVT prophylaxis patient is already on anticoagulation Plan: Patient will be continued on high flow oxygen Currently on broad-spectrum antibiotics, Eraxis and IV steroids. On DuoNebs and Pulmicort, Perforomist. Anticoagulation with Eliquis Blood cultures negative. ID and pulmonary is on board. DVT prophylaxis on Protonix. Continue to follow closely. Prognosis is guarded at this time. Time with Patient: Greater than 30
--- NOTE | 2022-07-05 00:16 | P.PN ---
Subjective Progress Note Date: 07/04/22 Patient is a 62-year-old male with a known history of COPD, small cell lung cancer and squamous cell lung cancer status post right lobectomy, chylothorax status post Pleurx catheter insertion and removal, pulmonary embolism and recent PET scan showing progression of the disease and is being treated with systemic chemotherapy and underwent radiation therapy presents to ER due to worsening shortness of breath. 07/02/2022 Patient is in the MICU. Currently on Airvo at 60 L and 60% FiO2. Patient. CT chest done yesterday showed COPD with advanced emphysema and pulmonary arterial hypertension. Redemonstrated soft tissue thickening posterior wall of the right lower lobe pulmonary artery branch and resulting mild luminal narrowing. Chronic thick-walled pleural fluid collection at the posterior right base. Groundglass changes throughout the lower lungs appear similar. Patient is being continued broad-spectrum antibiotics Levaquin Zosyn and vancomycin and also on Eraxis. Currently on IV steroids. Laboratory data showed WBC 14.7 hemoglobin 10.4, MCV 96.2 and platelets 262 sodium 133 potassium 3.9 chloride 101 bicarb is 27 BUN 29 and creatinine 0.58 and calcium 7.9. 07/03/2022 Patient remains in the MICU. Currently on 60 L at FiO2 60%. Sitting which is comfortable. Awake alert and oriented x3. No complaints of chest pain or worsening shortness of breath. No cough or sputum production. Patient remains on broad-spectrum antibiotics and Eraxis. Also on anticoagulation with Eliquis. Continued on IV steroids and DuoNebs. Patient also on IV Lasix 20 mg daily. Laboratory data showed creatinine level 0.58 and blood sugar is controlled. ID and pulmonary is on board. 07/04/2022 Patient is in the MICU. Currently on high flow oxygen 60 L at 55% FiO2. Awake alert and oriented x3. No complaints of chest pain. No fever no chills. Patient is being continued broad-spectrum antibiotics, vancomycin changed to Zyvox. Currently on Zosyn and Levaquin. Also on Eraxis Patient is being current on IV steroids and DuoNebs and Pulmicort inhalation. Also being continued Lasix 20 mg IV daily. Pulmonary and ID is on board.. Laboratory data showed WBC 19.9 hemoglobin 10.8 and platelets 265 sodium 135 potassium 4.4 chloride 102 bicarb is 29 BUN 24 and creatinine 0.58 and calcium 8.2. Albumin 3.3. Current medications reviewed. Objective - Vital Signs Vital signs: Vital Signs Temp 97.4 F L 07/04/22 20:00 Pulse 112 H 07/04/22 22:00 Resp 17 07/04/22 22:00 BP 122/86 07/04/22 22:00 Pulse Ox 95 07/04/22 22:00 FiO2 60 07/04/22 21:13 Intake & Output 07/04/22 07/04/22 07/05/22 06:59 18:59 06:59 Intake Total 440 670 40 Output Total 1000 3475 100 Balance -560 -2805 -60 Weight 76 kg Intake: IV 440 670 40 .9NS 90 120 40 Piperacillin-Tazobactam 3 100 200 .375 gm In Sodium Chloride 0.9% 100 ml @ 25 mls/hr IVPB Q8H [facility] Rx#: [id number] Vancomycin 1,250 mg In 250 250 Sodium Chloride 0.9% 250 ml @ 125 mls/hr IVPB Q8H [facility] Rx#:[id number] anidulafungin 100 Output: Urine 1000 3475 100 Other: Voiding Method Urinal Urinal Urinal # Bowel Movements 1 1 - Exam PHYSICAL EXAMINATION: Patient is lying in the bed comfortably, no acute distress, awake alert and oriented.. HEENT: Normocephalic. Neck is supple. Pupils reactive. Nostrils clear. Oral cavity is moist. Neck reveals no JVD, carotid bruits, or thyromegaly. CHEST EXAMINATION: Trachea is central. Symmetrical expansion. Bilateral decreased air movement and scattered crackles. No wheezing or rhonchi.. CARDIAC: Normal S1, S2 with no gallops. No murmurs ABDOMEN: Soft. Bowel sounds present. Nontender. No organomegaly. No abdominal bruits. Extremities: reveal no edema. No clubbing or cyanosis Neurologically awake, alert, oriented x3 with well-coordinated movements. No focal deficits noted Skin: No rash or skin lesions. Psychiatric: Coperative. Nonsuicidal, Musculoskeletal: No joint swelling or deformity. Normal range of motion. - Labs CBC & Chem 7: 07/04/22 07:07 07/04/22 07:07 Labs: Abnormal Lab Results - Last 24 Hours (Table) 07/04/22 07/04/22 07/04/22 Range/Units 06:36 07:07 07:07 WBC 19.9 H (3.8-10.6) k/uL RBC 3.58 L (4.30-5.90) m/uL Hgb 10.8 L (13.0-17.5) gm/dL Hct 35.5 L (39.0-53.0) % MCHC 30.4 L (31.0-37.0) g/dL RDW 26.7 H (11.5-15.5) % Macrocytosis Marked A Sodium 135 L (137-145) mmol/L BUN 24 H (9-20) mg/dL Creatinine 0.58 L (0.66-1.25) mg/dL Glucose 114 H (74-99) mg/dL POC Glucose (mg/dL) 137 H (70-110) mg/dL Calcium 8.2 L (8.4-10.2) mg/dL ALT 67 H (4-49) U/L Total Protein 5.8 L (6.3-8.2) g/dL Albumin 3.3 L (3.5-5.0) g/dL 07/04/22 07/04/22 07/04/22 Range/Units 11:38 16:13 20:08 WBC (3.8-10.6) k/uL RBC (4.30-5.90) m/uL Hgb (13.0-17.5) gm/dL Hct (39.0-53.0) % MCHC (31.0-37.0) g/dL RDW (11.5-15.5) % Macrocytosis Sodium (137-145) mmol/L BUN (9-20) mg/dL Creatinine (0.66-1.25) mg/dL Glucose (74-99) mg/dL POC Glucose (mg/dL) 168 H 151 H 135 H (70-110) mg/dL Calcium (8.4-10.2) mg/dL ALT (4-49) U/L Total Protein (6.3-8.2) g/dL Albumin (3.5-5.0) g/dL Assessment and Plan Assessment: Acute right lower lobe pneumonia pneumonia. Repeat CT chest showed improvement in the right lower lobe pneumonia and loculated right-sided pleural effusion and extensive emphysematous/bullous changes and mediastinal lymphadenopathy Acute hypoxic respiratory failure currently requiring high flow oxygen via AIRVO Advanced COPD and chronic hypoxic respiratory failure on 2 L oxygen at home. Squamous cell carcinoma and small cell lung cancer status post right lower lobe resection and on chemotherapy and completed radiation therapy. History of PE History of right chylothorax status post Pleurx catheter placement and removal Generalized weakness Coronary with history of stent placement DVT prophylaxis patient is already on anticoagulation Plan: Patient will be continued on high flow oxygen at 60 L and 50% FiO2. Currently on broad-spectrum antibiotics, Eraxis and IV steroids. On DuoNebs and Pulmicort, Perforomist. Anticoagulation with Eliquis Blood cultures negative. ID and pulmonary is on board. DVT prophylaxis on Protonix. Continue to follow closely. Prognosis is guarded at this time. Time with Patient: Greater than 30
[2022-07-05] MEDS: PIPERACILLIN-TAZOBACTAM 3.375 GM in SODIUM CHLORIDE 0.9% 100 ML IVPB SCH ×3 (02:27→18:11)
[2022-07-05 05:55] LABS: Anisocytosis Marked; HCT 36.1 % (39.0-53.0); HGB 11.2 gm/dL (13.0-17.5); Hypochromasia Moderate; MCH 30.5 pg (25.0-35.0); MCV 98.4 fL (80.0-100.0); Mean Platelet Volume 7.3; Platelet Count 235 k/uL (150-450); Poikilocytosis Slight; RBC 3.66 m/uL (4.30-5.90); WBC 17.2 k/uL (3.8-10.6)
[2022-07-05 06:05] LABS: African American GFR (CKD) >90 (>60 ml/min/1.73 sqM); Anion Gap 3 mmol/L; Blood Urea Nitrogen 24 mg/dL (9-20); Calcium 8.1 mg/dL (8.4-10.2); Carbon Dioxide 28 mmol/L (22-30); Chloride 101 mmol/L (98-107); Glucose 128 mg/dL (74-99); Non-African American GFR(CKD) >90 (>60 ml/min/1.73 sqM); Potassium 4.6 mmol/L (3.5-5.1); Sodium 132 mmol/L (137-145)
[2022-07-05 06:18] LABS: Macrocytosis Marked; RDW 26.5 % (11.5-15.5)
[2022-07-05 06:36] LABS: Glucose,Whole Blood 130 mg/dL (70-110)
[2022-07-05] MEDS: INSULIN ASPART (NovoLOG) 100 UNIT/ML VIAL SQ SCH ×4 (06:45→20:21)
[2022-07-05] MEDS: PANTOPRAZOLE 40 MG TABLET PO SCH (06:46)
[2022-07-05] MEDS: BUDESONIDE 1 MG/2 ML NEBU INHALATION SCH ×2 (07:28→20:17)
[2022-07-05] MEDS: IPRATROPIUM-ALBUTEROL 3 ML NEB INHALATION SCH ×3 (07:28→15:12)
[2022-07-05] MEDS: FORMOTEROL FUMARATE 20 MCG/2 ML NEBU INHALATION SCH ×2 (07:28→20:17)
[2022-07-05] MEDS ORDERED: VANCOMYCIN TROUGH DUE 1 EACH MISC MISCELLANE ONE (10:00)
[2022-07-05] MEDS: APIXABAN 5 MG TAB PO SCH ×2 (10:08→20:04)
[2022-07-05] MEDS: LEVOFLOXACIN 750 MG TAB PO SCH (10:08)
[2022-07-05] MEDS: MAG HYDROX/AL HYDROX/SIMETH 30 ML, LIDOCAINE VISCOUS 2% 30 ML, diphenhydrAMINE ELIXIR 7... PO SCH ×12 (10:09→20:20)
[2022-07-05] MEDS: MULTIVITAMINS, THERA 1 EACH TAB PO SCH (10:09)
[2022-07-05] MEDS: LINEZOLID 600 MG TAB PO SCH ×2 (10:09→20:03)
[2022-07-05] MEDS: METOPROLOL TARTRATE 12.5 MG TAB PO SCH ×2 (10:09→20:04)
[2022-07-05] MEDS: FUROSEMIDE 10 MG/ML 2 ML VIAL IV SCH (10:10)
[2022-07-05 12:02] LABS: Glucose,Whole Blood 146 mg/dL (70-110)
--- NOTE | 2022-07-05 12:12 | P.PN ---
Subjective Progress Note Date: 07/05/22 Principal diagnosis: Pneumonia Patient is a 62-year-old male with a past medical history significant for emphysema chronic smoker and also small cell lung cancer as well as squamous cell cancer of the lung status post right lower lobectomy postop course complicated by chylothorax for the Pleurx catheter has been placed also with a history of PE, patient presented to the hospital with increasing shortness of breath and hypoxemia CT with evidence of extensive infiltrate right lower lobe and loculated effusion. On today's evaluation that is 07/05/2022, patient remains to be afebrile, the patient is breathing slightly comfortably and FiO2 is currently stable at 60 % apparently the patient required nonrebreather yesterday per the nursing staff , the patient continued to have cough but denies any worsening or any purulent secretions, no nausea no vomiting no abdominal pain or diarrhea Objective - Vital Signs Vital signs: Vital Signs Temp 98.3 F 07/05/22 08:00 Pulse 101 H 07/05/22 11:00 Resp 28 H 07/05/22 11:00 BP 117/80 07/05/22 11:00 Pulse Ox 95 07/05/22 11:00 FiO2 60 07/05/22 08:00 Intake & Output 07/04/22 07/05/22 07/05/22 18:59 06:59 18:59 Intake Total 670 220 641 Output Total 3475 800 0 Balance -2805 -580 641 Weight 75 kg Intake: IV 670 220 41 .9NS 120 120 41 Piperacillin-Tazobactam 3 200 100 .375 gm In Sodium Chloride 0.9% 100 ml @ 25 mls/hr IVPB Q8H [facility] Rx#: [id number] Vancomycin 1,250 mg In 250 Sodium Chloride 0.9% 250 ml @ 125 mls/hr IVPB Q8H [facility] Rx#:[id number] anidulafungin 100 Oral 600 Output: Urine 3475 800 0 Other: Voiding Method Urinal Urinal Urinal # Bowel Movements 1 - Exam GENERAL DESCRIPTION: A middle-age male up in the chair in no distress RESPIRATORY SYSTEM: Unlabored breathing , coarse breath sounds bilaterally HEART: S1 S2 regular rate and rhythm , ABDOMEN: Soft , no tenderness EXTREMITIES: No edema feet - Labs CBC & Chem 7: 07/05/22 05:19 07/05/22 05:19 Labs: Abnormal Lab Results - Last 24 Hours (Table) 07/04/22 07/04/22 07/04/22 Range/Units 11:38 16:13 20:08 WBC (3.8-10.6) k/uL RBC (4.30-5.90) m/uL Hgb (13.0-17.5) gm/dL Hct (39.0-53.0) % RDW (11.5-15.5) % Macrocytosis Sodium (137-145) mmol/L BUN (9-20) mg/dL Creatinine (0.66-1.25) mg/dL Glucose (74-99) mg/dL POC Glucose (mg/dL) 168 H 151 H 135 H (70-110) mg/dL Calcium (8.4-10.2) mg/dL 07/05/22 07/05/22 07/05/22 Range/Units 05:19 05:19 06:35 WBC 17.2 H (3.8-10.6) k/uL RBC 3.66 L (4.30-5.90) m/uL Hgb 11.2 L (13.0-17.5) gm/dL Hct 36.1 L (39.0-53.0) % RDW 26.5 H (11.5-15.5) % Macrocytosis Marked A Sodium 132 L (137-145) mmol/L BUN 24 H (9-20) mg/dL Creatinine 0.64 L (0.66-1.25) mg/dL Glucose 128 H (74-99) mg/dL POC Glucose (mg/dL) 130 H (70-110) mg/dL Calcium 8.1 L (8.4-10.2) mg/dL Assessment and Plan (1) Pneumonia Current Visit: Yes Status: Acute Code(s): J18.9 - PNEUMONIA, UNSPECIFIED ORGANISM SNOMED Code(s): 472333026 Plan: 1patient presented to hospital with increasing shortness of breath which is likely multifactorial in this patient who do have a history of emphysema also with a history of lung cancer now with evidence of right-sided loculated fluid concerning for possible empyema and has been in and out of the hospital we will need to cover for resistant gram-positive as well as gram-negative. 2we will try to obtain sputum for Gram stain and culture , the patient pro calcitonin came back as 0.06 which is normal 3patient did have minimal clinical improvement and patient did have a repeat CT chest completed on 07/01/2022 also showed some improvement 4-patient to continue with Zosyn and Zyvox , repeat a sputum culture Time with Patient: Less than 30
[2022-07-05] MEDS: ANIDULAFUNGIN 100 MG in SODIUM CHLORIDE 0.9% 100 ML IVPB SCH (12:18)
--- NOTE | 2022-07-05 12:38 | XR ---
EXAMINATION TYPE: XR chest 1V portable DATE OF EXAM: 07/05/2022 COMPARISON: Chest x-ray from 07/04/2022 HISTORY: Dyspnea TECHNIQUE: Single frontal view of the chest is obtained. FINDINGS: Right lung base large area of consolidation appears to be improving. There is right costop hrenic angle blunting unchanged compared to prior examination. Advanced COPD changes are noted. Slightly increased interstitial markings are likely chronic. There is no pneumothorax. Heart and mediastinum are midline and within normal limits. IMPRESSION: Right lower lobe infiltrate appears to be getting better. Left-sided increased opacity m ay be chronic. Pleural effusion is suspected. Repeat CT scan of the chest are ultrasound of the right lower lung zones may be considered for further evaluation of the pleural effusion.
--- NOTE | 2022-07-05 13:57 | P.PN ---
Subjective Progress Note Date: 07/05/22 Principal diagnosis: Acute hypoxic respiratory failure, multifactorial. A 62-year-old male patient with severe bullous emphysema, a chronic smoker is more than [id number] smoking history. 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 Postop course was complicated by development of chylothorax for which a Pleurx catheter was inserted and ultimately this was removed. His postop course was also complicated by development of pulmonary embolism and the patient was treated with anticoagulants and the patient continues to be on anti-coagulation with Eliquis. PET/CT that was done on 03/18/2022 showed progression of his disease with increase in the size and the metabolic activity of the mediastinal mass/lymphadenopathy. Based on that, the patient was started on treatment and the patient was given systemic chemotherapy with a combination of carboplatinum and [employer]-16. He also completed radiation therapy. Since then, the patient's health has been in generally getting worse. He was hospitalized back in early June with worsening shortness of breath. At that time, he was having issues related to chemotherapy toxicity with pancytopenia. He was quite leukopenic and he was also anemic. His platelet count also dropped. During his hospital stay, the patient gradually improved and he was ultimately discharged home on oxygen. During his hospital stay, he also had a transient ischemic attack with some left-sided weakness. And neuro workup was done including a CT angiogram of the brain that showed no acute abnormalities. The patient ultimately recovered and he was started on aspirate 1 mg by mouth daily. Anti-coagulation was resumed. During this current hospitalization admission, the patient noticed that he was getting more hypoxic. Even with limited amount of activity, his pulse ox was dropping and his oxygen requirements gradually we will going up and he was using 5 L oxygen by nasal cannula. He decided to come into the hospital because of worsening shortness of breath. In the emergency, the patient was found to be quite short of breath. He had minimal amount of sputum production. No fever or chills. No reported chest pain. He was quite dyspneic. No altered mentation. Immediately, a CT angiogram was done and this rules out the possibility of pulmonary embolism. There was new areas of infiltration of the right lower lobe compared to the previous CAT scan and there was also tumor encasement of the right pulmonary artery on the posterior wall. There was also tumor encasement of the right lower lobe pulmonary vein and there was bilateral enlarged lymph nodes at the level of the abdirizak. The mass and the lymphadenopathy appears to have increased in size compared to the earlier examination. This is based on the radiologist's report. Patient is currently on high flow oxygen at 10 L in addition to a nonrebreather facemask. His current pulse ox 100%. WBC count is at 8 with a hemoglobin 9.2 and a platelet count of 188. Normal coagulation profile. D-dimer is at 1.27. Influenza screen, Covid 19 screen and RSV were all negative. He was started on IV Solu-Medrol. Is on DuoNeb about treatments [id number]. He was also started on IV cefepime and vancomycin is to be added. No major swelling in the lower extremities bilaterally. Today's evaluation of 06/28/2022, the patient is currently in the intensive care unit currently on high flow oxygen at 60 L with an FiO2 of 90%. He seems a more comfortable compared to yesterday. Breathing is less labored and his pulse ox is around 96-98%. Chest x-ray still showing bilateral pulmonary infiltrates most on the right lung and there is some infiltration of the left. Based on his immunosuppression frequent hospitalizations, the patient was started on a combination of cefepime and vancomycin. Currently is afebrile. He is hemodynamically stable. Cardiac rhythm is sinus. His echoes at 15.7 with a hemoglobin of 8.1 and a platelet count of 189. Sodium is at 139 with a potassium level of 3.9. BUN is at 70 with a creatinine of 0.5. Pro-calcitonin level is still pending. LFTs are mildly elevated with an AST of 61, ALT of 81, alkaline phosphatase of 92. His albumin level is at 2.7. No major swelling in lower extremities. Remains on anticoagulants with Eliquis. Remains on bronchodilators. Remains on IV Solu-Medrol 60 mg every 6 hours 06/29/2022, the patient is being seen for a follow-up. Remains on high flow oxygen with 60 L with an FiO2 of 80%. Chest x-ray findings of essentially unchanged. Bilateral pulmonary infiltrates worse on the right and the patient also has a chronic right-sided pleural effusion. In terms of antibiotic coverage, he is on a combination of cefepime and vancomycin for now. His pro calcitonin level was 0.06. He remains on bronchodilators. He remains on steroids. He is using the incentive spirometer and falling approximately 2000. In terms of his white count, he is white count is at 12.5 with a hemoglobin 8.3 and a platelet count of 213. Sodium is at 135, potassium is 4.7, BUN 19 and a creatinine of 0.6. Cultures are all negative including sputum and blood. His viral screen was also negative. His breathing is still labored. He desaturates upon talking. Nevertheless, one breathing through his nose, is able to maintain a saturation above 90%. His current pulse ox is around 93%. No significant tachycardia. Mild tachypnea. He is not using it is a muscle breathing. He is tolerating his diet for now. Extreme 2022, the patient is on high flow oxygen at 5 L with an FiO2 of 70%. Remains on broad-spectrum antibiotic and antifungal agents. He is currently on a combination of Zosyn, vancomycin, Levaquin and Eraxis. No positive cultures. Chest x-ray findings of essentially unchanged. The pro-calcitonin level was low. No blood work from today. The blood work from yesterday was noted. He is supposed to have a CBC and a basic metabolic profile. His speech is improved. Is able to speak longer sentences. His pulse ox is around 91-92% on the above-mentioned settings. He remains on IV steroids. Fluid balance has been in the order of 930 mL negative. The patient is tolerating diet. No aspiration. Legionella urine antigen came back negative. 07/01/2022, the patient remains on high flow oxygen at 60 L an FiO2 of 60%. He desaturates rather easily. Chest x-ray findings of essentially unchanged. Clinically unchanged and the patient is not showing any significant progress over the past few days. Meanwhile, he is on a broad-spectrum antibiotic co verage and the patient is currently on IV Zosyn, IV vancomycin, IV Eraxis, and by mouth Levaquin. He is afebrile. He is hemodynamically stable. His WBC count of 15.8 with a hemoglobin of 8.9. BUN is at 24 with a creatinine of 0.7 and a sodium level is at 134. Mental status is adequate. Moving all 4 extremities. Using the senna spirometer. 07/02/2022, patient remains on high flow oxygen. He remains on 60 L with an FiO2 of 60%. Based on his ongoing issues with oxygen desaturation, I repeated his CAT scan of the chest. I reviewed the CAT scan and as expected the patient has advanced emphysema with diffuse COPD changes throughout the lung gleason bilaterally. There is also some narrowing in the pulmonary artery branches and this favored chronic thromboemboli involving the right lower lobe pulmonary artery branches. There is an area of large fluid collection which is chronic measuring 10 x 3.6 cm in size in the posterior right lung base. There is also residual but improving airspace disease in the right midlung suggestive of an improving pneumonia. There is also evidence of mediastinal lymphadenopathy consistent with his underlying history of small cell lung cancer. As such, there is some limited improvement in his pneumonia. There is also chronic thromboemboli involving the right lower lobe pulmonary artery branch. The patient continues to be on broad-spectrum antibiotics. He is currently receiving a combination of antibiotics including Eraxis, Zosyn, Levaquin and vancomycin. He remains on IV Solu-Medrol 60 mg every 6 hours. Cultures are all negative. In terms of his blood work, there are all pending from today. His vancomycin trough level is at 18. He is sitting up on a chair. His pulse ox is 88% on the current high flow settings. He desaturates easily. However he does recover. Mental status is adequate. His tolerating his diet. Reevaluated today on 07/04/2022, patient remains in the ICU, maintained on a nonrebreather mask, airvo at 60 L and 55% FiO2. Patient is maximized on antibiotics and antifungal he is on Zosyn and Levaquin and vancomycin and Eraxis these are being addressed by infectious disease on the case. Clinically the patient is marginal at best, if he does not improve, may require intubation and mechanical ventilation. Continues to have leukocytosis with WBC of 19.9 hemoglobin 10.80 left lites are normal renal profile is normal. 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 Remains on antibiotics as per infectious disease on the case, no major issues over the last 24 hours. WBC count is 17.2 hemoglobin 11.2 in left lites are normal renal profile is normal chest x-ray continues to show definite infiltrate in the right lower lung, left sided infiltrate opacities seems to be chronic and slightly increased. Chronic small right-sided pleural effusion remains about the Objective - Vital Signs Vital signs: Vital Signs Temp 98.3 F 07/05/22 08:00 Pulse 103 H 07/05/22 11:40 Resp 28 H 07/05/22 11:00 BP 117/80 07/05/22 11:00 Pulse Ox 95 07/05/22 11:00 FiO2 60 07/05/22 11:30 Intake & Output 07/04/22 07/05/22 07/05/22 18:59 06:59 18:59 Intake Total 670 220 641 Output Total 3475 800 0 Balance -2805 -580 641 Weight 75 kg Intake: IV 670 220 41 .9NS 120 120 41 Piperacillin-Tazobactam 3 200 100 .375 gm In Sodium Chloride 0.9% 100 ml @ 25 mls/hr IVPB Q8H BHAVNA Rx#: [id number] Vancomycin 1,250 mg In 250 Sodium Chloride 0.9% 250 ml @ 125 mls/hr IVPB Q8H BHAVNA Rx#:[id number] anidulafungin 100 Oral 600 Output: Urine 3475 800 0 Other: Voiding Method Urinal Urinal Urinal # Bowel Movements 1 - Exam Physical Exam: Revealed a 62-year-old white male in no distress, on airvo 60% FiO2 and 60 L flow Head: Atraumatic, normocephalic. HEENT:[Neck is supple.] [No neck masses.] [No thyromegaly.] [No JVD.] Chest: Minimal crackles at the bases no rhonchi and no wheezes Cardiac Exam: [Normal S1 and S2, no S3 gallop, no murmur.] Abdomen: [Soft, nontender, no megaly, no rebound, no guarding, normal bowel sounds.] Extremities: [No clubbing, no edema, no cyanosis.] Neurological Exam: [No focal neurologic deficit.] Alert oriented 3. Psychiatric: Normal mood affect and normal mental status examination. Skin: No rashes - Labs CBC & Chem 7: 07/05/22 05:19 07/05/22 05:19 Labs: Abnormal Lab Results - Last 24 Hours (Table) 07/04/22 07/04/22 07/05/22 Range/Units 16:13 20:08 05:19 WBC 17.2 H (3.8-10.6) k/uL RBC 3.66 L (4.30-5.90) m/uL Hgb 11.2 L (13.0-17.5) gm/dL Hct 36.1 L (39.0-53.0) % RDW 26.5 H (11.5-15.5) % Macrocytosis Marked A Sodium (137-145) mmol/L BUN (9-20) mg/dL Creatinine (0.66-1.25) mg/dL Glucose (74-99) mg/dL POC Glucose (mg/dL) 151 H 135 H (70-110) mg/dL Calcium (8.4-10.2) mg/dL 07/05/22 07/05/22 07/05/22 Range/Units 05:19 06:35 12:01 WBC (3.8-10.6) k/uL RBC (4.30-5.90) m/uL Hgb (13.0-17.5) gm/dL Hct (39.0-53.0) % RDW (11.5-15.5) % Macrocytosis Sodium 132 L (137-145) mmol/L BUN 24 H (9-20) mg/dL Creatinine 0.64 L (0.66-1.25) mg/dL Glucose 128 H (74-99) mg/dL POC Glucose (mg/dL) 130 H 146 H (70-110) mg/dL Calcium 8.1 L (8.4-10.2) mg/dL Assessment and Plan Assessment: Impression: Acute hypoxic respiratory failure, multifactorial secondary to below Acute right lower lobe pneumonia, possibly hospital-acquired pneumonia Chronic right-sided pleural effusion and previous history of chylothorax. Unchanged in size. Advanced COPD. Underlying interstitial lung disease is to be considered. Squamous cell carcinoma requiring a right lower lobectomy T3 N0 M0 Small cell lung cancer with positive subcarinal nodes, patient finished chemotherapy and radiation therapy History of pulmonary embolism, remains on anticoagulation therapy is pulmonary embolism occurred following thoracotomy and right lower lobe resection Chemotherapy-induced leukopenia Chronic anemia, chemotherapy-induced. Generalized weakness and medical debility History of radiation esophagitis. History of chylothorax. History of underlying coronary artery disease with previous stent of LAD Recommendation: Continue oxygen and titrate accordingly Continue antibiotics as per ID on the case Continue bronchodilators Continue IV Solu-Medrol Continue diuretics and keep the patient in negative balance continue anticoagulation therapy/eliquis This down grading the patient to 3 S. Blood cultures remain negative Will continue to follow Time with Patient: Less than 30
[2022-07-05 16:46] LABS: Glucose,Whole Blood 139 mg/dL (70-110)
[2022-07-05] MEDS ORDERED: ALBUTEROL NEBULIZED 2.5 MG/3 ML INHALATION PRN (18:54)
[2022-07-05] MEDS ORDERED: IPRATROPIUM 0.5 MG/2.5 ML NEBU INHALATION PRN (18:54)
[2022-07-05] MEDS: ATORVASTATIN 80 MG TAB PO SCH (20:03)
[2022-07-05 20:15] LABS: Glucose,Whole Blood 143 mg/dL (70-110)
[2022-07-05] MEDS: ALBUTEROL NEBULIZED 2.5 MG/3 ML INHALATION SCH (20:17)
[2022-07-05] MEDS: IPRATROPIUM 0.5 MG/2.5 ML NEBU INHALATION SCH (20:18)
[2022-07-05] MEDS: LORazepam 0.5 MG TAB PO PRN (20:39)
[2022-07-06] MEDS: methylPREDNISolone SOD SUCCI 125 MG/2 ML VIAL IV SCH ×4 (06:23→17:59)
[2022-07-06] MEDS: PIPERACILLIN-TAZOBACTAM 3.375 GM in SODIUM CHLORIDE 0.9% 100 ML IVPB SCH ×3 (06:23→17:59)
[2022-07-06 06:41] LABS: Glucose,Whole Blood 129 mg/dL (70-110)
[2022-07-06] MEDS: INSULIN ASPART (NovoLOG) 100 UNIT/ML VIAL SQ SCH ×4 (06:41→21:01)
[2022-07-06] MEDS: PANTOPRAZOLE 40 MG TABLET PO SCH (06:42)
[2022-07-06] MEDS: ALBUTEROL NEBULIZED 2.5 MG/3 ML INHALATION SCH ×3 (08:24→17:02)
[2022-07-06] MEDS: IPRATROPIUM 0.5 MG/2.5 ML NEBU INHALATION SCH ×3 (08:24→17:02)
[2022-07-06] MEDS: FORMOTEROL FUMARATE 20 MCG/2 ML NEBU INHALATION SCH ×2 (08:24→19:52)
[2022-07-06] MEDS: BUDESONIDE 1 MG/2 ML NEBU INHALATION SCH ×2 (08:24→19:52)
--- NOTE | 2022-07-06 09:12 | XR ---
EXAMINATION TYPE: XR chest 1V portable DATE OF EXAM: 07/06/2022 COMPARISON: 07/05/2022 HISTORY: Shortness of breath TECHNIQUE: Single frontal view of the chest is obtained. FINDINGS: No significant change. Right basilar atelectasis/consolidation/pleural effusion is stable. Remainder of the lungs are clear. COPD changes are again noted. IMPRESSION: No significant change. Please see detailed report from yesterday.
[2022-07-06] MEDS: APIXABAN 5 MG TAB PO SCH ×2 (10:09→21:01)
[2022-07-06] MEDS: FUROSEMIDE 10 MG/ML 2 ML VIAL IV SCH (10:10)
[2022-07-06] MEDS: METOPROLOL TARTRATE 12.5 MG TAB PO SCH ×2 (10:10→21:01)
[2022-07-06] MEDS: LINEZOLID 600 MG TAB PO SCH ×2 (10:10→21:01)
[2022-07-06] MEDS: LEVOFLOXACIN 750 MG TAB PO SCH (10:10)
[2022-07-06] MEDS: MAG HYDROX/AL HYDROX/SIMETH 30 ML, LIDOCAINE VISCOUS 2% 30 ML, diphenhydrAMINE ELIXIR 7... PO SCH ×12 (10:11→21:01)
[2022-07-06] MEDS: MULTIVITAMINS, THERA 1 EACH TAB PO SCH (10:11)
[2022-07-06 10:54] LABS: Anisocytosis Marked; Basophils % (A) 0 %; Eosinophils % (A) 0 %; HCT 38.1 % (39.0-53.0); HGB 11.7 gm/dL (13.0-17.5); Hypochromasia Slight; Lymphocytes # (A) 0.3 k/uL (1.0-4.8); Lymphocytes % (A) 2 %; MCH 29.8 pg (25.0-35.0); MCHC 30.7 g/dL (31.0-37.0); MCV 96.9 fL (80.0-100.0); Macrocytosis Marked; Mean Platelet Volume 8.2; Monocytes # (A) 1.2 k/uL (0-1.0); Monocytes % (A) 6 %; Neutrophils # (A) 17.7 k/uL (1.3-7.7); Neutrophils % (A) 92 %; Platelet Count 254 k/uL (150-450); Poikilocytosis Slight; RBC 3.93 m/uL (4.30-5.90); WBC 19.3 k/uL (3.8-10.6)
[2022-07-06 11:12] LABS: African American GFR (CKD) >90 (>60 ml/min/1.73 sqM); Anion Gap 7 mmol/L; Blood Urea Nitrogen 27 mg/dL (9-20); Calcium 8.1 mg/dL (8.4-10.2); Carbon Dioxide 25 mmol/L (22-30); Chloride 102 mmol/L (98-107); Glucose 163 mg/dL (74-99); Magnesium 2.4 mg/dL (1.6-2.3); Non-African American GFR(CKD) >90 (>60 ml/min/1.73 sqM); Potassium 3.9 mmol/L (3.5-5.1); Sodium 134 mmol/L (137-145)
[2022-07-06 11:36] LABS: Glucose,Whole Blood 179 mg/dL (70-110)
--- NOTE | 2022-07-06 11:58 | P.PN ---
Subjective Progress Note Date: 07/06/22 Principal diagnosis: Acute hypoxic respiratory failure, multifactorial. A 62-year-old male patient with severe bullous emphysema, a chronic smoker is more than [id number] smoking history. 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 Postop course was complicated by development of chylothorax for which a Pleurx catheter was inserted and ultimately this was removed. His postop course was also complicated by development of pulmonary embolism and the patient was treated with anticoagulants and the patient continues to be on anti-coagulation with Eliquis. PET/CT that was done on 03/18/2022 showed progression of his disease with increase in the size and the metabolic activity of the mediastinal mass/lymphadenopathy. Based on that, the patient was started on treatment and the patient was given systemic chemotherapy with a combination of carboplatinum and FUSE [id number]-[id number]. He also completed radiation therapy. Since then, the patient's health has been in generally getting worse. He was hospitalized back in early June with worsening shortness of breath. At that time, he was having issues related to chemotherapy toxicity with pancytopenia. He was quite leukopenic and he was also anemic. His platelet count also dropped. During his hospital stay, the patient gradually improved and he was ultimately discharged home on oxygen. During his hospital stay, he also had a transient ischemic attack with some left-sided weakness. And neuro workup was done including a CT angiogram of the brain that showed no acute abnormalities. The patient ultimately recovered and he was started on aspirate 1 mg by mouth daily. Anti-coagulation was resumed. During this current hospitalization admission, the patient noticed that he was getting more hypoxic. Even with limited amount of activity, his pulse ox was dropping and his oxygen requirements gradually we will going up and he was using 5 L oxygen by nasal cannula. He decided to come into the hospital because of worsening shortness of breath. In the emergency, the patient was found to be quite short of breath. He had minimal amount of sputum production. No fever or chills. No reported chest pain. He was quite dyspneic. No altered mentation. Immediately, a CT angiogram was done and this rules out the possibility of pulmonary embolism. There was new areas of infiltration of the right lower lobe compared to the previous CAT scan and there was also tumor encasement of the right pulmonary artery on the posterior wall. There was also tumor encasement of the right lower lobe pulmonary vein and there was bilateral enlarged lymph nodes at the level of the abdirizak. The mass and the lymphadenopathy appears to have increased in size compared to the earlier examination. This is based on the radiologist's report. Patient is currently on high flow oxygen at 10 L in addition to a nonrebreather facemask. His current pulse ox 100%. WBC count is at 8 with a hemoglobin 9.2 and a platelet count of 188. Normal coagulation profile. D-dimer is at 1.27. Influenza screen, Covid 19 screen and RSV were all negative. He was started on IV Solu-Medrol. Is on DuoNeb about treatments [id number]. He was also started on IV cefepime and vancomycin is to be added. No major swelling in the lower extremities bilaterally. Today's evaluation of 06/28/2022, the patient is currently in the intensive care unit currently on high flow oxygen at 60 L with an FiO2 of 90%. He seems a more comfortable compared to yesterday. Breathing is less labored and his pulse ox is around 96-98%. Chest x-ray still showing bilateral pulmonary infiltrates most on the right lung and there is some infiltration of the left. Based on his immunosuppression frequent hospitalizations, the patient was started on a combination of cefepime and vancomycin. Currently is afebrile. He is hemodynamically stable. Cardiac rhythm is sinus. His echoes at 15.7 with a hemoglobin of 8.1 and a platelet count of 189. Sodium is at 139 with a potassium level of 3.9. BUN is at 70 with a creatinine of 0.5. Pro-calcitonin level is still pending. LFTs are mildly elevated with an AST of 61, ALT of 81, alkaline phosphatase of 92. His albumin level is at 2.7. No major swelling in lower extremities. Remains on anticoagulants with Eliquis. Remains on bronchodilators. Remains on IV Solu-Medrol 60 mg every 6 hours 06/29/2022, the patient is being seen for a follow-up. Remains on high flow oxygen with 60 L with an FiO2 of 80%. Chest x-ray findings of essentially unchanged. Bilateral pulmonary infiltrates worse on the right and the patient also has a chronic right-sided pleural effusion. In terms of antibiotic coverage, he is on a combination of cefepime and vancomycin for now. His pro calcitonin level was 0.06. He remains on bronchodilators. He remains on steroids. He is using the incentive spirometer and falling approximately 2000. In terms of his white count, he is white count is at 12.5 with a hemoglobin 8.3 and a platelet count of 213. Sodium is at 135, potassium is 4.7, BUN 19 and a creatinine of 0.6. Cultures are all negative including sputum and blood. His viral screen was also negative. His breathing is still labored. He desaturates upon talking. Nevertheless, one breathing through his nose, is able to maintain a saturation above 90%. His current pulse ox is around 93%. No significant tachycardia. Mild tachypnea. He is not using it is a muscle breathing. He is tolerating his diet for now. Extreme 2022, the patient is on high flow oxygen at 5 L with an FiO2 of 70%. Remains on broad-spectrum antibiotic and antifungal agents. He is currently on a combination of Zosyn, vancomycin, Levaquin and Eraxis. No positive cultures. Chest x-ray findings of essentially unchanged. The pro-calcitonin level was low. No blood work from today. The blood work from yesterday was noted. He is supposed to have a CBC and a basic metabolic profile. His speech is improved. Is able to speak longer sentences. His pulse ox is around 91-92% on the above-mentioned settings. He remains on IV steroids. Fluid balance has been in the order of 930 mL negative. The patient is tolerating diet. No aspiration. Legionella urine antigen came back negative. 07/01/2022, the patient remains on high flow oxygen at 60 L an FiO2 of 60%. He desaturates rather easily. Chest x-ray findings of essentially unchanged. Clinically unchanged and the patient is not showing any significant progress over the past few days. Meanwhile, he is on a broad-spectrum antibiotic co verage and the patient is currently on IV Zosyn, IV vancomycin, IV Eraxis, and by mouth Levaquin. He is afebrile. He is hemodynamically stable. His WBC count of 15.8 with a hemoglobin of 8.9. BUN is at 24 with a creatinine of 0.7 and a sodium level is at 134. Mental status is adequate. Moving all 4 extremities. Using the senna spirometer. 07/02/2022, patient remains on high flow oxygen. He remains on 60 L with an FiO2 of 60%. Based on his ongoing issues with oxygen desaturation, I repeated his CAT scan of the chest. I reviewed the CAT scan and as expected the patient has advanced emphysema with diffuse COPD changes throughout the lung gleason bilaterally. There is also some narrowing in the pulmonary artery branches and this favored chronic thromboemboli involving the right lower lobe pulmonary artery branches. There is an area of large fluid collection which is chronic measuring 10 x 3.6 cm in size in the posterior right lung base. There is also residual but improving airspace disease in the right midlung suggestive of an improving pneumonia. There is also evidence of mediastinal lymphadenopathy consistent with his underlying history of small cell lung cancer. As such, there is some limited improvement in his pneumonia. There is also chronic thromboemboli involving the right lower lobe pulmonary artery branch. The patient continues to be on broad-spectrum antibiotics. He is currently receiving a combination of antibiotics including Eraxis, Zosyn, Levaquin and vancomycin. He remains on IV Solu-Medrol 60 mg every 6 hours. Cultures are all negative. In terms of his blood work, there are all pending from today. His vancomycin trough level is at 18. He is sitting up on a chair. His pulse ox is 88% on the current high flow settings. He desaturates easily. However he does recover. Mental status is adequate. His tolerating his diet. Reevaluated today on 07/04/2022, patient remains in the ICU, maintained on a nonrebreather mask, airvo at 60 L and 55% FiO2. Patient is maximized on antibiotics and antifungal he is on Zosyn and Levaquin and vancomycin and Eraxis these are being addressed by infectious disease on the case. Clinically the patient is marginal at best, if he does not improve, may require intubation and mechanical ventilation. Continues to have leukocytosis with WBC of 19.9 hemoglobin 10.80 left lites are normal renal profile is normal. 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 Remains on antibiotics as per infectious disease on the case, no major issues over the last 24 hours. WBC count is 17.2 hemoglobin 11.2 in left lites are normal renal profile is normal chest x-ray continues to show definite infiltrate in the right lower lung, left sided infiltrate opacities seems to be chronic and slightly increased. Chronic small right-sided pleural effusion remains about the same. Reevaluated today on 07/06/22, patient remains in the ICU, remains on high flow on desai and high FiO2. Patient is on 60 L flow and 70% FiO2 and his O2 saturation is 96%. Hence will go down to 60% FiO2 and 60 L flow. Patient is basically about the same, his chest x-ray is also about the same with a right- sided pleural effusion and infiltrate in the left lower lobe. Remains on multiple antibiotics and on steroids, not much of an improvement clinically or radiographically over the last 2 weeks since admission WBC count is 19.3 hemoglobin 11.7. Renal profile is normal. Sputum cultures from yesterday are pending. Objective - Vital Signs Vital signs: Vital Signs Temp 97.4 F L 07/06/22 07:50 Pulse 102 H 07/06/22 08:59 Resp 20 07/06/22 07:58 BP 95/61 07/06/22 07:50 Pulse Ox 99 07/06/22 07:50 FiO2 60 07/06/22 10:43 Intake & Output 07/05/22 07/06/22 07/06/22 18:59 06:59 18:59 Intake Total 1504 800 527 Output Total 1200 1175 Balance 304 -375 527 Intake: IV 304 220 30 .9NS 120 120 10 Invasive Line 5 10 Invasive Line 6 10 Piperacillin-Tazobactam 3 100 100 .375 gm In Sodium Chloride 0.9% 100 ml @ 25 mls/hr IVPB Q8H BHAVNA Rx#: [id number] anidulafungin 84 Intake, IV Titration 100 Amount Piperacillin-Tazobactam 3 100 .375 gm In Sodium Chloride 0.9% 100 ml @ 25 mls/hr IVPB Q8H BHAVNA Rx#: [id number] Oral 1200 480 497 Output: Urine 1200 1175 Other: Voiding Method Urinal Urinal Urinal # Bowel Movements 1 1 - Exam Physical Exam: Revealed a 62-year-old white male in no distress, on airvo 70% FiO2 and 60 L flow Head: Atraumatic, normocephalic. HEENT:[Neck is supple.] [No neck masses.] [No thyromegaly.] [No JVD.] Chest: Minimal crackles at the bases no rhonchi and no wheezes Cardiac Exam: [Normal S1 and S2, no S3 gallop, no murmur.] Abdomen: [Soft, nontender, no megaly, no rebound, no guarding, normal bowel s ounds.] Extremities: [No clubbing, no edema, no cyanosis.] Neurological Exam: [No focal neurologic deficit.] Alert oriented 3. Psychiatric: Normal mood affect and normal mental status examination. Skin: No rashes - Labs CBC & Chem 7: 07/06/22 10:34 07/06/22 10:34 Labs: Abnormal Lab Results - Last 24 Hours (Table) 07/05/22 07/05/22 07/05/22 Range/Units 12:01 16:45 20:14 WBC (3.8-10.6) k/uL RBC (4.30-5.90) m/uL Hgb (13.0-17.5) gm/dL Hct (39.0-53.0) % MCHC (31.0-37.0) g/dL RDW (11.5-15.5) % Neutrophils # (1.3-7.7) k/uL Lymphocytes # (1.0-4.8) k/uL Monocytes # (0-1.0) k/uL Macrocytosis Sodium (137-145) mmol/L BUN (9-20) mg/dL Glucose (74-99) mg/dL POC Glucose (mg/dL) 146 H 139 H 143 H (70-110) mg/dL Calcium (8.4-10.2) mg/dL Magnesium (1.6-2.3) mg/dL 07/06/22 07/06/22 07/06/22 Range/Units 06:39 10:34 10:34 WBC 19.3 H (3.8-10.6) k/uL RBC 3.93 L (4.30-5.90) m/uL Hgb 11.7 L (13.0-17.5) gm/dL Hct 38.1 L (39.0-53.0) % MCHC 30.7 L (31.0-37.0) g/dL RDW 26.0 H (11.5-15.5) % Neutrophils # 17.7 H (1.3-7.7) k/uL Lymphocytes # 0.3 L (1.0-4.8) k/uL Monocytes # 1.2 H (0-1.0) k/uL Macrocytosis Marked A Sodium 134 L (137-145) mmol/L BUN 27 H (9-20) mg/dL Glucose 163 H (74-99) mg/dL POC Glucose (mg/dL) 129 H (70-110) mg/dL Calcium 8.1 L (8.4-10.2) mg/dL Magnesium 2.4 H (1.6-2.3) mg/dL 07/06/22 Range/Units 11:35 WBC (3.8-10.6) k/uL RBC (4.30-5.90) m/uL Hgb (13.0-17.5) gm/dL Hct (39.0-53.0) % MCHC (31.0-37.0) g/dL RDW (11.5-15.5) % Neutrophils # (1.3-7.7) k/uL Lymphocytes # (1.0-4.8) k/uL Monocytes # (0-1.0) k/uL Macrocytosis Sodium (137-145) mmol/L BUN (9-20) mg/dL Glucose (74-99) mg/dL POC Glucose (mg/dL) 179 H (70-110) mg/dL Calcium (8.4-10.2) mg/dL Magnesium (1.6-2.3) mg/dL Microbiology - Last 24 Hours (Table) 07/05/22 15:10 Gram Stain - Preliminary Sputum Sputum Culture - Preliminary Assessment and Plan Assessment: Impression: Acute hypoxic respiratory failure, multifactorial secondary to below Acute right lower lobe pneumonia, possibly hospital-acquired pneumonia Chronic right-sided pleural effusion and previous history of chylothorax. Unchanged in size. Advanced COPD. Underlying interstitial lung disease is to be considered. Squamous cell carcinoma requiring a right lower lobectomy T3 N0 M0 Small cell lung cancer with positive subcarinal nodes, patient finished chemotherapy and radiation therapy History of pulmonary embolism, remains on anticoagulation therapy is pulmonary embolism occurred following thoracotomy and right lower lobe resection Chemotherapy-induced leukopenia Chronic anemia, chemotherapy-induced. Generalized weakness and medical debility History of radiation esophagitis. History of chylothorax. History of underlying coronary artery disease with previous stent of LAD Recommendation: Continue oxygen and titrate accordingly patient remains on Arava for now. Continue antibiotics as per ID on the case Continue bronchodilators Continue IV Solu-Medrol Continue diuretics and keep the patient in negative balance continue anticoagulation therapy/eliquis Transfer to a monitor bed on 3 S. Will continue to follow Time with Patient: Less than 30
[2022-07-06] MEDS: ANIDULAFUNGIN 100 MG in SODIUM CHLORIDE 0.9% 100 ML IVPB SCH (12:30)
--- NOTE | 2022-07-06 13:55 | P.PN ---
Subjective Progress Note Date: 07/06/22 Principal diagnosis: Pneumonia Patient is a 62-year-old male with a past medical history significant for emphysema chronic smoker and also small cell lung cancer as well as squamous cell cancer of the lung status post right lower lobectomy postop course complicated by chylothorax for the Pleurx catheter has been placed also with a history of PE, patient presented to the hospital with increasing shortness of breath and hypoxemia CT with evidence of extensive infiltrate right lower lobe and loculated effusion. On today's evaluation that is 07/06/2022, patient continues to be afebrile, the patient is breathing comfortably currently on 60 % FiO2, the patient denies any worsening cough or any sputum, no nausea no vomiting no abdominal pain or diarrhea Objective - Vital Signs Vital signs: Vital Signs Temp 97.4 F L 07/06/22 07:50 Pulse 102 H 07/06/22 08:59 Resp 20 07/06/22 07:58 BP 95/61 07/06/22 07:50 Pulse Ox 99 07/06/22 07:50 FiO2 70 07/06/22 08:59 Intake & Output 07/05/22 07/06/22 07/06/22 18:59 06:59 18:59 Intake Total 1504 800 527 Output Total 1200 1175 Balance 304 -375 527 Intake: IV 304 220 30 .9NS 120 120 10 Invasive Line 5 10 Invasive Line 6 10 Piperacillin-Tazobactam 3 100 100 .375 gm In Sodium Chloride 0.9% 100 ml @ 25 mls/hr IVPB Q8H BHAVNA Rx#: [id number] anidulafungin 84 Intake, IV Titration 100 Amount Piperacillin-Tazobactam 3 100 .375 gm In Sodium Chloride 0.9% 100 ml @ 25 mls/hr IVPB Q8H BHAVNA Rx#: [id number] Oral 1200 480 497 Output: Urine 1200 1175 Other: Voiding Method Urinal Urinal Urinal # Bowel Movements 1 1 - Exam GENERAL DESCRIPTION: A middle-age male up in the chair in no distress RESPIRATORY SYSTEM: Unlabored breathing , coarse breath sounds bilaterally HEART: S1 S2 regular rate and rhythm , ABDOMEN: Soft , no tenderness EXTREMITIES: No edema feet - Labs CBC & Chem 7: 07/06/22 10:34 07/06/22 10:34 Labs: Abnormal Lab Results - Last 24 Hours (Table) 07/05/22 07/05/22 07/05/22 Range/Units 12:01 16:45 20:14 POC Glucose (mg/dL) 146 H 139 H 143 H (70-110) mg/dL 07/06/22 Range/Units 06:39 POC Glucose (mg/dL) 129 H (70-110) mg/dL Microbiology - Last 24 Hours (Table) 07/05/22 15:10 Gram Stain - Preliminary Sputum Sputum Culture - Preliminary Assessment and Plan (1) Pneumonia Current Visit: Yes Status: Acute Code(s): J18.9 - PNEUMONIA, UNSPECIFIED ORGANISM SNOMED Code(s): 099867710 Plan: 1patient presented to hospital with increasing shortness of breath which is likely multifactorial in this patient who do have a history of emphysema also with a history of lung cancer now with evidence of right-sided loculated fluid concerning for possible empyema and has been in and out of the hospital we will need to cover for resistant gram-positive as well as gram-negative. 2patient did have minimal clinical improvement and patient did have a repeat CT chest completed on 07/01/2022 also showed some improvement 3-patient sputum culture has been repeated, patient to continue with Zosyn and Zyvox while waiting for the cultures to finalize Time with Patient: Less than 30
[2022-07-06 16:34] LABS: Glucose,Whole Blood 152 mg/dL (70-110)
[2022-07-06] MEDS ORDERED: TIOTROPIUM 2.5 MCG INHALER INHALATION PRN (17:15)
[2022-07-06] MEDS ORDERED: ALBUTEROL HFA INHALER INHALATION PRN (17:15)
[2022-07-06] MEDS: ALBUTEROL HFA INHALER INHALATION SCH (19:52)
[2022-07-06 19:56] LABS: Glucose,Whole Blood 205 mg/dL (70-110)
[2022-07-06] MEDS: LORazepam 0.5 MG TAB PO PRN (21:01)
[2022-07-06] MEDS: ATORVASTATIN 80 MG TAB PO SCH (21:01)
--- NOTE | 2022-07-06 22:23 | P.PN ---
Subjective Progress Note Date: 07/05/22 Patient is a 62-year-old male with a known history of COPD, small cell lung cancer and squamous cell lung cancer status post right lobectomy, chylothorax status post Pleurx catheter insertion and removal, pulmonary embolism and recent PET scan showing progression of the disease and is being treated with systemic chemotherapy and underwent radiation therapy presents to ER due to worsening shortness of breath. 07/02/2022 Patient is in the MICU. Currently on Airvo at 60 L and 60% FiO2. Patient. CT chest done yesterday showed COPD with advanced emphysema and pulmonary arterial hypertension. Redemonstrated soft tissue thickening posterior wall of the right lower lobe pulmonary artery branch and resulting mild luminal narrowing. Chronic thick-walled pleural fluid collection at the posterior right base. Groundglass changes throughout the lower lungs appear similar. Patient is being continued broad-spectrum antibiotics Levaquin Zosyn and vancomycin and also on Eraxis. Currently on IV steroids. Laboratory data showed WBC 14.7 hemoglobin 10.4, MCV 96.2 and platelets 262 sodium 133 potassium 3.9 chloride 101 bicarb is 27 BUN 29 and creatinine 0.58 and calcium 7.9. 07/03/2022 Patient remains in the MICU. Currently on 60 L at FiO2 60%. Sitting which is comfortable. Awake alert and oriented x3. No complaints of chest pain or worsening shortness of breath. No cough or sputum production. Patient remains on broad-spectrum antibiotics and Eraxis. Also on anticoagulation with Eliquis. Continued on IV steroids and DuoNebs. Patient also on IV Lasix 20 mg daily. Laboratory data showed creatinine level 0.58 and blood sugar is controlled. ID and pulmonary is on board. 07/04/2022 Patient is in the MICU. Currently on high flow oxygen 60 L at 55% FiO2. Awake alert and oriented x3. No complaints of chest pain. No fever no chills. Patient is being continued broad-spectrum antibiotics, vancomycin changed to Zyvox. Currently on Zosyn and Levaquin. Also on Eraxis Patient is being current on IV steroids and DuoNebs and Pulmicort inhalation. Also being continued Lasix 20 mg IV daily. Pulmonary and ID is on board.. Laboratory data showed WBC 19.9 hemoglobin 10.8 and platelets 265 sodium 135 potassium 4.4 chloride 102 bicarb is 29 BUN 24 and creatinine 0.58 and calcium 8.2. Albumin 3.3. 07/05/2022 Patient remains in the MICU. Currently requiring high flow oxygen at 60 L and 60% FiO2. Sitting in the chair comfortably. Awake alert and oriented x3. No acute distress. Also on broad-spectrum antibiotics. Laboratory data showed WBC 17.2 hemoglobin 11.1 platelets 235 Sodium 132 potassium 4.6 BUN 24 and creatinine 0.64 and calcium 8.1. Hemodynamically stable. Chest x-ray today showed right lower lobe infiltrate appears to be getting better. Left-sided increased opacity may be chronic. Pleural effusion is suspected. Repeat CT scan of the chest or ultrasound of the right lower lung lobes may be considered for further evaluation of the pleural fluid. Current medications reviewed. Objective - Vital Signs Vital signs: Vital Signs Temp 96.7 F L 07/05/22 20:00 Pulse 115 H 07/05/22 20:00 Resp 23 07/05/22 20:00 BP 121/80 07/05/22 20:00 Pulse Ox 92 L 07/05/22 20:14 FiO2 70 07/05/22 20:14 Intake & Output 07/05/22 07/05/22 07/06/22 06:59 18:59 06:59 Intake Total 220 1504 20 Output Total 800 1200 300 Balance -580 304 -280 Weight 75 kg Intake: IV 220 304 20 .9NS 120 120 20 Piperacillin-Tazobactam 3 100 100 .375 gm In Sodium Chloride 0.9% 100 ml @ 25 mls/hr IVPB Q8H [facility] Rx#: [id number] anidulafungin 84 Oral 1200 Output: Urine 800 1200 300 Other: Voiding Method Urinal Urinal # Bowel Movements 1 - Exam PHYSICAL EXAMINATION: Patient is lying in the bed comfortably, no acute distress, awake alert and o riented.. HEENT: Normocephalic. Neck is supple. Pupils reactive. Nostrils clear. Oral cavity is moist. Neck reveals no JVD, carotid bruits, or thyromegaly. CHEST EXAMINATION: Trachea is central. Symmetrical expansion. Bilateral decreased air movement and scattered crackles. No wheezing or rhonchi.. CARDIAC: Normal S1, S2 with no gallops. No murmurs ABDOMEN: Soft. Bowel sounds present. Nontender. No organomegaly. No abdominal bruits. Extremities: reveal no edema. No clubbing or cyanosis Neurologically awake, alert, oriented x3 with well-coordinated movements. No focal deficits noted Skin: No rash or skin lesions. Psychiatric: Coperative. Nonsuicidal, Musculoskeletal: No joint swelling or deformity. Normal range of motion. - Labs CBC & Chem 7: 07/06/22 10:34 07/06/22 10:34 Labs: Abnormal Lab Results - Last 24 Hours (Table) 07/05/22 07/05/22 07/05/22 Range/Units 05:19 05:19 06:35 WBC 17.2 H (3.8-10.6) k/uL RBC 3.66 L (4.30-5.90) m/uL Hgb 11.2 L (13.0-17.5) gm/dL Hct 36.1 L (39.0-53.0) % RDW 26.5 H (11.5-15.5) % Macrocytosis Marked A Sodium 132 L (137-145) mmol/L BUN 24 H (9-20) mg/dL Creatinine 0.64 L (0.66-1.25) mg/dL Glucose 128 H (74-99) mg/dL POC Glucose (mg/dL) 130 H (70-110) mg/dL Calcium 8.1 L (8.4-10.2) mg/dL 07/05/22 07/05/22 07/05/22 Range/Units 12:01 16:45 20:14 WBC (3.8-10.6) k/uL RBC (4.30-5.90) m/uL Hgb (13.0-17.5) gm/dL Hct (39.0-53.0) % RDW (11.5-15.5) % Macrocytosis Sodium (137-145) mmol/L BUN (9-20) mg/dL Creatinine (0.66-1.25) mg/dL Glucose (74-99) mg/dL POC Glucose (mg/dL) 146 H 139 H 143 H (70-110) mg/dL Calcium (8.4-10.2) mg/dL Assessment and Plan Assessment: Acute right lower lobe pneumonia pneumonia. Repeat CT chest showed improvement in the right lower lobe pneumonia and loculated right-sided pleural effusion and extensive emphysematous/bullous changes and mediastinal lymphadenopathy Acute hypoxic respiratory failure currently requiring high flow oxygen via AIRVO Advanced COPD and chronic hypoxic respiratory failure on 2 L oxygen at home. Squamous cell carcinoma and small cell lung cancer status post right lower lobe resection and on chemotherapy and completed radiation therapy. History of PE History of right chylothorax status post Pleurx catheter placement and removal Generalized weakness Coronary with history of stent placement DVT prophylaxis patient is already on anticoagulation Plan: Patient will be continued on high flow oxygen at 60 L and 60% FiO2. Currently on broad-spectrum antibiotics, Eraxis and IV steroids. On DuoNebs and Pulmicort, Perforomist. Anticoagulation with Eliquis Blood cultures negative. ID and pulmonary is on board. DVT prophylaxis on Protonix. Continue to follow closely. Prognosis is guarded at this time. Time with Patient: Greater than 30
--- NOTE | 2022-07-06 22:25 | P.PN ---
Subjective Progress Note Date: 07/06/22 Patient is a 62-year-old male with a known history of COPD, small cell lung cancer and squamous cell lung cancer status post right lobectomy, chylothorax status post Pleurx catheter insertion and removal, pulmonary embolism and recent PET scan showing progression of the disease and is being treated with systemic chemotherapy and underwent radiation therapy presents to ER due to worsening shortness of breath. 07/02/2022 Patient is in the MICU. Currently on Airvo at 60 L and 60% FiO2. Patient. CT chest done yesterday showed COPD with advanced emphysema and pulmonary arterial hypertension. Redemonstrated soft tissue thickening posterior wall of the right lower lobe pulmonary artery branch and resulting mild luminal narrowing. Chronic thick-walled pleural fluid collection at the posterior right base. Groundglass changes throughout the lower lungs appear similar. Patient is being continued broad-spectrum antibiotics Levaquin Zosyn and vancomycin and also on Eraxis. Currently on IV steroids. Laboratory data showed WBC 14.7 hemoglobin 10.4, MCV 96.2 and platelets 262 sodium 133 potassium 3.9 chloride 101 bicarb is 27 BUN 29 and creatinine 0.58 and calcium 7.9. 07/03/2022 Patient remains in the MICU. Currently on 60 L at FiO2 60%. Sitting which is comfortable. Awake alert and oriented x3. No complaints of chest pain or worsening shortness of breath. No cough or sputum production. Patient remains on broad-spectrum antibiotics and Eraxis. Also on anticoagulation with Eliquis. Continued on IV steroids and DuoNebs. Patient also on IV Lasix 20 mg daily. Laboratory data showed creatinine level 0.58 and blood sugar is controlled. ID and pulmonary is on board. 07/04/2022 Patient is in the MICU. Currently on high flow oxygen 60 L at 55% FiO2. Awake alert and oriented x3. No complaints of chest pain. No fever no chills. Patient is being continued broad-spectrum antibiotics, vancomycin changed to Zyvox. Currently on Zosyn and Levaquin. Also on Eraxis Patient is being current on IV steroids and DuoNebs and Pulmicort inhalation. Also being continued Lasix 20 mg IV daily. Pulmonary and ID is on board.. Laboratory data showed WBC 19.9 hemoglobin 10.8 and platelets 265 sodium 135 potassium 4.4 chloride 102 bicarb is 29 BUN 24 and creatinine 0.58 and calcium 8.2. Albumin 3.3. 07/05/2022 Patient remains in the MICU. Currently requiring high flow oxygen at 60 L and 60% FiO2. Sitting in the chair comfortably. Awake alert and oriented x3. No acute distress. Also on broad-spectrum antibiotics. Laboratory data showed WBC 17.2 hemoglobin 11.1 platelets 235 Sodium 132 potassium 4.6 BUN 24 and creatinine 0.64 and calcium 8.1. Hemodynamically stable. Chest x-ray today showed right lower lobe infiltrate appears to be getting better. Left-sided increased opacity may be chronic. Pleural effusion is suspected. Repeat CT scan of the chest or ultrasound of the right lower lung lobes may be considered for further evaluation of the pleural fluid. 07/06/2022 Patient is in the MICU. Remains on high flow oxygen. Currently at 60 L at 70% FiO2. Breathing status remains the same. No complaints of chest pain or worsening shortness of breath. Patient has been afebrile. Patient was having some swelling of the left lower extremity but improved after action his legs. Patient is sitting in the chair most of the time. Currently anticoagulation with Eliquis due to history of PE. Continued on broad-spectrum antibiotics. And also Eraxis. Also on IV steroids. Chest x-ray showed no significant change. Laboratory data showed WBC 19.3 hemoglobin 11.7 and platelets 254 neutrophils 17.7 BUN 27 creatinine 0.7 and procalcitonin level is 0.09 and magnesium 2.4. Current medications reviewed. Objective - Vital Signs Vital signs: Vital Signs Temp 98.6 F 07/06/22 15:07 Pulse 112 H 07/06/22 20:02 Resp 24 07/06/22 15:07 BP 110/72 07/06/22 20:00 Pulse Ox 92 L 07/06/22 20:00 FiO2 60 07/06/22 19:53 Intake & Output 07/06/22 07/06/22 07/07/22 06:59 18:59 06:59 Intake Total 800 1252 Output Total 1175 450 300 Balance -375 802 -300 Intake: IV 220 160 .9NS 120 20 Anidulafungin 100 mg In 100 Sodium Chloride 0.9% 100 ml @ 84 mls/hr IVPB DAILY @1200 [facility] Rx#:[id number] Invasive Line 5 20 Invasive Line 6 20 Piperacillin-Tazobactam 3 100 .375 gm In Sodium Chloride 0.9% 100 ml @ 25 mls/hr IVPB Q8H [facility] Rx#: [id number] Intake, IV Titration 100 Amount Piperacillin-Tazobactam 3 100 .375 gm In Sodium Chloride 0.9% 100 ml @ 25 mls/hr IVPB Q8H [facility] Rx#: [id number] Oral 480 1092 Output: Urine 1175 450 300 Other: Voiding Method Urinal Urinal # Bowel Movements 1 - Exam PHYSICAL EXAMINATION: Patient is lying in the bed comfortably, no acute distress, awake alert and oriented.. HEENT: Normocephalic. Neck is supple. Pupils reactive. Nostrils clear. Oral cavity is moist. Neck reveals no JVD, carotid bruits, or thyromegaly. CHEST EXAMINATION: Trachea is central. Symmetrical expansion. Bilateral decreased air movement and scattered crackles. No wheezing or rhonchi.. CARDIAC: Normal S1, S2 with no gallops. No murmurs ABDOMEN: Soft. Bowel sounds present. Nontender. No organomegaly. No abdominal bruits. Extremities: reveal no edema. No clubbing or cyanosis Neurologically awake, alert, oriented x3 with well-coordinated movements. No focal deficits noted Skin: No rash or skin lesions. Psychiatric: Coperative. Nonsuicidal, Musculoskeletal: No joint swelling or deformity. Normal range of motion. - Labs CBC & Chem 7: 07/06/22 10:34 07/06/22 10:34 Labs: Abnormal Lab Results - Last 24 Hours (Table) 07/06/22 07/06/22 07/06/22 Range/Units 06:39 10:34 10:34 WBC 19.3 H (3.8-10.6) k/uL RBC 3.93 L (4.30-5.90) m/uL Hgb 11.7 L (13.0-17.5) gm/dL Hct 38.1 L (39.0-53.0) % MCHC 30.7 L (31.0-37.0) g/dL RDW 26.0 H (11.5-15.5) % Neutrophils # 17.7 H (1.3-7.7) k/uL Lymphocytes # 0.3 L (1.0-4.8) k/uL Monocytes # 1.2 H (0-1.0) k/uL Macrocytosis Marked A Sodium 134 L (137-145) mmol/L BUN 27 H (9-20) mg/dL Glucose 163 H (74-99) mg/dL POC Glucose (mg/dL) 129 H (70-110) mg/dL Calcium 8.1 L (8.4-10.2) mg/dL Magnesium 2.4 H (1.6-2.3) mg/dL 07/06/22 07/06/22 07/06/22 Range/Units 11:35 16:31 19:54 WBC (3.8-10.6) k/uL RBC (4.30-5.90) m/uL Hgb (13.0-17.5) gm/dL Hct (39.0-53.0) % MCHC (31.0-37.0) g/dL RDW (11.5-15.5) % Neutrophils # (1.3-7.7) k/uL Lymphocytes # (1.0-4.8) k/uL Monocytes # (0-1.0) k/uL Macrocytosis Sodium (137-145) mmol/L BUN (9-20) mg/dL Glucose (74-99) mg/dL POC Glucose (mg/dL) 179 H 152 H 205 H (70-110) mg/dL Calcium (8.4-10.2) mg/dL Magnesium (1.6-2.3) mg/dL Microbiology - Last 24 Hours (Table) 07/05/22 15:10 Gram Stain - Preliminary Sputum Sputum Culture - Preliminary Assessment and Plan Assessment: Acute right lower lobe pneumonia pneumonia. Repeat CT chest showed improvement in the right lower lobe pneumonia and loculated right-sided pleural effusion and extensive emphysematous/bullous changes and mediastinal lymphadenopathy Acute hypoxic respiratory failure currently requiring high flow oxygen via AIRVO Advanced COPD and chronic hypoxic respiratory failure on 2 L oxygen at home. Squamous cell carcinoma and small cell lung cancer status post right lower lobe resection and on chemotherapy and completed radiation therapy. History of PE History of right chylothorax status post Pleurx catheter placement and removal Generalized weakness Coronary with history of stent placement DVT prophylaxis patient is already on anticoagulation Plan: Patient will be continued on high flow oxygen at 60 L and 70% FiO2. Currently on broad-spectrum antibiotics, Eraxis and IV steroids. On DuoNebs and Pulmicort, Perforomist. Anticoagulation with Eliquis Blood cultures negative. ID and pulmonary is on board. DVT prophylaxis on Protonix. Continue to follow closely. Prognosis is guarded at this time. Time with Patient: Greater than 30
[2022-07-07] MEDS: methylPREDNISolone SOD SUCCI 125 MG/2 ML VIAL IV SCH ×4 (01:13→16:54)
[2022-07-07] MEDS: PIPERACILLIN-TAZOBACTAM 3.375 GM in SODIUM CHLORIDE 0.9% 100 ML IVPB SCH ×3 (01:14→16:55)
[2022-07-07 05:55] LABS: Glucose,Whole Blood 128 mg/dL (70-110)
[2022-07-07] MEDS: INSULIN ASPART (NovoLOG) 100 UNIT/ML VIAL SQ SCH ×4 (06:01→20:57)
[2022-07-07] MEDS: PANTOPRAZOLE 40 MG TABLET PO SCH (06:47)
[2022-07-07] MEDS: TIOTROPIUM 2.5 MCG INHALER INHALATION SCH (08:22)
[2022-07-07] MEDS: ALBUTEROL HFA INHALER INHALATION SCH ×4 (08:22→19:48)
[2022-07-07] MEDS: BUDESONIDE 1 MG/2 ML NEBU INHALATION SCH ×2 (08:22→19:48)
[2022-07-07] MEDS: FORMOTEROL FUMARATE 20 MCG/2 ML NEBU INHALATION SCH ×2 (08:22→19:48)
[2022-07-07] MEDS: MULTIVITAMINS, THERA 1 EACH TAB PO SCH (09:30)
[2022-07-07] MEDS: METOPROLOL TARTRATE 12.5 MG TAB PO SCH ×2 (09:30→20:57)
[2022-07-07] MEDS: LINEZOLID 600 MG TAB PO SCH ×2 (09:30→20:57)
[2022-07-07] MEDS: APIXABAN 5 MG TAB PO SCH ×2 (09:30→20:57)
[2022-07-07] MEDS: FUROSEMIDE 10 MG/ML 2 ML VIAL IV SCH (09:31)
[2022-07-07] MEDS: MAG HYDROX/AL HYDROX/SIMETH 30 ML, LIDOCAINE VISCOUS 2% 30 ML, diphenhydrAMINE ELIXIR 7... PO SCH ×12 (09:31→21:00)
[2022-07-07 12:15] LABS: Glucose,Whole Blood 151 mg/dL (70-110)
--- NOTE | 2022-07-07 12:16 | P.PN ---
Subjective Progress Note Date: 07/07/22 Principal diagnosis: lung cancer Patient reports feeling well overall. Still reporting shortness of breath. Pulse ox this morning 83%, pt is on airvo and NRB. No other reported complaints at this time Objective - Vital Signs Vital signs: Vital Signs Temp 97.4 F L 07/07/22 08:00 Pulse 108 H 07/07/22 08:43 Resp 18 07/07/22 08:00 BP 117/70 07/07/22 08:00 Pulse Ox 83 L 07/07/22 08:00 FiO2 60 07/07/22 11:51 Intake & Output 07/06/22 07/07/22 07/07/22 18:59 06:59 18:59 Intake Total 1252 40 138 Output Total 450 1450 Balance 802 -1410 138 Weight 71.5 kg Intake: IV 160 40 20 .9NS 20 Anidulafungin 100 mg In 100 Sodium Chloride 0.9% 100 ml @ 84 mls/hr IVPB DAILY @1200 [facility] Rx#:[id number] Invasive Line 5 20 20 10 Invasive Line 6 20 20 10 Oral 1092 118 Output: Urine 450 1450 Other: Voiding Method Urinal Urinal Urinal # Bowel Movements 1 1 - Constitutional General appearance: Present: no acute distress, thin - EENT Eyes: Present: anicteric sclerae, EOMI ENT: Present: hearing grossly normal - Respiratory Respiratory: bilateral: CTA - Cardiovascular Details: tachycardia Rhythm: regular Heart sounds: normal: S1, S2 Abnormal Heart Sounds: Absent: systolic murmur, diastolic murmur, rub, S3 Gallop, S4 Gallop, click, other - Integumentary Integumentary: Present: normal - Neurologic Neurologic: Present: CNII-XII intact - Musculoskeletal Musculoskeletal: Present: strength equal bilaterally - Psychiatric Psychiatric: Present: A&O x's 3, appropriate affect, intact judgment & insight - Labs CBC & Chem 7: 07/06/22 10:34 07/06/22 10:34 Labs: Abnormal Lab Results - Last 24 Hours (Table) 07/06/22 07/06/22 07/07/22 Range/Units 16:31 19:54 05:53 POC Glucose (mg/dL) 152 H 205 H 128 H (70-110) mg/dL Microbiology - Last 24 Hours (Table) 07/05/22 15:10 Gram Stain - Preliminary Sputum Sputum Culture - Preliminary Assessment and Plan (1) Small cell lung cancer Current Visit: Yes Status: Acute Priority: High Code(s): C34.90 - MALIGNANT NEOPLASM OF UNSP PART OF UNSP BRONCHUS OR LUNG SNOMED Code(s): 841291453 Plan: Small cell lung cancer: -Completed 3rd cycle of [employer] on 05/30-06/01 with addition of GCSF, given 06/02. XRT treatment is complete. Treatment currently delayed to low counts and hospital admissions. -Plan was to hold treatment and reassess in 2 weeks. If pt doing better then may consider completing last cycle of chemo, possibly dose reduction. Mild anemia, chemo induced -Hgb 11.7, no acute intervention, will continue to monitor counts Shortness of breath at rest -Pulse ox 83% this morning, pt is on airvo and NRB. Conversational dyspnea noted -Patient is being followed by pulmonology and infectious disease. Blood cultures negative. He is continued on IV steroids and scheduled DuoNeb treatments. Currently being treated with Zosyn and Eraxis. On Eliquis for hx of PE, CTA chest 06/26, showed no evidence of current PE -Will see how he progresses through this hospitalization, and reassess in outpatient setting once discharged to reassess patient prior to next chemo treatment. F/U appt in discharge plan
[2022-07-07 12:26] LABS: African American GFR (CKD) >90 (>60 ml/min/1.73 sqM); Anion Gap 6 mmol/L; Blood Urea Nitrogen 31 mg/dL (9-20); Carbon Dioxide 28 mmol/L (22-30); Chloride 99 mmol/L (98-107); Glucose 130 mg/dL (74-99); Non-African American GFR(CKD) >90 (>60 ml/min/1.73 sqM); Potassium 4.4 mmol/L (3.5-5.1); Sodium 133 mmol/L (137-145)
[2022-07-07 12:28] LABS: Anisocytosis Marked; Basophils # (A) 0.1 k/uL (0-0.2); Basophils % (A) 0 %; Eosinophils % (A) 0 %; HCT 38.4 % (39.0-53.0); HGB 12.1 gm/dL (13.0-17.5); Hypochromasia Moderate; Lymphocytes # (A) 0.2 k/uL (1.0-4.8); Lymphocytes % (A) 1 %; MCH 31.1 pg (25.0-35.0); MCHC 31.6 g/dL (31.0-37.0); MCV 98.3 fL (80.0-100.0); Macrocytosis Marked; Mean Platelet Volume 8.1; Monocytes % (A) 5 %; Neutrophils # (A) 20.8 k/uL (1.3-7.7); Neutrophils % (A) 93 %; Platelet Count 236 k/uL (150-450); Poikilocytosis Slight; RBC 3.91 m/uL (4.30-5.90); WBC 22.3 k/uL (3.8-10.6)
[2022-07-07 12:30] LABS: RDW 26.7 % (11.5-15.5)
--- NOTE | 2022-07-07 13:28 | P.PN ---
Subjective Progress Note Date: 07/07/22 A 62-year-old male patient with severe bullous emphysema, a chronic smoker is more than [id number] smoking history. 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 Postop course was complicated by development of chylothorax for which a Pleurx catheter was inserted and ultimately this was removed. His postop course was also complicated by development of pulmonary embolism and the patient was treated with anticoagulants and the patient continues to be on anti-coagulation with Eliquis. PET/CT that was done on 03/18/2022 showed progression of his disease with increase in the size and the metabolic activity of the mediastinal mass/lymphadenopathy. Based on that, the patient was started on treatment and the patient was given systemic chemotherapy with a combination of carboplatinum and ULTRASONIC TESTER-16. He also completed radiation therapy. Since then, the patient's health has been in generally getting worse. He was hospitalized back in early June with worsening shortness of breath. At that time, he was having issues related to chemotherapy toxicity with pancytopenia. He was quite leukopenic and he was also anemic. His platelet count also dropped. During his hospital stay, the patient gradually improved and he was ultimately discharged home on oxygen. During his hospital stay, he also had a transient ischemic attack with some left-sided weakness. And neuro workup was done including a CT angiogram of the brain that showed no acute abnormalities. The patient ultimately recovered and he was started on aspirate 1 mg by mouth daily. Anti-coagulation was resumed. During this current hospitalization admission, the patient noticed that he was getting more hypoxic. Even with limited amount of activity, his pulse ox was dropping and his oxygen requirements gradually we will going up and he was using 5 L oxygen by nasal cannula. He decided to come into the hospital because of worsening shortness of breath. In the emergency, the patient was found to be quite short of breath. He had minimal amount of sputum production. No fever or chills. No reported chest pain. He was quite dyspneic. No altered mentation. Immediately, a CT angiogram was done and this rules out the possibility of pulmonary embolism. There was new areas of infiltration of the right lower lobe compared to the previous CAT scan and there was also tumor encasement of the right pulmonary artery on the posterior wall. There was also tumor encasement of the right lower lobe pulmonary vein and there was bilateral enlarged lymph nodes at the level of the abdirizak. The mass and the lymphadenopathy appears to have increased in size compared to the earlier examination. This is based on the radiologist's report. Patient is currently on high flow oxygen at 10 L in addition to a nonrebreather facemask. His current pulse ox 100%. WBC count is at 8 with a hemoglobin 9.2 and a platelet count of 188. Normal coagulation profile. D-dimer is at 1.27. Influenza screen, Covid 19 screen and RSV were all negative. He was started on IV Solu-Medrol. Is on [employer] about treatments [id number]. He was also started on IV cefepime and vancomycin is to be added. No major swelling in the lower extremities bilaterally. Today's evaluation of 06/28/2022, the patient is currently in the intensive care unit currently on high flow oxygen at 60 L with an FiO2 of 90%. He seems a more comfortable compared to yesterday. Breathing is less labored and his pulse ox is around 96-98%. Chest x-ray still showing bilateral pulmonary infiltrates most on the right lung and there is some infiltration of the left. Based on his immunosuppression frequent hospitalizations, the patient was started on a combination of cefepime and vancomycin. Currently is afebrile. He is hemodynamically stable. Cardiac rhythm is sinus. His echoes at 15.7 with a hemoglobin of 8.1 and a platelet count of 189. Sodium is at 139 with a potassium level of 3.9. BUN is at 70 with a creatinine of 0.5. Pro-calcitonin level is still pending. LFTs are mildly elevated with an AST of 61, ALT of 81, alkaline phosphatase of 92. His albumin level is at 2.7. No major swelling in lower extremities. Remains on anticoagulants with Eliquis. Remains on bronchodilators. Remains on IV Solu-Medrol 60 mg every 6 hours 06/29/2022, the patient is being seen for a follow-up. Remains on high flow oxygen with 60 L with an FiO2 of 80%. Chest x-ray findings of essentially unchanged. Bilateral pulmonary infiltrates worse on the right and the patient also has a chronic right-sided pleural effusion. In terms of antibiotic coverage, he is on a combination of cefepime and vancomycin for now. His pro calcitonin level was 0.06. He remains on bronchodilators. He remains on steroids. He is using the [employer] spirometer and falling approximately 2000. In terms of his white count, he is white count is at 12.5 with a hemoglobin 8.3 and a platelet count of 213. Sodium is at 135, potassium is 4.7, BUN 19 and a creatinine of 0.6. Cultures are all negative including sputum and blood. His viral screen was also negative. His breathing is still labored. He desaturates upon talking. Nevertheless, one breathing through his nose, is able to maintain a saturation above 90%. His current pulse ox is around 93%. No significant tachycardia. Mild tachypnea. He is not using it is a muscle breathing. He is tolerating his diet for now. Extreme 2022, the patient is on high flow oxygen at 5 L with an FiO2 of 70%. Remains on broad-spectrum antibiotic and antifungal agents. He is currently on a combination of Zosyn, vancomycin, Levaquin and Eraxis. No positive cultures. Chest x-ray findings of essentially unchanged. The pro-calcitonin level was low. No blood work from today. The blood work from yesterday was noted. He is supposed to have a CBC and a basic metabolic profile. His speech is improved. Is able to speak longer sentences. His pulse ox is around 91-92% on the above-mentioned settings. He remains on IV steroids. Fluid balance has been in the order of 930 mL negative. The patient is tolerating diet. No aspiration. Legionella urine antigen came back negative. 07/01/2022, the patient remains on high flow oxygen at 60 L an FiO2 of 60%. He desaturates rather easily. Chest x-ray findings of essentially unchanged. Clinically unchanged and the patient is not showing any significant progress over the past few days. Meanwhile, he is on a broad-spectrum antibiotic c overage and the patient is currently on IV Zosyn, IV vancomycin, IV Eraxis, and by mouth Levaquin. He is afebrile. He is hemodynamically stable. His WBC count of 15.8 with a hemoglobin of 8.9. BUN is at 24 with a creatinine of 0.7 and a sodium level is at 134. Mental status is adequate. Moving all 4 extremities. Using the [employer] spirometer. 07/02/2022, patient remains on high flow oxygen. He remains on 60 L with an FiO2 of 60%. Based on his ongoing issues with oxygen desaturation, I repeated his CAT scan of the chest. I reviewed the CAT scan and as expected the patient has advanced emphysema with diffuse COPD changes throughout the lung gleason bilaterally. There is also some narrowing in the pulmonary artery branches and this favored chronic thromboemboli involving the right lower lobe pulmonary artery branches. There is an area of large fluid collection which is chronic measuring 10 x 3.6 cm in size in the posterior right lung base. There is also residual but improving airspace disease in the right midlung suggestive of an improving pneumonia. There is also evidence of mediastinal lymphadenopathy consistent with his underlying history of small cell lung cancer. As such, there is some limited improvement in his pneumonia. There is also chronic thromboemboli involving the right lower lobe pulmonary artery branch. The patient continues to be on broad-spectrum antibiotics. He is currently receiving a combination of antibiotics including Eraxis, Zosyn, Levaquin and vancomycin. He remains on IV Solu-Medrol 60 mg every 6 hours. Cultures are all negative. In terms of his blood work, there are all pending from today. His vancomycin trough level is at 18. He is sitting up on a chair. His pulse ox is 88% on the current high flow settings. He desaturates easily. However he does recover. Mental status is adequate. His tolerating his diet. Reevaluated today on 07/04/2022, patient remains in the ICU, maintained on a nonrebreather mask, airvo at 60 L and 55% FiO2. Patient is maximized on antibiotics and antifungal he is on Zosyn and Levaquin and vancomycin and Eraxis these are being addressed by infectious disease on the case. Clinically the patient is marginal at best, if he does not improve, may require intubation and mechanical ventilation. Continues to have leukocytosis with WBC of 19.9 hemoglobin 10.80 left lites are normal renal profile is normal. 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 Remains on antibiotics as per infectious disease on the case, no major issues over the last 24 hours. WBC count is 17.2 hemoglobin 11.2 in left lites are normal renal profile is normal chest x-ray continues to show definite infiltrate in the right lower lung, left sided infiltrate opacities seems to be chronic and slightly increased. Chronic small right-sided pleural effusion remains about the same. Reevaluated today on 07/06/22, patient remains in the ICU, remains on high flow on desai and high FiO2. Patient is on 60 L flow and 70% FiO2 and his O2 saturation is 96%. Hence will go down to 60% FiO2 and 60 L flow. Patient is basically about the same, his chest x-ray is also about the same with a right- sided pleural effusion and infiltrate in the left lower lobe. Remains on multiple antibiotics and on steroids, not much of an improvement clinically or radiographically over the last 2 weeks since admission WBC count is 19.3 hemoglobin 11.7. Renal profile is normal. Sputum cultures from yesterday are pending. The patient is seen today 07/07/2022 in follow-up on the selective care unit. He is currently sitting up in a chair at the bedside. Awake and alert in no acute distress. He is still dyspneic with minimal conversation. Dyspnea with minimal exertion. Remains on AirVo high flow oxygen at 60 L and 60% FiO2 along with a nonrebreather mask to maintain O2 saturations in the upper 80s and lower 90s. Cultures reveal no growth. Sputum cultures revealed no growth 2. White count 22.3. Hemoglobin 12.1. Platelets 236. Sodium 133. Potassium 4.4. Bicarb 20. BUN 31. Creatinine 0.66. Glucose 130. Pro-calcitonin 0.09. He is continued on Pulmicort and Perforomist inhalations, Ventolin and Spiriva inhalations, IV Solu-Medrol. Remains on antibiotics in the form of Zyvox and Zosyn. Anticoagulated with Eliquis. Currently on Lasix 20 mg IV daily. He is currently in a -600 ML balance. Objective - Vital Signs Vital signs: Vital Signs Temp 97.4 F L 07/07/22 08:00 Pulse 108 H 07/07/22 08:43 Resp 18 07/07/22 08:00 BP 117/70 07/07/22 08:00 Pulse Ox 83 L 07/07/22 08:00 FiO2 60 07/07/22 11:51 Intake & Output 07/06/22 07/07/22 07/07/22 18:59 06:59 18:59 Intake Total 1252 40 138 Output Total 450 1450 Balance 802 -1410 138 Weight 71.5 kg Intake: IV 160 40 20 .9NS 20 Anidulafungin 100 mg In 100 Sodium Chloride 0.9% 100 ml @ 84 mls/hr IVPB DAILY @1200 [facility] Rx#:[id number] Invasive Line 5 20 20 10 Invasive Line 6 20 20 10 Oral [id number] Output: Urine 450 1450 Other: Voiding Method Urinal Urinal Urinal # Bowel Movements 1 1 - Exam GENERAL EXAM: Alert, very pleasant 62-year-old male, and AirVo high flow oxygen 60 L and 60% FiO2 along with a nonrebreather mask, fairly comfortable in no apparent distress. HEAD: Normocephalic. EYES: Normal reaction of pupils, equal size. NOSE: Clear with pink turbinates. THROAT: No erythema or exudates. NECK: No masses, no JVD. CHEST: No chest wall deformity. LUNGS: Equal air entry with bibasilar crackles with scattered rhonchi. CVS: S1 and S2 normal with no audible murmur, regular rhythm. ABDOMEN: No hepatosplenomegaly, normal bowel sounds, no guarding or rigidity. SPINE: No scoliosis or deformity SKIN: No rashes CENTRAL NERVOUS SYSTEM: No focal deficits, tone is normal in all 4 extremities. EXTREMITIES: There is no peripheral edema. No clubbing, no cyanosis. Peripheral pulses are intact. - Labs CBC & Chem 7: 07/07/22 11:48 07/07/22 11:48 Labs: Abnormal Lab Results - Last 24 Hours (Table) 07/06/22 07/06/22 07/07/22 Range/Units 16:31 19:54 05:53 WBC (3.8-10.6) k/uL RBC (4.30-5.90) m/uL Hgb (13.0-17.5) gm/dL Hct (39.0-53.0) % RDW (11.5-15.5) % Neutrophils # (1.3-7.7) k/uL Lymphocytes # (1.0-4.8) k/uL Macrocytosis Sodium (137-145) mmol/L BUN (9-20) mg/dL Glucose (74-99) mg/dL POC Glucose (mg/dL) 152 H 205 H 128 H (70-110) mg/dL Calcium (8.4-10.2) mg/dL 07/07/22 07/07/22 07/07/22 Range/Units 11:35 11:48 11:48 WBC 22.3 H (3.8-10.6) k/uL RBC 3.91 L (4.30-5.90) m/uL Hgb 12.1 L (13.0-17.5) gm/dL Hct 38.4 L (39.0-53.0) % RDW 26.7 H (11.5-15.5) % Neutrophils # 20.8 H (1.3-7.7) k/uL Lymphocytes # 0.2 L (1.0-4.8) k/uL Macrocytosis Marked A Sodium 133 L (137-145) mmol/L BUN 31 H (9-20) mg/dL Glucose 130 H (74-99) mg/dL POC Glucose (mg/dL) 151 H (70-110) mg/dL Calcium 8.0 L (8.4-10.2) mg/dL Microbiology - Last 24 Hours (Table) 07/05/22 15:10 Gram Stain - Final Sputum Sputum Culture - Final Assessment and Plan Assessment: Acute hypoxic respiratory failure, multifactorial secondary to below Acute right lower lobe pneumonia, possibly hospital-acquired pneumonia Chronic right-sided pleural effusion and previous history of chylothorax. Unchanged in size. Advanced COPD. Underlying interstitial lung disease is to be considered. Squamous cell carcinoma requiring a right lower lobectomy T3 N0 M0 Small cell lung cancer with positive subcarinal nodes, patient finished chemotherapy and radiation therapy History of pulmonary embolism, remains on anticoagulation therapy is pulmonary embolism occurred following thoracotomy and right lower lobe resection Chemotherapy-induced leukopenia Chronic anemia, chemotherapy-induced. Generalized weakness and medical debility History of radiation esophagitis. History of chylothorax. History of underlying coronary artery disease with previous stent of LAD Plan: The patient was seen and evaluated Medications and labs reviewed Procalcitonin remains normal at 0.09 Remains on Zyvox and Zosyn Infectious disease is on the case Continue bronchodilators, IV Solu-Medrol Titrate the FiO2 as tolerated Anticoagulated with Eliquis We will continue to follow I have personally seen and examined the patient, performed the documentation and the assessment and plan as written. Number of minutes spent on the visit: 10.
[2022-07-07] MEDS: ANIDULAFUNGIN 100 MG in SODIUM CHLORIDE 0.9% 100 ML IVPB SCH (14:15)
[2022-07-07] MEDS: LORazepam 0.5 MG TAB PO PRN (16:53)
[2022-07-07 17:06] LABS: Glucose,Whole Blood 151 mg/dL (70-110)
[2022-07-07 20:01] LABS: Glucose,Whole Blood 187 mg/dL (70-110)
[2022-07-07] MEDS: ATORVASTATIN 80 MG TAB PO SCH (20:57)
--- NOTE | 2022-07-07 21:06 | P.PN ---
Subjective Progress Note Date: 07/07/22 Principal diagnosis: Pneumonia Patient is a 62-year-old male with a past medical history significant for emphysema chronic smoker and also small cell lung cancer as well as squamous cell cancer of the lung status post right lower lobectomy postop course complicated by chylothorax for the Pleurx catheter has been placed also with a history of PE, patient presented to the hospital with increasing shortness of breath and hypoxemia CT with evidence of extensive infiltrate right lower lobe and loculated effusion. On today's evaluation that is 07/07/2022, patient remains to be afebrile, the patient is still coming or shortness of breath on exertion and is requiring more FiO2 today, the patient denies any worsening cough or any sputum, no nausea no vomiting no abdominal pain or diarrhea Objective - Vital Signs Vital signs: Vital Signs Temp 97.4 F L 07/07/22 08:00 Pulse 108 H 07/07/22 08:43 Resp 18 07/07/22 08:00 BP 117/70 07/07/22 08:00 Pulse Ox 83 L 07/07/22 08:00 FiO2 60 07/07/22 08:23 Intake & Output 07/06/22 07/07/22 07/07/22 18:59 06:59 18:59 Intake Total 1252 40 118 Output Total 450 1450 Balance 802 -1410 118 Weight 71.5 kg Intake: IV 160 40 .9NS 20 Anidulafungin 100 mg In 100 Sodium Chloride 0.9% 100 ml @ 84 mls/hr IVPB DAILY @1200 [facility] Rx#:[id number] Invasive Line 5 20 20 Invasive Line 6 20 20 Oral [id number] Output: Urine 450 1450 Other: Voiding Method Urinal Urinal # Bowel Movements 1 1 - Exam GENERAL DESCRIPTION: A middle-age male up in the chair in no distress RESPIRATORY SYSTEM: Unlabored breathing , coarse breath sounds bilaterally HEART: S1 S2 regular rate and rhythm , ABDOMEN: Soft , no tenderness EXTREMITIES: No edema feet - Labs CBC & Chem 7: 07/07/22 11:48 07/07/22 11:48 Labs: Abnormal Lab Results - Last 24 Hours (Table) 07/06/22 07/06/22 07/06/22 Range/Units 10:34 10:34 11:35 WBC 19.3 H (3.8-10.6) k/uL RBC 3.93 L (4.30-5.90) m/uL Hgb 11.7 L (13.0-17.5) gm/dL Hct 38.1 L (39.0-53.0) % MCHC 30.7 L (31.0-37.0) g/dL RDW 26.0 H (11.5-15.5) % Neutrophils # 17.7 H (1.3-7.7) k/uL Lymphocytes # 0.3 L (1.0-4.8) k/uL Monocytes # 1.2 H (0-1.0) k/uL Macrocytosis Marked A Sodium 134 L (137-145) mmol/L BUN 27 H (9-20) mg/dL Glucose 163 H (74-99) mg/dL POC Glucose (mg/dL) 179 H (70-110) mg/dL Calcium 8.1 L (8.4-10.2) mg/dL Magnesium 2.4 H (1.6-2.3) mg/dL 07/06/22 07/06/22 07/07/22 Range/Units 16:31 19:54 05:53 WBC (3.8-10.6) k/uL RBC (4.30-5.90) m/uL Hgb (13.0-17.5) gm/dL Hct (39.0-53.0) % MCHC (31.0-37.0) g/dL RDW (11.5-15.5) % Neutrophils # (1.3-7.7) k/uL Lymphocytes # (1.0-4.8) k/uL Monocytes # (0-1.0) k/uL Macrocytosis Sodium (137-145) mmol/L BUN (9-20) mg/dL Glucose (74-99) mg/dL POC Glucose (mg/dL) 152 H 205 H 128 H (70-110) mg/dL Calcium (8.4-10.2) mg/dL Magnesium (1.6-2.3) mg/dL Microbiology - Last 24 Hours (Table) 07/05/22 15:10 Gram Stain - Preliminary Sputum Sputum Culture - Preliminary Assessment and Plan (1) Pneumonia Current Visit: Yes Status: Acute Code(s): J18.9 - PNEUMONIA, UNSPECIFIED ORGANISM SNOMED Code(s): 340983987 Plan: 1patient presented to hospital with increasing shortness of breath which is likely multifactorial in this patient who do have a history of emphysema also with a history of lung cancer now with evidence of right-sided loculated fluid concerning for possible empyema and has been in and out of the hospital we will need to cover for resistant gram-positive as well as gram-negative. 2patient clinical condition remains to be borderline however patient did have a repeat CT chest completed on 07/01/2022 also showed some improvement 3-patient sputum culture has been repeated which are negative so far, patient to continue with Zosyn and Zyvox and monitor clinical course> Time with Patient: Less than 30
[2022-07-08] MEDS: methylPREDNISolone SOD SUCCI 125 MG/2 ML VIAL IV SCH ×4 (00:05→17:12)
[2022-07-08] MEDS: LORazepam 0.5 MG TAB PO PRN ×2 (00:28→10:00)
[2022-07-08] MEDS: PIPERACILLIN-TAZOBACTAM 3.375 GM in SODIUM CHLORIDE 0.9% 100 ML IVPB SCH ×3 (02:24→17:13)
[2022-07-08 06:00] LABS: Glucose,Whole Blood 132 mg/dL (70-110)
[2022-07-08] MEDS: INSULIN ASPART (NovoLOG) 100 UNIT/ML VIAL SQ SCH ×4 (06:05→20:54)
[2022-07-08] MEDS: PANTOPRAZOLE 40 MG TABLET PO SCH (06:45)
[2022-07-08] MEDS: APIXABAN 5 MG TAB PO SCH ×2 (07:43→20:55)
[2022-07-08] MEDS: FUROSEMIDE 10 MG/ML 2 ML VIAL IV SCH (07:43)
[2022-07-08] MEDS: LINEZOLID 600 MG TAB PO SCH ×2 (07:44→20:55)
[2022-07-08] MEDS: MAG HYDROX/AL HYDROX/SIMETH 30 ML, LIDOCAINE VISCOUS 2% 30 ML, diphenhydrAMINE ELIXIR 7... PO SCH ×12 (07:44→21:02)
[2022-07-08] MEDS: MULTIVITAMINS, THERA 1 EACH TAB PO SCH (07:44)
[2022-07-08] MEDS: METOPROLOL TARTRATE 12.5 MG TAB PO SCH ×2 (07:44→20:55)
[2022-07-08] MEDS: ALBUTEROL HFA INHALER INHALATION SCH ×4 (08:20→20:11)
[2022-07-08] MEDS: TIOTROPIUM 2.5 MCG INHALER INHALATION SCH (08:21)
[2022-07-08] MEDS: FORMOTEROL FUMARATE 20 MCG/2 ML NEBU INHALATION SCH ×2 (09:01→20:11)
[2022-07-08] MEDS: BUDESONIDE 1 MG/2 ML NEBU INHALATION SCH ×2 (09:01→20:11)
--- NOTE | 2022-07-08 11:55 | P.PN ---
Subjective Progress Note Date: 07/08/22 A 62-year-old male patient with severe bullous emphysema, a chronic smoker is more than [id number] smoking history. 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 Postop course was complicated by development of chylothorax for which a Pleurx catheter was inserted and ultimately this was removed. His postop course was also complicated by development of pulmonary embolism and the patient was treated with anticoagulants and the patient continues to be on anti-coagulation with Eliquis. PET/CT that was done on 03/18/2022 showed progression of his disease with increase in the size and the metabolic activity of the mediastinal mass/lymphadenopathy. Based on that, the patient was started on treatment and the patient was given systemic chemotherapy with a combination of carboplatinum and MOPPER-16. He also completed radiation therapy. Since then, the patient's health has been in generally getting worse. He was hospitalized back in early June with worsening shortness of breath. At that time, he was having issues related to chemotherapy toxicity with pancytopenia. He was quite leukopenic and he was also anemic. His platelet count also dropped. During his hospital stay, the patient gradually improved and he was ultimately discharged home on oxygen. During his hospital stay, he also had a transient ischemic attack with some left-sided weakness. And neuro workup was done including a CT angiogram of the brain that showed no acute abnormalities. The patient ultimately recovered and he was started on aspirate 1 mg by mouth daily. Anti-coagulation was resumed. During this current hospitalization admission, the patient noticed that he was getting more hypoxic. Even with limited amount of activity, his pulse ox was dropping and his oxygen requirements gradually we will going up and he was using 5 L oxygen by nasal cannula. He decided to come into the hospital because of worsening shortness of breath. In the emergency, the patient was found to be quite short of breath. He had minimal amount of sputum production. No fever or chills. No reported chest pain. He was quite dyspneic. No altered mentation. Immediately, a CT angiogram was done and this rules out the possibility of pulmonary embolism. There was new areas of infiltration of the right lower lobe compared to the previous CAT scan and there was also tumor encasement of the right pulmonary artery on the posterior wall. There was also tumor encasement of the right lower lobe pulmonary vein and there was bilateral enlarged lymph nodes at the level of the abdirizak. The mass and the lymphadenopathy appears to have increased in size compared to the earlier examination. This is based on the radiologist's report. Patient is currently on high flow oxygen at 10 L in addition to a nonrebreather facemask. His current pulse ox 100%. WBC count is at 8 with a hemoglobin 9.2 and a platelet count of 188. Normal coagulation profile. D-dimer is at 1.27. Influenza screen, Covid 19 screen and RSV were all negative. He was started on IV Solu-Medrol. Is on DuoNeb about treatments [id number]. He was also started on IV cefepime and vancomycin is to be added. No major swelling in the lower extremities bilaterally. Today's evaluation of 06/28/2022, the patient is currently in the intensive care unit currently on high flow oxygen at 60 L with an FiO2 of 90%. He seems a more comfortable compared to yesterday. Breathing is less labored and his pulse ox is around 96-98%. Chest x-ray still showing bilateral pulmonary infiltrates most on the right lung and there is some infiltration of the left. Based on his immunosuppression frequent hospitalizations, the patient was started on a combination of cefepime and vancomycin. Currently is afebrile. He is hemodynamically stable. Cardiac rhythm is sinus. His echoes at 15.7 with a hemoglobin of 8.1 and a platelet count of 189. Sodium is at 139 with a potassium level of 3.9. BUN is at 70 with a creatinine of 0.5. Pro-calcitonin level is still pending. LFTs are mildly elevated with an AST of 61, ALT of 81, alkaline phosphatase of 92. His albumin level is at 2.7. No major swelling in lower extremities. Remains on anticoagulants with Eliquis. Remains on bronchodilators. Remains on IV Solu-Medrol 60 mg every 6 hours 06/29/2022, the patient is being seen for a follow-up. Remains on high flow oxygen with 60 L with an FiO2 of 80%. Chest x-ray findings of essentially unchanged. Bilateral pulmonary infiltrates worse on the right and the patient also has a chronic right-sided pleural effusion. In terms of antibiotic coverage, he is on a combination of cefepime and vancomycin for now. His pro calcitonin level was 0.06. He remains on bronchodilators. He remains on steroids. He is using the incentive spirometer and falling approximately 2000. In terms of his white count, he is white count is at 12.5 with a hemoglobin 8.3 and a platelet count of 213. Sodium is at 135, potassium is 4.7, BUN 19 and a creatinine of 0.6. Cultures are all negative including sputum and blood. His viral screen was also negative. His breathing is still labored. He desaturates upon talking. Nevertheless, one breathing through his nose, is able to maintain a saturation above 90%. His current pulse ox is around 93%. No significant tachycardia. Mild tachypnea. He is not using it is a muscle breathing. He is tolerating his diet for now. Extreme 2022, the patient is on high flow oxygen at 5 L with an FiO2 of 70%. Remains on broad-spectrum antibiotic and antifungal agents. He is currently on a combination of Zosyn, vancomycin, Levaquin and Eraxis. No positive cultures. Chest x-ray findings of essentially unchanged. The pro-calcitonin level was low. No blood work from today. The blood work from yesterday was noted. He is supposed to have a CBC and a basic metabolic profile. His speech is improved. Is able to speak longer sentences. His pulse ox is around 91-92% on the above-mentioned settings. He remains on IV steroids. Fluid balance has been in the order of 930 mL negative. The patient is tolerating diet. No aspiration. Legionella urine antigen came back negative. 07/01/2022, the patient remains on high flow oxygen at 60 L an FiO2 of 60%. He desaturates rather easily. Chest x-ray findings of essentially unchanged. Clinically unchanged and the patient is not showing any significant progress over the past few days. Meanwhile, he is on a broad-spectrum antibiotic c overage and the patient is currently on IV Zosyn, IV vancomycin, IV Eraxis, and by mouth Levaquin. He is afebrile. He is hemodynamically stable. His WBC count of 15.8 with a hemoglobin of 8.9. BUN is at 24 with a creatinine of 0.7 and a sodium level is at 134. Mental status is adequate. Moving all 4 extremities. Using the General Bloodna spirometer. 07/02/2022, patient remains on high flow oxygen. He remains on 60 L with an FiO2 of 60%. Based on his ongoing issues with oxygen desaturation, I repeated his CAT scan of the chest. I reviewed the CAT scan and as expected the patient has advanced emphysema with diffuse COPD changes throughout the lung gleason bilaterally. There is also some narrowing in the pulmonary artery branches and this favored chronic thromboemboli involving the right lower lobe pulmonary artery branches. There is an area of large fluid collection which is chronic measuring 10 x 3.6 cm in size in the posterior right lung base. There is also residual but improving airspace disease in the right midlung suggestive of an improving pneumonia. There is also evidence of mediastinal lymphadenopathy consistent with his underlying history of small cell lung cancer. As such, there is some limited improvement in his pneumonia. There is also chronic thromboemboli involving the right lower lobe pulmonary artery branch. The patient continues to be on broad-spectrum antibiotics. He is currently receiving a combination of antibiotics including Eraxis, Zosyn, Levaquin and vancomycin. He remains on IV Solu-Medrol 60 mg every 6 hours. Cultures are all negative. In terms of his blood work, there are all pending from today. His vancomycin trough level is at 18. He is sitting up on a chair. His pulse ox is 88% on the current high flow settings. He desaturates easily. However he does recover. Mental status is adequate. His tolerating his diet. Reevaluated today on 07/04/2022, patient remains in the ICU, maintained on a nonrebreather mask, airvo at 60 L and 55% FiO2. Patient is maximized on antibiotics and antifungal he is on Zosyn and Levaquin and vancomycin and Eraxis these are being addressed by infectious disease on the case. Clinically the patient is marginal at best, if he does not improve, may require intubation and mechanical ventilation. Continues to have leukocytosis with WBC of 19.9 hemoglobin 10.80 left lites are normal renal profile is normal. 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 Remains on antibiotics as per infectious disease on the case, no major issues over the last 24 hours. WBC count is 17.2 hemoglobin 11.2 in left lites are normal renal profile is normal chest x-ray continues to show definite infiltrate in the right lower lung, left sided infiltrate opacities seems to be chronic and slightly increased. Chronic small right-sided pleural effusion remains about the same. Reevaluated today on 07/06/22, patient remains in the ICU, remains on high flow on desai and high FiO2. Patient is on 60 L flow and 70% FiO2 and his O2 saturation is 96%. Hence will go down to 60% FiO2 and 60 L flow. Patient is basically about the same, his chest x-ray is also about the same with a right- sided pleural effusion and infiltrate in the left lower lobe. Remains on multiple antibiotics and on steroids, not much of an improvement clinically or radiographically over the last 2 weeks since admission WBC count is 19.3 hemoglobin 11.7. Renal profile is normal. Sputum cultures from yesterday are pending. The patient is seen today 07/07/2022 in follow-up on the selective care unit. He is currently sitting up in a chair at the bedside. Awake and alert in no acute distress. He is still dyspneic with minimal conversation. Dyspnea with minimal exertion. Remains on AirVo high flow oxygen at 60 L and 60% FiO2 along with a nonrebreather mask to maintain O2 saturations in the upper 80s and lower 90s. Cultures reveal no growth. Sputum cultures revealed no growth 2. White count 22.3. Hemoglobin 12.1. Platelets 236. Sodium 133. Potassium 4.4. Bicarb 20. BUN 31. Creatinine 0.66. Glucose 130. Pro-calcitonin 0.09. He is continued on Pulmicort and Perforomist inhalations, Ventolin and Spiriva inhalations, IV Solu-Medrol. Remains on antibiotics in the form of Zyvox and Zosyn. Anticoagulated with Eliquis. Currently on Lasix 20 mg IV daily. He is currently in a -600 ML balance. The patient is seen today 07/08/2022 in follow-up on the selective care unit. He is awake and alert. He is sitting up in a chair at the bedside. He is breathing is about the same today compared to yesterday. Continues on AirVo high flow oxygen at 60 L and 70% FiO2 plus a nonrebreather mask to maintain O2 saturations in the low 90s. He is still having issues with some anxiety. Blood cultures revealed no growth. Sputum culture revealed no growth. Glucose 132. He is continued on Pulmicort and Perforomist inhalations, Ventolin and Spiriva inhalations, IV Solu-Medrol. Remains on antibiotics in the form of Zyvox and Zosyn. Remains on Eraxis. Anticoagulated with Eliquis. Currently on Lasix 20 mg IV daily. Currently in a -990 ML balance. Blood sugar 132. No new labs today. Objective - Vital Signs Vital signs: Vital Signs Temp 97.0 F L 07/08/22 11:33 Pulse 115 H 07/08/22 11:33 Resp 24 07/08/22 11:33 BP 101/60 07/08/22 11:33 Pulse Ox 93 L 07/08/22 11:33 FiO2 70 07/08/22 11:33 Intake & Output 07/07/22 07/08/22 07/08/22 18:59 06:59 18:59 Intake Total 394 40 450 Output Total 475 950 325 Balance -81 -910 125 Intake: IV 40 40 10 Invasive Line 5 20 20 5 Invasive Line 6 20 20 5 Oral 354 440 Output: Urine 475 950 325 Other: Voiding Method Urinal Urinal Urinal # Voids 1 1 # Bowel Movements 4 1 - Exam GENERAL EXAM: Alert, anxious 62-year-old male, and AirVo high flow oxygen 60 L and 70% FiO2 along with a nonrebreather mask, fairly comfortable in no apparent distress. HEAD: Normocephalic. EYES: Normal reaction of pupils, equal size. NOSE: Clear with pink turbinates. THROAT: No erythema or exudates. NECK: No masses, no JVD. CHEST: No chest wall deformity. LUNGS: Equal air entry with bibasilar crackles with scattered rhonchi. CVS: S1 and S2 normal with no audible murmur, regular rhythm. ABDOMEN: No hepatosplenomegaly, normal bowel sounds, no guarding or rigidity. SPINE: No scoliosis or deformity SKIN: No rashes CENTRAL NERVOUS SYSTEM: No focal deficits, tone is normal in all 4 extremities. EXTREMITIES: There is no peripheral edema. No clubbing, no cyanosis. Peripheral pulses are intact. - Labs CBC & Chem 7: 07/07/22 11:48 07/07/22 11:48 Labs: Abnormal Lab Results - Last 24 Hours (Table) 07/07/22 07/07/22 07/07/22 Range/Units 11:35 11:48 11:48 WBC 22.3 H (3.8-10.6) k/uL RBC 3.91 L (4.30-5.90) m/uL Hgb 12.1 L (13.0-17.5) gm/dL Hct 38.4 L (39.0-53.0) % RDW 26.7 H (11.5-15.5) % Neutrophils # 20.8 H (1.3-7.7) k/uL Lymphocytes # 0.2 L (1.0-4.8) k/uL Macrocytosis Marked A Sodium 133 L (137-145) mmol/L BUN 31 H (9-20) mg/dL Glucose 130 H (74-99) mg/dL POC Glucose (mg/dL) 151 H (70-110) mg/dL Calcium 8.0 L (8.4-10.2) mg/dL 07/07/22 07/07/22 07/08/22 Range/Units 16:47 19:56 05:58 WBC (3.8-10.6) k/uL RBC (4.30-5.90) m/uL Hgb (13.0-17.5) gm/dL Hct (39.0-53.0) % RDW (11.5-15.5) % Neutrophils # (1.3-7.7) k/uL Lymphocytes # (1.0-4.8) k/uL Macrocytosis Sodium (137-145) mmol/L BUN (9-20) mg/dL Glucose (74-99) mg/dL POC Glucose (mg/dL) 151 H 187 H 132 H (70-110) mg/dL Calcium (8.4-10.2) mg/dL Microbiology - Last 24 Hours (Table) 07/05/22 15:10 Gram Stain - Final Sputum Sputum Culture - Final Assessment and Plan Assessment: Acute hypoxic respiratory failure, multifactorial secondary to below remains on AirVo high flow oxygen at 60 L and 70% FiO2 plus a nonrebreather mask Acute right lower lobe pneumonia, possibly hospital-acquired pneumonia Chronic right-sided pleural effusion and previous history of chylothorax. Unchanged in size. Remains on IV diuretics Advanced COPD. Underlying interstitial lung disease is to be considered. Squamous cell carcinoma requiring a right lower lobectomy T3 N0 M0 Small cell lung cancer with positive subcarinal nodes, patient finished chemotherapy and radiation therapy History of pulmonary embolism, remains on Xarelto pulmonary embolism occurred following thoracotomy and right lower lobe resection Chemotherapy-induced leukopenia Chronic anemia, chemotherapy-induced. Generalized weakness and medical debility History of radiation esophagitis. History of chylothorax. History of underlying coronary artery disease with previous stent of LAD Plan: The patient was seen and evaluated Medications reviewed Complaining of increasing anxiety Ativan to 1 mg 3 times a day when necessary Continue bronchodilators, IV Solu-Medrol Titrate the FiO2 as tolerated Anticoagulated with Eliquis We will continue to follow I have personally seen and examined the patient, performed the documentation and the assessment and plan as written. Number of minutes spent on the visit: 10.
[2022-07-08 12:01] LABS: Glucose,Whole Blood 107 mg/dL (70-110)
[2022-07-08] MEDS: ANIDULAFUNGIN 100 MG in SODIUM CHLORIDE 0.9% 100 ML IVPB SCH (12:24)
--- NOTE | 2022-07-08 15:06 | P.PN ---
Subjective Progress Note Date: 07/08/22 Principal diagnosis: Pneumonia Patient is a 62-year-old male with a past medical history significant for emphysema chronic smoker and also small cell lung cancer as well as squamous cell cancer of the lung status post right lower lobectomy postop course complicated by chylothorax for the Pleurx catheter has been placed also with a history of PE, patient presented to the hospital with increasing shortness of breath and hypoxemia CT with evidence of extensive infiltrate right lower lobe and loculated effusion. On today's evaluation that is 07/08/2022, patient denies any fever or any chills, the patient is complaining of shortness of breath on exertion and is requiring more FiO2 which is currently at 70% requiring a nonrebreather as well, the patient denies any worsening cough or any sputum, no nausea no vomiting no abdominal pain or diarrhea Objective - Vital Signs Vital signs: Vital Signs Temp 97.6 F 07/08/22 08:00 Pulse 116 H 07/08/22 09:09 Resp 24 07/08/22 08:00 BP 122/78 07/08/22 08:00 Pulse Ox 94 L 07/08/22 11:26 FiO2 70 07/08/22 11:26 Intake & Output 07/07/22 07/08/22 07/08/22 18:59 06:59 18:59 Intake Total 394 40 450 Output Total 475 950 325 Balance -81 -910 125 Intake: IV 40 40 10 Invasive Line 5 20 20 5 Invasive Line 6 20 20 5 Oral 354 440 Output: Urine 475 950 325 Other: Voiding Method Urinal Urinal Urinal # Voids 1 1 # Bowel Movements 4 1 - Exam GENERAL DESCRIPTION: A middle-age male up in the chair in no distress RESPIRATORY SYSTEM: Unlabored breathing , coarse breath sounds bilaterally HEART: S1 S2 regular rate and rhythm , ABDOMEN: Soft , no tenderness EXTREMITIES: No edema feet - Labs CBC & Chem 7: 07/07/22 11:48 07/07/22 11:48 Labs: Abnormal Lab Results - Last 24 Hours (Table) 07/07/22 07/07/22 07/07/22 Range/Units 11:35 11:48 11:48 WBC 22.3 H (3.8-10.6) k/uL RBC 3.91 L (4.30-5.90) m/uL Hgb 12.1 L (13.0-17.5) gm/dL Hct 38.4 L (39.0-53.0) % RDW 26.7 H (11.5-15.5) % Neutrophils # 20.8 H (1.3-7.7) k/uL Lymphocytes # 0.2 L (1.0-4.8) k/uL Macrocytosis Marked A Sodium 133 L (137-145) mmol/L BUN 31 H (9-20) mg/dL Glucose 130 H (74-99) mg/dL POC Glucose (mg/dL) 151 H (70-110) mg/dL Calcium 8.0 L (8.4-10.2) mg/dL 07/07/22 07/07/22 07/08/22 Range/Units 16:47 19:56 05:58 WBC (3.8-10.6) k/uL RBC (4.30-5.90) m/uL Hgb (13.0-17.5) gm/dL Hct (39.0-53.0) % RDW (11.5-15.5) % Neutrophils # (1.3-7.7) k/uL Lymphocytes # (1.0-4.8) k/uL Macrocytosis Sodium (137-145) mmol/L BUN (9-20) mg/dL Glucose (74-99) mg/dL POC Glucose (mg/dL) 151 H 187 H 132 H (70-110) mg/dL Calcium (8.4-10.2) mg/dL Microbiology - Last 24 Hours (Table) 07/05/22 15:10 Gram Stain - Final Sputum Sputum Culture - Final Assessment and Plan (1) Pneumonia Current Visit: Yes Status: Acute Code(s): J18.9 - PNEUMONIA, UNSPECIFIED ORGANISM SNOMED Code(s): 541710313 Plan: 1patient presented to hospital with increasing shortness of breath which is likely multifactorial in this patient who do have a history of emphysema also with a history of lung cancer now with evidence of right-sided loculated fluid concerning for possible empyema and has been in and out of the hospital we will need to cover for resistant gram-positive as well as gram-negative. 2patient clinical condition remains to be about the same with no significant improvement, patient did have a repeat CT chest completed on 07/01/2022 also showed some improvement 3-patient sputum culture has been repeated which are negative blood culture were negative as well, patient currently on broad-spectrum antibiotic in the form of Zosyn and Zyvox and monitor clinical course> Time with Patient: Less than 30
[2022-07-08] MEDS: LORazepam 1 MG TAB PO PRN ×2 (15:13→22:40)
[2022-07-08 16:37] LABS: Glucose,Whole Blood 142 mg/dL (70-110)
[2022-07-08 20:03] LABS: Glucose,Whole Blood 161 mg/dL (70-110)
[2022-07-08] MEDS: ATORVASTATIN 80 MG TAB PO SCH (20:55)
[2022-07-09] MEDS: methylPREDNISolone SOD SUCCI 125 MG/2 ML VIAL IV SCH ×5 (00:07→23:09)
[2022-07-09] MEDS: PIPERACILLIN-TAZOBACTAM 3.375 GM in SODIUM CHLORIDE 0.9% 100 ML IVPB SCH ×3 (02:33→16:56)
[2022-07-09 06:05] LABS: Glucose,Whole Blood 120 mg/dL (70-110)
[2022-07-09] MEDS: INSULIN ASPART (NovoLOG) 100 UNIT/ML VIAL SQ SCH ×4 (06:06→21:11)
[2022-07-09] MEDS: PANTOPRAZOLE 40 MG TABLET PO SCH (06:28)
[2022-07-09] MEDS: LORazepam 1 MG TAB PO PRN (06:28)
[2022-07-09 07:43] LABS: Anisocytosis Marked; Basophils % (A) 0 %; Eosinophils # (A) 0.2 k/uL (0-0.7); Eosinophils % (A) 1 %; HGB 12.3 gm/dL (13.0-17.5); Hypochromasia Slight; Lymphocytes # (A) 0.3 k/uL (1.0-4.8); Lymphocytes % (A) 1 %; MCH 31.4 pg (25.0-35.0); MCHC 31.6 g/dL (31.0-37.0); MCV 99.5 fL (80.0-100.0); Macrocytosis Marked; Monocytes # (A) 0.9 k/uL (0-1.0); Monocytes % (A) 3 %; Neutrophils % (A) 94 %; Platelet Count 182 k/uL (150-450); Poikilocytosis Slight; RBC 3.92 m/uL (4.30-5.90); WBC 25.4 k/uL (3.8-10.6)
[2022-07-09 07:54] LABS: RDW 25.5 % (11.5-15.5)
[2022-07-09 08:02] LABS: ALT 70 U/L (4-49); AST 59 U/L (17-59); African American GFR (CKD) >90 (>60 ml/min/1.73 sqM); Albumin 3.5 g/dL (3.5-5.0); Alkaline Phosphatase 93 U/L (38-126); Anion Gap 6 mmol/L; Blood Urea Nitrogen 27 mg/dL (9-20); Calcium 8.1 mg/dL (8.4-10.2); Carbon Dioxide 28 mmol/L (22-30); Chloride 101 mmol/L (98-107); Glucose 128 mg/dL (74-99); Non-African American GFR(CKD) >90 (>60 ml/min/1.73 sqM); Potassium 5.9 mmol/L (3.5-5.1); Sodium 135 mmol/L (137-145); Total Bilirubin 1.6 mg/dL (0.2-1.3)
[2022-07-09] MEDS: ALBUTEROL HFA INHALER INHALATION SCH ×4 (08:20→20:39)
[2022-07-09] MEDS: BUDESONIDE 1 MG/2 ML NEBU INHALATION SCH ×2 (08:20→20:24)
[2022-07-09] MEDS: TIOTROPIUM 2.5 MCG INHALER INHALATION SCH (08:20)
[2022-07-09] MEDS: FORMOTEROL FUMARATE 20 MCG/2 ML NEBU INHALATION SCH ×2 (08:20→20:24)
[2022-07-09] MEDS: LINEZOLID 600 MG TAB PO SCH ×2 (08:57→21:11)
[2022-07-09] MEDS: MAG HYDROX/AL HYDROX/SIMETH 30 ML, LIDOCAINE VISCOUS 2% 30 ML, diphenhydrAMINE ELIXIR 7... PO SCH ×12 (08:57→20:47)
[2022-07-09] MEDS: MULTIVITAMINS, THERA 1 EACH TAB PO SCH (08:58)
[2022-07-09] MEDS: FUROSEMIDE 10 MG/ML 2 ML VIAL IV SCH (08:58)
[2022-07-09] MEDS: METOPROLOL TARTRATE 12.5 MG TAB PO SCH ×2 (08:58→23:09)
[2022-07-09] MEDS: APIXABAN 5 MG TAB PO SCH ×2 (08:58→21:10)
[2022-07-09 11:03] LABS: RBC Fragments Present
[2022-07-09 11:46] LABS: Glucose,Whole Blood 175 mg/dL (70-110)
[2022-07-09] MEDS: ANIDULAFUNGIN 100 MG in SODIUM CHLORIDE 0.9% 100 ML IVPB SCH (12:33)
[2022-07-09] MEDS ORDERED: MORPHINE SULFATE 4 MG/ML SYRINGE IV PRN (13:14)
[2022-07-09] MEDS ORDERED: ONDANSETRON 4 MG/2 ML VIAL IVP PRN (13:14)
[2022-07-09] MEDS ORDERED: ATROPINE OPHTH SOLN 1% 5ML BTL SUBLINGUAL PRN (13:14)
--- NOTE | 2022-07-09 13:26 | P.PN ---
Subjective Progress Note Date: 07/09/22 Principal diagnosis: Limited stage small cell lung cancer -Noted to have increased hypoxia with increase in FiO2 from 70 to 90% on high flow nasal cannula -15 L nonrebreather has also been placed over high flow nasal cannula -Mr. Hernandez notes increased work of breathing, but denies any new signs or symptoms -CODE STATUS has been changed to no code by Mr. Hernandez and his family Objective - Vital Signs Vital signs: Vital Signs Temp 98.0 F 07/09/22 11:40 Pulse 124 H 07/09/22 11:40 Resp 24 07/09/22 11:40 BP 95/57 07/09/22 11:40 Pulse Ox 91 L 07/09/22 11:40 FiO2 90 07/09/22 11:40 Intake & Output 07/08/22 07/09/22 07/09/22 18:59 06:59 18:59 Intake Total 1194 330 Output Total 1200 725 Balance -6 -725 330 Intake: IV 10 Invasive Line 5 5 Invasive Line 6 5 Intake, IV Titration 200 Amount Anidulafungin 100 mg In 100 Sodium Chloride 0.9% 100 ml @ 84 mls/hr IVPB DAILY @1200 BHAVNA Rx#:[id number] Piperacillin-Tazobactam 3 100 .375 gm In Sodium Chloride 0.9% 100 ml @ 25 mls/hr IVPB Q8H BHAVNA Rx#: [id number] Oral 984 330 Output: Urine 1200 725 Other: Voiding Method Urinal Urinal Urinal # Voids 3 1 # Bowel Movements 1 - Constitutional Constitutional Comment(s): fatigued-appearing General appearance: Present: mild distress - EENT Eyes: Present: EOMI - Respiratory Respiratory: right: diminished ( decreased air sounds in the mid and lower right lung gleason compared to the left) - Cardiovascular Details: tachycardia Rhythm: regular - Gastrointestinal General gastrointestinal: Present: soft. Absent: distended - Integumentary Integumentary: Present: pale - Labs CBC & Chem 7: 07/09/22 07:27 07/09/22 07:27 Labs: Abnormal Lab Results - Last 24 Hours (Table) 07/08/22 07/08/22 07/09/22 Range/Units 16:35 20:02 06:03 WBC (3.8-10.6) k/uL RBC (4.30-5.90) m/uL Hgb (13.0-17.5) gm/dL RDW (11.5-15.5) % Neutrophils # (1.3-7.7) k/uL Lymphocytes # (1.0-4.8) k/uL Macrocytosis Sodium (137-145) mmol/L Potassium (3.5-5.1) mmol/L BUN (9-20) mg/dL Creatinine (0.66-1.25) mg/dL Glucose (74-99) mg/dL POC Glucose (mg/dL) 142 H 161 H 120 H (70-110) mg/dL Calcium (8.4-10.2) mg/dL Total Bilirubin (0.2-1.3) mg/dL ALT (4-49) U/L Total Protein (6.3-8.2) g/dL 07/09/22 07/09/22 07/09/22 Range/Units 07:27 07:27 11:45 WBC 25.4 H (3.8-10.6) k/uL RBC 3.92 L (4.30-5.90) m/uL Hgb 12.3 L (13.0-17.5) gm/dL RDW 25.5 H (11.5-15.5) % Neutrophils # 24.0 H (1.3-7.7) k/uL Lymphocytes # 0.3 L (1.0-4.8) k/uL Macrocytosis Marked A Sodium 135 L (137-145) mmol/L Potassium 5.9 H (3.5-5.1) mmol/L BUN 27 H (9-20) mg/dL Creatinine 0.55 L (0.66-1.25) mg/dL Glucose 128 H (74-99) mg/dL POC Glucose (mg/dL) 175 H (70-110) mg/dL Calcium 8.1 L (8.4-10.2) mg/dL Total Bilirubin 1.6 H (0.2-1.3) mg/dL ALT 70 H (4-49) U/L Total Protein 6.0 L (6.3-8.2) g/dL Assessment and Plan (1) Small cell lung cancer Current Visit: Yes Status: Acute Priority: High Code(s): C34.90 - MALIGNANT NEOPLASM OF UNSP PART OF UNSP BRONCHUS OR LUNG SNOMED Code(s): 057493724 Plan: Small cell lung cancer: -Completed 3rd cycle of Carbo-EAP SPECIALIST on 05/30-06/01 with addition of GCSF, given 06/02. XRT treatment is complete. Treatment currently delayed to low counts and hospital admissions. -Plan was to hold treatment and reassess in 2 weeks. If he was doing better then may consider completing last cycle of chemo, possibly dose reduction. Chemotherapy induced anemia -Hgb 12.3, no acute intervention, will continue to monitor counts Neutrophilic leukocytosis -Secondary to IV steroid use -No acute intervention required Shortness of breath at rest -Pulse ox 83% this morning, pt is on airvo and NRB. Conversational dyspnea noted -Patient is being followed by pulmonology and infectious disease. Blood cultures negative. He is continued on IV steroids and scheduled DuoNeb treatments. Currently being treated with Zosyn and Eraxis. On Eliquis for hx of PE, CTA chest 06/26, showed no evidence of current PE -CT of the chest on 07/01/2022 did note thick walled collection of pleural fluid with ID noting potential for empyema with no evidence of disease progression -Definitive management of empyema would potentially include chest tube -At this time, Mr. Hernandez and his family do not want any aggressive medical interventions to be pursued -If Mr. Hernandez does decide to pursue additional treatment, repeat CT of the chest should be considered given progressive hypoxia
[2022-07-09] MEDS: LORazepam 2 MG/ML INJ IV PRN ×2 (13:32→21:11)
[2022-07-09] MEDS ORDERED: SCOPOLAMINE 1 MG/72 HR PATCH TRANSDERM SCH (14:00)
[2022-07-09] MEDS ORDERED: MORPHINE SULFATE (100 MG/2 ML) 100 MG in SODIUM CHLORIDE 0.9% 100 ML IV SCH (14:00)
--- NOTE | 2022-07-09 14:18 | P.PN ---
Subjective Progress Note Date: 07/09/22 A 62-year-old male patient with severe bullous emphysema, a chronic smoker is more than [id number] smoking history. 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 Postop course was complicated by development of chylothorax for which a Pleurx catheter was inserted and ultimately this was removed. His postop course was also complicated by development of pulmonary embolism and the patient was treated with anticoagulants and the patient continues to be on anti-coagulation with Eliquis. PET/CT that was done on 03/18/2022 showed progression of his disease with increase in the size and the metabolic activity of the mediastinal mass/lymphadenopathy. Based on that, the patient was started on treatment and the patient was given systemic chemotherapy with a combination of carboplatinum and [employer]-16. He also completed radiation therapy. Since then, the patient's health has been in generally getting worse. He was hospitalized back in early June with worsening shortness of breath. At that time, he was having issues related to chemotherapy toxicity with pancytopenia. He was quite leukopenic and he was also anemic. His platelet count also dropped. During his hospital stay, the patient gradually improved and he was ultimately discharged home on oxygen. During his hospital stay, he also had a transient ischemic attack with some left-sided weakness. And neuro workup was done including a CT angiogram of the brain that showed no acute abnormalities. The patient ultimately recovered and he was started on aspirate 1 mg by mouth daily. Anti-coagulation was resumed. During this current hospitalization admission, the patient noticed that he was getting more hypoxic. Even with limited amount of activity, his pulse ox was dropping and his oxygen requirements gradually we will going up and he was using 5 L oxygen by nasal cannula. He decided to come into the hospital because of worsening shortness of breath. In the emergency, the patient was found to be quite short of breath. He had minimal amount of sputum production. No fever or chills. No reported chest pain. He was quite dyspneic. No altered mentation. Immediately, a CT angiogram was done and this rules out the possibility of pulmonary embolism. There was new areas of infiltration of the right lower lobe compared to the previous CAT scan and there was also tumor encasement of the right pulmonary artery on the posterior wall. There was also tumor encasement of the right lower lobe pulmonary vein and there was bilateral enlarged lymph nodes at the level of the abdirizak. The mass and the lymphadenopathy appears to have increased in size compared to the earlier examination. This is based on the radiologist's report. Patient is currently on high flow oxygen at 10 L in addition to a nonrebreather facemask. His current pulse ox 100%. WBC count is at 8 with a hemoglobin 9.2 and a platelet count of 188. Normal coagulation profile. D-dimer is at 1.27. Influenza screen, Covid 19 screen and RSV were all negative. He was started on IV Solu-Medrol. Is on DuoNeb about treatments [id number]. He was also started on IV cefepime and vancomycin is to be added. No major swelling in the lower extremities bilaterally. Today's evaluation of 06/28/2022, the patient is currently in the intensive care unit currently on high flow oxygen at 60 L with an FiO2 of 90%. He seems a more comfortable compared to yesterday. Breathing is less labored and his pulse ox is around 96-98%. Chest x-ray still showing bilateral pulmonary infiltrates most on the right lung and there is some infiltration of the left. Based on his immunosuppression frequent hospitalizations, the patient was started on a combination of cefepime and vancomycin. Currently is afebrile. He is hemodynamically stable. Cardiac rhythm is sinus. His echoes at 15.7 with a hemoglobin of 8.1 and a platelet count of 189. Sodium is at 139 with a potassium level of 3.9. BUN is at 70 with a creatinine of 0.5. Pro-calcitonin level is still pending. LFTs are mildly elevated with an AST of 61, ALT of 81, alkaline phosphatase of 92. His albumin level is at 2.7. No major swelling in lower extremities. Remains on anticoagulants with Eliquis. Remains on bronchodilators. Remains on IV Solu-Medrol 60 mg every 6 hours 06/29/2022, the patient is being seen for a follow-up. Remains on high flow oxygen with 60 L with an FiO2 of 80%. Chest x-ray findings of essentially unchanged. Bilateral pulmonary infiltrates worse on the right and the patient also has a chronic right-sided pleural effusion. In terms of antibiotic coverage, he is on a combination of cefepime and vancomycin for now. His pro calcitonin level was 0.06. He remains on bronchodilators. He remains on steroids. He is using the incentive spirometer and falling approximately 2000. In terms of his white count, he is white count is at 12.5 with a hemoglobin 8.3 and a platelet count of 213. Sodium is at 135, potassium is 4.7, BUN 19 and a creatinine of 0.6. Cultures are all negative including sputum and blood. His viral screen was also negative. His breathing is still labored. He desaturates upon talking. Nevertheless, one breathing through his nose, is able to maintain a saturation above 90%. His current pulse ox is around 93%. No significant tachycardia. Mild tachypnea. He is not using it is a muscle breathing. He is tolerating his diet for now. Extreme 2022, the patient is on high flow oxygen at 5 L with an FiO2 of 70%. Remains on broad-spectrum antibiotic and antifungal agents. He is currently on a combination of Zosyn, vancomycin, Levaquin and Eraxis. No positive cultures. Chest x-ray findings of essentially unchanged. The pro-calcitonin level was low. No blood work from today. The blood work from yesterday was noted. He is supposed to have a CBC and a basic metabolic profile. His speech is improved. Is able to speak longer sentences. His pulse ox is around 91-92% on the above-mentioned settings. He remains on IV steroids. Fluid balance has been in the order of 930 mL negative. The patient is tolerating diet. No aspiration. Legionella urine antigen came back negative. 07/01/2022, the patient remains on high flow oxygen at 60 L an FiO2 of 60%. He desaturates rather easily. Chest x-ray findings of essentially unchanged. Clinically unchanged and the patient is not showing any significant progress over the past few days. Meanwhile, he is on a broad-spectrum antibiotic c overage and the patient is currently on IV Zosyn, IV vancomycin, IV Eraxis, and by mouth Levaquin. He is afebrile. He is hemodynamically stable. His WBC count of 15.8 with a hemoglobin of 8.9. BUN is at 24 with a creatinine of 0.7 and a sodium level is at 134. Mental status is adequate. Moving all 4 extremities. Using the [employer] spirometer. 07/02/2022, patient remains on high flow oxygen. He remains on 60 L with an FiO2 of 60%. Based on his ongoing issues with oxygen desaturation, I repeated his CAT scan of the chest. I reviewed the CAT scan and as expected the patient has advanced emphysema with diffuse COPD changes throughout the lung gleason bilaterally. There is also some narrowing in the pulmonary artery branches and this favored chronic thromboemboli involving the right lower lobe pulmonary artery branches. There is an area of large fluid collection which is chronic measuring 10 x 3.6 cm in size in the posterior right lung base. There is also residual but improving airspace disease in the right midlung suggestive of an improving pneumonia. There is also evidence of mediastinal lymphadenopathy consistent with his underlying history of small cell lung cancer. As such, there is some limited improvement in his pneumonia. There is also chronic thromboemboli involving the right lower lobe pulmonary artery branch. The patient continues to be on broad-spectrum antibiotics. He is currently receiving a combination of antibiotics including Eraxis, Zosyn, Levaquin and vancomycin. He remains on IV Solu-Medrol 60 mg every 6 hours. Cultures are all negative. In terms of his blood work, there are all pending from today. His vancomycin trough level is at 18. He is sitting up on a chair. His pulse ox is 88% on the current high flow settings. He desaturates easily. However he does recover. Mental status is adequate. His tolerating his diet. Reevaluated today on 07/04/2022, patient remains in the ICU, maintained on a nonrebreather mask, airvo at 60 L and 55% FiO2. Patient is maximized on antibiotics and antifungal he is on Zosyn and Levaquin and vancomycin and Eraxis these are being addressed by infectious disease on the case. Clinically the patient is marginal at best, if he does not improve, may require intubation and mechanical ventilation. Continues to have leukocytosis with WBC of 19.9 hemoglobin 10.80 left lites are normal renal profile is normal. 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 Remains on antibiotics as per infectious disease on the case, no major issues over the last 24 hours. WBC count is 17.2 hemoglobin 11.2 in left lites are normal renal profile is normal chest x-ray continues to show definite infiltrate in the right lower lung, left sided infiltrate opacities seems to be chronic and slightly increased. Chronic small right-sided pleural effusion remains about the same. Reevaluated today on 07/06/22, patient remains in the ICU, remains on high flow on desai and high FiO2. Patient is on 60 L flow and 70% FiO2 and his O2 saturation is 96%. Hence will go down to 60% FiO2 and 60 L flow. Patient is basically about the same, his chest x-ray is also about the same with a right- sided pleural effusion and infiltrate in the left lower lobe. Remains on multiple antibiotics and on steroids, not much of an improvement clinically or radiographically over the last 2 weeks since admission WBC count is 19.3 hemoglobin 11.7. Renal profile is normal. Sputum cultures from yesterday are pending. The patient is seen today 07/07/2022 in follow-up on the selective care unit. He is currently sitting up in a chair at the bedside. Awake and alert in no acute distress. He is still dyspneic with minimal conversation. Dyspnea with minimal exertion. Remains on AirVo high flow oxygen at 60 L and 60% FiO2 along with a nonrebreather mask to maintain O2 saturations in the upper 80s and lower 90s. Cultures reveal no growth. Sputum cultures revealed no growth 2. White count 22.3. Hemoglobin 12.1. Platelets 236. Sodium 133. Potassium 4.4. Bicarb 20. BUN 31. Creatinine 0.66. Glucose 130. Pro-calcitonin 0.09. He is continued on Pulmicort and Perforomist inhalations, Ventolin and Spiriva inhalations, IV Solu-Medrol. Remains on antibiotics in the form of Zyvox and Zosyn. Anticoagulated with Eliquis. Currently on Lasix 20 mg IV daily. He is currently in a -600 ML balance. The patient is seen today 07/08/2022 in follow-up on the selective care unit. He is awake and alert. He is sitting up in a chair at the bedside. He is breathing is about the same today compared to yesterday. Continues on AirVo high flow oxygen at 60 L and 70% FiO2 plus a nonrebreather mask to maintain O2 saturations in the low 90s. He is still having issues with some anxiety. Blood cultures revealed no growth. Sputum culture revealed no growth. Glucose 132. He is continued on Pulmicort and Perforomist inhalations, Ventolin and Spiriva inhalations, IV Solu-Medrol. Remains on antibiotics in the form of Zyvox and Zosyn. Remains on Eraxis. Anticoagulated with Eliquis. Currently on Lasix 20 mg IV daily. Currently in a -990 ML balance. Blood sugar 132. No new labs today. The patient is seen today 07/09/2022 in follow-up on the selective care unit. He is currently sitting up in a chair at the bedside. He is dyspneic with minimal exertion. Dyspneic with minimal conversation. He is back on 60 L and 90% FiO2 via the AirVo high flow oxygen along with a nonrebreather mask O2 saturations in the high 80s low 90s. He is afebrile. Tachycardic. Blood cultures revealed no growth. Sputum culture revealed no growth. White count 25.4. Hemoglobin 12.3. Platelets 182. Sodium 135. Potassium 5.9. Bicarb 28. BUN 27. Creatinine 0.55. Blood sugar 128. Currently in a -730 ML balance. He remains on IV Lasix 20 mg daily. He is continued on Pulmicort and Perforomist inhalations, Ventolin and Spiriva inhalations, IV Solu-Medrol. Remains on antibiotics in the form of Zyvox and Zosyn. Remains on Eraxis. Anticoagulated with Eliquis. Objective - Vital Signs Vital signs: Vital Signs Temp 98.0 F 07/09/22 11:40 Pulse 124 H 07/09/22 11:40 Resp 24 07/09/22 11:40 BP 95/57 07/09/22 11:40 Pulse Ox 91 L 07/09/22 11:40 FiO2 92 07/09/22 13:54 Intake & Output 07/08/22 07/09/22 07/09/22 18:59 06:59 18:59 Intake Total 1194 330 Output Total 1200 725 Balance -6 725 330 Intake: IV 10 Invasive Line 5 5 Invasive Line 6 5 Intake, IV Titration 200 Amount Anidulafungin 100 mg In 100 Sodium Chloride 0.9% 100 ml @ 84 mls/hr IVPB DAILY @1200 [facility] Rx#:[id number] Piperacillin-Tazobactam 3 100 .375 gm In Sodium Chloride 0.9% 100 ml @ 25 mls/hr IVPB Q8H [facility] Rx#: [id number] Oral 984 330 Output: Urine 1200 725 Other: Voiding Method Urinal Urinal Urinal # Voids 3 1 # Bowel Movements 1 - Exam GENERAL EXAM: Alert, anxious 62-year-old male, and AirVo high flow oxygen 60 L and 90% FiO2 along with a nonrebreather mask, fairly comfortable in no apparent distress. HEAD: Normocephalic. EYES: Normal reaction of pupils, equal size. NOSE: Clear with pink turbinates. THROAT: No erythema or exudates. NECK: No masses, no JVD. CHEST: No chest wall deformity. LUNGS: Equal air entry with bibasilar crackles with scattered rhonchi. Dyspnea with exertion, dyspnea with minimal conversation. CVS: S1 and S2 normal with no audible murmur, regular rhythm. ABDOMEN: No hepatosplenomegaly, normal bowel sounds, no guarding or rigidity. SPINE: No scoliosis or deformity SKIN: No rashes CENTRAL NERVOUS SYSTEM: No focal deficits, tone is normal in all 4 extremities. EXTREMITIES: There is no peripheral edema. No clubbing, no cyanosis. Peripheral pulses are intact. - Labs CBC & Chem 7: 07/09/22 07:27 07/09/22 07:27 Labs: Abnormal Lab Results - Last 24 Hours (Table) 07/08/22 07/08/22 07/09/22 Range/Units 16:35 20:02 06:03 WBC (3.8-10.6) k/uL RBC (4.30-5.90) m/uL Hgb (13.0-17.5) gm/dL RDW (11.5-15.5) % Neutrophils # (1.3-7.7) k/uL Lymphocytes # (1.0-4.8) k/uL Macrocytosis Sodium (137-145) mmol/L Potassium (3.5-5.1) mmol/L BUN (9-20) mg/dL Creatinine (0.66-1.25) mg/dL Glucose (74-99) mg/dL POC Glucose (mg/dL) 142 H 161 H 120 H (70-110) mg/dL Calcium (8.4-10.2) mg/dL Total Bilirubin (0.2-1.3) mg/dL ALT (4-49) U/L Total Protein (6.3-8.2) g/dL 07/09/22 07/09/22 07/09/22 Range/Units 07:27 07:27 11:45 WBC 25.4 H (3.8-10.6) k/uL RBC 3.92 L (4.30-5.90) m/uL Hgb 12.3 L (13.0-17.5) gm/dL RDW 25.5 H (11.5-15.5) % Neutrophils # 24.0 H (1.3-7.7) k/uL Lymphocytes # 0.3 L (1.0-4.8) k/uL Macrocytosis Marked A Sodium 135 L (137-145) mmol/L Potassium 5.9 H (3.5-5.1) mmol/L BUN 27 H (9-20) mg/dL Creatinine 0.55 L (0.66-1.25) mg/dL Glucose 128 H (74-99) mg/dL POC Glucose (mg/dL) 175 H (70-110) mg/dL Calcium 8.1 L (8.4-10.2) mg/dL Total Bilirubin 1.6 H (0.2-1.3) mg/dL ALT 70 H (4-49) U/L Total Protein 6.0 L (6.3-8.2) g/dL Assessment and Plan Assessment: Acute hypoxic respiratory failure, multifactorial secondary to below, remains on AirVo high flow oxygen at 60 L and 90% FiO2 plus a nonrebreather mask Acute right lower lobe pneumonia, possibly hospital-acquired pneumonia Chronic right-sided pleural effusion and previous history of chylothorax. Unchanged in size. Remains on IV diuretics Advanced COPD. Underlying interstitial lung disease is to be considered. Squamous cell carcinoma requiring a right lower lobectomy T3 N0 M0 Small cell lung cancer with positive subcarinal nodes, patient finished chemotherapy and radiation therapy History of pulmonary embolism, remains on Xarelto pulmonary embolism occurred following thoracotomy and right lower lobe resection Chemotherapy-induced leukopenia Chronic anemia, chemotherapy-induced. Generalized weakness and medical debility History of radiation esophagitis. History of chylothorax. History of underlying coronary artery disease with previous stent of LAD Plan: The patient was seen and evaluated Medications and labs reviewed He continues with increasing oxygen requirements Remains fatigued and dyspneic with minimal exertion He states he would not want to go on life support He did discuss this with his family He is now a DO NOT RESUSCITATE/DO NOT INTUBATE CODE STATUS Continue the current treatment plan for now We will continue to follow I have personally seen and examined the patient, performed the documentation and the assessment and plan as written. Number of minutes spent on the visit: 10.
[2022-07-09] MEDS ORDERED: INSULIN REGULAR 100 UNIT/ML VIAL (IV) IV ONE (16:20)
[2022-07-09] MEDS ORDERED: DEXTROSE 50% SYRINGE 50 ML IVP STA (16:21)
[2022-07-09 16:36] LABS: Glucose,Whole Blood 155 mg/dL (70-110)
[2022-07-09 17:41] LABS: ABG Base Excess 0.1 mmol/L; ABG HCO3 24 mmol/L (21-25); ABG Oxygen Saturation 93.4 % (94-97); ABG PCO2 34 mmHg (35-45); ABG PH 7.46 (7.35-7.45); ABG PO2 64 mmHg (83-108); ABG TCO2 25 mmol/L (19-24); Allen Test Performed? Yes
[2022-07-09 21:05] LABS: Glucose,Whole Blood 131 mg/dL (70-110)
[2022-07-09] MEDS: ATORVASTATIN 80 MG TAB PO SCH (21:11)
--- NOTE | 2022-07-09 22:07 | P.PN ---
Subjective Progress Note Date: 07/07/22 Patient is a 62-year-old male with a known history of COPD, small cell lung cancer and squamous cell lung cancer status post right lobectomy, chylothorax status post Pleurx catheter insertion and removal, pulmonary embolism and recent PET scan showing progression of the disease and is being treated with systemic chemotherapy and underwent radiation therapy presents to ER due to worsening shortness of breath. 07/02/2022 Patient is in the MICU. Currently on Airvo at 60 L and 60% FiO2. Patient. CT chest done yesterday showed COPD with advanced emphysema and pulmonary arterial hypertension. Redemonstrated soft tissue thickening posterior wall of the right lower lobe pulmonary artery branch and resulting mild luminal narrowing. Chronic thick-walled pleural fluid collection at the posterior right base. Groundglass changes throughout the lower lungs appear similar. Patient is being continued broad-spectrum antibiotics Levaquin Zosyn and vancomycin and also on Eraxis. Currently on IV steroids. Laboratory data showed WBC 14.7 hemoglobin 10.4, MCV 96.2 and platelets 262 sodium 133 potassium 3.9 chloride 101 bicarb is 27 BUN 29 and creatinine 0.58 and calcium 7.9. 07/03/2022 Patient remains in the MICU. Currently on 60 L at FiO2 60%. Sitting which is comfortable. Awake alert and oriented x3. No complaints of chest pain or worsening shortness of breath. No cough or sputum production. Patient remains on broad-spectrum antibiotics and Eraxis. Also on anticoagulation with Eliquis. Continued on IV steroids and DuoNebs. Patient also on IV Lasix 20 mg daily. Laboratory data showed creatinine level 0.58 and blood sugar is controlled. ID and pulmonary is on board. 07/04/2022 Patient is in the MICU. Currently on high flow oxygen 60 L at 55% FiO2. Awake alert and oriented x3. No complaints of chest pain. No fever no chills. Patient is being continued broad-spectrum antibiotics, vancomycin changed to Zyvox. Currently on Zosyn and Levaquin. Also on Eraxis Patient is being current on IV steroids and DuoNebs and Pulmicort inhalation. Also being continued Lasix 20 mg IV daily. Pulmonary and ID is on board.. Laboratory data showed WBC 19.9 hemoglobin 10.8 and platelets 265 sodium 135 potassium 4.4 chloride 102 bicarb is 29 BUN 24 and creatinine 0.58 and calcium 8.2. Albumin 3.3. 07/05/2022 Patient remains in the MICU. Currently requiring high flow oxygen at 60 L and 60% FiO2. Sitting in the chair comfortably. Awake alert and oriented x3. No acute distress. Also on broad-spectrum antibiotics. Laboratory data showed WBC 17.2 hemoglobin 11.1 platelets 235 Sodium 132 potassium 4.6 BUN 24 and creatinine 0.64 and calcium 8.1. Hemodynamically stable. Chest x-ray today showed right lower lobe infiltrate appears to be getting better. Left-sided increased opacity may be chronic. Pleural effusion is suspected. Repeat CT scan of the chest or ultrasound of the right lower lung lobes may be considered for further evaluation of the pleural fluid. 07/06/2022 Patient is in the MICU. Remains on high flow oxygen. Currently at 60 L at 70% FiO2. Breathing status remains the same. No complaints of chest pain or worsening shortness of breath. Patient has been afebrile. Patient was having some swelling of the left lower extremity but improved after action his legs. Patient is sitting in the chair most of the time. Currently anticoagulation with Eliquis due to history of PE. Continued on broad-spectrum antibiotics. And also Eraxis. Also on IV steroids. Chest x-ray showed no significant change. Laboratory data showed WBC 19.3 hemoglobin 11.7 and platelets 254 neutrophils 17.7 BUN 27 creatinine 0.7 and procalcitonin level is 0.09 and magnesium 2.4. 07/07/2022 Patient is currently sitting in the chair. Awake alert and oriented x3. Still requiring oxygen high flow at 60% FiO2 and 60 L. Patient is using 100% nonrebreather intermittently. Denies any complaints of chest pain. Exertional dyspnea without much improvement. Afebrile. Patient is being current on antibiotics and home of Zosyn and Zyvox. No complaints of nausea or vomiting. Patient is also on IV Solu-Medrol, DuoNebs, Pulmicort and Perforomist inhalations. Also on IV Lasix 20 mg daily. Laboratory data showed WBC 22.3 hemoglobin 12.1 and platelets 236 Sodium 133 potassium 4.4 chloride 99 bicarb is 28 BUN 31 and creatinine 0.6 Blood sugar is 130. Calcium 8.0. Sputum culture and blood cultures have been negative. Pulmonary and ID is on board. Current medications reviewed. Objective - Vital Signs Vital signs: Vital Signs Temp 97.4 F L 07/07/22 08:00 Pulse 108 H 07/07/22 08:43 Resp 18 07/07/22 08:00 BP 117/70 07/07/22 08:00 Pulse Ox 83 L 07/07/22 08:00 FiO2 60 07/07/22 08:23 Intake & Output 07/06/22 07/07/22 07/07/22 18:59 06:59 18:59 Intake Total 1252 40 118 Output Total 450 1450 Balance 802 -1410 118 Weight 71.5 kg Intake: IV 160 40 .9NS 20 Anidulafungin 100 mg In 100 Sodium Chloride 0.9% 100 ml @ 84 mls/hr IVPB DAILY @1200 [facility] Rx#:[id number] Invasive Line 5 20 20 Invasive Line 6 20 20 Oral 1092 118 Output: Urine 450 1450 Other: Voiding Method Urinal Urinal # Bowel Movements 1 1 - Exam PHYSICAL EXAMINATION: Patient is lying in the bed comfortably, no acute distress, awake alert and oriented.. HEENT: Normocephalic. Neck is supple. Pupils reactive. Nostrils clear. Oral cavity is moist. Neck reveals no JVD, carotid bruits, or thyromegaly. CHEST EXAMINATION: Trachea is central. Symmetrical expansion. Bilateral decreased air movement and scattered crackles. No wheezing or rhonchi.. CARDIAC: Normal S1, S2 with no gallops. No murmurs ABDOMEN: Soft. Bowel sounds present. Nontender. No organomegaly. No abdominal bruits. Extremities: reveal no edema. No clubbing or cyanosis Neurologically awake, alert, oriented x3 with well-coordinated movements. No focal deficits noted Skin: No rash or skin lesions. Psychiatric: Coperative. Nonsuicidal, Musculoskeletal: No joint swelling or deformity. Normal range of motion. - Labs CBC & Chem 7: 07/09/22 07:27 07/09/22 07:27 Labs: Abnormal Lab Results - Last 24 Hours (Table) 07/06/22 07/06/22 07/06/22 Range/Units 11:35 16:31 19:54 POC Glucose (mg/dL) 179 H 152 H 205 H (70-110) mg/dL 07/07/22 Range/Units 05:53 POC Glucose (mg/dL) 128 H (70-110) mg/dL Microbiology - Last 24 Hours (Table) 07/05/22 15:10 Gram Stain - Preliminary Sputum Sputum Culture - Preliminary Assessment and Plan Assessment: Acute right lower lobe pneumonia pneumonia. Repeat CT chest showed improvement in the right lower lobe pneumonia and loculated right-sided pleural effusion and extensive emphysematous/bullous changes and mediastinal lymphadenopathy Acute hypoxic respiratory failure currently requiring high flow oxygen via AIRVO Advanced COPD and chronic hypoxic respiratory failure on 2 L oxygen at home. Squamous cell carcinoma and small cell lung cancer status post right lower lobe resection and on chemotherapy and completed radiation therapy. History of PE History of right chylothorax status post Pleurx catheter placement and removal Generalized weakness Coronary with history of stent placement DVT prophylaxis patient is already on anticoagulation Plan: Patient will be continued on high flow oxygen at 60 L and 60% FiO2. Currently on broad-spectrum antibiotics, Eraxis and IV steroids. On DuoNebs and Pulmicort, Perforomist. Anticoagulation with Eliquis Blood cultures negative. ID and pulmonary is on board. DVT prophylaxis on Protonix. Continue to follow closely. Prognosis is guarded at this time. Time with Patient: Greater than 30
--- NOTE | 2022-07-09 22:10 | P.PN ---
Subjective Progress Note Date: 07/08/22 Patient is a 62-year-old male with a known history of COPD, small cell lung cancer and squamous cell lung cancer status post right lobectomy, chylothorax status post Pleurx catheter insertion and removal, pulmonary embolism and recent PET scan showing progression of the disease and is being treated with systemic chemotherapy and underwent radiation therapy presents to ER due to worsening shortness of breath. 07/02/2022 Patient is in the MICU. Currently on Airvo at 60 L and 60% FiO2. Patient. CT chest done yesterday showed COPD with advanced emphysema and pulmonary arterial hypertension. Redemonstrated soft tissue thickening posterior wall of the right lower lobe pulmonary artery branch and resulting mild luminal narrowing. Chronic thick-walled pleural fluid collection at the posterior right base. Groundglass changes throughout the lower lungs appear similar. Patient is being continued broad-spectrum antibiotics Levaquin Zosyn and vancomycin and also on Eraxis. Currently on IV steroids. Laboratory data showed WBC 14.7 hemoglobin 10.4, MCV 96.2 and platelets 262 sodium 133 potassium 3.9 chloride 101 bicarb is 27 BUN 29 and creatinine 0.58 and calcium 7.9. 07/03/2022 Patient remains in the MICU. Currently on 60 L at FiO2 60%. Sitting which is comfortable. Awake alert and oriented x3. No complaints of chest pain or worsening shortness of breath. No cough or sputum production. Patient remains on broad-spectrum antibiotics and Eraxis. Also on anticoagulation with Eliquis. Continued on IV steroids and DuoNebs. Patient also on IV Lasix 20 mg daily. Laboratory data showed creatinine level 0.58 and blood sugar is controlled. ID and pulmonary is on board. 07/04/2022 Patient is in the MICU. Currently on high flow oxygen 60 L at 55% FiO2. Awake alert and oriented x3. No complaints of chest pain. No fever no chills. Patient is being continued broad-spectrum antibiotics, vancomycin changed to Zyvox. Currently on Zosyn and Levaquin. Also on Eraxis Patient is being current on IV steroids and DuoNebs and Pulmicort inhalation. Also being continued Lasix 20 mg IV daily. Pulmonary and ID is on board.. Laboratory data showed WBC 19.9 hemoglobin 10.8 and platelets 265 sodium 135 potassium 4.4 chloride 102 bicarb is 29 BUN 24 and creatinine 0.58 and calcium 8.2. Albumin 3.3. 07/05/2022 Patient remains in the MICU. Currently requiring high flow oxygen at 60 L and 60% FiO2. Sitting in the chair comfortably. Awake alert and oriented x3. No acute distress. Also on broad-spectrum antibiotics. Laboratory data showed WBC 17.2 hemoglobin 11.1 platelets 235 Sodium 132 potassium 4.6 BUN 24 and creatinine 0.64 and calcium 8.1. Hemodynamically stable. Chest x-ray today showed right lower lobe infiltrate appears to be getting better. Left-sided increased opacity may be chronic. Pleural effusion is suspected. Repeat CT scan of the chest or ultrasound of the right lower lung lobes may be considered for further evaluation of the pleural fluid. 07/06/2022 Patient is in the MICU. Remains on high flow oxygen. Currently at 60 L at 70% FiO2. Breathing status remains the same. No complaints of chest pain or worsening shortness of breath. Patient has been afebrile. Patient was having some swelling of the left lower extremity but improved after action his legs. Patient is sitting in the chair most of the time. Currently anticoagulation with Eliquis due to history of PE. Continued on broad-spectrum antibiotics. And also Eraxis. Also on IV steroids. Chest x-ray showed no significant change. Laboratory data showed WBC 19.3 hemoglobin 11.7 and platelets 254 neutrophils 17.7 BUN 27 creatinine 0.7 and procalcitonin level is 0.09 and magnesium 2.4. 07/07/2022 Patient is currently sitting in the chair. Awake alert and oriented x3. Still requiring oxygen high flow at 60% FiO2 and 60 L. Patient is using 100% nonrebreather intermittently. Denies any complaints of chest pain. Exertional dyspnea without much improvement. Afebrile. Patient is being current on antibiotics and home of Zosyn and Zyvox. No complaints of nausea or vomiting. Patient is also on IV Solu-Medrol, DuoNebs, Pulmicort and Perforomist inhalations. Also on IV Lasix 20 mg daily. Laboratory data showed WBC 22.3 hemoglobin 12.1 and platelets 236 Sodium 133 potassium 4.4 chloride 99 bicarb is 28 BUN 31 and creatinine 0.6 Blood sugar is 130. Calcium 8.0. Sputum culture and blood cultures have been negative. Pulmonary and ID is on board. 07/08/2022 Patient is currently sitting in the chair. In the select care unit. No complaints of chest pain. Still having exertional dyspnea with minimal ambulation. Requiring high flow oxygen 60 L and 70% FiO2. Blood cultures and sputum cultures have been negative. Continue IV Lasix 20 mg daily and, Solu-Medrol IV, breathing treatments and broad-spectrum antibiotic in the form of Zosyn and Zyvox. Also on Eraxis. Patient has been afebrile. No nausea vomiting abdominal pain or diarrhea. No sputum production. Pulmonary and ID is on board. Patient still anxious otherwise. Current medications reviewed. Objective - Vital Signs Vital signs: Vital Signs Temp 97.8 F 07/08/22 16:15 Pulse 120 H 07/08/22 20:28 Resp 24 07/08/22 19:48 BP 101/64 07/08/22 19:48 Pulse Ox 94 L 07/08/22 20:14 FiO2 90 07/08/22 20:14 Intake & Output 07/08/22 07/08/22 07/09/22 06:59 18:59 06:59 Intake Total 40 1194 Output Total 950 1200 Balance -910 -6 Intake: IV 40 10 Invasive Line 5 20 5 Invasive Line 6 20 5 Intake, IV Titration 200 Amount Anidulafungin 100 mg In 100 Sodium Chloride 0.9% 100 ml @ 84 mls/hr IVPB DAILY @1200 [facility] Rx#:[id number] Piperacillin-Tazobactam 3 100 .375 gm In Sodium Chloride 0.9% 100 ml @ 25 mls/hr IVPB Q8H [facility] Rx#: [id number] Oral 984 Output: Urine 950 1200 Other: Voiding Method Urinal Urinal Urinal # Voids 1 3 1 # Bowel Movements 1 - Exam PHYSICAL EXAMINATION: Patient is lying in the bed comfortably, no acute distress, awake alert and oriented.. HEENT: Normocephalic. Neck is supple. Pupils reactive. Nostrils clear. Oral cavity is moist. Neck reveals no JVD, carotid bruits, or thyromegaly. CHEST EXAMINATION: Trachea is central. Symmetrical expansion. Bilateral decreased air movement and scattered crackles. No wheezing or rhonchi.. CARDIAC: Normal S1, S2 with no gallops. No murmurs ABDOMEN: Soft. Bowel sounds present. Nontender. No organomegaly. No abdominal bruits. Extremities: reveal no edema. No clubbing or cyanosis Neurologically awake, alert, oriented x3 with well-coordinated movements. No focal deficits noted Skin: No rash or skin lesions. Psychiatric: Coperative. Nonsuicidal, Musculoskeletal: No joint swelling or deformity. Normal range of motion. - Labs CBC & Chem 7: 07/09/22 07:27 07/09/22 07:27 Labs: Abnormal Lab Results - Last 24 Hours (Table) 07/08/22 07/08/22 07/08/22 Range/Units 05:58 16:35 20:02 POC Glucose (mg/dL) 132 H 142 H 161 H (70-110) mg/dL Assessment and Plan Assessment: Acute right lower lobe pneumonia pneumonia. Repeat CT chest showed improvement in the right lower lobe pneumonia and loculated right-sided pleural effusion and extensive emphysematous/bullous changes and mediastinal lymphadenopathy Acute hypoxic respiratory failure currently requiring high flow oxygen via AIRVO Advanced COPD and chronic hypoxic respiratory failure on 2 L oxygen at home. Squamous cell carcinoma and small cell lung cancer status post right lower lobe resection and on chemotherapy and completed radiation therapy. History of PE History of right chylothorax status post Pleurx catheter placement and removal Generalized weakness Coronary with history of stent placement DVT prophylaxis patient is already on anticoagulation Plan: Patient will be continued on high flow oxygen at 60 L and 70% FiO2. Currently on broad-spectrum antibiotics, Eraxis and IV steroids. On DuoNebs and Pulmicort, Perforomist. Anticoagulation with Eliquis Blood cultures negative. ID and pulmonary is on board. DVT prophylaxis on Protonix. Continue to follow closely. Prognosis is guarded at this time. Time with Patient: Greater than 30
--- NOTE | 2022-07-09 22:16 | P.PN ---
Subjective Progress Note Date: 07/09/22 Patient is a 62-year-old male with a known history of COPD, small cell lung cancer and squamous cell lung cancer status post right lobectomy, chylothorax status post Pleurx catheter insertion and removal, pulmonary embolism and recent PET scan showing progression of the disease and is being treated with systemic chemotherapy and underwent radiation therapy presents to ER due to worsening shortness of breath. 07/02/2022 Patient is in the MICU. Currently on Airvo at 60 L and 60% FiO2. Patient. CT chest done yesterday showed COPD with advanced emphysema and pulmonary arterial hypertension. Redemonstrated soft tissue thickening posterior wall of the right lower lobe pulmonary artery branch and resulting mild luminal narrowing. Chronic thick-walled pleural fluid collection at the posterior right base. Groundglass changes throughout the lower lungs appear similar. Patient is being continued broad-spectrum antibiotics Levaquin Zosyn and vancomycin and also on Eraxis. Currently on IV steroids. Laboratory data showed WBC 14.7 hemoglobin 10.4, MCV 96.2 and platelets 262 sodium 133 potassium 3.9 chloride 101 bicarb is 27 BUN 29 and creatinine 0.58 and calcium 7.9. 07/03/2022 Patient remains in the MICU. Currently on 60 L at FiO2 60%. Sitting which is comfortable. Awake alert and oriented x3. No complaints of chest pain or worsening shortness of breath. No cough or sputum production. Patient remains on broad-spectrum antibiotics and Eraxis. Also on anticoagulation with Eliquis. Continued on IV steroids and DuoNebs. Patient also on IV Lasix 20 mg daily. Laboratory data showed creatinine level 0.58 and blood sugar is controlled. ID and pulmonary is on board. 07/04/2022 Patient is in the MICU. Currently on high flow oxygen 60 L at 55% FiO2. Awake alert and oriented x3. No complaints of chest pain. No fever no chills. Patient is being continued broad-spectrum antibiotics, vancomycin changed to Zyvox. Currently on Zosyn and Levaquin. Also on Eraxis Patient is being current on IV steroids and DuoNebs and Pulmicort inhalation. Also being continued Lasix 20 mg IV daily. Pulmonary and ID is on board.. Laboratory data showed WBC 19.9 hemoglobin 10.8 and platelets 265 sodium 135 potassium 4.4 chloride 102 bicarb is 29 BUN 24 and creatinine 0.58 and calcium 8.2. Albumin 3.3. 07/05/2022 Patient remains in the MICU. Currently requiring high flow oxygen at 60 L and 60% FiO2. Sitting in the chair comfortably. Awake alert and oriented x3. No acute distress. Also on broad-spectrum antibiotics. Laboratory data showed WBC 17.2 hemoglobin 11.1 platelets 235 Sodium 132 potassium 4.6 BUN 24 and creatinine 0.64 and calcium 8.1. Hemodynamically stable. Chest x-ray today showed right lower lobe infiltrate appears to be getting better. Left-sided increased opacity may be chronic. Pleural effusion is suspected. Repeat CT scan of the chest or ultrasound of the right lower lung lobes may be considered for further evaluation of the pleural fluid. 07/06/2022 Patient is in the MICU. Remains on high flow oxygen. Currently at 60 L at 70% FiO2. Breathing status remains the same. No complaints of chest pain or worsening shortness of breath. Patient has been afebrile. Patient was having some swelling of the left lower extremity but improved after action his legs. Patient is sitting in the chair most of the time. Currently anticoagulation with Eliquis due to history of PE. Continued on broad-spectrum antibiotics. And also Eraxis. Also on IV steroids. Chest x-ray showed no significant change. Laboratory data showed WBC 19.3 hemoglobin 11.7 and platelets 254 neutrophils 17.7 BUN 27 creatinine 0.7 and procalcitonin level is 0.09 and magnesium 2.4. 07/07/2022 Patient is currently sitting in the chair. Awake alert and oriented x3. Still requiring oxygen high flow at 60% FiO2 and 60 L. Patient is using 100% nonrebreather intermittently. Denies any complaints of chest pain. Exertional dyspnea without much improvement. Afebrile. Patient is being current on antibiotics and home of Zosyn and Zyvox. No complaints of nausea or vomiting. Patient is also on IV Solu-Medrol, DuoNebs, Pulmicort and Perforomist inhalations. Also on IV Lasix 20 mg daily. Laboratory data showed WBC 22.3 hemoglobin 12.1 and platelets 236 Sodium 133 potassium 4.4 chloride 99 bicarb is 28 BUN 31 and creatinine 0.6 Blood sugar is 130. Calcium 8.0. Sputum culture and blood cultures have been negative. Pulmonary and ID is on board. 07/08/2022 Patient is currently sitting in the chair. In the select care unit. No complaints of chest pain. Still having exertional dyspnea with minimal ambulation. Requiring high flow oxygen 60 L and 70% FiO2. Blood cultures and sputum cultures have been negative. Continue IV Lasix 20 mg daily and, Solu-Medrol IV, breathing treatments and broad-spectrum antibiotic in the form of Zosyn and Zyvox. Also on Eraxis. Patient has been afebrile. No nausea vomiting abdominal pain or diarrhea. No sputum production. Pulmonary and ID is on board. Patient still anxious otherwise. 07/09/2022 Patient is currently in the 70s clear urine. CT of the chest. Awake alert and oriented but very anxious. Shortness of breath with minimal exertion and is requiring 60 L oxygen with 90% FiO2 and saturating at high 80s. Afebrile oth erwise. Patient is being continued IV Solu-Medrol, broad-spectrum antibiotics and Eraxis. Also on anticoagulation with Eliquis. Patient is getting DuoNebs and IV Lasix also. Laboratory data showed WBC count 25.4 and hemoglobin 12.3 and platelets 182 Neutrophils 24.0 Sodium 134 potassium 5.9, BUN 27 creatinine 0.55 and blood sugar is 128. Total bilirubin level is 1.6 and calcium 8.1 ALT 17 alk phos 93 and total protein 6.0 and albumin 3.5. Current medications reviewed. Objective - Vital Signs Vital signs: Vital Signs Temp 98.0 F 07/09/22 16:09 Pulse 133 H 07/09/22 16:09 Resp 24 07/09/22 16:09 BP 91/60 07/09/22 16:09 Pulse Ox 91 L 07/09/22 16:09 FiO2 90 07/09/22 16:09 Intake & Output 07/08/22 07/09/22 07/09/22 18:59 06:59 18:59 Intake Total 1194 330 Output Total 1200 725 Balance -6 -725 330 Intake: IV 10 Invasive Line 5 5 Invasive Line 6 5 Intake, IV Titration 200 Amount Anidulafungin 100 mg In 100 Sodium Chloride 0.9% 100 ml @ 84 mls/hr IVPB DAILY @1200 [facility] Rx#:[id number] Piperacillin-Tazobactam 3 100 .375 gm In Sodium Chloride 0.9% 100 ml @ 25 mls/hr IVPB Q8H [facility] Rx#: [id number] Oral 984 330 Output: Urine 1200 725 Other: Voiding Method Urinal Urinal Urinal # Voids 3 1 # Bowel Movements 1 - Exam PHYSICAL EXAMINATION: Patient is lying in the bed comfortably, no acute distress, awake alert and oriented.. HEENT: Normocephalic. Neck is supple. Pupils reactive. Nostrils clear. Oral cavi ty is moist. Neck reveals no JVD, carotid bruits, or thyromegaly. CHEST EXAMINATION: Trachea is central. Symmetrical expansion. Bilateral decreased air movement and scattered crackles. No wheezing or rhonchi.. CARDIAC: Normal S1, S2 with no gallops. No murmurs ABDOMEN: Soft. Bowel sounds present. Nontender. No organomegaly. No abdominal bruits. Extremities: reveal no edema. No clubbing or cyanosis Neurologically awake, alert, oriented x3 with well-coordinated movements. No focal deficits noted Skin: No rash or skin lesions. Psychiatric: Coperative. Nonsuicidal, Musculoskeletal: No joint swelling or deformity. Normal range of motion. - Labs CBC & Chem 7: 07/09/22 07:27 07/09/22 07:27 Labs: Abnormal Lab Results - Last 24 Hours (Table) 07/08/22 07/08/22 07/09/22 Range/Units 16:35 20:02 06:03 WBC (3.8-10.6) k/uL RBC (4.30-5.90) m/uL Hgb (13.0-17.5) gm/dL RDW (11.5-15.5) % Neutrophils # (1.3-7.7) k/uL Lymphocytes # (1.0-4.8) k/uL Macrocytosis Sodium (137-145) mmol/L Potassium (3.5-5.1) mmol/L BUN (9-20) mg/dL Creatinine (0.66-1.25) mg/dL Glucose (74-99) mg/dL POC Glucose (mg/dL) 142 H 161 H 120 H (70-110) mg/dL Calcium (8.4-10.2) mg/dL Total Bilirubin (0.2-1.3) mg/dL ALT (4-49) U/L Total Protein (6.3-8.2) g/dL 07/09/22 07/09/22 07/09/22 Range/Units 07:27 07:27 11:45 WBC 25.4 H (3.8-10.6) k/uL RBC 3.92 L (4.30-5.90) m/uL Hgb 12.3 L (13.0-17.5) gm/dL RDW 25.5 H (11.5-15.5) % Neutrophils # 24.0 H (1.3-7.7) k/uL Lymphocytes # 0.3 L (1.0-4.8) k/uL Macrocytosis Marked A Sodium 135 L (137-145) mmol/L Potassium 5.9 H (3.5-5.1) mmol/L BUN 27 H (9-20) mg/dL Creatinine 0.55 L (0.66-1.25) mg/dL Glucose 128 H (74-99) mg/dL POC Glucose (mg/dL) 175 H (70-110) mg/dL Calcium 8.1 L (8.4-10.2) mg/dL Total Bilirubin 1.6 H (0.2-1.3) mg/dL ALT 70 H (4-49) U/L Total Protein 6.0 L (6.3-8.2) g/dL Assessment and Plan Assessment: Acute right lower lobe pneumonia pneumonia. Repeat CT chest showed improvement in the right lower lobe pneumonia and loculated right-sided pleural effusion and extensive emphysematous/bullous changes and mediastinal lymphadenopathy Acute hypoxic respiratory failure currently requiring high flow oxygen via AIRVO Advanced COPD and chronic hypoxic respiratory failure on 2 L oxygen at home. Squamous cell carcinoma and small cell lung cancer status post right lower lobe resection and on chemotherapy and completed radiation therapy. History of PE History of right chylothorax status post Pleurx catheter placement and removal Generalized weakness Coronary with history of stent placement DVT prophylaxis patient is already on anticoagulation Plan: Patient will be continued on high flow oxygen at 60 L and 90% FiO2.Patient is maxed out on oxygen and saturating at upper 80s. Currently on broad-spectrum antibiotics, Eraxis and IV steroids. On DuoNebs and Pulmicort, Perforomist. Anticoagulation with Eliquis Blood cultures negative. ID and pulmonary is on board. DVT prophylaxis on Protonix. Due to patient being severely dyspneic with minimal exertion even with high flow oxygen, discussed with the patient and his at bedside in detail. Patient is agreeable to change of CODE STATUS. Currently DNR/DNI. Does not want intubation. Prognosis poor at this time. Time with Patient: Greater than 30
[2022-07-10] MEDS: PIPERACILLIN-TAZOBACTAM 3.375 GM in SODIUM CHLORIDE 0.9% 100 ML IVPB SCH ×2 (01:50→09:50)
[2022-07-10] MEDS: LORazepam 2 MG/ML INJ IV PRN ×3 (03:17→15:19)
[2022-07-10 04:59] LABS: Anisocytosis Marked; HCT 35.6 % (39.0-53.0); HGB 11.3 gm/dL (13.0-17.5); Hypochromasia Slight; MCH 31.7 pg (25.0-35.0); MCHC 31.7 g/dL (31.0-37.0); MCV 99.9 fL (80.0-100.0); Macrocytosis Marked; Mean Platelet Volume 8.5; Platelet Count 143 k/uL (150-450); Poikilocytosis Slight; RBC 3.56 m/uL (4.30-5.90); WBC 19.8 k/uL (3.8-10.6)
[2022-07-10 05:05] LABS: RDW 25.5 % (11.5-15.5)
[2022-07-10 05:18] LABS: African American GFR (CKD) >90 (>60 ml/min/1.73 sqM); Anion Gap 5 mmol/L; Blood Urea Nitrogen 32 mg/dL (9-20); Calcium 7.9 mg/dL (8.4-10.2); Carbon Dioxide 26 mmol/L (22-30); Chloride 105 mmol/L (98-107); Glucose 147 mg/dL (74-99); Non-African American GFR(CKD) >90 (>60 ml/min/1.73 sqM); Potassium 4.4 mmol/L (3.5-5.1); Sodium 136 mmol/L (137-145)
[2022-07-10 06:31] LABS: Glucose,Whole Blood 137 mg/dL (70-110)
[2022-07-10] MEDS: methylPREDNISolone SOD SUCCI 125 MG/2 ML VIAL IV SCH ×2 (06:31→12:46)
[2022-07-10] MEDS: INSULIN ASPART (NovoLOG) 100 UNIT/ML VIAL SQ SCH ×2 (06:31→12:50)
[2022-07-10] MEDS: PANTOPRAZOLE 40 MG TABLET PO SCH (06:31)
[2022-07-10] MEDS: MAG HYDROX/AL HYDROX/SIMETH 30 ML, LIDOCAINE VISCOUS 2% 30 ML, diphenhydrAMINE ELIXIR 7... PO SCH ×4 (07:08)
--- NOTE | 2022-07-10 08:37 | XR ---
EXAMINATION TYPE: XR chest 1V portable DATE OF EXAM: 07/10/2022 COMPARISON: 07/06/2022 INDICATION: Assess lungs previous abnormal chest TECHNIQUE: Single frontal view of the chest is obtained. FINDINGS: The heart size is normal. The pulmonary vasculature is normal. Bibasilar infiltrates are present. Small right pleural effusion is present. Findings can be superimpo sed on pulmonary fibrosis. IMPRESSION: 1. Right basilar infiltrates worsening from comparison. 2. Small right pleural effusion
[2022-07-10] MEDS: FORMOTEROL FUMARATE 20 MCG/2 ML NEBU INHALATION SCH (08:51)
[2022-07-10] MEDS: TIOTROPIUM 2.5 MCG INHALER INHALATION SCH (08:51)
[2022-07-10] MEDS: ALBUTEROL HFA INHALER INHALATION SCH ×3 (08:51→15:11)
[2022-07-10] MEDS: BUDESONIDE 1 MG/2 ML NEBU INHALATION SCH (08:51)
[2022-07-10] MEDS: FUROSEMIDE 10 MG/ML 2 ML VIAL IV SCH (09:44)
[2022-07-10] MEDS: MULTIVITAMINS, THERA 1 EACH TAB PO SCH (09:48)
[2022-07-10] MEDS: METOPROLOL TARTRATE 12.5 MG TAB PO SCH (09:49)
[2022-07-10] MEDS: APIXABAN 5 MG TAB PO SCH (09:49)
[2022-07-10] MEDS: LINEZOLID 600 MG TAB PO SCH (10:16)
--- NOTE | 2022-07-10 11:27 | P.PN ---
Subjective Progress Note Date: 07/09/22 Principal diagnosis: Pneumonia Patient is a 62-year-old male with a past medical history significant for emphysema chronic smoker and also small cell lung cancer as well as squamous cell cancer of the lung status post right lower lobectomy postop course complicated by chylothorax for the Pleurx catheter has been placed also with a history of PE, patient presented to the hospital with increasing shortness of breath and hypoxemia CT with evidence of extensive infiltrate right lower lobe and loculated effusion. On today's evaluation that is 07/09/2022, patient remains to be afebrile , the patient is complaining of more shortness of breath on exertion and is asking if his oxygen can be bumped up currently on 90% requiring a nonrebreather as well, the patient denies any worsening cough or any sputum, no nausea no vomiting no abdominal pain or diarrhea Objective - Vital Signs Vital signs: Vital Signs Temp 98.0 F 07/09/22 08:00 Pulse 112 H 07/09/22 08:37 Resp 20 07/09/22 08:00 BP 108/65 07/09/22 08:00 Pulse Ox 93 L 07/09/22 08:00 FiO2 90 07/09/22 08:23 Intake & Output 07/08/22 07/09/22 07/09/22 18:59 06:59 18:59 Intake Total 1194 330 Output Total 1200 725 Balance -6 -725 330 Intake: IV 10 Invasive Line 5 5 Invasive Line 6 5 Intake, IV Titration 200 Amount Anidulafungin 100 mg In 100 Sodium Chloride 0.9% 100 ml @ 84 mls/hr IVPB DAILY @1200 [facility] Rx#:[id number] Piperacillin-Tazobactam 3 100 .375 gm In Sodium Chloride 0.9% 100 ml @ 25 mls/hr IVPB Q8H [facility] Rx#: [id number] Oral 984 330 Output: Urine 1200 725 Other: Voiding Method Urinal Urinal # Voids 3 1 - Exam GENERAL DESCRIPTION: A middle-age male up in the chair in no distress RESPIRATORY SYSTEM: Unlabored breathing , coarse breath sounds bilaterally HEART: S1 S2 regular rate and rhythm , ABDOMEN: Soft , no tenderness EXTREMITIES: No edema feet - Labs CBC & Chem 7: 07/10/22 03:56 07/10/22 03:56 Labs: Abnormal Lab Results - Last 24 Hours (Table) 07/08/22 07/08/22 07/09/22 Range/Units 16:35 20:02 06:03 WBC (3.8-10.6) k/uL RBC (4.30-5.90) m/uL Hgb (13.0-17.5) gm/dL RDW (11.5-15.5) % Macrocytosis Sodium (137-145) mmol/L Potassium (3.5-5.1) mmol/L BUN (9-20) mg/dL Creatinine (0.66-1.25) mg/dL Glucose (74-99) mg/dL POC Glucose (mg/dL) 142 H 161 H 120 H (70-110) mg/dL Calcium (8.4-10.2) mg/dL Total Bilirubin (0.2-1.3) mg/dL ALT (4-49) U/L Total Protein (6.3-8.2) g/dL 07/09/22 07/09/22 Range/Units 07:27 07:27 WBC 25.4 H (3.8-10.6) k/uL RBC 3.92 L (4.30-5.90) m/uL Hgb 12.3 L (13.0-17.5) gm/dL RDW 25.5 H (11.5-15.5) % Macrocytosis Marked A Sodium 135 L (137-145) mmol/L Potassium 5.9 H (3.5-5.1) mmol/L BUN 27 H (9-20) mg/dL Creatinine 0.55 L (0.66-1.25) mg/dL Glucose 128 H (74-99) mg/dL POC Glucose (mg/dL) (70-110) mg/dL Calcium 8.1 L (8.4-10.2) mg/dL Total Bilirubin 1.6 H (0.2-1.3) mg/dL ALT 70 H (4-49) U/L Total Protein 6.0 L (6.3-8.2) g/dL Assessment and Plan (1) Pneumonia Current Visit: Yes Status: Acute Code(s): J18.9 - PNEUMONIA, UNSPECIFIED ORGANISM SNOMED Code(s): 347314231 Plan: 1patient presented to hospital with increasing shortness of breath which is likely multifactorial in this patient who do have a history of emphysema also with a history of lung cancer now with evidence of right-sided loculated fluid concerning for possible empyema and has been in and out of the hospital we will need to cover for resistant gram-positive as well as gram-negative. 2patient clinical condition remains to be about the same with no significant improvement, patient did have a repeat CT chest completed on 07/01/2022 also showed some improvement 3-patient sputum culture has been repeated which are negative blood culture were negative as well 4-patient did have slight worsening of his respiratory status, he is currently on broad-spectrum antibiotic in the form of Zosyn and Zyvox which will be continued and monitor clinical course closely Time with Patient: Less than 30
--- NOTE | 2022-07-10 11:28 | P.PN ---
Subjective Progress Note Date: 07/10/22 Principal diagnosis: Pneumonia Patient is a 62-year-old male with a past medical history significant for emphysema chronic smoker and also small cell lung cancer as well as squamous cell cancer of the lung status post right lower lobectomy postop course complicated by chylothorax for the Pleurx catheter has been placed also with a history of PE, patient presented to the hospital with increasing shortness of breath and hypoxemia CT with evidence of extensive infiltrate right lower lobe and loculated effusion. On today's evaluation that is 07/10/2022, patient continues to be afebrile , the patient did have worsening of his respiratory status requiring transfer to the ICU currently 100% FiO2 nonrebreather patient is lethargic and unable to provide any history, no vomiting diarrhea or any other changes reported by the nursing staff Objective - Vital Signs Vital signs: Vital Signs Temp 97.2 F L 07/10/22 09:00 Pulse 124 H 07/10/22 10:00 Resp 28 H 07/10/22 10:00 BP 105/73 07/10/22 10:00 Pulse Ox 88 L 07/10/22 10:00 FiO2 100 07/10/22 09:00 Intake & Output 07/09/22 07/10/22 07/10/22 18:59 06:59 18:59 Intake Total 330 390 75 Output Total 720 Balance 330 -330 75 Weight 70.3 kg Intake: IV 390 50 .9NS 390 50 Intake, IV Titration 25 Amount Piperacillin-Tazobactam 3 25 .375 gm In Sodium Chloride 0.9% 100 ml @ 25 mls/hr IVPB Q8H [facility] Rx#: [id number] Oral 330 Output: Urine 720 Other: Voiding Method Urinal Urinal # Voids 2 # Bowel Movements 2 - Exam GENERAL DESCRIPTION: A middle-age male up in the chair in no distress RESPIRATORY SYSTEM: Unlabored breathing , decreased intensity of breath sounds HEART: S1 S2 regular rate and rhythm , ABDOMEN: Soft , no tenderness EXTREMITIES: No edema feet - Labs CBC & Chem 7: 07/10/22 03:56 07/10/22 03:56 Labs: Abnormal Lab Results - Last 24 Hours (Table) 07/09/22 07/09/22 07/09/22 Range/Units 07:27 11:45 16:34 WBC (3.8-10.6) k/uL RBC (4.30-5.90) m/uL Hgb (13.0-17.5) gm/dL Hct (39.0-53.0) % RDW (11.5-15.5) % Plt Count (150-450) k/uL Neutrophils # 24.0 H (1.3-7.7) k/uL Lymphocytes # 0.3 L (1.0-4.8) k/uL Macrocytosis ABG pH (7.35-7.45) ABG pCO2 (35-45) mmHg ABG pO2 (83-108) mmHg ABG Total CO2 (19-24) mmol/L ABG O2 Saturation (94-97) % Sodium (137-145) mmol/L BUN (9-20) mg/dL Creatinine (0.66-1.25) mg/dL Glucose (74-99) mg/dL POC Glucose (mg/dL) 175 H 155 H (70-110) mg/dL Calcium (8.4-10.2) mg/dL 07/09/22 07/09/22 07/10/22 Range/Units 17:39 21:03 03:56 WBC 19.8 H (3.8-10.6) k/uL RBC 3.56 L (4.30-5.90) m/uL Hgb 11.3 L (13.0-17.5) gm/dL Hct 35.6 L (39.0-53.0) % RDW 25.5 H (11.5-15.5) % Plt Count 143 L (150-450) k/uL Neutrophils # (1.3-7.7) k/uL Lymphocytes # (1.0-4.8) k/uL Macrocytosis Marked A ABG pH 7.46 H (7.35-7.45) ABG pCO2 34 L (35-45) mmHg ABG pO2 64 L (83-108) mmHg ABG Total CO2 25 H (19-24) mmol/L ABG O2 Saturation 93.4 L (94-97) % Sodium (137-145) mmol/L BUN (9-20) mg/dL Creatinine (0.66-1.25) mg/dL Glucose (74-99) mg/dL POC Glucose (mg/dL) 131 H (70-110) mg/dL Calcium (8.4-10.2) mg/dL 07/10/22 07/10/22 Range/Units 03:56 06:29 WBC (3.8-10.6) k/uL RBC (4.30-5.90) m/uL Hgb (13.0-17.5) gm/dL Hct (39.0-53.0) % RDW (11.5-15.5) % Plt Count (150-450) k/uL Neutrophils # (1.3-7.7) k/uL Lymphocytes # (1.0-4.8) k/uL Macrocytosis ABG pH (7.35-7.45) ABG pCO2 (35-45) mmHg ABG pO2 (83-108) mmHg ABG Total CO2 (19-24) mmol/L ABG O2 Saturation (94-97) % Sodium 136 L (137-145) mmol/L BUN 32 H (9-20) mg/dL Creatinine 0.58 L (0.66-1.25) mg/dL Glucose 147 H (74-99) mg/dL POC Glucose (mg/dL) 137 H (70-110) mg/dL Calcium 7.9 L (8.4-10.2) mg/dL Assessment and Plan (1) Pneumonia Current Visit: Yes Status: Acute Code(s): J18.9 - PNEUMONIA, UNSPECIFIED ORGANISM SNOMED Code(s): 961258742 Plan: 1patient presented to hospital with increasing shortness of breath which is likely multifactorial in this patient who do have a history of emphysema also with a history of lung cancer now with evidence of right-sided loculated fluid concerning for possible empyema and has been in and out of the hospital we will need to cover for resistant gram-positive as well as gram-negative. 2patient clinical condition remains to be about the same with no significant improvement, patient did have a repeat CT chest completed on 07/01/2022 also showed some improvement 3-patient sputum culture has been repeated which are negative, the patient blood culture were negative as well 4-patient did have slight worsening of his respiratory status, with overall poor prognosis may benefit from comfort oriented care, to continue with Zosyn and Zyvox for now and monitor clinical course closely Time with Patient: Less than 30
[2022-07-10 11:42] LABS: Glucose,Whole Blood 135 mg/dL (70-110)
--- NOTE | 2022-07-10 12:23 | P.PN ---
Subjective Progress Note Date: 07/10/22 Principal diagnosis: Acute hypoxic respiratory failure, multifactorial. A 62-year-old male patient with severe bullous emphysema, a chronic smoker is more than [id number] smoking history. 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 Postop course was complicated by development of chylothorax for which a Pleurx catheter was inserted and ultimately this was removed. His postop course was also complicated by development of pulmonary embolism and the patient was treated with anticoagulants and the patient continues to be on anti-coagulation with Eliquis. PET/CT that was done on 03/18/2022 showed progression of his disease with increase in the size and the metabolic activity of the mediastinal mass/lymphadenopathy. Based on that, the patient was started on treatment and the patient was given systemic chemotherapy with a combination of carboplatinum and [employer]-16. He also completed radiation therapy. Since then, the patient's health has been in generally getting worse. He was hospitalized back in early June with worsening shortness of breath. At that time, he was having issues related to chemotherapy toxicity with pancytopenia. He was quite leukopenic and he was also anemic. His platelet count also dropped. During his hospital stay, the patient gradually improved and he was ultimately discharged home on oxygen. During his hospital stay, he also had a transient ischemic attack with some left-sided weakness. And neuro workup was done including a CT angiogram of the brain that showed no acute abnormalities. The patient ultimately recovered and he was started on aspirate 1 mg by mouth daily. Anti-coagulation was resumed. During this current hospitalization admission, the patient noticed that he was getting more hypoxic. Even with limited amount of activity, his pulse ox was dropping and his oxygen requirements gradually we will going up and he was using 5 L oxygen by nasal cannula. He decided to come into the hospital because of worsening shortness of breath. In the emergency, the patient was found to be quite short of breath. He had minimal amount of sputum production. No fever or chills. No reported chest pain. He was quite dyspneic. No altered mentation. Immediately, a CT angiogram was done and this rules out the possibility of pulmonary embolism. There was new areas of infiltration of the right lower lobe compared to the previous CAT scan and there was also tumor encasement of the right pulmonary artery on the posterior wall. There was also tumor encasement of the right lower lobe pulmonary vein and there was bilateral enlarged lymph nodes at the level of the abdirizak. The mass and the lymphadenopathy appears to have increased in size compared to the earlier examination. This is based on the radiologist's report. Patient is currently on high flow oxygen at 10 L in addition to a nonrebreather facemask. His current pulse ox 100%. WBC count is at 8 with a hemoglobin 9.2 and a platelet count of 188. Normal coagulation profile. D-dimer is at 1.27. Influenza screen, Covid 19 screen and RSV were all negative. He was started on IV Solu-Medrol. Is on DuoNeb about treatments [id number]. He was also started on IV cefepime and vancomycin is to be added. No major swelling in the lower extremities bilaterally. Today's evaluation of 06/28/2022, the patient is currently in the intensive care unit currently on high flow oxygen at 60 L with an FiO2 of 90%. He seems a more comfortable compared to yesterday. Breathing is less labored and his pulse ox is around 96-98%. Chest x-ray still showing bilateral pulmonary infiltrates most on the right lung and there is some infiltration of the left. Based on his immunosuppression frequent hospitalizations, the patient was started on a combination of cefepime and vancomycin. Currently is afebrile. He is hemodynamically stable. Cardiac rhythm is sinus. His echoes at 15.7 with a hemoglobin of 8.1 and a platelet count of 189. Sodium is at 139 with a potassium level of 3.9. BUN is at 70 with a creatinine of 0.5. Pro-calcitonin level is still pending. LFTs are mildly elevated with an AST of 61, ALT of 81, alkaline phosphatase of 92. His albumin level is at 2.7. No major swelling in lower extremities. Remains on anticoagulants with Eliquis. Remains on bronchodilators. Remains on IV Solu-Medrol 60 mg every 6 hours 06/29/2022, the patient is being seen for a follow-up. Remains on high flow oxygen with 60 L with an FiO2 of 80%. Chest x-ray findings of essentially unchanged. Bilateral pulmonary infiltrates worse on the right and the patient also has a chronic right-sided pleural effusion. In terms of antibiotic coverage, he is on a combination of cefepime and vancomycin for now. His pro calcitonin level was 0.06. He remains on bronchodilators. He remains on steroids. He is using the incentive spirometer and falling approximately 2000. In terms of his white count, he is white count is at 12.5 with a hemoglobin 8.3 and a platelet count of 213. Sodium is at 135, potassium is 4.7, BUN 19 and a creatinine of 0.6. Cultures are all negative including sputum and blood. His viral screen was also negative. His breathing is still labored. He desaturates upon talking. Nevertheless, one breathing through his nose, is able to maintain a saturation above 90%. His current pulse ox is around 93%. No significant tachycardia. Mild tachypnea. He is not using it is a muscle breathing. He is tolerating his diet for now. Extreme 2022, the patient is on high flow oxygen at 5 L with an FiO2 of 70%. Remains on broad-spectrum antibiotic and antifungal agents. He is currently on a combination of Zosyn, vancomycin, Levaquin and Eraxis. No positive cultures. Chest x-ray findings of essentially unchanged. The pro-calcitonin level was low. No blood work from today. The blood work from yesterday was noted. He is supposed to have a CBC and a basic metabolic profile. His speech is improved. Is able to speak longer sentences. His pulse ox is around 91-92% on the above-mentioned settings. He remains on IV steroids. Fluid balance has been in the order of 930 mL negative. The patient is tolerating diet. No aspiration. Legionella urine antigen came back negative. 07/01/2022, the patient remains on high flow oxygen at 60 L an FiO2 of 60%. He desaturates rather easily. Chest x-ray findings of essentially unchanged. Clinically unchanged and the patient is not showing any significant progress over the past few days. Meanwhile, he is on a broad-spectrum antibiotic co verage and the patient is currently on IV Zosyn, IV vancomycin, IV Eraxis, and by mouth Levaquin. He is afebrile. He is hemodynamically stable. His WBC count of 15.8 with a hemoglobin of 8.9. BUN is at 24 with a creatinine of 0.7 and a sodium level is at 134. Mental status is adequate. Moving all 4 extremities. Using the senna spirometer. 07/02/2022, patient remains on high flow oxygen. He remains on 60 L with an FiO2 of 60%. Based on his ongoing issues with oxygen desaturation, I repeated his CAT scan of the chest. I reviewed the CAT scan and as expected the patient has advanced emphysema with diffuse COPD changes throughout the lung gleason bilaterally. There is also some narrowing in the pulmonary artery branches and this favored chronic thromboemboli involving the right lower lobe pulmonary artery branches. There is an area of large fluid collection which is chronic measuring 10 x 3.6 cm in size in the posterior right lung base. There is also residual but improving airspace disease in the right midlung suggestive of an improving pneumonia. There is also evidence of mediastinal lymphadenopathy consistent with his underlying history of small cell lung cancer. As such, there is some limited improvement in his pneumonia. There is also chronic thromboemboli involving the right lower lobe pulmonary artery branch. The patient continues to be on broad-spectrum antibiotics. He is currently receiving a combination of antibiotics including Eraxis, Zosyn, Levaquin and vancomycin. He remains on IV Solu-Medrol 60 mg every 6 hours. Cultures are all negative. In terms of his blood work, there are all pending from today. His vancomycin trough level is at 18. He is sitting up on a chair. His pulse ox is 88% on the current high flow settings. He desaturates easily. However he does recover. Mental status is adequate. His tolerating his diet. Reevaluated today on 07/04/2022, patient remains in the ICU, maintained on a nonrebreather mask, airvo at 60 L and 55% FiO2. Patient is maximized on antibiotics and antifungal he is on Zosyn and Levaquin and vancomycin and Eraxis these are being addressed by infectious disease on the case. Clinically the patient is marginal at best, if he does not improve, may require intubation and mechanical ventilation. Continues to have leukocytosis with WBC of 19.9 hemoglobin 10.80 left lites are normal renal profile is normal. 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 Remains on antibiotics as per infectious disease on the case, no major issues over the last 24 hours. WBC count is 17.2 hemoglobin 11.2 in left lites are normal renal profile is normal chest x-ray continues to show definite infiltrate in the right lower lung, left sided infiltrate opacities seems to be chronic and slightly increased. Chronic small right-sided pleural effusion remains about the same. Reevaluated today on 07/06/22, patient remains in the ICU, remains on high flow on desai and high FiO2. Patient is on 60 L flow and 70% FiO2 and his O2 saturation is 96%. Hence will go down to 60% FiO2 and 60 L flow. Patient is basically about the same, his chest x-ray is also about the same with a right- sided pleural effusion and infiltrate in the left lower lobe. Remains on multiple antibiotics and on steroids, not much of an improvement clinically or radiographically over the last 2 weeks since admission WBC count is 19.3 hemoglobin 11.7. Renal profile is normal. Sputum cultures from yesterday are pending. Reevaluated today on 07/10/2022, patient was sent back to the ICU yesterday mostly because of changing CODE STATUS to full code although the patient was DO NOT RESUSCITATE CODE STATUS. Apparently the admitting physician discussed his condition with him, and he agreed to comfort care measures. Patient was started on Ativan and morphine, however after the nurse discussed his comfort care sacha ures with the daughter, CODE STATUS was changed to full code, and the patient pulmonary status was marginal, I was notified about this patient, and I felt the patient may need to be intubated hence I recommended transfer to ICU. I evaluated the patient today, and discussed the CODE STATUS with him and with his daughter at bedside, and they both are agreeable to DO NOT RESUSCITATE CODE STATUS. I explained to the patient that his condition seems to be terminal and he has not made a bit of improvement since he was admitted almost few weeks ago. Continues to require significant amount of oxygen continues to be marginal at best, and his overall clinical condition seems to be deteriorating. 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 Daughter and the patient are both agreeable to go back to DO NOT RESUSCITATE CODE STATUS and they will discuss among themselves possible comfort care measures in the next couple of days. Patient remains on high flow airvo, high FiO2, and nonrebreather mask. And again his oxygenation is very marginal mostly in the 80s. ABG yesterday on the same setting showed a pO2 of 64 pCO2 34 pH of 7.46. Chest x-ray continues to show right basilar infiltrate/worsening and small right-sided pleural effusion also shows nonspecific interstitial changes bilaterally. Objective - Vital Signs Vital signs: Vital Signs Temp 97.2 F L 07/10/22 09:00 Pulse 124 H 07/10/22 10:00 Resp 28 H 07/10/22 10:00 BP 105/73 07/10/22 10:00 Pulse Ox 88 L 07/10/22 10:00 FiO2 94 07/10/22 11:09 Intake & Output 07/09/22 07/10/22 07/10/22 18:59 06:59 18:59 Intake Total 330 390 75 Output Total 720 Balance 330 -330 75 Weight 70.3 kg Intake: IV 390 50 .9NS 390 50 Intake, IV Titration 25 Amount Piperacillin-Tazobactam 3 25 .375 gm In Sodium Chloride 0.9% 100 ml @ 25 mls/hr IVPB Q8H [facility] Rx#: [id number] Oral 330 Output: Urine 720 Other: Voiding Method Urinal Urinal # Voids 2 # Bowel Movements 2 - Exam Physical Exam: Revealed a 62-year-old white male in no distress, on airvo 90% FiO2 and 60 L along with nonrebreather mask patient looks extremely frail and cachectic chronically ill. Head: Atraumatic, normocephalic. HEENT:[Neck is supple.] [No neck masses.] [No thyromegaly.] [No JVD.] Chest: Minimal crackles at the bases no rhonchi and no wheezes Cardiac Exam: [Normal S1 and S2, no S3 gallop, no murmur.] Abdomen: [Soft, nontender, no megaly, no rebound, no guarding, normal bowel sounds.] Extremities: [No clubbing, no edema, no cyanosis.] Neurological Exam: [No focal neurologic deficit.] Alert oriented 3. Psychiatric: Normal mood affect and normal mental status examination. Patient i s generally weak. Skin: No rashes - Labs CBC & Chem 7: 07/10/22 03:56 02/26/23 03:56 Labs: Abnormal Lab Results - Last 24 Hours (Table) 07/09/22 07/09/22 07/09/22 Range/Units 16:34 17:39 21:03 WBC (3.8-10.6) k/uL RBC (4.30-5.90) m/uL Hgb (13.0-17.5) gm/dL Hct (39.0-53.0) % RDW (11.5-15.5) % Plt Count (150-450) k/uL Macrocytosis ABG pH 7.46 H (7.35-7.45) ABG pCO2 34 L (35-45) mmHg ABG pO2 64 L (83-108) mmHg ABG Total CO2 25 H (19-24) mmol/L ABG O2 Saturation 93.4 L (94-97) % Sodium (137-145) mmol/L BUN (9-20) mg/dL Creatinine (0.66-1.25) mg/dL Glucose (74-99) mg/dL POC Glucose (mg/dL) 155 H 131 H (70-110) mg/dL Calcium (8.4-10.2) mg/dL 07/10/22 07/10/22 07/10/22 Range/Units 03:56 03:56 06:29 WBC 19.8 H (3.8-10.6) k/uL RBC 3.56 L (4.30-5.90) m/uL Hgb 11.3 L (13.0-17.5) gm/dL Hct 35.6 L (39.0-53.0) % RDW 25.5 H (11.5-15.5) % Plt Count 143 L (150-450) k/uL Macrocytosis Marked A ABG pH (7.35-7.45) ABG pCO2 (35-45) mmHg ABG pO2 (83-108) mmHg ABG Total CO2 (19-24) mmol/L ABG O2 Saturation (94-97) % Sodium 136 L (137-145) mmol/L BUN 32 H (9-20) mg/dL Creatinine 0.58 L (0.66-1.25) mg/dL Glucose 147 H (74-99) mg/dL POC Glucose (mg/dL) 137 H (70-110) mg/dL Calcium 7.9 L (8.4-10.2) mg/dL 07/10/22 Range/Units 11:41 WBC (3.8-10.6) k/uL RBC (4.30-5.90) m/uL Hgb (13.0-17.5) gm/dL Hct (39.0-53.0) % RDW (11.5-15.5) % Plt Count (150-450) k/uL Macrocytosis ABG pH (7.35-7.45) ABG pCO2 (35-45) mmHg ABG pO2 (83-108) mmHg ABG Total CO2 (19-24) mmol/L ABG O2 Saturation (94-97) % Sodium (137-145) mmol/L BUN (9-20) mg/dL Creatinine (0.66-1.25) mg/dL Glucose (74-99) mg/dL POC Glucose (mg/dL) 135 H (70-110) mg/dL Calcium (8.4-10.2) mg/dL Assessment and Plan Assessment: Impression: Acute hypoxic respiratory failure, multifactorial secondary to below Acute right lower lobe pneumonia, possibly hospital-acquired pneumonia Chronic right-sided pleural effusion and previous history of chylothorax. Unchanged in size. Advanced COPD. Underlying interstitial lung disease, possible lymphangitic carcinomatosis. Squamous cell carcinoma requiring a right lower lobectomy T3 N0 M0 Small cell lung cancer with positive subcarinal nodes, patient finished chemotherapy and radiation therapy History of pulmonary embolism, remains on anticoagulation therapy is pulmonary embolism occurred following thoracotomy and right lower lobe resection Chemotherapy-induced leukopenia Chronic anemia, chemotherapy-induced. Generalized weakness and medical debility History of radiation esophagitis. History of chylothorax. History of underlying coronary artery disease with previous stent of LAD Recommendation: Continue present supportive care measures Continue oxygen via aerosol and via nonrebreather mask Discussed again the CODE STATUS with the patient and with his daughter at bedside, and they're both agreeable to DO NOT RESUSCITATE CODE STATUS, definitely patient is not to be placed on mechanical ventilation no intubation, no CPR. Continue antibiotics as per ID on the case Continue bronchodilators Continue IV Solu-Medrol Continue diuretics and keep the patient in negative balance continue anticoagulation therapy/eliquis Patient is critically ill Prognosis extremely poor. Critical care time is over 30 Will continue to follow Time with Patient: Greater than 30
--- NOTE | 2022-07-10 12:44 | P.PN ---
Subjective Progress Note Date: 07/10/22 Principal diagnosis: Limited stage small cell lung cancer Transferred to the ICU for additional management -Noted to be saturating in the high 80s to low 90s on 60 L high flow nasal cannula and 100% FiO2 -Remains on andulufungin, linezolid, and Zosyn -Noted to have increased work of breathing compared to yesterday with increased somnolence -He was responsive to verbal stimuli but notes having increased shortness of breath Objective - Vital Signs Vital signs: Vital Signs Temp 97.2 F L 07/10/22 09:00 Pulse 124 H 07/10/22 10:00 Resp 28 H 07/10/22 10:00 BP 105/73 07/10/22 10:00 Pulse Ox 88 L 07/10/22 10:00 FiO2 94 07/10/22 11:09 Intake & Output 07/09/22 07/10/22 07/10/22 18:59 06:59 18:59 Intake Total 330 390 75 Output Total 720 Balance 330 -330 75 Weight 70.3 kg Intake: IV 390 50 .9NS 390 50 Intake, IV Titration 25 Amount Piperacillin-Tazobactam 3 25 .375 gm In Sodium Chloride 0.9% 100 ml @ 25 mls/hr IVPB Q8H [facility] Rx#: [id number] Oral 330 Output: Urine 720 Other: Voiding Method Urinal Urinal # Voids 2 # Bowel Movements 2 - Constitutional Constitutional Comment(s): Increased work of breathing compared to yesterday's exam General appearance: Present: no acute distress - Respiratory Respiratory: right: diminished - Cardiovascular Rhythm: regular - Integumentary Integumentary: Present: pale - Neurologic Neurologic: Absent: focal deficits - Labs CBC & Chem 7: 07/10/22 03:56 07/10/22 03:56 Labs: Abnormal Lab Results - Last 24 Hours (Table) 07/09/22 07/09/22 07/09/22 Range/Units 16:34 17:39 21:03 WBC (3.8-10.6) k/uL RBC (4.30-5.90) m/uL Hgb (13.0-17.5) gm/dL Hct (39.0-53.0) % RDW (11.5-15.5) % Plt Count (150-450) k/uL Macrocytosis ABG pH 7.46 H (7.35-7.45) ABG pCO2 34 L (35-45) mmHg ABG pO2 64 L (83-108) mmHg ABG Total CO2 25 H (19-24) mmol/L ABG O2 Saturation 93.4 L (94-97) % Sodium (137-145) mmol/L BUN (9-20) mg/dL Creatinine (0.66-1.25) mg/dL Glucose (74-99) mg/dL POC Glucose (mg/dL) 155 H 131 H (70-110) mg/dL Calcium (8.4-10.2) mg/dL 07/10/22 07/10/22 07/10/22 Range/Units 03:56 03:56 06:29 WBC 19.8 H (3.8-10.6) k/uL RBC 3.56 L (4.30-5.90) m/uL Hgb 11.3 L (13.0-17.5) gm/dL Hct 35.6 L (39.0-53.0) % RDW 25.5 H (11.5-15.5) % Plt Count 143 L (150-450) k/uL Macrocytosis Marked A ABG pH (7.35-7.45) ABG pCO2 (35-45) mmHg ABG pO2 (83-108) mmHg ABG Total CO2 (19-24) mmol/L ABG O2 Saturation (94-97) % Sodium 136 L (137-145) mmol/L BUN 32 H (9-20) mg/dL Creatinine 0.58 L (0.66-1.25) mg/dL Glucose 147 H (74-99) mg/dL POC Glucose (mg/dL) 137 H (70-110) mg/dL Calcium 7.9 L (8.4-10.2) mg/dL 07/10/22 Range/Units 11:41 WBC (3.8-10.6) k/uL RBC (4.30-5.90) m/uL Hgb (13.0-17.5) gm/dL Hct (39.0-53.0) % RDW (11.5-15.5) % Plt Count (150-450) k/uL Macrocytosis ABG pH (7.35-7.45) ABG pCO2 (35-45) mmHg ABG pO2 (83-108) mmHg ABG Total CO2 (19-24) mmol/L ABG O2 Saturation (94-97) % Sodium (137-145) mmol/L BUN (9-20) mg/dL Creatinine (0.66-1.25) mg/dL Glucose (74-99) mg/dL POC Glucose (mg/dL) 135 H (70-110) mg/dL Calcium (8.4-10.2) mg/dL Assessment and Plan (1) Small cell lung cancer Current Visit: Yes Status: Acute Priority: High Code(s): C34.90 - MALIGNANT NEOPLASM OF UNSP PART OF UNSP BRONCHUS OR LUNG SNOMED Code(s): 593767627 Plan: Small cell lung cancer: -Completed 3rd cycle of Carbo-BROOM STITCHER on 05/30-06/01 with addition of GCSF, given 06/02. XRT treatment is complete. Treatment currently delayed to low counts and hospital admissions. -Plan was to hold treatment and reassess in 2 weeks. If he was doing better then may consider completing last cycle of chemo, possibly dose reduction -He has had precipitous decline in his respiratory status over the past 2 days -There is no clear evidence of disease progression on most recent CT of the chest on 07/01/2022 -There was noted to be pulmonary fibrosis along with changes consistent with pneumonia -Mr. Hernandze and his family changed CODE STATUS to DNR/DNI and briefly changed back to full code and have since transitioned back to DNR/DNI -While there is no clear evidence of disease progression, he has had worsening respiratory status likely due to acute infection superimposed on small cell lung cancer, pulmonary fibrosis, and COPD -If placed on a ventilator, he would not likely be able to recover meaningful respiratory function on his own -Transitioning to comfort care is appropriate given his worsening clinical status despite maximum antimicrobial therapy
[2022-07-10] MEDS: ANIDULAFUNGIN 100 MG in SODIUM CHLORIDE 0.9% 100 ML IVPB SCH (12:49)
[2022-07-10 12:53] VITALS: TEMP 96.8
[2022-07-10] MEDS: ACETAMINOPHEN TAB 325 MG TAB PO PRN (15:25)
[2022-07-10 17:15] VITALS: BP 84/57
[2022-07-10 18:23] VITALS: PULSE 51; RESP 14
--- NOTE | 2022-07-12 12:03 | CDI ---
Documentation Clarification Form Date: 07/12/2022 11:31:52 AM From: Gabrielle Lowe RN, CCDS Email: [email or web address] Admit Date: 06/26/2022 6:51:00 PM Patient Name: Santiago Hernandez Visit Number: [id number] Discharge Date: 07/10/2022 7:30:00 PM ATTENTION: The Clinical Documentation Specialists (CDI) and [facility] Coding Staff appreciate your assistance in clarifying documentation. Please respond to the clarification below the line at the bottom and electronically sign. The CDI & [facility] Coding staff will review the response and follow-up if needed. Please note: Queries are made part of the Legal Health Record. If you have any questions, please contact the author of this message via ITS. Dr. Ruth Silverman The patient met SIRS criteria. Based on this information and the findings below, is there an additional diagnosis that is clinically appropriate for this patient? History/Risk Factors: COPD, SCLC, status post right lobectomy, chylothorax, status post Pleurx catheter insertion and removal, pulmonary embolism. Recent PET scan showing progression of the disease. Patient being treated with systemic chemotherapy and radiation therapy. Presents to ER due to worsening shortness of breath. Diagnosed with pneumonia and loculated pleural effusion. Clinical Indicators: 07/09 IM: "Acute right lower lobe pneumonia. Repeat CT chest showed improvement in the right lower lobe pneumonia and loculated right-sided pleural effusion." 06/26 Labs WBC: 8.0, lactic acid 2.3 and 1.3 06/28 Labs: WBC 13.7, Procalcitonin 0.06 07/06 Labs: Procalcitonin 0.09 07/09 Labs: WBC 25.4 Blood cultures: no growth 06/26 Vital signs: Temp 98.3, HR 127, RR 24, BP 90/62, pox 75% 07/10 Vital signs: Temp 96.6, HR 138 Treatment: 06/27 ID Consult: "patient presented to hospital with increasing shortness of breath which is likely multifactorial in this patient with history of emphysema and lung cancer now with evidence of right-sided loculated fluid concerning for possible empyema and has been in and out of the hospital. We will need to cover for resistant gram-positive as well as gram-negative." Antibiotics: IV Vancomycin 1250mg Q8H on 06/27-06/28 then 1500mg Q8H 06/28-06/30 then 1250mg Q8H 06/30-07/04. IV Zosyn 3.375gm Q8H 06/26-07/09. Levaquin 750mg po 06/29-07/06. IV Cefepime 2gm 06/27-06/29. IV Anidulafungin 200mg on 06/29 then 100mg 06/30-07/10. IV Bolus: 1L bolus 0.9 NS on 06/26 then 130/hr Is there an additional diagnosis that is clinically appropriate for this patient? [ x ] Sepsis, present on admission [ ] Sepsis, developed during stay, not present on admission [ ] No Sepsis [ ] Other, please specify [ ] Unable to determine SIRS Criteria: 2 or more of the following may indicate SIRS Temperature < 96.8F (36C) or > 101.0F (38.3C) Heart Rate > 90 bpm Respiratory Rate > 20 breaths/min or PaCO2 < 32 mmHg White Blood Cell Count > 12,000 or < 4,000 cells/mm3 or > 10% bands MTDD
--- NOTE | 2022-07-27 11:58 | P.PN ---
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 07/02/2022 Patient is in the MICU. Currently on Airvo at 60 L and 60% FiO2. Patient. CT chest done yesterday showed COPD with advanced emphysema and pulmonary arterial hypertension. Redemonstrated soft tissue thickening posterior wall of the right lower lobe pulmonary artery branch and resulting mild luminal narrowing. Chronic thick-walled pleural fluid collection at the posterior right base. Groundglass changes throughout the lower lungs appear similar. Patient is being continued broad-spectrum antibiotics Levaquin Zosyn and vancomycin and also on Eraxis. Currently on IV steroids. Laboratory data showed WBC 14.7 hemoglobin 10.4, MCV 96.2 and platelets 262 sodium 133 potassium 3.9 chloride 101 bicarb is 27 BUN 29 and creatinine 0.58 and calcium 7.9. 07/03/2022 Patient remains in the MICU. Currently on 60 L at FiO2 60%. Sitting which is comfortable. Awake alert and oriented x3. No complaints of chest pain or worsening shortness of breath. No cough or sputum production. Patient remains on broad-spectrum antibiotics and Eraxis. Also on anticoagulation with Eliquis. Continued on IV steroids and DuoNebs. Patient also on IV Lasix 20 mg daily. Laboratory data showed creatinine level 0.58 and blood sugar is controlled. ID and pulmonary is on board. 07/04/2022 Patient is in the MICU. Currently on high flow oxygen 60 L at 55% FiO2. Awake alert and oriented x3. No complaints of chest pain. No fever no chills. Patient is being continued broad-spectrum antibiotics, vancomycin changed to Zyvox. Currently on Zosyn and Levaquin. Also on Eraxis Patient is being current on IV steroids and DuoNebs and Pulmicort inhalation. Also being continued Lasix 20 mg IV daily. Pulmonary and ID is on board.. Laboratory data showed WBC 19.9 hemoglobin 10.8 and platelets 265 sodium 135 potassium 4.4 chloride 102 bicarb is 29 BUN 24 and creatinine 0.58 and calcium 8.2. Albumin 3.3. 07/05/2022 Patient remains in the MICU. Currently requiring high flow oxygen at 60 L and 60% FiO2. Sitting in the chair comfortably. Awake alert and oriented x3. No acute distress. Also on broad-spectrum antibiotics. Laboratory data showed WBC 17.2 hemoglobin 11.1 platelets 235 Sodium 132 potassium 4.6 BUN 24 and creatinine 0.64 and calcium 8.1. Hemodynamically stable. Chest x-ray today showed right lower lobe infiltrate appears to be getting better. Left-sided increased opacity may be chronic. Pleural effusion is suspected. Repeat CT scan of the chest or ultrasound of the right lower lung lobes may be considered for further evaluation of the pleural fluid. 07/06/2022 Patient is in the MICU. Remains on high flow oxygen. Currently at 60 L at 70% FiO2. Breathing status remains the same. No complaints of chest pain or worsening shortness of breath. Patient has been afebrile. Patient was having some swelling of the left lower extremity but improved after action his legs. Patient is sitting in the chair most of the time. Currently anticoagulation with Eliquis due to history of PE. Continued on broad-spectrum antibiotics. And also Eraxis. Also on IV steroids. Chest x-ray showed no significant change. Laboratory data showed WBC 19.3 hemoglobin 11.7 and platelets 254 neutrophils 17.7 BUN 27 creatinine 0.7 and procalcitonin level is 0.09 and magnesium 2.4. 07/07/2022 Patient is currently sitting in the chair. Awake alert and oriented x3. Still requiring oxygen high flow at 60% FiO2 and 60 L. Patient is using 100% nonrebreather intermittently. Denies any complaints of chest pain. Exertional dyspnea without much improvement. Afebrile. Patient is being current on antibiotics and home of Zosyn and Zyvox. No complaints of nausea or vomiting. Patient is also on IV Solu-Medrol, DuoNebs, Pulmicort and Perforomist inhalations. Also on IV Lasix 20 mg daily. Laboratory data showed WBC 22.3 hemoglobin 12.1 and platelets 236 Sodium 133 potassium 4.4 chloride 99 bicarb is 28 BUN 31 and creatinine 0.6 Blood sugar is 130. Calcium 8.0. Sputum culture and blood cultures have been negative. Pulmonary and ID is on board. 07/08/2022 Patient is currently sitting in the chair. In the select care unit. No complaints of chest pain. Still having exertional dyspnea with minimal ambulation. Requiring high flow oxygen 60 L and 70% FiO2. Blood cultures and sputum cultures have been negative. Continue IV Lasix 20 mg daily and, Solu-Medrol IV, breathing treatments and broad-spectrum antibiotic in the form of Zosyn and Zyvox. Also on Eraxis. Patient has been afebrile. No nausea vomiting abdominal pain or diarrhea. No sputum production. Pulmonary and ID is on board. Patient still anxious otherwise. 07/09/2022 Patient is currently in the recliner. CT of the chest. Awake alert and oriented but very anxious. Shortness of breath with minimal exertion and is requiring 60 L oxygen with 90% FiO2 and saturating at high 80s. Afebrile otherwise. Patient is being continued IV Solu-Medrol, broad-spectrum antibiotics and Eraxis. Also on anticoagulation with Eliquis. Patient is getting DuoNebs and IV Lasix also. Laboratory data showed WBC count 25.4 and hemoglobin 12.3 and platelets 182 Neutrophils 24.0 Sodium 134 potassium 5.9, BUN 27 creatinine 0.55 and blood sugar is 128. Total bilirubin level is 1.6 and calcium 8.1 ALT 17 alk phos 93 and total protein 6.0 and albumin 3.5. 07/10/2022 Patient was transferred back to ICU yesterday. Patient and family would like to change her CODE STATUS to full. Patient was transferred to MICU for possible intubation. ICU team discussed the CODE STATUS again with him and his daughter. Currently course status changed to DO NOT RESUSCITATE/DO NOT INTUBATE. Otherwise patient is still on high flow oxygen. Possible lymphangitic carcinomatosis is being considered. Patient is also on her person nontender breath. Oxygenation level is upper 80s. Chest x-ray showed right basilar infiltrate/worsening and small right-sided pleural effusion also shows nonspecific interstitial changes bilaterally. Pulmonary/ critical care team is on board. Laboratory data reviewed. Current medications reviewed. Objective - Vital Signs Vital signs: Vital Signs Temp 96.8 F L 07/10/22 12:00 Pulse 51 L 07/10/22 17:15 Resp 14 07/10/22 17:15 BP 84/57 07/10/22 17:00 Pulse Ox 88 L 07/10/22 17:00 FiO2 94 07/10/22 15:11 Intake & Output 07/10/22 07/10/22 07/11/22 06:59 18:59 06:59 Intake Total 390 330 Output Total 720 700 Balance -330 -370 Weight 70.3 kg Intake: IV 390 230 .9NS 390 130 anidulafungin 100 Intake, IV Titration 100 Amount Piperacillin-Tazobactam 3 100 .375 gm In Sodium Chloride 0.9% 100 ml @ 25 mls/hr IVPB Q8H [facility] Rx#: [id number] Output: Urine 720 700 Other: Voiding Method Urinal Urinal - Exam PHYSICAL EXAMINATION: Patient is lying in the bed comfortably, no acute distress, awake alert and oriented.. HEENT: Normocephalic. Neck is supple. Pupils reactive. Nostrils clear. Oral cavity is moist. Neck reveals no JVD, carotid bruits, or thyromegaly. CHEST EXAMINATION: Trachea is central. Symmetrical expansion. Bilateral decreased air movement and scattered crackles. No wheezing or rhonchi.. CARDIAC: Normal S1, S2 with no gallops. No murmurs ABDOMEN: Soft. Bowel sounds present. Nontender. No organomegaly. No abdominal bruits. Extremities: reveal no edema. No clubbing or cyanosis Neurologically awake, alert, oriented x3 with well-coordinated movements. No focal deficits noted Skin: No rash or skin lesions. Psychiatric: Coperative. Nonsuicidal, Musculoskeletal: No joint swelling or deformity. Normal range of motion. - Labs CBC & Chem 7: 07/10/22 03:56 07/10/22 03:56 Labs: Abnormal Lab Results - Last 24 Hours (Table) 07/10/22 07/10/22 07/10/22 Range/Units 03:56 03:56 06:29 WBC 19.8 H (3.8-10.6) k/uL RBC 3.56 L (4.30-5.90) m/uL Hgb 11.3 L (13.0-17.5) gm/dL Hct 35.6 L (39.0-53.0) % RDW 25.5 H (11.5-15.5) % Plt Count 143 L (150-450) k/uL Macrocytosis Marked A Sodium 136 L (137-145) mmol/L BUN 32 H (9-20) mg/dL Creatinine 0.58 L (0.66-1.25) mg/dL Glucose 147 H (74-99) mg/dL POC Glucose (mg/dL) 137 H (70-110) mg/dL Calcium 7.9 L (8.4-10.2) mg/dL 07/10/22 Range/Units 11:41 WBC (3.8-10.6) k/uL RBC (4.30-5.90) m/uL Hgb (13.0-17.5) gm/dL Hct (39.0-53.0) % RDW (11.5-15.5) % Plt Count (150-450) k/uL Macrocytosis Sodium (137-145) mmol/L BUN (9-20) mg/dL Creatinine (0.66-1.25) mg/dL Glucose (74-99) mg/dL POC Glucose (mg/dL) 135 H (70-110) mg/dL Calcium (8.4-10.2) mg/dL Assessment and Plan Assessment: Acute right lower lobe pneumonia pneumonia. Repeat CT chest showed improvement in the right lower lobe pneumonia and loculated right-sided pleural effusion and extensive emphysematous/bullous changes and mediastinal lymphadenopathy. Possible lymphangitic carcinomatosis is being considered. Acute hypoxic respiratory failure currently requiring high flow oxygen via AIRVO Advanced COPD and chronic hypoxic respiratory failure on 2 L oxygen at home. Squamous cell carcinoma and small cell lung cancer status post right lower lobe resection and on chemotherapy and completed radiation therapy. History of PE History of right chylothorax status post Pleurx catheter placement and removal Generalized weakness Coronary with history of stent placement DVT prophylaxis patient is already on anticoagulation Plan: Patient will be continued on high flow oxygen at 60 L and 90% FiO2.Patient is maxed out on oxygen and saturating at upper 80s. Currently on broad-spectrum antibiotics, Eraxis and IV steroids. On DuoNebs and Pulmicort, Perforomist. Anticoagulation with Eliquis Blood cultures negative. ID and pulmonary is on board. DVT prophylaxis on Protonix. Due to patient being severely dyspneic with minimal exertion even with high flow oxygen, discussed with the patient and his at bedside in detail. Patient is agreeable to change of CODE STATUS after further discussion by ICU team today. Changed back to DNR/DNI. Does not want intubation. Prognosis poor at this time. Time with Patient: Greater than 30
--- NOTE | 2022-07-27 12:01 | P.DS ---
Providers Date of admission: 06/26/22 18:51 Expected date of discharge: 07/10/22 Attending physician: Kale Patiño Consults: 06/26/22 18:51 Consult Physician Routine Consulting Provider: Jigar Rivera Consult Reason/Comments: Lung cancer, COPD exacerbation, pneumonia Do you want consulting provider notified?: Yes 06/26/22 18:52 Consult Physician Routine Consulting Provider: Иван De Anda Consult Reason/Comments: Lung cancer Do you want consulting provider notified?: Yes, Notify in am 06/27/22 11:49 Consult Physician Routine Consulting Provider: Sparkle Nova Consult Reason/Comments: pneumonia Do you want consulting provider notified?: Yes Primary care physician: 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 Acute right lower lobe pneumonia pneumonia. Repeat CT chest showed improvement in the right lower lobe pneumonia and loculated right-sided pleural effusion and extensive emphysematous/bullous changes and mediastinal lymphadenopathy. Possible lymphangitic carcinomatosis is being considered. Acute hypoxic respiratory failure currently requiring high flow oxygen via AIRVO Advanced COPD and chronic hypoxic respiratory failure on 2 L oxygen at home. Squamous cell carcinoma and small cell lung cancer status post right lower lobe resection and on chemotherapy and completed radiation therapy. History of PE History of right chylothorax status post Pleurx catheter placement and removal Generalized weakness Coronary with history of stent placement DVT prophylaxis patient is already on anticoagulation hospital course Patient is a 62-year-old male with a known history of COPD, small cell lung cancer and squamous cell lung cancer status post right lobectomy, chylothorax status post Pleurx catheter insertion and removal, pulmonary embolism and recent PET scan showing progression of the disease and is being treated with systemic chemotherapy and underwent radiation therapy presents to ER due to worsening shortness of breath. 07/02/2022 Patient is in the MICU. Currently on Airvo at 60 L and 60% FiO2. Patient. CT chest done yesterday showed COPD with advanced emphysema and pulmonary arterial hypertension. Redemonstrated soft tissue thickening posterior wall of the right lower lobe pulmonary artery branch and resulting mild luminal narrowing. Chronic thick-walled pleural fluid collection at the posterior right base. Groundglass changes throughout the lower lungs appear similar. Patient is being continued broad-spectrum antibiotics Levaquin Zosyn and vancomycin and also on Eraxis. Currently on IV steroids. Laboratory data showed WBC 14.7 hemoglobin 10.4, MCV 96.2 and platelets 262 sodium 133 potassium 3.9 chloride 101 bicarb is 27 BUN 29 and creatinine 0.58 and calcium 7.9. 07/03/2022 Patient remains in the MICU. Currently on 60 L at FiO2 60%. Sitting which is comfortable. Awake alert and oriented x3. No complaints of chest pain or worsening shortness of breath. No cough or sputum production. Patient remains on broad-spectrum antibiotics and Eraxis. Also on anticoagulation with Eliquis. Continued on IV steroids and DuoNebs. Patient also on IV Lasix 20 mg daily. Laboratory data showed creatinine level 0.58 and blood sugar is controlled. ID and pulmonary is on board. 07/04/2022 Patient is in the MICU. Currently on high flow oxygen 60 L at 55% FiO2. Awake alert and oriented x3. No complaints of chest pain. No fever no chills. Patient is being continued broad-spectrum antibiotics, vancomycin changed to Zyvox. Currently on Zosyn and Levaquin. Also on Eraxis Patient is being current on IV steroids and DuoNebs and Pulmicort inhalation. Also being continued Lasix 20 mg IV daily. Pulmonary and ID is on board.. Laboratory data showed WBC 19.9 hemoglobin 10.8 and platelets 265 sodium 135 potassium 4.4 chloride 102 bicarb is 29 BUN 24 and creatinine 0.58 and calcium 8.2. Albumin 3.3. 07/05/2022 Patient remains in the MICU. Currently requiring high flow oxygen at 60 L and 60% FiO2. Sitting in the chair comfortably. Awake alert and oriented x3. No acute distress. Also on broad-spectrum antibiotics. Laboratory data showed WBC 17.2 hemoglobin 11.1 platelets 235 Sodium 132 potassium 4.6 BUN 24 and creatinine 0.64 and calcium 8.1. Hemodynamically stable. Chest x-ray today showed right lower lobe infiltrate appears to be getting better. Left-sided increased opacity may be chronic. Pleural effusion is suspected. Repeat CT scan of the chest or ultrasound of the right lower lung lobes may be considered for further evaluation of the pleural fluid. 07/06/2022 Patient is in the MICU. Remains on high flow oxygen. Currently at 60 L at 70% FiO2. Breathing status remains the same. No complaints of chest pain or worsening shortness of breath. Patient has been afebrile. Patient was having some swelling of the left lower extremity but improved after action his legs. Patient is sitting in the chair most of the time. Currently anticoagulation with Eliquis due to history of PE. Continued on broad-spectrum antibiotics. And also Eraxis. Also on IV steroids. Chest x-ray showed no significant change. Laboratory data showed WBC 19.3 hemoglobin 11.7 and platelets 254 neutrophils 17.7 BUN 27 creatinine 0.7 and procalcitonin level is 0.09 and magnesium 2.4. 07/07/2022 Patient is currently sitting in the chair. Awake alert and oriented x3. Still requiring oxygen high flow at 60% FiO2 and 60 L. Patient is using 100% nonrebreather intermittently. Denies any complaints of chest pain. Exertional dyspnea without much improvement. Afebrile. Patient is being current on antibiotics and home of Zosyn and Zyvox. No complaints of nausea or vomiting. Patient is also on IV Solu-Medrol, DuoNebs, Pulmicort and Perforomist inhalations. Also on IV Lasix 20 mg daily. Laboratory data showed WBC 22.3 hemoglobin 12.1 and platelets 236 Sodium 133 potassium 4.4 chloride 99 bicarb is 28 BUN 31 and creatinine 0.6 Blood sugar is 130. Calcium 8.0. Sputum culture and blood cultures have been negative. Pulmonary and ID is on board. 07/08/2022 Patient is currently sitting in the chair. In the select care unit. No complaints of chest pain. Still having exertional dyspnea with minimal ambulation. Requiring high flow oxygen 60 L and 70% FiO2. Blood cultures and sputum cultures have been negative. Continue IV Lasix 20 mg daily and, Solu-Medrol IV, breathing treatments and broad-spectrum antibiotic in the form of Zosyn and Zyvox. Also on Eraxis. Patient has been afebrile. No nausea vomiting abdominal pain or diarrhea. No sputum production. Pulmonary and ID is on board. Patient still anxious otherwise. 07/09/2022 Patient is currently in the recliner. CT of the chest. Awake alert and oriented but very anxious. Shortness of breath with minimal exertion and is requiring 60 L oxygen with 90% FiO2 and saturating at high 80s. Afebrile o therwise. Patient is being continued IV Solu-Medrol, broad-spectrum antibiotics and Eraxis. Also on anticoagulation with Eliquis. Patient is getting DuoNebs and IV Lasix also. Laboratory data showed WBC count 25.4 and hemoglobin 12.3 and platelets 182 Neutrophils 24.0 Sodium 134 potassium 5.9, BUN 27 creatinine 0.55 and blood sugar is 128. Total bilirubin level is 1.6 and calcium 8.1 ALT 17 alk phos 93 and total protein 6.0 and albumin 3.5. 07/10/2022 Patient was transferred back to ICU yesterday. Patient and family would like to change her CODE STATUS to full. Patient was transferred to MICU for possible intubation. ICU team discussed the CODE STATUS again with him and his daughter. Currently course status changed to DO NOT RESUSCITATE/DO NOT INTUBATE. Otherwise patient is still on high flow oxygen. Possible lymphangitic carcinomatosis is being considered. Patient is also on her person nontender breath. Oxygenation level is upper 80s. Chest x-ray showed right basilar infiltrate/worsening and small right-sided pleural effusion also shows nonspecific interstitial changes bilaterally. Pulmonary/ critical care team is on board. Patient had worsening respiratory status with max high flow oxygen and her person nontender with. Patient on 07/10/2022 at 17:13. Patient's daughter is at bedside. Family has been notified. Patient Condition at Discharge: Undetermined Plan - Discharge Summary Discharge Rx Participant: No New Discharge Prescriptions: No Action Atorvastatin [Lipitor] 80 mg PO HS #90 tab Nitroglycerin Sl Tabs [Nitrostat] 0.4 mg SUBLINGUAL Q5M PRN #25 tab PRN Reason: Chest Pain Fluticasone/Umeclidin/Vilanter [Trelegy Ellipta 100-62.5-25] 1 puff INHALATION RT-HS Omeprazole [PriLOSEC] 20 mg PO AC-BRKFST Albuterol Nebulized [Ventolin Nebulized] 2.5 mg INHALATION RT-QID PRN PRN Reason: Shortness Of Breath Multivitamins, Thera [Multivitamin (formulary)] 1 tab PO DAILY Apixaban [Eliquis] 5 mg PO BID Albuterol Inhaler [Ventolin Hfa Inhaler] 1 - 2 puff INHALATION RT-Q6H PRN PRN Reason: Shortness Of Breath Acetaminophen Tab [Tylenol] 650 mg PO Q6HR PRN tab PRN Reason: Fever And/ Or Pain Metoprolol Tartrate [Lopressor] 12.5 mg PO BID 30 Days #60 tab Protandim Life Advantage 2 cap PO DAILY Simethicone [Gas-X] 125 mg PO ACHS PRN PRN Reason: Bloating Lidocaine Viscous 2% [Xylocaine Viscous] 15 ml PO AC-TID PRN PRN Reason: MOUTH PAIN Ipratropium-Albuterol Nebulize [Duoneb 0.5 mg-3 mg/3 ml Soln] 3 ml INHALATION RT-QID #100 each Ipratropium-Albuterol Nebulize [Duoneb 0.5 mg-3 mg/3 ml Soln] 3 ml INHALATION RT-Q2H PRN each PRN Reason: Shortness Of Breath Or Wheezing LORazepam [Ativan] 0.5 mg PO DAILY PRN PRN Reason: Anxiety Discharge Medication List Atorvastatin [Lipitor] 80 mg PO HS #90 tab 07/03/14 [Rx] Nitroglycerin Sl Tabs [Nitrostat] 0.4 mg SUBLINGUAL Q5M PRN #25 tab 07/03/14 [Rx] Fluticasone/Umeclidin/Vilanter [Trelegy Ellipta 100-62.5-25] 1 puff INHALATION RT-HS 02/02/22 [History] Protandim Life Advantage 2 cap PO DAILY 02/21/22 [History] Omeprazole [PriLOSEC] 20 mg PO AC-BRKFST 04/21/22 [History] Simethicone [Gas-X] 125 mg PO ACHS PRN 04/21/22 [History] Albuterol Inhaler [Ventolin Hfa Inhaler] 1 - 2 puff INHALATION RT-Q6H PRN 06/08/22 [History] Albuterol Nebulized [Ventolin Nebulized] 2.5 mg INHALATION RT-QID PRN 06/08/22 [History] Apixaban [Eliquis] 5 mg PO BID 06/08/22 [History] Lidocaine Viscous 2% [Xylocaine Viscous] 15 ml PO AC-TID PRN 06/08/22 [History] Multivitamins, Thera [Multivitamin (formulary)] 1 tab PO DAILY 06/08/22 [History] Acetaminophen Tab [Tylenol] 650 mg PO Q6HR PRN tab 06/17/22 [Rx] Ipratropium-Albuterol Nebulize [Duoneb 0.5 mg-3 mg/3 ml Soln] 3 ml INHALATION RT-Q2H PRN each 06/17/22 [Rx] Ipratropium-Albuterol Nebulize [Duoneb 0.5 mg-3 mg/3 ml Soln] 3 ml INHALATION RT-QID #100 each 06/17/22 [Rx] Metoprolol Tartrate [Lopressor] 12.5 mg PO BID 30 Days #60 tab 06/17/22 [Rx] LORazepam [Ativan] 0.5 mg PO DAILY PRN 06/26/22 [History] Follow up Appointment(s)/Referral(s): Yovany Hassan MD [STAFF PHYSICIAN] - 07/22/22 9:00 am ([facility] ) Alethea Dior MD [Primary Care Provider] - 1-2 days Discharge Disposition: - Preliminary Cause of Preliminary Cause of : Acute hypoxic respiratory failure secondary to small and squamous cell CA
== END 2022-07-10 19:30 | disposition expired | DRG 720 ==
LOC: EC 12:22 → 3SCARD 18:51 → 5NMEDONC 06-27 14:34 → 2SICU 06-27 16:43 → 3SCARD 07-06 16:04 → 2SICU 07-09 18:39
PROVIDERS: ADMIT Hospitalist; ATTEND Hospitalist
DX: A41.9 Sepsis, unspecified organism (principal); J15.6 Pneumonia due to other Gram-negative bacteria; J96.21 Acute and chronic respiratory failure with hypoxia; C77.0 Secondary and unspecified malignant neoplasm of lymph nodes of head, face and neck; C77.1 Secondary and unspecified malignant neoplasm of intrathoracic lymph nodes; C34.31 Malignant neoplasm of lower lobe, right bronchus or lung; J90 Pleural effusion, not elsewhere classified; J84.9 Interstitial pulmonary disease, unspecified; I27.21 Secondary pulmonary arterial hypertension; D70.1 Agranulocytosis secondary to cancer chemotherapy; D64.81 Anemia due to antineoplastic chemotherapy; J84.10 Pulmonary fibrosis, unspecified; J43.9 Emphysema, unspecified; Z66 Do not resuscitate; Z51.5 Encounter for palliative care; Z28.310 Unvaccinated for COVID-19; Z20.822 Contact with and (suspected) exposure to COVID-19; D69.59 Other secondary thrombocytopenia; E86.0 Dehydration; T45.1X5A Adverse effect of antineoplastic and immunosuppressive drugs, initial encounter; R59.0 Localized enlarged lymph nodes; I44.4 Left anterior fascicular block; E78.5 Hyperlipidemia, unspecified; K21.9 Gastro-esophageal reflux disease without esophagitis; K40.90 Unilateral inguinal hernia, without obstruction or gangrene, not specified as recurrent; I10 Essential (primary) hypertension; I25.10 Atherosclerotic heart disease of native coronary artery without angina pectoris; F41.9 Anxiety disorder, unspecified; I25.2 Old myocardial infarction; Z79.01 Long term (current) use of anticoagulants; Z79.51 Long term (current) use of inhaled steroids; Z79.899 Other long term (current) drug therapy; Z85.118 Personal history of other malignant neoplasm of bronchus and lung; Z87.891 Personal history of nicotine dependence; Z86.711 Personal history of pulmonary embolism; Z92.3 Personal history of irradiation; Z92.21 Personal history of antineoplastic chemotherapy; Z86.73 Personal history of transient ischemic attack (TIA), and cerebral infarction without residual deficits; Z87.442 Personal history of urinary calculi; Z95.5 Presence of coronary angioplasty implant and graft
CPT/HCPCS: 36415; 36600; 71045; 71046; 71260; 71275; 80048; 80053; 80202; 82565; 82805; 83036; 83605; 83735; 83880; 84145; 84484; 85025; 85027; 85379; 85610; 85730; 86140; 87040; 87070; 87205; 87449; 87636; 93005; 94640; 94760; 96361; 96365; 96366; 96367; 96368; 99291